=== PATIENT | male | born 1950 | race Caucasian/White ===

== ENCOUNTER 2017-08-15 07:58 | Emergency (ER) | payer MEDICARE, MEDICAID | END 2017-08-15 08:43 | disposition left against medical advice (07) | LOC: ERS 07:58 | DX: Z53.21 Procedure and treatment not carried out due to patient leaving prior to being seen by health care provider (principal) ==

== ENCOUNTER 2017-08-26 04:12 | Inpatient (IN) | payer MEDICARE, MEDICAID ==
[2017-08-26 05:00] LABS: #Eosinphils 0.4 thou/uL (0.0-0.7); #Lymphocytes 1.5 thou/uL (1.20-3.40); #Monocytes 0.4 thou/uL (0.11-0.59); #Neutrophils 5.6 thou/uL (1.40-6.50); %Basophils 0.6 % (0.0-1.0); %Eosinophils 5.1 % (0.0-10.0); %Lymphocytes 18.6 % (21.0-51.0); %Monocytes 5.5 % (0.0-10.0); Mean Platelet Volume 7.8 fL (7.4-10.4); Red Blood Cell (RBC) Count 4.53 mill/uL (4.70-6.10); White Blood Cell (WBC) Count 7.9 thou/uL (4.8-10.8)
[2017-08-26] MEDS ORDERED: methylPREDNISolone Sod Succ/PF 125 MG/2 ML VIAL ONE ×2 (05:01→05:02)
[2017-08-26] MEDS ORDERED: Water For Inject, Bacteriostat 30 ML ONE (05:03)
[2017-08-26 05:16] LABS: ALT (SGPT) 13 U/L (8-55); AST (SGOT) 13 U/L (5-34); Alkaline Phosphatase 110 U/L (40-150); Anion Gap 14 mmol/L (10-20); BUN (Urea Nitrogen) 19 mg/dL (8.4-25.7); Bilirubin, Total 0.3 mg/dL (0.2-1.2); Calc. Creatinine Clearance 0 mL/min (70-130); Calcium 9.4 mg/dL (7.8-10.44); Carbon Dioxide 25 mmol/L (23-31); Chloride 99 mmol/L (98-107); Estimated GFR-MDRD 41; Globulin 3.5 g/dL (2.4-3.5); Protein, Total 7.5 g/dL (5.8-8.1)
[2017-08-26 05:19] LABS: Troponin I Less than 0.010 ng/mL (< 0.028)
[2017-08-26 05:29] LABS: Anion Gap 12 mmol/L (-14-95); T. Carbon Dioxide 28.3 mmol/L (1.0-85.0); vO2 Saturation-calc 84.1 % (0.0-100.0)
[2017-08-26] MEDS ORDERED: Morphine 10 MG/ML VIAL ONE (06:14)
--- NOTE | 2017-08-26 08:02 | RAD ---
LEFT FOOT 3 VIEWS: Date: 08/26/17 HISTORY: 66-year-old male with left second toe pain. FINDINGS: There have been amputation changes of the first and second toe with stable appearing first toe. The second toe amputation shows progressive bone loss when compared to the 04/22/17 study. The distal an d middle phalanges are totally eroded and there is some bony demineralization within the medial aspe ct of the distal first metatarsal. If the patient has not had intervening surgical amputation, then this certainly would be evidence for extensive osteomyelitis and progressive bony destruction. IMPRESSION: Destructive changes of the distal second toe with progressive bony destruction of the distal and mid dle phalanges when compared to prior studies, the most recent of which is 06/16/17. Evidence for dede tructive changes of the medial aspect of the second toe proximal interphalangeal joint, as well as t he medial aspect of the distal proximal phalanx, certainly concerning for osteomyelitis. POS: [facility]
--- NOTE | 2017-08-26 08:23 | RAD ---
PORTABLE CHEST ONE VIEW: Date: 08-26-17 Time: 4:43 a.m. History: Shortness of breath. FINDINGS/IMPRESSION: The heart is enlarged. No focal areas of consolidation or pneumothorax, jan pulmonary edema or ple ural effusions are seen. POS: [facility]
[2017-08-26] MEDS ORDERED: Ondansetron ODT 4 MG TAB PO PRN (10:39)
[2017-08-26] MEDS ORDERED: traMADol HCl 50 MG TAB PO PRN ×2 (10:39→15:45)
[2017-08-26] MEDS ORDERED: Sodium Chloride 0.9% 1,000 ML IV SCH (10:39)
[2017-08-26] MEDS ORDERED: Acetaminophen 325 MG TAB PO PRN (10:39)
[2017-08-26] MEDS ORDERED: Morphine PF 1 MG/ML SYR IVP PRN (10:47)
[2017-08-26 11:25] LABS: Hemoglobin A1c 8.5 % (4.0-6.0)
[2017-08-26] MEDS ORDERED: Calcium Chloride 1 GM/10 ML Abboject SYRINGE ONE (11:27)
[2017-08-26 11:30] LABS: Troponin I 0.011 ng/mL (< 0.028)
[2017-08-26] MEDS ORDERED: Dextrose 50% Abboject 50 ML SYRINGE SLOW IVP PRN (11:31)
[2017-08-26] MEDS ORDERED: HumaLOG 300 UNITS/3 ML VIAL SC PRN ×2 (11:31)
[2017-08-26] MEDS ORDERED: Dextrose 5% in Water 1,000 ML IV PRN (11:31)
[2017-08-26] MEDS ORDERED: Labetalol HCl 100 MG/20 ML VIAL SLOW IVP PRN (11:42)
[2017-08-26] MEDS ORDERED: Hydrochlorothiazide 25 MG TAB PO SCH (12:00)
--- NOTE | 2017-08-26 12:03 | PDOC.EVN ---
Attending Addendum - Attending Addendum I personally evaluated the patient and discussed the management with Dr. Elliott. I agree with the History, Examination, Assessment and Plan documented in his H& P with any addition or exceptions noted below. Patient with longstanding history of osteomyelitis with outpatient wound care but suggestion for amputation presented to ER this morning with complaints of shortness of breath, change in sputum production, and worsening toe appearance and pain. His vitals are stable and do not indicate hypoxia, and his physical exam shows diminished air entry in lungs but no overt consolidation. His L foot toe shows obvious tissue destruction and drainage. CXR shows no acute process, but XR of the toe shows bony changes consistent with continued osteomyelitis. He is being admitted to our service for mild COPD exacerbation but most significantly for his continued toe osteomyelitis with likely extension. He will be started on Vanc and have consulted wound care and Gen Surg for possible debridement versus most likely amputation. He will be started on Levaquin for presumed COPD exacerbation, and this does not seem to be causing much issue from respiratory standpoint as he has only minimal wheezes and is satting well on room air. Await recommendations from Gen Surg for further treatment. Patient should be admitted under inpatient status due to significant L foot digit osteomyelitis.
[2017-08-26] MEDS: Sodium Chloride 0.9% 1,000 ML IV SCH (12:13)
[2017-08-26] MEDS ORDERED: Morphine 4 MG/ML VIAL SLOW IVP PRN (14:57)
--- NOTE | 2017-08-26 15:28 | HP-2 ---
DATE OF ADMISSION: 08/26/2017 LOCATION OF ADMISSION: [facility]. ATTENDING: Dr. Colvin. RESIDENT: Adi Elliott, PGY-1 CHIEF COMPLAINT: Left toe pain and shortness of breath. HISTORY OF PRESENT ILLNESS: This is a 66-year-old male that presents with left second toe pain and reporting having shortness of breath. Has had a severe infection in his left second toe for months now. He has been followed up and hospitalized for this previously in October. He has been following up outpatient at the wound clinic and getting regimens of antibiotics. Last time, he followed up at [facility] was about a month ago and he states pain has gotten way worse. It is hard for him to walk on it. It is having drainage from it right now. Patient reports having a cold as well for the last 3-4 days and has been coughing up a thick yellow sputum. He reports having fever and chills for the last 3-4 days as well and has not recorded a fever. He said he has been waking up short of breath and taking him 4-5 minutes to get his breath back. Gets SOB when walking. Denies any nasal congestion. Denies any chest pain. Denies any nausea or vomiting. The patient also states that he had a Staph infection in his chest when he had open heart surgery and they had to do a clean out. He has multiple little brown melendez on his legs, likely septic emboli from the infection is what he states. Denies any other concerns or complaints at this time. After reviewing the patient's records, he was previously hospitalized in October of this year, got an MRI which showed osteomyelitis of the left toe. Patient would then leave AMA from that hospital visit and has since then been trying to take care of the toe with outpatient antibiotics in [facility]. REVIEW OF SYSTEMS: All review of systems is not listed in the HPI or otherwise negative at this time. PAST MEDICAL HISTORY: Hyperlipidemia, COPD, type 2 diabetes mellitus, hypertension, coronary artery disease, status post 3-vessel CABG, history of left second digit osteomyelitis. PAST SURGICAL HISTORY: Left wrist surgery and 3-vessel CABG. ALLERGIES: No known drug allergies. MEDICATIONS: He reports lisinopril and metformin unknown dose at this time. FAMILY HISTORY: His dad had heart trouble and his mom is still living. SOCIAL HISTORY: Smokes 1 pack per day for the last 50 years. Denies alcohol use and smokes marijuana on occasion. PHYSICAL EXAMINATION: VITAL SIGNS: Temperature is 97.6, pulse is 84, respirations 20, O2 sat is 97% on room air, and blood pressure was 178/78. GENERAL: He is alert and oriented x3. He does appear to be somewhat ill. He is well-developed, obese, and appropriately interactive. EYES: PERRLA. Conjunctivae within normal limits. ENT: Nasal mucosa within normal limits. Oropharynx is within normal limit. No erythema noted. NECK: Supple, no lymphadenopathy, no thyromegaly, no bruits. CARDIOVASCULAR: Regular rate and rhythm, no murmur, no gallops. Radial pulses palpated bilaterally. Pedal pulses are palpated bilaterally, but very faint. RESPIRATORY: He has normal breathing effort, no retractions. He does have expiratory wheezes noted in all lung lobes on expiration, maybe some crackles on auscultation as well. SKIN: His feet are cool to touch. Other extremities are warm. He does have a little like brown kind of hurt looks like scarred lesions all over his left leg. He does have vitiligo noted on his arms. He does have what looks like actinic keratosis noted on his hands as well. ABDOMEN: Soft and nontender to palpation. Bowel sounds are in all 4 quadrants. No masses. It is distended. He is noted to have an umbilical hernia. EXTREMITIES: No edema. MUSCULOSKELETAL: Structure is within normal limit. Tone is within normal limit. He has full range of motion. Does have pain to palpation of the toe and his left second toe is red and black. It is very deformed at this time. It is currently draining a purulent fluid from an open site, redness extends to the base of the toe on his right big toe as well. He does have a little bit redness maybe a little black, possibly dry blood. NEUROLOGIC: No focal neuro deficit. PSYCHIATRIC: Appropriate. LABORATORY DATA: White blood cell count is 7.9, hemoglobin 13.5, hematocrit 40 , platelet count is 383. Sodium is 134, potassium is 4.2, chloride is 99, bicarbonate is 25, BUN is 19, creatinine is 1.67, glucose is 323, calcium is 8.4 , total protein is 7.5, albumin is 4.0, total bilirubin 0.3, AST 13, ALT 13, alkaline phosphatase is 110. ESR is 37, CK-MB was 3.4. Troponin was less than 0.01 and BNP was 114.9. Chest x-ray 08/26/2017, showed the heart is enlarged, no focal areas of consolidation or pneumothorax, jan pulmonary edema or pleural effusions are seen. Foot x-ray 08/26/2017, showed destructive changes of the distal second toe with progressively bony destruction of the distal middle phalanges when compared to prior studies most recent of which is 2016. Evidence for destructive changes in the medial aspect of the second toe proximal interphalangeal joint as well as the medial aspect of the distal proximal phalanx, certainly concerning for osteomyelitis. ASSESSMENT AND PLAN: 1. Osteomyelitis. Patient has a known diagnosis of osteomyelitis in the left second toe based on MRI from October of this year from previous hospitalization. The foot x-ray today again is concerning for osteomyelitis. There is also purulent drainage and severe pain when walking in the toe. Patient has had fevers and chills and has been acutely ill recently. At this time, we will consult General Surgery and await assessment. Due to images, I do not think there is any need for MRI at this time. We will continue to trend CBCs and check for signs of infection. He is afebrile currently. We will start him on vancomycin for antibiotic coverage and give him tramadol for moderate pain and morphine for severe pain. 2. Mild chronic obstructive pulmonary disease exacerbation. We will start him on Levaquin. He is currently satting 97% on room air, not requiring oxygen at this time. He got 1 dose of Solu-Medrol in the ER. Currently, with infection and possibly surgery, we will not continue with prednisone at this time. We will also schedule DuoNebs q.4 hours and scheduled p.r.n. DuoNebs as needed for shortness of breath as he is wheezing. We also started his Symbicort inhaler as well. 3. Acute kidney injury. Creatinine is 1.67, which is elevated from his baseline at previous hospital visits. We will start him on fluids at a rate of 75. Keep fluids at a lower rate as he does have a history of congestive heart failure and will continue to monitor BMPs daily. 4. Hypertension. Blood pressure is elevated at this time. Likely, he has not been taking his lisinopril. We will hold lisinopril at this time with elevated creatinine. We will start him on hydrochlorothiazide for now and monitor. Also , we will have labetalol IV p.r.n. if systolic blood pressure gets above 180. 5. Type 2 diabetes mellitus. I am holding his metformin due to acute kidney injury. We will put him on a mild sliding scale insulin. Check Accu-Cheks a.c. and at bedtime. 6. History of congestive heart failure. We will keep him on a low dose of fluid for problems above and will continue. He is not fluid overloaded at this time. We will continue to monitor for signs of fluid overload. 7. Deep venous thrombosis prophylaxis with the infection open. We will just use sequential compression devices for deep venous thrombosis prophylaxis. MTDD
[2017-08-26] MEDS ORDERED: Acetaminophen 500 MG TAB PO PRN (15:45)
--- NOTE | 2017-08-26 17:26 | HP ---
HISTORY OF PRESENT ILLNESS: [facility] Nolan Carmichael is a 66-year-old male, obese, diabetic, 6 foot, 258 pounds, 33 BMI, on oral hypoglycemics, admitted with a left second toe osteomyelitis. Plain x-rays reveal destructive phalangeal changes. I have been asked to see him. Plan is to amputate his left second toe tomorrow in the operating room, probably under sedation of anesthesia and plan applicatio n of wound VAC and arranged discharge home later this week or weekend with outpatient [facility] wound care , VAC care outpatient beginning next week. ALLERGIES: None. SOCIAL HISTORY: Tobacco a pack per day. Alcohol 1 or 2 beers a week. MEDICATIONS: Metoprolol 12.5 mg b.i.d., Symbicort inhaler b.i.d., albuterol inhaler q.6 hours p.r.n ., lisinopril 20 mg at bedtime, in the hospital he was given vancomycin and Zosyn. PAST SURGICAL HISTORY: Coronary artery bypass grafting at [facility] [place] in [place] six years ago f or myocardial infarction. He had a Staph infection postoperatively requiring sternal debridement an d flaps. He has never had a colonoscopy. PAST MEDICAL HISTORY: Hypertension, diabetes mellitus, non-insulin dependent; obesity, osteomyeliti s, left second toe, COPD with continued tobacco abuse, diastolic dysfunction with echocardiogram per formed on 04/2016, cardiac nuclear stress test, 04/16/2016 without evidence of ischemia, ejection fr action of 36% with global hypokinesis. Echocardiogram 04/17/2016 diastolic dysfunction 45%-50% ejec tion fraction by echo, lower extremity MRI 10/22/2016 second digit distal phalanx osteomyelitis. Ul trasound abdomen, 06/19/2015, normal. Carotid Doppler study, 06/01/2015, no evidence of hemodynamic ally significant stenosis. PHYSICAL EXAMINATION GENERAL: 6 foot, 258 pounds, 33 BMI. VITAL SIGNS: 97.6, 84, 178/78. HEENT: Unremarkable. LUNGS: Clear to auscultation. CARDIAC: Regular rate and rhythm without murmur or gallop. ABDOMEN: Obese, sternotomy scar consistent with past history of Staph infection. EXTREMITIES: Palpable femoral, popliteal, dorsalis pedis pulses. Left second toe open wound with e xposed bone cellulitis. LABORATORY DATA: Hemoglobin A1c 8.5: Sodium 134, BUN 19, creatinine 1.67, white count 7, hemoglobi n 13. ASSESSMENT AND PLAN: 1. Osteomyelitis, left second toe. We would recommend amputation of left second toe with healing b y secondary intention. We will plan this tomorrow. We will arrange wound VAC postoperatively. Cou ld be discharged home with oral antibiotics later in the week, Friday or Friday, and arrange [facility] wound care appointment for outpatient wound VAC treatment. We will see the patient in my office in 3-4 weeks and follow patient in outpatient wound care. I expect this wound heal as he has palpable pulses, despite tobacco abuse. 2. Chronic obstructive pulmonary disease. 3. Ongoing tobacco abuse. 4. Coronary artery disease, stable. 5. Obesity.
[2017-08-26] MEDS: traMADol HCl 50 MG TAB PO PRN (18:24)
[2017-08-26] MEDS: Mometasone/Formoterol 120 PUFF INHALER INH SCH (18:57)
[2017-08-26] MEDS ORDERED: Non-Formulary Item 1 EACH (Budesonide-Formoterol [Symbicort 80-4.5] 2 PUFF) INH SCH (21:00)
[2017-08-27] MEDS: traMADol HCl 50 MG TAB PO PRN ×4 (02:44→22:14)
[2017-08-27] MEDS: Sodium Chloride 0.9% 1,000 ML IV SCH (02:46)
[2017-08-27 04:35] LABS: #Lymphocytes 0.9 thou/uL (1.20-3.40); #Monocytes 0.7 thou/uL (0.11-0.59); #Neutrophils 13.5 thou/uL (1.40-6.50); %Basophils 0.1 % (0.0-1.0); %Eosinophils 0.1 % (0.0-10.0); %Lymphocytes 6.2 % (21.0-51.0); %Monocytes 4.3 % (0.0-10.0); Hematocrit 37.2 % (42.0-52.0); Mean Platelet Volume 7.7 fL (7.4-10.4); Red Blood Cell (RBC) Count 4.18 mill/uL (4.70-6.10); White Blood Cell (WBC) Count 15.1 thou/uL (4.8-10.8)
[2017-08-27 04:53] LABS: Anion Gap 14 mmol/L (10-20); BUN (Urea Nitrogen) 25 mg/dL (8.4-25.7); Calc. Creatinine Clearance 88 mL/min (70-130); Calcium 9.3 mg/dL (7.8-10.44); Carbon Dioxide 24 mmol/L (23-31); Chloride 101 mmol/L (98-107); Estimated GFR-MDRD 51
[2017-08-27] MEDS ORDERED: SODIUM CHLORIDE IVPB SCH ×2 (06:30)
[2017-08-27] MEDS ORDERED: ADMIXTURE FEE IVPB SCH ×2 (06:30)
[2017-08-27] MEDS ORDERED: VANCOMYCIN HCL IVPB SCH ×2 (06:30)
[2017-08-27] MEDS: Mometasone/Formoterol 120 PUFF INHALER INH SCH ×2 (07:02→19:08)
[2017-08-27 07:32] LABS: Iron 90 ug/dL (65-175)
[2017-08-27] MEDS: Hydrochlorothiazide 25 MG TAB PO SCH (07:45)
[2017-08-27] MEDS: Polyethylene Glycol 3350 17 GM Packet PO SCH (07:46)
[2017-08-27] MEDS: Aspirin 325 MG TAB PO SCH (07:46)
--- NOTE | 2017-08-27 08:02 | PDOC.FM ---
- Subjective Subjective: Pt says he is doing much better. Says breathing and cough is improved. Was wondering about a knot on the back of his head. Feels like sebaceous cyst or lipoma. No redness. Currently not causing pain. Pt is comfortable awaiting surgery later today. Denies any fever chills overnight. Denies any nausea or vomiting. - Objective MAR Reviewed: Yes Vital Signs & Weight: Vital Signs (12 hours) Temp Pulse Resp BP Pulse Ox 08/27/17 07:07 97.4 F L 64 20 163/71 H 97 08/27/17 07:04 97 08/27/17 07:02 74 16 97 08/27/17 03:00 98.0 F 89 20 148/69 H 95 08/26/17 23:10 97.5 F L 89 20 146/65 H 95 08/26/17 20:01 98.5 F 98 20 141/83 H 96 Weight Admit Weight 117.163 kg Weight 117.798 kg I&O: 08/26/17 08/27/17 08/28/17 06:59 06:59 06:59 Intake Total 2033 Output Total 1640 Balance 393 Result Diagrams: 08/27/17 03:54 08/27/17 03:55 Radiology Reviewed by me: Yes Radiology: L. Foot X-ray: Destructive changes of the distal second toe w/ progressive bony destruction of the distal and middle phalanges when compared to prior studies. Certainly concerning for osteomyelitis. <Adi Elliott - Last Filed: 08/27/17 08:00> - Objective Vital Signs & Weight: Vital Signs (12 hours) Temp Pulse Resp BP Pulse Ox 08/27/17 14:01 67 20 94 L 08/27/17 12:10 97.4 F L 65 20 104/56 L 97 08/27/17 08:07 97.4 F L 64 20 94 L 08/27/17 07:07 97.4 F L 64 20 163/71 H 97 08/27/17 07:04 97 08/27/17 07:02 74 16 97 Weight Admit Weight 117.163 kg Weight 117.798 kg I&O: 08/26/17 08/27/17 08/28/17 06:59 06:59 06:59 Intake Total 203 500 Output Total 1640 650 Balance 393 -150 Result Diagrams: 08/27/17 03:54 08/27/17 03:55 <Chico Colvin - Last Filed: 08/27/17 15:31> Phys Exam - Physical Examination HEENT: moist MMs Lump in back of head likely lipoma vs sebaceous cyst Neck: no nodes, no JVD, supple, full ROM Respiratory: no rales, no rhonchi, wheezing present Expirtory wheezes noted. Mild crackles Cardiovascular: RRR, no significant murmur, no rub Gastrointestinal: soft, non-tender, positive bowel sounds distended. Umbilical hernia noted L. second toe erythmeatous, black and deformed. No drainage noted today. Brown hard scar spots along legs biltaterally Neurological: non-focal, normal sensation, moves all 4 limbs Lymphatic: no nodes Psychiatric: normal affect, A&O x 3 Skin: no rash, normal turgor <Adi Elliott - Last Filed: 08/27/17 08:00> Dx/Plan (1) Osteomyelitis of ankle or foot Code(s): M86.9 - OSTEOMYELITIS, UNSPECIFIED Status: Acute Plan: -MRI back in October showed Osteomyelitis -Foot Xray concerning for Osteomyelitis -Had purulent drainage yesterday -General Surgery- Dr. Huang consulted. Will follow recommendations Plan is for amputation of toe today. Wound Vac will be placed after -Wound Care consulted to help with management -WBC elevated today. No fevers overnight. -On IV vancomycin. Will continue with IV abx at this time. -Tramadol for pain at this time (2) COPD exacerbation Code(s): J44.1 - CHRONIC OBSTRUCTIVE PULMONARY DISEASE W (ACUTE) EXACERBATION Status: Acute Plan: Mild COPD exacerbation -On Levaquin PO. Will schedule duonebs and have PRN for SOB -No steroids right now as has infection and getting surgery. Do not want to delay healing from surgery. -Not requiring O2 at this time. (3) MELODY (acute kidney injury) Code(s): N17.9 - ACUTE KIDNEY FAILURE, UNSPECIFIED Status: Acute Plan: MELODY on CKD3 -Cr improved today. -IV fluids @ 75 mls/hr. Will continue to monitor with daily BMP (4) CHF (congestive heart failure) Code(s): I50.9 - HEART FAILURE, UNSPECIFIED Status: Chronic Plan: No concerns for Fluid overload at this time -Getting IV fluids. Have rate below maintenance. Will continue to monitor (5) Diabetes type 2, uncontrolled Code(s): E11.65 - TYPE 2 DIABETES MELLITUS WITH HYPERGLYCEMIA Status: Chronic QualifierTitle: Diabetes mellitus complication status: with circulatory complication Diabetes mellitus complication detail: with other circulatory complications Diabetes mellitus intermediate accountant insulin use: without intermediate accountant use Qualified Code(s): E11.59 - Type 2 diabetes mellitus with other circulatory complications Plan: Accuchecks Ac/HS -on Mild SSI, Blood glucose still elevated. will increase to moderate SSI -Holding metformin currently due to kidney injury. -Pt was non compliant with meds at home (6) Hypertension Code(s): I10 - ESSENTIAL (PRIMARY) HYPERTENSION Status: Chronic Plan: -BP elevated on admission. Was suppose to be on Lisinopril at home. Held lisinopril at this time due to kidney injury. -Started HCTZ for bp. BP still elevated. May need to increase dose. -Will continue to monitor and tx. <Adi Elliott - Last Filed: 08/27/17 08:00> Attending Addendum - Attending Addendum I personally evaluated the patient and discussed the management with Dr. Elliott. I agree with the History, Examination, Assessment and Plan documented above with any addition or exceptions noted below. Patient doing well this morning. He is improved from respiratory standpoint. He is going for amputation today of his toe affected by osteomyelitis. Further recs to come after surgery. <Chico Colvin - Last Filed: 08/27/17 15:31>
[2017-08-27] MEDS ORDERED: Dextrose 50% Abboject 50 ML SYRINGE SLOW IVP PRN (08:14)
[2017-08-27] MEDS ORDERED: Dextrose 5% in Water 1,000 ML IV PRN (08:14)
[2017-08-27] MEDS ORDERED: FLU VACC QS2017-18 36 mo. & older 0.5 ML SYRINGE IM ONE (09:00)
[2017-08-27] MEDS ORDERED: Hydrochlorothiazide 25 MG TAB PO ONE (09:00)
[2017-08-27] MEDS ORDERED: Fentanyl 100 MCG/2 ML VIAL ONE (10:29)
[2017-08-27] MEDS ORDERED: Midazolam HCl 2 mg/2 ml Vial ONE (10:29)
[2017-08-27] MEDS ORDERED: Meperidine HCl/PF 25 MG/ML VIAL ONE (10:35)
[2017-08-27] MEDS ORDERED: Bupivacaine/Epinephrine 0.25% 30 ML VIAL ONE (11:03)
[2017-08-27] MEDS ORDERED: Propofol 200 MG/20 ML VIAL ONE (11:05)
[2017-08-27] MEDS ORDERED: ePHEDrine/0.9% NaCl/PF SYRINGE 50 mg/10 ml ONE (11:05)
--- NOTE | 2017-08-27 11:45 | OP ---
DATE OF PROCEDURE: 08/27/2017 PREOPERATIVE DIAGNOSES: Diabetic infection, left second toe with osteomyelitis and exposed bone, per ipheral artery disease (weakly dopplerable posterior tibial and dorsalis pedis, weakly palpable left popliteal, palpable left femoral, but diminished signal). Ongoing tobacco abuse, one-half pack per d ay, previous sternotomy, coronary artery bypass grafting in [place] 6 years ago with postoperative Sta ph infection and secondary healing sternotomy. Chronic kidney disease, BUN 25, creatinine 1.4, GFR 5 1. PROCEDURE: Amputation of left second toe through the proximal phalanx. Wound left open by healing b y secondary intention. Wound Care team placed a wound VAC. SURGEON: Dr. Lico Huang ANESTHESIA: LMA digital block 0.25% Marcaine with epinephrine, 30 mL, mixed with 2% Xylocaine, 10 mL . PLAN: Postoperatively the patient will be discharged home with oral antibiotics at the end of the we ek, outpatient wound VAC will be arranged, outpatient [facility] wound care outpatient appointment for VAC c are, consultation with Dr. Jones Lay for his PAD, consideration of arteriogram runoff to optimize circulation. PROCEDURE IN DETAIL: The patient was taken to the operating room where under intravenous sedation, l eft lower extremity was prepared with ChloraPrep, draped in routine fashion. The patient's the foot was very sensitive, neuropathy did not seem as severe and thus digital block was performed which he d id not tolerate well. LMA anesthesia required. Incision was made for amputation of the left second toe to the proximal phalanx carried down through the skin and subcutaneous tissue and bone transected with a bone cutter, resected proximally with rongeur. No cautery was needed for hemostasis. There was delayed bleeding in the soft tissues. Wound Care team arrived to place a wound VAC. The patient tolerated the procedure well. Await Dr. Jones Lay's evaluation.
[2017-08-27] MEDS ORDERED: Insulin Regular 300 UNITS/3 ML VIAL IVP SCH (12:45)
--- NOTE | 2017-08-27 14:37 | CON ---
DATE OF CONSULTATION: 08/27/2017 REASON FOR CONSULTATION: Left lower extremity vascular evaluation. PERTINENT HISTORY: Patient is a 66-year-old male admitted yesterday with a significant appearing infection involving the left second toe. Plain films revealed osteomyelitic destruction of the distal and middle phalanges. This morning he underwent amputation of the toe to the proximal phalanx with wound healing by secondary intention utilizing a wound VAC dressing. At this procedure, there was very minimal bleeding from the operative site. Left lower extremity vascular evaluation was subsequently requested. PAST MEDICAL HISTORY: 1. Coronary artery disease, status post coronary artery bypass grafting x3, 2012, in [facility] with left internal mammary artery placed to the LAD and separate vein grafts placed to the OM and RCA. 2. Postoperative sternal wound infection, managed at the same institution. 3. Hypertension. 4. Diabetes. 5. Chronic obstructive pulmonary disease. 6. Hepatitis C. 7. Substance abuse. 8. Remote stroke with no residual. PAST SURGICAL HISTORY: 1. Coronary artery bypass grafting and sternal wound history as described above. 2. Tonsillectomy. 3. Partial right index finger amputation. 4. Partial left great toe amputation. ALLERGIES: None. SOCIAL HISTORY: Long-term smoker, currently at 1 pack per day. Nondrinker at present, but uses marijuana on occasion. FAMILY HISTORY: Significant for coronary artery disease in his father. REVIEW OF SYSTEMS: No history of kidney or liver disease. LABORATORY DATA: Hemoglobin 12.2. Platelet count 262,000. Creatinine 1.40. CURRENT MEDICATIONS: Aspirin, insulin sliding scale, hydrochlorothiazide, Levaquin, Symbicort inhaler, MiraLax, IV vancomycin, and multiple p.r.n. medications. PHYSICAL EXAMINATION: VITAL SIGNS: Height 6 feet 2 inches, weight 259 pounds. Blood pressure 163/70 , heart rate 64, temperature 97.4. GENERAL: Obese male in no acute distress. He is fully oriented. HEENT: Grossly unremarkable. NECK: Without JVD or adenopathy. LUNGS: Clear with good inspiratory effort. CHEST: With healed sternal wound, which appears to have done so by secondary intention. ABDOMEN: Soft and nontender, without palpable mass. EXTREMITIES: Without edema. VASCULAR: Palpable radial, femoral, and popliteal pulses bilaterally. He has monophasic Doppler signals heard at each peroneal, DP, and PT. No carotid bruits were appreciated. Abdominal aorta is nonpalpable. NEUROLOGIC: No focal deficits. IMPRESSION: Presumed left tibioperoneal disease with potential for poor wound healing left second toe amputation sites. RECOMMENDATIONS: Aortogram with lower extremity runoff and possible left lower extremity percutaneous intervention to which the patient is in agreement following discussion with his referring, general surgeon and myself. Indications, benefits, alternatives, and risks were explained in detail to the patient. All questions were answered. The patient agrees to proceed without reservations. LARRY
[2017-08-27] MEDS: Insulin Regular 300 UNITS/3 ML VIAL SC PRN ×2 (18:05→22:15)
[2017-08-28 05:51] LABS: Vancomycin, Trough 6.3 ug/mL
[2017-08-28] MEDS: traMADol HCl 50 MG TAB PO PRN ×2 (05:55→23:23)
[2017-08-28 06:27] LABS: #Eosinphils 0.2 thou/uL (0.0-0.7); #Lymphocytes 2.1 thou/uL (1.20-3.40); #Monocytes 0.5 thou/uL (0.11-0.59); #Neutrophils 5.3 thou/uL (1.40-6.50); %Basophils 0.5 % (0.0-1.0); %Eosinophils 2.6 % (0.0-10.0); %Lymphocytes 25.5 % (21.0-51.0); %Monocytes 6.3 % (0.0-10.0); Red Blood Cell (RBC) Count 4.15 mill/uL (4.70-6.10); White Blood Cell (WBC) Count 8.2 thou/uL (4.8-10.8)
[2017-08-28] MEDS: Mometasone/Formoterol 120 PUFF INHALER INH SCH ×2 (06:34→19:07)
[2017-08-28 07:01] LABS: Anion Gap 12 mmol/L (10-20); BUN (Urea Nitrogen) 22 mg/dL (8.4-25.7); Calc. Creatinine Clearance 111 mL/min (70-130); Calcium 9.4 mg/dL (7.8-10.44); Carbon Dioxide 28 mmol/L (23-31); Chloride 100 mmol/L (98-107); Estimated GFR-MDRD 66
[2017-08-28] MEDS ORDERED: Midazolam HCl 2 mg/2 ml Vial ONE (07:18)
[2017-08-28] MEDS ORDERED: Fentanyl 100 MCG/2 ML VIAL ONE (07:18)
--- NOTE | 2017-08-28 08:56 | PDOC.FM ---
- Objective Vital Signs & Weight: Vital Signs (12 hours) Temp Pulse Resp BP Pulse Ox 08/28/17 06:34 57 L 16 96 08/28/17 06:32 57 L 16 96 08/28/17 05:27 97.7 F 59 L 18 167/81 H 95 08/28/17 01:08 97.8 F 60 18 151/83 H 95 08/28/17 00:51 50 L 16 95 08/28/17 00:16 97.4 F L 60 18 Weight Admit Weight 117.163 kg Weight 117.798 kg I&O: 08/27/17 08/28/17 08/29/17 06:59 06:59 06:59 Intake Total 2033 1300 Output Total 1640 1425 Balance 393 -125 Result Diagrams: 08/28/17 05:22 08/28/17 05:22 <Adi Elliott - Last Filed: 08/29/17 08:38> - Objective Vital Signs & Weight: Vital Signs (12 hours) Temp Pulse Resp BP BP Pulse Ox 08/29/17 10:52 161/80 H 08/29/17 10:50 76 161/80 H 08/29/17 08:11 76 161/80 H 08/29/17 06:44 97 08/29/17 06:43 76 16 98 08/29/17 06:42 77 16 97 08/29/17 03:56 97.6 F 65 17 169/70 H 92 L 08/29/17 00:43 58 L 16 95 Weight Admit Weight 117.163 kg Weight 117.798 kg I&O: 08/28/17 08/29/17 08/30/17 06:59 06:59 06:59 Intake Total 1300 1640 Output Total 1425 1050 Balance -125 590 Result Diagrams: 08/29/17 07:10 08/29/17 08:01 <Aleja Collins - Last Filed: 08/29/17 12:14> Dx/Plan (1) Osteomyelitis of ankle or foot Code(s): M86.9 - OSTEOMYELITIS, UNSPECIFIED Status: Acute Plan: -MRI back in October showed Osteomyelitis -Foot Xray concerning for Osteomyelitis -Had purulent drainage on admission -General Surgery- Dr. Huang consulted. Will follow recommendations Post Op Day 1 of amputation of 2nd L. Toe Wound Vac in Place -Cardiovascular Surgery- Dr. Ervin consulted -Surgery today for arterogram and to help with blood flow for healing to amputation site -Wound Care consulted to help with management -WBC decreased today. -On IV vancomycin. Will continue with IV abx at this time. -Tramadol for pain at this time (2) COPD exacerbation Code(s): J44.1 - CHRONIC OBSTRUCTIVE PULMONARY DISEASE W (ACUTE) EXACERBATION Status: Acute Plan: Mild COPD exacerbation -On Levaquin PO. Will schedule duonebs and have PRN for SOB -No steroids right now as has infection and getting surgery. Do not want to delay healing from surgery. -Not requiring O2 at this time. (3) MELODY (acute kidney injury) Code(s): N17.9 - ACUTE KIDNEY FAILURE, UNSPECIFIED Status: Resolved Plan: MELODY on CKD3 -Resolved today -Cr improved today. -Will continue to monitor with daily BMP (4) CHF (congestive heart failure) Code(s): I50.9 - HEART FAILURE, UNSPECIFIED Status: Chronic Plan: No concerns for Fluid overload at this time -IV fluids discontinued. Will continue to monitor (5) Diabetes type 2, uncontrolled Code(s): E11.65 - TYPE 2 DIABETES MELLITUS WITH HYPERGLYCEMIA Status: Chronic QualifierTitle: Diabetes mellitus complication status: with circulatory complication Diabetes mellitus complication detail: with other circulatory complications Diabetes mellitus intermediate school teacher insulin use: without intermediate school teacher use Qualified Code(s): E11.59 - Type 2 diabetes mellitus with other circulatory complications Plan: Accuchecks Ac/HS -on Mild SSI, Blood glucose still elevated. will increase to moderate SSI -Will restart metformin at this time -Pt was non compliant with meds at home (6) Hypertension Code(s): I10 - ESSENTIAL (PRIMARY) HYPERTENSION Status: Chronic Plan: -BP elevated on admission. Was suppose to be on Lisinopril at home. Will restart lisinopril at this time -Stopped HCTZ and started on lisinopril at this time. -Will continue to monitor and tx. <Adi Elliott - Last Filed: 08/29/17 08:38> Attending Addendum - Attending Addendum I personally evaluated the patient and discussed the management with Dr. Elliott on 08/28/17. I agree with the History, Examination, Assessment and Plan documented above with any addition or exceptions noted below. Patient comfortable post-op. No issues. Wound vac in place. Plan on PT evaluation ANILA. <Aleja Collins - Last Filed: 08/29/17 12:14>
[2017-08-28] MEDS ORDERED: Heparin 10,000 UNITS/1 ML VIAL ONE (08:59)
[2017-08-28] MEDS ORDERED: ADMIXTURE FEE IVPB SCH (09:00)
[2017-08-28] MEDS ORDERED: VANCOMYCIN HCL IVPB SCH (09:00)
[2017-08-28] MEDS ORDERED: SODIUM CHLORIDE IVPB SCH (09:00)
[2017-08-28] MEDS ORDERED: HYDROcodone/Acetaminophen 5/325 mg Tablet PO PRN (09:43)
[2017-08-28] MEDS ORDERED: Sodium Chloride 0.9% 1,000 ML IV SCH (09:45)
[2017-08-28] MEDS ORDERED: HYDROcodone/Acetaminophen 5/325 mg Tablet ONE (10:08)
--- NOTE | 2017-08-28 11:26 | OP ---
DATE OF PROCEDURE: 08/28/2017 PREOPERATIVE DIAGNOSES: Bilateral lower extremity peripheral vascular disease with clinical evidence of poor wound healing left second toe amputation site. PROVIDER RELATIONS SPECIALIST: Nikolas Ervin M.D. RISK CONTROL ANALYST: Farhad. POSTOPERATIVE DIAGNOSIS: Bilateral lower extremity peripheral vascular disease with clinical evidence of poor healing left second toe amputation site. ANESTHESIA: IV sedation and local at right groin access site. PROCEDURES PERFORMED: 1. Ultrasound guided access right common femoral artery. 2. Aortogram with iliofemoral runoff. 3. Selective left lower extremity runoff. 4. Selective left popliteal angiogram. 5. FLOOR COVERINGS SALESPERSON left posterior tibial artery (Assumption 2 x 220 with 2 inflations held at 10 atmospheres for 3 minutes each). 6. Sheath injection right lower extremity runoff. FINDINGS/INTERPRETATION: 1. Patent right and left renal arteries. 2. Patent infrarenal abdominal aorta and bilateral iliac systems. 3. Patent left common femoral artery, profunda, SFA, popliteal artery across the knee, and tibioperoneal trunk. 50-60% ostial-proximal anterior tibial artery stenosis with long segment mid occlusion, reconstitution in the lower leg followed by a short segment subtotaled stenosis above the ankle beyond which the vessel did run into the foot. The peroneal artery was patent until just above the ankle where it became occluded with little reconstitution in the foot. The posterior tibial artery was the single continuous runoff vessel to the foot, however, had sequential proximal and mid distal stenoses. 4. Patent right common femoral artery, profunda, SFA, popliteal artery across the knee, and tibioperoneal trunk. Anterior tibial artery was occluded shortly after its origin. Two-vessel runoff was seen provided by diseased, but patent, posterior tibial and peroneal arteries. DESCRIPTION OF PROCEDURE: The patient was taken to the angiography suite. He was prepped and draped in the usual sterile fashion. Intravenous sedation was achieved with fentanyl. At the proposed right groin access site, local anesthesia was achieved with 1% Xylocaine. Using ultrasound guidance, right common femoral artery was accessed with the 5-Nigerian micropuncture guidewire and sheath. Guidewire and dilator were removed followed by passage of the [place]on guidewire. Sheath was removed and replaced with a conventional short 5- Nigerian sheath. Contra catheter was advanced. Aortogram was performed. Catheter was positioned just above the bifurcation and iliofemoral runoff performed. Bifurcation was ultimately negotiated with the Contra catheter and angled Glidewire. Contra catheter was exchanged for a long angled glide cath. Selective left lower extremity runoff was performed with catheter tip parked in the distal left external iliac artery. To better ascertain the runoff status below the knee, the angled Glidewire and long angle glide cath were passed distally with catheter tip parked in the popliteal artery just below the knee. DSA projections delineated the runoff status. Decision was made to intervene to the posterior tibial artery and possibly the proximal anterior tibial artery. The 5-Nigerian sheath was exchanged for a 5-Nigerian destination sheath. Angled Glidewire was exchanged for the 0.014 Luge wire. This wire was able to be passed through the posterior tibial artery areas of stenosis with the wire tip parked in the foot. Sizing led to selection of the 2 x 220 Assumption balloon. Decision was made to balloon the entire posterior tibial artery. Balloon catheter was passed with distal inflation performed first, followed by the second more proximal inflation. Each was held at 10 atmospheres for 3 minutes. Balloon catheter was removed. Angled glide cath was repositioned with tip parked just below the knee. Selective angiogram revealed an excellent result upon the intervened posterior tibial artery. At this point, attempt to intervene on the ostial-proximal anterior tibial artery was made. Unfortunately the guidewire could not pass distally and, therefore, effort was aborted. This had been attempted with the 0.014 victory wire. Victory wire was removed. Angled Glidewire was repositioned and destination sheath backed out with tip parked in the distal right external iliac artery. Sheath injection right lower extremity runoff was performed. Findings as described above. Total of 10,000 units of heparin given through the case was not reversed as ACT was 170. Destination sheath was pulled and pressure held. The patient appeared to tolerate the procedure without evident problems. ESTIMATED BLOOD LOSS: Estimated blood loss less than 20 mL. TOTAL CONTRAST: 40 mL. FLUOROSCOPY TIME 29.7 minutes. MTDD
[2017-08-28] MEDS: Polyethylene Glycol 3350 17 GM Packet PO SCH (12:15)
[2017-08-28] MEDS: Aspirin 325 MG TAB PO SCH (12:15)
[2017-08-28] MEDS: Hydrochlorothiazide 25 MG TAB PO SCH (12:17)
[2017-08-28 13:16] LABS: Hematocrit 35.8 % (37.5-51.0); RBC Folate Test Component 1257 ng/mL (>498)
[2017-08-28] MEDS: HYDROcodone/Acetaminophen 5/325 mg Tablet PO PRN ×2 (14:53→19:58)
[2017-08-28] MEDS ORDERED: Iopamidol 370 76% 50 ML VIAL FS ONE (15:12)
[2017-08-28] MEDS: metFORMIN 500 MG TAB PO SCH (16:23)
[2017-08-28] MEDS: Insulin Regular 300 UNITS/3 ML VIAL SC PRN ×2 (17:12→22:21)
[2017-08-28] MEDS ORDERED: Lisinopril 5 MG TAB PO SCH (21:00)
[2017-08-28] MEDS: Vancomycin HCl 1 GM in Premix Bag 1 BAG IVPB SCH (22:20)
--- NOTE | 2017-08-29 06:02 | CCL ---
DATE OF PROCEDURE: 08/28/2017 PREOPERATIVE DIAGNOSES: Bilateral lower extremity peripheral vascular disease with clinical evidence of poor wound healing left second toe amputation site. SKINNING MACHINE FEEDER: Nikolas Ervin M.D. INNER TUBE CUTTER: Farhad. POSTOPERATIVE DIAGNOSIS: Bilateral lower extremity peripheral vascular disease with clinical evidence of poor healing left second toe amputation site. ANESTHESIA: IV sedation and local at right groin access site. PROCEDURES PERFORMED: 1. Ultrasound guided access right common femoral artery. 2. Aortogram with iliofemoral runoff. 3. Selective left lower extremity runoff. 4. Selective left popliteal angiogram. 5. WORK AND FAMILY LIFE CONSULTANT left posterior tibial artery ([place] 2 x 220 with 2 inflations held at 10 atmospheres for 3 minutes each). 6. Sheath injection right lower extremity runoff. FINDINGS/INTERPRETATION: 1. Patent right and left renal arteries. 2. Patent infrarenal abdominal aorta and bilateral iliac systems. 3. Patent left common femoral artery, profunda, SFA, popliteal artery across the knee, and tibioperoneal trunk. 50-60% ostial-proximal anterior tibial artery stenosis, long segment mid occlusion, reconstitution in the lower leg followed by a short segment subtotaled stenosis above the ankle beyond which the vessel did run into the foot. The peroneal artery was patent until just above the ankle where it became occluded with little reconstitution in the foot. The posterior tibial artery was the single continuous runoff vessel to the foot, however, had sequential proximal and mid distal stenoses. 4. Patent right common femoral artery, profunda, SFA, popliteal artery across the knee, and tibioperoneal trunk. Anterior tibial artery was occluded shortly after its origin. Two-vessel runoff was seen provided by diseased, but patent, posterior tibial and peroneal arteries. DESCRIPTION OF PROCEDURE: The patient was taken to the angiography suite. He was prepped and draped in usual sterile fashion. Intravenous sedation was achieved with fentanyl. At the proposed right groin access site, local anesthesia was achieved with 1% Xylocaine. Using ultrasound guidance, right common femoral artery was accessed with the 5-Tristanian micropuncture guidewire and sheath. Guidewire and dilator were removed followed by passage of the [place] guidewire. Sheath was removed and replaced with a conventional short 5- Tristanian sheath. Contra catheter was advanced. Aortogram was performed. Catheter was positioned just above the bifurcation and iliofemoral runoff performed. Bifurcation was ultimately negotiated with the Contra catheter and angled Glidewire. Contra catheter was exchanged for a long angled glide cath. Selective left lower extremity runoff was performed with catheter tip parked in the distal left external iliac artery. To better ascertain the runoff status below the knee, the angled Glidewire and long angle glide cath were passed distally with catheter tip parked in the popliteal artery just below the knee. DSA projections delineated the runoff status. Decision was made to intervene to the posterior tibial artery and possibly the proximal anterior tibial artery. The 5-Tristanian sheath was exchanged for a 5-Tristanian destination sheath. Angled Glidewire was exchanged for the 0.014 Luge wire. This wire was able to be passed through the posterior tibial artery areas of stenosis with the wire tip parked in the foot. Sizing led to selection of the 2 x 220 [place] balloon. Decision was made to balloon the entire posterior tibial artery. Balloon catheter was passed with distal inflation performed first, followed by the second more proximal inflation. Each was held at 10 atmospheres for 3 minutes. Balloon catheter was removed. Angled glide cath was repositioned with tip parked just below the knee. Selective angiogram revealed an excellent result upon the intervened posterior tibial artery. At this point, attempt to intervene on the ostial/proximal anterior tibial artery was made. Unfortunately the guidewire could not pass distally and efforts, therefore, were aborted. This had been attempted with the 0.014 victory wire. Victory wire was removed. Angled Glidewire was repositioned and destination sheath backed out with tip parked in the distal right external iliac artery. Sheath injection right lower extremity runoff was performed. Findings as described above. The total of 10,000 units of heparin was not reversed as ACT was 170. Patient appeared to tolerate the procedure without evident problems. ESTIMATED BLOOD LOSS: Estimated blood loss less than 20 mL. TOTAL CONTRAST: 40 mL. FLUOROSCOPY TIME 29.7 minutes. POS: OLIVIA JUAREZ
[2017-08-29] MEDS: Mometasone/Formoterol 120 PUFF INHALER INH SCH ×2 (06:43→18:41)
[2017-08-29] MEDS: HYDROcodone/Acetaminophen 5/325 mg Tablet PO PRN (06:45)
[2017-08-29 07:26] LABS: #Eosinphils 0.3 thou/uL (0.0-0.7); #Lymphocytes 1.6 thou/uL (1.20-3.40); #Monocytes 0.6 thou/uL (0.11-0.59); #Neutrophils 5.1 thou/uL (1.40-6.50); %Basophils 0.3 % (0.0-1.0); %Eosinophils 4.4 % (0.0-10.0); %Lymphocytes 21.4 % (21.0-51.0); %Monocytes 7.6 % (0.0-10.0); Hematocrit 41.6 % (42.0-52.0); Mean Platelet Volume 7.5 fL (7.4-10.4); White Blood Cell (WBC) Count 7.6 thou/uL (4.8-10.8)
[2017-08-29] MEDS: Aspirin 325 MG TAB PO SCH (08:11)
[2017-08-29] MEDS: Polyethylene Glycol 3350 17 GM Packet PO SCH (08:11)
[2017-08-29] MEDS: metFORMIN 500 MG TAB PO SCH ×2 (08:11→17:36)
[2017-08-29] MEDS: Vancomycin HCl 1 GM in Premix Bag 1 BAG IVPB SCH (08:18)
[2017-08-29 08:36] LABS: Anion Gap 11 mmol/L (10-20); BUN (Urea Nitrogen) 20 mg/dL (8.4-25.7); Calc. Creatinine Clearance 119 mL/min (70-130); Calcium 9.2 mg/dL (7.8-10.44); Carbon Dioxide 29 mmol/L (23-31); Chloride 98 mmol/L (98-107); Estimated GFR-MDRD 72
[2017-08-29] MEDS ORDERED: Bisacodyl 10 MG SUPP PR ONE (08:41)
--- NOTE | 2017-08-29 08:41 | PDOC.FM ---
- Subjective Subjective: Post Op Day 2 of 2nd left toe amputation. Post op Day 1 of arteriogram. Pt is doing well. Denies any acute events overnight. Denies any fever or chills. Denies any nausea, vomiting, diarrhea. Has not had a bowel movement yet. - Objective Vital Signs & Weight: Vital Signs (12 hours) Temp Pulse Resp BP BP Pulse Ox 08/29/17 08:11 76 161/80 H 08/29/17 06:44 97 08/29/17 06:43 76 16 98 08/29/17 06:42 77 16 97 08/29/17 03:56 97.6 F 65 17 169/70 H 92 L 08/29/17 00:43 58 L 16 95 08/28/17 23:39 98.1 F 64 17 174/78 H 96 08/28/17 22:10 97.8 F 66 17 94 L Weight Admit Weight 117.163 kg Weight 117.798 kg I&O: 08/28/17 08/29/17 08/30/17 06:59 06:59 06:59 Intake Total 1300 1640 Output Total 1425 1050 Balance -125 590 Result Diagrams: 08/29/17 07:10 08/29/17 08:01 Radiology Reviewed by me: Yes (No new images to be reviewed at this time) <Adi Elliott - Last Filed: 08/29/17 08:39> - Objective Vital Signs & Weight: Vital Signs (12 hours) Temp Pulse Resp BP BP Pulse Ox 08/29/17 10:52 161/80 H 08/29/17 10:50 76 161/80 H 08/29/17 08:11 76 161/80 H 08/29/17 06:44 97 08/29/17 06:43 76 16 98 08/29/17 06:42 77 16 97 08/29/17 03:56 97.6 F 65 17 169/70 H 92 L 08/29/17 00:43 58 L 16 95 Weight Admit Weight 117.163 kg Weight 117.798 kg I&O: 08/28/17 08/29/17 08/30/17 06:59 06:59 06:59 Intake Total 1300 1640 Output Total 1425 1050 Balance -125 590 Result Diagrams: 08/29/17 07:10 08/29/17 08:01 <Chico oClvin Last Filed: 08/29/17 11:45> Phys Exam - Physical Examination HEENT: PERRLA, moist MMs, oral pharynx no lesions Neck: no nodes, no JVD, full ROM Respiratory: no wheezing, no rales, no rhonchi, clear to auscultation bilateral Cardiovascular: RRR, no significant murmur, no rub Gastrointestinal: soft, non-tender, positive bowel sounds Umbilical hernia noted Musculoskeletal: no edema, pulses present Amputation site dressed and wound vac intact. -No drainage noted on dressing Neurological: non-focal, normal sensation, moves all 4 limbs Lymphatic: no nodes Psychiatric: normal affect, A&O x 3 Skin: no rash, normal turgor <Adi Elliott - Last Filed: 08/29/17 08:39> Dx/Plan (1) Osteomyelitis of ankle or foot Code(s): M86.9 - OSTEOMYELITIS, UNSPECIFIED Status: Acute Plan: -MRI back in October showed Osteomyelitis -Foot Xray concerning for Osteomyelitis -Had purulent drainage on admission -General Surgery- Dr. Huang consulted. Will follow recommendations Post Op Day 2 of amputation of 2nd L. Toe Wound Vac in Place -Cardiovascular Surgery- Dr. Ervin consulted -Post Op Day 1 for arterogram and to help with blood flow for healing to amputation site -Wound Care consulted to help with management -PT/OT consulted and will assess mobility after surgery. Will await reccommendations -WBC decreased today. WNL -On IV vancomycin. Will continue with IV abx at this time. Vanc trough due at midday today. -Tramadol for pain at this time (2) COPD exacerbation Code(s): J44.1 - CHRONIC OBSTRUCTIVE PULMONARY DISEASE W (ACUTE) EXACERBATION Status: Acute Plan: Mild COPD exacerbation -On Levaquin PO. Will schedule duonebs and have PRN for SOB -No steroids right now as has infection and getting surgery. Do not want to delay healing from surgery. -Not requiring O2 at this time. -No SOB, breathing doing well (3) MELODY (acute kidney injury) Code(s): N17.9 - ACUTE KIDNEY FAILURE, UNSPECIFIED Status: Resolved Plan: MELODY on CKD4 -Resolved today -Cr improved today. -Will continue to monitor with daily BMP (4) CHF (congestive heart failure) Code(s): I50.9 - HEART FAILURE, UNSPECIFIED Status: Chronic Plan: No concerns for Fluid overload at this time. No edema, breath sounds clear. -IV fluids discontinued. Will continue to monitor (5) Diabetes type 2, uncontrolled Code(s): E11.65 - TYPE 2 DIABETES MELLITUS WITH HYPERGLYCEMIA Status: Chronic QualifierTitle: Diabetes mellitus complication status: with circulatory complication Diabetes mellitus complication detail: with other circulatory complications Diabetes mellitus usp insulin use: without moth exterminator use Qualified Code(s): E11.59 - Type 2 diabetes mellitus with other circulatory complications Plan: Accuchecks Ac/HS -on moderate SSI, Blood glucose still elevated. -Will restart metformin at this time -Pt was non compliant with meds at home (6) Hypertension Code(s): I10 - ESSENTIAL (PRIMARY) HYPERTENSION Status: Chronic Plan: -BP still elevated at this time. Was suppose to be on Lisinopril at home. Will restart lisinopril at this time. -Stopped HCTZ and started on lisinopril at this time. Lisinopril dose increased -Will continue to monitor and tx. <Adi Elliott - Last Filed: 08/29/17 08:39> Attending Addendum - Attending Addendum I personally evaluated the patient and discussed the management with Dr. Elliott. I agree with the History, Examination, Assessment and Plan documented above with any addition or exceptions noted below. Patient doing well today from a surgical standpoint. He has no pain in his foot s/p amputation, and had no issues with angiography and intervention yesterday. He is overall clear for discharge from surgical standpoint once we clarify oral abx for discharge. From respiratory standpoint, he is doing well and has normal sats on room air with no complaints of shortness of breath. 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 Infusion complete and he was given Benadryl for symptoms. Will check this afternoon. If doing well and cleared from surgery, should be ok to go home today. <Chico Colvin - Last Filed: 08/29/17 11:45>
[2017-08-29] MEDS ORDERED: Lisinopril 5 MG TAB PO SCH ×2 (09:00→10:45)
[2017-08-29] MEDS ORDERED: Nicotine 21 MG PATCH TD SCH (10:00)
[2017-08-29] MEDS ORDERED: diphenhydrAMINE 25 MG CAP PO SCH (10:00)
[2017-08-29] MEDS: traMADol HCl 50 MG TAB PO PRN (10:17)
[2017-08-29] MEDS: Lisinopril 10 MG TAB PO SCH (10:52)
[2017-08-29 12:00] VITALS: BMI 33.3
--- NOTE | 2017-08-29 15:27 | PRG ---
DATE OF SERVICE: 08/29/2017 SUBJECTIVE: Mr. Ankush Carmichael is doing well today. Left great toe amputation site looks very good , is granulating with healthy tissue. Wound VAC will be reapplied. Patient underwent arteriograms w ith SEED SERVICE ADVISOR of his posterior tibial artery yesterday. Dr. Ervin performed this. His distal peroneal ar félix is occluded. His anterior tibial artery is occluded. Tibial peroneal has multiple stenoses, b ut SEED SERVICE ADVISOR performed. This is single vessel runoff to the foot. The patient has small vessel disease an d there is nothing that probably can be done beyond this initial arteriogram, portion of the wound lo oks good today. From a surgical standpoint, the patient could be discharged home with a wound VAC [facility] outpatient [facility] care. Transportation is not difficult for him. He could report to [facility] outpatient, 2-3 times a week for wound VAC. I expect his partial great toe amputation on left heal rapidly. I have emphasized tobacco cessation. [facility] He should keep the heel off his bed to prevent decubitus.
[2017-08-29] MEDS ORDERED: diphenhydrAMINE 25 MG CAP PO PRN (17:59)
[2017-08-29] MEDS: Sulfameth/Trimethoprim DS 800-160mg TAB PO SCH (20:42)
[2017-08-29 20:43] LABS: Vancomycin, Trough 9.3 ug/mL
[2017-08-29] MEDS: Insulin Regular 300 UNITS/3 ML VIAL SC PRN (20:43)
[2017-08-30] MEDS: traMADol HCl 50 MG TAB PO PRN (03:49)
[2017-08-30] MEDS: Mometasone/Formoterol 120 PUFF INHALER INH SCH (06:59)
--- NOTE | 2017-08-30 07:17 | PDOC.FM ---
- Subjective Subjective: Pt reports doing fine this morning. Says pain is being well controlled. Is resting in bed. Denies any acute events overnight. No other concerns or problems at this time - Objective MAR Reviewed: Yes Vital Signs & Weight: Vital Signs (12 hours) Temp Pulse Resp BP Pulse Ox 08/30/17 06:57 67 16 95 08/30/17 04:10 95 08/30/17 03:52 97.9 F 77 18 109/72 96 08/30/17 00:08 66 18 94 L 08/29/17 23:48 98.6 F 78 16 156/89 H 94 L 08/29/17 20:08 98.4 F 93 17 128/80 94 L Weight Admit Weight 117.163 kg Weight 117.798 kg I&O: 08/29/17 08/30/17 08/31/17 06:59 06:59 06:59 Intake Total 1640 Output Total 1050 Balance 590 Result Diagrams: 08/29/17 07:10 08/29/17 08:01 Radiology Reviewed by me: Yes (No new imaging to be reviewed at this time. ) <Adi Elliott - Last Filed: 08/30/17 07:14> - Objective Vital Signs & Weight: Vital Signs (12 hours) Temp Pulse Resp BP BP Pulse Ox 08/30/17 08:14 135/77 08/30/17 08:00 97.5 F L 60 18 135/77 94 L 08/30/17 06:57 67 16 95 08/30/17 04:10 95 08/30/17 03:52 97.9 F 77 18 109/72 96 08/30/17 00:08 66 18 94 L 08/29/17 23:48 98.6 F 78 16 156/89 H 94 L Weight Admit Weight 117.163 kg Weight 117.798 kg I&O: 08/29/17 08/30/17 08/31/17 06:59 06:59 06:59 Intake Total 1640 Output Total 1050 1100 Balance 590 -1100 Result Diagrams: 08/29/17 07:10 08/29/17 08:01 <Chico Colvin - Last Filed: 08/30/17 11:41> Phys Exam - Physical Examination HEENT: PERRLA, moist MMs, oral pharynx no lesions Neck: no nodes, supple, full ROM Respiratory: no wheezing, no rales, no rhonchi, clear to auscultation bilateral Cardiovascular: RRR, no significant murmur, no rub Gastrointestinal: soft, non-tender, no distention Musculoskeletal: no edema Brown scarred spots noted on his legs Wound site dressed at this time and wound vac in place. No drainage noted Neurological: non-focal, normal sensation Psychiatric: normal affect, A&O x 3 Skin: no rash, normal turgor <KleAdi willingham - Last Filed: 08/30/17 07:14> Dx/Plan (1) Osteomyelitis of ankle or foot Code(s): M86.9 - OSTEOMYELITIS, UNSPECIFIED Status: Acute Plan: -MRI back in October showed Osteomyelitis -Foot Xray concerning for Osteomyelitis -Had purulent drainage on admission -General Surgery- Dr. Huang consulted. Will follow recommendations Post Op Day 3 of amputation of 2nd L. Toe Wound Vac in Place -Cardiovascular Surgery- Dr. Ervin consulted -Post Op Day 3 for arterogram and to help with blood flow for healing to amputation site -Wound Care consulted to help with management -Awaiting approval for home wound vac -Will likely hear back today. -PT/OT consulted and will assess mobility after surgery. Will await reccommendations -WBC decreased today. WNL -IV vanc D/c yesterday. Started on Oral bactrim. Pt afebrile, no chills -Tramadol for pain at this time Once we get home wound vac patient is ready for discharge (2) COPD exacerbation Code(s): J44.1 - CHRONIC OBSTRUCTIVE PULMONARY DISEASE W (ACUTE) EXACERBATION Status: Acute Plan: Mild COPD exacerbation -On Levaquin PO. Will schedule duonebs and have PRN for SOB -No steroids right now as has infection and getting surgery. Do not want to delay healing from surgery. -Not requiring O2 at this time. -No SOB, breathing doing well (3) MELODY (acute kidney injury) Code(s): N17.9 - ACUTE KIDNEY FAILURE, UNSPECIFIED Status: Resolved Plan: MELODY on CKD4 -Resolved a few days ago -Cr improved yesterday -good urine output (4) CHF (congestive heart failure) Code(s): I50.9 - HEART FAILURE, UNSPECIFIED Status: Chronic Plan: No concerns for Fluid overload at this time. No edema, breath sounds clear. PO intake for fluids. Will continue to monitor (5) Diabetes type 2, uncontrolled Code(s): E11.65 - TYPE 2 DIABETES MELLITUS WITH HYPERGLYCEMIA Status: Chronic QualifierTitle: Diabetes mellitus complication status: with circulatory complication Diabetes mellitus complication detail: with other circulatory complications Diabetes mellitus retirement insulin use: without retirement use Qualified Code(s): E11.59 - Type 2 diabetes mellitus with other circulatory complications Plan: Accuchecks Ac/HS -on moderate SSI, Blood glucose still under control -On home metformin -Pt was non compliant with meds at home (6) Hypertension Code(s): I10 - ESSENTIAL (PRIMARY) HYPERTENSION Status: Chronic Plan: -BP becoming more stable Lisinopril dose increased yesterday -Will continue to monitor and tx. <Adi Elliott - Last Filed: 08/30/17 07:14> Attending Addendum - Attending Addendum I personally evaluated the patient and discussed the management with Dr. Elliott. I agree with the History, Examination, Assessment and Plan documented above with any addition or exceptions noted below. Patient continues to do well. Denies pain. He is on Bactrim for treatment of osteo though pathology shows negative infection margins on amputation. He has wound vac in place and we are awaiting approval for that device. Once approved, patient will be discharged home. <Chico Colvin - Last Filed: 08/30/17 11:41>
[2017-08-30] MEDS: Lisinopril 10 MG TAB PO SCH (08:14)
[2017-08-30] MEDS: Sulfameth/Trimethoprim DS 800-160mg TAB PO SCH (08:14)
[2017-08-30] MEDS: Aspirin 325 MG TAB PO SCH (08:15)
[2017-08-30] MEDS: metFORMIN 500 MG TAB PO SCH (08:15)
[2017-08-30] MEDS: Polyethylene Glycol 3350 17 GM Packet PO SCH (08:15)
[2017-08-30] MEDS ORDERED: Nicotine 21 MG PATCH TD SCH ×2 (09:00)
[2017-08-30 12:48] VITALS: BP 161/80; TEMP 97.8
== END 2017-08-30 14:38 | disposition home or self-care (01) | DRG 617 ==
LOC: ERS 04:12 → ERHOLD 06:43 → 2SW 10:32 → OBSVTOIN 11:33 → 2SW 20:57 → SURG B 08-27 15:49
PROVIDERS: ADMIT Emergency Medicine; ATTEND Emergency Medicine
PROC: 0Y6S0Z1 Detachment at Left 2nd Toe, High, Open Approach (ICD-10-PCS; principal; 2017-08-27)
PROC: 047S3ZZ Dilation of Left Posterior Tibial Artery, Percutaneous Approach (ICD-10-PCS; 2017-08-28)
DX: E11.69 Type 2 diabetes mellitus with other specified complication (principal); M86.172 Other acute osteomyelitis, left ankle and foot; N17.9 Acute kidney failure, unspecified; E11.22 Type 2 diabetes mellitus with diabetic chronic kidney disease; E11.51 Type 2 diabetes mellitus with diabetic peripheral angiopathy without gangrene; I13.0 Hypertensive heart and chronic kidney disease with heart failure and stage 1 through stage 4 chronic kidney disease, or unspecified chronic kidney disease; J44.1 Chronic obstructive pulmonary disease with (acute) exacerbation; I50.9 Heart failure, unspecified; N18.4 Chronic kidney disease, stage 4 (severe); E11.65 Type 2 diabetes mellitus with hyperglycemia; Z79.84 Long term (current) use of oral hypoglycemic drugs; E66.9 Obesity, unspecified; Z68.33 Body mass index [BMI] 33.0-33.9, adult; Z72.0 Tobacco use; Z95.1 Presence of aortocoronary bypass graft; Z89.021 Acquired absence of right finger(s); Z89.412 Acquired absence of left great toe; I25.2 Old myocardial infarction; Z86.19 Personal history of other infectious and parasitic diseases; L03.032 Cellulitis of left toe; I25.10 Atherosclerotic heart disease of native coronary artery without angina pectoris; F12.90 Cannabis use, unspecified, uncomplicated; I70.209 Unspecified atherosclerosis of native arteries of extremities, unspecified extremity
CPT/HCPCS: 36415; 36416; 37228; 71010; 76942; 80048; 80053; 80202; 82330; 82553; 82607; 82728; 82747; 82803; 83036; 83540; 83550; 83880; 84484; 85025; 85347; 85652; 87040; 88305; 88311; 93005; 94640; 94760; 96365; 96375; 99152; 99153; 99406; A4216; C1769; C1887; G8978-GP-CJ; G8979-GP-CH; J1644; J1815; J2175; J2250; J2270; J2704; J2930; J3010; J3370; J7050; J7620

== ENCOUNTER 2017-09-01 10:31 | Outpatient (CLI) | payer MEDICARE, MEDICAID ==
[2017-09-01] MEDS ORDERED: Sodium Chloride 0.9% 15 ML NEB ONE (14:52)
== END 2017-09-01 10:32 | disposition home or self-care (01) ==
LOC: WCC 10:31
PROVIDERS: ATTEND Family Medicine
DX: T81.89XD Other complications of procedures, not elsewhere classified, subsequent encounter (principal); S91.109D Unspecified open wound of unspecified toe(s) without damage to nail, subsequent encounter
CPT/HCPCS: 36416; 97605; A4218

== ENCOUNTER 2017-09-03 10:34 | Outpatient (CLI) | payer MEDICARE, OTHER | END 2017-09-03 10:35 | disposition home or self-care (01) | LOC: WCC 10:34 | PROVIDERS: ATTEND Podiatrist Foot & Ankle Surgery | DX: T81.89XD Other complications of procedures, not elsewhere classified, subsequent encounter (principal) | CPT/HCPCS: 97605 ==

== ENCOUNTER 2017-10-05 05:22 | Observation (INO) | payer MEDICARE, MEDICAID ==
[2017-10-05] MEDS ORDERED: Nitroglycerin 0.4 MG TAB (25 Tab Bottle) ONE (05:52)
[2017-10-05] MEDS ORDERED: Nitroglycerin 2% Ointment 1 INCH/1 GM Packet ONE (05:52)
[2017-10-05 06:06] LABS: #Eosinphils 0.2 thou/uL (0.0-0.7); #Lymphocytes 1.2 thou/uL (1.20-3.40); #Monocytes 0.4 thou/uL (0.11-0.59); #Neutrophils 3.3 thou/uL (1.40-6.50); %Basophils 0.8 % (0.0-1.0); %Eosinophils 3.6 % (0.0-10.0); %Lymphocytes 23.9 % (21.0-51.0); %Monocytes 7.3 % (0.0-10.0); %Neutrophils 64.4 % (42.0-75.0); Hemoglobin 12.9 g/dL (14.0-18.0); Mean Corpuscular HGB CONC 33.5 g/dL (32.0-36.0); Mean Corpuscular Hemoglobin 29.3 pg (27.0-31.0); Mean Corpuscular Volume 87.5 fl (80.0-94.0); Mean Platelet Volume 7.7 fL (7.4-10.4); Platelet Count 321 thou/uL (130-400); RBC Distribution Width 12.8 % (11.5-14.5); Red Blood Cell (RBC) Count 4.39 mill/uL (4.70-6.10); White Blood Cell (WBC) Count 5.2 thou/uL (4.8-10.8)
[2017-10-05 06:23] LABS: PTT 30.1 SEC (22.9-36.1); Prothrombin Time 13.4 SEC (12.0-14.7)
[2017-10-05 06:29] LABS: CKMB 4.7 ng/mL (0-6.6); D-Dimer Test Less than 0.27 *mcg/mL (0.27-0.43)
[2017-10-05 06:30] LABS: ALT (SGPT) 19 U/L (8-55); AST (SGOT) 18 U/L (5-34); Alkaline Phosphatase 102 U/L (40-150); Anion Gap 13 mmol/L (10-20); BUN (Urea Nitrogen) 18 mg/dL (8.4-25.7); Bilirubin, Total 0.2 mg/dL (0.2-1.2); Calc. Creatinine Clearance 0 mL/min (70-130); Calcium 9.6 mg/dL (7.8-10.44); Carbon Dioxide 23 mmol/L (23-31); Estimated GFR-MDRD 58; Glucose 290 mg/dL (80-115); Sodium 133 mmol/L (136-145)
[2017-10-05 06:32] LABS: Chloride 101 mmol/L (98-107)
[2017-10-05 07:19] LABS: CK (CPK) 100 U/L (30-200); Lipase 31 U/L (8-78)
[2017-10-05 09:31] LABS: Troponin I 0.038 ng/mL (< 0.028)
--- NOTE | 2017-10-05 10:56 | RAD ---
AP VIEW CHEST: Date: 10/05/17 HISTORY: Pain. FINDINGS: Comparison made to previous exam from 08/26/17. AP view chest demonstrates the lungs to be well aerated. No evidence of active intrathoracic disease seen. No evidence of effusions, pneumonia, or pneumothorax seen. IMPRESSION: Unremarkable AP view of chest. POS: [facility]
[2017-10-05] MEDS ORDERED: Ondansetron HCl/PF 4 MG/2 ML Vial IVP PRN (11:30)
[2017-10-05] MEDS ORDERED: Acetaminophen 325 MG TAB PO PRN (11:30)
[2017-10-05] MEDS ORDERED: Ondansetron ODT 4 MG TAB PO PRN (11:30)
[2017-10-05] MEDS ORDERED: Nitroglycerin 2% Ointment 1 INCH/1 GM Packet TOP PRN (11:30)
--- NOTE | 2017-10-05 12:35 | PDOC.EVN ---
Attending Addendum - Attending Addendum I personally evaluated the patient and discussed the management with Dr. Bergman. I agree with the History, Examination, Assessment and Plan documented in her H& P with any addition or exceptions noted below. Patient with history of CAD and PVD here with chest pain with some indeterminate elevation in troponin. He will be observed on telemetry, serial EKG and troponin monitoring. Will obtain stress testing as last stress test greater than 1 year ago. Nitro as O2 as needed for pain. Expect overnight hospitalization. He has a history of noncompliance with medical therapy.
[2017-10-05 12:38] LABS: Troponin I 0.048 ng/mL (< 0.028)
[2017-10-05] MEDS ORDERED: PROVENTIL INHALER 6.7 G (200 INHALATIONS) INH PRN (13:50)
[2017-10-05 16:09] LABS: Troponin I 0.049 ng/mL (< 0.028)
[2017-10-05] MEDS ORDERED: Dextrose 50% Abboject 50 ML SYRINGE SLOW IVP PRN (16:23)
[2017-10-05] MEDS ORDERED: Dextrose 5% in Water 1,000 ML IV PRN (16:23)
[2017-10-05] MEDS ORDERED: HumaLOG 300 UNITS/3 ML VIAL SC PRN (16:23)
[2017-10-05] MEDS ORDERED: hydrALAZINE 20 MG/ML VIAL SLOW IVP PRN (16:23)
[2017-10-05] MEDS: traMADol HCl 50 MG TAB PO PRN ×2 (16:53→23:12)
[2017-10-05] MEDS: metFORMIN 500 MG TAB PO SCH ×2 (16:53→16:54)
[2017-10-05 19:29] LABS: Troponin I 0.052 ng/mL (< 0.028)
[2017-10-05] MEDS ORDERED: Lisinopril 10 MG TAB PO SCH (20:45)
[2017-10-05] MEDS: Nicotine 14 MG PATCH TD SCH (20:52)
[2017-10-05] MEDS: Mometasone/Formoterol 120 PUFF INHALER INH SCH (21:03)
--- NOTE | 2017-10-05 21:15 | HP-2 ---
DATE OF ADMISSION: 10/05/2017 RESIDENT: Martínez Bergman M.D. DISCHARGE ATTENDING PHYSICIAN: Chico Colvin M.D. PRIMARY CARE PHYSICIAN: Mike Llamas MD CODE STATUS: DNR. CHIEF COMPLAINT: Chest pain. HISTORY OF PRESENT ILLNESS: This is a 66-year-old male with past medical history as below, who presents with chest pain. The patient states that he first were feeling poorly around 9:00 p.m. last night. The patient is an extremely difficult historian, hard to understand, but I was able to make out that he started having left-sided chest pain, radiating to the left arm and back of his neck , that was constant, 5/10, pressure-like, associated with diaphoresis, nausea, shortness of breath, a nd racing heart. Chest pain also worsened with any type of exertion. The patient had a fall around 2-3 a.m. this morning without any mention of head trauma and was unable to get up and back in the bed , so EMS was called who then transported him to the hospital. In the ER, the patient received 1 inch , nitroglycerin topical, 0.4 mg of nitroglycerin x3 and a full strength aspirin. PAST MEDICAL HISTORY: 1. Coronary artery disease, status post 3-vessel CABG. 2. Hypertension. 3. Type 2 non-insulin dependent diabetes mellitus. 4. COPD with persistent tobacco abuse. 5. Hyperlipidemia. 6. Evidence of diastolic and mild systolic dysfunction on echo from 04/2016. 7. History of osteomyelitis, left second toe, and MRSA colonization. PAST SURGICAL HISTORY: 1. Left wrist surgery. 2. Three-vessel CABG. 3. Amputation, left second toe. ALLERGIES: No known drug allergies. MEDICATIONS: 1. Gabapentin 300 mg 3 times daily. 2. Lisinopril 20 mg daily. 3. Clonidine 0.1 mg at bedtime. 4. Aspirin 81 mg daily. 5. Glimepiride 2 mg twice daily with food. 6. Ibuprofen 200 mg 3 times daily as needed. FAMILY HISTORY: Significant for father with coronary artery disease. SOCIAL HISTORY: Patient continues to smoke 1 pack per day and has smoked for the past 50 years. Den ies any alcohol use. He uses marijuana recreationally. REVIEW OF SYSTEMS: Ten point review of systems including general, eyes, ENT, respiratory, CV, GI, , skin, musculoskeletal, and neuro all negative except for those pertinent positives listed above in HPI. PHYSICAL EXAMINATION: VITAL SIGNS: Blood pressure 160/83, pulse 75, respiratory rate 18, temperature 97.9, oxygen saturati on 100% on room air. GENERAL: The patient is alert and oriented x3, morbidly obese, in no acute distress. He is difficul t to understand. HEENT: PERRLA, EOMI. Conjunctivae within normal limits. ENT: Oropharynx clear. Mucosa within nor mal limits. NECK: Supple, no lymphadenopathy, no thyromegaly. CARDIOVASCULAR: Regular rate and rhythm, no murmurs, no gallops. Radial and pedal pulses are equal bilaterally. RESPIRATORY: Normal effort, no retractions, clear to auscultation bilaterally. ABDOMEN: Soft, nontender to palpation. Hypoactive bowel sounds. He had central obesity, gave the a ppearance of a distended abdomen. EXTREMITIES: No clubbing, no cyanosis, 1+ pitting edema to the mid charles. MUSCULOSKELETAL: Structure and tone within normal limits. Full range of motion. He had a left seco nd toe amputation. NEUROLOGIC: No focal deficits. Sensation within normal limits. Cranial nerves II-XII intact. GCS 15. SKIN: Warm, dry. No cyanosis or lesions. PSYCHIATRIC: Appropriate mood and affect. LABORATORY DATA: CBC: White blood cell 5.2, platelets 321. Hemoglobin 12.9, hematocrit 38.4. MCV was 87.5. CMP: Sodium 133, potassium 4, chloride 101, bicarbonate 23, BUN 18, creatinine 1.25 with a GFR of 58, glucose 290. His calcium was 7, total protein 9.6, albumin 4, total bilirubin 0.2. AST 18, ALT 19, alkaline phosphatase 102. Coags within normal limits. D-dimer less than 0.27. CK was 100, CK-MB 4.7, initial troponin was 0.020 and that trended to 0.038 and on the next check lipase 31. BNP was 144.7. EKG showed normal sinus rhythm, evidence of old inferior infarct, possible LVH. Chest x-ray was unre markable. ASSESSMENT AND PLAN: This is a 66-year-old male with: 1. Chest pain, rule out acute coronary syndrome. Troponins trending x3, currently up trending, we w ill consult Cardiology given the typical chest pain story and patient's significant cardiac history. We will delay stress test if troponins continue to increase. HEART score of 4. Hold beta argelia a nd n.p.o. prior to stress. 2. Coronary artery disease, status post 3-vessel coronary artery bypass graft. Continue aspirin, AC E inhibitor, statin. Recheck fasting lipid panel. Otherwise plan as above. 3. Chronic obstructive pulmonary disease. No evidence of acute exacerbation. The patient is not on any nebulizers at home. We will offer p.r.n. during stay. 4. Type 2 diabetes mellitus. Continue glimepiride while patient is eating, but hold if n.p.o. prior to stress. We will check an A1c if not recently done. 5. Hypertension. Continue home medications. The patient is not on beta argelia, at baseline. 6. History of osteomyelitis. 7. Chronic kidney disease 3, stable at baseline. Continue to monitor. 8. Systolic, diastolic congestive heart failure, mild lower extremity edema on exam. The BNP at [facility]. No sign of acute exacerbation currently. We will go ahead and repeat echo to make sure that no interval worsening. 9. Chronic normocytic anemia. Iron studies, B12 and folate, all checked just one month ago 08/2017 were normal, likely due to chronic disease, at baseline. Hemoglobin at baseline. DISPOSITION AND LENGTH OF HOSPITAL STAY: Anticipate less than 2 midnights. Symptomatic medication will be provided. History and physical exam as well as management discussed with attending Dr. Chico Colvin.
[2017-10-05 22:22] LABS: Troponin I 0.058 ng/mL (< 0.028)
[2017-10-06 01:36] LABS: Troponin I 0.036 ng/mL (< 0.028)
[2017-10-06 04:52] LABS: Anion Gap 11 mmol/L (10-20); BUN (Urea Nitrogen) 14 mg/dL (8.4-25.7); Calc. Creatinine Clearance 115 mL/min (70-130); Calcium 9.1 mg/dL (7.8-10.44); Carbon Dioxide 25 mmol/L (23-31); Cardiac Risk 5.2 (Less than 4.5); Chloride 102 mmol/L (98-107); Cholesterol 176 mg/dl (< 200 Desired); Estimated GFR-MDRD 72; Glucose 160 mg/dL (80-115); HDL Cholesterol 34 mg/dL (>60 Neg Risk); LDL Cholesterol, Calculated 99 mg/dL; Potassium 3.9 mmol/L (3.5-5.1); Sodium 134 mmol/L (136-145); Triglycerides 216 mg/dL (Less than 150)
--- NOTE | 2017-10-06 06:34 | PDOC.FM ---
- Subjective Subjective: Pt reports chest pain feeling a lot better. Says he came in with chest tightness and pain. Reports having nasal congestion and pressure. Denies any fevers or chills. Denies any acute events overnight. Reports having some pain and ulcer on his R. big toe. Says its starting to be like his other toe which he had cut off at previous hospitilization. Also reports irritation, burning and itching on his arms. - Objective MAR Reviewed: Yes Vital Signs & Weight: Vital Signs (12 hours) Temp Pulse Resp BP Pulse Ox 10/06/17 03:28 97.8 F 63 18 151/70 H 100 10/05/17 23:05 97.5 F L 72 20 152/80 H 100 10/05/17 21:03 73 18 95 10/05/17 20:51 97.2 F L 83 22 H 10/05/17 19:55 97.2 F L 83 22 H 188/91 H 100 Weight Weight 115.167 kg I&O: 10/04/17 10/05/17 10/06/17 06:59 06:59 06:59 Intake Total 1150 Output Total 1175 Result Diagrams: 10/05/17 05:52 10/06/17 03:49 Radiology Reviewed by me: Yes Radiology: CxRAY: Unremarkable CXR <Adi Elliott - Last Filed: 10/06/17 06:38> - Objective Vital Signs & Weight: Vital Signs (12 hours) Temp Pulse Resp BP BP Pulse Ox 10/06/17 08:48 160/83 H 10/06/17 07:50 97.4 F L 70 18 160/83 H 100 10/06/17 07:10 71 18 93 L 10/06/17 03:28 97.8 F 63 18 151/70 H 100 10/05/17 23:05 97.5 F L 72 20 152/80 H 100 Weight Weight 115.167 kg I&O: 10/05/17 10/06/17 10/07/17 06:59 06:59 06:59 Intake Total 1150 Output Total 1175 Result Diagrams: 10/05/17 05:52 10/06/17 03:49 <Chico Colvin - Last Filed: 10/06/17 09:58> Phys Exam - Physical Examination Constitutional: NAD HEENT: moist MMs, oral pharynx no lesions Neck: no nodes, no JVD, supple, full ROM Respiratory: no wheezing, no rales, no rhonchi, clear to auscultation bilateral Cardiovascular: RRR, no significant murmur, no rub Gastrointestinal: soft, non-tender, positive bowel sounds Umbilical hernia noted. Partially reducible. Not red and not tender Musculoskeletal: no edema, pulses present Has superficial wound ulcer on top of big toe Neurological: non-focal, normal sensation, moves all 4 limbs Lymphatic: no nodes Psychiatric: normal affect, A&O x 3 Deviation from normal: Looks like vitiligo in his arms. Also looks like AK on his arm -: Very dry irritated skin <Adi Elliott - Last Filed: 10/06/17 06:38> Dx/Plan (1) Chest pain Code(s): R07.9 - CHEST PAIN, UNSPECIFIED Status: Acute (2) Diabetic foot infection Code(s): E11.69 - TYPE 2 DIABETES MELLITUS WITH OTHER SPECIFIED COMPLICATION; L08.9 - LOCAL INFECTION OF THE SKIN AND SUBCUTANEOUS TISSUE, UNSP Status: Acute (3) CAD (coronary artery disease) Code(s): I25.10 - ATHSCL HEART DISEASE OF [facility] CORONARY ARTERY W/O ANG PCTRS Status: Chronic (4) CHF (congestive heart failure) Code(s): I50.9 - HEART FAILURE, UNSPECIFIED Status: Chronic (5) COPD (chronic obstructive pulmonary disease) Status: Chronic QualifierTitle: COPD type: emphysema (6) Diabetes type 2, uncontrolled Code(s): E11.65 - TYPE 2 DIABETES MELLITUS WITH HYPERGLYCEMIA Status: Chronic QualifierTitle: Diabetes mellitus complication status: with circulatory complication Diabetes mellitus complication detail: with other circulatory complications Diabetes mellitus exterminator insulin use: without exterminator use Qualified Code(s): E11.59 - Type 2 diabetes mellitus with other circulatory complications (7) Hx of CABG Status: Chronic (8) Hypertension Code(s): I10 - ESSENTIAL (PRIMARY) HYPERTENSION Status: Chronic - Plan Plan: Chest pain -having chest tightness and chest pain. Denies radiation anywhere. -Troponins trended in indeterminate range and have trended down this AM -Stress test pending today. -Cardiology consulted-Dr. Goldsmith Will await recs CAD s/p 3 vessel cabg -Continue home medications -FLP stable. DMII -continue home meds. Sugars stable will add insulin if sugars increase above 200 COPD -No sign of excacerbation. Denies SOB. No requiring O2 -Duonebs PRN HTN -Bp a little elevated. Only on Lisinopril. May consider adding second medication at this time mixed CHF -no sign of acute excacerbation or fluid overload. -Will repeat Echo at this time as it has been over a year. CKD3 -NPO now for above plan. Tolerating PO. Will continue to monitor R. toe ulcer -Dressed on exam today. Wound care consulted and following. -No concern for systemic or osteomyelitis at this time. Will continue to monitor. May need to refer to wound care clinic for outpatient tx. <Adi Elliott - Last Filed: 10/06/17 06:38> Attending Addendum - Attending Addendum I personally evaluated the patient and discussed the management with Dr. Elliott. I agree with the History, Examination, Assessment and Plan documented above with any addition or exceptions noted below. Patient reports no further chest pains this mornings, trops have decreased. No evidence on EKG of ischemia. Stress test today and will discuss with cardiology prior to discharge. Patient may also be having mild COPD exacerbation, will add steroid course. <Chico Colvin - Last Filed: 10/06/17 09:58>
[2017-10-06] MEDS: Mometasone/Formoterol 120 PUFF INHALER INH SCH ×2 (07:10→19:07)
[2017-10-06] MEDS: traMADol HCl 50 MG TAB PO PRN ×3 (08:48→22:13)
[2017-10-06] MEDS: Aspirin 81 mg Enteric Coated Tablet PO SCH (08:48)
[2017-10-06] MEDS: metFORMIN 500 MG TAB PO SCH ×2 (08:48→17:01)
[2017-10-06] MEDS: guaiFENesin/DM ER PO SCH ×2 (08:48→20:36)
[2017-10-06] MEDS: Enoxaparin Sodium 40 MG/0.4 ML SYRINGE SC SCH (08:55)
[2017-10-06] MEDS ORDERED: Lisinopril 10 MG TAB PO SCH (09:00)
[2017-10-06] MEDS: Nicotine 14 MG PATCH TD SCH (15:25)
[2017-10-06] MEDS ORDERED: Regadenoson 0.4 MG/5 ML SYRINGE ONE (16:25)
[2017-10-06] MEDS: Lisinopril 20 MG TAB PO SCH (20:37)
[2017-10-06] MEDS ORDERED: Atorvastatin Calcium 20 MG TAB PO SCH (21:00)
--- NOTE | 2017-10-06 22:29 | CON ---
DATE OF CONSULTATION: 10/06/2017 HISTORY OF PRESENT ILLNESS: Ankush Carmichael is a 66-year-old white male who 4 years ago was admitted to the hospital in [place] after a myocardial infarction. He then underwent CABG x3. One year later, he developed a sternal infection with staph, although it is uncertain if this was MRSA. He had to go for debridement and his sternal wires were removed. He was admitted here previously with COPD exacerbation, but continued to smoke during that hospitalization. 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 He was admitted in 04/2016 with chest discomfort. Cardiac enzymes were unremarkable. He underwent Cardiolite testing, which revealed no definite evidence of ischemia. His ejection fraction was 36% with global hypokinesis. Echocardiogram during that admission revealed ejection fraction of 45-50% with aortic valvular fibrosis, evidence of diastolic dysfunction, left atrial enlargement, mitral annular calcification, mild mitral regurgitation, and mild tricuspid regurgitation. Since then he has been admitted with COPD exacerbation in 10/2016. He now is admitted with central chest discomfort that lasted approximately 3 hours continuously. The pain was definitely worse with deep breath or with coughing. He continues to smoke 4-5 cigarettes per day. He does admit to increased coughing recently with his COPD. 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 OPERATIONS: CABG and apparent wound debridement for sternal wound infection one year later, tonsillectomy, right finger surgery, left wrist surgery, and amputation of the left second toe. MEDICATIONS: At home include albuterol 2 puffs q.6 hours p.r.n., Symbicort 2 puffs b.i.d., lisinopril 10 mg daily, metformin 500 mg b.i.d., Bactrim 1 b.i.d. , Ultram 50 mg q.6 h. p.r.n. He has been on atorvastatin 20 mg in the past, but it not listed in the current medications. ALLERGIES: None. SOCIAL HISTORY: He continues to smoke for 5-6 cigarettes per day. He does not drink. He has had positive urines for amphetamines and methamphetamines in the past. REVIEW OF SYSTEMS: Twelve-point review of systems is otherwise unremarkable. PHYSICAL EXAMINATION: VITAL SIGNS: 154/75, pulse 63. HEENT: PERRL. NECK: Supple. CHEST: Clear. CARDIAC: S1 and S2 are normal without any S3, S4 or murmurs. ABDOMEN: Normal bowel sounds without tenderness or organomegaly. EXTREMITIES: Revealed no clubbing, cyanosis or edema. NEUROLOGIC: Grossly intact. SKIN: Warm and dry. MUSCULOSKELETAL: Revealed palpable chest tenderness that seems to reproduce all of his pain. LABORATORY DATA: EKG revealed normal sinus rhythm with inferior infarction. Troponin I is 0.058. CK-MB is normal. Sodium 134, potassium 3.9, chloride 102 , carbon dioxide 25, BUN 14, creatinine 1.04. Cholesterol 176, triglycerides 216, HDL 34, LDL 99. Hemoglobin 12.9, hematocrit 38.4, white count 5200, platelets 321,000. INR 1.0. IMPRESSION: 1. Atypical chest discomfort with 3 hours of continuous pain which is pleuritic in nature with minimally abnormal cardiac enzymes. 2. Chronic obstructive pulmonary disease exacerbation. 3. Status post coronary artery bypass graft. 4. Hypertension. 5. Hypercholesterolemia, untreated. 6. The patient continues to smoke. PLAN: The patient will be restarted on atorvastatin 20 mg daily. He has a 2- day Cardiolite protocol and further determination for evaluation be determined by the results of that scan. Also, urine drug screen will be sent. [facility]
[2017-10-07] MEDS: traMADol HCl 50 MG TAB PO PRN (04:52)
[2017-10-07 05:39] LABS: Amphetamine Detected (NotDetected); Cocaine Metabolite Screen Not Detected (NotDetected); Medtox Reader # READER 1; Methamphetamine Detected (NotDetected); Opiate Screen Not Detected (NotDetected); Phencyclidine (PCP) Not Detected (NotDetected); THC/Cannabinoid Screen Not Detected (NotDetected)
[2017-10-07 05:40] LABS: Barbiturates Screen Not Detected (NotDetected); Benzodiazepine Screen Not Detected (NotDetected); Medtox Control Line Valid? VALID (VALID); Methadone Not Detected (NotDetected); Oxycodone Screen Not Detected (NotDetected); Tricyclic Screen Not Detected (NotDetected)
--- NOTE | 2017-10-07 07:48 | PDOC.FM ---
- Subjective Subjective: Pt reports doing much better this morning. Denies chest pain at this time. Denies SOB. Says he is still having some nasal congestion but reports it doing better. Denies any acute events overnight. Denies any other concerns or problems at this time - Objective Vital Signs & Weight: Vital Signs (12 hours) Temp Pulse Resp BP BP Pulse Ox 10/07/17 04:40 97.5 F L 62 22 H 145/69 H 92 L 10/06/17 20:37 148/71 H 10/06/17 20:25 97.4 F L 62 20 148/71 H 94 L Weight Weight 115.167 kg I&O: 10/06/17 10/07/17 10/08/17 06:59 06:59 06:59 Intake Total 1150 780 Output Total 1175 400 Balance -25 380 Result Diagrams: 10/05/17 05:52 10/06/17 03:49 Radiology Reviewed by me: Yes Radiology: Echocardiogram: E/A flow reversed suggestive of diastolic dysfunction. EF 40-45% . LA moderately dilated. Shows a mixed heart failure picture <Adi Elliott - Last Filed: 10/07/17 07:44> - Objective Vital Signs & Weight: Vital Signs (12 hours) Temp Pulse Resp BP Pulse Ox 10/07/17 08:09 97.2 F L 67 20 10/07/17 07:28 97.2 F L 67 20 129/81 94 L 10/07/17 04:40 97.5 F L 62 22 H 145/69 H 92 L Weight Weight 115.167 kg I&O: 10/06/17 10/07/17 10/08/17 06:59 06:59 06:59 Intake Total 1150 780 Output Total 1175 400 Balance -25 380 Result Diagrams: 10/05/17 05:52 10/06/17 03:49 <Chico Colvin - Last Filed: 10/07/17 10:41> Phys Exam - Physical Examination HEENT: moist MMs, oral pharynx no lesions Neck: no nodes, no JVD, supple, full ROM Respiratory: no wheezing, no rhonchi, clear to auscultation bilateral rales noted on auscultation Cardiovascular: RRR, no significant murmur, no rub Gastrointestinal: soft, non-tender, no distention, positive bowel sounds Musculoskeletal: no edema, pulses present Neurological: non-focal, normal sensation, moves all 4 limbs Psychiatric: normal affect, A&O x 3 Deviation from normal: vitiligo noted on arms. -: R. toe dressed at this time no drainage noted. <Adi Elliott - Last Filed: 10/07/17 07:44> Dx/Plan (1) Chest pain Code(s): R07.9 - CHEST PAIN, UNSPECIFIED Status: Acute (2) Diabetic foot infection Code(s): E11.69 - TYPE 2 DIABETES MELLITUS WITH OTHER SPECIFIED COMPLICATION; L08.9 - LOCAL INFECTION OF THE SKIN AND SUBCUTANEOUS TISSUE, UNSP Status: Acute (3) CAD (coronary artery disease) Code(s): I25.10 - ATHSCL HEART DISEASE OF [place] CORONARY ARTERY W/O ANG PCTRS Status: Chronic (4) CHF (congestive heart failure) Code(s): I50.9 - HEART FAILURE, UNSPECIFIED Status: Chronic (5) COPD (chronic obstructive pulmonary disease) Status: Chronic QualifierTitle: COPD type: emphysema (6) Diabetes type 2, uncontrolled Code(s): E11.65 - TYPE 2 DIABETES MELLITUS WITH HYPERGLYCEMIA Status: Chronic QualifierTitle: Diabetes mellitus complication status: with circulatory complication Diabetes mellitus complication detail: with other circulatory complications Diabetes mellitus superintendent terminal insulin use: without snf use Qualified Code(s): E11.59 - Type 2 diabetes mellitus with other circulatory complications (7) Hx of CABG Status: Chronic (8) Hypertension Code(s): I10 - ESSENTIAL (PRIMARY) HYPERTENSION Status: Chronic (9) Drug abuse Code(s): F19.10 - OTHER PSYCHOACTIVE SUBSTANCE ABUSE, UNCOMPLICATED Status: Acute - Plan Plan: Chest pain -had chest tightness and chest pain on admission. Denies radiation anywhere. -Troponins trended in indeterminate range and have since trended down -Stress test pending today. -Chest pain pleuritic in nature. Likely due to viral URI. -Cardiology consulted-Dr. Goldsmith -Will follow recs -Stable for d/c if stress test negative CAD s/p 3 vessel cabg -Continue home medications -FLP stable. Started on Statin DMII -continue home meds. Sugars stable will add insulin if sugars increase above 200 COPD -Possibly mild excacerbation noted by cardiology. May give short course steroids upon discharge. Denies SOB. No requiring O2 -Duonebs PRN HTN -Bp a little elevated. Only on Lisinopril. May consider adding second medication at this time mixed CHF -no sign of acute excacerbation or fluid overload. EF 40-45%. Shows diastolic dysfunction on repeat echo as well -On Emile. BP still a little elevated. Will likely add beta argelia at this time CKD3 -NPO now for above plan. Tolerating PO. Will continue to monitor R. toe ulcer -Dressed on exam today. Wound care consulted and following. -No concern for systemic or osteomyelitis at this time. Will continue to monitor. May need to refer to wound care clinic for outpatient tx. Drug Abuse -Meth and amphetamine positive on UDS. -Likely helped excacerbate chest pain sx's -Counseled on risks and quitting. <Adi Elliott - Last Filed: 10/07/17 07:44> Attending Addendum - Attending Addendum I personally evaluated the patient and discussed the management with Dr. Elliott. I agree with the History, Examination, Assessment and Plan documented above with any addition or exceptions noted below. Patient doing well, has had no recurrence of pain. Awaiting final read on stress testing. Cardiology consulted, await their final recs but hopeful discharge later today. Meth positive, could have contributed to his symptoms. <Chico Colvin - Last Filed: 10/07/17 10:41>
[2017-10-07] MEDS: Aspirin 81 mg Enteric Coated Tablet PO SCH (08:09)
[2017-10-07] MEDS: Lisinopril 20 MG TAB PO SCH (08:09)
[2017-10-07] MEDS: guaiFENesin/DM ER PO SCH (08:09)
[2017-10-07] MEDS: metFORMIN 500 MG TAB PO SCH (08:09)
[2017-10-07] MEDS: Enoxaparin Sodium 40 MG/0.4 ML SYRINGE SC SCH (08:09)
--- NOTE | 2017-10-07 10:27 | NM ---
NUCLEAR MEDICINE CARDIAC PERFUSION EXAMINATION WITH EJECTION FRACTION: History: 66-year-old male with chest pain. Comparison: 04-16-16 Technique: A two-day nuclear medicine cardiac perfusion examination was performed. Rest images were obtained usi ng 27 mCi Technetium 99M Sestamibi. Stress images were obtained using 27 mCi Technetium 99M Sestamibi and Gisell scan. FINDINGS: Tomographic imaging show no fixed or reversible perfusion defects. Gated images shows global hypokine sis with ejection fraction of 34%. IMPRESSION: No evidence of ischemia. Hypokinesis and decreased ejection fraction. POS: OLIVIA
--- NOTE | 2017-10-07 10:31 | EKG ---
Test Reason : Blood Pressure : / mmHG Vent. Rate : 060 BPM Atrial Rate : 060 BPM P-R Int : 144 ms QRS Dur : 094 ms QT Int : 456 ms P-R-T Axes : 060 -05 086 degrees QTc Int : 456 ms Normal sinus rhythm Inferior infarct (cited on or before 30-NOV-2012) Abnormal ECG When compared with ECG of 05-OCT-2017 05:34, (Unconfirmed) Inverted T waves have replaced nonspecific T wave abnormality in Lateral leads Confirmed by DR. Eder MASTERSON ([id number]) on 10/07/2017 10:31:32 AM Referred By: RIA Confirmed By:DR. Eder MASTERSON
[2017-10-07] MEDS: Mometasone/Formoterol 120 PUFF INHALER INH SCH (10:39)
[2017-10-07 11:29] VITALS: BP 169/77; TEMP 97.6
[2017-10-07] MEDS: Nicotine 14 MG PATCH TD SCH (11:49)
[2017-10-07 13:45] VITALS: BMI 32.5
[2017-10-07] MEDS ORDERED: Carvedilol 3.125 MG TAB PO SCH (17:00)
[2017-10-07] MEDS ORDERED: Carvedilol 6.25 MG TAB PO SCH (17:00)
--- NOTE | 2017-10-08 03:37 | DIS-2 ---
DATE OF ADMISSION: 10/05/2017 DATE OF DISCHARGE: 10/07/2017 ADMITTING ATTENDING: Chico Colvin MD DISCHARGE ATTENDING: Chico Colvin MD RESIDENT: Adi Elliott MD, PGY1. PROCEDURES: None. CONSULTS: On 10/06/[address] Olegario Vergara with Cardiology. IMAGING DATA: 1. Got a chest x-ray on 10/05/2017, which showed unremarkable AP view of the chest. Got an echocard iogram on 10/05/2017, which showed left ventricular size moderately increased, overall left ventricul ar function mildly depressed, EF is 40%-45%, E/A flow reversal noted suggestive of diastolic dysfunct ion, left atrium moderately dilated, mitral annular calcification present, mild mitral regurg present , aortic valve sclerotic, mild tricuspid regurg, and mild pulmonic regurg present. 2. Got a stress test on 10/06/2017, stress test nuclear medicine which showed no evidence of ischemi a, showed hypokinesis and decreased ejection fraction. DIAGNOSES: 1. Atypical chest pain, likely pleuritic chest pain. 2. Possibly mild chronic obstructive pulmonary disease exacerbation. 3. Diabetes mellitus type 2. 4. Hypertension. 5. Mixed congestive heart failure. 6. Chronic kidney disease 3. 7. Right toe wound. 8. History of coronary artery disease, status post 3-vessel coronary artery bypass graft. 9. Drug abuse, methamphetamine positive. DISCHARGE MEDICATIONS: Aspirin 81 mg p.o. daily, atorvastatin 20 mg p.o., carvedilol 6.25 mg p.o., g uanfacine, Mucinex DM 1 tab p.o. q.12 hours 30 tabs, and lisinopril 20 mg once a day. HISTORY OF PRESENT ILLNESS AND BRIEF HOSPITAL COURSE: This is a 66-year-old male that came in on stating he was feeling poorly on the night before, had a left-sided chest pain radiating to t he left arm, back, and neck. Also, reported having some shortness of breath. Pain was worsened with any type of exertion. When he came in, his troponins were elevated at 0.036. The EKG did not show any new changes, showed normal sinus rhythm troponins since they were elevated at 0.036, we con sulted Cardiology, Dr. Melvin, and ordered stress test for now. We got a fasting lipid panel which showed his LDL at 99, HDL at 34, cholesterol 176. We will trend his troponins throughout the course of the next few days; they would be 0.058, 0.052, 0.049, 0.048, 0.038, 0.02. At that time, they ruth nded down into the normal range. During this time, Dr. Melvin was consulted and recommended the pa bobbi be started on his atorvastatin 20 mg daily and read his stress nuclear test above and was not t oo concerned with it. Recommended that he was okay to be discharged on 10/07/2017. His EF showed an ejection fraction of 40%-45%. At this time, he is only on lisinopril which we had increased to 20 m g daily. His blood pressures were elevated 145/69, 169/77, 154/75, so we increased his lisinopril an d then after we get the echo back which showed above, we also started him on carvedilol and Dr. Khai durham increased it to 6.125 mg daily. Also, during this time Dr. Melvin had found that he had been p ositive for methamphetamines in the past. We ordered a UDS on him as the patient was definitely work ed up on admission having this chest pain and he was positive for amphetamines and meth likely this d rug abuse is what exacerbated some of these symptoms caused him to be worked up and having some of th is pain. He also kind of reported shortness of breath and having some nasal congestion. We did not think he was having a COPD exacerbation. His vital signs were normal. His lungs sounded fairly eulalio r, just some mild rales. We did give him some Mucinex DM for his nasal congestion, which seemed to h elp it improve. I think after coming off the drugs after a few days, he started to feel better and h is pain had resolved. At this time, we will discharge him. DISPOSITION: Stable. DISCHARGE INSTRUCTIONS: 1. Discharge location: Home. 2. Activity: As tolerated and recommend that he not do drugs. 3. Diet: Heart-healthy, diabetic diet. 4. Followup: Will follow up with his primary care physician in 14 days for a hospital followup and will follow up with Dr. Melvin as needed. He is to follow up with his primary care doctor as he wi ll need to have had some changes to his medications.
--- NOTE | 2017-10-14 10:50 | STRESS ---
Acquisition Time: 2017-10-06 11:37:46 Total Exercise Time: 00:01:00 Test Indications: CHEST PAIN Medications: Protocol: LEXISCAN Max HR: 080 BPM 51% of Pred: 155 BPM Max BP: 146/074 mmHG Max Work Load: 1.0 METS RESTING ECG: NORMAL SINUS RHYTHM AT 65 BPM WITH NON-SPECIFIC T WAVE ABNORMALITY SYMPTOMS: DYSPNEA NORMAL BP RESPONSE TO STRESS ECTOPY: NONE ECG STRESS: NO SIGNIFICANT CHANGES INTERPRETATION: AWAIT NUCLEAR IMAGES FOR DEFINITIVE DIAGNOSIS Confirmed by BRENNA ROLLINS (2), map editor MANI ESTEVES ([id number]) on 10/14/2017 10:49:44 AM Referred By: MD Kimo FERNANDEZ Confirmed By:BRENNA ROLLINS
== END 2017-10-07 15:41 | disposition home or self-care (01) ==
LOC: ERS 05:22 → ERHOLD 07:41 → 2SW 13:09
PROVIDERS: ADMIT Student in an Organized Health Care Education/Training Program; ATTEND Student in an Organized Health Care Education/Training Program
DX: R07.89 Other chest pain (principal); E11.22 Type 2 diabetes mellitus with diabetic chronic kidney disease; I13.0 Hypertensive heart and chronic kidney disease with heart failure and stage 1 through stage 4 chronic kidney disease, or unspecified chronic kidney disease; N18.3 Chronic kidney disease, stage 3 (moderate); I50.40 Unspecified combined systolic (congestive) and diastolic (congestive) heart failure; E11.69 Type 2 diabetes mellitus with other specified complication; L08.9 Local infection of the skin and subcutaneous tissue, unspecified; I25.10 Atherosclerotic heart disease of native coronary artery without angina pectoris; F15.10 Other stimulant abuse, uncomplicated; E78.5 Hyperlipidemia, unspecified; F17.210 Nicotine dependence, cigarettes, uncomplicated; D63.1 Anemia in chronic kidney disease; F40.240 Claustrophobia; J44.1 Chronic obstructive pulmonary disease with (acute) exacerbation; Z79.84 Long term (current) use of oral hypoglycemic drugs; Z79.82 Long term (current) use of aspirin; Z79.899 Other long term (current) drug therapy; Z95.1 Presence of aortocoronary bypass graft; Z89.422 Acquired absence of other left toe(s); Z90.89 Acquired absence of other organs; Z98.890 Other specified postprocedural states
CPT/HCPCS: 71010; 78452; 80048; 80053; 80061; 80306; 82550; 82553; 82962 ×3; 83690; 83880; 84484 ×3; 85025; 85379; 85610; 85730; 93005 ×2; 93017; 93306; 94640 ×3; 94664; 94760 ×3; 96372 ×2; 96374; 97139 ×2; 99285; A9500; G0378; 36415; 36416; 93010; J0360; J1650; J2785

== ENCOUNTER 2018-06-29 08:18 | Inpatient (IN) | payer MEDICARE, MEDICAID ==
[2018-06-29] MEDS ORDERED: Ondansetron HCl/PF 4 MG/2 ML Vial ONE (08:43)
[2018-06-29] MEDS ORDERED: Morphine 4 MG/ML VIAL ONE (08:43)
[2018-06-29 09:10] LABS: #Eosinphils 0.2 thou/uL (0.0-0.7); #Lymphocytes 1.5 thou/uL (1.20-3.40); #Monocytes 0.7 thou/uL (0.11-0.59); #Neutrophils 7.6 thou/uL (1.40-6.50); %Basophils 0.3 % (0.0-1.0); %Eosinophils 1.7 % (0.0-10.0); %Lymphocytes 14.7 % (21.0-51.0); %Monocytes 7.3 % (0.0-10.0); %Neutrophils 76.1 % (42.0-75.0); Hemoglobin 12.5 g/dL (14.0-18.0); Mean Corpuscular HGB CONC 33.6 g/dL (32.0-36.0); Mean Corpuscular Hemoglobin 27.9 pg (27.0-31.0); Mean Corpuscular Volume 83.1 fL (78.0-98.0); Mean Platelet Volume 7.8 fL (7.4-10.4); Platelet Count 418 thou/uL (130-400); RBC Distribution Width 12.2 % (11.5-14.5); Red Blood Cell (RBC) Count 4.49 mill/uL (4.70-6.10)
--- NOTE | 2018-06-29 09:22 | RAD ---
RIGHT FOOT 3 VIEWS: Date: 06/29/18 HISTORY: Injury. Sores. COMPARISON: None. FINDINGS: Erosions of the great toe distal phalanx. No acute displaced fracture or malalignment. Moderate size plantar calcaneal spur. Mild vascular calcifications. IMPRESSION: 1. Erosions of the toes and distal phalanx overlying soft tissue ulcer indicative of osteomyelitis. 2. Chronic erosion of the distal phalanx of the second toe, although not definitively acute, may be due to chronic hammertoe deformity. POS: OLIVIA
--- NOTE | 2018-06-29 09:24 | RAD ---
LEFT FOOT 3 VIEWS: Date: 06/29/18 COMPARISON: 08/26/17. HISTORY: Sores to the feet. The patient is diabetic. FINDINGS: Interval amputation of the second digit at the level of the proximal phalanx. Stable amputation of th e first digit. Vascular calcifications are identified. No radiographic evidence of osteomyelitis. Nonspecific hyperdensity at the level of the distal ankle. IMPRESSION: Postsurgical changes as above. No radiographic evidence of osteomyelitis. POS: OLIVIA
[2018-06-29 09:32] LABS: ALT (SGPT) 15 U/L (8-55); AST (SGOT) 17 U/L (5-34); Albumin 4.1 g/dL (3.4-4.8); Alkaline Phosphatase 107 U/L (40-150); Anion Gap 15 mmol/L (10-20); BUN (Urea Nitrogen) 15 mg/dL (8.4-25.7); Bilirubin, Total 0.6 mg/dL (0.2-1.2); Calc. Creatinine Clearance 0 mL/min (70-130); Calcium 9.7 mg/dL (7.8-10.44); Carbon Dioxide 25 mmol/L (23-31); Chloride 98 mmol/L (98-107); Estimated GFR-MDRD 49; Globulin 3.4 g/dL (2.4-3.5); Glucose 152 mg/dL (80-115); Potassium 4.6 mmol/L (3.5-5.1); Protein, Total 7.5 g/dL (5.8-8.1); Sodium 133 mmol/L (136-145)
--- NOTE | 2018-06-29 12:37 | HP ---
CHIEF COMPLAINT: Right great toe pain. HISTORY OF PRESENT ILLNESS: Mr. Ankush Carmichael is a pleasant 67-year-old white male patient with a long history of type 2 diabetes. He also has a long history of chronic foot ulcers on both feet, but particularly his right great toe. We saw him in the clinic last week for a routine checkup. At mirta t time, he had no signs of infection and was in no pain; however, he stated that beginning Friday, he developed a great deal of pain, particularly in his right great toe precipitating a trip to the ER early this morning. X-rays at that time revealed a possible osteomyelitis of the right great toe. He has therefore been admitted for IV therapy and the surgical and Wound Care evaluation. PHYSICAL EXAMINATION: GENERAL: He is awake and alert. He is in no distress other than the pain in his feet and toes. VITAL SIGNS: Vital signs have not yet been recorded. LABORATORY DATA: CBC: White count is 10,000, hemoglobin 12.5, hematocrit 37.3, platelets 418,000. Sed rate is elevated at 71. Chemistry: Sodium 133, potassium 4.6, chloride 98, bicarbonate 25, crea tinine 1.43. C-reactive protein also elevated at 7.90. HEENT: Clear. NECK: Supple. CARDIAC: Heart rhythm regular, no gallop or murmur noted. LUNGS: Clear, without rales or wheezes. ABDOMEN: Flat, benign and soft. EXTREMITIES: Particular attention to his right great toe, there is avulsions just over the nail bed of the right great toe with possibly early exposed bone of the distal phalanx. No signs of purulence . ASSESSMENT: Osteomyelitis by x-ray. PLAN: We will admit the patient, begin broad spectrum antibiotics. Consult Dr. Ragland. May consider MRI. Continue treating diabetes.
[2018-06-29 12:52] VITALS: BMI 34.7
--- NOTE | 2018-06-29 13:27 | PDOC.FPRHP ---
- History of Present Illness Chief Complaint: bilateral foot pain History of Present Illness: 67 yo M with PMH of HTN, HLD, T2DM, CABG, osteomylitis, MRSA, and COPD who presents for worsening 9/10 bilateral foot pain. He has had a previous L great toe and second toe amputation. Pt states his feet started becoming really painful about a month ago, and are so painful now that he can barely walk. Pt states that tramadol used to help the pain but is no longer helping. Patient states he "removed critters from my toes, look like worms." - Allergies/Adverse Reactions Allergies Allergy/AdvReac Type Severity Reaction Status Date / Time No Known Allergies Allergy Verified 01/05/16 19:38 - Home Medications Medication Instructions Recorded Confirmed Type traMADol HCl [Ultram] 50 mg PO Q6H PRN #120 tab 08/30/17 06/29/18 Rx Carvedilol [Coreg] 6.25 mg PO BID-WM #60 tab 10/07/17 06/29/18 Rx Lisinopril 20 mg PO DAILY #30 tablet 10/07/17 06/29/18 Rx Atorvastatin Calcium [Lipitor] 40 mg PO HS 06/29/18 06/29/18 History Ibuprofen 800 mg PO TID 06/29/18 06/29/18 History Ventolin HFA Inhaler 2 puff INH Q4HR 06/29/18 06/29/18 History hydrOXYzine HCl [hydrOZYzine HCl] 25 mg PO HS PRN 06/29/18 06/29/18 History metFORMIN [Glucophage] 1,000 mg PO BID-WM 06/29/18 06/29/18 History - History PMHx: HLD, CAD s/p 3 vessel CABG, HTN, T2DM (non insulin dependent), mixed systolic and diastolic dysfunction on echo, Osteo of left 2nd toe, hx of MRSA, COPD, CKD 3, Hx of CVA PSHx: Left wrist surgery, 3-vessel CABG, amputation L 2nd toe and partial great toe FHx: CAD - father, at 85 yrs old; Denied fam hx of cancer Social: 50.5 PY history, smoked 1/2 ppd for past year, Denied alcohol, remote hx marijuana use - Review of Systems General: reports: weight/appetite/sleep changes (decreased appetite, increased weight 20 lbs in last 3-4 months). denies: fever/chills Eyes: reports: vision changes. denies: eye pain ENT: denies: nasal congestion, rhinorrhea Respiratory: reports: congestion, shortness of breath, exercise intolerance. denies: cough Cardiovascular: denies: chest pain, palpitation Gastrointestinal: denies: nausea, vomiting, diarrhea, constipation, abdominal pain, GI bleeding Genitourinary: denies: incontinence, dysuria, polyuria, discharge Skin: reports: rashes (hypopigmented patches on bilateral arms). denies: itching Musculoskeletal: reports: pain (neck), stiffness (all over) Neurological: reports: numbness (feet), weakness (generalized) Psychological: denies: anxiety, depression - Vital signs BP: 157/88, P 60, R 20, T 97.7, O2 95% on RA. Wt 122.5 kg - Physical Exam Constitutional: NAD, awake, alert and oriented, well developed HEENT: normocephalic and atraumatic, PERRLA, no scleral icterus, MMM, other ( poor dentition) Neck: supple Heart: RRR, normal S1/S2, no murmurs/rubs/gallops Lungs: CTAB, no wheezing Abdomen: soft, non-tender, bowel sounds present Musculoskeletal: normal structure, normal tone -Neurological: 4/5 strength in bilat upper extremities. Skin: capillary refill <2 seconds, no jaundice, other (Erythema and scabbing with purulent drainage on left 3rd, 4th toe. Erythema and scabbing of Rt first, second, and third toes. Hypopigmented patches on bilateral arms, hyperpigmented patches on bilateral lower legs) Psychiatric: normal mood and affect, intact recent and remote memory FMR H&P: Results - Labs Result Diagrams: 06/29/18 08:50 06/29/18 08:50 Lab results: WBC 10.0 thou/uL (4.8-10.8) 06/29/18 08:50 Hgb 12.5 g/dL (14.0-18.0) L 06/29/18 08:50 Hct 37.3 % (42.0-52.0) L 06/29/18 08:50 MCV 83.1 fL (78.0-98.0) 06/29/18 08:50 Plt Count 418 thou/uL (130-400) H 06/29/18 08:50 Neutrophils % 76.1 % (42.0-75.0) H 06/29/18 08:50 ESR Westergren 71 mm/hr (Less than 20) 06/29/18 08:50 Sodium 133 mmol/L (136-145) L 06/29/18 08:50 Potassium 4.6 mmol/L (3.5-5.1) 06/29/18 08:50 Chloride 98 mmol/L (98-107) 06/29/18 08:50 Carbon Dioxide 25 mmol/L (23-31) 06/29/18 08:50 BUN 15 mg/dL (8.4-25.7) 06/29/18 08:50 Creatinine 1.43 mg/dL (0.6-1.3) H 06/29/18 08:50 Glucose 152 mg/dL (80-115) H 06/29/18 08:50 Calcium 9.7 mg/dL (7.8-10.44) 06/29/18 08:50 Total Bilirubin 0.6 mg/dL (0.2-1.2) 06/29/18 08:50 AST 17 U/L (5-34) 06/29/18 08:50 ALT 15 U/L (8-55) 06/29/18 08:50 Alkaline Phosphatase 107 U/L (40-150) 06/29/18 08:50 C-Reactive Protein 7.90 mg/dL (= or < 0.5) H 06/29/18 08:50 Serum Total Protein 7.5 g/dL (5.8-8.1) 06/29/18 08:50 Albumin 4.1 g/dL (3.4-4.8) 06/29/18 08:50 FMR H&P: A/P - Problem List (1) Osteomyelitis of ankle or foot Current Visit: No Status: Acute Code(s): M86.9 - OSTEOMYELITIS, UNSPECIFIED (2) MELODY (acute kidney injury) Current Visit: No Status: Acute Code(s): N17.9 - ACUTE KIDNEY FAILURE, UNSPECIFIED (3) Thrombocytosis Current Visit: Yes Status: Acute (4) Drug abuse Current Visit: No Status: Chronic Code(s): F19.10 - OTHER PSYCHOACTIVE SUBSTANCE ABUSE, UNCOMPLICATED (5) Noncompliance Current Visit: No Status: Chronic Code(s): Z91.19 - PATIENT'S NONCOMPLIANCE W OTH MEDICAL TREATMENT AND REGIMEN (6) CAD (coronary artery disease) Current Visit: No Status: Chronic Code(s): I25.10 - ATHSCL HEART DISEASE OF [place] CORONARY ARTERY W/O ANG PCTRS (7) CHF (congestive heart failure) Current Visit: No Status: Chronic Code(s): I50.9 - HEART FAILURE, UNSPECIFIED (8) COPD (chronic obstructive pulmonary disease) Current Visit: No Status: Chronic Qualifiers: COPD type: emphysema (9) Diabetes type 2, uncontrolled Current Visit: No Status: Chronic Code(s): E11.65 - TYPE 2 DIABETES MELLITUS WITH HYPERGLYCEMIA (10) Hx of CABG Current Visit: No Status: Chronic (11) Hyperlipidemia Current Visit: No Status: Chronic Code(s): E78.5 - HYPERLIPIDEMIA, UNSPECIFIED (12) Hypertension Current Visit: No Status: Chronic Code(s): I10 - ESSENTIAL (PRIMARY) HYPERTENSION - Plan 67 yo M with PMH of HTN, HLD, T2DM, CABG, osteomylitis, MRSA, and COPD who presents for osteomyelitis. Osteomyelitis Rt foot -Nonpalpable pulses in BLE, with audible dorsalis pedis pulses on doppler - In ED, dose of Vanc -XR feet: Rt osteomyelitis, L no osteomyelitis -CRP 7.9; ESR on 06/24/18 3.4 -Vanc IV, Vanc trough ordered -Consult general surgery, Dr. Huang -NPO @ midnight -Wound care consult -Vascular studies -Consult ID, Dr. Haynes -Consider MRI for charcot foot Stage 1 MELODY on CKD Stage 3 -Increase of Cr from 1.04 to 1.43 -Fluids LR @ 100 ml/hr Thrombocytosis -most likely acute phase reactant, 2/2 to osteomyelitis T2DM -Continue metformin -06/24 A1C of 9.6 HTN -Continue home coreg and lisinopril HLD -Continue home Atorvastatin COPD -Continue home albuterol Tobacco abuse -Nicotine patch PRN S/P 3-vessel CABG Mixed diastolic and systolic dysfunction on echo Hx of CVA Code status: DNR Diet: CC, HH, NPO @ midnight FMR H&P: Upper Level - Pertinent history 67 yo WM PMH CAD s/p CABG x3 vessel, DM2, HTN, and PVD s/p balloon angioplasty in 2017. Presents with 5-6 month history of worsening lesion on his feet. States his pain acutely worsened today, prompting him to come to the ER for evaluation. States he has noticed some "critters" crawling in his wound. Was seen in clinic on 06/24 and found to have ESR of 34. States his pain has been worsening and has become refractory to tramadol. ER: Morphine 4 mg, Vanc 1g IV, and zofran 8 mg - Pertinent findings Vitals: BP elevated 150s/80s, otherwise WNL GEN: NAD A&Ox4 CV: RRR, no murmur, sternostomy scar Lung: faint wheezes, Extremities: Right foot, digits 1, 2, and 3 open wound with granulation tissue and possible exposed bone, left foot: digits 1, 2, and 5 surgically absent remaining digits have open sores. Dorsalis pedis pulses not palpable but present on doppler. Labs: Cr. 1.43 (above baseline) ESR 71, CRP 7.9 Imaging: Osteomyelitis right great toe. - Plan Date/Time: 06/29/18 1325 I, Paul Sanches MD, have evaluated this patient and agree with findings/plan as outlined by international organizer resident. Pertinent changes/additions are listed here. 1. Acute osteomyelitis: - Continue vanc - wound care - blood cultures pending - general surgery consult - pain control with PO APAP #3 2. MELODY on CKD3 - IV LR at 100 mL/hr - repeat BMP tomorrow 3. DM2 - home meds - SSI - ACHS checks 4. HTN - home meds 5. CAD - increase to high intensity statin - home meds Diet: HH, CC PPx: lovenox CODE: DNR. discussed with patient. Dispo: inpatient, medical, >2 midnights
[2018-06-29] MEDS ORDERED: Ondansetron HCl/PF 4 MG/2 ML Vial IVP PRN (13:42)
[2018-06-29] MEDS ORDERED: Bisacodyl 5 MG TAB PO PRN (13:42)
[2018-06-29] MEDS ORDERED: Zolpidem Tartrate 5 MG TAB PO PRN (13:42)
[2018-06-29] MEDS ORDERED: Acetaminophen 650 MG Suppository PR PRN (13:42)
[2018-06-29] MEDS ORDERED: Acetaminophen 325 MG TAB PO PRN (13:42)
[2018-06-29] MEDS ORDERED: Enoxaparin Sodium 40 MG/0.4 ML SYRINGE SC SCH (13:45)
[2018-06-29] MEDS ORDERED: hydrOXYzine 25 MG TAB PO PRN (13:49)
[2018-06-29] MEDS ORDERED: traMADol HCl 50 MG TAB PO PRN (13:49)
[2018-06-29] MEDS ORDERED: Acetaminophen/Codeine 30-300mg Tablet PO PRN (14:04)
[2018-06-29] MEDS ORDERED: Dextrose 5% in Water 1,000 ML IV PRN (14:05)
[2018-06-29] MEDS ORDERED: HumaLOG 300 UNITS/3 ML VIAL SC PRN ×2 (14:05)
[2018-06-29] MEDS ORDERED: Dextrose 50% Abboject 50 ML SYRINGE SLOW IVP PRN (14:05)
[2018-06-29] MEDS: PROVENTIL INHALER 6.7 G (200 INHALATIONS) INH SCH ×3 (14:12→22:46)
[2018-06-29] MEDS ORDERED: Nicotine 14 MG PATCH TD PRN (14:54)
[2018-06-29] MEDS ORDERED: Nicotine 14 MG PATCH TD SCH (15:00)
[2018-06-29] MEDS: Acetaminophen/Codeine 30-300mg Tablet PO PRN ×2 (15:14→20:06)
[2018-06-29] MEDS: Lactated Ringer's 1,000 ML IV SCH (15:21)
[2018-06-29] MEDS: metFORMIN 500 MG TAB PO SCH (16:07)
[2018-06-29] MEDS: Carvedilol 6.25 MG TAB PO SCH (16:15)
[2018-06-29] MEDS: Atorvastatin Calcium 40 MG TAB PO SCH (20:06)
[2018-06-29] MEDS: Docusate 100 MG CAP PO SCH (20:06)
[2018-06-29] MEDS: Vancomycin HCl 1.75 GM in Sodium Chloride 0.9% 250 ML 300 ML IVPB SCH (20:16)
[2018-06-29] MEDS ORDERED: Vancomycin HCl 1.75 GM in Sodium Chloride 0.9% 250 ML 300 ML IVPB SCH (21:00)
[2018-06-29] MEDS ORDERED: Atorvastatin Calcium 20 MG TAB PO SCH (21:00)
[2018-06-30] MEDS: Lactated Ringer's 1,000 ML IV SCH ×4 (00:32→19:59)
[2018-06-30] MEDS: Acetaminophen/Codeine 30-300mg Tablet PO PRN (01:15)
[2018-06-30] MEDS: PROVENTIL INHALER 6.7 G (200 INHALATIONS) INH SCH ×6 (02:47→22:25)
--- NOTE | 2018-06-30 06:18 | PDOC.FM ---
- Subjective Subjective: Reports his foot pain is still 8/10 this morning. Denies SOB or chest pain. No other complaints. - Objective Vital Signs & Weight: Vital Signs (12 hours) Temp Pulse Resp BP Pulse Ox 06/30/18 04:00 98.3 F 60 20 142/60 H 93 L 06/30/18 02:47 70 16 95 06/30/18 00:00 98.0 F 70 20 132/60 95 06/29/18 22:46 61 16 94 L 06/29/18 20:00 97.9 F 63 20 129/86 94 L 06/29/18 18:51 67 16 93 L Weight Weight 122.47 kg Result Diagrams: 06/29/18 08:50 06/29/18 08:50 Phys Exam - Physical Examination Constitutional: NAD HEENT: PERRLA, moist MMs Neck: no nodes, supple Respiratory: no wheezing, no rales, no rhonchi, clear to auscultation bilateral Cardiovascular: RRR, no significant murmur Gastrointestinal: soft, non-tender, positive bowel sounds Neurological: moves all 4 limbs Psychiatric: normal affect, A&O x 3 Skin: normal turgor, cap refill <2 seconds Deviation from normal: bilateral feet dressed by wound care Dx/Plan (1) Osteomyelitis of ankle or foot Code(s): M86.9 - OSTEOMYELITIS, UNSPECIFIED Status: Acute (2) MELODY (acute kidney injury) Code(s): N17.9 - ACUTE KIDNEY FAILURE, UNSPECIFIED Status: Acute (3) Thrombocytosis Status: Acute (4) Drug abuse Code(s): F19.10 - OTHER PSYCHOACTIVE SUBSTANCE ABUSE, UNCOMPLICATED Status: Chronic (5) Noncompliance Code(s): Z91.19 - PATIENT'S NONCOMPLIANCE W OTH MEDICAL TREATMENT AND REGIMEN Status: Chronic (6) CAD (coronary artery disease) Code(s): I25.10 - ATHSCL HEART DISEASE OF [place] CORONARY ARTERY W/O ANG PCTRS Status: Chronic (7) CHF (congestive heart failure) Code(s): I50.9 - HEART FAILURE, UNSPECIFIED Status: Chronic (8) COPD (chronic obstructive pulmonary disease) Status: Chronic Qualifiers: COPD type: emphysema (9) Diabetes type 2, uncontrolled Code(s): E11.65 - TYPE 2 DIABETES MELLITUS WITH HYPERGLYCEMIA Status: Chronic (10) Hx of CABG Status: Chronic (11) Hyperlipidemia Code(s): E78.5 - HYPERLIPIDEMIA, UNSPECIFIED Status: Chronic (12) Hypertension Code(s): I10 - ESSENTIAL (PRIMARY) HYPERTENSION Status: Chronic - Plan Plan: 67 yo M with PMH of HTN, HLD, T2DM, CABG, osteomylitis, MRSA, and COPD who presents for osteomyelitis. Osteomyelitis Rt foot -Nonpalpable pulses in BLE, with audible dorsalis pedis pulses on doppler. Distal wounds on bilateral feet. - In ED, dose of Vanc -XR feet: R osteomyelitis; L no osteomyelitis -CRP 7.9; ESR on 06/24/18 3.4 -Vanc started (06/29) -Consult general surgery, Dr. Huang, recommendations appreciated. -NPO @ midnight -Wound care consult -Consult ID, Dr. Hyanes, recommendations appreciated. Stage 1 MELODY on CKD Stage 3 -Increase of Cr from 1.04 to 1.43 on admission -Continue fluids LR @ 100 ml/hr Thrombocytosis -most likely acute phase reactant 2/2 to osteomyelitis T2DM -Continue metformin -06/24 A1C of 9.6 HTN -Continue home coreg and lisinopril HLD -Continue home Atorvastatin COPD -Continue home albuterol Tobacco abuse -Nicotine patch PRN S/P 3-vessel CABG Mixed diastolic and systolic dysfunction on echo Hx of CVA
[2018-06-30] MEDS ORDERED: Acetaminophen/Codeine 30-300mg Tablet PO PRN (08:04)
[2018-06-30 08:47] LABS: Anion Gap 12 mmol/L (10-20); BUN (Urea Nitrogen) 16 mg/dL (8.4-25.7); Calc. Creatinine Clearance 94 mL/min (70-130); Calcium 9.2 mg/dL (7.8-10.44); Carbon Dioxide 27 mmol/L (23-31); Chloride 99 mmol/L (98-107); Estimated GFR-MDRD 53; Glucose 140 mg/dL (80-115); Potassium 4.6 mmol/L (3.5-5.1); Sodium 133 mmol/L (136-145)
[2018-06-30] MEDS ORDERED: Vancomycin HCl 1.75 GM in Sodium Chloride 0.9% 250 ML 300 ML IVPB SCH (09:00)
[2018-06-30] MEDS: Docusate 100 MG CAP PO SCH ×2 (09:02→19:59)
[2018-06-30] MEDS: Lisinopril 20 MG TAB PO SCH (09:02)
[2018-06-30] MEDS: Vancomycin HCl 1.75 GM in Sodium Chloride 0.9% 250 ML 300 ML IVPB SCH (09:05)
[2018-06-30] MEDS: metFORMIN 500 MG TAB PO SCH ×2 (09:08→16:59)
[2018-06-30] MEDS: Carvedilol 6.25 MG TAB PO SCH ×2 (09:08→17:00)
[2018-06-30] MEDS: Enoxaparin Sodium 40 MG/0.4 ML SYRINGE SC SCH (09:09)
[2018-06-30] MEDS ORDERED: HYDROcodone/Acetaminophen 5/325 mg Tablet PO PRN (09:35)
[2018-06-30] MEDS ORDERED: Ketorolac Tromethamine 30 MG/ML VIAL IVP SCH (09:45)
--- NOTE | 2018-06-30 16:31 | ADD-PRG ---
DATE OF SERVICE: 06/30/2018 Please add this as an addendum to the note of Dr. Yuliana Armstrong. Mr. Carmichael is getting intravenous vancomycin. We are awaiting input from Dr. Ragland regarding the p lacement of PICC line and long-term IV therapy for his osteomyelitis. Surgery will see him tomorrow as Dr. Huang is out of town today. Likely, we will manage him medically with IV antibiotics for the next 4-6 weeks.
[2018-06-30] MEDS: HYDROcodone/Acetaminophen 5/325 mg Tablet PO PRN ×2 (16:59→21:37)
[2018-06-30] MEDS: Atorvastatin Calcium 40 MG TAB PO SCH (20:00)
[2018-06-30] MEDS: Vancomycin HCl 1.75 GM in Sodium Chloride 0.9% 500 ML IVPB SCH (20:02)
--- NOTE | 2018-06-30 20:16 | CON ---
DATE OF CONSULTATION: 06/30/2018 REASON FOR CONSULTATION: Osteomyelitis of right first toe. HISTORY OF PRESENT ILLNESS: A 67-year-old patient who has history of type 2 diabetes, neuropathy, hy pertension, dyslipidemia, chronic smoking who has had chronic complications and lower extremities due to diabetic neuropathy with partial amputation of the left first toe, second left toe amputation and partial amputations of the third and fourth toes, left side. He also has chronic unequal dystrophy and onycholysis of the right first toe and has developed worsening pain with drainage with swelling. He was admitted and plain films showed some erosions of the distal phalanx of the right first toe. REVIEW OF SYSTEMS: He denies headaches, no change in visual symptoms, sore throat, odynophagia, dysp hagia, no cough or sputum production or chest pain, no abdominal pain or diarrhea or genitourinary sy mptoms. No other joint symptoms. No neurological symptoms. PAST MEDICAL HISTORY: Type 2 diabetes, neuropathy, partial amputations of left foot toes, hypertensi on, dyslipidemia, morbid obesity, COPD, chronic smoking. PAST SURGICAL HISTORY: Coronary bypass graft surgery x3, tonsillectomy and left first toe partial am putation of the third and fourth toes, left foot. SOCIAL HISTORY: Drinks occasionally, smokes daily. ALLERGIES: None. CURRENT MEDICATIONS: Tylenol, [place], Proventil, Lipitor, Dulcolax, Coreg, dextrose, Colace, Lovenox, insulin, Zestril, Glucophage, Zofran, vancomycin. ALLERGIES: Negative. PHYSICAL EXAMINATION: VITAL SIGNS: T-max 98.3, blood pressure 113/67, pulse 58, respirations 14, O2 sat 95%. SKIN: Shows the first toe area of onycholysis with ulceration. There seems to be penetration into t he distal phalanx on probing of the area. He also has other toe distal aspect ulcerations, which are chronic with some bleeding both right and left feet, particularly the left side with third and fourt h toe involvement and no right side first, second, and third. No lymphadenopathy. HEENT: Noncontributory. NECK: Supple. LUNGS: With symmetric clear breath sounds. HEART: S1, S2, regular rate without murmurs. ABDOMEN: Soft, nondistended, nontender. EXTREMITIES: Pulses are 1+ in popliteals, faintly palpable in dorsalis pedis right and left side, so mewhat cool extremities. Cap refill was less than 4 seconds. NEUROLOGIC: He is awake, oriented, follows commands. LABORATORY DATA: White cell count 10,000, hemoglobin 12.5, platelets 418 with 76% neutrophils. Sodi um 133, creatinine is at 1.434. GFR of 53. Liver profile normal. CRP 7.9, albumin 4.1. ASSESSMENT: Element of peripheral vascular disease associated with neuropathy and partial amputation s of toes, now with right first toe osteomyelitis with areas of onycholysis with penetration into the distal phalanx. At this point, we will order an arterial duplex ultrasound and will probably need s urgical consultation for amputation at least of the right distal phalanx. Pending on the margin of c learance and may be able to discontinue antimicrobial therapy or just transitioned to oral antimicrob ials.
--- NOTE | 2018-06-30 21:05 | ULT ---
RIGHT LOWER EXTREMITY ARTERIAL DOPPLER ULTRASOUND EVALUATION 06/30/18 HISTORY: Right lower extremity ischemia. Multiple longitudinal and transverse images of the right lower extremity arterial system is obtained using a multihertz linear array transducer. Real time, color flow and spectral waveform doppler aleksandr sis demonstrates triphasic waveform in the right common femoral artery. Biphasic waveform is seen in the right femora profunda. Triphasic waveform is seen in the right superficial artery in the proximal mid and distal portions Biphasic waveform is seen in the right popliteal artery and monophasic waveform is seen in the right anterior tibial, posterior tibial and dorsalis pedis. This suggests post trifurcation extensive disea se with no significant disease in the proximal portion of the right lower extremity. IMPRESSION: Predominantly post trifurcation distal disease. No significant evidence of proximal right lower extre mity arterial disease. POS: [facility]
[2018-06-30 21:24] VITALS: TEMP 97.7
[2018-07-01] MEDS: PROVENTIL INHALER 6.7 G (200 INHALATIONS) INH SCH ×4 (02:03→14:19)
[2018-07-01 05:48] LABS: Anion Gap 11 mmol/L (10-20); BUN (Urea Nitrogen) 20 mg/dL (8.4-25.7); Calc. Creatinine Clearance 102 mL/min (70-130); Calcium 9.1 mg/dL (7.8-10.44); Carbon Dioxide 28 mmol/L (23-31); Chloride 100 mmol/L (98-107); Estimated GFR-MDRD 59; Glucose 122 mg/dL (80-115); Potassium 4.3 mmol/L (3.5-5.1); Sodium 135 mmol/L (136-145)
[2018-07-01] MEDS: HYDROcodone/Acetaminophen 5/325 mg Tablet PO PRN ×3 (05:50→15:38)
--- NOTE | 2018-07-01 05:56 | PDOC.FM ---
- Subjective Subjective: Reports 7/10 pain this morning, says the pain medicine helped some. Says he is more stiff this morning, he reports getting up out of bed yesterday. - Objective Vital Signs & Weight: Vital Signs (12 hours) Temp Pulse Resp BP Pulse Ox 06/30/18 22:25 53 L 12 06/30/18 20:00 97.7 F 54 L 16 147/70 H 94 L 06/30/18 18:24 62 12 96 Weight Admit Weight 122.47 kg Weight 122.47 kg I&O: 06/29/18 06/30/18 07/01/18 06:59 06:59 06:59 Intake Total 1000 Output Total 500 Balance 500 Result Diagrams: 06/29/18 08:50 07/01/18 04:37 Phys Exam - Physical Examination Constitutional: NAD HEENT: PERRLA, sclera anicteric Neck: no nodes, supple Respiratory: no wheezing, no rales, no rhonchi, clear to auscultation bilateral Cardiovascular: RRR, no significant murmur Gastrointestinal: soft, positive bowel sounds umbilical hernia Neurological: moves all 4 limbs Psychiatric: normal affect, A&O x 3 Deviation from normal: wounds bandaged 06/30, some purulent drainage from LLE toe wounds Dx/Plan (1) Osteomyelitis of ankle or foot Code(s): M86.9 - OSTEOMYELITIS, UNSPECIFIED Status: Acute (2) MELODY (acute kidney injury) Code(s): N17.9 - ACUTE KIDNEY FAILURE, UNSPECIFIED Status: Acute (3) Thrombocytosis Status: Acute (4) Drug abuse Code(s): F19.10 - OTHER PSYCHOACTIVE SUBSTANCE ABUSE, UNCOMPLICATED Status: Chronic (5) Noncompliance Code(s): Z91.19 - PATIENT'S NONCOMPLIANCE W OTH MEDICAL TREATMENT AND REGIMEN Status: Chronic (6) CAD (coronary artery disease) Code(s): I25.10 - ATHSCL HEART DISEASE OF [place] CORONARY ARTERY W/O ANG PCTRS Status: Chronic (7) CHF (congestive heart failure) Code(s): I50.9 - HEART FAILURE, UNSPECIFIED Status: Chronic (8) COPD (chronic obstructive pulmonary disease) Status: Chronic Qualifiers: COPD type: emphysema (9) Diabetes type 2, uncontrolled Code(s): E11.65 - TYPE 2 DIABETES MELLITUS WITH HYPERGLYCEMIA Status: Chronic (10) Hx of CABG Status: Chronic (11) Hyperlipidemia Code(s): E78.5 - HYPERLIPIDEMIA, UNSPECIFIED Status: Chronic (12) Hypertension Code(s): I10 - ESSENTIAL (PRIMARY) HYPERTENSION Status: Chronic - Plan Plan: 67 yo M with PMH of HTN, HLD, T2DM, CABG, osteomylitis, MRSA, and COPD who presents for osteomyelitis. Osteomyelitis Rt foot -Nonpalpable pulses in BLE, with audible dorsalis pedis pulses on doppler. Distal wounds on bilateral feet. - In ED, dose of Vanc -XR feet: R osteomyelitis; L no osteomyelitis -CRP 7.9; ESR on 06/24/18 3.4 -Vanc started (06/29) -missed vanc trough before 3rd dose, will be drawn 1 hr before 4th dose -Consult general surgery, Dr. Huang, recommendations appreciated. -NPO @ midnight -Wound care consult -Consult ID, Dr. Haynes saw yesterday, recommends probable amputation and possibly transition to PO antibacterial -RLE arterial duplex US: predominanty post tricfurcation distal disease, no significant evidance of proximal R lower extremity arterial disease -PT/OT today Stage 1 MELODY on CKD Stage 3 -Increase of Cr from 1.04 to 1.43 on admission -Continue fluids LR @ 100 ml/hr Thrombocytosis -most likely acute phase reactant 2/2 to osteomyelitis T2DM -Continue metformin -06/24 A1C of 9.6 HTN -Continue home coreg and lisinopril HLD -Continue home Atorvastatin COPD -Continue home albuterol Tobacco abuse -Nicotine patch PRN S/P 3-vessel CABG Mixed diastolic and systolic dysfunction on echo Hx of CVA
[2018-07-01] MEDS: Lactated Ringer's 1,000 ML IV SCH (06:00)
[2018-07-01] MEDS ORDERED: Sodium Chloride 0.9% 1,000 ML IV SCH (08:30)
--- NOTE | 2018-07-01 08:50 | CON ---
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 He states he just took a break. He has had previous amputations of his left great toe and second to e partially and these have healed. He has had nonhealing wounds that are painful of his right great toe and a small wound on the distal tip of his second toe right. He has had nonhealing wounds of his left third and fourth toes. Prior amputation of the left great toe and second toe have completely h ealed and are not a problem. X-rays of the left foot did not show any obvious osteomyelitis. X-rays of his feet performed 06/29/2018 reveals the right foot erosions of the toes and distal phalanx over lying tissue also indicative of osteomyelitis great toe with chronic erosion of the distal phalanx of the second toe without definitive osteomyelitis. X-rays of his left foot revealed post-surgical filippo nges of the great and second toe, both of which have completely healed. Vascular calcifications are present. ALLERGIES: None. SOCIAL HISTORY: Tobacco 1/2 pack to 1 pack per day. MEDICATIONS: Hydroxyzine at bedtime, ibuprofen as needed 800 mg t.i.d., Ventolin inhaler, metformin 1000 b.i.d., lisinopril 20 daily, Coreg 6.25 mg b.i.d., atorvastatin 40 mg at bedtime, tramadol 50 mg q.i.d. p.r.n. PAST SURGICAL HISTORY: 1. 08/27/2017 - Lico Huang M.D. performed amputation of left second toe through the proximal ph alanx healing by secondary intention with a wound VAC. 2. 08/28/2017 - Dr. Ervin performed bilateral lower extremity interventional procedure with aortogr am runoff, selective left lower extremity runoff, DISPENSARY TECHNICIAN left posterior tibial artery. During that inte rvention he was noted to have a 50-60% long segmental mid occlusion of the anterior tibial artery fol lowed by a short segment subtotal stenosis above the ankle with runoff beyond that to the foot. Karie magdalene artery was patent to the ankle. Posterior tibial is single continuous runoff to the foot with s equential proximal and mid stenosis. On the right side, his right common femoral artery, profunda, S FA, popliteal artery patent across the knee to tibial peroneal trunk with the anterior tibial was occ luded shortly after its origin. Two-vessel runoff was seen provided by disease, but patent posterior tibial and peroneal arteries. 3. Coronary bypass grafting at [facility] in [place], [place] 7 years ago for myocardial infarctio n. Staph infection postoperatively requiring sternal debridement and flaps. He has never had a colonoscopy. PAST MEDICAL HISTORY: Tobacco abuse, PAD, hypertension, diabetes mellitus non-insulin dependent, ost eomyelitis, COPD, continued tobacco abuse, diastolic dysfunction. Echocardiogram 04/2016; cardiac nuclear stress test 04/16/2016 without evidence of ischemia, ejection fraction 36% with global hypokinesis then. Echocardiogram 04/17/2016 diastolic dysfunction 45-50%. Doppler carotids 06/01/2015 without stenosis. SOCIAL HISTORY: As above. FAMILY HISTORY: Father with coronary disease, at 85. ALCOHOL: None. PHYSICAL EXAMINATION: VITAL SIGNS: Height 6 foot 2, 270 pounds, 34 BMI, 97.7, 53. HEENT: Unremarkable. LUNGS: Clear to auscultation. CARDIAC: Regular rate and rhythm without murmur or gallop. Well-healed sternotomy scar. ABDOMEN: Obese, soft, nontender. EXTREMITIES: Palpable femoral, popliteal pulses bilaterally, nonpalpable pedal pulses. He has sligh t amount of hair on his toes in both feet. He has well healed partial amputations, left great and se cond toe. Left third and fourth toes revealed granulation tissue and probing extends to the phalanx. Right great toe reveals granulation tissue occupying most of the dorsal and some of the plantar sol face of the toe, it is very painful. Probing extends to the phalanx, right second toe tip reveals so me deformity. LABORATORY: White count 10, hemoglobin 12, BUN 20, creatinine 1.23, creatinine slightly elevated on admission 1.34, sodium 135, potassium 4.3, glucose 137 to 219, hemoglobin A1c not checked this hospit alization. ASSESSMENT AND PLAN: 1. Osteomyelitis, right great toe with some chronic changes of the second toe. Would recommend ampu tation of the right great toe through the proximal phalanx. Would consider amputation of the right s econd toe which may be necessary in the future. Well-healed prior amputations last year, left great and second toe, but the left third and fourth toe revealed changes with probing consistent with clini deana osteomyelitis, although x-rays do not demonstrate this. Would recommend amputation of left third and fourth toes, possibly with closure. Would recommend this today as he is n.p.o. 2. Tobacco abuse, ongoing. I have reiterated the importance of tobacco cessation. 3. Morbid obesity with metabolic syndrome. 4. Diabetes mellitus. 5. Hypertension. 6. Poorly compliant.
[2018-07-01] MEDS: metFORMIN 500 MG TAB PO SCH ×2 (10:11→17:23)
[2018-07-01] MEDS: Carvedilol 6.25 MG TAB PO SCH ×2 (10:11→17:23)
[2018-07-01] MEDS: Enoxaparin Sodium 40 MG/0.4 ML SYRINGE SC SCH (10:12)
[2018-07-01] MEDS: Vancomycin HCl 1.75 GM in Sodium Chloride 0.9% 500 ML IVPB SCH (10:32)
[2018-07-01] MEDS: Docusate 100 MG CAP PO SCH (10:33)
[2018-07-01] MEDS: Lisinopril 20 MG TAB PO SCH (10:37)
--- NOTE | 2018-07-01 17:01 | PRG ---
DATE OF SERVICE: 07/01/2018 Mr. Carmichael states that his toe pain has improved, but is still in pain. He was seen today in consu ltation by Dr. Huang who has recommended amputation of his right great toe and consider amputation o f the right second toe. Mr. Carmichael is insistent that he wants to be discharged to see his mother a nd will return in a week. We will discuss this with Dr. Huang and proceed accordingly. In the interim, there has been clinically no significant changes in the patient's condition. LABORATORY DATA: His Chem-7 shows a sodium of 135, potassium 4.3, chloride 100, bicarbonate 28, BUN 20, creatinine 1.23. Patient's blood pressure is slightly elevated at 172/84. He remains afebrile. His room air oxygen s aturation is 94.
[2018-07-01 17:25] VITALS: BP 208/86
--- NOTE | 2018-07-02 02:32 | DIS-2 ---
DATE OF ADMISSION: 06/29/2018 DATE OF DISCHARGE: 07/01/2018 RESIDENT: Dr. Yuliana Armstrong. ADMITTING ATTENDING: Dr. Palacio. DISCHARGE ATTENDING: Dr. Palacio. CONSULTATIONS: 1. General Surgery, Dr. Huang on 06/29/2018. 2. Infectious Disease, Dr. Ragland on 06/29/2018. PROCEDURES: 1. On 06/29/2018, foot x-rays (L and R): A. Impression of the left foot on three views: Post-surgical changes including interval amputation of the second digit at the level of the proximal phalanx. Stable amputation of the first digit. Vascular calcifications are identified. No radiographic evidence of osteomyelitis. Nonspecific hypodensity at the level of the distal ankle. B. Right foot on three views: Impression: Erosions of the toes and distal phalanx overlying soft tissue ulcer indicative of osteomyelitis. Chronic erosion of the distal phalanx of the second toe, although not definitely acute, may be due to chronic hammertoe deformity. 2. On 06/30/2018, lower extremity ultrasound: Impression: Predominantly post- trifurcation, distal disease. No significant evidence of proximal right lower extremity arterial disease. PRIMARY DIAGNOSIS: Osteomyelitis of the right lower extremity. SECONDARY DIAGNOSES: 1. Stage 1 acute kidney injury and chronic kidney disease, stage 3. 2. Thrombocytosis. 3. Type 2 diabetes mellitus. 4. Hypertension. 5. Hyperlipidemia. 6. Chronic obstructive pulmonary disease. 7. Tobacco abuse. 8. Status post 3-vessel coronary artery bypass graft. 9. Mixed diastolic and systolic dysfunction on echo. 10. History of cerebrovascular accident. DISCHARGE MEDICATIONS: 1. Clindamycin 300 mg oral t.i.d. 2. Doxycycline 100 mg oral twice daily. 3. Tramadol 50 mg oral q.6 hours p.r.n. for pain. 4. Carvedilol 6.25 mg oral b.i.d. with meals. 5. Lisinopril 20 mg oral daily. 6. Hydroxyzine 25 mg oral at bedtime as needed for insomnia. 7. Ibuprofen 800 mg 3 times daily. 8. Ventolin HFA inhaler 2 puffs inhalation q.4 hours. 9. Metformin 1000 mg oral b.i.d. with meals. 10. Atorvastatin 40 mg oral at bedtime. DISCONTINUED MEDICATIONS: Vancomycin. HISTORY OF PRESENT ILLNESS AND HOSPITAL COURSE: A 67-year-old male with past medical history of hypertension, hyperlipidemia, type 2 diabetes mellitus, CABG , osteomyelitis, MRSA, and COPD, who presents for worsening 9/10 bilateral foot pain. He has had a previous left great toe and second toe amputation. The patient states his feet are becoming really painful about a month ago, and are so painful now that he can barely walk. Patient states the tramadol use to help the pain, but is no longer helping. Patient states he "removed critters from my toes, they looked like worms." For his osteomyelitis, there were nonpalpable pulses in bilateral lower extremities, with audible dorsalis pedis pulses on Doppler. He had distal wounds on bilateral feet. In the ED, he received vancomycin. X-ray of his feet , the right showed osteomyelitis and the left showed no osteomyelitis. He had an elevated CRP and a history of ESR of 3.4 from his clinic note. Vancomycin was continued until his discharge. General Surgery was consulted. Dr. Huang who recommended amputation. The patient wanted to leave the hospital and come back for an amputation. Wound care was also consulted and they dressed his wounds. Dr. Ragland, Infectious Disease, saw him and recommended a probable amputation and then most likely a transition to p.o. antibacterial. Right lower extremity arterial duplex ultrasound showed predominantly post- trifurcation disk disease with no significant evidence of proximal right lower extremity arterial disease. Because the patient was not ready to have an amputation done and wanted to "go and see his mother," he decided to follow up outpatient to get his foot amputation done in a week or so. The patient had increased creatinine of 1.04-1.43 on admission, he was given fluids, lactated Ringer's. For thrombocytosis, it is most likely an acute phase reactant secondary to osteomyelitis. For his type 2 diabetes mellitus, he is continued on metformin which was increased to 1000 mg b.i.d. On 06/24, his A1c was 9.6. DISPOSITION: Stable. DISCHARGE INSTRUCTIONS: 1. Location: Home. 2. Diet: Consistent carbohydrates, heart healthy. 3. Activity: As tolerated. 4. Followup: Follow up with Dr. Huang for osteomyelitis. Follow up with his PCP within 7 days of discharge. [facility] SERVICESIveth
--- NOTE | 2018-07-02 07:05 | ADD-CON ---
ADDENDUM Mr. Carmichael after having seen me this morning refused surgery. He instead wants it next week. I buchanan ve talked to his family practice physicians who admitted him and planned to send him home on oral ant ibiotics and wound care, home health or outpatient [facility] wound care. He will be scheduled for surgery outpatient next week Friday. I have asked healthcare social worker and financial services to see him regar ding this. He has osteomyelitis of his right great toe, nonhealing wound of right second toe and cli nical osteomyelitis of left third and fourth toes, all of which will need to be amputated.
--- NOTE | 2018-07-04 12:23 | EKG ---
Test Reason : Blood Pressure : / mmHG Vent. Rate : 067 BPM Atrial Rate : 067 BPM P-R Int : 144 ms QRS Dur : 086 ms QT Int : 386 ms P-R-T Axes : 038 -11 185 degrees QTc Int : 407 ms Normal sinus rhythm Left ventricular hypertrophy with repolarization abnormality Inferior infarct , age undetermined Abnormal ECG Confirmed by BILL DIAZ ([id number]), makeup editor PRADEEP HASSAN ([id number]) on 07/04/2018 12:23:04 PM Referred By: Confirmed By:BILL DIAZ
--- NOTE | 2018-07-05 17:15 | EKG ---
Test Reason : Blood Pressure : / mmHG Vent. Rate : 056 BPM Atrial Rate : 056 BPM P-R Int : 148 ms QRS Dur : 088 ms QT Int : 430 ms P-R-T Axes : 071 -06 214 degrees QTc Int : 414 ms Sinus bradycardia Left ventricular hypertrophy with repolarization abnormality Inferior infarct , age undetermined Abnormal ECG No previous ECGs available Confirmed by BRENNA ROLLINS ([id number]) on 07/05/2018 5:14:43 PM Referred By: RUSS Confirmed By:BRENNA ROLLINS
== END 2018-07-01 17:40 | disposition home or self-care (01) | DRG 638 ==
LOC: ERS 08:18 → T4-A 09:49
PROVIDERS: ADMIT Family Medicine; ATTEND Family Medicine
DX: E11.69 Type 2 diabetes mellitus with other specified complication (principal); M86.171 Other acute osteomyelitis, right ankle and foot; I50.42 Chronic combined systolic (congestive) and diastolic (congestive) heart failure; I13.0 Hypertensive heart and chronic kidney disease with heart failure and stage 1 through stage 4 chronic kidney disease, or unspecified chronic kidney disease; L03.116 Cellulitis of left lower limb; L03.115 Cellulitis of right lower limb; N17.9 Acute kidney failure, unspecified; D47.3 Essential (hemorrhagic) thrombocythemia; F19.10 Other psychoactive substance abuse, uncomplicated; Z91.19 Patient's noncompliance with other medical treatment and regimen; I25.10 Atherosclerotic heart disease of native coronary artery without angina pectoris; J43.9 Emphysema, unspecified; E11.65 Type 2 diabetes mellitus with hyperglycemia; Z95.1 Presence of aortocoronary bypass graft; E78.5 Hyperlipidemia, unspecified; E11.22 Type 2 diabetes mellitus with diabetic chronic kidney disease; N18.3 Chronic kidney disease, stage 3 (moderate); F17.210 Nicotine dependence, cigarettes, uncomplicated; Z86.73 Personal history of transient ischemic attack (TIA), and cerebral infarction without residual deficits; Z89.422 Acquired absence of other left toe(s); Z89.412 Acquired absence of left great toe; Z66 Do not resuscitate; Z91.81 History of falling; I25.2 Old myocardial infarction; F12.10 Cannabis abuse, uncomplicated; E11.621 Type 2 diabetes mellitus with foot ulcer; L97.519 Non-pressure chronic ulcer of other part of right foot with unspecified severity; L97.529 Non-pressure chronic ulcer of other part of left foot with unspecified severity; E66.01 Morbid (severe) obesity due to excess calories; E88.81 Metabolic syndrome and other insulin resistance; E11.51 Type 2 diabetes mellitus with diabetic peripheral angiopathy without gangrene; E11.40 Type 2 diabetes mellitus with diabetic neuropathy, unspecified; L60.1 Onycholysis; Z68.34 Body mass index [BMI] 34.0-34.9, adult
CPT/HCPCS: 36415; 36416; 80048; 80053; 80202; 82947; 85025; 85652; 86140; 93005; 93010; 93923; 96365; 96366; 96375; 99406; A4216; G8978-GP-CM; G8979-GP-CK; J1650; J1885; J2270; J2405; J3370; J7050

== ENCOUNTER 2019-05-15 21:28 | Inpatient (IN) | payer MEDICARE, MEDICAID ==
--- NOTE | 2019-05-15 22:14 | RAD ---
EXAM: CHEST ONE VIEW PORTABLE: 05/15/19 HISTORY: Shortness of breath, chest pain, abdominal pain. COMPARISON: 10/05/17. FINDINGS: Minimal left pleural thickening. Heart size is within normal limits. No confluent pneumonia, overt ed mariela, or pleural effusion. IMPRESSION: Stable chest with minimal left sided pleural thickening and probable old healed rib fractures. No ac [place] intrathoracic disease. Atherosclerosis of the aorta. POS: [facility]
[2019-05-15 22:21] LABS: #Eosinphils 0.3 thou/uL (0.0-0.7); #Lymphocytes 1.6 thou/uL (1.20-3.40); #Monocytes 0.5 thou/uL (0.11-0.59); #Neutrophils 6.6 thou/uL (1.40-6.50); %Basophils 0.5 % (0.0-1.0); %Eosinophils 3.5 % (0.0-10.0); %Lymphocytes 17.1 % (21.0-51.0); %Monocytes 5.7 % (0.0-10.0); %Neutrophils 73.2 % (42.0-75.0); Hemoglobin 13.8 g/dL (14.0-18.0); Mean Corpuscular HGB CONC 32.9 g/dL (32.0-36.0); Mean Corpuscular Hemoglobin 27.9 pg (27.0-31.0); Mean Platelet Volume 8.2 fL (7.4-10.4); Platelet Count 306 thou/uL (130-400); RBC Distribution Width 13.3 % (11.5-14.5); Red Blood Cell (RBC) Count 4.93 mill/uL (4.70-6.10)
[2019-05-15 22:41] LABS: ALT (SGPT) 14 U/L (8-55); AST (SGOT) 12 U/L (5-34); Albumin 4.2 g/dL (3.4-4.8); Alkaline Phosphatase 114 U/L (40-150); Anion Gap 13 mmol/L (10-20); BUN (Urea Nitrogen) 22 mg/dL (8.4-25.7); Bilirubin, Total 0.4 mg/dL (0.2-1.2); CK (CPK) 79 U/L (30-200); Calc. Creatinine Clearance 0 mL/min (70-130); Calcium 9.6 mg/dL (7.8-10.44); Carbon Dioxide 23 mmol/L (23-31); Chloride 104 mmol/L (98-107); Estimated GFR-MDRD 49; Globulin 2.6 g/dL (2.4-3.5); Glucose 161 mg/dL (80-115); Potassium 5.1 mmol/L (3.5-5.1); Protein, Total 6.8 g/dL (5.8-8.1); Sodium 135 mmol/L (136-145)
[2019-05-15] MEDS ORDERED: Nitroglycerin 2% Ointment 1 INCH/1 GM Packet ONE (22:57)
[2019-05-15] MEDS ORDERED: Aspirin Chewable 81 MG TAB ONE (22:57)
[2019-05-15] MEDS ORDERED: Morphine 4 MG/ML VIAL ONE (23:31)
[2019-05-16] MEDS ORDERED: Acetaminophen 325 MG TAB PO PRN (02:24)
[2019-05-16] MEDS ORDERED: Ondansetron ODT 4 MG TAB PO PRN (02:24)
--- NOTE | 2019-05-16 02:27 | PDOC.FPRHP ---
- History of Present Illness Chief Complaint: Chest Pain History of Present Illness: Mr. Carmichael is a 68 y/o male with a history significant for CAD treated with 3 vessel CABG, HTN, and extensive tobacco abuse who presents to the ED following a 2 day history of substernal chest pain. The patient states that the pain began suddenly while he was sleeping, and was not relieved with position, rest or "taking whatever meds I had at home." Mr. Carmichael characterizes the pain as sharp, 5/10 in severity during initial presentation but 0/10 in the ED due to nitroglycerin and morphine administration, and that that the pain did not radiate. The patient denies recent N/V/D, diaphoresis, weakness, near-syncope, acute changes in vision, PND, LE edema, fevers, chills or night sweats. ED Course: Mr. Carmichael was given a Nitro-Bid patch and Morphine 4 mg IV, both of which resolved his pain. CXR revealed atherosclerosis of the aorta with no acute changes, and an EKG revealed LVH with age-indeterminate changes. - Allergies/Adverse Reactions Allergies Allergy/AdvReac Type Severity Reaction Status Date / Time No Known Allergies Allergy Verified 05/16/19 02:54 - Home Medications Medication Instructions Recorded Confirmed Type Atorvastatin Calcium [Lipitor] 40 mg PO HS 06/29/18 05/16/19 History Ibuprofen 800 mg PO TID PRN 06/29/18 05/16/19 History Ventolin HFA Inhaler 2 puff INH Q4HR PRN 06/29/18 05/16/19 History hydrOXYzine HCl [hydrOZYzine HCl] 25 mg PO HS PRN 06/29/18 05/16/19 History metFORMIN [Glucophage] 1,000 mg PO BID-WM 06/29/18 05/16/19 History Aspirin [Ecotrin] 81 mg PO DAILY 05/16/19 05/16/19 History Lisinopril 40 mg PO DAILY 05/16/19 05/16/19 History - History PMHx: CAD, treated with 3 vessel CABG (2009), HTN, COPD PSHx: 3 vessel CABG (2009), Toe Amputation, Tonsillectomy FHx: Father (CAD) Social: 1 PPD Tobacco Abuse, Occasional EtOH Use (< 5 per Month), Rare Drug Abuse (Marijuana, Last Useage in 2016) - Review of Systems General: denies: fever/chills, weight/appetite/sleep changes, night sweats, fatigue Eyes: reports: vision changes (Sub-acute worsening of vision) ENT: denies: nasal congestion, rhinorrhea Respiratory: reports: cough. denies: congestion, shortness of breath Cardiovascular: reports: chest pain. denies: edema, paroxysmal nocturnal dyspnea Gastrointestinal: denies: nausea, vomiting, diarrhea, abdominal pain Genitourinary: denies: dysuria, polyuria, discharge Skin: denies: rashes, lesions Musculoskeletal: denies: pain Neurological: denies: syncope Psychological: denies: anxiety, depression - Vital signs BP: [143/84] HR: [63] RR: [15] Tmax: [97.7 - Oral] Pox: [95]% on [Room] Wt: [ 115 kg] - Physical Exam Constitutional: NAD, awake, alert and oriented, well developed HEENT: normocephalic and atraumatic, PERRLA, conjunctiva clear, no scleral icterus, grossly normal vision, grossly normal hearing, MMM, oropharynx clear, other (Poor Dentition) Neck: supple, FROM, trachea midline, no LAD, no JVD Chest: no-tender to palpation, no lesions, other (Prominent Sternotomy Scar) Heart: RRR, normal S1/S2, no murmurs/rubs/gallops, pulses present, no edema Lungs: CTAB, no respiratory distress, good air movement, no rales/rhonchi, no wheezing, no retractions Abdomen: soft, non-tender, bowel sounds present, no masses/distention Musculoskeletal: normal structure, normal tone, ROM grossly normal Neurological: no focal deficit Skin: no rash/lesions, good turgor Heme/Lymphatic: no unusual bruising or bleeding, no purpura, no petechia Psychiatric: normal mood and affect FMR H&P: Results - Labs Result Diagrams: 05/16/19 02:36 05/16/19 02:36 Lab results: WBC 9.0 thou/uL (4.8-10.8) 05/15/19 22:10 Hgb 13.8 g/dL (14.0-18.0) L 05/15/19 22:10 Hct 41.9 % (42.0-52.0) L 05/15/19 22:10 MCV 85.0 fL (78.0-98.0) 05/15/19 22:10 Plt Count 306 thou/uL (130-400) 05/15/19 22:10 Neutrophils % 73.2 % (42.0-75.0) 05/15/19 22:10 Sodium 135 mmol/L (136-145) L 05/15/19 22:10 Potassium 5.1 mmol/L (3.5-5.1) 05/15/19 22:10 Chloride 104 mmol/L (98-107) 05/15/19 22:10 Carbon Dioxide 23 mmol/L (23-31) 05/15/19 22:10 BUN 22 mg/dL (8.4-25.7) 05/15/19 22:10 Creatinine 1.44 mg/dL (0.7-1.3) H 05/15/19 22:10 Glucose 161 mg/dL (80-115) H 05/15/19 22:10 Calcium 9.6 mg/dL (7.8-10.44) 05/15/19 22:10 Total Bilirubin 0.4 mg/dL (0.2-1.2) 05/15/19 22:10 AST 12 U/L (5-34) 05/15/19 22:10 ALT 14 U/L (8-55) 05/15/19 22:10 Alkaline Phosphatase 114 U/L (40-150) 05/15/19 22:10 Creatine Kinase 79 U/L (30-200) 05/15/19 22:10 B-Natriuretic Peptide 391.2 pg/mL (0-100) H 05/15/19 22:10 Serum Total Protein 6.8 g/dL (5.8-8.1) 05/15/19 22:10 Albumin 4.2 g/dL (3.4-4.8) 05/15/19 22:10 - EKG Interpretation EKG: LVH with age-indeterminate abnormalities likely secondary to previous SC. - Radiology Interpretation Chest x-ray Status: report reviewed by me (Atherosclerosis of aorta with no acute changes.) FMR H&P: A/P - Problem List (1) Chest pain Current Visit: No Status: Acute Code(s): R07.9 - CHEST PAIN, UNSPECIFIED (2) COPD (chronic obstructive pulmonary disease) Current Visit: No Status: Chronic Qualifiers: COPD type: emphysema (3) Diabetes type 2, uncontrolled Current Visit: No Status: Chronic Code(s): E11.65 - TYPE 2 DIABETES MELLITUS WITH HYPERGLYCEMIA (4) CAD (coronary artery disease) Current Visit: No Status: Chronic Code(s): I25.10 - ATHSCL HEART DISEASE OF [place] CORONARY ARTERY W/O ANG PCTRS - Plan 1. Chest Pain -Sharp, substernal chest pain that occurred at rest in light of complex cardiac history with extensive smoking history -Pain relieved with Nitro-Bid and Morphine -Heart Score: 6 (Moderate Risk) -Troponins: < 0.01 x1 -BNP: 391 -TSH: Pending -Mg: Pending -Phosphorus: Pending -EKG: LVH with age-indeterminate findings, no evidence of STEMI -Nuclear Stress Test in AM -Nitro-Bid patch and/or Morphine 4 mg IV PRN for pain -Admit to Telemetry for Observation 2. CAD -Encourage tobacco abstinence -Continue home medication regiment 3. Diabetes -Glucose: 161 -Continue home medication regimen 4. COPD -Extensive smoking history -Encourage incentive spirometry -Monitor O2SAT -Consider O2 supplementation or DuoNeb treatment PRN if symptoms worsen or O2SAT < 92% Dispo: ACS unlikely due to prompt resolution of symptoms with Nitro-Bid and Morphine, in light of negative EKG. NM Stress Test scheduled for AM. Consider Cardiology consult if results non-reassuring. Manage breakthrough pain with Nitro-Bid and/or Morphine. Expected LOS < 48H FMR H&P: Upper Level - Pertinent history 68 yo male presents with two day history of chest pain. Patient reports waking up with chest pain. Patient has past history of CABG and PVD. Patient reports pain relieved by nitro and morphine. HEART SCORE 6. Please see architect intern note above. General: Male appears older than stated age. NAD. HEENT: Poor dentition CV: RRR, no murmurs Respiratory: CTA, no wheezing Extremities: no edema present. Moves all four extremities Abdomen: Soft-non tender, normoactive BS. Psych: A&O x2. Obvious altered mentation Neuro: No focal deficits - Plan Date/Time: 05/16/19 0222 IDev MD, have evaluated this patient and agree with findings/ plan as outlined by architect intern resident. Pertinent changes/additions are listed here. Chest Pain -HEART score 6 -NPO -Stress in AM -Trend Troponins -Mg, Phos, TSH MELODY vs CKD -Monitor with CMP -Gentle PO rehydration Elevated BNP -Caution with IVF -No clinical signs of overload at this time -Consider diuresis -I&Os CAD -CABG -As above with chest pain COPD -Not in acute exacerbation -O2 as needed -Continue home meds Tobacco abuse -Recommended cessation -Nicotine patches as needed PCP: Dr. Mike Llamas CODE STATUS: DNAR Disposition: Stable, will admit to Telemetry for further monitoring and evaluation.
[2019-05-16 02:42] LABS: #Basophils 0.1 thou/uL (0.0-0.2); #Eosinphils 0.3 thou/uL (0.0-0.7); #Lymphocytes 1.7 thou/uL (1.20-3.40); #Monocytes 0.4 thou/uL (0.11-0.59); #Neutrophils 6.1 thou/uL (1.40-6.50); %Basophils 0.6 % (0.0-1.0); %Eosinophils 3.3 % (0.0-10.0); %Lymphocytes 19.9 % (21.0-51.0); %Monocytes 4.9 % (0.0-10.0); %Neutrophils 71.2 % (42.0-75.0); Hemoglobin 13.6 g/dL (14.0-18.0); Mean Corpuscular Hemoglobin 29.1 pg (27.0-31.0); Mean Corpuscular Volume 85.6 fL (78.0-98.0); Mean Platelet Volume 7.8 fL (7.4-10.4); Platelet Count 302 thou/uL (130-400); RBC Distribution Width 13.2 % (11.5-14.5); Red Blood Cell (RBC) Count 4.66 mill/uL (4.70-6.10); White Blood Cell (WBC) Count 8.6 thou/uL (4.8-10.8)
[2019-05-16 02:57] LABS: Magnesium 1.8 mg/dL (1.6-2.6); Phosphorus 2.8 mg/dL (2.3-4.7)
[2019-05-16 03:00] LABS: Troponin I Less than 0.010 ng/mL (< 0.028)
[2019-05-16 03:03] LABS: ALT (SGPT) 13 U/L (8-55); AST (SGOT) 11 U/L (5-34); Albumin 3.9 g/dL (3.4-4.8); Alkaline Phosphatase 112 U/L (40-150); Anion Gap 13 mmol/L (10-20); BUN (Urea Nitrogen) 21 mg/dL (8.4-25.7); Bilirubin, Total 0.4 mg/dL (0.2-1.2); Calc. Creatinine Clearance 87 mL/min (70-130); Calcium 9.7 mg/dL (7.8-10.44); Carbon Dioxide 22 mmol/L (23-31); Chloride 105 mmol/L (98-107); Estimated GFR-MDRD 51; Globulin 3.1 g/dL (2.4-3.5); Glucose 136 mg/dL (80-115); Potassium 4.6 mmol/L (3.5-5.1); Sodium 135 mmol/L (136-145)
[2019-05-16] MEDS ORDERED: hydrOXYzine 25 MG TAB PO PRN (03:05)
[2019-05-16] MEDS ORDERED: PROVENTIL INHALER 6.7 G (200 INHALATIONS) INH PRN (03:05)
[2019-05-16] MEDS ORDERED: Ibuprofen 800 MG TAB PO PRN (03:05)
[2019-05-16] MEDS: Nitroglycerin 0.4 MG TAB (25 Tab Bottle) PO PRN ×3 (05:17→05:43)
--- NOTE | 2019-05-16 05:24 | PDOC.EVN ---
Event Note - Event Note Event Note: At approximately 0430, Mr. Carmichael complained to his nurse that his CP was worsening, describing it as the same type of pain that caused him to present to the ED the previous evening. He described it as substernal, sharp in nature and without radiation, and a 6/10 in severity. He also noted that it was worse on inspiration and palpation. He denied any nausea, vomiting, diaphoresis or SOB. At the time of evaluation he had to be aroused from sleep. Physical examination revealed no changes in cardiovascular or respiratory function compared to his intake in the ED, and a review of his rhythm strip and a stat EKG revealed no significant changes. An additional blood draw was performed for troponin assessment, and he was given nitroglycerin SL, with nursing staff being advised to page TAMP if his pain did not lessen.
[2019-05-16 05:43] LABS: Troponin I Less than 0.010 ng/mL (< 0.028)
[2019-05-16] MEDS: Aspirin 81 mg Enteric Coated Tablet PO SCH (08:32)
[2019-05-16] MEDS: Lisinopril 20 MG TAB PO SCH (08:32)
[2019-05-16] MEDS: Amlodipine 5 MG TAB PO SCH (08:32)
[2019-05-16] MEDS ORDERED: Regadenoson 0.4 MG/5 ML SYRINGE ONE (09:54)
[2019-05-16 10:27] LABS: Amphetamine Detected (NotDetected); Barbiturates Screen Not Detected (NotDetected); Benzodiazepine Screen Not Detected (NotDetected); Cocaine Metabolite Screen Not Detected (NotDetected); Medtox Control Line Valid? VALID (VALID); Medtox Reader # READER 4; Methadone Not Detected (NotDetected); Methamphetamine Detected (NotDetected); Opiate Screen Detected (NotDetected); Oxycodone Screen Not Detected (NotDetected); Phencyclidine (PCP) Not Detected (NotDetected); THC/Cannabinoid Screen Not Detected (NotDetected); Tricyclic Screen Not Detected (NotDetected)
--- NOTE | 2019-05-16 11:08 | HP ---
I have examined the patient. I have discussed the case with Dr. Ernesto Rodrigues, and agree with his assessment and plan. HISTORY OF PRESENT ILLNESS: Briefly, Mr. Carmichael is a 68-year-old male with a history of three-vessel bypass, who presented with a 2-day history of substernal chest discomfort. The pain started suddenly when he was asleep and was not relieved with position change or medications that he took at home. He eventually presented to our ER, where he was given nitroglycerin patch and morphine, which finally relieved his discomfort. He has been admitted for further evaluation and stress testing. PHYSICAL EXAMINATION: VITAL SIGNS: On exam, his blood pressure is 143/84, heart rate is 60, respirations 14, he is afebrile, and has a room air pulse ox of 95%. GENERAL: He is awake and alert, in no distress. EAR, NOSE, AND THROAT: No erythema or exudate. NECK: Supple. CARDIAC: Heart rhythm regular. S4 gallop. No murmur or rub noted. LUNGS: Diminished, but clear without rales or wheezes. ABDOMEN: Nondistended, flat, and soft. No guarding or rigidity. NEUROLOGIC: No focal deficits. EXTREMITIES: No edema. LABORATORY DATA: CBC; white count is 9000, hemoglobin 13.8, and hematocrit 41.9 with an MCV of 85. Chemistry; sodium 135, potassium 4.6, chloride 105, bicarb 22, BUN 21, and creatinine 1.38. Liver enzymes are normal. His troponins are less than 0.01 x2. EKG shows no acute ischemic changes. ASSESSMENT: Chest pain. PLAN: Admit. Stress test. Proceed based on results. Currently, clinically stable. Job ID: [id number]
[2019-05-16] MEDS: metFORMIN 500 MG TAB PO SCH ×2 (13:31→16:58)
--- NOTE | 2019-05-16 15:31 | NM ---
NUCLEAR MEDICINE CARDIAC STRESS WITH EF AND WALL MOTION: COMPARISON: 10/06/2017 TECHNIQUE: The patient was administered 10.10 millicuries of technetium 99m sestamibi for rest imaging and 32.7 millicuries of technetium 99m sestamibi for stress imaging. Cardiac gating is performed. FINDINGS: Rest attenuated correction images demonstrate a homogeneous distribution of the radiotracer. No defi nite reversibility or fixed defect. TID is 1.20. End-diastolic volume is 180 mL. End-systolic volume is 115 mL. There is global hypokinesis. Ejection fraction is 36%. IMPRESSION: 1. No evidence of reversibility; however, electrocardiogram results were positive. Consider additio nal evaluation with possible coronary angiogram. 2. Global hypokinesis with a 36% ejection fraction. 3. Left ventricle dilatation. POS: OLIVIA
[2019-05-16] MEDS: Nitroglycerin 2% Ointment 1 INCH/1 GM Packet TOP SCH (19:40)
[2019-05-16] MEDS: Atorvastatin Calcium 40 MG TAB PO SCH (19:42)
--- NOTE | 2019-05-17 01:23 | CON ---
DATE OF CONSULTATION: 05/16/2019 REASON FOR CONSULTATION: Chest pressure at rest, previous bypass surgery. The patient has previously been seen by Dr. Jai Melvin. HISTORY OF PRESENT ILLNESS: Mr. Carmichael is a 68-year-old gentleman. He was seen here in 2016 [address] Melvin saw him in 2017. At that time, the patient did report a history of having bypass surgery x3 in [place]. He said that was in 2012. 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 In 2016, he had chest discomfort. Stress testing revealed ejection fraction of 36% with global hypokinesis. The patient states he recently has been having chest pain and pressure at rest. He came here to the emergency room. He got nitrates and morphine and began to feel better. Stress test will be outlined below. PREVIOUS SURGICAL HISTORY: 1. Bypass surgery. 2. Sternal wound infection with debridement a year later. 3. He was also seen in [address] Ervin, and Dr. Ervin did a balloon angioplasty on the left posterior tibial artery. SOCIAL HISTORY: He smokes about 3/4th of a pack of cigarettes per day, so that is "cut way down." MEDICATIONS: At home included; 1. Hydroxyzine. 2. Ibuprofen. 3. Metformin. 4. Atorvastatin. 5. Aspirin. 6. Lisinopril. REVIEW OF SYSTEMS: CONSTITUTIONAL: No significant weight gain or loss. HEENT: Vision, no changes. Hearing, no changes. PULMONARY: No cough. CARDIAC: As outlined above, chest pain. GASTROINTESTINAL: No nausea, vomiting, diarrhea. SKIN: No rashes. ALLERGIES: NONE KNOWN. PHYSICAL EXAMINATION: GENERAL: This is a pleasant 68-year-old gentleman, resting comfortably. VITAL SIGNS: Blood pressure 165/75, pulse 70. LUNGS: Clear. CARDIAC: Normal S1, normal S2. ABDOMEN: Soft, nontender. EXTREMITIES: Warm, dry. No clubbing or cyanosis. There is minimal peripheral edema. I do feel popliteal pulses. The pedal pulses are diminished. PERTINENT LABORATORY DATA: Creatinine is 1.38. Troponin less than 0.010. Stress test was done. It revealed the ejection fraction is diminished at 36%. The patient did have chest pain with some ST and T-wave changes during the stress test. The images did not reveal reversibility with the radiologist note is outlined in the chart, he wrote to consider further evaluation. ASSESSMENT: 1. Previous bypass surgery as outlined above. 2. Peripheral vascular disease. 3. Mild renal insufficiency. 4. Continued smoking. 5. Hypercholesterolemia and hypertension, being treated. The patient did have some EKG changes during the Lexiscan or just after the Lexiscan injection. I think he is having angina. Dr. Melvin will see the patient tomorrow to make further decisions about care. The patient does not wish to be resuscitated in the event of cardiac arrest, but he does wish to have therapy that can improve his quality of life. Job ID: [id number]
[2019-05-17] MEDS: Nitroglycerin 2% Ointment 1 INCH/1 GM Packet TOP SCH ×3 (06:22→20:50)
[2019-05-17] MEDS ORDERED: Lidocaine 2% Viscous Solution 20 ML, Aluminum & Magnesium Hydroxide 30 ML, Donnatal Eli... SSW SCH (06:45)
--- NOTE | 2019-05-17 06:45 | PDOC.FM ---
- Subjective Subjective: Pt states he was sleeping well overnight, but awoke this morning with a burning epigastric pain, different from his initial presentation CP. No n/v/d/c/. Night team was paged and ordered an EKG that was unchanged and prescribed GI cocktail with Bentyl. He denies any SOB, fever/chills. Good ambulation. He is awaiting Dr. Melvin's recs due to his positive stress test. - Objective MAR Reviewed: Yes Vital Signs & Weight: Vital Signs (12 hours) Temp Pulse Resp BP Pulse Ox 05/17/19 04:08 98.2 F 75 16 153/78 H 97 05/17/19 02:12 95 05/16/19 23:20 97.5 F L 73 15 139/68 92 L 05/16/19 19:00 97.9 F 65 15 165/72 H 95 Weight Weight 117.208 kg I&O: 05/15/19 05/16/19 05/17/19 06:59 06:59 06:59 Intake Total 50 1110 Output Total 375 1125 Balance -325 -15 Result Diagrams: 05/16/19 02:36 05/16/19 02:36 EKG Reviewed by me: Yes (Tele: 60-70s NSR) Phys Exam - Physical Examination Appears midly uncomfortable 2/2 epigastric discomfort, worse with movement HEENT: moist MMs Neck: supple Respiratory: no wheezing, no rales, no rhonchi, clear to auscultation bilateral Cardiovascular: RRR, no significant murmur, no rub Gastrointestinal: soft, no distention, positive bowel sounds Mildly TTP over epigastric region. No rebound, mild voluntary guarding. Musculoskeletal: no edema Neurological: moves all 4 limbs Psychiatric: A&O x 3 Dx/Plan (1) Chest pain Code(s): R07.9 - CHEST PAIN, UNSPECIFIED Status: Acute (2) CAD (coronary artery disease) Code(s): I25.10 - ATHSCL HEART DISEASE OF [place] CORONARY ARTERY W/O ANG PCTRS Status: Chronic Qualifiers: Coronary Disease-Associated Artery/Lesion type: bypass graft (3) CHF (congestive heart failure) Code(s): I50.9 - HEART FAILURE, UNSPECIFIED Status: Chronic Qualifiers: Heart failure type: systolic (4) Diabetes type 2, uncontrolled Code(s): E11.65 - TYPE 2 DIABETES MELLITUS WITH HYPERGLYCEMIA Status: Chronic (5) Drug abuse Code(s): F19.10 - OTHER PSYCHOACTIVE SUBSTANCE ABUSE, UNCOMPLICATED Status: Chronic (6) Hypertension Code(s): I10 - ESSENTIAL (PRIMARY) HYPERTENSION Status: Chronic - Plan Plan: 68yo CM with h/o CAD s/p 3vCABG, HFrEF, COPD who presents with typical chest pain 1. Typical Chest Pain - Extensive cardiac history and polysubstance abuse. Pain relieved with nitro and morphine - Heart Score: 6 (Moderate Risk). Trops negative. BNP 391. TSH, Mg, Phos WNL - EKG: LVH with age-indeterminate findings, no evidence of STEMI. No acute events on tele. - Nuclear Stress Test demonstrated no reversibility, but positive EKG findings, EF 36% - Cards consulted, Dr. Melvin, appreciate recs. 2. CAD - Encourage tobacco abstinence - Continue home medication regiment 3. HFrEF - EF 36% on cath. Records reviewed, and this is reduced from 40-45% on last Echo in 09/2017 - continue home medications - Awaiting recs from cards 4. DM II -Continue home medication regimen. Hyperglycemic protocol. Continue to monitor. 4. COPD - Extensive smoking history - VSS Encourage incentive spirometry. Monitor O2 sat. Dispo: Pending cardiology recs. Addendum - Attending - Attending Attestation Date/Time: 05/17/192037 I personally evaluated the patient and discussed the management with Dr. Patt May at 1015. I agree with the History, Examination, Assessment and Plan documented above with any addition or exceptions noted below. CP with abnormal stress test- cath with Dr. Melvin today known CAD Meth abuse- counseling
[2019-05-17] MEDS: metFORMIN 500 MG TAB PO SCH (07:36)
[2019-05-17] MEDS: Amlodipine 5 MG TAB PO SCH (07:37)
[2019-05-17] MEDS: Aspirin 81 mg Enteric Coated Tablet PO SCH (07:37)
[2019-05-17] MEDS: Dicyclomine 10 MG CAP PO SCH ×4 (07:37→20:52)
[2019-05-17] MEDS: Lisinopril 20 MG TAB PO SCH (07:37)
[2019-05-17] MEDS ORDERED: Communication Order-Pharmacy FS SCH (08:45)
[2019-05-17] MEDS ORDERED: Sodium Chloride 0.9% 1,000 ML IV SCH ×3 (08:45→23:00)
[2019-05-17] MEDS ORDERED: Carvedilol 6.25 MG TAB PO SCH (09:00)
[2019-05-17] MEDS ORDERED: Iopamidol 370 76% 100 ML VIAL ONE (11:06)
[2019-05-17] MEDS ORDERED: Iopamidol 370 76% 50 ML VIAL FS ONE (11:06)
[2019-05-17] MEDS ORDERED: Heparin 10,000 UNITS/1 ML VIAL ONE (14:51)
[2019-05-17] MEDS ORDERED: Lidocaine 1% (PF) 30 ML VIAL ONE (14:52)
[2019-05-17 15:25] VITALS: BMI 33.1
[2019-05-17] MEDS ORDERED: Fentanyl 100 MCG/2 ML VIAL ONE (15:50)
[2019-05-17] MEDS ORDERED: Bivalirudin 250 MG VIAL ONE (16:12)
[2019-05-17] MEDS ORDERED: Clopidogrel Bisulfate 300 MG TAB ONE (16:21)
[2019-05-17] MEDS ORDERED: Morphine 4 MG/ML VIAL SLOW IVP PRN ×2 (16:54)
[2019-05-17] MEDS ORDERED: Carvedilol 3.125 MG TAB PO SCH (17:00)
[2019-05-17] MEDS: Carvedilol 6.25 MG TAB PO SCH ×2 (18:06→21:05)
[2019-05-17] MEDS ORDERED: Morphine 4 MG/ML VIAL ONE (19:00)
[2019-05-17] MEDS: Atorvastatin Calcium 40 MG TAB PO SCH (20:52)
[2019-05-18 04:36] LABS: #Eosinphils 0.4 thou/uL (0.0-0.7); #Lymphocytes 1.4 thou/uL (1.20-3.40); #Monocytes 0.8 thou/uL (0.11-0.59); #Neutrophils 7.4 thou/uL (1.40-6.50); %Basophils 0.5 % (0.0-1.0); %Eosinophils 3.9 % (0.0-10.0); %Lymphocytes 13.7 % (21.0-51.0); %Monocytes 7.7 % (0.0-10.0); %Neutrophils 74.2 % (42.0-75.0); Hemoglobin 13.1 g/dL (14.0-18.0); Mean Corpuscular HGB CONC 34.2 g/dL (32.0-36.0); Mean Corpuscular Hemoglobin 29.4 pg (27.0-31.0); Mean Platelet Volume 8.3 fL (7.4-10.4); Platelet Count 310 thou/uL (130-400); RBC Distribution Width 13.1 % (11.5-14.5); Red Blood Cell (RBC) Count 4.46 mill/uL (4.70-6.10); White Blood Cell (WBC) Count 9.9 thou/uL (4.8-10.8)
[2019-05-18 04:57] LABS: ALT (SGPT) 9 U/L (8-55); AST (SGOT) 11 U/L (5-34); Albumin 3.6 g/dL (3.4-4.8); Alkaline Phosphatase 98 U/L (40-150); Anion Gap 14 mmol/L (10-20); BUN (Urea Nitrogen) 20 mg/dL (8.4-25.7); Bilirubin, Total 0.7 mg/dL (0.2-1.2); Calc. Creatinine Clearance 88 mL/min (70-130); Calcium 9.4 mg/dL (7.8-10.44); Carbon Dioxide 21 mmol/L (23-31); Cardiac Risk 3.3 (Less than 4.5); Chloride 103 mmol/L (98-107); Cholesterol 132 mg/dl (< 200 Desired); Estimated GFR-MDRD 53; Globulin 2.9 g/dL (2.4-3.5); Glucose 145 mg/dL (80-115); HDL Cholesterol 40 mg/dL (>60 Neg Risk); LDL Cholesterol, Calculated 65 mg/dL; Potassium 4.5 mmol/L (3.5-5.1); Protein, Total 6.5 g/dL (5.8-8.1); Sodium 133 mmol/L (136-145); Triglycerides 137 mg/dL (Less than 150)
--- NOTE | 2019-05-18 06:54 | PDOC.FM ---
- Subjective Subjective: Pt doing well this morning without concerns or complaints. Cath went well yesterday - severe 3v CAD with placement of 1 BMS. Slept well, no acute events overnight. No fever/chills, n/v/d/c, CP, SOB, or pain of any robby. Eager for discharge. - Objective MAR Reviewed: Yes Vital Signs & Weight: Vital Signs (12 hours) Temp Pulse Resp BP Pulse Ox 05/18/19 03:40 98.7 F 66 14 144/69 H 92 L 05/18/19 00:00 70 20 122/56 L 96 05/17/19 20:25 99.1 F 70 16 157/77 H 97 Weight Admit Weight 117.254 kg Weight 117.208 kg I&O: 05/16/19 05/17/19 05/18/19 06:59 06:59 06:59 Intake Total 50 1110 Output Total 375 1125 Balance -325 -15 Result Diagrams: 05/18/19 04:17 05/18/19 04:17 Phys Exam - Physical Examination Constitutional: NAD HEENT: moist MMs Neck: supple Respiratory: no wheezing, no rales, no rhonchi, clear to auscultation bilateral Cardiovascular: RRR, no significant murmur, no rub Gastrointestinal: soft, non-tender, no distention, positive bowel sounds Musculoskeletal: no edema, pulses present Neurological: non-focal Psychiatric: A&O x 3 Dx/Plan (1) CAD (coronary artery disease) Code(s): I25.10 - ATHSCL HEART DISEASE OF [place] CORONARY ARTERY W/O ANG PCTRS Status: Chronic Qualifiers: Coronary Disease-Associated Artery/Lesion type: bypass graft (2) CHF (congestive heart failure) Code(s): I50.9 - HEART FAILURE, UNSPECIFIED Status: Chronic Qualifiers: Heart failure type: systolic (3) Diabetes type 2, uncontrolled Code(s): E11.65 - TYPE 2 DIABETES MELLITUS WITH HYPERGLYCEMIA Status: Chronic (4) Drug abuse Code(s): F19.10 - OTHER PSYCHOACTIVE SUBSTANCE ABUSE, UNCOMPLICATED Status: Chronic (5) Hypertension Code(s): I10 - ESSENTIAL (PRIMARY) HYPERTENSION Status: Chronic - Plan Plan: 68yo CM with h/o CAD s/p 3vCABG, HFrEF, COPD who presents with typical chest pain 1. Chest Pain - Extensive cardiac history and polysubstance abuse. Trops neg, Lytes and TSH WNL. - Stress positive EKG changes, EF 36% - Cards, Dr. Melvin, consulted. Heart cath on 05/17 with 1 bare metal stent placed. Started plavix and coreg. Ok to d/c per cardio standpoint. Appreciate recs and assistance. 2. CAD - severe 3v disease on cath. - Encourage tobacco abstinence. Continue home meds. - Consulted cardiac rehab. 3. HFrEF - EF 36% on cath. Records reviewed, and this is reduced from 40-45% on last Echo in 09/2017 - Continue home meds. Started on plavix for stent and Coreg 6.25 BID. Appreciate Cards recs. 4. DM II -Continue home medication regimen. Hyperglycemic protocol. Continue to monitor. 5. COPD - Extensive smoking history - VSS. Encourage incentive spirometry. Monitor O2 sat. Dispo: Discharge today. F/u with PCP and Cards as OP. Addendum - Attending - Attending Attestation Date/Time: 05/18/19 7724 I personally evaluated the patient and discussed the management with Dr. Patt May at 1020 I agree with the History, Examination, Assessment and Plan documented above with any addition or exceptions noted below. CP secondary to CAD- s/p stent- on plavix and inc dose of coreg. Chronic CHF with EF 36%- no exacerbation. home on elio inh and beta argelia. Meth use- cessation- patient denies though multiple positive screens over the past few hospitalizations. stable for d/c home
[2019-05-18] MEDS ORDERED: Sodium Chloride 0.9% 1,000 ML IV SCH (08:00)
[2019-05-18] MEDS ORDERED: Aspirin Chewable 81 MG TAB PO SCH (09:00)
[2019-05-18] MEDS ORDERED: Clopidogrel Bisulfate 75 MG TAB PO SCH (09:00)
[2019-05-18] MEDS: Lisinopril 20 MG TAB PO SCH (09:50)
[2019-05-18] MEDS: Amlodipine 5 MG TAB PO SCH (09:51)
[2019-05-18] MEDS: Dicyclomine 10 MG CAP PO SCH ×2 (09:51→14:01)
[2019-05-18] MEDS: Carvedilol 6.25 MG TAB PO SCH (09:51)
[2019-05-18] MEDS: Nitroglycerin 2% Ointment 1 INCH/1 GM Packet TOP SCH (09:52)
[2019-05-18 11:25] VITALS: BP 129/60; TEMP 97.9
--- NOTE | 2019-05-18 18:52 | EKG ---
Test Reason : Blood Pressure : / mmHG Vent. Rate : 067 BPM Atrial Rate : 067 BPM P-R Int : 138 ms QRS Dur : 102 ms QT Int : 402 ms P-R-T Axes : 055 -10 137 degrees QTc Int : 424 ms Sinus rhythm with Premature atrial complexes Minimal voltage criteria for LVH, may be normal variant Inferior infarct (cited on or before 30-NOV-2012) Abnormal ECG When compared with ECG of 16-MAY-2019 04:44, (Unconfirmed) T wave inversion no longer evident in Anterior leads Confirmed by RONALDO BE, DR. Matute (4) on 05/18/2019 6:52:07 PM Referred By: RIA Confirmed By:DR. Juju HIGGINS MD
--- NOTE | 2019-05-18 18:52 | EKG ---
Test Reason : Blood Pressure : / mmHG Vent. Rate : 065 BPM Atrial Rate : 065 BPM P-R Int : 138 ms QRS Dur : 098 ms QT Int : 414 ms P-R-T Axes : 054 001 193 degrees QTc Int : 430 ms Normal sinus rhythm with sinus arrhythmia Inferior infarct (cited on or before 30-NOV-2012) Abnormal ECG When compared with ECG of 17-MAY-2019 17:22, (Unconfirmed) Premature atrial complexes are no longer Present Confirmed by RONALDO BE, SLeann (4) on 05/18/2019 6:52:30 PM Referred By: RIA Confirmed By:DR. Juju HIGGINS MD
--- NOTE | 2019-05-18 22:10 | DIS ---
DATE OF ADMISSION: 05/17/2019 DATE OF DISCHARGE: 05/18/2019 RESIDENT: Russel May MD. ADMITTING ATTENDING: Theo Palacio MD DISCHARGE ATTENDING: Lea Alexander MD. CONSULTS: Cardiology, Dr. Fernandez and Dr. Melvin. PROCEDURES: 1. Chest x-ray on 05/15/2019. Stable x-ray with minimal left-sided pleural thickening and probable old healed rib fractures. No acute intrathoracic disease. Atherosclerosis of the aorta. 2. Nuclear medicine stress test on 05/16/2019. No evidence of reversibility, however positive EKG results. Global hypokinesis with 36% ejection fraction. Left ventricular dilation. 3. Heart catheterization by Dr. Melvin on 05/17/2019, with placement of one bare metal stent to the distal obtuse marginal coronary artery. Three of three grafts patent with severe disease in the distal OM graft. PRIMARY DIAGNOSIS: Cardiac chest pain due to severe coronary artery disease. SECONDARY DIAGNOSES: 1. Coronary artery disease, status post 3-vessel CABG and now placement of one bare metal stent. 2. Type 2 diabetes. 3. COPD. 4. Polysubstance abuse. DISCHARGE MEDICATIONS: 1. Plavix 75 mg p.o. daily. 2. Coreg 6.25 mg p.o. b.i.d. 3. Norvasc 5 mg p.o. daily. 4. Hydroxyzine 25 mg p.o. at bedtime p.r.n. 5. Ibuprofen 800 mg p.o. t.i.d. p.r.n. 6. Ventolin inhaler 2 puffs q.4 hours p.r.n. 7. Metformin 1000 mg p.o. b.i.d. 8. Lipitor 40 mg p.o. at bedtime. 9. Aspirin 81 mg p.o. daily. 10. Lisinopril 40 mg p.o. daily. DISCONTINUED MEDICATIONS: None. HISTORY OF PRESENT ILLNESS AND HOSPITAL COURSE: The patient is a 68-year-old male with history significant forcoronary artery disease, treated with 3-vessel CABG, hypertension, excessive tobacco abuse, who presented with a 2-day history of substernal pain. He stated the pain began suddenly while he was sleeping, was not relieved with position or taking any medications that he had at home, but he was unsure of the exact ones. He characterized the pain as sharp, rated 5/10 at initial onset, but relieved with nitroglycerin and morphine in the ED. He said the pain did not radiate and he had no associated nausea, vomiting, diaphoresis, weakness, near syncope, acute changes in vision, or lower extremity edema. In the ED, he was given Nitro-Bid patch and morphine with resolution of his pain. Chest x-ray revealed atherosclerosis of the aorta and no acute changes. EKG revealed a left ventricular hypertrophy with age-indeterminate changes. Thus, it was decided that he be admitted for observation on telemetry and trending of troponins and stress test. Once on the floor, the patient did not have any return of symptoms and was stable throughout the hospitalization. His troponins were trended and negative. His HEART score was 6. Electrolytes were checked as well as TSH which were within normal limits. UDS was obtained that was positive for opiates, amphetamines, and methamphetamines, and a cardiac stress test was obtained that showed the above findings, thus Cardiology was consulted for further evaluation and management. His Toprol was initially held for his stress test and otherwise, his home medications were continued for his chronic medical conditions. Cardiology came and evaluated the patient and recommended cardiac catheterization. Dr. Melvin then took him for cardiac catheterization on 05/17/2019, and placed one bare metal stent and recommended Plavix as well as continuing his aspirin and increasing his Coreg from 3.125 to 6.25. 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 The patient voiced understanding of our discussion. At the time of discharge, the patient was doing well, had no return of symptoms, ambulating well without any difficulties. He was eager to be discharged home and stated he will follow up with his primary care physician as well as mushroom growing supervisor. Cardiac rehab was consulted for outpatient therapy. The above discharge plan was discussed with the patient as well as the medications that he will now be taking. The patient voiced agreement and understanding of the discharge plan, was eager to go home. He was then discharged home to self-care. DISPOSITION: Stable. DISCHARGE INSTRUCTIONS: 1. Location: Home. 2. Diet: Heart healthy, low-sodium. 3. Activity, cardiopulmonary limits. 4. Followup: The patient should follow up with primary care physician within one week and his mushroom growing supervisor, Dr. Melvin as directed. Job ID: [id number]
== END 2019-05-18 14:30 | disposition home or self-care (01) | DRG 249 ==
LOC: ERS 21:28 → 2SW 05-16 00:45 → OBSVTOIN 05-17 08:39 → 2NO 05-17 19:53
PROVIDERS: ADMIT Family Medicine; ATTEND Family Medicine
PROC: 02703DZ Dilation of Coronary Artery, One Artery with Intraluminal Device, Percutaneous Approach (ICD-10-PCS; principal; 2019-05-17)
PROC: 4A023N7 Measurement of Cardiac Sampling and Pressure, Left Heart, Percutaneous Approach (ICD-10-PCS; 2019-05-17)
PROC: B2111ZZ Fluoroscopy of Multiple Coronary Arteries using Low Osmolar Contrast (ICD-10-PCS; 2019-05-17)
DX: I25.10 Atherosclerotic heart disease of native coronary artery without angina pectoris (principal); I50.22 Chronic systolic (congestive) heart failure; N17.9 Acute kidney failure, unspecified; I13.0 Hypertensive heart and chronic kidney disease with heart failure and stage 1 through stage 4 chronic kidney disease, or unspecified chronic kidney disease; E11.9 Type 2 diabetes mellitus without complications; J44.9 Chronic obstructive pulmonary disease, unspecified; F19.10 Other psychoactive substance abuse, uncomplicated; F17.210 Nicotine dependence, cigarettes, uncomplicated; I73.9 Peripheral vascular disease, unspecified; N18.9 Chronic kidney disease, unspecified; E78.00 Pure hypercholesterolemia, unspecified; F12.10 Cannabis abuse, uncomplicated; Z95.1 Presence of aortocoronary bypass graft; I25.2 Old myocardial infarction; Z89.429 Acquired absence of other toe(s), unspecified side
CPT/HCPCS: 36415; 36416; 71045; 78452; 80053; 80061; 80306; 82550; 83735; 83880; 84100; 84443; 84484; 85025; 85347; 92928; 93005; 93010; 93017; 93459; 93798; 94760; 96374; A9500; C1769; C1876; C1887; J0583; J1644; J2001; J2270; J2785; J3010; Q0162; Q9967

== ENCOUNTER 2019-12-19 18:10 | Inpatient (IN) | payer MEDICARE, MEDICAID ==
[2019-12-19] MEDS ORDERED: Aspirin Chewable 81 MG TAB ONE (18:34)
[2019-12-19] MEDS ORDERED: Nitroglycerin 0.4 MG TAB 1 EACH ONE (18:34)
--- NOTE | 2019-12-19 18:39 | RAD ---
RADIOGRAPH CHEST 1 VIEW: DATE: 12/19/2019 HISTORY: 69-year-old male with dyspnea, chest pain, and cough FINDINGS: There are no airspace densities, pulmonary edema, pneumothorax, or cardiomegaly. The lateral costophr enic angles are sharp. IMPRESSION: No acute cardiopulmonary findings.
[2019-12-19 18:49] LABS: #Eosinphils 0.1 thou/uL (0.0-0.7); #Lymphocytes 0.8 thou/uL (1.20-3.40); #Monocytes 0.9 thou/uL (0.11-0.59); #Neutrophils 5.6 thou/uL (1.40-6.50); %Basophils 0.3 % (0.0-1.0); %Eosinophils 0.9 % (0.0-10.0); %Lymphocytes 11.1 % (21.0-51.0); %Monocytes 11.5 % (0.0-10.0); %Neutrophils 76.2 % (42.0-75.0); Hemoglobin 13.7 g/dL (14.0-18.0); Mean Corpuscular HGB CONC 33.5 g/dL (32.0-36.0); Mean Corpuscular Hemoglobin 27.3 pg (27.0-31.0); Mean Corpuscular Volume 81.6 fL (78.0-98.0); Mean Platelet Volume 8.2 fL (7.4-10.4); Platelet Count 386 thou/uL (130-400); RBC Distribution Width 13.2 % (11.5-14.5); Red Blood Cell (RBC) Count 5.01 mill/uL (4.70-6.10); White Blood Cell (WBC) Count 7.4 thou/uL (4.8-10.8)
[2019-12-19 18:55] LABS: PTT 31.7 SEC (22.9-36.1); Prothrombin Time 13.5 SEC (12.0-14.7)
[2019-12-19 19:12] LABS: ALT (SGPT) 20 U/L (8-55); AST (SGOT) 20 U/L (5-34); Albumin 3.9 g/dL (3.4-4.8); Alkaline Phosphatase 115 U/L (40-110); Anion Gap 14 mmol/L (10-20); BUN (Urea Nitrogen) 12 mg/dL (8.4-25.7); Bilirubin, Total 0.3 mg/dL (0.2-1.2); Calc. Creatinine Clearance 0 mL/min (70-130); Calcium 8.8 mg/dL (7.8-10.44); Carbon Dioxide 26 mmol/L (23-31); Chloride 94 mmol/L (98-107); Estimated GFR-MDRD 39; Globulin 2.8 g/dL (2.4-3.5); Glucose 280 mg/dL (80-115); Lipase 49 U/L (8-78); Potassium 4.3 mmol/L (3.5-5.1); Protein, Total 6.7 g/dL (5.8-8.1); Sodium 130 mmol/L (136-145)
[2019-12-19] MEDS ORDERED: cefTRIAXone\\ROCEPHIN 2 GM VIAL ONE (19:20)
[2019-12-19] MEDS ORDERED: Azithromycin 500 MG VIAL ONE (19:20)
[2019-12-19 19:32] LABS: CKMB 1.8 ng/mL (0-6.6)
[2019-12-19] MEDS ORDERED: Ibuprofen 200 MG TAB ONE (20:42)
--- NOTE | 2019-12-19 20:50 | PDOC.FPRHP ---
- History of Present Illness Chief Complaint: SOB History of Present Illness: Pt is a 69 yo male with PMH COPD, HTN, DMII, HLD, tobacco abuse, PVD, GERD, amphetamine abuse, CKD who presented to the emergency department for worsening shortness of breath over the last 1 or 2 weeks. He states during this time he has felt sick, febrile, and just unable to catch his breath. He has a productive cough worse during this period and pleuritic chest pain. He does not wear oxygen at home. He takes symbicort intermittently and has required his albuterol 5-6 times per day w/o much alleviation today. He is a smoker. Of note he has had CAD s/p CABG and has recurrent chest pain. He has not seen cardiology since his procedure. [facility] - [place] ED Course: Pt was noted to have a tmax 102.9. Administered ceftriaxone, azithromycin, and 30 cc/kg, ASA 324, nitro paste. - Allergies/Adverse Reactions Allergies Allergy/AdvReac Type Severity Reaction Status Date / Time No Known Allergies Allergy Verified 12/19/19 22:28 - Home Medications Medication Instructions Recorded Confirmed Type Atorvastatin Calcium [Lipitor] 40 mg PO HS 06/29/18 12/19/19 History Ventolin HFA Inhaler 2 puff INH Q4HR PRN 06/29/18 12/19/19 History metFORMIN [Glucophage] 1,000 mg PO BID-WM 06/29/18 12/19/19 History Aspirin [Ecotrin Low Strength] 81 mg PO DAILY 05/16/19 12/19/19 History Lisinopril 20 mg PO DAILY 05/16/19 12/20/19 History Budesonide/Formoterol Fumarate 2 puff INH DAILY 12/19/19 12/19/19 History [Budesonide-Formoterol 160-4.5] traMADol HCl [Tramadol HCl] 50 mg PO QID PRN 12/19/19 12/19/19 History Amlodipine [Norvasc] 10 mg PO DAILY 12/20/19 12/20/19 History - History PMHx: COPD, HTN, DMII, HLD, tobacco abuse, PVD, GERD, amphetamine abuse, CKD PSHx: CABG 3-V 2012, Sternal abscess 11/26, Pericardial effusion 12/02 FHx: Adopted Social: smokes tobacco, denies alcohol, multiple positive drug screens - Review of Systems General: reports: fever/chills, fatigue. denies: weight/appetite/sleep changes Eyes: denies: eye pain, vision changes ENT: denies: nasal congestion, rhinorrhea Respiratory: reports: cough, congestion, shortness of breath, exercise intolerance Cardiovascular: reports: chest pain. denies: palpitation, edema, paroxysmal nocturnal dyspnea Gastrointestinal: denies: nausea, vomiting, diarrhea, constipation, abdominal pain Genitourinary: denies: incontinence, dysuria Skin: denies: rashes, lesions Musculoskeletal: denies: pain, tenderness Neurological: denies: numbness, syncope Psychological: denies: anxiety, depression - Vital signs BP: 140/69 HR: 91 RR: 24 Tmax: 99.9 Pox: 95% on 3L Wt: 117 kg - Physical Exam Constitutional: awake, alert and oriented -Constitutional: uncomfortable appearing HEENT: PERRLA, EOMI Neck: FROM, trachea midline, no JVD Heart: RRR, normal S1/S2, pulses present, no edema -Lungs: Poor air movement diffusely, diffuse crackles, no wheezing Abdomen: soft, non-tender, bowel sounds present Musculoskeletal: normal structure, ROM grossly normal Neurological: no focal deficit, CN II-XII intact Skin: no rash/lesions, capillary refill <2 seconds Heme/Lymphatic: no purpura, no petechia Psychiatric: normal mood and affect, good judgment and insight FMR H&P: Results - Labs Result Diagrams: 12/20/19 04:22 12/20/19 04:22 Lab results: WBC 7.4 thou/uL (4.8-10.8) 12/19/19 18:21 Hgb 13.7 g/dL (14.0-18.0) L 12/19/19 18:21 Hct 40.9 % (42.0-52.0) L 12/19/19 18:21 MCV 81.6 fL (78.0-98.0) 12/19/19 18:21 Plt Count 386 thou/uL (130-400) 12/19/19 18:21 Neutrophils % 76.2 % (42.0-75.0) H 12/19/19 18:21 Sodium 130 mmol/L (136-145) L 12/19/19 18:21 Potassium 4.3 mmol/L (3.5-5.1) 12/19/19 18:21 Chloride 94 mmol/L (98-107) L 12/19/19 18:21 Carbon Dioxide 26 mmol/L (23-31) 12/19/19 18:21 BUN 12 mg/dL (8.4-25.7) 12/19/19 18:21 Creatinine 1.74 mg/dL (0.7-1.3) H 12/19/19 18:21 Glucose 280 mg/dL (80-115) H 12/19/19 18:21 Lactic Acid 1.8 mmol/L (0.5-2.2) 12/19/19 18:21 Calcium 8.8 mg/dL (7.8-10.44) 12/19/19 18:21 Total Bilirubin 0.3 mg/dL (0.2-1.2) 12/19/19 18:21 AST 20 U/L (5-34) 12/19/19 18:21 ALT 20 U/L (8-55) 12/19/19 18:21 Alkaline Phosphatase 115 U/L (40-110) H 12/19/19 18:21 CK-MB (CK-2) 1.8 ng/mL (0-6.6) 12/19/19 18:21 Serum Total Protein 6.7 g/dL (5.8-8.1) 12/19/19 18:21 Albumin 3.9 g/dL (3.4-4.8) 12/19/19 18:21 Lipase 49 U/L (8-78) 12/19/19 18:21 - EKG Interpretation EKG: No ST changes - Radiology Interpretation Chest x-ray Status: image reviewed by me, report reviewed by me Additional comment: No acute process, flattened diaphragm. Possible interstitial lung markings. FMR H&P: A/P - Problem List (1) Acute on chronic congestive heart failure with left ventricular diastolic dysfunction Current Visit: No Status: Acute Code(s): I50.33 - ACUTE ON CHRONIC DIASTOLIC (CONGESTIVE) HEART FAILURE Comment: EF 50% (2) COPD exacerbation Current Visit: No Status: Acute Code(s): J44.1 - CHRONIC OBSTRUCTIVE PULMONARY DISEASE W (ACUTE) EXACERBATION (3) CHF (congestive heart failure) Current Visit: No Status: Chronic Code(s): I50.9 - HEART FAILURE, UNSPECIFIED Qualifiers: Heart failure type: systolic (4) COPD (chronic obstructive pulmonary disease) Current Visit: No Status: Chronic Qualifiers: COPD type: emphysema (5) Diabetes type 2, uncontrolled Current Visit: No Status: Chronic Code(s): E11.65 - TYPE 2 DIABETES MELLITUS WITH HYPERGLYCEMIA (6) Hx of CABG Current Visit: No Status: Chronic (7) Hyperlipidemia Current Visit: No Status: Chronic Code(s): E78.5 - HYPERLIPIDEMIA, UNSPECIFIED (8) Hypertension Current Visit: No Status: Chronic Code(s): I10 - ESSENTIAL (PRIMARY) HYPERTENSION (9) Noncompliance Current Visit: No Status: Chronic Code(s): Z91.19 - PATIENT'S NONCOMPLIANCE W OTH MEDICAL TREATMENT AND REGIMEN - Plan Pt is a 69 yo male who presents for: # Acute Hypoxic Respiratory Failure Likely secondary to acute COPD vs viral infection. Not likely coronavirus as pt as not contacts or recent travel. - ABG pending - O2 as needed to maintain 88%-92% - duonebs scheduled q4hr and q2h prn - prednisone 40 mg daily - Levaquin for pseudomonal coverage q48hrs with kidney dysfunction and decreased creatinine clearance - continue home symbicort - tessalon perle for cough - RVP panel - influenza negative # COPD - as above - continue home meds # HFrEF, EF 25% 05/17/19 - will need to consider beta argelia for depressed EF but will need COPD exacerbation to resolve first - Could be contributing to respiratory status, BNP 404 - Patient had stress test done 05/2019 with showed global hypokenesis with EF 36% # DM - continue metformin but can consider holding with kidney function - a1c pending # HTN - continue home meds # Tobacco abuse - encourage cessation # GERD - continue home meds # MELODY on CKD Stage III - monitor, CrCl 31 - 30 cc/kg administered in ED # Indeterminate trop # CAD, CABG Pt endorsed chest pain but appears pleuritic in nature. Monitor chest pain - continue home meds # Hx of Positive Drug Screens - UDS pending Fluids: SL Diet: CC, HH, Low sodium VTE: lovenox Code: DNI Dispo: Admit to tele with close monitoring of respiratory status FMR H&P: Upper Level - Pertinent history 69 year old male with PMH significant for COPD, CAD, DM2 presents with a 1-2 week period of shortness of breath, fever, chest discomfort worse with coughing. Cough productive of yellow sputum. Patient endorses body aches. Patient tolerating PO fine. He endorses associated dyspnea, particularly with ambulation, but denies otrhopnea and PND. Patient using albuterol 4-5 times per day with no significant improvement. He uses symbicort PRN instead of daily. Patient denies being around sick contacts. He states that he does not travel and has not in several years. - Pertinent findings General: Alert and oriented x3. Mild respiratory distress. HEENT: Diaphoretic Card: RRR, 3/6 systolic murmur Resp: Bibasilar crackles, decreased/poor air movement throughout, Mild respiratory distress Abd: Soft, non-distended Ext: 1+ pitting edema of bilateral lower extremities - Plan Date/Time: 12/19/192049 I, Janee Armstrong, have evaluated this patient and agree with findings/plan as outlined by r d internship resident. Pertinent changes/additions are listed here. Acute hypoxic respiratory failure 2/2 suspected COPD exacerbation - Febrile to 102F, cough productive yellow sputum, wheezing - Moderate to severe COPD exacerbation based on symptoms with comorbid conditions that put at risk for poor outcomes, thus will use respiratory fluoroquinolone for antibiotic coverage - CXR with on focal consolidations - Duonebs q4h - Prednisone 40 mg qd x5 days - Levoquin 750 mg q48h given CrCl of 31 - O2 sats between 88-92% - Will obtain baseline ABG - Assess need for increased respiratory support, may benefit from BiPAP - Rapid influenza swab negative, but symptoms consistent with coexisting viral syndrome; will obtain RVP to further evaluate - DVT ppx with lovenox - Will obtain procalcitonin to further evaluate - Patient without recent travel, no sick contacts, and symptoms that could be explained by underlying COPD. RVP will help to further evaluate possibility of underlying viral infection. Suspect acute on chronic HFrEF - Will obtain BNP - CXR with interstitial markings and auscultation revealed bibasilar crackles - May be contributing to acute hypoxic respiratory failure - Patient had stress test done 05/2019 with showed global hypokenesis with EF 36% - Patient with coexisting infection, will balance fluids with intake/output as appropriate - Will order echo as there is none documented since 2017 and recent stress with EF 36% - EF on cardiac cath 05/17/2019 was 25% - Patient not on BB, which may be 2/2 COPD, but may benefit from trial given extensive CAD and HFrEF - Continue CHINMAY-I, ASA, Statin MELODY vs CKD stage 3A - CrCl 31 mL/min - Patient fluid resuscitated in ED 30 mL/kg bolus - Tolerating PO - Given increased respiratory effort, patient does have erroneous losses, will continue to monitor - Avoid nephrotoxic agents DM type II - Continue home medications; Baseline GFR 45-50 - May consider holding metormin given current renal function; although recent data suggests this may not be necessary - SSI - ACHS accuchecks - CC diet - Will obtain HgA1c to further evaluate as last drawn in clinic in Jun 2019 Hx of amphetamine/methamphetamine abuse - Has been positive nearly every time he has been seen here - Will check UDS as this could cloud picture HLD - Continue statin Tobacco abuse - Counseled on cessation - Nicotine patch PRN Hx CVA and PVD GERD - Famotidine Mild chronic hyponatremia - Na 130 - Continue to monitor DVT PPX: Lovenox GI PPX: Pepcid Code Status: Full Code Dispo: Admit to telemetry. Anticipate LOS >48 hours. Addendum - Attending - Attending Attestation Date/Time: 12/20/191917 I personally evaluated the patient and discussed the management with Dr. Monson and Nathaniel. I agree with the History, Examination, Assessment and Plan documented above with any addition or exceptions noted below. CPOD exascerbation with possible pneumonia. Antibx coverage and steroid therapy initiated.
[2019-12-19 20:56] LABS: Troponin I 0.062 ng/mL (< 0.028)
[2019-12-19] MEDS ORDERED: Dextrose 5% in Water 1,000 ML IV PRN (23:13)
[2019-12-19] MEDS ORDERED: Dextrose 50% Abboject 50 ML SYRINGE SLOW IVP PRN (23:13)
[2019-12-19] MEDS ORDERED: PROVENTIL INHALER 6.7 G (200 INHALATIONS) INH PRN (23:14)
[2019-12-19] MEDS ORDERED: Acetaminophen 325 MG TAB PO PRN (23:30)
[2019-12-19 23:36] VITALS: BMI 32.4
[2019-12-20] MEDS: HumaLOG 300 UNITS/3 ML VIAL SC PRN ×4 (00:25→20:53)
[2019-12-20] MEDS: traMADol HCl 50 MG TAB PO PRN ×3 (00:27→17:36)
[2019-12-20 00:50] LABS: Hemoglobin A1c 9.5 % (4.0-6.0)
[2019-12-20 00:58] LABS: Actual Bicarbonate (HCO3a) 23.4 mEq/L (22-28); Base Excess (BEa) -0.6 mEq/L (-2.0 to +3.0); Carboxyhemoglobin (COHb) 0.8 gm% (0.0-3.0); Hemoglobin (Hb) 12.2 g/dL (14.0-18.0); O2 Tension (PaO2) 79.1 mmHg (> 80.0); pH, Arterial 7.43 (7.35-7.45)
[2019-12-20] MEDS: Benzonatate 100 MG CAP PO PRN ×2 (00:59→15:21)
[2019-12-20 01:00] LABS: Puncture Site RRADIAL
[2019-12-20 01:09] LABS: Troponin I 0.063 ng/mL (< 0.028)
[2019-12-20 02:38] LABS: Amphetamine Detected (NotDetected); Cocaine Metabolite Screen Not Detected (NotDetected); Medtox Reader # READER 4; Methamphetamine Detected (NotDetected); Opiate Screen Not Detected (NotDetected); Phencyclidine (PCP) Not Detected (NotDetected); THC/Cannabinoid Screen Not Detected (NotDetected)
[2019-12-20 02:39] LABS: Barbiturates Screen Not Detected (NotDetected); Benzodiazepine Screen Not Detected (NotDetected); Medtox Control Line Valid? VALID (VALID); Methadone Not Detected (NotDetected); Oxycodone Screen Not Detected (NotDetected); Tricyclic Screen Not Detected (NotDetected)
[2019-12-20 05:06] LABS: Band 7 % (5-11); Eosinophils 2 % (0-10); Hemoglobin 11.8 g/dL (14.0-18.0); Hypochromia SLIGHT = 6-15 cells (100X) (0-5/hpf); Lymphocytes 22 % (21-51); MDiff Complete? YES; Mean Corpuscular Hemoglobin 28.1 pg (27.0-31.0); Mean Corpuscular Volume 82.7 fL (78.0-98.0); Mean Platelet Volume 7.8 fL (7.4-10.4); Monocytes 9 % (0-10); Neutrophil 60 % (42-75); Platelet Count 303 thou/uL (130-400); Platelet Morphology Comment Appears Adequate; RBC Distribution Width 13.1 % (11.5-14.5); White Blood Cell (WBC) Count 5.9 thou/uL (4.8-10.8)
[2019-12-20 05:09] LABS: Anion Gap 9 mmol/L (10-20); BUN (Urea Nitrogen) 11 mg/dL (8.4-25.7); Calc. Creatinine Clearance 76 mL/min (70-130); Calcium 8.2 mg/dL (7.8-10.44); Carbon Dioxide 30 mmol/L (23-31); Chloride 100 mmol/L (98-107); Estimated GFR-MDRD 47; Glucose 113 mg/dL (80-115); Potassium 3.4 mmol/L (3.5-5.1); Sodium 136 mmol/L (136-145)
--- NOTE | 2019-12-20 05:47 | PDOC.FM ---
- Subjective Subjective: T max 102.9 F Pt admits to taking symbicort off/on. Pt c/o SOB, and cough. Denies any chest pain. - Objective MAR Reviewed: Yes Vital Signs & Weight: Vital Signs (12 hours) Temp Pulse Resp BP Pulse Ox 12/20/19 03:30 97.9 F 61 18 134/68 12/20/19 00:53 69 20 96 12/19/19 23:30 97.8 F 64 20 134/100 H 94 L Weight Weight 114.532 kg Result Diagrams: 12/20/19 04:22 12/20/19 04:22 Phys Exam - Physical Examination Constitutional: NAD HEENT: moist MMs, sclera anicteric Neck: no nodes, full ROM Respiratory: wheezing present (wheezing present all lung marroquin ) Cardiovascular: RRR, no rub Gastrointestinal: soft, non-tender, no distention, positive bowel sounds Musculoskeletal: no edema, pulses present Neurological: non-focal, moves all 4 limbs Psychiatric: normal affect, A&O x 3 Skin: no rash, normal turgor Dx/Plan (1) Acute respiratory failure with hypoxia Code(s): J96.01 - ACUTE RESPIRATORY FAILURE WITH HYPOXIA Status: Acute (2) MELODY (acute kidney injury) Code(s): N17.9 - ACUTE KIDNEY FAILURE, UNSPECIFIED Status: Acute (3) COPD exacerbation Code(s): J44.1 - CHRONIC OBSTRUCTIVE PULMONARY DISEASE W (ACUTE) EXACERBATION Status: Acute (4) Diabetes type 2, uncontrolled Code(s): E11.65 - TYPE 2 DIABETES MELLITUS WITH HYPERGLYCEMIA Status: Chronic (5) Drug abuse Code(s): F19.10 - OTHER PSYCHOACTIVE SUBSTANCE ABUSE, UNCOMPLICATED Status: Chronic (6) Hx of CABG Status: Chronic (7) Hyperlipidemia Code(s): E78.5 - HYPERLIPIDEMIA, UNSPECIFIED Status: Chronic - Plan Plan: Pt is a 69 yo male who presents for: # Acute Hypoxic Respiratory Failure Likely secondary to acute COPD vs viral infection. Not likely coronavirus as pt has no sick contacts or recent travel. - ABG showed no CO2 retention, although pt was tachypneic - O2 as needed to maintain 88%-92% - duonebs scheduled q4hr and q2h prn - prednisone 40 mg daily - Levaquin for pseudomonal coverage q48hrs with kidney dysfunction and decreased creatinine clearance. Procal 0.53 - continue home symbicort - tessalon pearls for cough - RVP panel pending - influenza negative # COPD exacerbation likely 2/2 viral syndrome - as above - continue home meds # HFrEF, EF 25% 05/17/19 - will need to consider beta argelia for depressed EF but will need COPD exacerbation to resolve first - Could be contributing to respiratory status, BNP 404 - Patient had stress test done 05/2019 with showed global hypokenesis with EF 25% , will repeat echo. 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 # HTN - continue home meds # Tobacco abuse - encourage cessation # GERD - continue home meds # MELODY on CKD Stage III - monitor, CrCl 31. Cr improved from 1.74-> 1.5 after IVF's. - 30 cc/kg administered in ED # Indeterminate trop # CAD, CABG Pt endorsed chest pain but appears pleuritic in nature. Monitor chest pain, no CP this AM. - continue home meds Fluids: SL Diet: CC, HH, Low sodium VTE: lovenox Code: DNI Dispo: Admit to tele with close monitoring of respiratory status Addendum - Attending - Attending Attestation Date/Time: 12/20/19 1301 I personally evaluated the patient and discussed the management with Dr. Portillo. I agree with the History, Examination, Assessment and Plan documented above with any addition or exceptions noted below. Patient here for hypoxia in setting of COPD exacerbation. Continue symptomatic treatment and med optimization.
[2019-12-20] MEDS ORDERED: Potassium Chloride 20 MEQ TAB PO SCH (06:00)
[2019-12-20] MEDS: Mometasone/Formoterol 120 PUFF INHALER INH SCH (06:58)
[2019-12-20] MEDS ORDERED: metFORMIN 500 MG TAB PO SCH (08:00)
[2019-12-20] MEDS ORDERED: Lisinopril 20 MG TAB PO SCH (09:00)
[2019-12-20] MEDS: Aspirin 81 mg Enteric Coated Tablet PO SCH (10:08)
[2019-12-20] MEDS: Enoxaparin Sodium 40 MG/0.4 ML SYRINGE SC SCH (10:08)
[2019-12-20] MEDS: metFORMIN XR 500 MG TAB PO SCH ×2 (10:09→20:53)
[2019-12-20] MEDS: Amlodipine 10 MG TAB PO SCH (10:09)
[2019-12-20] MEDS: Famotidine 20 MG TAB PO SCH (10:09)
[2019-12-20] MEDS: predniSONE 20 MG TAB PO SCH (10:10)
[2019-12-20] MEDS: Lisinopril 20 MG TAB PO SCH (10:10)
[2019-12-20] MEDS ORDERED: Atorvastatin Calcium 40 MG TAB PO SCH (21:00)
[2019-12-20] MEDS ORDERED: FLU VACC TS2019-20(65YR UP)/PF 180 MCG/0.5 ML SYRINGE IM ONE (21:00)
[2019-12-21] MEDS: traMADol HCl 50 MG TAB PO PRN (04:21)
[2019-12-21] MEDS: Benzonatate 100 MG CAP PO PRN (04:22)
[2019-12-21 04:56] LABS: Band 3 % (5-11); Eosinophils 1 % (0-10); Hemoglobin 11.8 g/dL (14.0-18.0); Lymphocytes 11 % (21-51); MDiff Complete? YES; Mean Corpuscular HGB CONC 32.2 g/dL (32.0-36.0); Mean Corpuscular Hemoglobin 26.6 pg (27.0-31.0); Mean Corpuscular Volume 82.6 fL (78.0-98.0); Mean Platelet Volume 8.1 fL (7.4-10.4); Metamyelocyte 1 % (0-0); Monocytes 4 % (0-10); Neutrophil 80 % (42-75); Platelet Count 371 thou/uL (130-400); Platelet Morphology Comment Appears Adequate; RBC Distribution Width 13.3 % (11.5-14.5); Red Blood Cell (RBC) Count 4.46 mill/uL (4.70-6.10); White Blood Cell (WBC) Count 7.9 thou/uL (4.8-10.8)
[2019-12-21 05:04] LABS: Anion Gap 15 mmol/L (10-20); BUN (Urea Nitrogen) 17 mg/dL (8.4-25.7); Calc. Creatinine Clearance 78 mL/min (70-130); Carbon Dioxide 25 mmol/L (23-31); Chloride 101 mmol/L (98-107); Estimated GFR-MDRD 48; Glucose 266 mg/dL (80-115); Potassium 3.8 mmol/L (3.5-5.1); Sodium 137 mmol/L (136-145)
--- NOTE | 2019-12-21 06:27 | PDOC.FM ---
- Subjective Subjective: tele monitoring: sinus 60-100's, few pac's upon arrival to floor. Pt states he is doing much better, with less SOB and coughing from yesterday. Pt c/o pain in lower abdomen associated with coughing. - Objective MAR Reviewed: Yes Vital Signs & Weight: Vital Signs (12 hours) Temp Pulse Resp BP BP Pulse Ox 12/21/19 05:07 140/67 12/21/19 04:09 97.2 F L 85 20 176/77 H 94 L 12/21/19 03:37 91 L 12/21/19 00:08 82 150/65 H 12/20/19 23:38 91 L 12/20/19 19:30 97.9 F 72 20 121/65 97 12/20/19 19:15 91 L 12/20/19 19:14 91 L Weight Weight 114.532 kg I&O: 12/19/19 12/20/19 12/21/19 06:59 06:59 06:59 Intake Total 1050 Output Total 750 Balance 300 Result Diagrams: 12/21/19 04:22 12/21/19 04:22 Phys Exam - Physical Examination Constitutional: NAD HEENT: moist MMs, sclera anicteric Neck: no JVD, full ROM Respiratory: wheezing present (slight wheezign present throughout ) Cardiovascular: RRR, no significant murmur Gastrointestinal: soft, non-tender, no distention Musculoskeletal: no edema, pulses present Neurological: non-focal, moves all 4 limbs Psychiatric: normal affect Skin: no rash, cap refill <2 seconds Dx/Plan (1) Acute respiratory failure with hypoxia Code(s): J96.01 - ACUTE RESPIRATORY FAILURE WITH HYPOXIA Status: Acute (2) MELODY (acute kidney injury) Code(s): N17.9 - ACUTE KIDNEY FAILURE, UNSPECIFIED Status: Acute (3) COPD exacerbation Code(s): J44.1 - CHRONIC OBSTRUCTIVE PULMONARY DISEASE W (ACUTE) EXACERBATION Status: Acute (4) Diabetes type 2, uncontrolled Code(s): E11.65 - TYPE 2 DIABETES MELLITUS WITH HYPERGLYCEMIA Status: Chronic (5) Drug abuse Code(s): F19.10 - OTHER PSYCHOACTIVE SUBSTANCE ABUSE, UNCOMPLICATED Status: Chronic (6) Hx of CABG Status: Chronic (7) Hyperlipidemia Code(s): E78.5 - HYPERLIPIDEMIA, UNSPECIFIED Status: Chronic - Plan Plan: Pt is a 69 yo male who presents for: # Acute Hypoxic Respiratory Failure, improving Likely secondary to acute COPD vs viral infection. Not likely coronavirus as pt has no sick contacts or recent travel. - ABG showed no CO2 retention, although pt was tachypneic - O2 as needed to maintain 88%-92% - duonebs scheduled q4hr and q2h prn - prednisone 40 mg daily - Levaquin for pseudomonal coverage q48hrs with kidney dysfunction and decreased creatinine clearance. Procal 0.53 - continue home symbicort - tessalon pearls for cough - RVP panel negative - influenza negative # COPD exacerbation likely 2/2 viral syndrome, improving - as above - continue home meds # HFrEF, EF 25% 05/17/19 - will need to consider beta argelia for depressed EF but will need COPD exacerbation to resolve first - Could be contributing to respiratory status, BNP 404 - Patient had stress test done 05/2019 with showed global hypokenesis with EF 25% , will repeat echo. - Echo taken, results pending. 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 - restarted metformin. - ACHS accuchecks, SSI insulin # HTN - continue home meds # Tobacco abuse - encourage cessation # GERD - continue home meds # MELODY on CKD Stage III - monitor, CrCl 31. Cr improved from 1.74-> 1.5 after IVF's. - 30 cc/kg administered in ED # Indeterminate trop # CAD, CABG Pt endorsed chest pain but appears pleuritic in nature. Monitor chest pain, no CP this AM. - continue home meds Fluids: SL Diet: CC, HH, Low sodium VTE: lovenox Code: DNI Dispo: Admit to tele with close monitoring of respiratory status Addendum - Attending - Attending Attestation Date/Time: 12/21/19 3558 I personally evaluated the patient and discussed the management with Dr. Portillo. I agree with the History, Examination, Assessment and Plan documented above with any addition or exceptions noted below. Patient improving from his COPD exacerbation. Continue to wean O2 as tolerated. Continue abx, steroids, neb treatments. Ambulate frequently. Suspect this was triggered by his chronic meth abuse.
[2019-12-21] MEDS: Mometasone/Formoterol 120 PUFF INHALER INH SCH (07:19)
[2019-12-21] MEDS ORDERED: traMADol HCl 50 MG TAB PO PRN (08:15)
[2019-12-21] MEDS: Aspirin 81 mg Enteric Coated Tablet PO SCH (11:04)
[2019-12-21] MEDS: metFORMIN XR 500 MG TAB PO SCH (11:04)
[2019-12-21] MEDS: Enoxaparin Sodium 40 MG/0.4 ML SYRINGE SC SCH (11:05)
[2019-12-21] MEDS: Lisinopril 20 MG TAB PO SCH (11:05)
[2019-12-21] MEDS: Famotidine 20 MG TAB PO SCH (11:05)
[2019-12-21] MEDS: predniSONE 20 MG TAB PO SCH (11:06)
[2019-12-21] MEDS: Amlodipine 10 MG TAB PO SCH (11:08)
[2019-12-21 15:33] VITALS: BP 133/62; TEMP 97.4
--- NOTE | 2019-12-21 19:27 | PDOC.BPN ---
- Brief Progress Note echo results: EF 30-35%, LV mildly increased in size, diastolic dysfunction, and LA mod dilated. Pt was meth and amphetamine + upon admission and this is a contraindication to HF clinic treatment. recommending d/c on 3.125 coreg BID, to be titrated up in outpt setting by PCP, Dr. Llamas at [facility]. PCP will initiate out pt cards referral. Pt d/c'd after respirotry status back to baseline and improved from COD exacerbation. d/c's on levaquin and prednisone.
--- NOTE | 2019-12-22 09:58 | DIS ---
DATE OF ADMISSION: 12/19/2019 DATE OF DISCHARGE: 12/21/2019 ADMITTING ATTENDING: Agusto Castillo MD. DISCHARGE ATTENDING: Chico Colvin MD. CONSULTS: None. PROCEDURES: None. DISCHARGE MEDICATIONS: 1. Coreg 3.125 mg p.o. b.i.d. 2. Levaquin 750 mg p.o. daily, 4 tabs. 3. Metformin 1000 mg p.o. b.i.d. 4. Prednisone 40 mg p.o. daily. 5. Aspirin 81 mg p.o. daily. 6. Lipitor 40 mg p.o. at bedtime. 7. Dulera inhaler 2 puffs inhaled daily. 8. DuoNeb. 9. Lisinopril 20 mg p.o. daily. 10. Tramadol 50 mg p.o. q.i.d. 11. Ventolin inhaler 2 puffs p.r.n. HISTORY OF PRESENT ILLNESS/HOSPITAL COURSE: The patient is a 69-year-old male with history of COPD, CKD stage 3, heart failure with reduced ejection fraction, coming in with a couple of day history of shortness of breath, cough, and sputum production. The patient was diagnosed with acute hypoxic respiratory failure secondary to COPD exacerbation, most likely from a viral syndrome. He was placed on Levaquin, prednisone and DuoNeb and showed marked improvement during his time in the hospital. His procalcitonin was originally 0.53, which decreased to 0.29. He was 94% on room air on day of discharge back to his baseline oxygenation. The patient's A1c was 9.7. He has not been taking his metformin consistently. We are recommending restarting these medications at the time. He was also found to be meth positive and this was the reason why he could not be seen at the [facility]. His echo showed an EF of 30% to 35%, which is up from 25% few months ago with left ventricle mildly dilated, diastolic dysfunction and left atrium moderately dilated. It is recommended that this patient see a electrician helper automotive in outpatient setting. DISPOSITION: Stable upon discharge. DISCHARGE INSTRUCTIONS: 1. Location: Home. 2. Diet: Heart healthy. 3. Activity: As tolerated. 4. Followup: Follow up with Dr. Llamas in 1 week. Job ID: [id number]
--- NOTE | 2019-12-22 13:38 | PDOC.BPN ---
- Brief Progress Note Pt was positive for meth and amphetamine during this hospitalization, current contraindication to life vest and AICD for treatment of his HFrEF. Recommending f/u outpt with cardiology and cessation of drug use.
--- NOTE | 2019-12-23 07:03 | PQF ---
RYAN PORTILLO JASON MD [id number] CLINICAL DOCUMENTATION CLARIFICATION FORM: POST DISCHARGE Addendum to original discharge summary date: ____ Late entry note date: __ DATE:12/23/2019 ATTN:Chico Escudero Please exercise your independent, professional judgment in responding to the clarification form. Clinical indicators are provided on the bottom of this form for your review Please check appropriate box(s) to clarify if the following diagnosis has been ruled in or ruled out: Sepsis [ ] Ruled in diagnosis [ ] Continue to treat [ ] Resolved [ X] Ruled out diagnosis [ ] Cannot rule out diagnosis [ ] Other diagnosis [ ] Unable to determine For continuity of documentation, please document condition throughout progress notes and discharge summary. Thank You. CLINICAL INDICATORS - SIGNS / SYMPTOMS / LABS Laboratory 12/18 WBC 7.4. Neutrophils 76.2, plt cound 386, Lactic Acid 1.8, Procalcitonin 0.53 Microbiology 12/18 Negative RSV and Influenza Vital signs 12/18 BP 114/88, Pulse 101, Resp 28, Temp 102.9 ED notes p2 12/18 SIRS Scoring: Pt meet sepsis criteria ED notes p9 12/18 Pt initially presents for chest pain but also has a fever inactivated per sepsis protocol FM H&P p1 12/18 Dr Monson presented to ED for worsening SOB over the last 1 or 2 weeks. He states during this time he has felt sick, febrile and just unable to catch his breath FM H&P p5 12/18 Dr Monson Acute Hypoxic Respiratory Failure likely secondary to acute COPD vs Viral infection. Not likely coronavirus as pt as not contacts or recent travel FM H&P p6 12/18 Dr Monson MELODY on CKD stage III Discharge summary p1 12/20 Dr Portillo The pt was diagnosed with acute hypoxic respiratory failure secondary to COPD exacerbation, most likely from a viral syndrome RISK FACTORS FM H&P p1 12/18 69 year old male FM H&P p1 12/18 COPD FM H&P p1 12/18 HTN FM H&P p1 12/18 DM FM H&P p1 12/18 HLD FM H&P p1 12/18 Tobacco abuse FM H&P p1 12/18 CKD FM H&P p4 12/18 CHF exacerbation TREATMENTS DEC 13 Duoneb 2mg neb DEC 13 IV Levofloxacin 750 mg DEC 13 IV Rocephin 2gm DEC 13 IVF NS bolus 1L DEC 13 -IV Zithromax 500mg DEC 13 Dulera 2puff Inhaler DEC 13 Prednisone 40mg po Flu and Respiratory Virus Panel ordered 12/18 ED notes p2 12/18 Sepsis protocol (This form is maintained as a part of the permanent medical record) 2014 [employer], [employer] All Rights Reserved [email or web address]
== END 2019-12-21 20:04 | disposition home or self-care (01) | DRG 865 ==
LOC: ERS 18:10 → 2NO 19:51
PROVIDERS: ADMIT Family Medicine; ATTEND Family Medicine
DX: B34.9 Viral infection, unspecified (principal); I50.33 Acute on chronic diastolic (congestive) heart failure; J96.01 Acute respiratory failure with hypoxia; N17.9 Acute kidney failure, unspecified; E87.1 Hypo-osmolality and hyponatremia; I13.0 Hypertensive heart and chronic kidney disease with heart failure and stage 1 through stage 4 chronic kidney disease, or unspecified chronic kidney disease; J43.9 Emphysema, unspecified; F17.200 Nicotine dependence, unspecified, uncomplicated; E11.22 Type 2 diabetes mellitus with diabetic chronic kidney disease; E11.65 Type 2 diabetes mellitus with hyperglycemia; N18.3 Chronic kidney disease, stage 3 (moderate); E78.5 Hyperlipidemia, unspecified; I25.10 Atherosclerotic heart disease of native coronary artery without angina pectoris; K21.9 Gastro-esophageal reflux disease without esophagitis; F15.10 Other stimulant abuse, uncomplicated; I25.2 Old myocardial infarction; Z95.1 Presence of aortocoronary bypass graft; Z91.19 Patient's noncompliance with other medical treatment and regimen; Z79.899 Other long term (current) drug therapy; Z79.51 Long term (current) use of inhaled steroids; Z79.82 Long term (current) use of aspirin
CPT/HCPCS: 36415; 36416; 71045; 80048; 80053; 80306; 82553; 82805; 83036; 83605; 83690; 83880; 84145; 84484; 85007; 85025; 85027; 85610; 85730; 87040; 87633; 87804; 93005; 93306; 93798; 94640; 96365; 96366; 96368; J0456; J0696; J1650; J1956; J7512; J7620

== ENCOUNTER 2019-12-24 20:16 | Observation (INO) | payer MEDICARE, MEDICAID ==
[2019-12-24 20:41] LABS: #Eosinphils 0.2 thou/uL (0.0-0.7); #Lymphocytes 1.1 thou/uL (1.20-3.40); #Monocytes 0.4 thou/uL (0.11-0.59); #Neutrophils 15.5 thou/uL (1.40-6.50); %Basophils 0.2 % (0.0-1.0); %Eosinophils 1.3 % (0.0-10.0); %Lymphocytes 6.2 % (21.0-51.0); %Monocytes 2.5 % (0.0-10.0); %Neutrophils 89.8 % (42.0-75.0); Mean Corpuscular HGB CONC 32.7 g/dL (32.0-36.0); Mean Corpuscular Hemoglobin 26.8 pg (27.0-31.0); Mean Corpuscular Volume 81.9 fL (78.0-98.0); Mean Platelet Volume 7.4 fL (7.4-10.4); Platelet Count 551 thou/uL (130-400); RBC Distribution Width 13.7 % (11.5-14.5); Red Blood Cell (RBC) Count 5.24 mill/uL (4.70-6.10); White Blood Cell (WBC) Count 17.2 thou/uL (4.8-10.8)
--- NOTE | 2019-12-24 20:46 | RAD ---
Portable frontal chest radiograph: 12/24/2019 COMPARISON: 12/19/2019 HISTORY: Chest pain with shortness of breath FINDINGS: Heart and mediastinal contours are stable. Mild increased linear interstitial density. No p neumothorax or pleural fluid. No focal consolidation or alveolar edema. IMPRESSION: No acute findings.
[2019-12-24 21:04] LABS: ALT (SGPT) 19 U/L (8-55); AST (SGOT) 18 U/L (5-34); Albumin 3.7 g/dL (3.4-4.8); Alkaline Phosphatase 96 U/L (40-110); Anion Gap 15 mmol/L (10-20); BUN (Urea Nitrogen) 20 mg/dL (8.4-25.7); Bilirubin, Total 0.5 mg/dL (0.2-1.2); Calc. Creatinine Clearance 0 mL/min (70-130); Calcium 9.4 mg/dL (7.8-10.44); Carbon Dioxide 25 mmol/L (23-31); Chloride 97 mmol/L (98-107); Estimated GFR-MDRD 43; Globulin 3.3 g/dL (2.4-3.5); Glucose 245 mg/dL (80-115); Potassium 4.5 mmol/L (3.5-5.1); Sodium 132 mmol/L (136-145)
[2019-12-24] MEDS ORDERED: Aspirin Chewable 81 MG TAB ONE (21:04)
[2019-12-24] MEDS ORDERED: Nitroglycerin 0.4 MG TAB 1 EACH ONE (21:04)
[2019-12-24] MEDS ORDERED: Enoxaparin Sodium 60 MG/0.6 ML SYRINGE ONE ×2 (21:29→21:31)
--- NOTE | 2019-12-24 21:34 | PDOC.FPRHP ---
- History of Present Illness Chief Complaint: chest pain History of Present Illness: Patient is a 69M with PMHx of COPD, HFrEF and HFpEF, HTN, DMII, HLD, tobacco abuse, PVD, GERD, amphetamine and meth abuse, CKD, and recent hospital admission for likely COPD exacerbation who presented to the emergency department for worsening chest pain and sob since yesterday. Patient reports that his chest pain and sob have been intermittent for the last few days since his recent hospitalization. Reports his chest pain is sharp, left -sided in the upper left chest. He reports that it can occur at rest, and at times the pain radiates to his left jaw. Denies radiation to his arm. Cardiac hx: cardiact stents placed 6 months ago. NH in 2009, 3-v CABG at that time. Hx of drug abuse: UDS + for meth and amphetamines on 12/18 ED Course: 50mcg fentanyl, lovenox 1mg/kg, 500ml NS, 0,4mg SL nitro, 324mg asa - Allergies/Adverse Reactions Allergies Allergy/AdvReac Type Severity Reaction Status Date / Time No Known Allergies Allergy Verified 12/24/19 23:45 - Home Medications Medication Instructions Recorded Confirmed Type Atorvastatin Calcium [Lipitor] 40 mg PO HS 06/29/18 12/25/19 History Ventolin HFA Inhaler 2 puff INH Q4HR PRN 06/29/18 12/25/19 History metFORMIN [Glucophage] 1,000 mg PO BID-WM 06/29/18 12/25/19 History Aspirin [Ecotrin Low Strength] 81 mg PO DAILY 05/16/19 12/25/19 History Lisinopril 20 mg PO BID 05/16/19 12/25/19 History Budesonide/Formoterol Fumarate 2 puff INH DAILY 12/19/19 12/25/19 History [Budesonide-Formoterol 160-4.5] traMADol HCl [Tramadol HCl] 50 mg PO QID PRN 12/19/19 12/25/19 History Amlodipine [Norvasc] 10 mg PO DAILY 12/20/19 12/25/19 History Carvedilol [Coreg] 3.125 mg PO BID #60 tab 12/21/19 12/25/19 Rx Ipratropium/Albuterol Sulfate 3 ml NEB [id number] PRN neb 12/21/19 12/25/19 Rx [DuoNeb] Levofloxacin [Levaquin] 750 mg PO Q2DAYS #4 tab 12/21/19 12/25/19 Rx predniSONE 40 mg PO DAILY #10 tab 12/21/19 12/25/19 Rx - History PMHx:COPD, HFrEF and HFpEF, HTN, DMII, HLD, tobacco abuse, PVD, GERD, amphetamine and meth abuse, CKD, and recent hospital admission for likely COPD exacerbation PSHx: r finger sx, L wrist sx, CABG 3-V 2012, Sternal abscess 11/26, Pericardial effusion 12/02, tonsillectomy, amputation L great toe FHx: Adopted Social: smokes tobacco, denies alcohol, multiple positive drug screens, most recent 12/18 positive for meth and amphetamines - Review of Systems General: denies: fever/chills, weight/appetite/sleep changes Eyes: denies: eye pain, vision changes ENT: denies: nasal congestion, rhinorrhea Respiratory: reports: cough (productive of yellow sputum), shortness of breath Cardiovascular: reports: chest pain. denies: edema Gastrointestinal: denies: nausea, vomiting, diarrhea Genitourinary: denies: dysuria, polyuria Skin: denies: lesions, jaundice Musculoskeletal: denies: pain, stiffness Neurological: denies: numbness, syncope Psychological: denies: depression - Vital signs BP: [131/61] HR: [63] RR: [18] Tmax: [98.1] Pox: [93]% on [RA] Wt: [113.5kg] - Physical Exam Constitutional: NAD, awake, alert and oriented HEENT: EOMI, MMM Neck: supple, FROM Chest: no lesions Heart: RRR, normal S1/S2 Lungs: CTAB, no respiratory distress Abdomen: soft, non-tender Musculoskeletal: ROM grossly normal, other (toes missing on L foot) Neurological: no focal deficit Skin: other (blister on R toe, oozing; bruzing and scratches both shins) Heme/Lymphatic: no unusual bruising or bleeding, no purpura Psychiatric: normal mood and affect, good judgment and insight FMR H&P: Results - Labs Result Diagrams: 12/24/19 20:27 12/24/19 20:27 Lab results: WBC 17.2 thou/uL (4.8-10.8) H 12/24/19 20:27 Hgb 14.0 g/dL (14.0-18.0) 12/24/19 20: Hct 42.9 % (42.0-52.0) 12/24/19 20: MCV 81.9 fL (78.0-98.0) 12/24/19 20: Plt Count 551 thou/uL (130-400) H 12/24/19 20: Neutrophils % 89.8 % (42.0-75.0) H 12/24/19 20:27 Sodium 132 mmol/L (136-145) L 12/24/19 20: Potassium 4.5 mmol/L (3.5-5.1) 12/24/19: Chloride 97 mmol/L (98-107) L 12/24/19: Carbon Dioxide 25 mmol/L (23-31) 12/24/19 20: BUN 20 mg/dL (8.4-25.7) 12/24/19: Creatinine 1.61 mg/dL (0.7-1.3) H 12/24/19 20: Glucose 245 mg/dL (80-115) H 12/24/19: Calcium 9.4 mg/dL (7.8-10.44) 12/24/19: Total Bilirubin 0.5 mg/dL (0.2-1.2) 12/24/19 20: AST 18 U/L (5-34) 12/24/19: ALT 19 U/L (8-55) 12/24/19: Alkaline Phosphatase 96 U/L (40-110) 12/24/19 20: Serum Total Protein 7.0 g/dL (5.8-8.1) 12/24/19: Albumin 3.7 g/dL (3.4-4.8) 12/24/19 20: - EKG Interpretation EKG: EKG: inverted T waves: I, II, V3-V6 - Radiology Interpretation Chest x-ray Status: report reviewed by me (no acute cardiopulonary processes) FMR H&P: A/P - Problem List (1) Atypical chest pain Current Visit: Yes Status: Acute Code(s): R07.89 - OTHER CHEST PAIN (2) Diabetic foot infection Current Visit: No Status: Acute Code(s): E11.69 - TYPE 2 DIABETES MELLITUS WITH OTHER SPECIFIED COMPLICATION; L08.9 - LOCAL INFECTION OF THE SKIN AND SUBCUTANEOUS TISSUE, UNSP (3) CAD (coronary artery disease) Current Visit: No Status: Chronic Code(s): I25.10 - ATHSCL HEART DISEASE OF [place] CORONARY ARTERY W/O ANG PCTRS Qualifiers: Coronary Disease-Associated Artery/Lesion type: bypass graft (4) CHF (congestive heart failure) Current Visit: No Status: Chronic Code(s): I50.9 - HEART FAILURE, UNSPECIFIED Qualifiers: Heart failure type: systolic (5) COPD (chronic obstructive pulmonary disease) Current Visit: No Status: Chronic Qualifiers: COPD type: emphysema (6) Diabetes type 2, uncontrolled Current Visit: No Status: Chronic Code(s): E11.65 - TYPE 2 DIABETES MELLITUS WITH HYPERGLYCEMIA (7) Drug abuse Current Visit: No Status: Chronic Code(s): F19.10 - OTHER PSYCHOACTIVE SUBSTANCE ABUSE, UNCOMPLICATED (8) Hx of CABG Current Visit: No Status: Chronic (9) Hyperlipidemia Current Visit: No Status: Chronic Code(s): E78.5 - HYPERLIPIDEMIA, UNSPECIFIED (10) Hypertension Current Visit: No Status: Chronic Code(s): I10 - ESSENTIAL (PRIMARY) HYPERTENSION - Plan Patient is a 69M with PMHx of COPD, HFrEF and HFpEF, HTN, DMII, HLD, tobacco abuse, PVD, GERD, amphetamine and meth abuse, CKD admitted for: #Atypical chest pain -patient having L-sided upper chest pain, intermittent, sharp, and sometimes radiating to left jaw -patient has hx of NH, 3-V CABG, and cardiac stents 6 months ago -patient has hx of meth and amphetamine drug abuse, could be potential cause of chest pain -EKG: inverted t-waves I, II, V3-V4 -trop 0.023, will continue to trend -was given therapeutic lovenox on ED for concerns for unstable angina; patient' s pain had resolved with nitro and he was not actively having pain in the ED on evaluation -will discontinue therapeutic lovenox for now, and can consider if trops rise -nitrostat dropped patient's blood pressure in ED, will continue fentanyl for chest pain at this time -possibly msk due to patient's cough -can consider consulting cards in am to discuss plans of care including stress vs cath vs medical management #Diabetic foot infection -patient has open blister on right great toe -per patient he has been told in the past that he will likely lose his toe -will get ESR and R foot xray to assess for possible osteo, can consider gen surg consult in am #Leukocytosis -WBC 17.2 -patient was recently discharged from [facility] on a course of oral prednisone -CXR neg for acute process -will get procal to further assess #DM2 -continue home meds -ISS -ACHS accuchecks #HTN -continue home meds #HFrEF and HFpEF -patient recently denied HF clinic due to drug abuse -will monitor fluid status closely, though appears euvolemic at this time -continue home meds #HLD -continue home meds #Meth and Amphetamine + on recent UDS -could be possible cause of patient's current chest pain -UDS pending Diet: NPO @ midnight for possible stress vs cath in am DVTppx: lovenox Dispo: tele obs for atypical chest pain; will trend trops and can consider cards consult in am; UDS and procal pending; R ft xr and ESR pending for foot ulcer Code: Full PCP: Cintia [facility]by H&P: Upper Level - Plan Date/Time: 12/24/192133 69 yo gentleman presents as a bounceback c/o atypical chest pain. He has a longstanding hx of meth and amphetamine use and has a hx of cardiac stent placement last May. The ER was concerned for unstable angina as they said he had chest pain at rest and received nitro which decreased his BP and did not resolve his chest pain. He was given fentanyl after that. When we saw him, his chest pain had resolved, was described as sharp and left-sided. His troponin was negative. His EKG showed t wave inversions in V3-V6 and lead II. We admitted him for atypical chest pain. We will trend his troponins and consider consulting cardiology in the am. His most recent cath was last May. If his chest pain recurrs we will repeat an EKG and provide fentanyl prn pain as the nitro dropped his blood pressures. He additionally has an ulcer on his right great toe. We ordered an ESR and xray at this looks concerning for osteomyelitis. He has a hx of toe amputations on his left foot and was told by a doctor at [facility] that he needs to have his right toe amputated. Mg Graf MD, PGY-3, have evaluated this patient and agree with findings/ plan as outlined by internet manager resident. Pertinent changes/additions are listed here.
[2019-12-24] MEDS ORDERED: Fentanyl 100 MCG/2 ML VIAL ONE (21:43)
[2019-12-25 00:01] LABS: Troponin I 0.026 ng/mL (< 0.028)
[2019-12-25] MEDS ORDERED: Acetaminophen 325 MG TAB PO PRN (00:12)
[2019-12-25] MEDS ORDERED: HumaLOG 300 UNITS/3 ML VIAL SC PRN ×2 (00:12)
[2019-12-25] MEDS ORDERED: Dextrose 5% in Water 1,000 ML IV PRN (00:12)
[2019-12-25] MEDS ORDERED: Dextrose 50% Abboject 50 ML SYRINGE SLOW IVP PRN (00:12)
[2019-12-25 00:16] VITALS: BMI 32.3
[2019-12-25] MEDS ORDERED: PROVENTIL INHALER 6.7 G (200 INHALATIONS) INH PRN (00:50)
[2019-12-25] MEDS ORDERED: traMADol HCl 50 MG TAB PO PRN (00:50)
[2019-12-25 01:13] LABS: Cocaine Metabolite Screen Not Detected (NotDetected); Medtox Reader # READER 1; Methamphetamine Detected (NotDetected); Opiate Screen Not Detected (NotDetected); Phencyclidine (PCP) Not Detected (NotDetected); THC/Cannabinoid Screen Not Detected (NotDetected)
[2019-12-25 01:14] LABS: Amphetamine Detected (NotDetected); Barbiturates Screen Not Detected (NotDetected); Benzodiazepine Screen Not Detected (NotDetected); Medtox Control Line Valid? VALID (VALID); Methadone Not Detected (NotDetected); Oxycodone Screen Not Detected (NotDetected); Tricyclic Screen Not Detected (NotDetected)
[2019-12-25 02:32] LABS: #Eosinphils 0.1 thou/uL (0.0-0.7); #Monocytes 0.4 thou/uL (0.11-0.59); #Neutrophils 12.4 thou/uL (1.40-6.50); %Basophils 0.1 % (0.0-1.0); %Eosinophils 0.6 % (0.0-10.0); %Lymphocytes 7.1 % (21.0-51.0); %Monocytes 2.6 % (0.0-10.0); %Neutrophils 89.7 % (42.0-75.0); Mean Corpuscular HGB CONC 33.6 g/dL (32.0-36.0); Mean Corpuscular Hemoglobin 27.5 pg (27.0-31.0); Mean Corpuscular Volume 81.8 fL (78.0-98.0); Mean Platelet Volume 7.8 fL (7.4-10.4); Platelet Count 485 thou/uL (130-400); RBC Distribution Width 13.4 % (11.5-14.5); Red Blood Cell (RBC) Count 4.73 mill/uL (4.70-6.10); White Blood Cell (WBC) Count 13.8 thou/uL (4.8-10.8)
[2019-12-25 02:52] LABS: Hemoglobin A1c 9.8 % (4.0-6.0)
[2019-12-25] MEDS ORDERED: Fentanyl 100 MCG/2 ML VIAL SLOW IVP PRN (03:00)
[2019-12-25 03:04] LABS: Troponin I 0.024 ng/mL (< 0.028)
[2019-12-25 03:05] LABS: Anion Gap 17 mmol/L (10-20); BUN (Urea Nitrogen) 25 mg/dL (8.4-25.7); Calc. Creatinine Clearance 73 mL/min (70-130); Carbon Dioxide 21 mmol/L (23-31); Cardiac Risk 4.4 (Less than 4.5); Chloride 100 mmol/L (98-107); Cholesterol 145 mg/dl (< 200 Desired); Estimated GFR-MDRD 44; Glucose 319 mg/dL (80-115); HDL Cholesterol 33 mg/dL (>60 Neg Risk); LDL Cholesterol, Calculated 72 mg/dL; Sodium 133 mmol/L (136-145); Triglycerides 198 mg/dL (Less than 150)
--- NOTE | 2019-12-25 05:55 | PDOC.FM ---
- Subjective Subjective: Mild continuation of chest pain today - states it is only present with palpation , deep breaths or cough. States he last did meth a little less than a week ago. Used it to treat his breathing problems he was admitted for the following day. Does not have a education program manager. Has been putting off podiatry appointments do to feeling unwell recently. No SOB, N/V/D, diaphoresis. - Objective Vital Signs & Weight: Vital Signs (12 hours) Temp Pulse Resp BP BP Pulse Ox 12/25/19 04:20 72 18 135/82 95 12/24/19 23:55 97.5 F L 66 20 177/83 H 95 Weight Weight 114.169 kg Result Diagrams: 12/25/19 02:23 12/25/19 02:23 Phys Exam - Physical Examination Constitutional: NAD HEENT: moist MMs Neck: no JVD, full ROM Respiratory: wheezing present (diffuse, scant) Cardiovascular: RRR, no significant murmur Upper chest wall tenderness to palpation, precordial chest wall non tender Gastrointestinal: soft, non-tender Musculoskeletal: no edema, pulses present Neurological: non-focal, moves all 4 limbs Psychiatric: normal affect, A&O x 3 Deviation from normal: Multiple skin lesions to lower extremities and chronic ulcer rt great toe Dx/Plan (1) CAD (coronary artery disease) Code(s): I25.10 - ATHSCL HEART DISEASE OF [place] CORONARY ARTERY W/O ANG PCTRS Status: Chronic Qualifiers: Coronary Disease-Associated Artery/Lesion type: bypass graft (2) CHF (congestive heart failure) Code(s): I50.9 - HEART FAILURE, UNSPECIFIED Status: Chronic Qualifiers: Heart failure type: systolic (3) COPD (chronic obstructive pulmonary disease) Status: Chronic Qualifiers: COPD type: emphysema (4) Diabetes type 2, uncontrolled Code(s): E11.65 - TYPE 2 DIABETES MELLITUS WITH HYPERGLYCEMIA Status: Chronic (5) Hx of CABG Status: Chronic (6) Hypertension Code(s): I10 - ESSENTIAL (PRIMARY) HYPERTENSION Status: Chronic (7) Noncompliance Code(s): Z91.19 - PATIENT'S NONCOMPLIANCE W OTH MEDICAL TREATMENT AND REGIMEN Status: Chronic (8) Polysubstance abuse Code(s): F19.10 - OTHER PSYCHOACTIVE SUBSTANCE ABUSE, UNCOMPLICATED Status: Chronic (9) Chest pain Code(s): R07.9 - CHEST PAIN, UNSPECIFIED Status: Resolved - Plan Plan: Patient is a 69M with PMHx of COPD, HFrEF and HFpEF, HTN, DMII, HLD, tobacco abuse, PVD, GERD, amphetamine and meth abuse, CKD admitted for: Atypical chest pain -presented with L-sided upper chest pain, intermittent, sharp, and sometimes radiating to left jaw -hx of [place], 3-V CABG, and cardiac stents 6 months ago -UDS + methamphetamines -EKG: inverted t-waves I, II, V3-V4 -trop negative x3 -lovenox DC'd due to resolution of pain, negative troponins, EKG without signs of STEMI -BP highly sensitive to nitro, fentanyl for pain prn Diabetic foot infection -patient has open blister on right great toe -per patient he has been told in the past that he will likely lose his toe -will get ESR and R foot xray to assess for possible osteo Leukocytosis -patient was recently discharged from the hospital on a course of oral prednisone -CXR neg for acute process DM2 -continue home meds -ISS -ACHS accuchecks -sugars elevated likely 2/2 recent steroids HTN -continue home meds HFrEF and HFpEF -patient recently denied from HF clinic due to drug abuse -will monitor fluid status closely, though appears euvolemic at this time -continue home meds HLD -continue home meds Hx of polysubstance abuse -UDS + for methamphetamine -will encourage cessation DVTppx: lovenox Code: Full Dispo: tele obs for atypical chest pain; trops trended negative and no events of CP overnight. Etiology of CP likely related to recent methamphetamine use and COPD exacerbation with continued cough and MSK pain. Will consider cardiology consult due to patient's cardiac hx vs stable discharge with outpatient cardiology follow up. PCP: Cintia
[2019-12-25] MEDS ORDERED: Mometasone/Formoterol 120 PUFF INHALER INH SCH (06:30)
[2019-12-25] MEDS ORDERED: metFORMIN 500 MG TAB PO SCH (08:00)
[2019-12-25] MEDS ORDERED: Carvedilol 3.125 MG TAB PO SCH (08:00)
--- NOTE | 2019-12-25 08:37 | RAD ---
Right foot 3 views HISTORY: Infection. Osteomyelitis. COMPARISON: 06/29/2018. FINDINGS: Lisfranc joint alignment is anatomic. Plantar arch is maintained. Mild osteophytosis throug hout the foot. Small plantar heel spur stable. Chronic erosion of the distal phalanx of the great toe has progressed slightly. Involvement of the fa r medial margin of the articular surface base. Soft tissue gas in the area of ulceration at the medial aspect of the toe. Chronic erosion of the distal phalanx of the second toe is unchanged in appearance. There is now erosion/destruction involving the tuft of the third toe. No soft tissue gas evident. Deltana over the arterial structures. IMPRESSION: Interval progression of aggressive destruction of the distal phalanx of the great toe. Ov erlying skin ulceration with soft tissue gas. Likely osteomyelitis. Development of destructive erosion of the distal tuft of the third toe. Chronic erosion distal phalanx second toe. Atherosclerosis.
[2019-12-25] MEDS ORDERED: Lisinopril 20 MG TAB PO SCH (09:00)
[2019-12-25] MEDS ORDERED: Prevnar 13-Val Conj/PF 0.5 ML SYRINGE IM ONE ×2 (09:00→09:45)
[2019-12-25] MEDS ORDERED: Amlodipine 10 MG TAB PO SCH (09:00)
[2019-12-25] MEDS ORDERED: Aspirin 325 mg Enteric Coated Tablet PO SCH (09:00)
[2019-12-25] MEDS ORDERED: Enoxaparin Sodium 40 MG/0.4 ML SYRINGE SC SCH (09:00)
[2019-12-25] MEDS ORDERED: Aspirin 81 mg Enteric Coated Tablet PO SCH (09:00)
[2019-12-25 11:55] VITALS: BP 153/79; TEMP 97.8
--- NOTE | 2019-12-25 12:31 | HP ---
Please see the history and physical done by Dr. Llamas as well as the progress note done by Dr. Badillo, for which I agree. The patient was seen, evaluated, discussed, and examined with the residents at bedside. HISTORY OF PRESENT ILLNESS: This is a 69-year-old gentleman, well known to our service, who was just discharged a couple of days previously for COPD exacerbation. He started having chest pain, diffuse aches and pains all over, and is being put in for a rule out myocardial infarct and situation. His troponins overnight were all completely normal. It was noted that he has extreme chest wall tenderness on palpating the left costochondral area and left upper chest, and he does state that same pain he is having. His urine drug screen is positive for methamphetamines. He has chronic sore on his right great toe. Apparently being followed by Podiatry at [facility], who has recommended further amputation as he has had numerous other appendages toes amputated before. Pain is better with the fentanyl. ALLERGIES: PER THE RESIDENT'S HISTORY AND PHYSICAL, FOR WHICH I AGREE. HOME MEDICATIONS: Per the resident's history and physical, for which I agree. PAST MEDICAL HISTORY: Per the resident's history and physical, for which I agree. PAST SURGICAL HISTORY: Per the resident's history and physical, for which I agree. FAMILY HISTORY: Per the resident's history and physical, for which I agree. SOCIAL HISTORY: Per the resident's history and physical, for which I agree. REVIEW OF SYSTEMS: Per the resident's history and physical, for which I agree. PHYSICAL EXAMINATION: VITAL SIGNS: Afebrile. Vital signs are stable. GENERAL: No apparent distress. Breathing comfortably. HEENT: Fine. NECK: No JVD, lymphadenopathy, or bruits. CHEST: Slightly decreased breath sounds. A lot of tenderness to the left upper chest wall. Palpation seems to cause exquisite amount of pain, which he states is similar to the pain that he was having. Does have a pre-pronounced concavity of the sternum where he had previous sternotomy, but nothing there is acute. ABDOMEN: Benign. EXTREMITIES: No edema. Right great toe distally with a chronic appearing ulcer. LABORATORY DATA: Initial blood workup: White count was up at 17 on steroids recently. Sugars up to 45, again likely steroid induced. Creatinine is 1.6. ASSESSMENT AND PLAN: 1. Chest wall pain, rule out coronary artery disease exacerbation or myocardial infarction, but at this point time certainly seems to be all chest wall pain. 2. Chronic obstructive pulmonary disease, recent exacerbation. 3. Diabetes. 4. Right great toe likely osteomyelitis, but sounds chronic. An x-ray did show probable osteomyelitis, but sedimentation rate was not too bad at 55. Plan is to discharge him since cardiac enzymes were normal. He will be back on home inhalers and will follow up with Podiatry for the toe as it sounds like he needs an amputation of that toe. Otherwise, see the discharge summary for further details. Job ID: [id number]
[2019-12-25] MEDS ORDERED: Atorvastatin Calcium 40 MG TAB PO SCH (21:00)
--- NOTE | 2019-12-26 12:53 | DIS ---
DATE OF ADMISSION: 12/24/2019 DATE OF DISCHARGE: 12/25/2019 ADMITTING ATTENDING: Román Lee MD DISCHARGE ATTENDING: Román Lee MD RESIDENT: Bishop Velazquez DO CONSULTS: None. PROCEDURES: Imaging: Chest x-ray showing no acute findings. Foot x-ray showing interval progression of aggressive destruction on the distal phalanx of the great toe with overlying skin ulceration and soft tissue gas, likely representing osteomyelitis. PRIMARY DIAGNOSES: Atypical chest pain-musculoskeletal in nature, osteomyelitis. SECONDARY DIAGNOSES: Polysubstance abuse, hypertension, history of coronary artery bypass graft, diabetes mellitus type 2, chronic obstructive pulmonary disease, congestive heart failure. DISCHARGE MEDICATIONS: 1. Ventolin HFA two puffs q.4 hours p.r.n. 2. Metformin 1000 mg p.o. b.i.d. 3. Atorvastatin 40 mg at bedtime. 4. Ecotrin 81 mg daily. 5. Lisinopril 20 mg p.o. b.i.d. 6. Tramadol 50 mg p.o. q.i.d. p.r.n. 7. Budesonide-formoterol 160-4.5 two puffs daily. 8. Norvasc 10 mg daily. 9. DuoNeb 3 mL nebulizer q.2 hours p.r.n. 10. Prednisone 40 mg daily. 11. Levaquin 750 mg p.o. q.2 days. 12. Coreg 3.125 p.o. b.i.d. HISTORY OF PRESENT ILLNESS AND HOSPITAL COURSE: The patient is a 69-year-old male who presented to the emergency department following a recent admission three days prior for COPD, now complaining of worsening chest pain and shortness of breath that had started yesterday. The patient reports that his chest pain was intermittent over the last couple of days and is sharp and located in his left upper chest. The patient did note that he had couple of falls over the last week resulting in him landing on his left side two of the times. Workup in the ED showed initial troponin that was negative with an EKG significant for T-wave inversions in 1, 2, and V3 and V4. The patient was subsequently admitted to the hospital for serial troponins and evaluation. During hospitalization, patient was also noted to have a diabetic foot ulcer on the right great toe. The patient did note that he has known osteomyelitis in this foot and is being followed by a supervisor [facility] for this and has a followup appointment soon to get it addressed surgically. His troponins were trended and negative. In the morning, the patient states that his chest pain still remains intermittent, however, was very reproducible on exam. The patient denies that his chest pain worsens with any exertion. UDS was positive for methamphetamines. The patient noted use of this within the last week. Due to the patient's symptoms likely being related to his recent falls, COPD exacerbation, and very musculoskeletal in nature, no further cardiac workup was warranted after his negative serial enzymes. We discussed this with the patient prior to discharge and he was agreeable for discharge that day and follow up as an outpatient. DISCHARGE INSTRUCTIONS: LOCATION: Home. DIET: Heart healthy. ACTIVITY: As tolerated by cardiopulmonary limits. FOLLOWUP: PCP, Dr. Mike Llamas within 7 days. Job ID: [id number]
== END 2019-12-25 14:30 | disposition home or self-care (01) ==
LOC: ERS 20:16 → 2SW 21:23
PROVIDERS: ADMIT Family Medicine; ATTEND Family Medicine
DX: R07.89 Other chest pain (principal); M86.9 Osteomyelitis, unspecified; I25.10 Atherosclerotic heart disease of native coronary artery without angina pectoris; J44.9 Chronic obstructive pulmonary disease, unspecified; I13.0 Hypertensive heart and chronic kidney disease with heart failure and stage 1 through stage 4 chronic kidney disease, or unspecified chronic kidney disease; I50.40 Unspecified combined systolic (congestive) and diastolic (congestive) heart failure; E11.65 Type 2 diabetes mellitus with hyperglycemia; F19.10 Other psychoactive substance abuse, uncomplicated; D72.829 Elevated white blood cell count, unspecified; K21.9 Gastro-esophageal reflux disease without esophagitis; E78.5 Hyperlipidemia, unspecified; E11.51 Type 2 diabetes mellitus with diabetic peripheral angiopathy without gangrene; E11.22 Type 2 diabetes mellitus with diabetic chronic kidney disease; E11.69 Type 2 diabetes mellitus with other specified complication; N18.9 Chronic kidney disease, unspecified; Z95.1 Presence of aortocoronary bypass graft; Z79.84 Long term (current) use of oral hypoglycemic drugs; Z79.899 Other long term (current) drug therapy; Z91.19 Patient's noncompliance with other medical treatment and regimen; Z98.890 Other specified postprocedural states
CPT/HCPCS: 71045; 73630; 80048; 80053; 80061; 80306; 82962; 83036; 84145; 84484 ×3; 85025 ×2; 85652; 90670; 93005; 94640; 94664; 94760; 96361; 96372 ×2; 96374; 99285; G0009; G0378 ×2; 36415; 36416; 90471; J1650; J3010

== ENCOUNTER 2020-01-20 14:32 | Emergency (ER) | payer MEDICARE, MEDICAID | END 2020-01-20 14:47 | disposition home or self-care (01) | LOC: ERS 14:32 | DX: L73.9 Follicular disorder, unspecified (principal); E11.9 Type 2 diabetes mellitus without complications; I25.2 Old myocardial infarction; J43.9 Emphysema, unspecified; I25.10 Atherosclerotic heart disease of native coronary artery without angina pectoris; E78.5 Hyperlipidemia, unspecified; I10 Essential (primary) hypertension; F17.210 Nicotine dependence, cigarettes, uncomplicated; Z79.899 Other long term (current) drug therapy; Z79.84 Long term (current) use of oral hypoglycemic drugs; Z79.82 Long term (current) use of aspirin | CPT/HCPCS: 99282 ==

== ENCOUNTER 2020-07-29 08:53 | Inpatient (IN) | payer MEDICARE, MEDICAID, OTHER ==
[2020-07-29] MEDS ORDERED: Aspirin Chewable 81 MG TAB ONE (09:19)
[2020-07-29] MEDS ORDERED: Nitroglycerin 0.4 MG TAB 1 EACH ONE (09:19)
[2020-07-29] MEDS ORDERED: Albuterol 200 PUFF (6.7GM INHALER) ONE (09:21)
[2020-07-29 09:44] LABS: #Eosinphils 0.2 thou/uL (0.0-0.7); #Lymphocytes 1.2 thou/uL (1.20-3.40); #Monocytes 0.4 thou/uL (0.11-0.59); #Neutrophils 5.8 thou/uL (1.40-6.50); %Basophils 0.2 % (0.0-1.0); %Eosinophils 2.7 % (0.0-10.0); %Lymphocytes 15.3 % (21.0-51.0); %Monocytes 5.8 % (0.0-10.0); Hemoglobin 14.1 g/dL (14.0-18.0); Mean Corpuscular HGB CONC 32.6 g/dL (32.0-36.0); Mean Corpuscular Hemoglobin 27.4 pg (27.0-31.0); Mean Corpuscular Volume 84.2 fL (78.0-98.0); Mean Platelet Volume 9.3 fL (7.4-10.4); Platelet Count 348 thou/uL (130-400); RBC Distribution Width 13.7 % (11.5-14.5); Red Blood Cell (RBC) Count 5.13 mill/uL (4.70-6.10); White Blood Cell (WBC) Count 7.6 thou/uL (4.8-10.8)
[2020-07-29] MEDS ORDERED: cefTRIAXone\\ROCEPHIN 2 GM VIAL ONE (09:54)
[2020-07-29] MEDS ORDERED: Azithromycin 500 MG VIAL ONE (09:54)
[2020-07-29 10:10] LABS: ALT (SGPT) 18 U/L (8-55); AST (SGOT) 13 U/L (5-34); Albumin 4.2 g/dL (3.4-4.8); Alkaline Phosphatase 114 U/L (40-110); Anion Gap 14 mmol/L (10-20); BUN (Urea Nitrogen) 18 mg/dL (8.4-25.7); Bilirubin, Total 0.4 mg/dL (0.2-1.2); Calc. Creatinine Clearance 0 mL/min (70-130); Carbon Dioxide 26 mmol/L (23-31); Chloride 103 mmol/L (98-107); Estimated GFR-MDRD 39; Globulin 3.2 g/dL (2.4-3.5); Glucose 255 mg/dL (80-115); Potassium 4.5 mmol/L (3.5-5.1); Protein, Total 7.4 g/dL (5.8-8.1); Sodium 138 mmol/L (136-145)
--- NOTE | 2020-07-29 10:23 | RAD ---
Portable chest: Date: 07/29/2020. Provided CLINICAL HISTORY: Shortness of breath. FINDINGS: Comparison 12/24/2019. Evaluation is limited by patient body habitus. The cardiac silhouette appears enlarged. There is patchy parenchymal opacity at the right lung base. Prominence of the pulmonary vasculature. The left lung base is suboptimally evaluated due to cardiomegaly and body habitus. No large pleural effusion or evidence for pneumothorax. IMPRESSION: 1. Patchy right basilar airspace disease, correlate for pneumonia. 2. Cardiomegaly and prominence of the pulmonary vasculature. POS: DOMINIC
[2020-07-29 10:31] LABS: CKMB 3.7 ng/mL (0-6.6)
--- NOTE | 2020-07-29 11:06 | PDOC.FPRHP ---
- History of Present Illness Chief Complaint: SOB History of Present Illness: Mr. Carmichael is a 69 yo M with PMHx of COPD, CAD s/p CABG X3 in 2013, and SC who presents to the ED 2/2 1 week of intermittent SOB and CESAR. Patient endorses intermittent substernal chest pain characterized as a "fullness" without radiation, but he "wasn't too worried about it". The pain is worse with deep breathing but not worse with activity. Associated symptoms included intermittent diaphoresis and dizziness. At this time he reports minimal chest pain that worsens when he takes a deep breath. He is unsure of his home medications. He endorses mild nasal congestion with a sore throat. He has not had any sick contacts. ED Course: Patient received therapeutic 1 mg/kg lovenox, nitro paste that helped with chest pain/SOB, 324 mg ASA, azithromycin 500 mg IV, Lasix 40 IVP, Rocephin 2g IV, Albuterol inhaler, sublingual nitro 0.4 mg. - Allergies/Adverse Reactions Allergies Allergy/AdvReac Type Severity Reaction Status Date / Time No Known Allergies Allergy Verified 12/24/19 23:45 - Home Medications Medication Instructions Recorded Confirmed Type Atorvastatin Calcium [Lipitor] 40 mg PO HS 06/29/18 12/25/19 History Ventolin HFA Inhaler 2 puff INH Q4HR PRN 06/29/18 12/25/19 History metFORMIN [Glucophage] 1,000 mg PO BID-WM 06/29/18 12/25/19 History Aspirin [Ecotrin Low Strength] 81 mg PO DAILY 05/16/19 12/25/19 History Lisinopril 20 mg PO BID 05/16/19 12/25/19 History Budesonide/Formoterol Fumarate 2 puff INH DAILY 12/19/19 12/25/19 History [Budesonide-Formoterol 160-4.5] traMADol HCl [Tramadol HCl] 50 mg PO QID PRN 12/19/19 12/25/19 History Amlodipine [Norvasc] 10 mg PO DAILY 12/20/19 12/25/19 History Carvedilol [Coreg] 3.125 mg PO BID #60 tab 12/21/19 12/25/19 Rx Ipratropium/Albuterol Sulfate 3 ml NEB [id number] PRN neb 12/21/19 12/25/19 Rx [DuoNeb] predniSONE 40 mg PO DAILY #10 tab 12/21/19 12/25/19 Rx - History PMH: COPD, HTN, DM2, SC, CAD Allergies: NKDA Surgery: CABG, multiple toe amputations, finger amputation FHx: Noncontributory Social: 1/ PPD, Denies EtOH, Drug Abuse - Review of Systems General: denies: fever/chills Eyes: denies: vision changes ENT: reports: nasal congestion, rhinorrhea Respiratory: reports: congestion, shortness of breath. denies: cough Cardiovascular: reports: chest pain. denies: palpitation Gastrointestinal: denies: nausea, vomiting, diarrhea, constipation, abdominal pain Genitourinary: denies: dysuria, discharge Skin: denies: rashes, lesions Musculoskeletal: reports: swelling. denies: tenderness - Vital signs HR(70) BP(164/91) RR(24) O2(96% - 1.5L) - Physical Exam Constitutional: NAD, awake, alert and oriented, well developed HEENT: normocephalic and atraumatic, EOMI, grossly normal vision, grossly normal hearing, MMM Neck: supple, FROM, no JVD -Chest: Large sternotomy scar Heart: RRR, normal S1/S2, no murmurs/rubs/gallops -Lungs: Bilateral crackles, diffuse expiratory wheezing Abdomen: soft, non-tender Musculoskeletal: ROM grossly normal Neurological: no focal deficit, CN II-XII intact Skin: no rash/lesions, capillary refill <2 seconds FMR H&P: Results - Labs Result Diagrams: 07/29/20 09:22 07/29/20 09:22 Lab results: WBC 7.6 thou/uL (4.8-10.8) 07/29/20 09:22 Hgb 14.1 g/dL (14.0-18.0) 07/29/20 09:22 Hct 43.2 % (42.0-52.0) 07/29/20 09:22 MCV 84.2 fL (78.0-98.0) 07/29/20 09:22 Plt Count 348 thou/uL (130-400) 07/29/20 09:22 Neutrophils % 76.0 % (42.0-75.0) H 07/29/20 09:22 Sodium 138 mmol/L (136-145) 07/29/20 09:22 Potassium 4.5 mmol/L (3.5-5.1) 07/29/20 09:22 Chloride 103 mmol/L (98-107) 07/29/20 09:22 Carbon Dioxide 26 mmol/L (23-31) 07/29/20 09:22 BUN 18 mg/dL (8.4-25.7) 07/29/20 09:22 Creatinine 1.74 mg/dL (0.7-1.3) H 07/29/20 09:22 Glucose 255 mg/dL (80-115) H 07/29/20 09:22 Calcium 9.0 mg/dL (7.8-10.44) 07/29/20 09:22 Total Bilirubin 0.4 mg/dL (0.2-1.2) 07/29/20 09:22 AST 13 U/L (5-34) 07/29/20 09:22 ALT 18 U/L (8-55) 07/29/20 09:22 Alkaline Phosphatase 114 U/L (40-110) H 07/29/20 09:22 CK-MB (CK-2) 3.7 ng/mL (0-6.6) 07/29/20 09:22 B-Natriuretic Peptide 1498.3 pg/mL (0-100) H 07/29/20 09:22 Serum Total Protein 7.4 g/dL (5.8-8.1) 07/29/20 09:22 Albumin 4.2 g/dL (3.4-4.8) 07/29/20 09:22 - EKG Interpretation EKG: diffuse T wave inversions, ~1mm ST segment depression in V4-5 - Radiology Interpretation Chest x-ray Status: image reviewed by me, report reviewed by me Additional comment: Cardiomegaly, pulmonary vasculature congestion, RLL infiltrate FMR H&P: A/P - Problem List (1) MELODY (acute kidney injury) Current Visit: No Status: Acute Code(s): N17.9 - ACUTE KIDNEY FAILURE, UNSPECIFIED (2) Acute respiratory failure with hypoxia Current Visit: No Status: Acute Code(s): J96.01 - ACUTE RESPIRATORY FAILURE WITH HYPOXIA (3) CAD (coronary artery disease) Current Visit: No Status: Chronic Code(s): I25.10 - ATHSCL HEART DISEASE OF [place] CORONARY ARTERY W/O ANG PCTRS Qualifiers: Coronary Disease-Associated Artery/Lesion type: bypass graft (4) CHF (congestive heart failure) Current Visit: No Status: Chronic Code(s): I50.9 - HEART FAILURE, UNSPECIFIED Qualifiers: Heart failure type: systolic (5) COPD (chronic obstructive pulmonary disease) Current Visit: No Status: Chronic Qualifiers: COPD type: emphysema (6) Diabetes type 2, uncontrolled Current Visit: No Status: Chronic Code(s): E11.65 - TYPE 2 DIABETES MELLITUS WITH HYPERGLYCEMIA (7) Hx of CABG Current Visit: No Status: Chronic (8) Hypertension Current Visit: No Status: Chronic Code(s): I10 - ESSENTIAL (PRIMARY) HYPERTENSION (9) Polysubstance abuse Current Visit: No Status: Chronic Code(s): F19.10 - OTHER PSYCHOACTIVE SUBSTANCE ABUSE, UNCOMPLICATED Comment: Methamphetamines and tobacco - Plan Acute hypoxic respiratory failure 2/2 CHF exacerbation -BNP 1498, exam concerning for fluid overload, Lasix in ED - ECHO 12/30 showed EF 30% - Continue Lasix QD - Continue home Beta argelia, lisinopril Indeterminant troponins - Hx of SC and CABG X3 - Trend, consider cardiology consult COPD - Likely some component in exacerbation - Duonebs Q6h, Q4h PRN - Monitor respiratory status DM - SSI - hypoglycemic protocol HTN - Home amlodipine, meds as above MELODY on CKD -Cr: 1.74 on admission baseline appears to be ~1.5 -Will monitor closely with AM Labs in light of ongoing diuresis Hx of Polysubstance Abuse -Possibly contributing -UDS: Pending Tobacco Abuse - smokes 1/3 MD jeramy aware Code status: DNR Diet: Heart Healthy DVT ppx: Heparin PCP: [facility] Dispo: admit to tele obs, LOS<48 hrs UPDATE: 1899: Discussed with Dr. Fernandez after troponins trended up to 0.35. Recommended starting therapeutic lovenox at 9 pm, q12 hrs. Dr. Fernandez will see patient in AM. Repeat EKG with no changes from one obtained in ED. Patient reevaluated and reports no chest pain at this time. He and nursing report increased chest pain during the move to the room, patient reports that it is 2/2 moving around and SOB. Will continue to trend trops, consider cath in near future per Rebecca. FMR H&P: Upper Level - Pertinent history Patient is a 69 y/o male with a PMH significant for CHF, SC w/ a Hx of CABG and stent placement, DM2, HTN, COPD and reported drug abuse who presents to the ED for evaluation of worsening SOB. Patient states that he has had worsening SOB for ~1W, as well as CESAR and mild peripheral edema. Patient states that he has become particularly SOB while he is working and walking around his house. Patient thinks he may have missed some of his medications recently, but is unsure when and which medications he actually missed. Patient denies worrisome symptoms such as fever, chills, crushing chest pain, syncope, diaphoresis, N/V/D/C, bloody stools or recent sick contacts. - Pertinent findings Physical exam was remarkable for dyspnea, requiring O2 1.5L via nasal cannula, at the time of evaluation. Other physical exam findings included crackles at the bilateral lower lung marroquin and +1-2 pitting edema. EKG demonstrated ST Depression in the lateral leads, although this may have been consistent with previous EKG in 12/30, without evidence of ST elevations. CXR was notable for cardiomegaly and vascular congestion, with questionable right basilar opacities that may correlate with PNA, although this appears unlikely based on the patient's HPI and ROS. BNP was elevated > 1000, and Troponins were in the Indeterminate Range x2. - Plan Date/Time: 07/29/20 1106 Patient is a 69 y/o male with a PMH significant for CHF, [place] w/ a Hx of CABG and stent placement, DM2, HTN, COPD and reported drug abuse who presents to the ED for evaluation of worsening SOB. 1. Acute Hypoxic Respiratory Failure 2/2 CHF Exacerbation -HPI and ROS notable only for worsening SOB - denies fevers, worsening cough, recent sick contacts -Physical Exam remarkable for new O2 requirement, crackles at the bilateral lung bases, and +2 pitting edema bilaterally -EKG: ST Depression in the lateral leads - somewhat similar to previous EKG and w/o signs of ST Elevation -CXR: Patchy right airspace opacities, cardiomegaly, increased pulmonary vasculature -Trops: 0.269, 0.277 - will continue to trend -BNP: > 1000 -s/p Furosemide 40 mg IV in the ED - will continue diuresis based on clinical picture -Will continue supplemental O2 w/ DuoNebs KIAH and PRN see #2 -Echo (12/30): EF (30-35%) - will not repeat -Daily Weights, Strict I&Os 2. COPD -See #1 -Likely exacerbated by continued Tobacco Abuse - will marriage and family counselor strongly about the importance of Tobacco Abuse cessation prior to DC 3. DM2 -Blood Glucose: 255 on admission w/o an Anion Gap -HgA1c (12/30): 9.8 - will not repeat -ACHS Accuchecks -Mild SSI -Hypoglycemia Protocol -Will consider restarting home medication regimen based on renal function 4. MELODY on CKD -Cr: 1.74 on admission - baseline appears to be ~1.5 -Will monitor closely with AM Labs in light of ongoing diuresis 5. HTN -No severe-range pressures noted during initial evaluation - will continue to monitor closely -Will restart home medication regimen 6. Tobacco Abuse -See #1 8. Hx of Polysubstance Abuse -Possible contributing factor to #1 -UDS: Pending Code: DNAR PCP: [facility] Diet: NPO Activity: Ad jensen VTE PPx: Th. Lovenox Dispo: Patient is currently stable and admitted to the Telemetry Floor for further evaluation and treatment of likely CHF Exacerbation. Will continue diur esis, trend Troponin and continuous cardiac monitoring as per above while controlling the patients other chronic medical problems. Will consider Cardiology consult if indicated. Expected LOS < 48H I, [Ernesto Rodrigues MD], have evaluated this patient and agree with findings/plan as outlined by internet sales consultant resident. Pertinent changes/additions are listed here. Addendum - Attending - Attending Attestation Date/Time: 07/29/20 8716 I personally evaluated the patient and discussed the management with Dr. Rodrigues I agree with the History, Examination, Assessment and Plan documented above with any addition or exceptions noted below. Patient with 7 days intermittent non excertional CP. PMHX CAD s/p CABG and COPD with continued tobacco use. Patient appears fluid overloaded. R/o ACS NSTEMI trend troponins EKG prn and as indicated Cardiology consultation
[2020-07-29 11:22] LABS: SARS-CoV-2 NAA Rapid Test Not Detected (NotDetected)
[2020-07-29] MEDS ORDERED: Enoxaparin Sodium 40 MG/0.4 ML SYRINGE ONE ×2 (11:32→11:58)
[2020-07-29] MEDS ORDERED: Enoxaparin Sodium 80 MG/0.8 ML SYRINGE ONE (11:32)
[2020-07-29] MEDS ORDERED: Nitroglycerin 2% Ointment 1 INCH/1 GM Packet ONE (11:32)
[2020-07-29] MEDS ORDERED: Ondansetron ODT 4 MG TAB PO PRN (12:32)
[2020-07-29] MEDS ORDERED: Calcium Carbonate 500 MG ChewTAB PO PRN (12:32)
[2020-07-29] MEDS ORDERED: Acetaminophen 650 MG Suppository PR PRN (12:32)
[2020-07-29] MEDS ORDERED: Acetaminophen 325 MG TAB PO PRN (12:32)
[2020-07-29] MEDS ORDERED: hydrOXYzine 25 MG TAB PO PRN (12:53)
[2020-07-29] MEDS ORDERED: HumaLOG 300 UNITS/3 ML VIAL SC PRN (12:55)
[2020-07-29] MEDS ORDERED: Dextrose 50% Abboject 50 ML SYRINGE SLOW IVP PRN (12:55)
[2020-07-29] MEDS ORDERED: Dextrose 5% in Water 1,000 ML IV PRN (12:55)
[2020-07-29 13:08] LABS: Troponin I 0.277 ng/mL (< 0.028)
[2020-07-29] MEDS ORDERED: Albuterol Sulfate 2.5 mg/3 ml Neb NEB PRN (13:09)
[2020-07-29] MEDS ORDERED: Furosemide 40 MG/4 ML VIAL ONE (13:31)
[2020-07-29] MEDS ORDERED: Heparin 5,000 UNITS/ML VIAL SC SCH (15:00)
[2020-07-29 16:50] LABS: Troponin I 0.356 ng/mL (< 0.028)
[2020-07-29] MEDS ORDERED: Morphine 2 MG/ML VIAL SLOW IVP PRN (18:38)
[2020-07-29] MEDS ORDERED: Clopidogrel Bisulfate 300 MG TAB PO SCH (18:45)
[2020-07-29 19:43] VITALS: BMI 33.3
[2020-07-29] MEDS: Nicotine 14 MG PATCH TD SCH (20:16)
[2020-07-29 20:17] LABS: Troponin I 0.394 ng/mL (< 0.028)
[2020-07-29] MEDS: metFORMIN 500 MG TAB PO SCH (20:53)
[2020-07-29] MEDS: Morphine 2 MG/ML VIAL SLOW IVP PRN ×2 (20:54→22:09)
[2020-07-29] MEDS: Carvedilol 3.125 MG TAB PO SCH (20:54)
[2020-07-29] MEDS: Enoxaparin Sodium 120 MG/0.8 ML SYRINGE SC SCH (20:55)
[2020-07-29] MEDS: Rosuvastatin 20 MG TAB PO SCH (20:56)
[2020-07-29] MEDS ORDERED: Nitroglycerin 0.4 MG TAB 1 EACH SL PRN (22:14)
[2020-07-29] MEDS ORDERED: Nitroglycerin 2% Ointment 1 INCH/1 GM Packet TOP SCH (22:15)
[2020-07-30] MEDS: Morphine 2 MG/ML VIAL SLOW IVP PRN ×2 (01:24→13:14)
[2020-07-30 04:52] LABS: #Basophils 0.1 thou/uL (0.0-0.2); #Eosinphils 0.3 thou/uL (0.0-0.7); #Lymphocytes 1.4 thou/uL (1.20-3.40); #Monocytes 0.4 thou/uL (0.11-0.59); %Basophils 0.9 % (0.0-1.0); %Eosinophils 5.6 % (0.0-10.0); %Lymphocytes 22.6 % (21.0-51.0); %Monocytes 5.8 % (0.0-10.0); %Neutrophils 65.2 % (42.0-75.0); Hemoglobin 12.8 g/dL (14.0-18.0); Mean Corpuscular Hemoglobin 27.4 pg (27.0-31.0); Mean Corpuscular Volume 83.2 fL (78.0-98.0); Platelet Count 311 thou/uL (130-400); RBC Distribution Width 13.5 % (11.5-14.5); Red Blood Cell (RBC) Count 4.67 mill/uL (4.70-6.10); White Blood Cell (WBC) Count 6.1 thou/uL (4.8-10.8)
[2020-07-30 05:21] LABS: Anion Gap 14 mmol/L (10-20); BUN (Urea Nitrogen) 19 mg/dL (8.4-25.7); Calc. Creatinine Clearance 75 mL/min (70-130); Calcium 9.1 mg/dL (7.8-10.44); Carbon Dioxide 25 mmol/L (23-31); Chloride 104 mmol/L (98-107); Estimated GFR-MDRD 44; Glucose 142 mg/dL (80-115); Sodium 139 mmol/L (136-145)
--- NOTE | 2020-07-30 05:24 | PDOC.FM ---
- Subjective Subjective: Patient was laying in bed at the time of evaluation and did not appear to be in any acute cardiopulmonary distress. Patient stated that his chest pain was well- controlled, and was actually barely noticeable. Patient's biggest complaint was that his left middle finger hurt - stating that this pain had been present for years but was far worse than the chest pain that he had on admission. Patient denied feeling SOB on 2L via nasal cannula, and denied any nausea or vomiting. Per review of the patient's rhythm strip on the Telemetry Floor, there were no acute arrythmias. - Objective Vital Signs & Weight: Vital Signs (12 hours) Temp Pulse Resp BP Pulse Ox 07/30/20 01:33 53 L 18 97 07/29/20 22:18 63 20 100 07/29/20 19:20 98.5 F 81 18 136/77 98 07/29/20 17:37 98.2 F 59 L 21 H 146/84 H 100 Weight Weight 117.934 kg Result Diagrams: 07/30/20 04:26 07/30/20 04:26 Phys Exam - Physical Examination Constitutional: NAD HEENT: moist MMs, oral pharynx no lesions Neck: supple, full ROM Respiratory: no rhonchi Minimal bilateral crackles and expiratory wheezes - improving Cardiovascular: RRR, no significant murmur, no rub Gastrointestinal: soft, non-tender, no distention, positive bowel sounds Musculoskeletal: no edema, pulses present Neurological: non-focal, moves all 4 limbs Psychiatric: normal affect Dx/Plan (1) MELODY (acute kidney injury) Code(s): N17.9 - ACUTE KIDNEY FAILURE, UNSPECIFIED Status: Acute (2) Acute respiratory failure with hypoxia Code(s): J96.01 - ACUTE RESPIRATORY FAILURE WITH HYPOXIA Status: Acute (3) CAD (coronary artery disease) Code(s): I25.10 - ATHSCL HEART DISEASE OF [place] CORONARY ARTERY W/O ANG PCTRS Status: Chronic Qualifiers: Coronary Disease-Associated Artery/Lesion type: bypass graft (4) CHF (congestive heart failure) Code(s): I50.9 - HEART FAILURE, UNSPECIFIED Status: Chronic Qualifiers: Heart failure type: systolic (5) COPD (chronic obstructive pulmonary disease) Status: Chronic Qualifiers: COPD type: emphysema (6) Diabetes type 2, uncontrolled Code(s): E11.65 - TYPE 2 DIABETES MELLITUS WITH HYPERGLYCEMIA Status: Chronic (7) Hx of CABG Status: Chronic (8) Hypertension Code(s): I10 - ESSENTIAL (PRIMARY) HYPERTENSION Status: Chronic (9) Polysubstance abuse Code(s): F19.10 - OTHER PSYCHOACTIVE SUBSTANCE ABUSE, UNCOMPLICATED Status: Chronic - Plan Plan: Patient is a 69 y/o male with a PMH significant for CHF, [place] w/ a Hx of CABG and stent placement, DM2, HTN, COPD and reported drug abuse who presents to the ED for evaluation of worsening SOB. 1. Acute Hypoxic Respiratory Failure 2/2 CHF Exacerbation -HPI and ROS notable only for worsening SOB - denies fevers, worsening cough, recent sick contacts -Physical Exam remarkable for new O2 requirement, crackles at the bilateral lung bases, and +2 pitting edema bilaterally -EKG: ST Depression in the lateral leads - somewhat similar to previous EKG and w/o signs of ST Elevation -Repeat EKG performed after arrival to Telemetry Floor - no significant changes noted -CXR: Patchy right airspace opacities, cardiomegaly, increased pulmonary vasculature -Trops: 0.269 > 0.394 -BNP: 1498 -s/p Furosemide 40 mg IV in the ED - will continue diuresis based on clinical picture -Will continue supplemental O2 w/ DuoNebs KIAH and PRN see #2 -Echo (12/30): EF (30-35%) - will not repeat -Will restart patient's home Lisinopril and Carvedilol - will hold Amlodipine -Daily Weights, Strict I&Os 2. NSTEMI -Patient is a regrettably poor historian - inconsistent complaints of chest pain for multiple providers -Trops initially indeterminate - trended upward into positive range after transfer to the Telemetry Floor -Cardiology: Consulted, recommended Th. Lovenox BID - additional recs appreciated -Morphine 2 mg IV Q30M PRN, Nitro PRN for pain 3. COPD -See #1 -Likely exacerbated by continued Tobacco Abuse - will public relations counselor strongly about the importance of Tobacco Abuse cessation prior to DC 4. DM2 -Blood Glucose: 255 on admission w/o an Anion Gap -HgA1c (12/30): 9.8 - will not repeat -ACHS Accuchecks -Mild SSI -Hypoglycemia Protocol 5. MELODY on CKD, improving -Cr: 1.74 on admission - baseline appears to be ~1.5 -Cr: 1.57 on 07/30 -Will monitor closely with AM Labs in light of ongoing diuresis 6. HTN -No severe-range pressures noted during initial evaluation - will continue to monitor closely -Will continue patient's home Lisinopril and Carvedilol, but will DC patient's home Amlodipine due to #1 7. Tobacco Abuse -See #1 8. Hx of Polysubstance Abuse -Possible contributing factor to #1 -UDS: Amphetamines, Methamphetamines Code: DNAR PCP: [facility] Diet: Consistent Carbohydrate Activity: Ad jensen VTE PPx: Th. Lovenox Dispo: Patient is currently stable and admitted to the Telemetry Floor for further evaluation and treatment of likely CHF Exacerbation and NSTEMI, likely secondary to Demand Ischemia. Will continue diuresis and medical management as per above. Cardiology consulted - will likely evaluate this AM. Will continue to control patients other chronic medical problems throughout hospitalization. Expected LOS < 48H Addendum - Attending - Attending Attestation Date/Time: 07/30/20 0220 I personally evaluated the patient and discussed the management with Dr. Rodrigues I agree with the History, Examination, Assessment and Plan documented above with any addition or exceptions noted below. Patient with episode of Chest pain Rx nitrate and ASA IV morphine EKG and troponin ordered continue nitrates and will notify Cardiology .
[2020-07-30 06:24] LABS: Amphetamine Detected (NotDetected); Barbiturates Screen Not Detected (NotDetected); Benzodiazepine Screen Not Detected (NotDetected); Cocaine Metabolite Screen Not Detected (NotDetected); Medtox Control Line Valid? VALID (VALID); Medtox Reader # READER 4; Methadone Not Detected (NotDetected); Methamphetamine Detected (NotDetected); Opiate Screen Detected (NotDetected); Oxycodone Screen Not Detected (NotDetected); Phencyclidine (PCP) Not Detected (NotDetected); THC/Cannabinoid Screen Not Detected (NotDetected); Tricyclic Screen Not Detected (NotDetected)
[2020-07-30] MEDS ORDERED: Furosemide 40 MG/4 ML VIAL SLOW IVP SCH (09:00)
[2020-07-30] MEDS ORDERED: Amlodipine 10 MG TAB PO SCH (09:00)
[2020-07-30] MEDS ORDERED: FLU VACC QS2020-21(65YR UP)/PF 240 MCG/0.7 ML SYRINGE IM ONE (09:00)
[2020-07-30] MEDS ORDERED: Clopidogrel Bisulfate 75 MG TAB PO SCH (09:00)
[2020-07-30] MEDS ORDERED: Iopamidol 370 76% 100 ML VIAL ONE (09:01)
[2020-07-30] MEDS ORDERED: Iopamidol 370 76% 50 ML VIAL FS ONE (09:01)
[2020-07-30] MEDS: Lisinopril 20 MG TAB PO SCH (09:02)
[2020-07-30] MEDS: Aspirin 81 mg Enteric Coated Tablet PO SCH (09:02)
[2020-07-30] MEDS: metFORMIN 500 MG TAB PO SCH (09:03)
[2020-07-30] MEDS: Carvedilol 3.125 MG TAB PO SCH ×2 (09:03→21:40)
[2020-07-30] MEDS: Enoxaparin Sodium 120 MG/0.8 ML SYRINGE SC SCH (09:03)
[2020-07-30] MEDS: Nitroglycerin 0.4 MG TAB (25 Tab Bottle) SL PRN ×3 (09:04→12:49)
[2020-07-30] MEDS ORDERED: Aspirin Chewable 81 MG TAB ONE (13:12)
--- NOTE | 2020-07-30 13:27 | RAD ---
Exam: Chest one view HISTORY:Congestive heart failure. Chest pain. Comparison: 07/29/2020 FINDINGS: Cardiac silhouette:Persistent cardiomegaly. Aorta: Unremarkable Pulmonary vessels: Normal Costophrenic angles: Clear LUNGS: Reveal aeration lung parenchyma. Previous noted bibasilar opacities are less evident. Pneumothorax: None Osseous abnormalities: None IMPRESSION: 1. Cardiomegaly. 2. Improved bibasilar opacities. Minimal residual opacities do remain.
[2020-07-30] MEDS ORDERED: Aspirin Chewable 81 MG TAB PO SCH (13:45)
[2020-07-30 13:57] LABS: Critical Call Chem Troponin I RESULT DECREASING; Troponin I 0.325 ng/mL (< 0.028)
[2020-07-30] MEDS ORDERED: Communication Order-Pharmacy FS SCH (15:00)
[2020-07-30] MEDS ORDERED: Lidocaine 1% (PF) 30 ML VIAL ONE (15:16)
[2020-07-30] MEDS: Sodium Chloride 0.9% 1,000 ML IV SCH ×3 (15:24→22:27)
[2020-07-30] MEDS ORDERED: Fentanyl 100 MCG/2 ML VIAL ONE ×3 (15:58→19:33)
[2020-07-30] MEDS ORDERED: Nitroglycerin 100MG/250ML BOT 0 ML ONE (16:03)
[2020-07-30] MEDS ORDERED: Heparin 10,000 UNITS/ 10 ML VIAL ONE ×2 (16:03→16:35)
[2020-07-30] MEDS: Nicotine 14 MG PATCH TD SCH (16:31)
[2020-07-30] MEDS ORDERED: Clopidogrel Bisulfate 75 MG TAB ONE (17:22)
[2020-07-30] MEDS ORDERED: TICAGRELOR 90 MG TABLET PO SCH ×2 (17:23→21:00)
--- NOTE | 2020-07-30 18:39 | PDOC.BPN ---
<Zuleyka Baires - Last Filed: 07/30/20 18:35> - Brief Progress Note At approximately 1300, got call from nurse that pt having chest pain and hypotensive 98/67. Nurse had already given 2 rounds of nitro with no relief of sx. In room, patient looked uncomforable. Pt described pain as center of chest, pressure. Ekg showed worsening ST depression and new AV block. Was on oxygen, we added aspirin and morphine and ordered troponin. Dr. Fernandez was called and recommended transfer to ICU and start nitro drip. <Tomas Frank - Last Filed: 07/30/20 23:09> Addendum - Attending - Attending Attestation Date/Time: 07/30/20 2878 I personally evaluated the patient and discussed the management with Dr. Baires/Yadira Concern patient with ACS and to optical laboratory technician per Cardiology.
[2020-07-30] MEDS ORDERED: Fentanyl 100 MCG/2 ML VIAL SLOW IVP SCH ×2 (18:45→20:00)
[2020-07-30] MEDS ORDERED: Morphine 4 MG/ML VIAL ONE (20:13)
[2020-07-30] MEDS ORDERED: Fentanyl 100 MCG/2 ML VIAL SLOW IVP PRN ×2 (21:00→21:58)
[2020-07-30] MEDS ORDERED: Nitroglycerin 2% Ointment 1 INCH/1 GM Packet TOP SCH (21:30)
[2020-07-30] MEDS: Rosuvastatin 20 MG TAB PO SCH (21:40)
[2020-07-30] MEDS ORDERED: Sodium Chloride 0.9% 1,000 ML IV SCH (21:53)
[2020-07-30] MEDS: Midazolam HCl 2 mg/2 ml Vial SLOW IVP PRN (22:46)
--- NOTE | 2020-07-30 22:56 | CON ---
DATE OF CONSULTATION: 07/30/2020 REASON FOR CONSULTATION: Non-ST elevation myocardial infarction with ongoing chest pain. PRIMARY HUMAN RESOURCES BENEFITS SPECIALIST: Dr. Jai Melvin. HISTORY OF PRESENT ILLNESS: Mr. Carmichael is a 69-year-old gentleman with history of coronary artery disease, previous bypass surgery, previous stent implantation with intractable chest pain. The patient states he has been having chest pain for about a week. Initially, he thought it was in his heart. It seemed to come and go, but as of Friday, it became intense and then he came to the hospital for evaluation, found to have slight increased troponin level. He has continued to have chest pain off and on here despite enoxaparin, aspirin, Plavix, nitrates, beta blockers. He has had a lot of chest pain this afternoon. The patient had bypass surgery in the past in 2012, later developed a sternal wound infection with staph. The patient had peripheral vascular disease with a previous balloon angioplasty of the left posterior tibial artery in 2016. The patient still smokes, he said a pack of cigarettes lasting a few days. MEDICATIONS: 1. He takes aspirin. 2. He is on Plavix here. 3. He is on nitrates. 4. He got enoxaparin, last dose 6 hours ago. 5. Albuterol. ALLERGIES: NONE KNOWN. SOCIAL HISTORY: As mentioned, he continues to smoke, also unfortunately amphetamines. PHYSICAL EXAMINATION: VITAL SIGNS: This is a 6 feet 2 inches tall, 260 pounds man. Blood pressure 136/70, pulse 70. HEENT: Eyes, sclerae nonicteric. Mouth, mucous membranes moist. NECK: Supple. No lymphadenopathy. LUNGS: Clear. No wheezing, rales, or rhonchi. CARDIAC: Normal S1, normal S2. There is no murmur, rub, or gallop. ABDOMEN: Obese, nontender. No hepatosplenomegaly. EXTREMITIES: Warm and dry. No clubbing. No cyanosis. No edema. Peripheral pulses are intact. LABORATORY STUDIES: Troponin levels yesterday 0.356, today 0.325. EKG initially was relatively unremarkable, but today's EKG with ongoing chest pain is a right bundle-branch block, deep T-wave inversions in the anterior chest leads, T-wave inversion in lead II and AVF. The patient did not have right bundle-branch block on the EKG yesterday. I did review the cardiac catheterization films. He has 3-vessel disease. He had a patent internal mammary to the LAD. Distal disease, also proximal disease to the bypass graft, the circumflex distribution and an obtuse marginal graft to the distal obtuse marginal that was successfully stented and the right coronary had a patent graft. The patient had a 4.0 x 12 mm stent and it was dilated to 18 atmospheres. ASSESSMENT: 1. Unstable angina. 2. Continued chest pain. 3. Amphetamine dependence, ongoing. 4. Tobacco, ongoing. 5. New right bundle-branch block. PLAN: Proceed to emergency cardiac catheterization. The patient did receive Lovenox which will increase the risk of bleeding. He also has renal insufficiency. There is an increased risk for renal insufficiency. However, in view of the ongoing chest pain with EKG changes, it is appropriate to proceed with catheterization. He understands risk of stroke, heart attack, iodine allergy, loss of blood supply to leg or kidney, stent thrombosis, stent restenosis, and he wishes to proceed. Job ID: [id number]
[2020-07-31] MEDS: Midazolam HCl 2 mg/2 ml Vial SLOW IVP PRN ×2 (02:01→07:29)
[2020-07-31] MEDS: Morphine 2 MG/ML VIAL SLOW IVP PRN ×3 (03:42→12:34)
[2020-07-31 03:54] LABS: #Eosinphils 0.3 thou/uL (0.0-0.7); #Lymphocytes 1.2 thou/uL (1.20-3.40); #Monocytes 0.5 thou/uL (0.11-0.59); #Neutrophils 4.2 thou/uL (1.40-6.50); %Basophils 0.5 % (0.0-1.0); %Eosinophils 4.7 % (0.0-10.0); %Lymphocytes 19.5 % (21.0-51.0); %Monocytes 7.6 % (0.0-10.0); %Neutrophils 67.7 % (42.0-75.0); Mean Corpuscular HGB CONC 33.1 g/dL (32.0-36.0); Mean Corpuscular Hemoglobin 27.8 pg (27.0-31.0); Mean Corpuscular Volume 83.9 fL (78.0-98.0); Platelet Count 319 thou/uL (130-400); RBC Distribution Width 13.4 % (11.5-14.5); Red Blood Cell (RBC) Count 4.69 mill/uL (4.70-6.10); White Blood Cell (WBC) Count 6.2 thou/uL (4.8-10.8)
[2020-07-31 04:17] LABS: ALT (SGPT) 14 U/L (8-55); AST (SGOT) 12 U/L (5-34); Albumin 3.2 g/dL (3.4-4.8); Alkaline Phosphatase 99 U/L (40-110); Anion Gap 11 mmol/L (10-20); BUN (Urea Nitrogen) 19 mg/dL (8.4-25.7); Bilirubin, Total 0.5 mg/dL (0.2-1.2); Calc. Creatinine Clearance 71 mL/min (70-130); Calcium 9.1 mg/dL (7.8-10.44); Carbon Dioxide 29 mmol/L (23-31); Chloride 102 mmol/L (98-107); Estimated GFR-MDRD 43; Globulin 2.9 g/dL (2.4-3.5); Glucose 123 mg/dL (80-115); Potassium 3.8 mmol/L (3.5-5.1); Protein, Total 6.1 g/dL (5.8-8.1); Sodium 138 mmol/L (136-145)
[2020-07-31] MEDS ORDERED: Midazolam HCl 2 mg/2 ml Vial SLOW IVP PRN (08:30)
[2020-07-31] MEDS: Carvedilol 3.125 MG TAB PO SCH ×2 (08:44→19:43)
--- NOTE | 2020-07-31 08:50 | PDOC.FM ---
- Subjective Subjective: This morning does not want to answer many questions. Stated to nurse multiple times he wants to go home and might leave AMA. Patient states he has mild SOB however CP improved. No n/v. Tolerating PO, wants food. Girlfriend at bedside. - Objective MAR Reviewed: Yes Vital Signs & Weight: Vital Signs (12 hours) Temp Pulse Resp Pulse Ox 07/31/20 08:00 97.7 F 07/31/20 07:37 100 07/31/20 07:27 67 12 07/31/20 04:00 98.4 F 07/31/20 00:20 99 07/31/20 00:19 99 07/31/20 00:00 97.9 F Weight Weight 117.1 kg Most Recent Monitor Data Heart Rate from ECG 66 NIBP 148/83 NIBP BP-Mean 104 Respiration from ECG 11 SpO2 94 I&O: 07/30/20 07/31/20 08/01/20 06:59 06:59 06:59 Intake Total 776 Output Total 1875 0 Balance -1099 0 Result Diagrams: 07/31/20 03:15 07/31/20 03:15 Phys Exam - Physical Examination Constitutional: NAD (sleeping initially, obvious signs of sleep apnea with apneic events. Does not like to answer questions once awoken) HEENT: moist MMs Neck: no nodes, supple Respiratory: no wheezing, no rales, no rhonchi, clear to auscultation bilateral Cardiovascular: RRR Gastrointestinal: soft, non-tender, no distention, positive bowel sounds Musculoskeletal: no edema Neurological: non-focal, moves all 4 limbs Psychiatric: normal affect, A&O x 3 Dx/Plan (1) NSTEMI (non-ST elevated myocardial infarction) Code(s): I21.4 - NON-ST ELEVATION (NSTEMI) MYOCARDIAL INFARCTION Status: Acute (2) Acute on chronic congestive heart failure with left ventricular diastolic dysfunction Code(s): I50.33 - ACUTE ON CHRONIC DIASTOLIC (CONGESTIVE) HEART FAILURE Status: Acute (3) CHF (congestive heart failure) Code(s): I50.9 - HEART FAILURE, UNSPECIFIED Status: Chronic Qualifiers: Heart failure type: systolic (4) Polysubstance abuse Code(s): F19.10 - OTHER PSYCHOACTIVE SUBSTANCE ABUSE, UNCOMPLICATED Status: Chronic - Plan Plan: Patient is a 69 y/o male with a PMH significant for HFrEF, GA w/ a Hx of CABG and stent placement, DM2, HTN, COPD and reported drug abuse who presents to the ED for evaluation of worsening SOB. 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 Fernandez and found to have severe CAD, CHAUNCEY placed in proximal LAD - Dr. Melvin, consulted, recommended further medical management, apprec recs - CAD s/p 3v CABG with subsequent staph sternal infection 1 year after #Acute Hypoxic Respiratory Failure 2/2 HFrEF with ischemic cardiomyopathy Exacerbation, resolved - Initially edematous with O2 requirement, s/p diuresis with resolution of sxs -CXR: Patchy right airspace opacities, cardiomegaly, increased pulmonary vasculature -BNP: 1498 at admission -Echo (12/30): EF (30-35%) - will not repeat -Will restart patient's home Lisinopril and Carvedilol - will hold Amlodipine -Daily Weights, Strict I&Os #COPD -Likely exacerbated by continued Tobacco Abuse - will drug counselor strongly about the importance of Tobacco Abuse cessation prior to DC -Duonebs prn #DM2 -Blood Glucose: 255 on admission w/o an Anion Gap -HgA1c (12/30): 9.8 - will not repeat -ACHS Accuchecks -Mild SSI -Hypoglycemia Protocol #MELODY on CKD3b, resolved -Cr: 1.74 on admission - baseline appears to be ~1.5 #HTN -No severe-range pressures noted during initial evaluation - will continue to monitor closely -Will continue patient's home Lisinopril and Carvedilol, but will DC patient's home Amlodipine due to HFrEF #Hx of Polysubstance Abuse -Contributing to above presenting diagnosis -UDS: Amphetamines, Methamphetamines Code: DNAR PCP: [facility] Diet: Consistent Carbohydrate Activity: Ad jensen VTE PPx: Lovenox Dispo: S/p cardiac cath with CHAUNCEY placement. Stable and will transfer to tele floor. Medical management. Apprec cards recs. Anticipate LOS additional 1-2 days pending clinical course. Addendum - Attending - Attending Attestation Date/Time: 07/31/20 [id number] I personally evaluated the patient and discussed the management with Dr. May I agree with the History, Examination, Assessment and Plan documented above with any addition or exceptions noted below. Pt is a 69 yo male with PMH COPD, HFrEF, CAD s/p CABG and stents, drug abuse (meth) who presents for an acute HF exacerbation, NSTEMI on 07/30 requiring a cardiac cath with significant stenosis of multiple vessels, drug eluding stent placed in LAD. Continue Barilinta started on this admission. Unofficial EF estimated 22%. Pt will require medical management, cardiac rehab. Transfer to telemetry. Follow up on official echo read. Discuss need for placement with patient. Speech for swallow test due to aspiration risk.
[2020-07-31] MEDS: Lisinopril 20 MG TAB PO SCH (09:41)
[2020-07-31] MEDS: Aspirin 81 mg Enteric Coated Tablet PO SCH (09:41)
[2020-07-31] MEDS: TICAGRELOR 90 MG TABLET PO SCH ×2 (09:42→19:43)
[2020-07-31] MEDS ORDERED: Sodium Chloride 0.65% Nasal 44 ML BOT EA NARE PRN (11:08)
[2020-07-31 11:49] LABS: Cardiac Risk 4.5 (Less than 4.5)
[2020-07-31] MEDS: Sodium Chloride 0.9% 1,000 ML IV SCH ×2 (15:15→19:46)
[2020-07-31] MEDS ORDERED: Lorazepam 2 MG/ML VIAL SLOW IVP PRN (15:15)
--- NOTE | 2020-07-31 15:19 | PDOC.BPN ---
- Brief Progress Note Encounter Date: 07/31/20 Encounter Time: 15:10 Called to beside by RN due to patient wanting to leave AMA. Patient received Versed and Morphine within past hour and thus is sleepy on exam. Patient has removed all cardiac monitoring and states he wants to leave. Discussed risks of leaving AMA including risk of recurrent HI and even . Patient states he understands all risks but wants to go home. At this time, patient is too drowsy to operate a vehicle or leave on his own. Discontinued Versed and morphine. Will await medication to wear off and encourage patient to remain in hospital. Patient states he is going to leave as soon as his girlfriend comes to pick him up. RN made aware of conversation and discontinuation of meds. Will continue to assess.
[2020-07-31] MEDS: Nitroglycerin 0.4 MG TAB (25 Tab Bottle) SL PRN (19:42)
[2020-07-31] MEDS ORDERED: Atorvastatin Calcium 40 MG TAB PO SCH (21:00)
[2020-08-01] MEDS: Nitroglycerin 0.4 MG TAB (25 Tab Bottle) SL PRN (01:55)
[2020-08-01 02:34] LABS: #Eosinphils 0.4 thou/uL (0.0-0.7); #Lymphocytes 1.2 thou/uL (1.20-3.40); #Monocytes 0.5 thou/uL (0.11-0.59); #Neutrophils 4.5 thou/uL (1.40-6.50); %Basophils 0.3 % (0.0-1.0); %Eosinophils 6.1 % (0.0-10.0); %Lymphocytes 18.6 % (21.0-51.0); %Monocytes 7.5 % (0.0-10.0); %Neutrophils 67.5 % (42.0-75.0); Hemoglobin 13.8 g/dL (14.0-18.0); Mean Corpuscular HGB CONC 34.4 g/dL (32.0-36.0); Mean Corpuscular Hemoglobin 28.3 pg (27.0-31.0); Mean Corpuscular Volume 82.1 fL (78.0-98.0); Mean Platelet Volume 8.6 fL (7.4-10.4); Platelet Count 329 thou/uL (130-400); RBC Distribution Width 13.4 % (11.5-14.5); Red Blood Cell (RBC) Count 4.88 mill/uL (4.70-6.10); White Blood Cell (WBC) Count 6.6 thou/uL (4.8-10.8)
[2020-08-01 03:03] LABS: Anion Gap 11 mmol/L (10-20); BUN (Urea Nitrogen) 17 mg/dL (8.4-25.7); CKMB 3.4 ng/mL (0-6.6); Calc. Creatinine Clearance 97 mL/min (70-130); Calcium 9.5 mg/dL (7.8-10.44); Carbon Dioxide 25 mmol/L (23-31); Chloride 104 mmol/L (98-107); Estimated GFR-MDRD 60; Glucose 162 mg/dL (80-115); Sodium 136 mmol/L (136-145); Troponin I 0.268 ng/mL (< 0.028)
[2020-08-01] MEDS ORDERED: Labetalol HCl 100 MG/20 ML VIAL SLOW IVP PRN (05:21)
[2020-08-01] MEDS ORDERED: hydrALAZINE 10 MG TAB PO PRN (05:33)
--- NOTE | 2020-08-01 07:04 | PDOC.FM ---
- Subjective Subjective: This morning patient complaining of SOB, wheeze, and inability to catch his breath. States this has been ongoing for past few weeks. Associated substernal chest pain, all similar to presentation. Given nitro by night RN with no improvement. This morning, refused duoneb treatment or further nitro. Removed cardiac monitors overnight. Threatening to leave AMA. Denies any abd pain, fever/chills, n/v. No diaphoresis, dizziness/lightheadedness. - Objective MAR Reviewed: Yes Vital Signs & Weight: Vital Signs (12 hours) Temp Pulse Resp BP BP Pulse Ox 08/01/20 06:51 96 08/01/20 05:51 199/91 H 08/01/20 05:11 97.4 F L 62 16 196/104 H 96 08/01/20 02:00 145/71 H 08/01/20 01:57 171/83 H 08/01/20 00:43 71 16 98 07/31/20 19:40 98.0 F 70 16 172/83 H 97 Weight Weight 117.027 kg Most Recent Monitor Data Heart Rate from ECG 63 NIBP 135/62 NIBP BP-Mean 86 Respiration from ECG 15 SpO2 100 I&O: 07/31/20 08/01/20 08/02/20 06:59 06:59 06:59 Intake Total 776 420 Output Total 1875 452 Balance -1099 -32 Result Diagrams: 08/01/20 02:23 08/01/20 02:23 Phys Exam - Physical Examination Uncomfortable appearing. Answers questions appropriately HEENT: moist MMs Neck: supple Respiratory: no rales, no rhonchi BL breath sounds. Mild end-expiratory wheeze Cardiovascular: RRR Gastrointestinal: soft, non-tender, no distention, positive bowel sounds Musculoskeletal: no edema Neurological: moves all 4 limbs Psychiatric: A&O x 3 Deviation from normal: Multiple areas of scarring from prevoius skin wounds on all ext Dx/Plan (1) NSTEMI (non-ST elevated myocardial infarction) Code(s): I21.4 - NON-ST ELEVATION (NSTEMI) MYOCARDIAL INFARCTION Status: Acute (2) Acute on chronic congestive heart failure with left ventricular diastolic dysfunction Code(s): I50.33 - ACUTE ON CHRONIC DIASTOLIC (CONGESTIVE) HEART FAILURE Status: Acute (3) CHF (congestive heart failure) Code(s): I50.9 - HEART FAILURE, UNSPECIFIED Status: Chronic Qualifiers: Heart failure type: systolic (4) Polysubstance abuse Code(s): F19.10 - OTHER PSYCHOACTIVE SUBSTANCE ABUSE, UNCOMPLICATED Status: Chronic - Plan Plan: Patient is a 69 y/o male with a PMH significant for HFrEF, [place] w/ a Hx of CABG and stent placement, DM2, HTN, COPD and reported drug abuse who presents to the ED for evaluation of worsening SOB. 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 Fernandez and found to have severe CAD, CHAUNCEY placed in proximal LAD - On Brilinta - Dr. Melvin, consulted, recommended further medical management, apprec recs - CAD s/p 3v CABG with subsequent staph sternal infection 1 year after - CP overnight, Trop downtrending from 0.3 -> 0.2, EKG no acute changes, did not respond to nitro #Acute Hypoxic Respiratory Failure 2/2 HFrEF with ischemic cardiomyopathy Exacerbation, resolved - Initially edematous with O2 requirement, s/p diuresis with resolution of sxs - CXR: Patchy right airspace opacities, cardiomegaly, increased pulmonary vasculature - BNP: 1498 at admission - Echo this admission with decreased EF to 20-25% - Continue Lisinopril and Coreg - holding norvasc due to increased mortality in HFrEF - Patient considered for Lifevest vs AICD due to EF; however patient currently states he does not want - Cardiology consulted, apprec recs #COPD -Likely exacerbated by continued Tobacco Abuse - counseled on cessation -Loy prn - patient refused this AM -Increased dyspnea- satting well on RA, lung exam with mild wheeze - CXR and ABG ordered #DM2 -HgA1c (12/30): 9.8 -ACHS Accuchecks -Mild SSI -Hypoglycemia Protocol #MELODY on CKD3b, resolved -Cr: 1.74 on admission - baseline appears to be ~1.5 #HTN - Continue patient's home Lisinopril and Carvedilol, DC patient's home Amlodipine due to HFrEF - Up-titrating BP meds for better BP control, will need continue OP management #Hx of Polysubstance Abuse - Contributing to above presenting diagnosis - UDS: Amphetamines, Methamphetamines - Ativan prn withdrawal/agitation Code: DNAR PCP: [facility] Diet: Consistent Carbohydrate Activity: Ad jensen VTE PPx: Lovenox Dispo: S/p cardiac cath with CHAUNCEY placement. Medical management. Apprec cards recs. Considering lifevest vs AICD. Dyspnea workup pending, possible 2/2 methamphetamine withdrawal. Patient threatening to leave AMA, discussed Risk of leaving and patient voiced understanding, willing to stay in hospital for now for continued management. Anticipate LOS additional 1-2 days pending clinical course.
[2020-08-01 07:35] VITALS: BP 173/92; TEMP 96.3
[2020-08-01] MEDS ORDERED: Carvedilol 6.25 MG TAB PO SCH (08:00)
--- NOTE | 2020-08-01 08:00 | RAD ---
Exam: Chest one view HISTORY:Shortness of breath Comparison: 07/30/2020 FINDINGS: Cardiac silhouette: Normal Aorta: Unremarkable Pulmonary vessels: Normal Costophrenic angles: Clear LUNGS: No masses or consolidation. Chronic lung parenchymal changes. Pneumothorax: None Osseous abnormalities: None IMPRESSION: No acute cardiopulmonary process.
[2020-08-01] MEDS: TICAGRELOR 90 MG TABLET PO SCH (08:18)
[2020-08-01] MEDS: Lisinopril 20 MG TAB PO SCH (08:18)
[2020-08-01] MEDS: Aspirin 81 mg Enteric Coated Tablet PO SCH (08:18)
[2020-08-01] MEDS ORDERED: Enoxaparin Sodium 40 MG/0.4 ML SYRINGE SC SCH (09:00)
[2020-08-01 09:01] LABS: Actual Bicarbonate (HCO3a) 24.5 mEq/L (22-28); Base Excess (BEa) 0.9 mEq/L (-2.0 to +3.0); CO2 Tension 36.1 mmHg (35.0-45.0); Carboxyhemoglobin (COHb) 0.5 gm% (0.0-3.0); Hemoglobin (Hb) 14.6 g/dL (14.0-18.0); O2 Tension (PaO2), arterial 70.8 mmHg (> 80.0); Potassium - ABG Lab 4.15 mmol/L (3.70-5.30); pH, Arterial 7.45 (7.35-7.45)
[2020-08-01 09:31] LABS: ALV-art Gradient 33.805 mmHg (0-20); Puncture Site RB
[2020-08-01] MEDS ORDERED: Furosemide 20 MG TAB PO SCH (09:45)
--- NOTE | 2020-08-01 10:17 | PDOC.BPN ---
- Brief Progress Note Encounter Date: 08/01/20 Encounter Time: 10:05 Called by RN that patient was getting dressed and wanted to sign out AMA. Came to patient bedside, patient states he is going to leave. Explained risks of leaving AMA including but not limited to recurrent [place] or even , especially in setting of worsening HFrEF with EF now 20-25% without lifevest or AICD or continued cardiology recommendations. Patient voiced understanding of risks and still wants to sign out AMA. Told patient to follow up with PCP and Cards as outpatient and patient states he does not plan to follow up with anyone. RX for Brilinta sent in per cardiology recs and patient instructed to pickle cutter and continue taking. RN notified of discussion.
--- NOTE | 2020-08-01 14:48 | EKG ---
Test Reason : STAT Blood Pressure : / mmHG Vent. Rate : 070 BPM Atrial Rate : 070 BPM P-R Int : 150 ms QRS Dur : 096 ms QT Int : 466 ms P-R-T Axes : 064 -23 183 degrees QTc Int : 503 ms Normal sinus rhythm Prolonged QT Abnormal ECG When compared with ECG of 30-JUL-2020 18:35, (Unconfirmed) No significant change was found Confirmed by BRENNA ROLLINS (2) on 08/01/2020 2:48:11 PM Referred By: ILIANA Confirmed By:BRENNA ROLLINS
--- NOTE | 2020-08-01 14:48 | EKG ---
Test Reason : POST-OP Blood Pressure : / mmHG Vent. Rate : 059 BPM Atrial Rate : 059 BPM P-R Int : 152 ms QRS Dur : 102 ms QT Int : 492 ms P-R-T Axes : 065 -24 178 degrees QTc Int : 487 ms Sinus bradycardia Prolonged QT Abnormal ECG When compared with ECG of 29-JUL-2020 22:13, (Unconfirmed) No significant change was found Confirmed by BRENNA ROLLINS (2) on 08/01/2020 2:47:38 PM Referred By: DR. Doug BARRIENTOS Confirmed By:BRENNA ROLLINS
--- NOTE | 2020-08-01 14:49 | EKG ---
Test Reason : AM Blood Pressure : / mmHG Vent. Rate : 055 BPM Atrial Rate : 055 BPM P-R Int : 154 ms QRS Dur : 104 ms QT Int : 484 ms P-R-T Axes : 061 -08 196 degrees QTc Int : 463 ms Sinus bradycardia with occasional Premature ventricular complexes with ventricular escape complexes Prolonged QT Abnormal ECG When compared with ECG of 30-JUL-2020 20:22, (Unconfirmed) Premature ventricular complexes are now Present Sinus rhythm is now with ventricular escape complexes Confirmed by BRENNA ROLLINS (2) on 08/01/2020 2:48:49 PM Referred By: Blaine BARRIENTOS Confirmed By:BRENNA ROLLINS
--- NOTE | 2020-08-01 14:50 | EKG ---
Test Reason : Blood Pressure : / mmHG Vent. Rate : 054 BPM Atrial Rate : 054 BPM P-R Int : 152 ms QRS Dur : 104 ms QT Int : 452 ms P-R-T Axes : 058 -18 168 degrees QTc Int : 428 ms Sinus bradycardia Abnormal ECG When compared with ECG of 31-JUL-2020 05:53, (Unconfirmed) Premature ventricular complexes are no longer Present Sinus rhythm is no longer with ventricular escape complexes Confirmed by BRENNA ROLLINS (2) on 08/01/2020 2:49:52 PM Referred By: ILIANA Confirmed By:BRENNA ROLLINS
--- NOTE | 2020-08-01 15:01 | EKG ---
Test Reason : STAT Blood Pressure : / mmHG Vent. Rate : 052 BPM Atrial Rate : 052 BPM P-R Int : 154 ms QRS Dur : 106 ms QT Int : 496 ms P-R-T Axes : 014 037 217 degrees QTc Int : 461 ms Sinus bradycardia with occasional Premature ventricular complexes Prolonged QT Abnormal ECG When compared with ECG of 31-JUL-2020 07:47, (Unconfirmed) Premature ventricular complexes are now Present T wave inversion now evident in Inferior leads Confirmed by BRENNA ROLLINS (2) on 08/01/2020 3:01:17 PM Referred By: JOO Confirmed By:BRENNA ROLLINS
[2020-08-01] MEDS ORDERED: Fluticasone Propionate Nasal Spray 16 gm Bottle NASAL SCH (21:00)
--- NOTE | 2020-08-02 03:38 | DIS ---
DATE OF ADMISSION: 07/29/2020 DATE OF DISCHARGE: 08/01/2020 The patient left against medical advice. RESIDENT: Russel May MD ADMITTING ATTENDING: Tomas Frank MD DISCHARGE ATTENDING: Jono Hardy MD CONSULTS: Cardiology, Dr. Fernandez and Dr. Melvin. PROCEDURES: 1. Cardiac catheterization with placement of drug-eluting stent in the proximal LAD performed on 07/19/2019. 2. Chest x-ray on 07/29/2020, demonstrating patchy right basilar air space disease, cardiomegaly, and prominence of the pulmonary vasculature. 3. Chest x-ray on 07/30/2020, demonstrating cardiomegaly and improved bibasilar opacities. 4. Chest x-ray on 08/01/2020, demonstrating no acute cardiopulmonary process. 5. Echocardiogram performed on 07/31/2020, demonstrating a severely depressed overall left ventricular function with an ejection fraction of 20% to 25%. PRIMARY DIAGNOSES: 1. [id number] myocardial infarction, type 1. 2. Acute hypoxic respiratory failure secondary to heart failure with ejection fraction with ischemic cardiomyopathy exacerbation, resolved. SECONDARY DIAGNOSES: 1. Heart failure with reduced ejection fraction with an EF of 20% to 25%. 2. Chronic obstructive pulmonary disease. 3. Type 2 diabetes. 4. Chronic kidney disease 3B. 5. Hypertension. 6. History of methamphetamine abuse. DISCHARGE MEDICATIONS: 1. Brilinta 90 mg p.o. b.i.d. 2. Coreg 6.25 mg p.o. b.i.d. 3. Aspirin 81 mg p.o. daily. 4. Atorvastatin 40 mg p.o. at bedtime. 5. Lisinopril 40 mg p.o. daily. 6. Metformin 1000 mg p.o. b.i.d. 7. Ventolin HFA inhaler two puffs q.4 hours p.r.n. DISCONTINUED MEDICATIONS: 1. Amlodipine 10 mg p.o. daily. 2. Prednisone 40 mg p.o. daily. 3. Carvedilol 3.125 mg p.o. b.i.d. HISTORY OF PRESENT ILLNESS AND HOSPITAL COURSE: The patient is a 69-year-old male with past medical history of COPD, CAD status post CABG in 2012 and [place], who presented to the emergency department with a week of intermittent shortness of breath and dyspnea on exertion. The patient endorsed substernal chest pain and a fullness without radiation. States the pain was worse with deep inspiration, but not worse with activity. In the ED, he was found to have an indeterminate troponin. EKG similar to previous and was started on therapeutic Lovenox, nitroglycerin paste, aspirin, azithromycin, Lasix, Rocephin, and given albuterol treatments. He was then admitted to the floor for further evaluation and management. Initially, the patient was treated for acute hypoxic respiratory failure secondary to CHF exacerbation and was diuresed well. On the first night of hospitalization, the patient began to experience worsening chest pain and shortness of breath. Troponin was obtained, which was elevated and a repeat EKG showed ST depressions. Cardiology was notified, who took the patient for cardiac catheterization. See cardiac catheterization report for full details. Ultimately, a drug-eluting stent was placed in the proximal LAD and the patient was transferred to the ICU. In the ICU post catheterization, the patient did very well and was continued on the appropriate medications and blood pressure medications were titrated as needed. His amlodipine was discontinued due to his heart failure due to his ejection fraction. A repeat echocardiogram showed a worsening of his ejection fraction. I discussed with the patient due to his worsening ejection fraction that he would be a candidate for a LifeVest and possible AICD. The patient states that he does not want this and wants to leave AMA. After a long discussion, the patient agreed to spend another night to continue to receive workup and management. The following day, the patient stated that he wanted to leave against medical advice. Discussed with the patient the risks of leaving against medical advice including the risk of due to incomplete workup and cardiac management. patient financial coordinator had arranged for the patient to have followup Cardiology and primary care physician appointments; however, the patient states that he does not plan to follow up with anyone. Appropriate prescriptions were sent to the pharmacy. The patient was encouraged to abstain from substance abuse as this likely a strong contributor to his overall poor cardiac health. The patient then signed out against medical advice. DISPOSITION: Against medical advice. The patient voiced understanding of the risk of leaving against vice president medical affairs and all questions were answered prior to him leaving. Job ID: [id number] [facility]
[2020-08-02] MEDS ORDERED: Furosemide 20 MG TAB PO SCH (09:00)
--- NOTE | 2020-08-04 13:22 | EKG ---
Test Reason : CP Blood Pressure : / mmHG Vent. Rate : 078 BPM Atrial Rate : 078 BPM P-R Int : 152 ms QRS Dur : 104 ms QT Int : 432 ms P-R-T Axes : 070 -21 169 degrees QTc Int : 492 ms Normal sinus rhythm Prolonged QT Abnormal ECG When compared with ECG of 29-JUL-2020 09:06, (Unconfirmed) No significant change was found Confirmed by DR. Doug BARRIENTOS ([id number]) on 08/04/2020 1:21:54 PM Referred By: JOO Confirmed By:DR. Doug BARRIENTOS
--- NOTE | 2020-08-04 13:22 | EKG ---
Test Reason : STAT Blood Pressure : / mmHG Vent. Rate : 062 BPM Atrial Rate : 062 BPM P-R Int : 146 ms QRS Dur : 112 ms QT Int : 504 ms P-R-T Axes : 052 -21 200 degrees QTc Int : 511 ms Normal sinus rhythm Prolonged QT Abnormal ECG No previous ECGs available Confirmed by DR. Doug BARRIENTOS ([id number]) on 08/04/2020 1:22:28 PM Referred By: LOUIS Confirmed By:DR. Doug BARRIENTOS
--- NOTE | 2020-08-04 13:24 | EKG ---
Test Reason : Blood Pressure : / mmHG Vent. Rate : 055 BPM Atrial Rate : 055 BPM P-R Int : 154 ms QRS Dur : 094 ms QT Int : 530 ms P-R-T Axes : 044 -27 191 degrees QTc Int : 507 ms Sinus bradycardia with occasional Premature ventricular complexes and Fusion complexes Prolonged QT Abnormal ECG When compared with ECG of 29-JUL-2020 22:13, (Unconfirmed) Fusion complexes are now Present Premature ventricular complexes are now Present Confirmed by DR. Doug BARRIENTOS ([id number]) on 08/04/2020 1:23:45 PM Referred By: ILIANA Confirmed By:DR. Doug BARRIENTOS
== END 2020-08-01 10:10 | disposition left against medical advice (07) | DRG 246 ==
LOC: ERS 08:53 → ERHOLD 13:33 → 2NO 17:26 → CCU 07-30 20:54 → 2NO 07-31 17:44
PROVIDERS: ADMIT Family Medicine; ATTEND Family Medicine
PROC: 027034Z Dilation of Coronary Artery, One Artery with Drug-eluting Intraluminal Device, Percutaneous Approach (ICD-10-PCS; principal; 2020-07-30)
PROC: 4A023N7 Measurement of Cardiac Sampling and Pressure, Left Heart, Percutaneous Approach (ICD-10-PCS; 2020-07-30)
PROC: B2131ZZ Fluoroscopy of Multiple Coronary Artery Bypass Grafts using Low Osmolar Contrast (ICD-10-PCS; 2020-07-30)
PROC: B2151ZZ Fluoroscopy of Left Heart using Low Osmolar Contrast (ICD-10-PCS; 2020-07-30)
DX: I21.4 Non-ST elevation (NSTEMI) myocardial infarction (principal); J96.01 Acute respiratory failure with hypoxia; I50.22 Chronic systolic (congestive) heart failure; I13.0 Hypertensive heart and chronic kidney disease with heart failure and stage 1 through stage 4 chronic kidney disease, or unspecified chronic kidney disease; N17.9 Acute kidney failure, unspecified; Z53.29 Procedure and treatment not carried out because of patient's decision for other reasons; I25.5 Ischemic cardiomyopathy; E11.22 Type 2 diabetes mellitus with diabetic chronic kidney disease; N18.32 Chronic kidney disease, stage 3b; Z20.828 Contact with and (suspected) exposure to other viral communicable diseases; J43.9 Emphysema, unspecified; E11.65 Type 2 diabetes mellitus with hyperglycemia; F15.10 Other stimulant abuse, uncomplicated; F19.10 Other psychoactive substance abuse, uncomplicated; F17.210 Nicotine dependence, cigarettes, uncomplicated; I45.10 Unspecified right bundle-branch block; I25.10 Atherosclerotic heart disease of native coronary artery without angina pectoris; Z95.1 Presence of aortocoronary bypass graft; I25.2 Old myocardial infarction; Z79.84 Long term (current) use of oral hypoglycemic drugs; Z79.51 Long term (current) use of inhaled steroids; Z79.52 Long term (current) use of systemic steroids; Z79.82 Long term (current) use of aspirin; Z79.899 Other long term (current) drug therapy
CPT/HCPCS: 36415; 36416; 71045; 76942; 80048; 80053; 80061; 80306; 82553; 82805; 83880; 84145; 84484; 85025; 85347; 87040; 92928; 93005; 93010; 93306; 93459; 96365; 96372; 96375; C1874; C9600; J0456; J0696; J1644; J1650; J1940; J2001; J2250; J2270; J3010; J7620; Q9967; U0002

== ENCOUNTER 2020-12-05 12:55 | Emergency (ER) | payer MEDICARE, MEDICAID ==
--- NOTE | 2020-12-05 13:40 | RAD ---
EXAM: Chest PA and lateral: HISTORY: Increased weakness. Frequent falls. COMPARISON: 08/01/2020 07/16/20202006 FINDINGS: Heart: Normal cardiac silhouette Aorta: Unremarkable Pulmonary vessels: Normal Costophrenic angles: Costophrenic angles are clear. Lungs: No consolidation or masses. Chronic changes in the lung bases. Pneumothorax: No pneumothorax Osseous structures: Old left rib fractures. IMPRESSION: No acute cardiopulmonary process.
[2020-12-05 13:54] LABS: #Eosinphils 0.3 thou/uL (0.0-0.7); #Lymphocytes 1.5 thou/uL (1.20-3.40); #Monocytes 0.4 thou/uL (0.11-0.59); #Neutrophils 5.4 thou/uL (1.40-6.50); %Basophils 0.3 % (0.0-1.0); %Eosinophils 4.3 % (0.0-10.0); %Lymphocytes 19.8 % (21.0-51.0); %Monocytes 5.4 % (0.0-10.0); %Neutrophils 70.3 % (42.0-75.0); Hemoglobin 13.4 g/dL (14.0-18.0); Mean Corpuscular HGB CONC 32.9 g/dL (32.0-36.0); Mean Corpuscular Hemoglobin 28.3 pg (27.0-31.0); Mean Platelet Volume 8.3 fL (7.4-10.4); Platelet Count 278 thou/uL (130-400); RBC Distribution Width 13.5 % (11.5-14.5); Red Blood Cell (RBC) Count 4.73 mill/uL (4.70-6.10); White Blood Cell (WBC) Count 7.7 thou/uL (4.8-10.8)
[2020-12-05 14:14] LABS: ALT (SGPT) 20 U/L (8-55); AST (SGOT) 18 U/L (5-34); Albumin 3.9 g/dL (3.4-4.8); Alkaline Phosphatase 98 U/L (40-110); Anion Gap 11 mmol/L (10-20); BUN (Urea Nitrogen) 15 mg/dL (8.4-25.7); Bilirubin, Total 0.5 mg/dL (0.2-1.2); Calc. Creatinine Clearance 0 mL/min (70-130); Calcium 9.4 mg/dL (7.8-10.44); Carbon Dioxide 29 mmol/L (23-31); Chloride 101 mmol/L (98-107); Globulin 2.8 g/dL (2.4-3.5); Glucose 274 mg/dL (80-115); Protein, Total 6.7 g/dL (5.8-8.1); Sodium 136 mmol/L (136-145)
[2020-12-05 14:36] LABS: CKMB 3.7 ng/mL (0-6.6)
[2020-12-05 15:34] LABS: Bilirubin Negative (Negative); Blood, Urine Negative (Negative); Clarity Clear (Clear); Glucose, Urine (Dipstick) Greater than 1000 mg/dL (Negative); Ketone, Urine Negative (Negative); Leukocyte Negative Leu/uL (Negative); Nitrite Negative (Negative); Protein, Urine (Dipstick) Negative (Neg-Trace); Specific Gravity, Urine 1.022 (1.002-1.036); Urobilinogen Normal mg/dL (Less than 2)
== END 2020-12-05 16:11 | disposition left against medical advice (07) ==
LOC: ERS 12:55
DX: Z53.21 Procedure and treatment not carried out due to patient leaving prior to being seen by health care provider (principal)
CPT/HCPCS: 36415; 71046; 80053; 81003; 82553; 84484; 85025; 93005

== ENCOUNTER 2021-08-10 10:58 | Observation (INO) | payer MEDICARE, MEDICAID ==
[2021-08-10 12:39] LABS: #Eosinphils 0.2 thou/uL (0.0-0.7); #Lymphocytes 1.3 thou/uL (1.20-3.40); #Monocytes 0.4 thou/uL (0.11-0.59); #Neutrophils 4.9 thou/uL (1.40-6.50); %Basophils 0.6 % (0.0-1.0); %Eosinophils 2.7 % (0.0-10.0); %Lymphocytes 19.4 % (21.0-51.0); %Monocytes 6.4 % (0.0-10.0); %Neutrophils 70.9 % (42.0-75.0); Hemoglobin 15.1 g/dL (14.0-18.0); Mean Corpuscular HGB CONC 33.3 g/dL (32.0-36.0); Mean Corpuscular Hemoglobin 28.4 pg (27.0-31.0); Mean Corpuscular Volume 85.3 fL (78.0-98.0); Mean Platelet Volume 8.3 fL (7.4-10.4); Platelet Count 290 thou/uL (130-400); RBC Distribution Width 13.5 % (11.5-14.5); Red Blood Cell (RBC) Count 5.33 mill/uL (4.70-6.10); White Blood Cell (WBC) Count 6.9 thou/uL (4.8-10.8)
[2021-08-10 13:02] LABS: ALT (SGPT) 18 U/L (8-55); AST (SGOT) 14 U/L (5-34); Albumin 4.1 g/dL (3.4-4.8); Alkaline Phosphatase 110 U/L (40-110); Anion Gap 13 mmol/L (10-20); BUN (Urea Nitrogen) 16 mg/dL (8.4-25.7); Bilirubin, Total 0.4 mg/dL (0.2-1.2); Calc. Creatinine Clearance 0 mL/min (70-130); Calcium 9.9 mg/dL (7.8-10.44); Carbon Dioxide 26 mmol/L (23-31); Chloride 100 mmol/L (98-107); Globulin 2.8 g/dL (2.4-3.5); Glucose 263 mg/dL (80-115); Lipase 23 U/L (8-78); Potassium 4.6 mmol/L (3.5-5.1); Protein, Total 6.9 g/dL (5.8-8.1); Sodium 134 mmol/L (136-145)
[2021-08-10] MEDS ORDERED: Fentanyl 100 MCG/2 ML VIAL ONE (13:37)
[2021-08-10] MEDS ORDERED: Boostrix 0.5 ML (Tdap) VIAL ONE (13:37)
[2021-08-10] MEDS ORDERED: Ketorolac Tromethamine 30 MG/ML VIAL ONE (14:19)
[2021-08-10] MEDS ORDERED: Ondansetron ODT 4 MG TAB PO PRN (15:51)
[2021-08-10] MEDS ORDERED: Ondansetron PF 4 MG/2 ML Vial IVP PRN (15:51)
[2021-08-10] MEDS ORDERED: Acetaminophen 650 MG Suppository PR PRN (15:51)
[2021-08-10] MEDS ORDERED: hydrOXYzine 25 MG TAB PO PRN (16:13)
[2021-08-10] MEDS ORDERED: Insulin Regular 300 UNITS/3 ML VIAL SC PRN (16:34)
[2021-08-10] MEDS ORDERED: Dextrose 5% in Water 1,000 ML IV PRN (16:34)
[2021-08-10] MEDS ORDERED: HumaLOG 300 UNITS/3 ML VIAL SC PRN (16:34)
[2021-08-10] MEDS ORDERED: Dextrose 50% Abboject 50 ML SYRINGE SLOW IVP PRN (16:34)
[2021-08-10] MEDS ORDERED: Albuterol Sulfate 1.25 MG/3 ML NEB NEB PRN (16:51)
[2021-08-10 17:12] VITALS: BMI 31.8
[2021-08-10 17:44] LABS: Cardiac Risk 5.9 (Less than 4.5); Troponin I Less than 0.010 ng/mL (< 0.028)
[2021-08-10] MEDS: metFORMIN 500 MG TAB PO SCH (17:56)
[2021-08-10] MEDS: Nicotine 14 MG PATCH TD SCH (18:00)
[2021-08-10 18:02] LABS: Syphilis Antibody Nonreactive (Nonreactive); Syphilis Antibody Index 0.04 S/CO (<1.00 Non-Reactive)
[2021-08-10 18:03] LABS: Thyroid Stimulating Hormone 2.1342 uIU/mL (0.35-4.94)
[2021-08-10 18:09] LABS: Hep C IgG Ab Reflex HepC Qnt (NonReactive); Hep C Index 7.61 S/CO (0-0.79)
[2021-08-10] MEDS: Acetaminophen 325 MG TAB PO PRN (18:40)
[2021-08-10 19:11] LABS: SARS-CoV-2 NAA Rapid Test Not Detected (NotDetected)
[2021-08-10] MEDS: Sulfameth/Trimethoprim DS 800-160mg TAB PO SCH (19:46)
[2021-08-10] MEDS: Carvedilol 6.25 MG TAB PO SCH (19:46)
[2021-08-10] MEDS: Rifampin 300 MG CAP PO SCH (19:46)
[2021-08-11] MEDS ORDERED: traMADol HCl 50 MG TAB PO SCH (01:00)
[2021-08-11 01:09] LABS: Amphetamine Detected (NotDetected); Barbiturates Screen Not Detected (NotDetected); Benzodiazepine Screen Not Detected (NotDetected); Cocaine Metabolite Screen Not Detected (NotDetected); Methadone Not Detected (NotDetected); Methamphetamine Detected (NotDetected); Opiate Screen Not Detected (NotDetected); Oxycodone Screen Not Detected (NotDetected); Phencyclidine (PCP) Not Detected (NotDetected); THC/Cannabinoid Screen Not Detected (NotDetected); Tricyclic Screen Not Detected (NotDetected)
[2021-08-11 08:33] LABS: Anion Gap 12 mmol/L (10-20); BUN (Urea Nitrogen) 21 mg/dL (8.4-25.7); Calc. Creatinine Clearance 61 mL/min (70-130); Carbon Dioxide 28 mmol/L (23-31); Chloride 101 mmol/L (98-107); Glucose 139 mg/dL (80-115); Sodium 136 mmol/L (136-145)
[2021-08-11] MEDS: Aspirin 81 mg Enteric Coated Tablet PO SCH (08:38)
[2021-08-11] MEDS: metFORMIN 500 MG TAB PO SCH ×2 (08:38→18:11)
[2021-08-11] MEDS: Sulfameth/Trimethoprim DS 800-160mg TAB PO SCH ×2 (08:39→19:56)
[2021-08-11] MEDS: Atorvastatin Calcium 40 MG TAB PO SCH (08:39)
[2021-08-11] MEDS: Carvedilol 6.25 MG TAB PO SCH (08:39)
[2021-08-11] MEDS: Rifampin 300 MG CAP PO SCH ×2 (08:39→19:56)
[2021-08-11] MEDS: Alogliptin 6.25 MG TAB PO SCH (08:43)
[2021-08-11] MEDS: Mometasone 200 MCG/Formoterol 5 MCG 120 PUFF INHALER INH SCH ×2 (09:00→18:12)
[2021-08-11] MEDS ORDERED: Enoxaparin Sodium 30 MG/0.3 ML SYRINGE SC SCH (09:00)
[2021-08-11] MEDS ORDERED: Lisinopril 20 MG TAB PO SCH ×3 (09:00→21:00)
[2021-08-11] MEDS: traMADol HCl 50 MG TAB PO PRN (12:58)
[2021-08-11] MEDS: Acetaminophen 325 MG TAB PO PRN (18:10)
[2021-08-11] MEDS: Carvedilol 3.125 MG TAB PO SCH (18:10)
[2021-08-11] MEDS: Nicotine 14 MG PATCH TD SCH (18:11)
[2021-08-12 05:56] LABS: Anion Gap 14 mmol/L (10-20); BUN (Urea Nitrogen) 26 mg/dL (8.4-25.7); Calc. Creatinine Clearance 58 mL/min (70-130); Calcium 9.3 mg/dL (7.8-10.44); Carbon Dioxide 25 mmol/L (23-31); Chloride 104 mmol/L (98-107); Glucose 96 mg/dL (80-115); Potassium 4.7 mmol/L (3.5-5.1); Sodium 138 mmol/L (136-145)
[2021-08-12] MEDS: metFORMIN 500 MG TAB PO SCH (08:54)
[2021-08-12] MEDS: Carvedilol 3.125 MG TAB PO SCH (08:54)
[2021-08-12] MEDS: Aspirin 81 mg Enteric Coated Tablet PO SCH (08:55)
[2021-08-12] MEDS: Sulfameth/Trimethoprim DS 800-160mg TAB PO SCH (08:55)
[2021-08-12] MEDS: Atorvastatin Calcium 40 MG TAB PO SCH (08:55)
[2021-08-12] MEDS: Alogliptin 6.25 MG TAB PO SCH (08:55)
[2021-08-12] MEDS: Rifampin 300 MG CAP PO SCH (08:58)
[2021-08-12] MEDS: traMADol HCl 50 MG TAB PO PRN (09:00)
[2021-08-12] MEDS ORDERED: Enoxaparin Sodium 40 MG/0.4 ML SYRINGE SC SCH (09:00)
[2021-08-12] MEDS: Acetaminophen 325 MG TAB PO SCH ×2 (09:15→13:24)
[2021-08-12 11:30] VITALS: TEMP 98.3
[2021-08-12 13:56] VITALS: BP 126/66
[2021-08-12] MEDS ORDERED: Lisinopril 20 MG TAB PO SCH (21:00)
[2021-08-13 18:08] LABS: HIV-1 Quantitative, RNA PCR <20 copies/mL (.)
== END 2021-08-12 16:00 | disposition left against medical advice (07) ==
LOC: ERS 10:58 → 2SW 14:12
PROVIDERS: ADMIT Family Medicine; ATTEND Family Medicine
DX: R55 Syncope and collapse (principal); S20.211A Contusion of right front wall of thorax, initial encounter; I08.3 Combined rheumatic disorders of mitral, aortic and tricuspid valves; R94.31 Abnormal electrocardiogram [ECG] [EKG]; I13.0 Hypertensive heart and chronic kidney disease with heart failure and stage 1 through stage 4 chronic kidney disease, or unspecified chronic kidney disease; E11.22 Type 2 diabetes mellitus with diabetic chronic kidney disease; N18.32 Chronic kidney disease, stage 3b; I50.20 Unspecified systolic (congestive) heart failure; I25.10 Atherosclerotic heart disease of native coronary artery without angina pectoris; J44.9 Chronic obstructive pulmonary disease, unspecified; E11.69 Type 2 diabetes mellitus with other specified complication; M86.60 Other chronic osteomyelitis, unspecified site; E11.51 Type 2 diabetes mellitus with diabetic peripheral angiopathy without gangrene; B19.20 Unspecified viral hepatitis C without hepatic coma; F32.A Depression, unspecified; F41.9 Anxiety disorder, unspecified; R00.1 Bradycardia, unspecified; I25.2 Old myocardial infarction; F17.210 Nicotine dependence, cigarettes, uncomplicated; F15.10 Other stimulant abuse, uncomplicated; E66.9 Obesity, unspecified; Z68.31 Body mass index [BMI] 31.0-31.9, adult; Z20.822 Contact with and (suspected) exposure to COVID-19; Z53.29 Procedure and treatment not carried out because of patient's decision for other reasons; Z79.84 Long term (current) use of oral hypoglycemic drugs; Z79.82 Long term (current) use of aspirin; Z79.2 Long term (current) use of antibiotics; Z79.899 Other long term (current) drug therapy; Z95.1 Presence of aortocoronary bypass graft; W19.XXXA Unspecified fall, initial encounter
CPT/HCPCS: 70450; 71045; 72125; 80048 ×2; 80061; 80306; 82550; 82962 ×3; 83605; 83690; 84484 ×2; 86780; 86803; 87040; 87522; 87536; 90471; 90715; 93005; 93306; 96372 ×2; 96374; 96375; 97139 ×3; 99285; G0378 ×4; U0002; 36415; 36416; 80053; 84443; 85025; J1650; J1815; J1885; J3010

== ENCOUNTER 2021-12-10 21:30 | Inpatient (IN) | payer OTHER, MEDICAID, MEDICARE ==
[2021-12-10 22:21] LABS: #Basophils 0.1 thou/uL (0.0-0.2); #Eosinphils 0.2 thou/uL (0.0-0.7); #Lymphocytes 1.5 thou/uL (1.20-3.40); #Monocytes 0.4 thou/uL (0.11-0.59); #Neutrophils 5.5 thou/uL (1.40-6.50); %Basophils 0.7 % (0.0-1.0); %Eosinophils 2.7 % (0.0-10.0); %Monocytes 5.6 % (0.0-10.0); Hemoglobin 13.4 g/dL (14.0-18.0); Mean Corpuscular HGB CONC 33.4 g/dL (32.0-36.0); Mean Corpuscular Hemoglobin 29.5 pg (27.0-31.0); Mean Corpuscular Volume 88.5 fL (78.0-98.0); Mean Platelet Volume 7.5 fL (7.4-10.4); Platelet Count 386 thou/uL (130-400); RBC Distribution Width 12.1 % (11.5-14.5); Red Blood Cell (RBC) Count 4.55 mill/uL (4.70-6.10); White Blood Cell (WBC) Count 7.6 thou/uL (4.8-10.8)
[2021-12-10 22:41] LABS: ALT (SGPT) 16 U/L (8-55); AST (SGOT) 10 U/L (5-34); Albumin 3.9 g/dL (3.4-4.8); Alkaline Phosphatase 97 U/L (40-110); Anion Gap 15 mmol/L (10-20); BUN (Urea Nitrogen) 19 mg/dL (8.4-25.7); Bilirubin, Total 0.2 mg/dL (0.2-1.2); Calc. Creatinine Clearance 0 mL/min (70-130); Calcium 9.8 mg/dL (7.8-10.44); Carbon Dioxide 26 mmol/L (23-31); Chloride 99 mmol/L (98-107); Globulin 3.3 g/dL (2.4-3.5); Glucose 258 mg/dL (80-115); Potassium 4.7 mmol/L (3.5-5.1); Protein, Total 7.2 g/dL (5.8-8.1); Sodium 135 mmol/L (136-145)
[2021-12-10] MEDS ORDERED: HYDROcodone/Acetaminophen 5/325 mg Tablet ONE (22:48)
[2021-12-10] MEDS ORDERED: Cefepime 2 GM VIAL ONE (22:57)
[2021-12-10] MEDS ORDERED: Vancomycin 1.5 GRAM/300 ML BAG 1.5 GM in Premix Bag 1 BAG IVPB SCH (23:15)
[2021-12-10] MEDS ORDERED: Acetaminophen 325 MG TAB PO PRN (23:48)
[2021-12-11] MEDS ORDERED: HumaLOG 300 UNITS/3 ML VIAL SC PRN ×2 (00:12)
[2021-12-11] MEDS ORDERED: Dextrose 50% Abboject 50 ML SYRINGE SLOW IVP PRN (00:12)
[2021-12-11] MEDS ORDERED: Dextrose 5% in Water 1,000 ML IV PRN (00:12)
[2021-12-11] MEDS ORDERED: hydrOXYzine 25 MG TAB PO PRN (00:48)
[2021-12-11] MEDS ORDERED: Lisinopril 20 MG TAB PO SCH (01:00)
[2021-12-11 01:09] VITALS: BMI 32.5
[2021-12-11] MEDS ORDERED: Albuterol 200 PUFF (6.7GM INHALER) INH PRN (01:18)
[2021-12-11] MEDS: Nicotine 14 MG PATCH TD SCH ×2 (02:31→22:57)
[2021-12-11 03:26] LABS: SARS-CoV-2 NAA Rapid Test Not Detected (NotDetected)
[2021-12-11 06:53] LABS: #Eosinphils 0.2 thou/uL (0.0-0.7); #Lymphocytes 1.5 thou/uL (1.20-3.40); #Monocytes 0.6 thou/uL (0.11-0.59); #Neutrophils 4.6 thou/uL (1.40-6.50); %Basophils 0.6 % (0.0-1.0); %Eosinophils 2.8 % (0.0-10.0); %Lymphocytes 22.1 % (21.0-51.0); %Neutrophils 66.6 % (42.0-75.0); Hemoglobin 12.8 g/dL (14.0-18.0); Mean Corpuscular HGB CONC 32.5 g/dL (32.0-36.0); Mean Corpuscular Hemoglobin 28.8 pg (27.0-31.0); Mean Corpuscular Volume 88.6 fL (78.0-98.0); Mean Platelet Volume 7.8 fL (7.4-10.4); Platelet Count 365 thou/uL (130-400); RBC Distribution Width 12.1 % (11.5-14.5); Red Blood Cell (RBC) Count 4.47 mill/uL (4.70-6.10); White Blood Cell (WBC) Count 6.9 thou/uL (4.8-10.8)
[2021-12-11] MEDS: Mometasone 200 MCG/Formoterol 5 MCG 120 PUFF INHALER INH SCH ×2 (07:04→19:28)
[2021-12-11] MEDS: metroNIDAZOLE 500 MG in Premix Bag 1 BAG IVPB SCH ×3 (07:09→19:23)
[2021-12-11 07:13] LABS: ALT (SGPT) 12 U/L (8-55); AST (SGOT) 9 U/L (5-34); Albumin 3.6 g/dL (3.4-4.8); Alkaline Phosphatase 90 U/L (40-110); Anion Gap 11 mmol/L (10-20); BUN (Urea Nitrogen) 18 mg/dL (8.4-25.7); Bilirubin, Total 0.3 mg/dL (0.2-1.2); Calc. Creatinine Clearance 75 mL/min (70-130); Calcium 9.2 mg/dL (7.8-10.44); Carbon Dioxide 28 mmol/L (23-31); Chloride 100 mmol/L (98-107); Globulin 2.8 g/dL (2.4-3.5); Glucose 144 mg/dL (80-115); Potassium 4.3 mmol/L (3.5-5.1); Protein, Total 6.4 g/dL (5.8-8.1); Sodium 135 mmol/L (136-145)
[2021-12-11] MEDS: Atorvastatin Calcium 40 MG TAB PO SCH (08:52)
[2021-12-11] MEDS: Carvedilol 6.25 MG TAB PO SCH ×2 (08:52→20:28)
[2021-12-11] MEDS: Lisinopril 20 MG TAB PO SCH (08:52)
[2021-12-11] MEDS: LACTINEX 1 TAB PO SCH (08:52)
[2021-12-11] MEDS: metFORMIN 500 MG TAB PO SCH ×2 (08:53→18:46)
[2021-12-11] MEDS: Heparin 5,000 UNITS/ML VIAL SC SCH ×3 (08:53→20:28)
[2021-12-11] MEDS ORDERED: Vancomycin 1 GM in Premix Bag 1 BAG IVPB SCH (09:00)
[2021-12-11] MEDS ORDERED: Iopamidol 370 76% 50 ML VIAL FS ONE (09:11)
[2021-12-11] MEDS: traMADol HCl 50 MG TAB PO PRN ×2 (11:45→20:28)
[2021-12-11] MEDS: Vancomycin HCl 750 MG in Sodium Chloride 0.9% 250 ML 250 ML IVPB SCH (12:45)
[2021-12-11] MEDS ORDERED: Lidocaine 1% (PF) 30 ML VIAL ONE (16:02)
[2021-12-11] MEDS ORDERED: Fentanyl 250 MCG/5 ML VIAL ONE (16:45)
[2021-12-11] MEDS ORDERED: Enoxaparin Sodium 40 MG/0.4 ML SYRINGE SC SCH (21:00)
[2021-12-11] MEDS ORDERED: Cefepime 2 GM in Sodium Chloride 0.9% 100 ML IVPB SCH (23:00)
[2021-12-12] MEDS: Vancomycin HCl 750 MG in Sodium Chloride 0.9% 250 ML 250 ML IVPB SCH (00:05)
[2021-12-12] MEDS: metroNIDAZOLE 500 MG in Premix Bag 1 BAG IVPB SCH ×4 (01:16→21:37)
[2021-12-12] MEDS: traMADol HCl 50 MG TAB PO PRN ×2 (05:08→16:08)
[2021-12-12] MEDS: Mometasone 200 MCG/Formoterol 5 MCG 120 PUFF INHALER INH SCH ×2 (07:51→19:25)
[2021-12-12] MEDS ORDERED: Sodium Chloride 0.9% 1,000 ML IV SCH (08:00)
[2021-12-12] MEDS: Lisinopril 20 MG TAB PO SCH (09:11)
[2021-12-12] MEDS: metFORMIN 500 MG TAB PO SCH ×2 (09:11→16:09)
[2021-12-12] MEDS: LACTINEX 1 TAB PO SCH (09:11)
[2021-12-12] MEDS: Atorvastatin Calcium 40 MG TAB PO SCH (09:11)
[2021-12-12] MEDS: Carvedilol 6.25 MG TAB PO SCH ×2 (09:13→21:37)
[2021-12-12] MEDS: Heparin 5,000 UNITS/ML VIAL SC SCH ×3 (09:13→21:37)
[2021-12-12] MEDS: Cefepime 2 GM in Sodium Chloride 0.9% 100 ML IVPB SCH ×2 (11:16→22:54)
[2021-12-12 11:25] LABS: Vancomycin, Trough 10.2 ug/mL
[2021-12-12] MEDS: Vancomycin 1 GM in Premix Bag 1 BAG IVPB SCH (12:20)
[2021-12-12] MEDS ORDERED: Bupivacaine PF 0.5% 30 ML VIAL ONE (12:42)
[2021-12-12] MEDS ORDERED: Xylocaine 1% w/ Epi 1:100K 10 ML VIAL ONE (12:42)
[2021-12-12] MEDS ORDERED: Fentanyl 250 MCG/5 ML VIAL ONE (12:54)
[2021-12-12] MEDS ORDERED: Nitroglycerin 0.4 MG TAB (25 Tab Bottle) ONE (13:07)
[2021-12-12] MEDS ORDERED: Nitroglycerin 0.4 MG TAB (25 Tab Bottle) SL PRN (13:55)
[2021-12-12 20:42] LABS: Troponin I 0.012 ng/mL (< 0.028)
[2021-12-12] MEDS: Nicotine 14 MG PATCH TD SCH (22:54)
[2021-12-13] MEDS: Vancomycin 1 GM in Premix Bag 1 BAG IVPB SCH (01:09)
[2021-12-13 05:32] LABS: #Eosinphils 0.3 thou/uL (0.0-0.7); #Lymphocytes 1.5 thou/uL (1.20-3.40); #Monocytes 0.7 thou/uL (0.11-0.59); #Neutrophils 5.3 thou/uL (1.40-6.50); %Basophils 0.4 % (0.0-1.0); %Eosinophils 3.3 % (0.0-10.0); %Lymphocytes 19.4 % (21.0-51.0); %Monocytes 8.5 % (0.0-10.0); %Neutrophils 68.3 % (42.0-75.0); Hemoglobin 13.7 g/dL (14.0-18.0); Mean Corpuscular HGB CONC 32.1 g/dL (32.0-36.0); Mean Corpuscular Hemoglobin 28.5 pg (27.0-31.0); Mean Corpuscular Volume 88.7 fL (78.0-98.0); Mean Platelet Volume 7.6 fL (7.4-10.4); Platelet Count 369 thou/uL (130-400); RBC Distribution Width 12.3 % (11.5-14.5); Red Blood Cell (RBC) Count 4.81 mill/uL (4.70-6.10); White Blood Cell (WBC) Count 7.7 thou/uL (4.8-10.8)
[2021-12-13] MEDS: metroNIDAZOLE 500 MG in Premix Bag 1 BAG IVPB SCH (05:36)
[2021-12-13 05:48] LABS: Anion Gap 13 mmol/L (10-20); BUN (Urea Nitrogen) 17 mg/dL (8.4-25.7); Calc. Creatinine Clearance 77 mL/min (70-130); Calcium 9.5 mg/dL (7.8-10.44); Carbon Dioxide 27 mmol/L (23-31); Chloride 100 mmol/L (98-107); Glucose 120 mg/dL (80-115); Potassium 4.2 mmol/L (3.5-5.1); Sodium 136 mmol/L (136-145)
[2021-12-13 07:19] VITALS: BP 170/81; TEMP 97.4
[2021-12-13] MEDS: Mometasone 200 MCG/Formoterol 5 MCG 120 PUFF INHALER INH SCH (07:50)
[2021-12-13] MEDS ORDERED: Amlodipine 5 MG TAB PO SCH (09:00)
[2021-12-13] MEDS ORDERED: Lisinopril 20 MG TAB PO SCH (09:00)
== END 2021-12-13 09:20 | disposition left against medical advice (07) | DRG 300 ==
LOC: ERS 21:30 → SURG A 23:05 → OBSVTOIN 12-11 11:22 → 2NO 12-12 14:27
PROVIDERS: ADMIT Student in an Organized Health Care Education/Training Program; ATTEND Student in an Organized Health Care Education/Training Program
PROC: B41D1ZZ Fluoroscopy of Aorta and Bilateral Lower Extremity Arteries using Low Osmolar Contrast (ICD-10-PCS; principal; 2021-12-11)
DX: E11.51 Type 2 diabetes mellitus with diabetic peripheral angiopathy without gangrene (principal); Z20.822 Contact with and (suspected) exposure to COVID-19; M86.8X7 Other osteomyelitis, ankle and foot; I50.22 Chronic systolic (congestive) heart failure; I13.0 Hypertensive heart and chronic kidney disease with heart failure and stage 1 through stage 4 chronic kidney disease, or unspecified chronic kidney disease; I47.2 Ventricular tachycardia; E11.69 Type 2 diabetes mellitus with other specified complication; I25.10 Atherosclerotic heart disease of native coronary artery without angina pectoris; K21.9 Gastro-esophageal reflux disease without esophagitis; F17.210 Nicotine dependence, cigarettes, uncomplicated; J43.9 Emphysema, unspecified; N18.30 Chronic kidney disease, stage 3 unspecified; E11.621 Type 2 diabetes mellitus with foot ulcer; L97.529 Non-pressure chronic ulcer of other part of left foot with unspecified severity; E11.65 Type 2 diabetes mellitus with hyperglycemia; F15.10 Other stimulant abuse, uncomplicated; I87.8 Other specified disorders of veins; E78.5 Hyperlipidemia, unspecified; R07.89 Other chest pain; Z53.29 Procedure and treatment not carried out because of patient's decision for other reasons; I49.3 Ventricular premature depolarization; Z95.5 Presence of coronary angioplasty implant and graft; Z71.6 Tobacco abuse counseling; Z95.1 Presence of aortocoronary bypass graft; Z89.432 Acquired absence of left foot; Z79.899 Other long term (current) drug therapy; Z79.84 Long term (current) use of oral hypoglycemic drugs; Z79.82 Long term (current) use of aspirin; Z79.51 Long term (current) use of inhaled steroids; I25.2 Old myocardial infarction; Z90.89 Acquired absence of other organs; Z98.890 Other specified postprocedural states; Z82.49 Family history of ischemic heart disease and other diseases of the circulatory system; Z91.19 Patient's noncompliance with other medical treatment and regimen; Z91.14 Patient's other noncompliance with medication regimen
CPT/HCPCS: 36247; 36415; 36416; 80048; 80053; 80202; 82553; 83605; 83880; 84145; 84484; 85025; 85652; 86140; 87040; 87631; 93005; 93010; 96365; 96374; 96375; G0378; J0692; J1644; J2001; J3010; J3370; J3490; J7050; Q9967; S0020; U0002

== ENCOUNTER 2022-05-09 10:31 | Inpatient (IN) | payer OTHER, MEDICAID ==
[2022-05-09 10:57] LABS: #Eosinphils 0.2 thou/uL (0.0-0.7); #Lymphocytes 1.5 thou/uL (1.20-3.40); #Monocytes 0.9 thou/uL (0.11-0.59); #Neutrophils 9.4 thou/uL (1.40-6.50); %Basophils 0.3 % (0.0-1.0); %Eosinophils 1.5 % (0.0-10.0); %Lymphocytes 12.1 % (21.0-51.0); %Monocytes 7.5 % (0.0-10.0); %Neutrophils 78.5 % (42.0-75.0); Hemoglobin 13.3 g/dL (14.0-18.0); Mean Corpuscular HGB CONC 33.1 g/dL (32.0-36.0); Mean Corpuscular Hemoglobin 28.6 pg (27.0-31.0); Mean Corpuscular Volume 86.4 fL (78.0-98.0); Mean Platelet Volume 8.4 fL (7.4-10.4); Platelet Count 310 thou/uL (130-400); RBC Distribution Width 12.4 % (11.5-14.5); Red Blood Cell (RBC) Count 4.65 mill/uL (4.70-6.10); White Blood Cell (WBC) Count 11.9 thou/uL (4.8-10.8)
[2022-05-09 11:18] LABS: ALT (SGPT) 8 U/L (8-55); AST (SGOT) 8 U/L (5-34); Albumin 3.7 g/dL (3.4-4.8); Alkaline Phosphatase 111 U/L (40-110); Anion Gap 14 mmol/L (10-20); BUN (Urea Nitrogen) 22 mg/dL (8.4-25.7); Bilirubin, Total 0.6 mg/dL (0.2-1.2); Calc. Creatinine Clearance 0 mL/min (70-130); Calcium 9.5 mg/dL (7.8-10.44); Carbon Dioxide 26 mmol/L (23-31); Chloride 96 mmol/L (98-107); Estimated GFR 34; Globulin 3.2 g/dL (2.4-3.5); Glucose 216 mg/dL (80-115); Potassium 4.4 mmol/L (3.5-5.1); Protein, Total 6.9 g/dL (5.8-8.1); Sodium 132 mmol/L (136-145)
[2022-05-09] MEDS ORDERED: Morphine 4 MG/ML VIAL ONE (13:01)
[2022-05-09] MEDS ORDERED: Cefepime 2 GM VIAL ONE (13:03)
[2022-05-09] MEDS ORDERED: Vancomycin 1 GM/200 ML BAG ONE (14:08)
[2022-05-09] MEDS ORDERED: Dextrose 50% Abboject 50 ML SYRINGE SLOW IVP PRN (14:09)
[2022-05-09] MEDS ORDERED: Dextrose 5% in Water 1,000 ML IV PRN (14:09)
[2022-05-09] MEDS ORDERED: HumaLOG 300 UNITS/3 ML VIAL SC PRN ×2 (14:20)
[2022-05-09] MEDS ORDERED: Acetaminophen 325 MG/10.15 ML UDCUP PO PRN (14:59)
[2022-05-09] MEDS ORDERED: Morphine 2 MG/ML VIAL SLOW IVP PRN (14:59)
[2022-05-09] MEDS ORDERED: Lactated Ringer's 1,000 ML IV SCH ×2 (15:00)
[2022-05-09] MEDS ORDERED: Albuterol 200 PUFF (6.7GM INHALER) INH PRN (15:11)
[2022-05-09] MEDS ORDERED: hydrOXYzine 25 MG TAB PO PRN (15:11)
[2022-05-09] MEDS: traMADol HCl 50 MG TAB PO PRN (16:06)
[2022-05-09 18:24] VITALS: BMI 32.1
[2022-05-09] MEDS ORDERED: Vancomycin HCl 500 MG in Sodium Chloride 0.9% 100 ML IVPB SCH (19:15)
[2022-05-09] MEDS: Gabapentin 300 MG CAP PO SCH (19:43)
[2022-05-09] MEDS: Carvedilol 6.25 MG TAB PO SCH (19:43)
[2022-05-10] MEDS: Cefepime 2 GM in Sodium Chloride 0.9% 100 ML IVPB SCH ×2 (02:25→13:43)
[2022-05-10 05:03] LABS: #Eosinphils 0.3 thou/uL (0.0-0.7); #Monocytes 0.6 thou/uL (0.11-0.59); #Neutrophils 5.1 thou/uL (1.40-6.50); %Basophils 0.3 % (0.0-1.0); %Eosinophils 3.9 % (0.0-10.0); %Lymphocytes 14.2 % (21.0-51.0); %Monocytes 8.5 % (0.0-10.0); %Neutrophils 73.1 % (42.0-75.0); Hemoglobin 12.6 g/dL (14.0-18.0); Mean Corpuscular HGB CONC 32.6 g/dL (32.0-36.0); Mean Corpuscular Hemoglobin 28.5 pg (27.0-31.0); Mean Corpuscular Volume 87.6 fL (78.0-98.0); Mean Platelet Volume 8.5 fL (7.4-10.4); Platelet Count 267 thou/uL (130-400); RBC Distribution Width 12.5 % (11.5-14.5)
[2022-05-10 05:23] LABS: Anion Gap 10 mmol/L (10-20); BUN (Urea Nitrogen) 21 mg/dL (8.4-25.7); Calc. Creatinine Clearance 71 mL/min (70-130); Calcium 8.9 mg/dL (7.8-10.44); Carbon Dioxide 27 mmol/L (23-31); Chloride 101 mmol/L (98-107); Estimated GFR 47; Glucose 143 mg/dL (80-115); Potassium 4.2 mmol/L (3.5-5.1); Sodium 134 mmol/L (136-145)
[2022-05-10] MEDS: Mometasone 200 MCG/Formoterol 5 MCG 120 PUFF INHALER INH SCH (06:54)
[2022-05-10 08:13] LABS: Hemoglobin A1c 5.5 % (4.0-6.0)
[2022-05-10] MEDS ORDERED: Polyethylene Glycol 3350 17 GM Packet PO PRN (08:50)
[2022-05-10] MEDS: Carvedilol 6.25 MG TAB PO SCH ×2 (09:57→20:58)
[2022-05-10] MEDS: traMADol HCl 50 MG TAB PO PRN ×2 (10:05→20:58)
[2022-05-10] MEDS: Amlodipine 5 MG TAB PO SCH (14:13)
[2022-05-10] MEDS: Atorvastatin Calcium 40 MG TAB PO SCH (14:13)
[2022-05-10] MEDS: Lisinopril 20 MG TAB PO SCH (14:21)
[2022-05-10] MEDS ORDERED: Vancomycin 1.5 GRAM/300 ML BAG 1.5 GM in Premix Bag 1 BAG IVPB SCH (15:00)
[2022-05-10] MEDS: Aspirin 81 mg Enteric Coated Tablet PO SCH (19:42)
[2022-05-10] MEDS: Enoxaparin Sodium 40 MG/0.4 ML SYRINGE SC SCH (19:42)
[2022-05-10] MEDS: Gabapentin 300 MG CAP PO SCH ×2 (19:43→20:58)
[2022-05-11] MEDS: Cefepime 2 GM in Sodium Chloride 0.9% 100 ML IVPB SCH ×2 (02:29→14:39)
[2022-05-11 05:16] LABS: #Eosinphils 0.4 thou/uL (0.0-0.7); #Lymphocytes 1.2 thou/uL (1.20-3.40); #Monocytes 0.7 thou/uL (0.11-0.59); #Neutrophils 6.1 thou/uL (1.40-6.50); %Basophils 0.2 % (0.0-1.0); %Eosinophils 4.4 % (0.0-10.0); %Lymphocytes 14.3 % (21.0-51.0); %Monocytes 8.2 % (0.0-10.0); %Neutrophils 72.9 % (42.0-75.0); Hemoglobin 13.1 g/dL (14.0-18.0); Mean Corpuscular HGB CONC 33.7 g/dL (32.0-36.0); Mean Corpuscular Hemoglobin 29.5 pg (27.0-31.0); Mean Corpuscular Volume 87.4 fL (78.0-98.0); Mean Platelet Volume 8.9 fL (7.4-10.4); Platelet Count 286 thou/uL (130-400); RBC Distribution Width 12.4 % (11.5-14.5); Red Blood Cell (RBC) Count 4.44 mill/uL (4.70-6.10); White Blood Cell (WBC) Count 8.3 thou/uL (4.8-10.8)
[2022-05-11 05:34] LABS: Anion Gap 14 mmol/L (10-20); BUN (Urea Nitrogen) 17 mg/dL (8.4-25.7); Calc. Creatinine Clearance 93 mL/min (70-130); Calcium 9.3 mg/dL (7.8-10.44); Carbon Dioxide 22 mmol/L (23-31); Chloride 103 mmol/L (98-107); Estimated GFR 66; Glucose 118 mg/dL (80-115); Potassium 4.3 mmol/L (3.5-5.1); Sodium 135 mmol/L (136-145)
[2022-05-11] MEDS: traMADol HCl 50 MG TAB PO PRN ×2 (06:38→22:00)
[2022-05-11] MEDS: Mometasone 200 MCG/Formoterol 5 MCG 120 PUFF INHALER INH SCH (07:15)
[2022-05-11] MEDS: Atorvastatin Calcium 40 MG TAB PO SCH (08:59)
[2022-05-11] MEDS: Amlodipine 5 MG TAB PO SCH (08:59)
[2022-05-11] MEDS: Lisinopril 20 MG TAB PO SCH (09:00)
[2022-05-11] MEDS: Gabapentin 300 MG CAP PO SCH ×2 (09:01→20:29)
[2022-05-11] MEDS: Aspirin 81 mg Enteric Coated Tablet PO SCH (09:02)
[2022-05-11] MEDS: Enoxaparin Sodium 40 MG/0.4 ML SYRINGE SC SCH (09:03)
[2022-05-11] MEDS: Morphine 2 MG/ML VIAL SLOW IVP PRN ×3 (09:08→20:29)
[2022-05-11 09:16] LABS: Troponin I 0.027 ng/mL (< 0.028)
[2022-05-11] MEDS ORDERED: Famotidine 20 MG TAB PO SCH (10:30)
[2022-05-11 14:31] LABS: Vancomycin, Trough 6.9 ug/mL
[2022-05-11] MEDS: VANCOMYCIN 2 GRAM/500 ML BAG 2 GM in Premix Bag 1 BAG IVPB SCH (16:17)
[2022-05-11] MEDS: Carvedilol 6.25 MG TAB PO SCH ×2 (16:28→20:28)
[2022-05-12] MEDS: Cefepime 2 GM in Sodium Chloride 0.9% 100 ML IVPB SCH ×2 (02:19→14:16)
[2022-05-12 06:23] LABS: #Eosinphils 0.4 thou/uL (0.0-0.7); #Lymphocytes 1.1 thou/uL (1.20-3.40); #Monocytes 0.6 thou/uL (0.11-0.59); #Neutrophils 4.7 thou/uL (1.40-6.50); %Basophils 0.4 % (0.0-1.0); %Eosinophils 5.5 % (0.0-10.0); %Lymphocytes 16.5 % (21.0-51.0); %Monocytes 8.7 % (0.0-10.0); Hemoglobin 12.8 g/dL (14.0-18.0); Mean Corpuscular HGB CONC 32.9 g/dL (32.0-36.0); Mean Corpuscular Hemoglobin 28.3 pg (27.0-31.0); Mean Corpuscular Volume 85.8 fL (78.0-98.0); Mean Platelet Volume 8.8 fL (7.4-10.4); Platelet Count 306 thou/uL (130-400); RBC Distribution Width 12.4 % (11.5-14.5); Red Blood Cell (RBC) Count 4.52 mill/uL (4.70-6.10); White Blood Cell (WBC) Count 6.8 thou/uL (4.8-10.8)
[2022-05-12] MEDS: Mometasone 200 MCG/Formoterol 5 MCG 120 PUFF INHALER INH SCH (06:40)
[2022-05-12 06:42] LABS: Anion Gap 13 mmol/L (10-20); BUN (Urea Nitrogen) 16 mg/dL (8.4-25.7); Calc. Creatinine Clearance 88 mL/min (70-130); Calcium 9.2 mg/dL (7.8-10.44); Carbon Dioxide 25 mmol/L (23-31); Chloride 103 mmol/L (98-107); Estimated GFR 62; Glucose 110 mg/dL (80-115); Potassium 4.4 mmol/L (3.5-5.1); Sodium 137 mmol/L (136-145)
[2022-05-12] MEDS: Gabapentin 300 MG CAP PO SCH ×2 (08:57→21:12)
[2022-05-12] MEDS: Aspirin 81 mg Enteric Coated Tablet PO SCH (08:58)
[2022-05-12] MEDS: Famotidine 20 MG TAB PO SCH (08:59)
[2022-05-12] MEDS: Lisinopril 20 MG TAB PO SCH (08:59)
[2022-05-12] MEDS: Amlodipine 5 MG TAB PO SCH (09:00)
[2022-05-12] MEDS: Atorvastatin Calcium 40 MG TAB PO SCH (09:01)
[2022-05-12] MEDS: Enoxaparin Sodium 40 MG/0.4 ML SYRINGE SC SCH (09:01)
[2022-05-12] MEDS: Carvedilol 6.25 MG TAB PO SCH ×2 (12:54→21:13)
[2022-05-12] MEDS: traMADol HCl 50 MG TAB PO PRN (15:05)
[2022-05-12] MEDS ORDERED: Fluconazole 100 MG TAB PO SCH (16:00)
[2022-05-12] MEDS ORDERED: metroNIDAZOLE 500 MG TAB PO SCH (16:00)
[2022-05-12] MEDS: VANCOMYCIN 2 GRAM/500 ML BAG 2 GM in Premix Bag 1 BAG IVPB SCH (17:34)
[2022-05-12] MEDS: metroNIDAZOLE 500 MG TAB PO SCH (21:12)
[2022-05-13 06:48] LABS: #Eosinphils 0.4 thou/uL (0.0-0.7); #Lymphocytes 1.2 thou/uL (1.20-3.40); #Monocytes 0.5 thou/uL (0.11-0.59); #Neutrophils 4.3 thou/uL (1.40-6.50); %Basophils 0.4 % (0.0-1.0); %Eosinophils 5.9 % (0.0-10.0); %Lymphocytes 18.5 % (21.0-51.0); %Monocytes 8.1 % (0.0-10.0); %Neutrophils 67.2 % (42.0-75.0); Hemoglobin 13.2 g/dL (14.0-18.0); Mean Corpuscular HGB CONC 31.5 g/dL (32.0-36.0); Mean Corpuscular Hemoglobin 27.1 pg (27.0-31.0); Mean Platelet Volume 8.5 fL (7.4-10.4); Platelet Count 376 thou/uL (130-400); RBC Distribution Width 12.3 % (11.5-14.5); Red Blood Cell (RBC) Count 4.89 mill/uL (4.70-6.10); White Blood Cell (WBC) Count 6.4 thou/uL (4.8-10.8)
[2022-05-13 07:02] LABS: Anion Gap 12 mmol/L (10-20); BUN (Urea Nitrogen) 14 mg/dL (8.4-25.7); Calc. Creatinine Clearance 97 mL/min (70-130); Calcium 9.7 mg/dL (7.8-10.44); Carbon Dioxide 27 mmol/L (23-31); Chloride 102 mmol/L (98-107); Estimated GFR 69; Glucose 115 mg/dL (80-115); Potassium 4.1 mmol/L (3.5-5.1); Sodium 137 mmol/L (136-145)
[2022-05-13] MEDS: Mometasone 200 MCG/Formoterol 5 MCG 120 PUFF INHALER INH SCH (07:05)
[2022-05-13] MEDS ORDERED: Fluconazole 100 MG TAB PO SCH (09:00)
[2022-05-13] MEDS ORDERED: Empagliflozin 10 MG TAB PO SCH (09:00)
[2022-05-13] MEDS: Carvedilol 6.25 MG TAB PO SCH (09:45)
[2022-05-13] MEDS: Famotidine 20 MG TAB PO SCH (09:45)
[2022-05-13] MEDS: metroNIDAZOLE 500 MG TAB PO SCH (09:46)
[2022-05-13] MEDS: Amlodipine 5 MG TAB PO SCH (09:46)
[2022-05-13] MEDS: Lisinopril 20 MG TAB PO SCH (09:46)
[2022-05-13] MEDS: Gabapentin 300 MG CAP PO SCH (09:46)
[2022-05-13] MEDS: Atorvastatin Calcium 40 MG TAB PO SCH (09:47)
[2022-05-13] MEDS: Aspirin 81 mg Enteric Coated Tablet PO SCH (09:48)
[2022-05-13] MEDS: Enoxaparin Sodium 40 MG/0.4 ML SYRINGE SC SCH (09:50)
[2022-05-13 12:07] VITALS: BP 171/83; TEMP 97.6
[2022-05-13] MEDS ORDERED: metFORMIN 500 MG TAB PO SCH (17:00)
== END 2022-05-13 13:00 | disposition left against medical advice (07) | DRG 638 ==
LOC: ERS 10:31 → SURG A 13:11
PROVIDERS: ADMIT Student in an Organized Health Care Education/Training Program; ATTEND Family Medicine
DX: E11.69 Type 2 diabetes mellitus with other specified complication (principal); M86.8X7 Other osteomyelitis, ankle and foot; Z20.822 Contact with and (suspected) exposure to COVID-19; L03.116 Cellulitis of left lower limb; I50.22 Chronic systolic (congestive) heart failure; I13.0 Hypertensive heart and chronic kidney disease with heart failure and stage 1 through stage 4 chronic kidney disease, or unspecified chronic kidney disease; M86.672 Other chronic osteomyelitis, left ankle and foot; B37.89 Other sites of candidiasis; E11.621 Type 2 diabetes mellitus with foot ulcer; N17.9 Acute kidney failure, unspecified; N18.4 Chronic kidney disease, stage 4 (severe); E11.22 Type 2 diabetes mellitus with diabetic chronic kidney disease; E11.51 Type 2 diabetes mellitus with diabetic peripheral angiopathy without gangrene; E11.40 Type 2 diabetes mellitus with diabetic neuropathy, unspecified; L97.529 Non-pressure chronic ulcer of other part of left foot with unspecified severity; J44.9 Chronic obstructive pulmonary disease, unspecified; F41.9 Anxiety disorder, unspecified; K21.9 Gastro-esophageal reflux disease without esophagitis; L28.1 Prurigo nodularis; L28.0 Lichen simplex chronicus; F15.10 Other stimulant abuse, uncomplicated; F17.210 Nicotine dependence, cigarettes, uncomplicated; Z60.2 Problems related to living alone; B95.62 Methicillin resistant Staphylococcus aureus infection as the cause of diseases classified elsewhere; Z53.29 Procedure and treatment not carried out because of patient's decision for other reasons; R07.89 Other chest pain; Z79.899 Other long term (current) drug therapy; Z79.82 Long term (current) use of aspirin; Z79.84 Long term (current) use of oral hypoglycemic drugs; Z79.51 Long term (current) use of inhaled steroids; I25.2 Old myocardial infarction; Z90.89 Acquired absence of other organs; Z95.1 Presence of aortocoronary bypass graft; Z98.890 Other specified postprocedural states; Z82.49 Family history of ischemic heart disease and other diseases of the circulatory system; Z89.422 Acquired absence of other left toe(s)
CPT/HCPCS: 36415; 36416; 80048; 80053; 80202; 83036; 83605; 84484; 85025; 85652; 86140; 87040; 93005; 93010; 94640; 97139; J0692; J1650; J1815; J2270; J3370; J3490; J7120; J7620; U0003; U0005

== ENCOUNTER 2022-05-25 05:18 | Inpatient (IN) | payer OTHER, MEDICAID ==
[2022-05-25] MEDS ORDERED: Ondansetron PF 4 MG/2 ML Vial ONE (06:00)
[2022-05-25] MEDS ORDERED: metroNIDAZOLE 500 MG/100 ML BAG ONE (06:00)
[2022-05-25] MEDS ORDERED: Morphine 4 MG/ML VIAL ONE (06:00)
[2022-05-25 06:24] LABS: #Eosinphils 0.3 thou/uL (0.0-0.7); #Lymphocytes 1.2 thou/uL (1.20-3.40); #Monocytes 0.7 thou/uL (0.11-0.59); #Neutrophils 9.6 thou/uL (1.40-6.50); %Basophils 0.3 % (0.0-1.0); %Eosinophils 2.2 % (0.0-10.0); %Lymphocytes 10.4 % (21.0-51.0); %Monocytes 6.2 % (0.0-10.0); %Neutrophils 80.9 % (42.0-75.0); Hemoglobin 13.3 g/dL (14.0-18.0); Mean Corpuscular HGB CONC 33.2 g/dL (32.0-36.0); Mean Corpuscular Hemoglobin 28.6 pg (27.0-31.0); Mean Corpuscular Volume 86.2 fL (78.0-98.0); Mean Platelet Volume 8.2 fL (7.4-10.4); Platelet Count 356 thou/uL (130-400); RBC Distribution Width 12.6 % (11.5-14.5); Red Blood Cell (RBC) Count 4.66 mill/uL (4.70-6.10); White Blood Cell (WBC) Count 11.9 thou/uL (4.8-10.8)
[2022-05-25 06:47] LABS: ALT (SGPT) 11 U/L (8-55); AST (SGOT) 10 U/L (5-34); Albumin 4.1 g/dL (3.4-4.8); Alkaline Phosphatase 109 U/L (40-110); Anion Gap 17 mmol/L (10-20); BUN (Urea Nitrogen) 17 mg/dL (8.4-25.7); Bilirubin, Total 0.4 mg/dL (0.2-1.2); Calc. Creatinine Clearance 0 mL/min (70-130); Calcium 9.6 mg/dL (7.8-10.44); Carbon Dioxide 26 mmol/L (23-31); Chloride 100 mmol/L (98-107); Estimated GFR 43; Glucose 216 mg/dL (80-115); Potassium 4.6 mmol/L (3.5-5.1); Protein, Total 7.1 g/dL (5.8-8.1); Sodium 138 mmol/L (136-145)
[2022-05-25] MEDS ORDERED: VANCOMYCIN 1.75 GM/500 ML BAG 1.75 GM in Premix Bag 1 BAG IVPB SCH (09:00)
[2022-05-25 09:07] VITALS: BMI 30.8
[2022-05-25] MEDS ORDERED: Acetaminophen 325 MG TAB PO PRN (09:13)
[2022-05-25] MEDS ORDERED: Ondansetron ODT 4 MG TAB PO PRN (09:13)
[2022-05-25] MEDS ORDERED: Ondansetron PF 4 MG/2 ML Vial IVP PRN (09:13)
[2022-05-25] MEDS ORDERED: Sodium Chloride 0.9% 1,000 ML IV SCH (09:15)
[2022-05-25] MEDS ORDERED: Dextrose 50% Abboject 50 ML SYRINGE SLOW IVP PRN (12:52)
[2022-05-25] MEDS ORDERED: HumaLOG 300 UNITS/3 ML VIAL SC PRN ×2 (12:52)
[2022-05-25] MEDS ORDERED: Dextrose 5% in Water 1,000 ML IV PRN (12:52)
[2022-05-25] MEDS: traMADol HCl 50 MG TAB PO PRN (13:20)
[2022-05-25] MEDS: metFORMIN 500 MG TAB PO SCH (17:21)
[2022-05-25] MEDS: Carvedilol 6.25 MG TAB PO SCH (17:22)
[2022-05-25] MEDS: Mometasone 200 MCG/Formoterol 5 MCG 120 PUFF INHALER INH SCH (18:46)
[2022-05-25] MEDS: Gabapentin 300 MG CAP PO SCH (20:07)
[2022-05-25] MEDS: hydrOXYzine 25 MG TAB PO SCH (20:07)
[2022-05-25] MEDS: Atorvastatin Calcium 40 MG TAB PO SCH (20:07)
[2022-05-25] MEDS ORDERED: Vancomycin HCl 1.75 GM in Sodium Chloride 0.9% 250 ML 300 ML IVPB SCH (22:00)
[2022-05-26 06:38] LABS: #Eosinphils 0.4 thou/uL (0.0-0.7); #Lymphocytes 1.3 thou/uL (1.20-3.40); #Monocytes 0.6 thou/uL (0.11-0.59); #Neutrophils 4.6 thou/uL (1.40-6.50); %Basophils 0.7 % (0.0-1.0); %Eosinophils 5.8 % (0.0-10.0); %Lymphocytes 18.6 % (21.0-51.0); %Monocytes 8.5 % (0.0-10.0); %Neutrophils 66.4 % (42.0-75.0); Hemoglobin 12.7 g/dL (14.0-18.0); Mean Corpuscular HGB CONC 33.1 g/dL (32.0-36.0); Mean Corpuscular Hemoglobin 28.6 pg (27.0-31.0); Mean Corpuscular Volume 86.5 fL (78.0-98.0); Mean Platelet Volume 8.3 fL (7.4-10.4); Platelet Count 295 thou/uL (130-400); RBC Distribution Width 12.4 % (11.5-14.5); Red Blood Cell (RBC) Count 4.45 mill/uL (4.70-6.10); White Blood Cell (WBC) Count 6.9 thou/uL (4.8-10.8)
[2022-05-26 07:04] LABS: Anion Gap 13 mmol/L (10-20); BUN (Urea Nitrogen) 16 mg/dL (8.4-25.7); Calc. Creatinine Clearance 80 mL/min (70-130); Calcium 9.3 mg/dL (7.8-10.44); Carbon Dioxide 28 mmol/L (23-31); Chloride 100 mmol/L (98-107); Estimated GFR 58; Glucose 115 mg/dL (80-115); Potassium 4.8 mmol/L (3.5-5.1); Sodium 136 mmol/L (136-145)
[2022-05-26] MEDS: Mometasone 200 MCG/Formoterol 5 MCG 120 PUFF INHALER INH SCH ×2 (07:17→19:06)
[2022-05-26] MEDS: Amlodipine 5 MG TAB PO SCH (09:00)
[2022-05-26] MEDS: Lisinopril 20 MG TAB PO SCH (09:00)
[2022-05-26] MEDS ORDERED: Fluconazole 40 mg/ml Oral Suspension PO SCH (09:00)
[2022-05-26] MEDS: hydrOXYzine 25 MG TAB PO SCH ×2 (09:00→21:05)
[2022-05-26] MEDS: metFORMIN 500 MG TAB PO SCH ×2 (09:00→16:17)
[2022-05-26] MEDS: Fluconazole 100 MG TAB PO SCH (09:01)
[2022-05-26] MEDS: Aspirin 81 mg Enteric Coated Tablet PO SCH (09:01)
[2022-05-26] MEDS: Carvedilol 6.25 MG TAB PO SCH (09:01)
[2022-05-26] MEDS: Gabapentin 300 MG CAP PO SCH ×2 (09:02→21:05)
[2022-05-26] MEDS: Enoxaparin Sodium 40 MG/0.4 ML SYRINGE SC SCH (09:02)
[2022-05-26] MEDS: VANCOMYCIN 2 GRAM/500 ML BAG 2 GM in Premix Bag 1 BAG IVPB SCH (10:42)
[2022-05-26] MEDS: Carvedilol 3.125 MG TAB PO SCH (16:17)
[2022-05-26] MEDS: Atorvastatin Calcium 40 MG TAB PO SCH (21:06)
[2022-05-27] MEDS: Mometasone 200 MCG/Formoterol 5 MCG 120 PUFF INHALER INH SCH ×2 (07:14→18:43)
[2022-05-27] MEDS: VANCOMYCIN 2 GRAM/500 ML BAG 2 GM in Premix Bag 1 BAG IVPB SCH (09:20)
[2022-05-27] MEDS: Lisinopril 20 MG TAB PO SCH (09:21)
[2022-05-27] MEDS: Fluconazole 100 MG TAB PO SCH (09:21)
[2022-05-27] MEDS: Amlodipine 5 MG TAB PO SCH (09:22)
[2022-05-27] MEDS: metFORMIN 500 MG TAB PO SCH ×2 (09:22→16:26)
[2022-05-27] MEDS: Gabapentin 300 MG CAP PO SCH ×2 (09:22→20:21)
[2022-05-27] MEDS: hydrOXYzine 25 MG TAB PO SCH ×2 (09:23→20:21)
[2022-05-27] MEDS: Aspirin 81 mg Enteric Coated Tablet PO SCH (09:23)
[2022-05-27] MEDS: Enoxaparin Sodium 40 MG/0.4 ML SYRINGE SC SCH (09:23)
[2022-05-27] MEDS: Carvedilol 3.125 MG TAB PO SCH ×2 (09:27→16:27)
[2022-05-27] MEDS: VANCOMYCIN 1.25 GM/250 ML BAG 1.25 GM in Premix Bag 1 BAG IVPB SCH ×2 (12:24→22:24)
[2022-05-27] MEDS: Atorvastatin Calcium 40 MG TAB PO SCH (20:21)
[2022-05-27] MEDS: traMADol HCl 50 MG TAB PO PRN (20:21)
[2022-05-28] MEDS: traMADol HCl 50 MG TAB PO PRN ×2 (05:41→20:19)
[2022-05-28] MEDS: Mometasone 200 MCG/Formoterol 5 MCG 120 PUFF INHALER INH SCH ×2 (06:48→19:01)
[2022-05-28] MEDS: Carvedilol 3.125 MG TAB PO SCH ×2 (08:23→17:25)
[2022-05-28] MEDS: metFORMIN 500 MG TAB PO SCH ×2 (08:29→17:24)
[2022-05-28] MEDS: Fluconazole 100 MG TAB PO SCH (08:29)
[2022-05-28] MEDS: hydrOXYzine 25 MG TAB PO SCH ×2 (08:30→20:20)
[2022-05-28] MEDS: Gabapentin 300 MG CAP PO SCH ×2 (08:30→20:19)
[2022-05-28] MEDS: Aspirin 81 mg Enteric Coated Tablet PO SCH (08:30)
[2022-05-28] MEDS: Enoxaparin Sodium 40 MG/0.4 ML SYRINGE SC SCH (08:30)
[2022-05-28] MEDS: Lisinopril 20 MG TAB PO SCH (08:30)
[2022-05-28] MEDS: Amlodipine 10 MG TAB PO SCH (08:30)
[2022-05-28 09:15] LABS: #Eosinphils 0.3 thou/uL (0.0-0.7); #Lymphocytes 1.3 thou/uL (1.20-3.40); #Monocytes 0.6 thou/uL (0.11-0.59); #Neutrophils 4.5 thou/uL (1.40-6.50); %Basophils 0.6 % (0.0-1.0); %Eosinophils 4.9 % (0.0-10.0); %Lymphocytes 18.7 % (21.0-51.0); %Monocytes 8.8 % (0.0-10.0); Hemoglobin 13.5 g/dL (14.0-18.0); Mean Corpuscular HGB CONC 32.9 g/dL (32.0-36.0); Mean Corpuscular Hemoglobin 28.3 pg (27.0-31.0); Mean Platelet Volume 8.1 fL (7.4-10.4); Platelet Count 323 thou/uL (130-400); RBC Distribution Width 12.4 % (11.5-14.5); Red Blood Cell (RBC) Count 4.79 mill/uL (4.70-6.10); White Blood Cell (WBC) Count 6.7 thou/uL (4.8-10.8)
[2022-05-28 09:37] LABS: Anion Gap 13 mmol/L (10-20); BUN (Urea Nitrogen) 19 mg/dL (8.4-25.7); Calc. Creatinine Clearance 79 mL/min (70-130); Calcium 9.6 mg/dL (7.8-10.44); Carbon Dioxide 27 mmol/L (23-31); Chloride 100 mmol/L (98-107); Estimated GFR 57; Glucose 159 mg/dL (80-115); Potassium 4.4 mmol/L (3.5-5.1); Sodium 136 mmol/L (136-145)
[2022-05-28] MEDS: VANCOMYCIN 1.25 GM/250 ML BAG 1.25 GM in Premix Bag 1 BAG IVPB SCH ×2 (10:45→23:42)
[2022-05-28] MEDS: Atorvastatin Calcium 40 MG TAB PO SCH (20:19)
[2022-05-28 21:51] LABS: Vancomycin, Trough 20.2 ug/mL
[2022-05-28] MEDS ORDERED: Acetaminophen 500 MG TAB PO SCH (23:45)
[2022-05-29 07:05] LABS: #Eosinphils 0.4 thou/uL (0.0-0.7); #Lymphocytes 1.6 thou/uL (1.20-3.40); #Monocytes 0.7 thou/uL (0.11-0.59); #Neutrophils 3.6 thou/uL (1.40-6.50); %Basophils 0.5 % (0.0-1.0); %Eosinophils 5.9 % (0.0-10.0); %Lymphocytes 25.7 % (21.0-51.0); %Monocytes 11.7 % (0.0-10.0); %Neutrophils 56.1 % (42.0-75.0); Hemoglobin 12.4 g/dL (14.0-18.0); Mean Corpuscular Hemoglobin 27.4 pg (27.0-31.0); Mean Corpuscular Volume 85.5 fL (78.0-98.0); Mean Platelet Volume 8.3 fL (7.4-10.4); Platelet Count 305 thou/uL (130-400); RBC Distribution Width 12.5 % (11.5-14.5); Red Blood Cell (RBC) Count 4.53 mill/uL (4.70-6.10); White Blood Cell (WBC) Count 6.3 thou/uL (4.8-10.8)
[2022-05-29] MEDS: Mometasone 200 MCG/Formoterol 5 MCG 120 PUFF INHALER INH SCH ×2 (07:19→19:19)
[2022-05-29 07:31] LABS: Anion Gap 13 mmol/L (10-20); BUN (Urea Nitrogen) 19 mg/dL (8.4-25.7); Calc. Creatinine Clearance 75 mL/min (70-130); Carbon Dioxide 26 mmol/L (23-31); Chloride 102 mmol/L (98-107); Estimated GFR 53; Glucose 101 mg/dL (80-115); Potassium 4.2 mmol/L (3.5-5.1); Sodium 137 mmol/L (136-145)
[2022-05-29] MEDS: Amlodipine 10 MG TAB PO SCH (08:30)
[2022-05-29] MEDS: hydrOXYzine 25 MG TAB PO SCH ×2 (08:30→20:49)
[2022-05-29] MEDS: Lisinopril 20 MG TAB PO SCH (08:30)
[2022-05-29] MEDS: Fluconazole 100 MG TAB PO SCH (08:30)
[2022-05-29] MEDS: metFORMIN 500 MG TAB PO SCH ×2 (08:30→16:54)
[2022-05-29] MEDS: Carvedilol 3.125 MG TAB PO SCH ×2 (08:31→16:54)
[2022-05-29] MEDS: Aspirin 81 mg Enteric Coated Tablet PO SCH (08:31)
[2022-05-29] MEDS: Enoxaparin Sodium 40 MG/0.4 ML SYRINGE SC SCH (08:31)
[2022-05-29] MEDS: Sodium Chloride 0.9% 1,000 ML IV SCH ×2 (08:31→22:48)
[2022-05-29] MEDS: Gabapentin 300 MG CAP PO SCH ×2 (08:31→20:49)
[2022-05-29] MEDS: VANCOMYCIN 1.25 GM/250 ML BAG 1.25 GM in Premix Bag 1 BAG IVPB SCH ×2 (10:57→23:56)
[2022-05-29] MEDS ORDERED: Lidocaine 1% PF 5 ML VIAL ONE (19:12)
[2022-05-29] MEDS ORDERED: PROPOFOL 200 MG/20 ML VIAL ONE (19:12)
[2022-05-29] MEDS ORDERED: Ondansetron HCl/PF 4 MG/2 ML Vial IVP PRN (19:35)
[2022-05-29] MEDS ORDERED: Promethazine HCl 25 MG/ML VIAL IVPB PRN (19:35)
[2022-05-29] MEDS ORDERED: Promethazine HCl 25 MG/ML VIAL IM PRN (19:35)
[2022-05-29] MEDS ORDERED: fentaNYL Citrate/PF 100 MCG/2 ML SYRINGE ONE (19:52)
[2022-05-29] MEDS: Atorvastatin Calcium 40 MG TAB PO SCH (20:49)
[2022-05-29] MEDS: traMADol HCl 50 MG TAB PO PRN (20:50)
[2022-05-29 22:05] LABS: Vancomycin, Random 23.6 ug/mL (See Comment)
[2022-05-30] MEDS: Vancomycin 1 GM in Premix Bag 1 BAG IVPB SCH ×3 (01:47→23:06)
[2022-05-30] MEDS: traMADol HCl 50 MG TAB PO PRN ×3 (05:45→21:06)
[2022-05-30 07:13] LABS: #Eosinphils 0.4 thou/uL (0.0-0.7); #Lymphocytes 1.5 thou/uL (1.20-3.40); #Monocytes 0.7 thou/uL (0.11-0.59); %Basophils 0.5 % (0.0-1.0); %Eosinophils 5.1 % (0.0-10.0); %Monocytes 8.3 % (0.0-10.0); %Neutrophils 69.1 % (42.0-75.0); Hemoglobin 13.4 g/dL (14.0-18.0); Mean Corpuscular HGB CONC 33.9 g/dL (32.0-36.0); Mean Corpuscular Hemoglobin 29.1 pg (27.0-31.0); Mean Corpuscular Volume 85.8 fL (78.0-98.0); Mean Platelet Volume 8.2 fL (7.4-10.4); Platelet Count 300 thou/uL (130-400); RBC Distribution Width 12.4 % (11.5-14.5); White Blood Cell (WBC) Count 8.7 thou/uL (4.8-10.8)
[2022-05-30] MEDS: Mometasone 200 MCG/Formoterol 5 MCG 120 PUFF INHALER INH SCH ×2 (07:21→19:02)
[2022-05-30 07:34] LABS: Anion Gap 13 mmol/L (10-20); BUN (Urea Nitrogen) 16 mg/dL (8.4-25.7); Calc. Creatinine Clearance 85 mL/min (70-130); Calcium 9.4 mg/dL (7.8-10.44); Carbon Dioxide 27 mmol/L (23-31); Chloride 102 mmol/L (98-107); Estimated GFR 63; Glucose 107 mg/dL (80-115); Potassium 4.4 mmol/L (3.5-5.1); Sodium 138 mmol/L (136-145)
[2022-05-30] MEDS: metFORMIN 500 MG TAB PO SCH ×2 (10:33→17:54)
[2022-05-30] MEDS: Enoxaparin Sodium 40 MG/0.4 ML SYRINGE SC SCH (10:33)
[2022-05-30] MEDS: Aspirin 81 mg Enteric Coated Tablet PO SCH (10:33)
[2022-05-30] MEDS: hydrOXYzine 25 MG TAB PO SCH ×2 (10:34→23:07)
[2022-05-30] MEDS: Gabapentin 300 MG CAP PO SCH ×2 (10:34→21:09)
[2022-05-30] MEDS: Fluconazole 100 MG TAB PO SCH (10:34)
[2022-05-30] MEDS: Lisinopril 20 MG TAB PO SCH (10:34)
[2022-05-30] MEDS: Carvedilol 3.125 MG TAB PO SCH ×2 (10:36→17:54)
[2022-05-30] MEDS: Amlodipine 10 MG TAB PO SCH (10:37)
[2022-05-30] MEDS: Sodium Chloride 0.9% 1,000 ML IV SCH (13:10)
[2022-05-30] MEDS: Atorvastatin Calcium 40 MG TAB PO SCH (21:09)
[2022-05-31] MEDS ORDERED: Simethicone Chewable 80 MG TAB PO PRN (05:46)
[2022-05-31] MEDS ORDERED: Polyethylene Glycol 3350 17 GM Packet PO PRN (05:46)
[2022-05-31] MEDS: Mometasone 200 MCG/Formoterol 5 MCG 120 PUFF INHALER INH SCH ×2 (06:44→18:54)
[2022-05-31] MEDS ORDERED: Lisinopril 10 MG TAB PO SCH (08:15)
[2022-05-31] MEDS ORDERED: Polyethylene Glycol 3350 17 GM Packet PO SCH (08:18)
[2022-05-31] MEDS: metFORMIN 500 MG TAB PO SCH ×2 (08:27→17:06)
[2022-05-31] MEDS: Aspirin 81 mg Enteric Coated Tablet PO SCH (08:27)
[2022-05-31] MEDS: Amlodipine 10 MG TAB PO SCH (08:27)
[2022-05-31] MEDS: hydrOXYzine 25 MG TAB PO SCH ×2 (08:27→22:30)
[2022-05-31] MEDS: Fluconazole 100 MG TAB PO SCH (08:27)
[2022-05-31] MEDS: Gabapentin 300 MG CAP PO SCH ×2 (08:27→22:30)
[2022-05-31] MEDS: traMADol HCl 50 MG TAB PO PRN (08:28)
[2022-05-31] MEDS: Enoxaparin Sodium 40 MG/0.4 ML SYRINGE SC SCH (08:29)
[2022-05-31] MEDS: Carvedilol 3.125 MG TAB PO SCH ×2 (09:06→17:11)
[2022-05-31 11:23] LABS: Vancomycin, Trough 21.6 ug/mL
[2022-05-31] MEDS: Vancomycin 1 GM in Premix Bag 1 BAG IVPB SCH (11:37)
[2022-05-31] MEDS: Vancomycin HCl 750 MG in Sodium Chloride 0.9% 250 ML 250 ML IVPB SCH (12:01)
[2022-05-31] MEDS: Atorvastatin Calcium 40 MG TAB PO SCH (22:30)
[2022-06-01] MEDS: Vancomycin HCl 750 MG in Sodium Chloride 0.9% 250 ML 250 ML IVPB SCH ×2 (00:53→12:31)
[2022-06-01] MEDS: Mometasone 200 MCG/Formoterol 5 MCG 120 PUFF INHALER INH SCH ×2 (06:38→19:02)
[2022-06-01] MEDS: Enoxaparin Sodium 40 MG/0.4 ML SYRINGE SC SCH (08:56)
[2022-06-01] MEDS: Amlodipine 10 MG TAB PO SCH (08:57)
[2022-06-01] MEDS: Gabapentin 300 MG CAP PO SCH ×2 (08:57→20:22)
[2022-06-01] MEDS: Fluconazole 100 MG TAB PO SCH (08:57)
[2022-06-01] MEDS: metFORMIN 500 MG TAB PO SCH ×2 (08:57→17:23)
[2022-06-01] MEDS: Aspirin 81 mg Enteric Coated Tablet PO SCH (08:58)
[2022-06-01] MEDS: hydrOXYzine 25 MG TAB PO SCH ×2 (08:58→20:22)
[2022-06-01] MEDS: Lisinopril 20 MG TAB PO SCH (09:03)
[2022-06-01 19:53] VITALS: TEMP 98.3
[2022-06-01] MEDS: Atorvastatin Calcium 40 MG TAB PO SCH (20:22)
[2022-06-01 23:41] LABS: Vancomycin, Trough 19.7 ug/mL
[2022-06-02] MEDS: traMADol HCl 50 MG TAB PO PRN ×2 (00:25→08:34)
[2022-06-02] MEDS: Vancomycin HCl 750 MG in Sodium Chloride 0.9% 250 ML 250 ML IVPB SCH ×2 (00:26→12:01)
[2022-06-02] MEDS: Mometasone 200 MCG/Formoterol 5 MCG 120 PUFF INHALER INH SCH (06:36)
[2022-06-02] MEDS: Lisinopril 20 MG TAB PO SCH (08:25)
[2022-06-02] MEDS: Amlodipine 10 MG TAB PO SCH (08:25)
[2022-06-02] MEDS: Fluconazole 100 MG TAB PO SCH (08:25)
[2022-06-02] MEDS: Gabapentin 300 MG CAP PO SCH (08:26)
[2022-06-02] MEDS: Aspirin 81 mg Enteric Coated Tablet PO SCH (08:26)
[2022-06-02] MEDS: metFORMIN 500 MG TAB PO SCH (08:26)
[2022-06-02] MEDS: hydrOXYzine 25 MG TAB PO SCH (08:26)
[2022-06-02] MEDS: Enoxaparin Sodium 40 MG/0.4 ML SYRINGE SC SCH (08:27)
[2022-06-02 08:51] VITALS: BP 145/80
== END 2022-06-02 13:43 | DRG 617 ==
LOC: ERS 05:18 → T4-B 07:30
PROVIDERS: ADMIT Family Medicine; ATTEND Family Medicine
PROC: 02HV33Z Insertion of Infusion Device into Superior Vena Cava, Percutaneous Approach (ICD-10-PCS; 2022-05-27)
PROC: B5181ZA Fluoroscopy of Superior Vena Cava using Low Osmolar Contrast, Guidance (ICD-10-PCS; 2022-05-27)
PROC: B548ZZA Ultrasonography of Superior Vena Cava, Guidance (ICD-10-PCS; 2022-05-27)
PROC: 0Y6N0ZC Detachment at Left Foot, Partial 3rd Ray, Open Approach (ICD-10-PCS; principal; 2022-05-29)
PROC: 0Y6N0ZD Detachment at Left Foot, Partial 4th Ray, Open Approach (ICD-10-PCS; 2022-05-29)
DX: E11.69 Type 2 diabetes mellitus with other specified complication (principal); I50.22 Chronic systolic (congestive) heart failure; M86.8X7 Other osteomyelitis, ankle and foot; Z20.822 Contact with and (suspected) exposure to COVID-19; L97.529 Non-pressure chronic ulcer of other part of left foot with unspecified severity; E11.621 Type 2 diabetes mellitus with foot ulcer; N18.4 Chronic kidney disease, stage 4 (severe); E11.22 Type 2 diabetes mellitus with diabetic chronic kidney disease; E78.5 Hyperlipidemia, unspecified; E11.40 Type 2 diabetes mellitus with diabetic neuropathy, unspecified; E11.51 Type 2 diabetes mellitus with diabetic peripheral angiopathy without gangrene; J44.9 Chronic obstructive pulmonary disease, unspecified; F41.9 Anxiety disorder, unspecified; K21.9 Gastro-esophageal reflux disease without esophagitis; F17.210 Nicotine dependence, cigarettes, uncomplicated; L28.1 Prurigo nodularis; N52.9 Male erectile dysfunction, unspecified; I25.10 Atherosclerotic heart disease of native coronary artery without angina pectoris; R00.1 Bradycardia, unspecified; I10 Essential (primary) hypertension; E11.9 Type 2 diabetes mellitus without complications; F12.10 Cannabis abuse, uncomplicated; F15.10 Other stimulant abuse, uncomplicated; Z60.2 Problems related to living alone; I25.5 Ischemic cardiomyopathy; Z95.1 Presence of aortocoronary bypass graft; Z79.899 Other long term (current) drug therapy; Z79.84 Long term (current) use of oral hypoglycemic drugs; Z79.82 Long term (current) use of aspirin; Z79.01 Long term (current) use of anticoagulants; Z90.89 Acquired absence of other organs; Z98.890 Other specified postprocedural states; Z82.49 Family history of ischemic heart disease and other diseases of the circulatory system
CPT/HCPCS: 36415; 36416; 36569; 80048; 80053; 80202; 82565; 85025; 85652; 86140; 88305; 88311; 96374; 96375; 97139; C1751; J1650; J2270; J2405; J2704; J3370; J7050; U0003; U0005

== ENCOUNTER 2022-08-06 10:24 | Outpatient (CLI) | payer OTHER ==
[2022-08-06 11:40] LABS: Hemoglobin A1c 7.1 % (4.0-6.0)
== END 2022-08-06 10:25 | disposition home or self-care (01) ==
LOC: RAD 10:24
PROVIDERS: ATTEND Preventive Medicine Undersea and Hyperbaric Medicine
DX: E11.621 Type 2 diabetes mellitus with foot ulcer (principal); L97.422 Non-pressure chronic ulcer of left heel and midfoot with fat layer exposed; Z89.422 Acquired absence of other left toe(s)
CPT/HCPCS: 83036; 86140

== ENCOUNTER 2022-09-15 16:13 | Inpatient (IN) | payer OTHER, MEDICAID ==
[2022-09-15] MEDS ORDERED: Morphine 4 MG/ML VIAL ONE (16:40)
[2022-09-15] MEDS ORDERED: Cefepime 2 GM VIAL ONE (16:40)
[2022-09-15] MEDS ORDERED: Vancomycin 1 GM/200 ML (FROZEN) BAG ONE (16:40)
[2022-09-15 16:52] LABS: #Eosinphils 0.3 thou/uL (0.0-0.7); #Lymphocytes 1.6 thou/uL (1.20-3.40); #Monocytes 0.7 thou/uL (0.11-0.59); #Neutrophils 8.9 thou/uL (1.40-6.50); %Basophils 0.3 % (0.0-1.0); %Eosinophils 2.6 % (0.0-10.0); %Monocytes 5.9 % (0.0-10.0); %Neutrophils 77.3 % (42.0-75.0); Hemoglobin 13.6 g/dL (14.0-18.0); Mean Corpuscular HGB CONC 33.3 g/dL (32.0-36.0); Mean Corpuscular Hemoglobin 28.9 pg (27.0-31.0); Mean Corpuscular Volume 86.7 fl (78.0-98.0); Mean Platelet Volume 8.6 fL (7.4-10.4); Platelet Count 436 10x3/uL (130-400); RBC Distribution Width 12.6 % (11.5-14.5); White Blood Cell (WBC) Count 11.6 10x3/uL (4.8-10.8)
[2022-09-15 17:09] LABS: ALT (SGPT) 10 U/L (8-55); AST (SGOT) 10 U/L (5-34); Albumin 4.2 g/dL (3.4-4.8); Alkaline Phosphatase 118 U/L (40-110); Anion Gap 15 mmol/L (10-20); BUN (Urea Nitrogen) 22 mg/dL (8.4-25.7); Bilirubin, Total 0.5 mg/dL (0.2-1.2); Calc. Creatinine Clearance 0 mL/min (70-130); Calcium 9.9 mg/dL (7.8-10.44); Carbon Dioxide 25 mmol/L (23-31); Chloride 100 mmol/L (98-107); Estimated GFR 31; Globulin 3.5 g/dL (2.4-3.5); Glucose 161 mg/dL (80-115); Potassium 4.1 mmol/L (3.5-5.1); Protein, Total 7.7 g/dL (5.8-8.1); Sodium 136 mmol/L (136-145)
[2022-09-15] MEDS ORDERED: Ondansetron PF 4 MG/2 ML Vial ONE (17:25)
[2022-09-15] MEDS ORDERED: Ondansetron PF 4 MG/2 ML Vial IVP PRN (20:00)
[2022-09-15] MEDS ORDERED: Ondansetron ODT 4 MG TAB SL PRN (20:00)
[2022-09-15] MEDS ORDERED: Acetaminophen 325 MG TAB PO PRN (20:00)
[2022-09-15 20:16] VITALS: BMI 30.4
[2022-09-15] MEDS ORDERED: Morphine 4 MG/ML VIAL SLOW IVP PRN (20:16)
[2022-09-15] MEDS: Morphine 4 MG/ML VIAL SLOW IVP PRN (20:34)
[2022-09-15] MEDS ORDERED: Vancomycin 1 GM in Premix Bag 1 BAG IVPB SCH (21:00)
[2022-09-15] MEDS ORDERED: Dextrose 5% in Water 1,000 ML IV PRN (22:26)
[2022-09-15] MEDS ORDERED: HumaLOG 300 UNITS/3 ML VIAL SC PRN ×2 (22:26)
[2022-09-15] MEDS ORDERED: Dextrose 50% Abboject 50 ML SYRINGE SLOW IVP PRN (22:26)
[2022-09-15 23:26] LABS: SARS-CoV-2 NAA Rapid Test Not Detected (NotDetected)
[2022-09-16] MEDS: Cefepime 2 GM in Sodium Chloride 0.9% 100 ML IVPB SCH ×2 (04:57→18:12)
[2022-09-16] MEDS: Morphine 4 MG/ML VIAL SLOW IVP PRN ×2 (05:06→20:19)
[2022-09-16] MEDS: Mometasone 200 MCG/Formoterol 5 MCG 120 PUFF INHALER INH SCH ×2 (07:09→18:56)
[2022-09-16 07:36] LABS: #Basophils 0.1 thou/uL (0.0-0.2); #Eosinphils 0.3 thou/uL (0.0-0.7); #Lymphocytes 1.1 thou/uL (1.20-3.40); #Monocytes 0.6 thou/uL (0.11-0.59); #Neutrophils 5.3 thou/uL (1.40-6.50); %Basophils 0.8 % (0.0-1.0); %Lymphocytes 14.7 % (21.0-51.0); %Monocytes 8.1 % (0.0-10.0); %Neutrophils 72.4 % (42.0-75.0); Hemoglobin 12.1 g/dL (14.0-18.0); Mean Corpuscular HGB CONC 32.3 g/dL (32.0-36.0); Mean Corpuscular Hemoglobin 28.5 pg (27.0-31.0); Mean Corpuscular Volume 88.2 fl (78.0-98.0); Mean Platelet Volume 8.1 fL (7.4-10.4); Platelet Count 387 10x3/uL (130-400); RBC Distribution Width 12.4 % (11.5-14.5); Red Blood Cell (RBC) Count 4.25 mill/uL (4.70-6.10); White Blood Cell (WBC) Count 7.4 10x3/uL (4.8-10.8)
[2022-09-16 08:09] LABS: ALT (SGPT) 8 U/L (8-55); AST (SGOT) 9 U/L (5-34); Albumin 3.5 g/dL (3.4-4.8); Alkaline Phosphatase 99 U/L (40-110); Anion Gap 13 mmol/L (10-20); BUN (Urea Nitrogen) 19 mg/dL (8.4-25.7); Bilirubin, Total 0.5 mg/dL (0.2-1.2); CRP (Inflammatory) 3.92 mg/dL (= or < 0.5); Calc. Creatinine Clearance 58 mL/min (70-130); Carbon Dioxide 21 mmol/L (23-31); Chloride 102 mmol/L (98-107); Estimated GFR 40; Globulin 2.8 g/dL (2.4-3.5); Glucose 110 mg/dL (80-115); Potassium 4.5 mmol/L (3.5-5.1); Protein, Total 6.3 g/dL (5.8-8.1); Sodium 131 mmol/L (136-145)
[2022-09-16] MEDS: metFORMIN 500 MG TAB PO SCH ×3 (08:14→20:21)
[2022-09-16] MEDS: Lisinopril 20 MG TAB PO SCH (08:14)
[2022-09-16] MEDS: hydrOXYzine 25 MG TAB PO SCH ×2 (08:14→20:19)
[2022-09-16] MEDS: Lactated Ringer's 1,000 ML IV SCH ×2 (10:01→18:20)
[2022-09-16 14:03] LABS: Creatinine, Urine 96.05 mg/dL (63-166)
[2022-09-16] MEDS ORDERED: fentaNYL PF 100 MCG/2 ML SYRINGE ONE (15:53)
[2022-09-16] MEDS ORDERED: Midazolam HCl 2 mg/2 ml Vial ONE (15:53)
[2022-09-16] MEDS ORDERED: Dexmedetomidine 200 MCG/2 ML VIAL ONE (15:53)
[2022-09-16] MEDS ORDERED: Ondansetron PF 4 MG/2 ML Vial ONE (15:57)
[2022-09-16] MEDS ORDERED: Succinylcholine 200 MG/10 ml SYRINGE FS ONE (15:57)
[2022-09-16] MEDS ORDERED: Labetalol HCl 100 MG/20 ML VIAL ONE (15:57)
[2022-09-16] MEDS ORDERED: ePHEDrine 50 MG/ML VIAL ONE (15:57)
[2022-09-16] MEDS ORDERED: Bacitracin Zinc Ointment 30 gm TUBE ONE (16:22)
[2022-09-16] MEDS ORDERED: Ondansetron HCl/PF 4 MG/2 ML Vial IVP PRN (16:42)
[2022-09-16] MEDS ORDERED: Vancomycin 1.5 GRAM/300 ML BAG 1.5 GM in Premix Bag 1 BAG IVPB SCH (20:00)
[2022-09-16] MEDS: Atorvastatin Calcium 40 MG TAB PO SCH (20:19)
[2022-09-17] MEDS: Cefepime 2 GM in Sodium Chloride 0.9% 100 ML IVPB SCH (04:31)
[2022-09-17] MEDS: Lactated Ringer's 1,000 ML IV SCH ×2 (04:36→11:57)
[2022-09-17 06:54] LABS: #Eosinphils 0.3 thou/uL (0.0-0.7); #Lymphocytes 1.2 thou/uL (1.20-3.40); #Monocytes 0.6 thou/uL (0.11-0.59); #Neutrophils 6.1 thou/uL (1.40-6.50); %Basophils 0.4 % (0.0-1.0); %Eosinophils 3.3 % (0.0-10.0); %Lymphocytes 14.9 % (21.0-51.0); %Monocytes 7.1 % (0.0-10.0); %Neutrophils 74.2 % (42.0-75.0); Mean Corpuscular HGB CONC 32.9 g/dL (32.0-36.0); Mean Corpuscular Hemoglobin 28.8 pg (27.0-31.0); Mean Corpuscular Volume 87.7 fl (78.0-98.0); Mean Platelet Volume 8.3 fL (7.4-10.4); Platelet Count 378 10x3/uL (130-400); RBC Distribution Width 12.3 % (11.5-14.5); Red Blood Cell (RBC) Count 4.15 mill/uL (4.70-6.10); White Blood Cell (WBC) Count 8.2 10x3/uL (4.8-10.8)
[2022-09-17] MEDS: Morphine 4 MG/ML VIAL SLOW IVP PRN (07:03)
[2022-09-17 07:17] LABS: ALT (SGPT) 7 U/L (8-55); AST (SGOT) 9 U/L (5-34); Albumin 3.4 g/dL (3.4-4.8); Alkaline Phosphatase 94 U/L (40-110); Anion Gap 11 mmol/L (10-20); BUN (Urea Nitrogen) 15 mg/dL (8.4-25.7); Bilirubin, Total 0.6 mg/dL (0.2-1.2); Calc. Creatinine Clearance 67 mL/min (70-130); Carbon Dioxide 25 mmol/L (23-31); Chloride 103 mmol/L (98-107); Estimated GFR 47; Globulin 2.6 g/dL (2.4-3.5); Glucose 89 mg/dL (80-115); Potassium 4.2 mmol/L (3.5-5.1); Sodium 135 mmol/L (136-145)
[2022-09-17] MEDS: Mometasone 200 MCG/Formoterol 5 MCG 120 PUFF INHALER INH SCH ×2 (08:13→19:24)
[2022-09-17] MEDS: Lisinopril 20 MG TAB PO SCH (08:27)
[2022-09-17] MEDS: hydrOXYzine 25 MG TAB PO SCH ×2 (08:27→20:42)
[2022-09-17] MEDS: metFORMIN 500 MG TAB PO SCH ×2 (08:37→17:29)
[2022-09-17] MEDS: traMADol HCl 50 MG TAB PO PRN ×2 (11:17→18:55)
[2022-09-17] MEDS ORDERED: Furosemide 40 MG/4 ML VIAL SLOW IVP SCH (11:30)
[2022-09-17] MEDS ORDERED: Furosemide 40 MG TAB PO SCH (11:45)
[2022-09-17] MEDS: Atorvastatin Calcium 40 MG TAB PO SCH (20:42)
[2022-09-17] MEDS: Amoxicillin/Potassium Clav 500 MG TAB PO SCH (20:42)
[2022-09-18] MEDS: Mometasone 200 MCG/Formoterol 5 MCG 120 PUFF INHALER INH SCH (07:21)
[2022-09-18 07:28] LABS: #Eosinphils 0.3 thou/uL (0.0-0.7); #Lymphocytes 1.2 thou/uL (1.20-3.40); #Monocytes 0.6 thou/uL (0.11-0.59); #Neutrophils 4.8 thou/uL (1.40-6.50); %Basophils 0.6 % (0.0-1.0); %Eosinophils 4.8 % (0.0-10.0); %Lymphocytes 17.3 % (21.0-51.0); %Monocytes 7.9 % (0.0-10.0); %Neutrophils 69.3 % (42.0-75.0); Mean Corpuscular HGB CONC 32.5 g/dL (32.0-36.0); Mean Corpuscular Hemoglobin 28.3 pg (27.0-31.0); Mean Corpuscular Volume 87.1 fl (78.0-98.0); Mean Platelet Volume 8.2 fL (7.4-10.4); Platelet Count 386 10x3/uL (130-400); RBC Distribution Width 12.4 % (11.5-14.5); Red Blood Cell (RBC) Count 4.59 mill/uL (4.70-6.10); White Blood Cell (WBC) Count 6.9 10x3/uL (4.8-10.8)
[2022-09-18 07:55] LABS: ALT (SGPT) 7 U/L (8-55); AST (SGOT) 9 U/L (5-34); Albumin 3.6 g/dL (3.4-4.8); Alkaline Phosphatase 100 U/L (40-110); Anion Gap 11 mmol/L (10-20); BUN (Urea Nitrogen) 14 mg/dL (8.4-25.7); Bilirubin, Total 0.4 mg/dL (0.2-1.2); Calc. Creatinine Clearance 69 mL/min (70-130); Calcium 9.2 mg/dL (7.8-10.44); Carbon Dioxide 27 mmol/L (23-31); Chloride 102 mmol/L (98-107); Estimated GFR 49; Globulin 2.8 g/dL (2.4-3.5); Glucose 101 mg/dL (80-115); Potassium 4.3 mmol/L (3.5-5.1); Protein, Total 6.4 g/dL (5.8-8.1); Sodium 136 mmol/L (136-145)
[2022-09-18] MEDS: metFORMIN 500 MG TAB PO SCH (09:05)
[2022-09-18] MEDS: Lisinopril 20 MG TAB PO SCH (09:06)
[2022-09-18] MEDS: Amoxicillin/Potassium Clav 500 MG TAB PO SCH (09:06)
[2022-09-18] MEDS: hydrOXYzine 25 MG TAB PO SCH (09:06)
[2022-09-18] MEDS: traMADol HCl 50 MG TAB PO PRN (10:01)
[2022-09-18 15:56] VITALS: BP 130/74; TEMP 97.8
== END 2022-09-18 16:25 | disposition home or self-care (01) | DRG 617 ==
LOC: ERS 16:13 → T4-B 18:07 → OBSVTOIN 09-16 12:58
PROVIDERS: ADMIT Student in an Organized Health Care Education/Training Program; ATTEND Student in an Organized Health Care Education/Training Program
PROC: 0Y6V0Z1 Detachment at Right 4th Toe, High, Open Approach (ICD-10-PCS; principal; 2022-09-16)
DX: E11.69 Type 2 diabetes mellitus with other specified complication (principal); E11.52 Type 2 diabetes mellitus with diabetic peripheral angiopathy with gangrene; I13.0 Hypertensive heart and chronic kidney disease with heart failure and stage 1 through stage 4 chronic kidney disease, or unspecified chronic kidney disease; I50.22 Chronic systolic (congestive) heart failure; L03.115 Cellulitis of right lower limb; M86.8X7 Other osteomyelitis, ankle and foot; I42.9 Cardiomyopathy, unspecified; I96 Gangrene, not elsewhere classified; N17.9 Acute kidney failure, unspecified; N18.9 Chronic kidney disease, unspecified; E11.22 Type 2 diabetes mellitus with diabetic chronic kidney disease; J44.9 Chronic obstructive pulmonary disease, unspecified; K21.9 Gastro-esophageal reflux disease without esophagitis; F17.210 Nicotine dependence, cigarettes, uncomplicated; F12.10 Cannabis abuse, uncomplicated; F15.10 Other stimulant abuse, uncomplicated; F41.9 Anxiety disorder, unspecified; Z60.2 Problems related to living alone; I25.10 Atherosclerotic heart disease of native coronary artery without angina pectoris; Z20.822 Contact with and (suspected) exposure to COVID-19; E78.5 Hyperlipidemia, unspecified; I25.2 Old myocardial infarction; Z95.1 Presence of aortocoronary bypass graft; Z79.84 Long term (current) use of oral hypoglycemic drugs; Z79.82 Long term (current) use of aspirin; Z79.899 Other long term (current) drug therapy; Z90.89 Acquired absence of other organs; Z89.411 Acquired absence of right great toe; Z89.422 Acquired absence of other left toe(s); Z89.421 Acquired absence of other right toe(s)
CPT/HCPCS: 36415; 36416; 80053; 82570; 83605; 84300; 85025; 85652; 86140; 87040; 87070; 87076; 87077; 87186; 87205; 88305; 88311; 96361; 96365; 96367; 96375; 97139; G0378; J0692; J2250; J2270; J2405; J3370; J3370-JW; J3490; J7120; U0002

== ENCOUNTER 2022-10-17 11:52 | Outpatient (CLI) | payer OTHER | END 2022-10-17 11:53 | disposition home or self-care (01) | LOC: BICRAD 11:52 | PROVIDERS: ATTEND Student in an Organized Health Care Education/Training Program | DX: M79.672 Pain in left foot (principal); Z98.890 Other specified postprocedural states ==

== ENCOUNTER 2022-11-05 04:18 | Emergency (ER) | payer OTHER | END 2022-11-05 04:43 | disposition home or self-care (01) | LOC: ERS 04:18 | DX: L98.499 Non-pressure chronic ulcer of skin of other sites with unspecified severity (principal); I10 Essential (primary) hypertension; E11.9 Type 2 diabetes mellitus without complications; J44.9 Chronic obstructive pulmonary disease, unspecified; F17.210 Nicotine dependence, cigarettes, uncomplicated | CPT/HCPCS: 99283 ==

== ENCOUNTER 2022-11-20 11:11 | Outpatient (CLI) | payer OTHER | END 2022-11-20 11:12 | disposition home or self-care (01) | LOC: BICRAD 11:11 | PROVIDERS: ATTEND Student in an Organized Health Care Education/Training Program | DX: L03.90 Cellulitis, unspecified (principal); S60.351A Superficial foreign body of right thumb, initial encounter ==

== ENCOUNTER 2022-11-26 06:33 | Emergency (ER) | payer OTHER, MEDICAID ==
[2022-11-26] MEDS ORDERED: diphenhydrAMINE 25 MG CAP ONE (07:10)
[2022-11-26 07:23] LABS: #Eosinphils 0.2 thou/uL (0.0-0.7); #Lymphocytes 1.4 thou/uL (1.20-3.40); #Monocytes 0.5 thou/uL (0.11-0.59); #Neutrophils 4.6 thou/uL (1.40-6.50); %Basophils 0.6 % (0.0-1.0); %Monocytes 7.5 % (0.0-10.0); %Neutrophils 67.9 % (42.0-75.0); Hemoglobin 12.6 g/dL (14.0-18.0); Mean Corpuscular HGB CONC 32.6 g/dL (32.0-36.0); Mean Corpuscular Hemoglobin 27.8 pg (27.0-31.0); Mean Corpuscular Volume 85.3 fl (78.0-98.0); Mean Platelet Volume 8.5 fL (7.4-10.4); Platelet Count 314 10x3/uL (130-400); RBC Distribution Width 12.8 % (11.5-14.5); Red Blood Cell (RBC) Count 4.54 mill/uL (4.70-6.10); White Blood Cell (WBC) Count 6.8 10x3/uL (4.8-10.8)
[2022-11-26 07:37] LABS: ALT (SGPT) 13 U/L (8-55); AST (SGOT) 12 U/L (5-34); Albumin 3.9 g/dL (3.4-4.8); Alkaline Phosphatase 117 U/L (40-110); Anion Gap 13 mmol/L (10-20); BUN (Urea Nitrogen) 15 mg/dL (8.4-25.7); Bilirubin, Total 0.6 mg/dL (0.2-1.2); Calc. Creatinine Clearance 0 mL/min (70-130); Calcium 9.2 mg/dL (7.8-10.44); Carbon Dioxide 24 mmol/L (23-31); Chloride 103 mmol/L (98-107); Estimated GFR 38; Globulin 2.5 g/dL (2.4-3.5); Glucose 253 mg/dL (83-110); Potassium 3.9 mmol/L (3.5-5.1); Protein, Total 6.4 g/dL (5.8-8.1); Sodium 136 mmol/L (136-145)
== END 2022-11-26 07:53 | disposition home or self-care (01) ==
LOC: ERS 06:33
DX: R21 Rash and other nonspecific skin eruption (principal); I10 Essential (primary) hypertension; E11.9 Type 2 diabetes mellitus without complications; J44.9 Chronic obstructive pulmonary disease, unspecified; F17.210 Nicotine dependence, cigarettes, uncomplicated
CPT/HCPCS: 36415; 80053; 85025; 99283

== ENCOUNTER 2022-12-02 11:28 | Observation (INO) | payer OTHER, MEDICAID ==
[2022-12-02 13:21] LABS: #Basophils 0.1 thou/uL (0.0-0.2); #Eosinphils 0.2 thou/uL (0.0-0.7); #Lymphocytes 1.4 thou/uL (1.20-3.40); #Monocytes 0.5 thou/uL (0.11-0.59); #Neutrophils 4.1 thou/uL (1.40-6.50); %Basophils 0.8 % (0.0-1.0); %Lymphocytes 21.8 % (21.0-51.0); %Monocytes 8.6 % (0.0-10.0); %Neutrophils 65.7 % (42.0-75.0); Hemoglobin 12.6 g/dL (14.0-18.0); Mean Corpuscular HGB CONC 32.9 g/dL (32.0-36.0); Mean Corpuscular Hemoglobin 28.1 pg (27.0-31.0); Mean Corpuscular Volume 85.6 fl (78.0-98.0); Mean Platelet Volume 8.5 fL (7.4-10.4); Platelet Count 290 10x3/uL (130-400); RBC Distribution Width 13.2 % (11.5-14.5); Red Blood Cell (RBC) Count 4.49 mill/uL (4.70-6.10); White Blood Cell (WBC) Count 6.2 10x3/uL (4.8-10.8)
[2022-12-02 13:41] LABS: ALT (SGPT) 17 U/L (8-55); AST (SGOT) 13 U/L (5-34); Albumin 3.7 g/dL (3.4-4.8); Alkaline Phosphatase 104 U/L (40-110); Anion Gap 10 mmol/L (10-20); BUN (Urea Nitrogen) 18 mg/dL (8.4-25.7); Bilirubin, Total 0.5 mg/dL (0.2-1.2); Calc. Creatinine Clearance 0 mL/min (70-130); Calcium 9.4 mg/dL (7.8-10.44); Carbon Dioxide 24 mmol/L (23-31); Chloride 106 mmol/L (98-107); Estimated GFR 42; Globulin 2.7 g/dL (2.4-3.5); Glucose 165 mg/dL (83-110); Potassium 4.3 mmol/L (3.5-5.1); Protein, Total 6.4 g/dL (5.8-8.1); Sodium 136 mmol/L (136-145)
[2022-12-02 16:20] VITALS: BMI 32.2
[2022-12-02] MEDS ORDERED: cefTRIAXone\\ROCEPHIN 1 GM in Sodium Chloride 0.9% 100 ML IVPB SCH (17:00)
[2022-12-02] MEDS: metFORMIN 500 MG TAB PO SCH (17:33)
[2022-12-02] MEDS ORDERED: VANCOMYCIN 2 GRAM/500 ML BAG 2 GM in Premix Bag 1 BAG IVPB SCH (18:00)
[2022-12-02 18:04] LABS: Amphetamine Detected (NotDetected); Barbiturates Screen Not Detected (NotDetected); Benzodiazepine Screen Not Detected (NotDetected); Cocaine Metabolite Screen Not Detected (NotDetected); Methadone Not Detected (NotDetected); Methamphetamine Detected (NotDetected); Opiate Screen Not Detected (NotDetected); Oxycodone Screen Not Detected (NotDetected); Phencyclidine (PCP) Not Detected (NotDetected); THC/Cannabinoid Screen Not Detected (NotDetected); Tricyclic Screen Not Detected (NotDetected)
[2022-12-02] MEDS: Mometasone 200 MCG/Formoterol 5 MCG 120 PUFF INHALER INH SCH (19:23)
[2022-12-02] MEDS ORDERED: Atorvastatin Calcium 40 MG TAB PO SCH (21:00)
[2022-12-02] MEDS: hydrOXYzine 25 MG TAB PO SCH (21:03)
[2022-12-02] MEDS: traMADol HCl 50 MG TAB PO PRN (21:06)
[2022-12-03] MEDS: Amlodipine 10 MG TAB PO SCH ×2 (06:10→08:25)
[2022-12-03 07:57] LABS: ALT (SGPT) 16 U/L (8-55); AST (SGOT) 12 U/L (5-34); Albumin 3.8 g/dL (3.4-4.8); Alkaline Phosphatase 114 U/L (40-110); Anion Gap 11 mmol/L (10-20); BUN (Urea Nitrogen) 17 mg/dL (8.4-25.7); Calc. Creatinine Clearance 74 mL/min (70-130); Calcium 9.2 mg/dL (7.8-10.44); Carbon Dioxide 24 mmol/L (23-31); Chloride 103 mmol/L (98-107); Estimated GFR 50; Globulin 2.6 g/dL (2.4-3.5); Glucose 137 mg/dL (83-110); Potassium 4.2 mmol/L (3.5-5.1); Protein, Total 6.4 g/dL (5.8-8.1); Sodium 134 mmol/L (136-145)
[2022-12-03] MEDS: Mometasone 200 MCG/Formoterol 5 MCG 120 PUFF INHALER INH SCH (08:02)
[2022-12-03] MEDS: metFORMIN 500 MG TAB PO SCH ×2 (08:25→18:06)
[2022-12-03] MEDS: hydrOXYzine 25 MG TAB PO SCH (08:25)
[2022-12-03] MEDS: traMADol HCl 50 MG TAB PO PRN (08:30)
[2022-12-03] MEDS ORDERED: Aspirin 81 mg Enteric Coated Tablet PO SCH (09:00)
[2022-12-03 16:53] VITALS: TEMP 97.6
[2022-12-03 18:09] VITALS: BP 142/85
== END 2022-12-03 18:37 | disposition home or self-care (01) ==
LOC: INTOOBSV 11:28 → T4-A 11:28
PROVIDERS: ADMIT Family Medicine; ATTEND Family Medicine
DX: E11.622 Type 2 diabetes mellitus with other skin ulcer (principal); L98.499 Non-pressure chronic ulcer of skin of other sites with unspecified severity; E11.621 Type 2 diabetes mellitus with foot ulcer; L97.519 Non-pressure chronic ulcer of other part of right foot with unspecified severity; E11.51 Type 2 diabetes mellitus with diabetic peripheral angiopathy without gangrene; J44.9 Chronic obstructive pulmonary disease, unspecified; K21.9 Gastro-esophageal reflux disease without esophagitis; I25.10 Atherosclerotic heart disease of native coronary artery without angina pectoris; E78.5 Hyperlipidemia, unspecified; I25.2 Old myocardial infarction; I13.0 Hypertensive heart and chronic kidney disease with heart failure and stage 1 through stage 4 chronic kidney disease, or unspecified chronic kidney disease; E11.22 Type 2 diabetes mellitus with diabetic chronic kidney disease; N18.4 Chronic kidney disease, stage 4 (severe); I50.20 Unspecified systolic (congestive) heart failure; F17.210 Nicotine dependence, cigarettes, uncomplicated; F15.10 Other stimulant abuse, uncomplicated; Z79.82 Long term (current) use of aspirin; Z79.84 Long term (current) use of oral hypoglycemic drugs; Z79.899 Other long term (current) drug therapy; Z95.1 Presence of aortocoronary bypass graft; Z95.5 Presence of coronary angioplasty implant and graft; Z89.021 Acquired absence of right finger(s); Z89.412 Acquired absence of left great toe; Z89.421 Acquired absence of other right toe(s); Z89.422 Acquired absence of other left toe(s); Z20.822 Contact with and (suspected) exposure to COVID-19
CPT/HCPCS: 36415; 36416; 80053; 80306; 85025; 85652; 86140; 87040; 87070; 87077; 87186; 87205; 97139; J0696; J3370; J3490; U0003; U0005

== ENCOUNTER 2023-01-09 15:07 | Inpatient (IN) | payer OTHER, MEDICAID ==
[~2023-01-09 15:07] MED LIST: Iopamidol-370 76% 500 ML MDV (1 ML CHARGE) ONE
[2023-01-09 15:49] LABS: #Eosinphils 0.2 thou/uL (0.0-0.7); #Lymphocytes 1.3 thou/uL (1.20-3.40); #Monocytes 0.7 thou/uL (0.11-0.59); %Basophils 0.5 % (0.0-1.0); %Eosinophils 2.4 % (0.0-10.0); %Lymphocytes 15.5 % (21.0-51.0); %Monocytes 8.2 % (0.0-10.0); %Neutrophils 73.5 % (42.0-75.0); Hemoglobin 12.7 g/dL (14.0-18.0); Mean Corpuscular HGB CONC 32.9 g/dL (32.0-36.0); Mean Corpuscular Hemoglobin 27.7 pg (27.0-31.0); Mean Corpuscular Volume 84.3 fl (78.0-98.0); Mean Platelet Volume 9.2 fL (7.4-10.4); Platelet Count 280 10x3/uL (130-400); RBC Distribution Width 13.8 % (11.5-14.5); White Blood Cell (WBC) Count 8.1 10x3/uL (4.8-10.8)
[2023-01-09] MEDS ORDERED: Nitroglycerin 2% Ointment 1 INCH/1 GM Packet ONE (15:58)
[2023-01-09] MEDS ORDERED: cefTRIAXone (ROCEPHIN) 1 GM VIAL ONE (15:58)
[2023-01-09] MEDS ORDERED: Furosemide 40 MG/4 ML VIAL ONE (15:58)
[2023-01-09] MEDS ORDERED: Aspirin Chewable 81 MG TAB ONE (15:58)
[2023-01-09 16:09] LABS: ALT (SGPT) 31 U/L (8-55); AST (SGOT) 27 U/L (5-34); Albumin 3.8 g/dL (3.4-4.8); Alkaline Phosphatase 117 U/L (40-110); Anion Gap 13 mmol/L (10-20); BUN (Urea Nitrogen) 26 mg/dL (8.4-25.7); Calc. Creatinine Clearance 0 mL/min (70-130); Calcium 9.2 mg/dL (7.8-10.44); Carbon Dioxide 23 mmol/L (23-31); Chloride 105 mmol/L (98-107); Estimated GFR 30; Glucose 146 mg/dL (83-110); Protein, Total 6.8 g/dL (5.8-8.1); Sodium 137 mmol/L (136-145)
[2023-01-09] MEDS ORDERED: Azithromycin 500 MG VIAL ONE (16:26)
[2023-01-09 16:46] LABS: SARS-CoV-2 NAA Rapid Test Not Detected (NotDetected)
[2023-01-09 17:02] LABS: INR-International Normal Ratio 1.3; PTT 32.3 sec (22.9-36.1); Prothrombin Time 16.6 sec (12.0-14.7)
[2023-01-09] MEDS ORDERED: FENTANYL 50 MCG/ML 1 ML VIAL ONE (17:06)
[2023-01-09 17:08] LABS: Amphetamine Detected (NotDetected); Barbiturates Screen Not Detected (NotDetected); Benzodiazepine Screen Not Detected (NotDetected); Cocaine Metabolite Screen Not Detected (NotDetected); Methadone Not Detected (NotDetected); Methamphetamine Detected (NotDetected); Opiate Screen Not Detected (NotDetected); Oxycodone Screen Not Detected (NotDetected); Phencyclidine (PCP) Not Detected (NotDetected); THC/Cannabinoid Screen Not Detected (NotDetected); Tricyclic Screen Not Detected (NotDetected)
[2023-01-09 17:11] LABS: Acetaminophen Less than 10.0 mcg/mL (10.0-30.0); Alcohol Less than 10 mg/dL (Less than 10); CK (CPK) 195 U/L (30-200); Lipase 35 U/L (8-78); Salicylate Less than 8.0 mg/dL (15.0-30.0)
[2023-01-09 17:34] LABS: CKMB 5.3 ng/mL (0-6.6)
[2023-01-09] MEDS ORDERED: Acetaminophen 325 MG TAB PO PRN (18:42)
[2023-01-09] MEDS ORDERED: Ipratropium/Albuterol 3 ML NEB NEB PRN (19:20)
[2023-01-09] MEDS ORDERED: Dextrose 50% Abboject 50 ML SYRINGE SLOW IVP PRN (20:57)
[2023-01-09] MEDS ORDERED: Dextrose 5% in Water 1,000 ML IV PRN (20:57)
[2023-01-09] MEDS: hydrALAZINE 25 MG TAB PO SCH (21:20)
[2023-01-09] MEDS: Atorvastatin Calcium 40 MG TAB PO SCH (21:20)
[2023-01-09] MEDS: traMADol HCl 50 MG TAB PO PRN (21:21)
[2023-01-09] MEDS: hydrOXYzine 25 MG TAB PO SCH (21:21)
[2023-01-09] MEDS: Enoxaparin 120 MG/0.8 ML SYRINGE SC SCH (21:22)
[2023-01-09 21:39] LABS: Magnesium 1.9 mg/dL (1.6-2.6)
[2023-01-09 21:43] LABS: Troponin I 0.033 ng/mL (< 0.028)
[2023-01-09] MEDS ORDERED: Ipratropium/Albuterol 3 ML NEB NEB SCH (22:30)
[2023-01-09] MEDS ORDERED: Furosemide 20 MG/2 ML VIAL SLOW IVP SCH (22:30)
[2023-01-09] MEDS ORDERED: Magnesium 2 GM/50 ML(in water) 2 GM in Premix Bag 1 BAG IVPB SCH (22:45)
[2023-01-09 23:47] LABS: Troponin I 0.032 ng/mL (< 0.028)
[2023-01-10] MEDS: Ipratropium/Albuterol 3 ML NEB NEB SCH ×4 (01:35→18:30)
[2023-01-10] MEDS: Furosemide 40 MG/4 ML VIAL SLOW IVP SCH ×2 (04:59→13:05)
[2023-01-10 05:06] LABS: #Basophils 0.1 thou/uL (0.0-0.2); #Eosinphils 0.3 thou/uL (0.0-0.7); #Lymphocytes 1.7 thou/uL (1.20-3.40); #Monocytes 0.6 thou/uL (0.11-0.59); #Neutrophils 4.6 thou/uL (1.40-6.50); %Basophils 0.8 % (0.0-1.0); %Eosinophils 3.7 % (0.0-10.0); %Lymphocytes 23.8 % (21.0-51.0); %Monocytes 8.2 % (0.0-10.0); %Neutrophils 63.5 % (42.0-75.0); Hemoglobin 12.7 g/dL (14.0-18.0); Mean Corpuscular HGB CONC 31.7 g/dL (32.0-36.0); Mean Corpuscular Hemoglobin 27.2 pg (27.0-31.0); Mean Corpuscular Volume 85.9 fl (78.0-98.0); Mean Platelet Volume 8.8 fL (7.4-10.4); Platelet Count 284 10x3/uL (130-400); RBC Distribution Width 13.6 % (11.5-14.5); Red Blood Cell (RBC) Count 4.67 mill/uL (4.70-6.10); White Blood Cell (WBC) Count 7.2 10x3/uL (4.8-10.8)
[2023-01-10 05:31] LABS: Anion Gap 15 mmol/L (10-20); BUN (Urea Nitrogen) 25 mg/dL (8.4-25.7); Calc. Creatinine Clearance 54 mL/min (70-130); Calcium 9.3 mg/dL (7.8-10.44); Carbon Dioxide 23 mmol/L (23-31); Chloride 102 mmol/L (98-107); Estimated GFR 34; Glucose 110 mg/dL (83-110); Magnesium 2.2 mg/dL (1.6-2.6); Sodium 136 mmol/L (136-145)
[2023-01-10 07:12] LABS: Hemoglobin A1c 7.4 % (4.0-6.0)
[2023-01-10] MEDS: Mometasone 200 MCG/Formoterol 5 MCG 120 PUFF INHALER INH SCH ×2 (07:33→18:38)
[2023-01-10] MEDS: Aspirin 81 mg Enteric Coated Tablet PO SCH (08:36)
[2023-01-10] MEDS: hydrALAZINE 25 MG TAB PO SCH ×2 (08:36→20:27)
[2023-01-10] MEDS: Enoxaparin 120 MG/0.8 ML SYRINGE SC SCH ×2 (08:36→20:27)
[2023-01-10] MEDS: traMADol HCl 50 MG TAB PO PRN ×2 (08:37→20:26)
[2023-01-10] MEDS: hydrOXYzine 25 MG TAB PO SCH ×2 (08:38→20:27)
[2023-01-10] MEDS ORDERED: NIFEdipine XL 30 MG TAB PO SCH (09:00)
[2023-01-10] MEDS: HumaLOG 300 UNITS/3 ML VIAL SC PRN ×2 (13:05→17:38)
[2023-01-10] MEDS: Atorvastatin Calcium 40 MG TAB PO SCH (20:27)
[2023-01-11] MEDS: Ipratropium/Albuterol 3 ML NEB NEB SCH ×3 (00:50→14:34)
[2023-01-11] MEDS: traMADol HCl 50 MG TAB PO PRN ×3 (04:52→23:40)
[2023-01-11] MEDS: Furosemide 40 MG/4 ML VIAL SLOW IVP SCH ×2 (04:52→14:10)
[2023-01-11 05:53] LABS: #Basophils 0.1 thou/uL (0.0-0.2); #Eosinphils 0.2 thou/uL (0.0-0.7); #Lymphocytes 1.6 thou/uL (1.20-3.40); #Monocytes 0.7 thou/uL (0.11-0.59); #Neutrophils 5.4 thou/uL (1.40-6.50); %Basophils 0.7 % (0.0-1.0); %Lymphocytes 20.1 % (21.0-51.0); %Monocytes 8.3 % (0.0-10.0); %Neutrophils 67.9 % (42.0-75.0); Hemoglobin 13.5 g/dL (14.0-18.0); Mean Corpuscular HGB CONC 32.3 g/dL (32.0-36.0); Mean Corpuscular Hemoglobin 27.1 pg (27.0-31.0); Mean Corpuscular Volume 83.7 fl (78.0-98.0); Mean Platelet Volume 9.1 fL (7.4-10.4); Platelet Count 289 10x3/uL (130-400); RBC Distribution Width 13.8 % (11.5-14.5)
[2023-01-11 06:21] LABS: Anion Gap 15 mmol/L (10-20); BUN (Urea Nitrogen) 23 mg/dL (8.4-25.7); Calc. Creatinine Clearance 57 mL/min (70-130); Calcium 9.4 mg/dL (7.8-10.44); Carbon Dioxide 26 mmol/L (23-31); Chloride 100 mmol/L (98-107); Estimated GFR 38; Glucose 114 mg/dL (83-110); Potassium 3.8 mmol/L (3.5-5.1); Sodium 137 mmol/L (136-145)
[2023-01-11] MEDS: Mometasone 200 MCG/Formoterol 5 MCG 120 PUFF INHALER INH SCH ×2 (07:20→18:28)
[2023-01-11] MEDS: hydrOXYzine 25 MG TAB PO SCH ×2 (08:20→20:39)
[2023-01-11] MEDS: Empagliflozin 10 MG TAB PO SCH (08:20)
[2023-01-11] MEDS: Aspirin 81 mg Enteric Coated Tablet PO SCH (08:20)
[2023-01-11] MEDS: hydrALAZINE 25 MG TAB PO SCH ×2 (08:20→20:39)
[2023-01-11] MEDS: Enoxaparin 120 MG/0.8 ML SYRINGE SC SCH ×2 (08:20→20:39)
[2023-01-11] MEDS ORDERED: Ipratropium/Albuterol 3 ML NEB NEB PRN (15:05)
[2023-01-11] MEDS: Atorvastatin Calcium 40 MG TAB PO SCH (20:39)
[2023-01-12] MEDS: Furosemide 40 MG/4 ML VIAL SLOW IVP SCH (05:03)
[2023-01-12 05:19] LABS: #Basophils 0.1 thou/uL (0.0-0.2); #Eosinphils 0.3 thou/uL (0.0-0.7); #Lymphocytes 1.9 thou/uL (1.20-3.40); #Monocytes 0.7 thou/uL (0.11-0.59); #Neutrophils 4.6 thou/uL (1.40-6.50); %Basophils 0.7 % (0.0-1.0); %Eosinophils 4.2 % (0.0-10.0); %Lymphocytes 24.4 % (21.0-51.0); %Monocytes 9.8 % (0.0-10.0); %Neutrophils 60.9 % (42.0-75.0); Mean Corpuscular HGB CONC 32.7 g/dL (32.0-36.0); Mean Corpuscular Hemoglobin 27.5 pg (27.0-31.0); Mean Corpuscular Volume 84.3 fl (78.0-98.0); Mean Platelet Volume 8.9 fL (7.4-10.4); Platelet Count 311 10x3/uL (130-400); RBC Distribution Width 13.5 % (11.5-14.5); Red Blood Cell (RBC) Count 5.08 mill/uL (4.70-6.10); White Blood Cell (WBC) Count 7.6 10x3/uL (4.8-10.8)
[2023-01-12 05:42] LABS: Anion Gap 15 mmol/L (10-20); BUN (Urea Nitrogen) 25 mg/dL (8.4-25.7); Calc. Creatinine Clearance 52 mL/min (70-130); Calcium 9.6 mg/dL (7.8-10.44); Carbon Dioxide 28 mmol/L (23-31); Chloride 97 mmol/L (98-107); Estimated GFR 34; Glucose 118 mg/dL (83-110); Magnesium 2.2 mg/dL (1.6-2.6); Potassium 3.8 mmol/L (3.5-5.1); Sodium 136 mmol/L (136-145)
[2023-01-12] MEDS: Mometasone 200 MCG/Formoterol 5 MCG 120 PUFF INHALER INH SCH (07:20)
[2023-01-12] MEDS: Empagliflozin 10 MG TAB PO SCH (08:59)
[2023-01-12] MEDS: Aspirin 81 mg Enteric Coated Tablet PO SCH (08:59)
[2023-01-12] MEDS: hydrOXYzine 25 MG TAB PO SCH (09:00)
[2023-01-12] MEDS: Enoxaparin 120 MG/0.8 ML SYRINGE SC SCH (09:00)
[2023-01-12] MEDS ORDERED: hydrALAZINE 10 MG TAB PO SCH (09:00)
[2023-01-12] MEDS: HumaLOG 300 UNITS/3 ML VIAL SC PRN (11:08)
[2023-01-12 13:38] VITALS: BMI 30.5
[2023-01-12 16:56] VITALS: BP 129/78; TEMP 98.5
== END 2023-01-12 17:18 | disposition left against medical advice (07) | DRG 291 ==
LOC: ERS 15:07 → 2SW 18:20
PROVIDERS: ADMIT Family Medicine; ATTEND Family Medicine
DX: I13.0 Hypertensive heart and chronic kidney disease with heart failure and stage 1 through stage 4 chronic kidney disease, or unspecified chronic kidney disease (principal); I50.23 Acute on chronic systolic (congestive) heart failure; N17.9 Acute kidney failure, unspecified; N18.4 Chronic kidney disease, stage 4 (severe); I25.10 Atherosclerotic heart disease of native coronary artery without angina pectoris; F17.210 Nicotine dependence, cigarettes, uncomplicated; J44.9 Chronic obstructive pulmonary disease, unspecified; E11.22 Type 2 diabetes mellitus with diabetic chronic kidney disease; F15.10 Other stimulant abuse, uncomplicated; I48.91 Unspecified atrial fibrillation; I25.5 Ischemic cardiomyopathy; Z20.822 Contact with and (suspected) exposure to COVID-19; Z71.6 Tobacco abuse counseling; Z98.890 Other specified postprocedural states; Z95.1 Presence of aortocoronary bypass graft; Z82.49 Family history of ischemic heart disease and other diseases of the circulatory system; Z79.82 Long term (current) use of aspirin; Z79.899 Other long term (current) drug therapy; Z79.84 Long term (current) use of oral hypoglycemic drugs; Z79.51 Long term (current) use of inhaled steroids; Z95.5 Presence of coronary angioplasty implant and graft
CPT/HCPCS: 36415; 36416; 71045; 74177; 80048; 80053; 80306; 80307; 82550; 82553; 83036; 83605; 83690; 83735; 83880; 84443; 84484; 85025; 85610; 85730; 87040; 93005; 93306; 94640; 94664; 96365; 96367; 96375; 97139; J0456; J0696; J1650; J1815; J1940; J3010; J3475; J7620; Q9967

== ENCOUNTER 2023-01-14 00:47 | Emergency (ER) | payer OTHER | END 2023-01-14 01:48 | disposition left against medical advice (07) | LOC: ERS 00:47 | DX: Z53.21 Procedure and treatment not carried out due to patient leaving prior to being seen by health care provider (principal) | CPT/HCPCS: 71045; 93005 ==

== ENCOUNTER 2023-01-21 21:04 | Observation (INO) | payer OTHER, MEDICAID ==
[2023-01-21] MEDS ORDERED: Aspirin Chewable 81 MG TAB ONE (21:35)
[2023-01-21 21:37] LABS: #Eosinphils 0.2 thou/uL (0.0-0.7); #Lymphocytes 1.3 thou/uL (1.20-3.40); #Neutrophils 6.9 thou/uL (1.40-6.50); %Basophils 0.3 % (0.0-1.0); %Eosinophils 2.3 % (0.0-10.0); %Lymphocytes 13.7 % (21.0-51.0); %Monocytes 10.7 % (0.0-10.0); %Neutrophils 73.1 % (42.0-75.0); Hemoglobin 14.2 g/dL (14.0-18.0); Mean Corpuscular HGB CONC 32.1 g/dL (32.0-36.0); Mean Corpuscular Volume 84.3 fl (78.0-98.0); Mean Platelet Volume 9.7 fL (7.4-10.4); Platelet Count 294 10x3/uL (130-400); RBC Distribution Width 13.5 % (11.5-14.5); Red Blood Cell (RBC) Count 5.24 mill/uL (4.70-6.10); White Blood Cell (WBC) Count 9.4 10x3/uL (4.8-10.8)
[2023-01-21 21:58] LABS: ALT (SGPT) 25 U/L (8-55); AST (SGOT) 22 U/L (5-34); Albumin 4.2 g/dL (3.4-4.8); Alkaline Phosphatase 129 U/L (40-110); Anion Gap 14 mmol/L (10-20); BUN (Urea Nitrogen) 21 mg/dL (8.4-25.7); Bilirubin, Total 0.6 mg/dL (0.2-1.2); Calc. Creatinine Clearance 0 mL/min (70-130); Calcium 9.5 mg/dL (7.8-10.44); Carbon Dioxide 22 mmol/L (23-31); Chloride 104 mmol/L (98-107); Estimated GFR 37; Globulin 3.2 g/dL (2.4-3.5); Glucose 158 mg/dL (83-110); Lipase 27 U/L (8-78); Potassium 4.4 mmol/L (3.5-5.1); Protein, Total 7.4 g/dL (5.8-8.1); Sodium 136 mmol/L (136-145)
[2023-01-21] MEDS ORDERED: Furosemide 20 MG/2 ML VIAL ONE (22:27)
[2023-01-21] MEDS ORDERED: Furosemide 40 MG/4 ML VIAL ONE (22:27)
[2023-01-21 22:48] LABS: SARS-CoV-2 NAA Rapid Test Not Detected (NotDetected)
[2023-01-21] MEDS ORDERED: Nitroglycerin 2% Ointment 1 INCH/1 GM Packet ONE (23:33)
[2023-01-21] MEDS ORDERED: Acetaminophen 500 MG TAB ONE (23:33)
[2023-01-22] MEDS ORDERED: Dextrose 50% Abboject 50 ML SYRINGE SLOW IVP PRN (00:49)
[2023-01-22] MEDS ORDERED: Dextrose 5% in Water 1,000 ML IV PRN (00:49)
[2023-01-22] MEDS ORDERED: HumaLOG 300 UNITS/3 ML VIAL SC PRN ×2 (00:50)
[2023-01-22 01:21] LABS: Actual Bicarbonate (HCO3v) 20 mEq/L (22-28); Calcium, Ionized (venous) 1.07 mmol/L (1.16-1.32); Chloride (VBG) 103 mmol/L (98-106); Hemoglobin (Hb) 13.7 g/dL (12.6-17.4); Potassium (VBG) 4.07 mmol/L (3.70-5.30); Sodium 135.6 mmol/L (133-146); pH (venous) 7.41 (7.32-7.43)
[2023-01-22 01:26] LABS: CKMB 2.8 ng/mL (0-6.6)
[2023-01-22 02:21] LABS: Troponin I 0.037 ng/mL (< 0.028)
[2023-01-22 02:48] LABS: ALT (SGPT) 22 U/L (8-55); AST (SGOT) 18 U/L (5-34); Albumin 3.8 g/dL (3.4-4.8); Alkaline Phosphatase 107 U/L (40-110); Anion Gap 15 mmol/L (10-20); BUN (Urea Nitrogen) 21 mg/dL (8.4-25.7); Bilirubin, Total 0.6 mg/dL (0.2-1.2); Calc. Creatinine Clearance 0 mL/min (70-130); Calcium 9.1 mg/dL (7.8-10.44); Carbon Dioxide 21 mmol/L (23-31); Chloride 105 mmol/L (98-107); Estimated GFR 40; Globulin 2.8 g/dL (2.4-3.5); Glucose 148 mg/dL (83-110); Protein, Total 6.6 g/dL (5.8-8.1); Sodium 137 mmol/L (136-145)
[2023-01-22 02:52] LABS: Bilirubin Negative (Negative); Blood, Urine Negative (Negative); Clarity Clear (Clear); Glucose, Urine (Dipstick) Normal (Negative); Ketone, Urine Negative (Negative); Leukocyte Negative Leu/uL (Negative); Nitrite Negative (Negative); Protein, Urine (Dipstick) Negative (Neg-Trace); Specific Gravity, Urine 1.007 (1.002-1.036); Urobilinogen Normal mg/dL (Less than 2)
[2023-01-22 07:51] LABS: #Basophils 0.1 thou/uL (0.0-0.2); #Eosinphils 0.3 thou/uL (0.0-0.7); #Lymphocytes 1.5 thou/uL (1.20-3.40); #Monocytes 1.2 thou/uL (0.11-0.59); #Neutrophils 6.1 thou/uL (1.40-6.50); %Basophils 0.7 % (0.0-1.0); %Eosinophils 3.1 % (0.0-10.0); %Lymphocytes 16.5 % (21.0-51.0); %Monocytes 12.6 % (0.0-10.0); Hemoglobin 13.5 g/dL (14.0-18.0); Mean Corpuscular HGB CONC 31.9 g/dL (32.0-36.0); Mean Corpuscular Hemoglobin 26.9 pg (27.0-31.0); Mean Corpuscular Volume 84.3 fl (78.0-98.0); Mean Platelet Volume 9.1 fL (7.4-10.4); Platelet Count 333 10x3/uL (130-400); RBC Distribution Width 13.3 % (11.5-14.5); Red Blood Cell (RBC) Count 5.02 mill/uL (4.70-6.10); White Blood Cell (WBC) Count 9.1 10x3/uL (4.8-10.8)
[2023-01-22] MEDS ORDERED: Aspirin Chewable 81 MG TAB ONE (07:57)
[2023-01-22] MEDS ORDERED: Furosemide 40 MG/4 ML VIAL ONE (07:57)
[2023-01-22 08:21] LABS: Amphetamine Detected (NotDetected); Barbiturates Screen Not Detected (NotDetected); Benzodiazepine Screen Not Detected (NotDetected); Cocaine Metabolite Screen Not Detected (NotDetected); Methadone Not Detected (NotDetected); Methamphetamine Detected (NotDetected); Opiate Screen Not Detected (NotDetected); Oxycodone Screen Not Detected (NotDetected); Phencyclidine (PCP) Not Detected (NotDetected); THC/Cannabinoid Screen Not Detected (NotDetected); Tricyclic Screen Not Detected (NotDetected)
[2023-01-22] MEDS ORDERED: Furosemide 40 MG/4 ML VIAL SLOW IVP SCH ×2 (09:00→14:00)
[2023-01-22] MEDS ORDERED: Aspirin 81 mg Enteric Coated Tablet PO SCH (09:00)
[2023-01-22] MEDS: Enoxaparin 120 MG/0.8 ML SYRINGE SC SCH ×2 (11:15→20:39)
[2023-01-22 15:06] VITALS: BMI 31.4
[2023-01-22] MEDS: Acetaminophen 325 MG TAB PO PRN ×2 (15:32→22:01)
[2023-01-22] MEDS ORDERED: Gabapentin 100 MG CAP PO SCH (16:15)
[2023-01-22] MEDS ORDERED: Atorvastatin Calcium 40 MG TAB PO SCH (21:00)
[2023-01-23] MEDS ORDERED: Gabapentin 100 MG CAP PO SCH ×2 (03:00→09:00)
[2023-01-23 08:30] LABS: #Basophils 0.1 thou/uL (0.0-0.2); #Eosinphils 0.3 thou/uL (0.0-0.7); #Lymphocytes 1.1 thou/uL (1.20-3.40); #Monocytes 0.5 thou/uL (0.11-0.59); #Neutrophils 5.9 thou/uL (1.40-6.50); %Basophils 0.9 % (0.0-1.0); %Eosinophils 3.6 % (0.0-10.0); %Lymphocytes 13.4 % (21.0-51.0); %Monocytes 6.8 % (0.0-10.0); %Neutrophils 75.2 % (42.0-75.0); Mean Corpuscular HGB CONC 32.4 g/dL (32.0-36.0); Mean Corpuscular Hemoglobin 27.5 pg (27.0-31.0); Mean Platelet Volume 8.9 fL (7.4-10.4); Platelet Count 378 10x3/uL (130-400); RBC Distribution Width 13.4 % (11.5-14.5); Red Blood Cell (RBC) Count 5.08 mill/uL (4.70-6.10); White Blood Cell (WBC) Count 7.9 10x3/uL (4.8-10.8)
[2023-01-23 08:42] VITALS: BP 129/76; TEMP 97.4
[2023-01-23 08:49] LABS: Anion Gap 15 mmol/L (10-20); BUN (Urea Nitrogen) 18 mg/dL (8.4-25.7); Calc. Creatinine Clearance 63 mL/min (70-130); Calcium 9.4 mg/dL (7.8-10.44); Carbon Dioxide 27 mmol/L (23-31); Chloride 98 mmol/L (98-107); Estimated GFR 43; Glucose 194 mg/dL (83-110); Potassium 3.8 mmol/L (3.5-5.1); Sodium 136 mmol/L (136-145)
[2023-01-23] MEDS ORDERED: Furosemide 40 MG TAB PO SCH (09:00)
[2023-01-23] MEDS ORDERED: Empagliflozin 10 MG TAB PO SCH (09:00)
== END 2023-01-23 10:04 | disposition home or self-care (01) ==
LOC: ERS 21:04 → ERHOLD 01-22 00:28 → 2NO 01-22 14:08
PROVIDERS: ADMIT Student in an Organized Health Care Education/Training Program; ATTEND Student in an Organized Health Care Education/Training Program
DX: F15.10 Other stimulant abuse, uncomplicated (principal); I11.0 Hypertensive heart disease with heart failure; I50.23 Acute on chronic systolic (congestive) heart failure; E87.70 Fluid overload, unspecified; I48.91 Unspecified atrial fibrillation; I25.10 Atherosclerotic heart disease of native coronary artery without angina pectoris; G93.40 Encephalopathy, unspecified; E11.9 Type 2 diabetes mellitus without complications; E78.5 Hyperlipidemia, unspecified; J44.9 Chronic obstructive pulmonary disease, unspecified; F17.210 Nicotine dependence, cigarettes, uncomplicated; Z91.148 Patient's other noncompliance with medication regimen for other reason; Z79.02 Long term (current) use of antithrombotics/antiplatelets; Z79.82 Long term (current) use of aspirin; Z79.84 Long term (current) use of oral hypoglycemic drugs; Z79.899 Other long term (current) drug therapy; Z95.1 Presence of aortocoronary bypass graft; Z95.5 Presence of coronary angioplasty implant and graft; Z20.822 Contact with and (suspected) exposure to COVID-19
CPT/HCPCS: 0240U; 71045; 80048; 80053 ×2; 80306; 81003; 82553; 82805; 82962 ×2; 83605; 83690; 83880; 84145; 84484 ×2; 85025 ×3; 85520; 87040; 93005; 94760; 36415; 36416; 96372; 96374; 96376; G0378; J1650; J1940

== ENCOUNTER 2023-02-01 18:29 | Emergency (ER) | payer OTHER ==
[2023-02-01 19:16] LABS: #Eosinphils 0.3 thou/uL (0.0-0.7); #Lymphocytes 1.3 thou/uL (1.20-3.40); #Monocytes 0.7 thou/uL (0.11-0.59); %Basophils 0.3 % (0.0-1.0); %Eosinophils 3.1 % (0.0-10.0); %Lymphocytes 13.6 % (21.0-51.0); Hemoglobin 12.3 g/dL (14.0-18.0); Mean Corpuscular Hemoglobin 28.2 pg (27.0-31.0); Platelet Count 302 10x3/uL (130-400); RBC Distribution Width 13.2 % (11.5-14.5); Red Blood Cell (RBC) Count 4.35 mill/uL (4.70-6.10); White Blood Cell (WBC) Count 9.3 10x3/uL (4.8-10.8)
[2023-02-01 19:37] LABS: ALT (SGPT) 18 U/L (8-55); AST (SGOT) 17 U/L (5-34); Albumin 3.8 g/dL (3.4-4.8); Alkaline Phosphatase 125 U/L (40-110); Anion Gap 15 mmol/L (10-20); BUN (Urea Nitrogen) 18 mg/dL (8.4-25.7); Bilirubin, Total 0.5 mg/dL (0.2-1.2); Calc. Creatinine Clearance 0 mL/min (70-130); Calcium 9.1 mg/dL (7.8-10.44); Carbon Dioxide 21 mmol/L (23-31); Chloride 104 mmol/L (98-107); Estimated GFR 38; Glucose 187 mg/dL (83-110); Lipase 30 U/L (8-78); Potassium 4.1 mmol/L (3.5-5.1); Protein, Total 6.8 g/dL (5.8-8.1); Sodium 136 mmol/L (136-145)
[2023-02-01] MEDS ORDERED: Morphine 4 MG/ML VIAL ONE (20:02)
== END 2023-02-01 22:35 | disposition home or self-care (01) ==
LOC: ERS 18:29
DX: R59.0 Localized enlarged lymph nodes (principal); R79.89 Other specified abnormal findings of blood chemistry; R10.9 Unspecified abdominal pain; I11.0 Hypertensive heart disease with heart failure; I50.9 Heart failure, unspecified; E11.9 Type 2 diabetes mellitus without complications; J44.9 Chronic obstructive pulmonary disease, unspecified; F17.210 Nicotine dependence, cigarettes, uncomplicated; Z79.84 Long term (current) use of oral hypoglycemic drugs; Z79.82 Long term (current) use of aspirin; Z79.899 Other long term (current) drug therapy; Z89.429 Acquired absence of other toe(s), unspecified side; Z89.111 Acquired absence of right hand
CPT/HCPCS: 36415; 74177; 80053; 83605; 83690; 85025; 96374; J2270; Q9967

== ENCOUNTER 2023-02-07 01:42 | Inpatient (IN) | payer OTHER, MEDICAID ==
[2023-02-07 02:11] LABS: #Basophils 0.1 thou/uL (0.0-0.2); #Eosinphils 0.3 thou/uL (0.0-0.7); #Lymphocytes 1.3 thou/uL (1.20-3.40); #Monocytes 0.8 thou/uL (0.11-0.59); #Neutrophils 7.5 thou/uL (1.40-6.50); %Basophils 0.5 % (0.0-1.0); %Lymphocytes 13.2 % (21.0-51.0); %Monocytes 7.8 % (0.0-10.0); %Neutrophils 75.5 % (42.0-75.0); Hemoglobin 12.3 g/dL (14.0-18.0); Mean Corpuscular HGB CONC 32.6 g/dL (32.0-36.0); Mean Corpuscular Volume 82.8 fl (78.0-98.0); Mean Platelet Volume 8.8 fL (7.4-10.4); Platelet Count 321 10x3/uL (130-400); RBC Distribution Width 13.5 % (11.5-14.5); Red Blood Cell (RBC) Count 4.57 mill/uL (4.70-6.10)
[2023-02-07 02:19] LABS: INR-International Normal Ratio 1.3; Prothrombin Time 16.4 sec (12.0-14.7)
[2023-02-07 02:33] LABS: ALT (SGPT) 15 U/L (8-55); AST (SGOT) 16 U/L (5-34); Albumin 3.8 g/dL (3.4-4.8); Alkaline Phosphatase 120 U/L (40-110); Anion Gap 15 mmol/L (10-20); BUN (Urea Nitrogen) 19 mg/dL (8.4-25.7); Bilirubin, Total 0.7 mg/dL (0.2-1.2); CK (CPK) 126 U/L (30-200); Calc. Creatinine Clearance 0 mL/min (70-130); Calcium 8.9 mg/dL (7.8-10.44); Carbon Dioxide 21 mmol/L (23-31); Chloride 104 mmol/L (98-107); Estimated GFR 34; Globulin 2.8 g/dL (2.4-3.5); Glucose 151 mg/dL (83-110); Potassium 4.2 mmol/L (3.5-5.1); Protein, Total 6.6 g/dL (5.8-8.1); Sodium 136 mmol/L (136-145)
[2023-02-07 02:53] LABS: CKMB 3.3 ng/mL (0-6.6)
[2023-02-07] MEDS ORDERED: Morphine 4 MG/ML VIAL ONE (03:10)
[2023-02-07] MEDS ORDERED: Aspirin Chewable 81 MG TAB ONE (03:15)
[2023-02-07] MEDS ORDERED: Cefepime 2 GM VIAL ONE (03:15)
[2023-02-07] MEDS ORDERED: Vancomycin HCl 2.5 GM in Sodium Chloride 0.9% 500 ML IVPB SCH (03:30)
[2023-02-07 03:36] LABS: SARS-CoV-2 NAA Rapid Test Not Detected (NotDetected)
[2023-02-07] MEDS ORDERED: Dextrose 5% in Water 1,000 ML IV PRN (04:29)
[2023-02-07] MEDS ORDERED: Bisacodyl 10 MG SUPP PR PRN (04:29)
[2023-02-07] MEDS ORDERED: Ondansetron PF 4 MG/2 ML Vial IVP PRN (04:29)
[2023-02-07] MEDS ORDERED: Ondansetron ODT 4 MG TAB PO PRN (04:29)
[2023-02-07] MEDS ORDERED: Bisacodyl 5 MG TAB PO PRN (04:29)
[2023-02-07] MEDS ORDERED: Dextrose 50% Abboject 50 ML SYRINGE SLOW IVP PRN (04:29)
[2023-02-07] MEDS ORDERED: Senokot S 8.6-50 MG TAB PO PRN (04:29)
[2023-02-07] MEDS ORDERED: Insulin Regular 300 UNITS/3 ML VIAL SC PRN ×2 (04:31)
[2023-02-07] MEDS ORDERED: HumaLOG 300 UNITS/3 ML VIAL SC PRN ×2 (04:31)
[2023-02-07] MEDS ORDERED: Furosemide 40 MG/4 ML VIAL SLOW IVP SCH ×5 (04:45→16:00)
[2023-02-07] MEDS ORDERED: Ipratropium/Albuterol 3 ML NEB NEB PRN ×2 (05:17→09:46)
[2023-02-07 05:38] LABS: Bacteria/HPF None Seen HPF (None Seen); Bilirubin Negative (Negative); Blood, Urine Negative (Negative); Clarity Clear (Clear); Glucose, Urine (Dipstick) Normal (Negative); Ketone, Urine Negative (Negative); Leukocyte Negative Leu/uL (Negative); Nitrite Negative (Negative); Protein, Urine (Dipstick) 50 mg/dL (Neg-Trace); RBC/HPF 0-3 HPF (0-3); Specific Gravity, Urine 1.028 (1.002-1.036); Squamous Epithelial None Seen HPF (0-3); Urobilinogen Normal mg/dL (Less than 2); pH, Urine 5.5 (5.0-9.0)
[2023-02-07 06:29] VITALS: BMI 33.3
[2023-02-07 06:39] LABS: Troponin I 0.035 ng/mL (< 0.028)
[2023-02-07] MEDS: Mometasone 200 MCG/Formoterol 5 MCG 120 PUFF INHALER INH SCH ×2 (07:31→19:20)
[2023-02-07] MEDS: Heparin 5,000 UNITS/ML VIAL SC SCH ×3 (08:48→21:10)
[2023-02-07] MEDS: Aspirin 81 mg Enteric Coated Tablet PO SCH (08:48)
[2023-02-07] MEDS: Acetaminophen 500 MG TAB PO PRN ×3 (08:49→21:11)
[2023-02-07 09:57] LABS: Troponin I 0.043 ng/mL (< 0.028)
[2023-02-07] MEDS ORDERED: Ipratropium/Albuterol 3 ML NEB NEB SCH (10:30)
[2023-02-07 11:42] LABS: Actual Bicarbonate (HCO3a) 20.9 mEq/L (22-28); Base Excess (BEa) -2.4 mEq/L (-2.0 to +3.0); CO2 Tension 31.5 mmHg (35.0-45.0); Calcium, Ionized (arterial) 1.15 mmol/L (1.12-1.30); Carboxyhemoglobin (COHb) 0.8 gm% (0.0-3.0); Hematocrit-ABG 37 % (42.0-52.0); Hemoglobin (Hb) 12.5 g/dL (14.0-18.0); O2 Tension (PaO2), arterial 82.3 mmHg (> 70.0); Potassium - ABG Lab 4.21 mmol/L (3.70-5.30)
[2023-02-07 11:47] LABS: ALV-art Gradient 28.055 mmHg (0-20); Puncture Site RRA
[2023-02-07 12:30] LABS: #Basophils 0.1 thou/uL (0.0-0.2); #Eosinphils 0.3 thou/uL (0.0-0.7); #Lymphocytes 1.3 thou/uL (1.20-3.40); #Monocytes 0.6 thou/uL (0.11-0.59); #Neutrophils 5.3 thou/uL (1.40-6.50); %Basophils 0.9 % (0.0-1.0); %Eosinophils 4.5 % (0.0-10.0); %Lymphocytes 17.1 % (21.0-51.0); %Neutrophils 69.5 % (42.0-75.0); Hemoglobin 12.4 g/dL (14.0-18.0); Mean Corpuscular Hemoglobin 25.7 pg (27.0-31.0); Mean Corpuscular Volume 82.9 fl (78.0-98.0); Mean Platelet Volume 8.9 fL (7.4-10.4); Platelet Count 313 10x3/uL (130-400); RBC Distribution Width 13.6 % (11.5-14.5); Red Blood Cell (RBC) Count 4.81 mill/uL (4.70-6.10); White Blood Cell (WBC) Count 7.6 10x3/uL (4.8-10.8)
[2023-02-07 12:45] LABS: Lactic Acid 1.8 mmol/L (0.5-2.2)
[2023-02-07 12:50] LABS: ALT (SGPT) 17 U/L (8-55); AST (SGOT) 18 U/L (5-34); Albumin 3.8 g/dL (3.4-4.8); Alkaline Phosphatase 124 U/L (40-110); Anion Gap 15 mmol/L (10-20); BUN (Urea Nitrogen) 20 mg/dL (8.4-25.7); Bilirubin, Total 0.9 mg/dL (0.2-1.2); Calc. Creatinine Clearance 58 mL/min (70-130); Calcium 8.9 mg/dL (7.8-10.44); Carbon Dioxide 22 mmol/L (23-31); Chloride 104 mmol/L (98-107); Estimated GFR 36; Globulin 2.6 g/dL (2.4-3.5); Glucose 148 mg/dL (83-110); Potassium 4.7 mmol/L (3.5-5.1); Protein, Total 6.4 g/dL (5.8-8.1); Sodium 136 mmol/L (136-145)
[2023-02-07 12:54] LABS: Troponin I 0.035 ng/mL (< 0.028)
[2023-02-07 13:26] LABS: Amphetamine Detected (NotDetected); Barbiturates Screen Not Detected (NotDetected); Benzodiazepine Screen Not Detected (NotDetected); Cocaine Metabolite Screen Not Detected (NotDetected); Methadone Not Detected (NotDetected); Methamphetamine Detected (NotDetected); Opiate Screen Detected (NotDetected); Oxycodone Screen Not Detected (NotDetected); Phencyclidine (PCP) Not Detected (NotDetected); THC/Cannabinoid Screen Not Detected (NotDetected); Tricyclic Screen Not Detected (NotDetected)
[2023-02-07] MEDS ORDERED: cefTRIAXone Sodium 2,000 MG in Syringe 0 ML IVPB SCH (13:30)
[2023-02-07] MEDS: cefTRIAXone\\ROCEPHIN 2 GM in Sodium Chloride 0.9% 100 ML IVPB SCH (14:38)
[2023-02-07] MEDS: metroNIDAZOLE 500 MG in Premix Bag 1 BAG IVPB SCH ×2 (14:38→21:11)
[2023-02-07] MEDS ORDERED: Cefepime 1 GM in Sodium Chloride 0.9% 100 ML IVPB SCH (15:00)
[2023-02-07 16:40] LABS: Bacteria/HPF None Seen HPF (None Seen); Bilirubin Negative (Negative); Blood, Urine Negative (Negative); CAUTI Indications for Culture Alt mental st,lethar; Clarity Clear (Clear); Glucose, Urine (Dipstick) Normal (Negative); Ketone, Urine Negative (Negative); Leukocyte Negative Leu/uL (Negative); Nitrite Negative (Negative); Protein, Urine (Dipstick) 20 mg/dL (Neg-Trace); RBC/HPF 0-3 HPF (0-3); Specific Gravity, Urine 1.011 (1.002-1.036); Squamous Epithelial 0-3 HPF (0-3); Urobilinogen Normal mg/dL (Less than 2); WBC/HPF 0-3 HPF (0-3)
[2023-02-07 16:44] LABS: Amphetamine Detected (NotDetected); Barbiturates Screen Not Detected (NotDetected); Benzodiazepine Screen Not Detected (NotDetected); Cocaine Metabolite Screen Not Detected (NotDetected); Methadone Not Detected (NotDetected); Methamphetamine Detected (NotDetected); Opiate Screen Detected (NotDetected); Oxycodone Screen Not Detected (NotDetected); Phencyclidine (PCP) Not Detected (NotDetected); THC/Cannabinoid Screen Not Detected (NotDetected); Tricyclic Screen Not Detected (NotDetected)
[2023-02-07 16:49] LABS: Urine Culture Reflex No No
[2023-02-07] MEDS ORDERED: Atorvastatin Calcium 40 MG TAB PO SCH (21:00)
[2023-02-07] MEDS: hydrOXYzine 25 MG TAB PO PRN (21:11)
[2023-02-08] MEDS ORDERED: VANCOMYCIN 1.75 GM/500 ML BAG 1.75 GM in Premix Bag 1 BAG IVPB SCH (04:00)
[2023-02-08] MEDS: metroNIDAZOLE 500 MG in Premix Bag 1 BAG IVPB SCH ×2 (06:45→14:10)
[2023-02-08] MEDS: Acetaminophen 500 MG TAB PO PRN (06:52)
[2023-02-08] MEDS: Mometasone 200 MCG/Formoterol 5 MCG 120 PUFF INHALER INH SCH (07:49)
[2023-02-08 07:56] LABS: #Basophils 0.1 thou/uL (0.0-0.2); #Eosinphils 0.3 thou/uL (0.0-0.7); #Lymphocytes 1.1 thou/uL (1.20-3.40); #Monocytes 0.7 thou/uL (0.11-0.59); #Neutrophils 5.9 thou/uL (1.40-6.50); %Basophils 0.8 % (0.0-1.0); %Eosinophils 4.1 % (0.0-10.0); %Monocytes 8.3 % (0.0-10.0); %Neutrophils 72.8 % (42.0-75.0); Hemoglobin 12.8 g/dL (14.0-18.0); Mean Corpuscular HGB CONC 31.2 g/dL (32.0-36.0); Mean Corpuscular Volume 83.6 fl (78.0-98.0); Mean Platelet Volume 8.9 fL (7.4-10.4); Platelet Count 319 10x3/uL (130-400); RBC Distribution Width 13.4 % (11.5-14.5); Red Blood Cell (RBC) Count 4.93 mill/uL (4.70-6.10); White Blood Cell (WBC) Count 8.1 10x3/uL (4.8-10.8)
[2023-02-08 08:16] LABS: Anion Gap 14 mmol/L (10-20); BUN (Urea Nitrogen) 23 mg/dL (8.4-25.7); Calc. Creatinine Clearance 60 mL/min (70-130); Calcium 8.8 mg/dL (7.8-10.44); Carbon Dioxide 23 mmol/L (23-31); Chloride 103 mmol/L (98-107); Estimated GFR 37; Glucose 131 mg/dL (83-110); Potassium 4.3 mmol/L (3.5-5.1); Sodium 136 mmol/L (136-145)
[2023-02-08] MEDS ORDERED: Furosemide 40 MG/4 ML VIAL SLOW IVP SCH (09:15)
[2023-02-08] MEDS: Heparin 5,000 UNITS/ML VIAL SC SCH ×2 (09:16→14:10)
[2023-02-08] MEDS: Aspirin 81 mg Enteric Coated Tablet PO SCH (09:17)
[2023-02-08] MEDS: hydrOXYzine 25 MG TAB PO PRN (11:45)
[2023-02-08] MEDS: cefTRIAXone\\ROCEPHIN 2 GM in Sodium Chloride 0.9% 100 ML IVPB SCH (14:09)
[2023-02-08 16:44] VITALS: BP 143/81; TEMP 98.6
== END 2023-02-08 18:00 | disposition left against medical advice (07) | DRG 871 ==
LOC: ERS 01:42 → 2NO 04:27
PROVIDERS: ADMIT Emergency Medicine; ATTEND Emergency Medicine
PROC: 3E03329 Introduction of Other Anti-infective into Peripheral Vein, Percutaneous Approach (ICD-10-PCS; principal; 2023-02-07)
PROC: 4A033R1 Measurement of Arterial Saturation, Peripheral, Percutaneous Approach (ICD-10-PCS; 2023-02-07)
DX: A41.9 Sepsis, unspecified organism (principal); I50.23 Acute on chronic systolic (congestive) heart failure; J96.01 Acute respiratory failure with hypoxia; L03.116 Cellulitis of left lower limb; I13.0 Hypertensive heart and chronic kidney disease with heart failure and stage 1 through stage 4 chronic kidney disease, or unspecified chronic kidney disease; M86.172 Other acute osteomyelitis, left ankle and foot; Z66 Do not resuscitate; Z20.822 Contact with and (suspected) exposure to COVID-19; I48.91 Unspecified atrial fibrillation; E11.22 Type 2 diabetes mellitus with diabetic chronic kidney disease; J44.9 Chronic obstructive pulmonary disease, unspecified; F15.10 Other stimulant abuse, uncomplicated; F17.210 Nicotine dependence, cigarettes, uncomplicated; N18.9 Chronic kidney disease, unspecified; I25.10 Atherosclerotic heart disease of native coronary artery without angina pectoris; Z53.29 Procedure and treatment not carried out because of patient's decision for other reasons; Z95.1 Presence of aortocoronary bypass graft; Z79.84 Long term (current) use of oral hypoglycemic drugs; Z79.51 Long term (current) use of inhaled steroids; Z79.899 Other long term (current) drug therapy; Z91.148 Patient's other noncompliance with medication regimen for other reason
CPT/HCPCS: 36415; 36416; 36600; 71045; 71275; 80048; 80053; 80306; 81003; 81015; 82140; 82550; 82553; 82805; 83605; 83880; 84145; 84484; 85025; 85610; 85652; 86140; 87040; 87086; 93005; 93010; 96365; 96367; 96375; 97139; 99214; G0463; J0692; J0696; J1644; J1940; J2270; J3370; J3490; J7030; Q9967

== ENCOUNTER 2023-02-13 21:00 | Inpatient (IN) | payer OTHER, MEDICAID ==
[2023-02-13] MEDS ORDERED: Ondansetron PF 4 MG/2 ML Vial ONE (21:26)
[2023-02-13] MEDS ORDERED: methylPREDNISolone Sod Succ/PF 125 MG/2 ML VIAL ONE (21:26)
[2023-02-13] MEDS ORDERED: Ipratropium Bromide 2.5 ml Neb ONE (21:29)
[2023-02-13] MEDS ORDERED: Albuterol 2.5 MG/0.5 ML NEB ONE (21:29)
[2023-02-13 22:22] LABS: #Basophils 0.1 thou/uL (0.0-0.2); #Eosinphils 0.3 thou/uL (0.0-0.7); #Lymphocytes 1.6 thou/uL (1.20-3.40); #Monocytes 0.8 thou/uL (0.11-0.59); #Neutrophils 5.4 thou/uL (1.40-6.50); %Basophils 0.7 % (0.0-1.0); %Eosinophils 3.4 % (0.0-10.0); %Lymphocytes 19.9 % (21.0-51.0); %Monocytes 9.3 % (0.0-10.0); %Neutrophils 66.7 % (42.0-75.0); Hemoglobin 12.3 g/dL (14.0-18.0); Mean Corpuscular HGB CONC 32.5 g/dL (32.0-36.0); Mean Corpuscular Hemoglobin 26.8 pg (27.0-31.0); Mean Corpuscular Volume 82.4 fl (78.0-98.0); Mean Platelet Volume 8.8 fL (7.4-10.4); Platelet Count 329 10x3/uL (130-400); RBC Distribution Width 13.8 % (11.5-14.5)
[2023-02-13 22:28] LABS: INR-International Normal Ratio 1.2; PTT 32.1 sec (22.9-36.1); Prothrombin Time 16.2 sec (12.0-14.7)
[2023-02-13] MEDS ORDERED: Acetaminophen 500 MG TAB ONE (22:34)
[2023-02-13 22:35] LABS: ALT (SGPT) 22 U/L (8-55); AST (SGOT) 26 U/L (5-34); Alkaline Phosphatase 132 U/L (40-110); Anion Gap 17 mmol/L (10-20); BUN (Urea Nitrogen) 32 mg/dL (8.4-25.7); Bilirubin, Total 0.8 mg/dL (0.2-1.2); Calc. Creatinine Clearance 0 mL/min (70-130); Calcium 9.3 mg/dL (7.8-10.44); Carbon Dioxide 23 mmol/L (23-31); Chloride 103 mmol/L (98-107); Estimated GFR 25; Globulin 3.2 g/dL (2.4-3.5); Glucose 147 mg/dL (83-110); Potassium 4.2 mmol/L (3.5-5.1); Protein, Total 7.2 g/dL (5.8-8.1); Sodium 139 mmol/L (136-145)
[2023-02-13 23:20] LABS: Bacteria/HPF None Seen HPF (None Seen); Bilirubin Negative (Negative); Blood, Urine Negative (Negative); Clarity Clear (Clear); Glucose, Urine (Dipstick) Normal (Negative); Ketone, Urine Negative (Negative); Leukocyte Negative Leu/uL (Negative); Nitrite Negative (Negative); Protein, Urine (Dipstick) 30 mg/dL (Neg-Trace); RBC/HPF 0-3 HPF (0-3); Specific Gravity, Urine 1.023 (1.002-1.036); Squamous Epithelial None Seen HPF (0-3); Urobilinogen Normal mg/dL (Less than 2); WBC/HPF 0-3 HPF (0-3); pH, Urine 5.5 (5.0-9.0)
[2023-02-13] MEDS ORDERED: Nitroglycerin 2% Ointment 1 INCH/1 GM Packet ONE (23:37)
[2023-02-13] MEDS ORDERED: Furosemide 40 MG/4 ML VIAL ONE (23:37)
[2023-02-13] MEDS ORDERED: Aspirin Chewable 81 MG TAB ONE (23:37)
[2023-02-13] MEDS ORDERED: cefTRIAXone (ROCEPHIN) 2 GM VIAL ONE (23:37)
[2023-02-14 02:07] VITALS: BMI 34.0
[2023-02-14] MEDS ORDERED: Albuterol 200 PUFF (6.7GM INHALER) INH PRN (03:25)
[2023-02-14] MEDS ORDERED: hydrOXYzine 25 MG TAB PO PRN (03:25)
[2023-02-14] MEDS ORDERED: Dextrose 5% in Water 1,000 ML IV PRN (03:36)
[2023-02-14] MEDS ORDERED: Dextrose 50% Abboject 50 ML SYRINGE SLOW IVP PRN (03:36)
[2023-02-14] MEDS ORDERED: HumaLOG 300 UNITS/3 ML VIAL SC PRN ×2 (03:36)
[2023-02-14] MEDS ORDERED: cefTRIAXone (ROCEPHIN) 1 GM VIAL IM SCH ×2 (04:00→09:30)
[2023-02-14] MEDS ORDERED: traMADol HCl 50 MG TAB PO PRN (04:01)
[2023-02-14] MEDS: Furosemide 20 MG/2 ML VIAL SLOW IVP SCH ×2 (06:16→14:16)
[2023-02-14] MEDS ORDERED: Mometasone 100 MCG/Formoterol 5 MCG 120 PUFF INHALER INH SCH (06:30)
[2023-02-14] MEDS: metFORMIN 500 MG TAB PO SCH ×2 (08:26→16:12)
[2023-02-14] MEDS ORDERED: Doxycycline 100 MG CAP PO SCH (09:00)
[2023-02-14] MEDS ORDERED: Aspirin 81 mg Enteric Coated Tablet PO SCH (09:00)
[2023-02-14] MEDS ORDERED: Atorvastatin Calcium 40 MG TAB PO SCH (09:00)
[2023-02-14] MEDS ORDERED: Cefepime 2 GM in Sodium Chloride 0.9% 100 ML IVPB SCH (09:00)
[2023-02-14] MEDS ORDERED: cefTRIAXone\\ROCEPHIN 1 GM in Sodium Chloride 0.9% 100 ML IVPB SCH (10:00)
[2023-02-14 10:38] LABS: #Lymphocytes 0.5 thou/uL (1.20-3.40); #Monocytes 0.1 thou/uL (0.11-0.59); #Neutrophils 6.1 thou/uL (1.40-6.50); %Eosinophils 0.1 % (0.0-10.0); %Lymphocytes 7.4 % (21.0-51.0); %Monocytes 1.1 % (0.0-10.0); %Neutrophils 91.5 % (42.0-75.0); Hemoglobin 12.9 g/dL (14.0-18.0); Mean Corpuscular HGB CONC 32.7 g/dL (32.0-36.0); Mean Corpuscular Volume 82.5 fl (78.0-98.0); Mean Platelet Volume 8.9 fL (7.4-10.4); Platelet Count 301 10x3/uL (130-400); RBC Distribution Width 13.8 % (11.5-14.5); Red Blood Cell (RBC) Count 4.78 mill/uL (4.70-6.10); White Blood Cell (WBC) Count 6.6 10x3/uL (4.8-10.8)
[2023-02-14 11:01] LABS: Troponin I 0.033 ng/mL (< 0.028)
[2023-02-14 11:06] LABS: Anion Gap 17 mmol/L (10-20); BUN (Urea Nitrogen) 35 mg/dL (8.4-25.7); Calc. Creatinine Clearance 52 mL/min (70-130); Calcium 9.2 mg/dL (7.8-10.44); Carbon Dioxide 23 mmol/L (23-31); Chloride 101 mmol/L (98-107); Estimated GFR 31; Glucose 249 mg/dL (83-110); Potassium 4.4 mmol/L (3.5-5.1); Sodium 137 mmol/L (136-145)
[2023-02-14] MEDS ORDERED: VANCOMYCIN 1.75 GM/500 ML BAG 1.75 GM in Premix Bag 1 BAG IVPB SCH (12:00)
[2023-02-14 15:47] LABS: Troponin I 0.027 ng/mL (< 0.028)
[2023-02-14 16:43] VITALS: BP 134/83; TEMP 97.6
== END 2023-02-14 16:40 | disposition left against medical advice (07) | DRG 872 ==
LOC: ERS 21:00 → 2SW 23:49 → OBSVTOIN 02-14 09:46
PROVIDERS: ADMIT Family Medicine; ATTEND Family Medicine
DX: A41.9 Sepsis, unspecified organism (principal); I13.0 Hypertensive heart and chronic kidney disease with heart failure and stage 1 through stage 4 chronic kidney disease, or unspecified chronic kidney disease; L03.116 Cellulitis of left lower limb; N17.9 Acute kidney failure, unspecified; M86.9 Osteomyelitis, unspecified; I48.91 Unspecified atrial fibrillation; E11.22 Type 2 diabetes mellitus with diabetic chronic kidney disease; J44.9 Chronic obstructive pulmonary disease, unspecified; I50.9 Heart failure, unspecified; N18.9 Chronic kidney disease, unspecified; F17.210 Nicotine dependence, cigarettes, uncomplicated; I87.8 Other specified disorders of veins; F15.10 Other stimulant abuse, uncomplicated; Z66 Do not resuscitate; E11.51 Type 2 diabetes mellitus with diabetic peripheral angiopathy without gangrene; E11.69 Type 2 diabetes mellitus with other specified complication; Z79.82 Long term (current) use of aspirin; Z79.84 Long term (current) use of oral hypoglycemic drugs; Z79.51 Long term (current) use of inhaled steroids; Z79.899 Other long term (current) drug therapy; Z95.1 Presence of aortocoronary bypass graft; Z98.890 Other specified postprocedural states
CPT/HCPCS: 36415; 36416; 71045; 80048; 80053; 81003; 81015; 83605; 83880; 84484; 85025; 85610; 85730; 87040; 93005; 94640; 94760; 96365; 96372; 96375; 96376; G0378; J0692; J0696; J1650; J1940; J2405; J2930; J3370; J3490; J7611

== ENCOUNTER 2023-02-20 14:55 | Emergency (ER) | payer OTHER ==
[2023-02-20 15:36] LABS: #Basophils 0.1 thou/uL (0.0-0.2); #Eosinphils 0.3 thou/uL (0.0-0.7); #Monocytes 0.6 thou/uL (0.11-0.59); #Neutrophils 5.4 thou/uL (1.40-6.50); %Basophils 0.9 % (0.0-1.0); %Eosinophils 3.6 % (0.0-10.0); %Lymphocytes 18.2 % (21.0-51.0); %Monocytes 7.6 % (0.0-10.0); %Neutrophils 69.3 % (42.0-75.0); Hemoglobin 11.9 g/dL (14.0-18.0); Mean Corpuscular HGB CONC 31.5 g/dL (32.0-36.0); Mean Corpuscular Hemoglobin 24.8 pg (27.0-31.0); Mean Corpuscular Volume 78.8 fl (78.0-98.0); Mean Platelet Volume 10.9 fL (7.4-10.4); Platelet Count 349 10x3/uL (130-400); White Blood Cell (WBC) Count 7.8 10x3/uL (4.8-10.8)
[2023-02-20 15:57] LABS: ALT (SGPT) 26 U/L (8-55); AST (SGOT) 22 U/L (5-34); Albumin 3.8 g/dL (3.4-4.8); Alkaline Phosphatase 120 U/L (40-110); Anion Gap 12 mmol/L (10-20); BUN (Urea Nitrogen) 35 mg/dL (8.4-25.7); Bilirubin, Total 0.9 mg/dL (0.2-1.2); Calc. Creatinine Clearance 0 mL/min (70-130); Calcium 9.1 mg/dL (7.8-10.44); Carbon Dioxide 26 mmol/L (23-31); Chloride 104 mmol/L (98-107); Estimated GFR 37; Globulin 2.7 g/dL (2.4-3.5); Glucose 154 mg/dL (83-110); Potassium 4.2 mmol/L (3.5-5.1); Protein, Total 6.5 g/dL (5.8-8.1); Sodium 138 mmol/L (136-145)
[2023-02-20] MEDS ORDERED: Furosemide 40 MG/4 ML VIAL ONE (16:03)
[2023-02-20 16:26] LABS: Magnesium 1.8 mg/dL (1.6-2.6)
[2023-02-20 19:07] LABS: Troponin I Less than 0.010 ng/mL (< 0.028)
[2023-02-20] MEDS ORDERED: Dextrose 5% in Water 1,000 ML IV PRN (19:07)
[2023-02-20] MEDS ORDERED: Dextrose 50% Abboject 50 ML SYRINGE SLOW IVP PRN (19:07)
[2023-02-20] MEDS ORDERED: Ondansetron PF 4 MG/2 ML Vial IVP PRN (19:07)
[2023-02-20] MEDS ORDERED: Ondansetron ODT 4 MG TAB PO PRN (19:07)
[2023-02-20] MEDS ORDERED: Acetaminophen 325 MG TAB PO PRN (19:07)
[2023-02-20] MEDS ORDERED: HumaLOG 300 UNITS/3 ML VIAL SC PRN ×2 (19:07)
[2023-02-20] MEDS ORDERED: Vancomycin 1.5 GRAM/300 ML BAG 1.5 GM in Premix Bag 1 BAG IVPB SCH (19:45)
[2023-02-20] MEDS ORDERED: Furosemide 20 MG/2 ML VIAL SLOW IVP SCH (22:00)
== END 2023-02-20 19:10 | disposition left against medical advice (07) ==
LOC: ERS 14:55
DX: Z53.29 Procedure and treatment not carried out because of patient's decision for other reasons (principal)
CPT/HCPCS: 36415; 71045; 80053; 83605; 83735; 83880; 84443; 84484; 85025; 85379; 85652; 86140; 87040; 93005; 94760; 96374; J1940

== ENCOUNTER 2023-02-23 22:40 | Emergency (ER) | payer OTHER, MEDICAID | END 2023-02-23 23:25 | disposition left against medical advice (07) | LOC: ERS 22:40 | DX: Z53.21 Procedure and treatment not carried out due to patient leaving prior to being seen by health care provider (principal) | CPT/HCPCS: 93005; 94760 ==

== ENCOUNTER 2023-03-22 09:30 | Inpatient (IN) | payer OTHER, MEDICAID ==
[2023-03-22 10:21] LABS: #Basophils 0.1 thou/uL (0.0-0.2); #Eosinphils 0.3 thou/uL (0.0-0.7); #Monocytes 1.1 thou/uL (0.11-0.59); #Neutrophils 5.7 thou/uL (1.40-6.50); %Eosinophils 3.2 % (0.0-10.0); %Lymphocytes 14.2 % (21.0-51.0); %Monocytes 13.3 % (0.0-10.0); %Neutrophils 68.1 % (42.0-75.0); Hemoglobin 11.3 g/dL (14.0-18.0); Mean Corpuscular HGB CONC 32.2 g/dL (32.0-36.0); Mean Corpuscular Hemoglobin 24.8 pg (27.0-31.0); Mean Corpuscular Volume 77.1 fl (78.0-98.0); Mean Platelet Volume 11.2 fL (7.4-10.4); Platelet Count 352 10x3/uL (130-400); RBC Distribution Width 16.9 % (11.5-14.5); Red Blood Cell (RBC) Count 4.55 mill/uL (4.70-6.10); White Blood Cell (WBC) Count 8.4 10x3/uL (4.8-10.8)
[2023-03-22] MEDS ORDERED: Cefepime 2 GM VIAL ONE (10:39)
[2023-03-22] MEDS ORDERED: HYDROcodone/Acetaminophen 10/325 mg Tablet ONE (10:39)
[2023-03-22 10:47] LABS: ALT (SGPT) 27 U/L (8-55); AST (SGOT) 26 U/L (5-34); Albumin 3.9 g/dL (3.4-4.8); Alkaline Phosphatase 142 U/L (40-110); Anion Gap 16 mmol/L (10-20); BUN (Urea Nitrogen) 44 mg/dL (8.4-25.7); Bilirubin, Total 0.9 mg/dL (0.2-1.2); Calc. Creatinine Clearance 0 mL/min (70-130); Calcium 9.7 mg/dL (7.8-10.44); Carbon Dioxide 24 mmol/L (23-31); Chloride 98 mmol/L (98-107); Estimated GFR 32; Globulin 3.1 g/dL (2.4-3.5); Glucose 149 mg/dL (83-110); Potassium 4.5 mmol/L (3.5-5.1); Sodium 133 mmol/L (136-145)
[2023-03-22 10:51] LABS: Bacteria/HPF None Seen HPF (None Seen); Bilirubin Negative (Negative); Blood, Urine Negative (Negative); CAUTI Indications for Culture Alt mental st,lethar; Clarity Clear (Clear); Glucose, Urine (Dipstick) Normal (Negative); Ketone, Urine Negative (Negative); Leukocyte Negative Leu/uL (Negative); Nitrite Negative (Negative); Protein, Urine (Dipstick) 30 mg/dL (Neg-Trace); RBC/HPF 0-3 HPF (0-3); Specific Gravity, Urine 1.022 (1.002-1.036); Squamous Epithelial None Seen HPF (0-3); Urobilinogen Normal mg/dL (Less than 2); WBC/HPF 0-3 HPF (0-3)
[2023-03-22 10:53] LABS: Urine Culture Reflex No No
[2023-03-22] MEDS ORDERED: Piperacillin/Tazobactam 3.375 GM VIAL ONE (11:21)
[2023-03-22] MEDS ORDERED: hydrOXYzine 25 MG TAB ONE (11:36)
[2023-03-22] MEDS ORDERED: Glucagon 1 MG/ML KIT IM PRN (12:10)
[2023-03-22] MEDS ORDERED: Dextrose 50% Abboject 50 ML SYRINGE SLOW IVP PRN (12:10)
[2023-03-22] MEDS ORDERED: Dextrose 5% in Water 1,000 ML IV PRN (12:10)
[2023-03-22] MEDS ORDERED: HumaLOG 300 UNITS/3 ML VIAL SC PRN ×2 (12:15)
[2023-03-22] MEDS ORDERED: Albuterol 200 PUFF (6.7GM INHALER) INH PRN (12:29)
[2023-03-22 12:57] LABS: Amphetamine Detected (NotDetected); Barbiturates Screen Not Detected (NotDetected); Benzodiazepine Screen Not Detected (NotDetected); Cocaine Metabolite Screen Not Detected (NotDetected); Methadone Not Detected (NotDetected); Methamphetamine Detected (NotDetected); Opiate Screen Detected (NotDetected); Oxycodone Screen Not Detected (NotDetected); Phencyclidine (PCP) Not Detected (NotDetected); THC/Cannabinoid Screen Not Detected (NotDetected); Tricyclic Screen Not Detected (NotDetected)
[2023-03-22] MEDS ORDERED: Furosemide 40 MG/4 ML VIAL SLOW IVP SCH (14:00)
[2023-03-22] MEDS ORDERED: Acetaminophen 325 MG TAB PO PRN (14:07)
[2023-03-22] MEDS: hydrOXYzine 25 MG TAB PO SCH ×3 (14:18→22:23)
[2023-03-22] MEDS ORDERED: Piperacillin/Tazobactam 3.375 GM in Sodium Chloride 0.9% 100 ML IVPB SCH (16:00)
[2023-03-22] MEDS: Piperacillin/Tazobactam 3.375 GM in Sodium Chloride 0.9% 100 ML IVPB SCH (18:25)
[2023-03-22] MEDS ORDERED: VANCOMYCIN 2 GRAM/500 ML BAG 2 GM in Premix Bag 1 BAG IVPB SCH (18:30)
[2023-03-22] MEDS: Mometasone 200 MCG/Formoterol 5 MCG 120 PUFF INHALER INH SCH (18:32)
[2023-03-22] MEDS ORDERED: VANCOMYCIN HCL IVPB SCH (21:00)
[2023-03-22] MEDS ORDERED: SODIUM CHLORIDE 0.9% IVPB SCH (21:00)
[2023-03-22] MEDS: Atorvastatin Calcium 40 MG TAB PO SCH ×2 (21:35→22:18)
[2023-03-22] MEDS: Senokot 8.6 MG TAB PO SCH (21:36)
[2023-03-22] MEDS: Senokot S 8.6-50 MG TAB PO SCH (21:36)
[2023-03-22] MEDS: Melatonin 3 MG TAB PO SCH ×2 (21:36→22:18)
[2023-03-22] MEDS: metFORMIN 500 MG TAB PO SCH ×2 (21:36→22:17)
[2023-03-23] MEDS: Piperacillin/Tazobactam 3.375 GM in Sodium Chloride 0.9% 100 ML IVPB SCH ×4 (01:46→23:21)
[2023-03-23] MEDS: HYDROcodone/Acetaminophen 7.5/325 mg Tablet PO PRN ×3 (02:33→23:18)
[2023-03-23] MEDS: Mometasone 200 MCG/Formoterol 5 MCG 120 PUFF INHALER INH SCH ×2 (06:58→18:13)
[2023-03-23] MEDS: Furosemide 40 MG TAB PO SCH ×2 (08:38→08:39)
[2023-03-23] MEDS: hydrOXYzine 25 MG TAB PO SCH ×3 (08:38→20:46)
[2023-03-23] MEDS: Senokot S 8.6-50 MG TAB PO SCH ×2 (08:38→20:47)
[2023-03-23] MEDS: Aspirin 81 mg Enteric Coated Tablet PO SCH (08:38)
[2023-03-23] MEDS: metFORMIN 500 MG TAB PO SCH ×2 (08:38→20:46)
[2023-03-23] MEDS: Ipratropium/Albuterol 3 ML NEB NEB PRN (10:41)
[2023-03-23 12:28] VITALS: BMI 30.2
[2023-03-23 12:57] LABS: #Basophils 0.1 thou/uL (0.0-0.2); #Eosinphils 0.3 thou/uL (0.0-0.7); #Monocytes 0.8 thou/uL (0.11-0.59); #Neutrophils 6.2 thou/uL (1.40-6.50); %Basophils 0.6 % (0.0-1.0); %Lymphocytes 11.3 % (21.0-51.0); %Monocytes 9.9 % (0.0-10.0); %Neutrophils 74.8 % (42.0-75.0); Hemoglobin 11.9 g/dL (14.0-18.0); Mean Corpuscular Hemoglobin 24.7 pg (27.0-31.0); Mean Corpuscular Volume 77.3 fl (78.0-98.0); Mean Platelet Volume 11.5 fL (7.4-10.4); Platelet Count 338 10x3/uL (130-400); RBC Distribution Width 17.4 % (11.5-14.5); Red Blood Cell (RBC) Count 4.81 mill/uL (4.70-6.10); White Blood Cell (WBC) Count 8.3 10x3/uL (4.8-10.8)
[2023-03-23 13:19] LABS: Anion Gap 15 mmol/L (10-20); BUN (Urea Nitrogen) 34 mg/dL (8.4-25.7); Calc. Creatinine Clearance 52 mL/min (70-130); Calcium 9.4 mg/dL (7.8-10.44); Carbon Dioxide 23 mmol/L (23-31); Chloride 102 mmol/L (98-107); Estimated GFR 35; Glucose 138 mg/dL (83-110); Potassium 4.3 mmol/L (3.5-5.1); Sodium 136 mmol/L (136-145)
[2023-03-23] MEDS: Melatonin 3 MG TAB PO SCH (20:46)
[2023-03-23] MEDS: Senokot 8.6 MG TAB PO SCH (20:46)
[2023-03-23] MEDS: Atorvastatin Calcium 40 MG TAB PO SCH (20:46)
[2023-03-23] MEDS: VANCOMYCIN 1.25 GM/250 ML BAG 1.25 GM in Premix Bag 1 BAG IVPB SCH (20:52)
[2023-03-24 06:58] LABS: #Basophils 0.1 thou/uL (0.0-0.2); #Eosinphils 0.2 thou/uL (0.0-0.7); #Monocytes 0.7 thou/uL (0.11-0.59); #Neutrophils 4.7 thou/uL (1.40-6.50); %Basophils 0.9 % (0.0-1.0); %Eosinophils 3.2 % (0.0-10.0); %Lymphocytes 16.7 % (21.0-51.0); %Neutrophils 68.9 % (42.0-75.0); Hemoglobin 11.7 g/dL (14.0-18.0); Mean Corpuscular HGB CONC 32.6 g/dL (32.0-36.0); Mean Corpuscular Hemoglobin 24.5 pg (27.0-31.0); Mean Corpuscular Volume 75.3 fl (78.0-98.0); Mean Platelet Volume 11.4 fL (7.4-10.4); Platelet Count 325 10x3/uL (130-400); RBC Distribution Width 17.3 % (11.5-14.5); Red Blood Cell (RBC) Count 4.77 mill/uL (4.70-6.10); White Blood Cell (WBC) Count 6.9 10x3/uL (4.8-10.8)
[2023-03-24 07:27] LABS: Anion Gap 14 mmol/L (10-20); BUN (Urea Nitrogen) 33 mg/dL (8.4-25.7); Calc. Creatinine Clearance 59 mL/min (70-130); Calcium 9.2 mg/dL (7.8-10.44); Carbon Dioxide 23 mmol/L (23-31); Chloride 103 mmol/L (98-107); Estimated GFR 42; Glucose 94 mg/dL (83-110); Potassium 4.1 mmol/L (3.5-5.1); Sodium 136 mmol/L (136-145)
[2023-03-24] MEDS: Mometasone 200 MCG/Formoterol 5 MCG 120 PUFF INHALER INH SCH ×2 (07:31→19:07)
[2023-03-24] MEDS: Aspirin 81 mg Enteric Coated Tablet PO SCH (08:37)
[2023-03-24] MEDS: Senokot S 8.6-50 MG TAB PO SCH ×2 (08:37→21:01)
[2023-03-24] MEDS: Furosemide 40 MG TAB PO SCH (08:37)
[2023-03-24] MEDS: metFORMIN 500 MG TAB PO SCH ×2 (08:37→20:59)
[2023-03-24] MEDS: Piperacillin/Tazobactam 3.375 GM in Sodium Chloride 0.9% 100 ML IVPB SCH ×2 (08:37→16:37)
[2023-03-24] MEDS: Fluticasone Propionate Nasal Spray 16 gm Bottle NASAL SCH (08:40)
[2023-03-24] MEDS: hydrOXYzine 25 MG TAB PO SCH ×3 (08:40→20:59)
[2023-03-24] MEDS: Ipratropium/Albuterol 3 ML NEB NEB PRN (10:36)
[2023-03-24] MEDS ORDERED: Sodium Chloride 0.65% Nasal 44 ML BOT EA NARE PRN (10:40)
[2023-03-24] MEDS: HYDROcodone/Acetaminophen 7.5/325 mg Tablet PO PRN ×2 (12:46→21:00)
[2023-03-24 19:56] LABS: Vancomycin, Trough 15.5 ug/mL
[2023-03-24] MEDS: Senokot 8.6 MG TAB PO SCH (20:59)
[2023-03-24] MEDS: Melatonin 3 MG TAB PO SCH (20:59)
[2023-03-24] MEDS: Atorvastatin Calcium 40 MG TAB PO SCH (21:00)
[2023-03-24] MEDS: VANCOMYCIN 1.25 GM/250 ML BAG 1.25 GM in Premix Bag 1 BAG IVPB SCH (21:13)
[2023-03-25] MEDS: HYDROcodone/Acetaminophen 7.5/325 mg Tablet PO PRN ×3 (01:28→18:33)
[2023-03-25] MEDS: Piperacillin/Tazobactam 3.375 GM in Sodium Chloride 0.9% 100 ML IVPB SCH ×3 (01:29→17:09)
[2023-03-25 07:04] LABS: #Basophils 0.1 thou/uL (0.0-0.2); #Eosinphils 0.2 thou/uL (0.0-0.7); #Monocytes 0.7 thou/uL (0.11-0.59); #Neutrophils 5.2 thou/uL (1.40-6.50); %Basophils 0.9 % (0.0-1.0); %Lymphocytes 17.8 % (21.0-51.0); %Neutrophils 68.8 % (42.0-75.0); Hemoglobin 12.4 g/dL (14.0-18.0); Mean Corpuscular HGB CONC 31.7 g/dL (32.0-36.0); Mean Corpuscular Hemoglobin 24.9 pg (27.0-31.0); Mean Corpuscular Volume 78.7 fl (78.0-98.0); Mean Platelet Volume 11.3 fL (7.4-10.4); Platelet Count 344 10x3/uL (130-400); RBC Distribution Width 17.9 % (11.5-14.5); Red Blood Cell (RBC) Count 4.97 mill/uL (4.70-6.10); White Blood Cell (WBC) Count 7.6 10x3/uL (4.8-10.8)
[2023-03-25 07:30] LABS: Anion Gap 15 mmol/L (10-20); BUN (Urea Nitrogen) 34 mg/dL (8.4-25.7); Calc. Creatinine Clearance 62 mL/min (70-130); Calcium 9.7 mg/dL (7.8-10.44); Carbon Dioxide 23 mmol/L (23-31); Chloride 104 mmol/L (98-107); Estimated GFR 44; Glucose 118 mg/dL (83-110); Potassium 4.8 mmol/L (3.5-5.1); Sodium 137 mmol/L (136-145)
[2023-03-25] MEDS: Mometasone 200 MCG/Formoterol 5 MCG 120 PUFF INHALER INH SCH ×2 (08:03→18:30)
[2023-03-25] MEDS: hydrOXYzine 25 MG TAB PO SCH ×3 (08:27→21:20)
[2023-03-25] MEDS: Senokot S 8.6-50 MG TAB PO SCH ×2 (08:27→21:20)
[2023-03-25] MEDS: Aspirin 81 mg Enteric Coated Tablet PO SCH (08:27)
[2023-03-25] MEDS: metFORMIN 500 MG TAB PO SCH ×2 (08:27→21:19)
[2023-03-25] MEDS: Furosemide 40 MG TAB PO SCH (08:28)
[2023-03-25] MEDS: Fluticasone Propionate Nasal Spray 16 gm Bottle NASAL SCH (08:29)
[2023-03-25] MEDS: Melatonin 3 MG TAB PO SCH (21:19)
[2023-03-25] MEDS: Senokot 8.6 MG TAB PO SCH (21:19)
[2023-03-25] MEDS: Atorvastatin Calcium 40 MG TAB PO SCH (21:20)
[2023-03-25] MEDS: VANCOMYCIN 1.25 GM/250 ML BAG 1.25 GM in Premix Bag 1 BAG IVPB SCH (21:20)
[2023-03-26] MEDS: Piperacillin/Tazobactam 3.375 GM in Sodium Chloride 0.9% 100 ML IVPB SCH ×3 (00:45→15:46)
[2023-03-26] MEDS: HYDROcodone/Acetaminophen 7.5/325 mg Tablet PO PRN ×2 (04:40→09:27)
[2023-03-26 07:29] LABS: #Basophils 0.1 thou/uL (0.0-0.2); #Eosinphils 0.2 thou/uL (0.0-0.7); #Monocytes 0.8 thou/uL (0.11-0.59); #Neutrophils 6.7 thou/uL (1.40-6.50); %Basophils 1.2 % (0.0-1.0); %Eosinophils 2.2 % (0.0-10.0); %Lymphocytes 14.1 % (21.0-51.0); %Monocytes 8.3 % (0.0-10.0); %Neutrophils 73.4 % (42.0-75.0); Hemoglobin 12.9 g/dL (14.0-18.0); Mean Corpuscular HGB CONC 29.9 g/dL (32.0-36.0); Mean Corpuscular Hemoglobin 24.9 pg (27.0-31.0); Mean Corpuscular Volume 83.4 fl (78.0-98.0); Mean Platelet Volume 12.2 fL (7.4-10.4); Platelet Count 277 10x3/uL (130-400); Red Blood Cell (RBC) Count 5.18 mill/uL (4.70-6.10); White Blood Cell (WBC) Count 9.1 10x3/uL (4.8-10.8)
[2023-03-26] MEDS: Mometasone 200 MCG/Formoterol 5 MCG 120 PUFF INHALER INH SCH (08:24)
[2023-03-26] MEDS: hydrOXYzine 25 MG TAB PO SCH ×2 (09:07→14:51)
[2023-03-26] MEDS: Aspirin 81 mg Enteric Coated Tablet PO SCH (09:08)
[2023-03-26] MEDS: Furosemide 40 MG TAB PO SCH (09:08)
[2023-03-26] MEDS: metFORMIN 500 MG TAB PO SCH (09:08)
[2023-03-26] MEDS: Fluticasone Propionate Nasal Spray 16 gm Bottle NASAL SCH (09:09)
[2023-03-26] MEDS: Senokot S 8.6-50 MG TAB PO SCH (09:09)
[2023-03-26] MEDS ORDERED: Nitroglycerin 0.4 MG TAB (25 Tab Bottle) SL SCH (11:30)
[2023-03-26 12:30] LABS: Anion Gap 15 mmol/L (10-20); BUN (Urea Nitrogen) 32 mg/dL (8.4-25.7); Calc. Creatinine Clearance 74 mL/min (70-130); Calcium 9.1 mg/dL (7.8-10.44); Carbon Dioxide 21 mmol/L (23-31); Chloride 105 mmol/L (98-107); Estimated GFR 55; Glucose 129 mg/dL (83-110); Potassium 4.5 mmol/L (3.5-5.1); Sodium 136 mmol/L (136-145)
[2023-03-26 12:36] LABS: Troponin I 0.023 ng/mL (< 0.028)
[2023-03-26 17:46] VITALS: BP 130/85; TEMP 97.4
== END 2023-03-26 19:40 | disposition left against medical advice (07) | DRG 603 ==
LOC: ERS 09:30 → ERHOLD 12:23 → T4-A 15:53 → OBSVTOIN 03-24 14:53
PROVIDERS: ADMIT Student in an Organized Health Care Education/Training Program; ATTEND Student in an Organized Health Care Education/Training Program
DX: L03.116 Cellulitis of left lower limb (principal); I13.0 Hypertensive heart and chronic kidney disease with heart failure and stage 1 through stage 4 chronic kidney disease, or unspecified chronic kidney disease; N17.9 Acute kidney failure, unspecified; I50.22 Chronic systolic (congestive) heart failure; Z16.24 Resistance to multiple antibiotics; I48.91 Unspecified atrial fibrillation; E11.22 Type 2 diabetes mellitus with diabetic chronic kidney disease; F17.210 Nicotine dependence, cigarettes, uncomplicated; N18.32 Chronic kidney disease, stage 3b; E11.51 Type 2 diabetes mellitus with diabetic peripheral angiopathy without gangrene; I25.10 Atherosclerotic heart disease of native coronary artery without angina pectoris; J44.9 Chronic obstructive pulmonary disease, unspecified; F41.9 Anxiety disorder, unspecified; Z66 Do not resuscitate; Z88.8 Allergy status to other drugs, medicaments and biological substances; Z79.82 Long term (current) use of aspirin; Z79.51 Long term (current) use of inhaled steroids; Z79.899 Other long term (current) drug therapy; Z95.1 Presence of aortocoronary bypass graft
CPT/HCPCS: 36415; 36416; 80048; 80053; 80202; 80306; 81001; 83605; 84145; 84484; 85025; 87040; 93005; 93010; 94640; 96365; 96367; 96372; 96375; 96376; 97139; G0378; J0692; J1650; J2543; J3370; J3490; J7620

== ENCOUNTER 2023-04-03 02:14 | Emergency (ER) | payer OTHER ==
[2023-04-03 03:28] LABS: #Basophils 0.1 thou/uL (0.0-0.2); #Eosinphils 0.2 thou/uL (0.0-0.7); #Monocytes 0.7 thou/uL (0.11-0.59); #Neutrophils 6.1 thou/uL (1.40-6.50); %Basophils 0.7 % (0.0-1.0); %Eosinophils 2.3 % (0.0-10.0); %Lymphocytes 12.9 % (21.0-51.0); %Neutrophils 74.6 % (42.0-75.0); Hemoglobin 7.9 g/dL (14.0-18.0); Mean Corpuscular HGB CONC 31.9 g/dL (32.0-36.0); Mean Corpuscular Hemoglobin 24.5 pg (27.0-31.0); Mean Corpuscular Volume 76.8 fl (78.0-98.0); Mean Platelet Volume 11.4 fL (7.4-10.4); Platelet Count 399 10x3/uL (130-400); RBC Distribution Width 17.2 % (11.5-14.5); Red Blood Cell (RBC) Count 3.23 mill/uL (4.70-6.10); White Blood Cell (WBC) Count 8.1 10x3/uL (4.8-10.8)
[2023-04-03] MEDS ORDERED: Ketorolac Tromethamine 30 MG/ML VIAL ONE (03:48)
[2023-04-03 03:53] LABS: ALT (SGPT) 12 U/L (8-55); AST (SGOT) 15 U/L (5-34); Albumin 3.6 g/dL (3.4-4.8); Alkaline Phosphatase 140 U/L (40-110); Anion Gap 18 mmol/L (10-20); BUN (Urea Nitrogen) 31 mg/dL (8.4-25.7); Bilirubin, Total 0.8 mg/dL (0.2-1.2); Calc. Creatinine Clearance 0 mL/min (70-130); Calcium 9.3 mg/dL (7.8-10.44); Carbon Dioxide 20 mmol/L (23-31); Chloride 105 mmol/L (98-107); Estimated GFR 47; Globulin 2.9 g/dL (2.4-3.5); Glucose 124 mg/dL (83-110); Potassium 4.5 mmol/L (3.5-5.1); Protein, Total 6.5 g/dL (5.8-8.1); Sodium 138 mmol/L (136-145)
== END 2023-04-03 04:12 | disposition home or self-care (01) ==
LOC: ERS 02:14
DX: G89.18 Other acute postprocedural pain (principal); I25.10 Atherosclerotic heart disease of native coronary artery without angina pectoris; I11.0 Hypertensive heart disease with heart failure; I50.9 Heart failure, unspecified; E11.9 Type 2 diabetes mellitus without complications; J44.9 Chronic obstructive pulmonary disease, unspecified; F17.210 Nicotine dependence, cigarettes, uncomplicated
CPT/HCPCS: 36415; 80053; 85025; 96372; 99283; J1885

== ENCOUNTER 2023-04-05 10:23 | Inpatient (IN) | payer OTHER, MEDICAID ==
[2023-04-05 11:23] LABS: #Monocytes 1.6 thou/uL (0.11-0.59); #Neutrophils 12.4 thou/uL (1.40-6.50); %Basophils 0.1 % (0.0-1.0); %Lymphocytes 6.2 % (21.0-51.0); %Monocytes 10.5 % (0.0-10.0); %Neutrophils 82.5 % (42.0-75.0); Hemoglobin 6.7 g/dL (14.0-18.0); Mean Corpuscular HGB CONC 32.4 g/dL (32.0-36.0); Mean Corpuscular Hemoglobin 24.5 pg (27.0-31.0); Mean Corpuscular Volume 75.8 fl (78.0-98.0); Mean Platelet Volume 11.4 fL (7.4-10.4); Platelet Count 443 10x3/uL (130-400); RBC Distribution Width 17.2 % (11.5-14.5); Red Blood Cell (RBC) Count 2.73 mill/uL (4.70-6.10)
[2023-04-05 11:28] LABS: INR-International Normal Ratio 2.3
[2023-04-05 11:29] LABS: PTT 35.3 sec (22.9-36.1)
[2023-04-05 11:34] LABS: ALT (SGPT) 702 U/L (8-55); AST (SGOT) 970 U/L (5-34); Albumin 3.6 g/dL (3.4-4.8); Alkaline Phosphatase 127 U/L (40-110); Anion Gap 28 mmol/L (10-20); BUN (Urea Nitrogen) 57 mg/dL (8.4-25.7); Bilirubin, Total 2.1 mg/dL (0.2-1.2); Calc. Creatinine Clearance 0 mL/min (70-130); Calcium 9.4 mg/dL (7.8-10.44); Carbon Dioxide 12 mmol/L (23-31); Chloride 100 mmol/L (98-107); Estimated GFR 21; Globulin 2.5 g/dL (2.4-3.5); Glucose 63 mg/dL (83-110); Protein, Total 6.1 g/dL (5.8-8.1); Sodium 134 mmol/L (136-145)
[2023-04-05 11:36] LABS: Potassium 6.2 mmol/L (3.5-5.1)
[2023-04-05] MEDS ORDERED: Cefepime 2 GM VIAL ONE (11:44)
[2023-04-05] MEDS ORDERED: VANCOMYCIN 2 GRAM/500 ML BAG 2 GM in Premix Bag 1 BAG IVPB SCH (12:00)
[2023-04-05 12:25] LABS: Base Excess -12.3 mEq/L (-2.0 to +3.0); Calcium, Ionized (venous) 0.95 mmol/L (1.16-1.32); Chloride (VBG) 102 mmol/L (98-106); Hematocrit-VBG 25 % (42.0-52.0); Hemoglobin (Hb) 8.4 g/dL (12.6-17.4); Sodium 131.8 mmol/L (133-146); pH (venous) 7.378 (7.32-7.43)
[2023-04-05] MEDS ORDERED: Calcium Chloride 1 GM/10 ML Abboject SYRINGE ONE ×2 (13:14→14:18)
[2023-04-05] MEDS ORDERED: Dextrose 50% Abboject 50 ML SYRINGE ONE (14:18)
[2023-04-05 14:37] LABS: Lactic Acid 10.4 mmol/L (0.5-2.2)
[2023-04-05] MEDS ORDERED: Acetaminophen 325 MG TAB PO PRN (14:47)
[2023-04-05] MEDS ORDERED: Lactated Ringer's 1,000 ML IV SCH (15:00)
[2023-04-05] MEDS ORDERED: Dextrose 5% in Water 1,000 ML IV PRN (15:10)
[2023-04-05] MEDS ORDERED: Glucagon 1 MG/ML KIT IM PRN (15:10)
[2023-04-05] MEDS ORDERED: Dextrose 50% Abboject 50 ML SYRINGE SLOW IVP PRN (15:10)
[2023-04-05] MEDS ORDERED: HumaLOG 300 UNITS/3 ML VIAL SC PRN ×2 (15:10)
[2023-04-05] MEDS ORDERED: Albuterol 200 PUFF (6.7GM INHALER) INH PRN (15:11)
[2023-04-05 16:49] LABS: ALT (SGPT) 1049 U/L (8-55); AST (SGOT) 1567 U/L (5-34); Albumin 3.6 g/dL (3.4-4.8); Alkaline Phosphatase 125 U/L (40-110); Anion Gap 26 mmol/L (10-20); BUN (Urea Nitrogen) 57 mg/dL (8.4-25.7); Bilirubin, Total 2.3 mg/dL (0.2-1.2); Calc. Creatinine Clearance 33 mL/min (70-130); Calcium 9.8 mg/dL (7.8-10.44); Carbon Dioxide 11 mmol/L (23-31); Chloride 104 mmol/L (98-107); Estimated GFR 23; Globulin 2.5 g/dL (2.4-3.5); Glucose 106 mg/dL (83-110); Potassium 5.6 mmol/L (3.5-5.1); Protein, Total 6.1 g/dL (5.8-8.1); Sodium 135 mmol/L (136-145)
[2023-04-05 16:50] LABS: Acetaminophen Less than 10 mcg/mL (10.0-30.0); Alcohol Less than 10.0 mg/dL (Less than 10); Lactic Acid 9.9 mmol/L (0.5-2.2); Salicylate Less than 8.0 mg/dL (15.0-30.0)
[2023-04-05 17:03] LABS: HBCM Index 0.09 S/CO (0-0.79); HBSAg Index 0.24 S/CO (0-0.99); HIV (1/2) Antibody/Antigen Non-Reactive (NonReactive); HIV 1/2 INDEX 0.11 S/CO (<1.00); Hep A IgM AB Non-Reactive S/CO (NonReactive); Hep A IgM S/CO 0.26 S/CO (0-0.79); Hep B Surf Ag Non-Reactive S/CO (NonReactive); Hepatitis B Core IgM Abs Non-Reactive S/CO (NonReactive)
[2023-04-05 17:07] LABS: Hep C IgG Ab Reflex HepC Qnt S/CO (NonReactive); Hep C Index 6.14 S/CO (0-0.79)
[2023-04-05] MEDS ORDERED: Vancomycin Dose by Levels Sliding Scale (Wt > 99) FS SCH (17:45)
[2023-04-05] MEDS: Sodium Chloride 0.9% 1,000 ML IV SCH (17:46)
[2023-04-05] MEDS: Mometasone 200 MCG/Formoterol 5 MCG 120 PUFF INHALER INH SCH (18:42)
[2023-04-05 19:36] LABS: Lactic Acid 7.3 mmol/L (0.5-2.2)
[2023-04-05 20:29] LABS: ALT (SGPT) 1123 U/L (8-55); AST (SGOT) 1639 U/L (5-34); Albumin 3.1 g/dL (3.4-4.8); Alkaline Phosphatase 109 U/L (40-110); Anion Gap 22 mmol/L (10-20); BUN (Urea Nitrogen) 58 mg/dL (8.4-25.7); Bilirubin, Total 1.5 mg/dL (0.2-1.2); Calc. Creatinine Clearance 37 mL/min (70-130); Carbon Dioxide 11 mmol/L (23-31); Chloride 107 mmol/L (98-107); Estimated GFR 25; Globulin 2.2 g/dL (2.4-3.5); Glucose 100 mg/dL (83-110); Protein, Total 5.3 g/dL (5.8-8.1); Sodium 134 mmol/L (136-145)
[2023-04-05 20:33] LABS: Potassium 6.2 mmol/L (3.5-5.1)
[2023-04-05] MEDS: Morphine 2 MG/ML VIAL SLOW IVP PRN (20:49)
[2023-04-05] MEDS ORDERED: hydrOXYzine 25 MG TAB PO SCH (21:00)
[2023-04-05] MEDS ORDERED: Cefepime 2 GM in Sodium Chloride 0.9% 100 ML IVPB SCH (21:00)
[2023-04-05] MEDS ORDERED: Sodium Bicarb 50 MEQ/50 ML VIAL IVP SCH (22:00)
[2023-04-05 22:12] LABS: Bacteria/HPF 1+ HPF (None Seen); Bilirubin Negative (Negative); Blood, Urine Negative (Negative); CAUTI Indications for Culture Alt mental st,lethar; Clarity Clear (Clear); Glucose, Urine (Dipstick) Normal (Negative); Ketone, Urine Trace mg/dL (Negative); Leukocyte Negative Leu/uL (Negative); Nitrite Negative (Negative); Protein, Urine (Dipstick) 30 mg/dL (Neg-Trace); RBC/HPF 0-3 HPF (0-3); Specific Gravity, Urine 1.019 (1.002-1.036); Squamous Epithelial 0-3 HPF (0-3); Urobilinogen Normal mg/dL (Less than 2); WBC/HPF 0-3 HPF (0-3)
[2023-04-05 22:13] LABS: Urine Culture Reflex No No
[2023-04-05 22:16] LABS: Amphetamine Detected (NotDetected); Barbiturates Screen Not Detected (NotDetected); Benzodiazepine Screen Not Detected (NotDetected); Cocaine Metabolite Screen Not Detected (NotDetected); Methadone Not Detected (NotDetected); Methamphetamine Detected (NotDetected); Opiate Screen Detected (NotDetected); Oxycodone Screen Not Detected (NotDetected); Phencyclidine (PCP) Not Detected (NotDetected); THC/Cannabinoid Screen Not Detected (NotDetected); Tricyclic Screen Not Detected (NotDetected)
[2023-04-05] MEDS ORDERED: Sodium Bicarbonate 150 MEQ in Dextrose 5% in Water 1,000 ML IV SCH (22:30)
[2023-04-05] MEDS: Hydrocortisone Sod Succ/PF 100 mg/2 ml Vial IVP SCH (22:52)
[2023-04-05] MEDS: Cefepime 1 GM in Sodium Chloride 0.9% 100 ML IVPB SCH (22:53)
[2023-04-05 23:27] LABS: Lactic Acid 3.2 mmol/L (0.5-2.2)
[2023-04-06] MEDS: traMADol HCl 50 MG TAB PO PRN ×2 (00:05→21:54)
[2023-04-06] MEDS: Sodium Chloride 0.9% 1,000 ML IV SCH ×3 (04:12→13:54)
[2023-04-06] MEDS: Hydrocortisone Sod Succ/PF 100 mg/2 ml Vial IVP SCH (06:01)
[2023-04-06 06:18] LABS: #Monocytes 0.6 thou/uL (0.11-0.59); %Basophils 0.2 % (0.0-1.0); %Eosinophils 0.1 % (0.0-10.0); %Lymphocytes 5.7 % (21.0-51.0); %Monocytes 5.4 % (0.0-10.0); Mean Corpuscular HGB CONC 32.6 g/dL (32.0-36.0); Mean Corpuscular Hemoglobin 24.9 pg (27.0-31.0); Mean Corpuscular Volume 76.5 fl (78.0-98.0); Mean Platelet Volume 11.3 fL (7.4-10.4); RBC Distribution Width 17.1 % (11.5-14.5); Red Blood Cell (RBC) Count 2.81 mill/uL (4.70-6.10); White Blood Cell (WBC) Count 10.2 10x3/uL (4.8-10.8)
[2023-04-06 06:22] LABS: Platelet Count 319 10x3/uL (130-400)
[2023-04-06 06:40] LABS: Magnesium 1.9 mg/dL (1.6-2.6)
[2023-04-06 06:41] LABS: ALT (SGPT) 1317 U/L (8-55); AST (SGOT) 1654 U/L (5-34); Albumin 3.3 g/dL (3.4-4.8); Alkaline Phosphatase 114 U/L (40-110); Anion Gap 16 mmol/L (10-20); BUN (Urea Nitrogen) 50 mg/dL (8.4-25.7); Bilirubin, Total 1.7 mg/dL (0.2-1.2); Calc. Creatinine Clearance 44 mL/min (70-130); Calcium 8.8 mg/dL (7.8-10.44); Carbon Dioxide 21 mmol/L (23-31); Chloride 104 mmol/L (98-107); Estimated GFR 32; Globulin 2.3 g/dL (2.4-3.5); Glucose 153 mg/dL (83-110); Potassium 4.6 mmol/L (3.5-5.1); Protein, Total 5.6 g/dL (5.8-8.1); Sodium 136 mmol/L (136-145)
[2023-04-06] MEDS: Mometasone 200 MCG/Formoterol 5 MCG 120 PUFF INHALER INH SCH ×2 (07:40→18:49)
[2023-04-06] MEDS ORDERED: Famotidine 20 MG TAB PO SCH (09:00)
[2023-04-06] MEDS: Aspirin 81 mg Enteric Coated Tablet PO SCH (09:24)
[2023-04-06 11:40] LABS: Syphilis Antibody Nonreactive (Nonreactive); Syphilis Antibody Index 0.03 S/CO (<1.00 Non-Reactive)
[2023-04-06 13:12] LABS: Hemoglobin 7.8 g/dL (14.0-18.0)
[2023-04-06] MEDS: Vancomycin 1 GM in Premix Bag 1 BAG IVPB SCH (13:54)
[2023-04-06] MEDS: Cefepime 1 GM in Sodium Chloride 0.9% 100 ML IVPB SCH ×2 (13:54→23:39)
[2023-04-06] MEDS: Morphine 2 MG/ML VIAL SLOW IVP PRN (17:38)
[2023-04-07] MEDS: Morphine 2 MG/ML VIAL SLOW IVP PRN ×4 (03:12→19:30)
[2023-04-07 04:24] LABS: #Eosinphils 0.2 thou/uL (0.0-0.7); #Monocytes 0.9 thou/uL (0.11-0.59); #Neutrophils 8.7 thou/uL (1.40-6.50); %Basophils 0.4 % (0.0-1.0); %Eosinophils 1.9 % (0.0-10.0); %Lymphocytes 9.2 % (21.0-51.0); %Monocytes 8.2 % (0.0-10.0); %Neutrophils 79.9 % (42.0-75.0); Hemoglobin 7.3 g/dL (14.0-18.0); Mean Corpuscular Hemoglobin 25.1 pg (27.0-31.0); Mean Corpuscular Volume 75.9 fl (78.0-98.0); Mean Platelet Volume 11.3 fL (7.4-10.4); Platelet Count 316 10x3/uL (130-400); RBC Distribution Width 17.4 % (11.5-14.5); Red Blood Cell (RBC) Count 2.91 mill/uL (4.70-6.10); White Blood Cell (WBC) Count 10.9 10x3/uL (4.8-10.8)
[2023-04-07] MEDS: traMADol HCl 50 MG TAB PO PRN ×2 (04:32→21:52)
[2023-04-07 04:46] LABS: ALT (SGPT) 996 U/L (8-55); AST (SGOT) 723 U/L (5-34); Albumin 2.9 g/dL (3.4-4.8); Alkaline Phosphatase 113 U/L (40-110); Anion Gap 12 mmol/L (10-20); BUN (Urea Nitrogen) 37 mg/dL (8.4-25.7); Bilirubin, Total 1.4 mg/dL (0.2-1.2); Calc. Creatinine Clearance 68 mL/min (70-130); Calcium 8.3 mg/dL (7.8-10.44); Carbon Dioxide 22 mmol/L (23-31); Chloride 106 mmol/L (98-107); Estimated GFR 50; Glucose 126 mg/dL (83-110); Potassium 3.3 mmol/L (3.5-5.1); Protein, Total 4.9 g/dL (5.8-8.1); Sodium 137 mmol/L (136-145)
[2023-04-07] MEDS ORDERED: Potassium Chloride 20 MEQ TAB PO SCH (06:00)
[2023-04-07] MEDS: Mometasone 200 MCG/Formoterol 5 MCG 120 PUFF INHALER INH SCH ×2 (07:03→18:51)
[2023-04-07] MEDS: Aspirin 81 mg Enteric Coated Tablet PO SCH (08:42)
[2023-04-07] MEDS: Sodium Chloride 0.9% 1,000 ML IV SCH (08:45)
[2023-04-07 08:50] VITALS: BMI 29.2
[2023-04-07 11:24] LABS: Actual Bicarbonate (HCO3v) 11.3 mEq/L (22-28)
[2023-04-07] MEDS: Vancomycin 1 GM in Premix Bag 1 BAG IVPB SCH (12:42)
[2023-04-07] MEDS: Cefepime 1 GM in Sodium Chloride 0.9% 100 ML IVPB SCH (12:42)
[2023-04-07] MEDS ORDERED: Furosemide 20 MG/2 ML VIAL SLOW IVP SCH (17:15)
[2023-04-07] MEDS: Ipratropium/Albuterol 3 ML NEB NEB PRN (19:35)
[2023-04-07] MEDS: Melatonin 3 MG TAB PO PRN (21:52)
[2023-04-08] MEDS: Cefepime 1 GM in Sodium Chloride 0.9% 100 ML IVPB SCH ×3 (00:15→23:21)
[2023-04-08] MEDS: Morphine 2 MG/ML VIAL SLOW IVP PRN ×5 (00:15→20:51)
[2023-04-08 05:31] LABS: ALT (SGPT) 902 U/L (8-55); AST (SGOT) 428 U/L (5-34); Albumin 2.8 g/dL (3.4-4.8); Alkaline Phosphatase 144 U/L (40-110); Anion Gap 14 mmol/L (10-20); BUN (Urea Nitrogen) 27 mg/dL (8.4-25.7); Bilirubin, Total 1.7 mg/dL (0.2-1.2); Calc. Creatinine Clearance 75 mL/min (70-130); Calcium 8.3 mg/dL (7.8-10.44); Carbon Dioxide 16 mmol/L (23-31); Chloride 111 mmol/L (98-107); Estimated GFR 56; Glucose 124 mg/dL (83-110); Potassium 4.9 mmol/L (3.5-5.1); Protein, Total 5.8 g/dL (5.8-8.1); Sodium 136 mmol/L (136-145)
[2023-04-08] MEDS: Sodium Chloride 0.9% 1,000 ML IV SCH (05:34)
[2023-04-08] MEDS: Mometasone 200 MCG/Formoterol 5 MCG 120 PUFF INHALER INH SCH ×2 (07:33→18:41)
[2023-04-08] MEDS: Senokot S 8.6-50 MG TAB PO SCH ×2 (09:48→20:51)
[2023-04-08] MEDS: Aspirin 81 mg Enteric Coated Tablet PO SCH (09:49)
[2023-04-08] MEDS: Furosemide 40 MG TAB PO SCH (09:49)
[2023-04-08] MEDS: Metamucil PACK PO SCH (09:51)
[2023-04-08] MEDS: Lidocaine 4% Patch TD SCH (09:54)
[2023-04-08] MEDS: traMADol HCl 50 MG TAB PO PRN ×2 (10:01→23:20)
[2023-04-08 12:38] LABS: #Basophils 0.1 thou/uL (0.0-0.2); #Eosinphils 0.3 thou/uL (0.0-0.7); #Monocytes 1.1 thou/uL (0.11-0.59); #Neutrophils 6.6 thou/uL (1.40-6.50); %Basophils 0.5 % (0.0-1.0); %Eosinophils 3.7 % (0.0-10.0); %Lymphocytes 10.6 % (21.0-51.0); %Monocytes 11.8 % (0.0-10.0); %Neutrophils 72.7 % (42.0-75.0); Hemoglobin 8.9 g/dL (14.0-18.0); Mean Corpuscular HGB CONC 32.4 g/dL (32.0-36.0); Mean Corpuscular Hemoglobin 25.4 pg (27.0-31.0); Mean Corpuscular Volume 78.6 fl (78.0-98.0); Platelet Count 357 10x3/uL (130-400); RBC Distribution Width 18.2 % (11.5-14.5); White Blood Cell (WBC) Count 9.1 10x3/uL (4.8-10.8)
[2023-04-08 12:58] LABS: Vancomycin, Trough 11.3 ug/mL
[2023-04-08] MEDS: Vancomycin 1.5 GRAM/300 ML BAG 1.5 GM in Premix Bag 1 BAG IVPB SCH (14:55)
[2023-04-08] MEDS: Vancomycin 1 GM in Premix Bag 1 BAG IVPB SCH (17:42)
[2023-04-08] MEDS: Ipratropium/Albuterol 3 ML NEB NEB PRN (18:38)
[2023-04-08] MEDS: hydrOXYzine 25 MG TAB PO PRN (20:51)
[2023-04-08] MEDS: Melatonin 3 MG TAB PO PRN (20:51)
[2023-04-08] MEDS: Transdermal Patch Removal TOP SCH (20:52)
[2023-04-09] MEDS: Morphine 2 MG/ML VIAL SLOW IVP PRN ×5 (01:00→20:39)
[2023-04-09] MEDS: hydrOXYzine 25 MG TAB PO PRN ×2 (04:09→09:09)
[2023-04-09 05:48] LABS: #Basophils 0.1 thou/uL (0.0-0.2); #Eosinphils 0.4 thou/uL (0.0-0.7); #Monocytes 0.8 thou/uL (0.11-0.59); #Neutrophils 5.9 thou/uL (1.40-6.50); %Basophils 0.6 % (0.0-1.0); %Eosinophils 5.2 % (0.0-10.0); %Lymphocytes 12.3 % (21.0-51.0); %Monocytes 10.2 % (0.0-10.0); %Neutrophils 71.5 % (42.0-75.0); Hemoglobin 8.8 g/dL (14.0-18.0); Mean Corpuscular HGB CONC 30.9 g/dL (32.0-36.0); Mean Corpuscular Hemoglobin 24.9 pg (27.0-31.0); Mean Corpuscular Volume 80.5 fl (78.0-98.0); Mean Platelet Volume 11.8 fL (7.4-10.4); Platelet Count 339 10x3/uL (130-400); RBC Distribution Width 18.6 % (11.5-14.5); Red Blood Cell (RBC) Count 3.54 mill/uL (4.70-6.10); White Blood Cell (WBC) Count 8.2 10x3/uL (4.8-10.8)
[2023-04-09 06:11] LABS: ALT (SGPT) 746 U/L (8-55); AST (SGOT) 247 U/L (5-34); Albumin 3.3 g/dL (3.4-4.8); Alkaline Phosphatase 148 U/L (40-110); Anion Gap 14 mmol/L (10-20); BUN (Urea Nitrogen) 27 mg/dL (8.4-25.7); Bilirubin, Total 1.7 mg/dL (0.2-1.2); Calc. Creatinine Clearance 90 mL/min (70-130); Calcium 8.7 mg/dL (7.8-10.44); Carbon Dioxide 21 mmol/L (23-31); Chloride 108 mmol/L (98-107); Estimated GFR 69; Globulin 2.5 g/dL (2.4-3.5); Glucose 112 mg/dL (83-110); Potassium 3.9 mmol/L (3.5-5.1); Protein, Total 5.8 g/dL (5.8-8.1); Sodium 139 mmol/L (136-145)
[2023-04-09] MEDS ORDERED: Lidocaine 4% Patch TD SCH (09:00)
[2023-04-09] MEDS: Metamucil PACK PO SCH ×2 (09:08→09:18)
[2023-04-09] MEDS: Senokot S 8.6-50 MG TAB PO SCH ×2 (09:09→20:39)
[2023-04-09] MEDS: Aspirin 81 mg Enteric Coated Tablet PO SCH (09:09)
[2023-04-09] MEDS: Furosemide 40 MG TAB PO SCH (09:09)
[2023-04-09] MEDS: Lidocaine 4% Patch TD SCH (09:17)
[2023-04-09] MEDS ORDERED: hydrOXYzine 25 MG TAB PO PRN (09:32)
[2023-04-09] MEDS ORDERED: hydrOXYzine 25 MG TAB PO SCH ×2 (09:45→22:48)
[2023-04-09] MEDS: Mometasone 200 MCG/Formoterol 5 MCG 120 PUFF INHALER INH SCH ×2 (10:37→19:24)
[2023-04-09] MEDS: Cefepime 2 GM in Sodium Chloride 0.9% 100 ML IVPB SCH ×2 (11:42→14:45)
[2023-04-09] MEDS: Vancomycin 1.5 GRAM/300 ML BAG 1.5 GM in Premix Bag 1 BAG IVPB SCH (15:18)
[2023-04-09 20:08] LABS: Hep C PCR-Quant HCV Not Detected IU/mL (.)
[2023-04-09] MEDS: busPIRone HCl 5 MG TAB PO SCH (20:38)
[2023-04-09] MEDS: Melatonin 3 MG TAB PO PRN (20:38)
[2023-04-09] MEDS: Transdermal Patch Removal TOP SCH (20:40)
[2023-04-09] MEDS: traMADol HCl 50 MG TAB PO PRN (22:33)
[2023-04-10] MEDS: Cefepime 2 GM in Sodium Chloride 0.9% 100 ML IVPB SCH ×2 (00:03→11:34)
[2023-04-10] MEDS: Morphine 2 MG/ML VIAL SLOW IVP PRN ×4 (01:14→20:13)
[2023-04-10] MEDS: Ipratropium/Albuterol 3 ML NEB NEB PRN (03:55)
[2023-04-10] MEDS: traMADol HCl 50 MG TAB PO PRN ×2 (04:00→17:24)
[2023-04-10 05:41] LABS: #Eosinphils 0.5 thou/uL (0.0-0.7); #Monocytes 0.7 thou/uL (0.11-0.59); #Neutrophils 4.8 thou/uL (1.40-6.50); %Basophils 0.6 % (0.0-1.0); %Eosinophils 7.3 % (0.0-10.0); %Lymphocytes 16.7 % (21.0-51.0); %Monocytes 9.1 % (0.0-10.0); %Neutrophils 65.9 % (42.0-75.0); Hemoglobin 8.5 g/dL (14.0-18.0); Mean Corpuscular HGB CONC 31.8 g/dL (32.0-36.0); Mean Corpuscular Hemoglobin 25.2 pg (27.0-31.0); Mean Corpuscular Volume 79.2 fl (78.0-98.0); Mean Platelet Volume 11.2 fL (7.4-10.4); Platelet Count 353 10x3/uL (130-400); RBC Distribution Width 18.9 % (11.5-14.5); Red Blood Cell (RBC) Count 3.37 mill/uL (4.70-6.10); White Blood Cell (WBC) Count 7.3 10x3/uL (4.8-10.8)
[2023-04-10 06:08] LABS: ALT (SGPT) 512 U/L (8-55); AST (SGOT) 133 U/L (5-34); Albumin 3.1 g/dL (3.4-4.8); Alkaline Phosphatase 147 U/L (40-110); Anion Gap 13 mmol/L (10-20); BUN (Urea Nitrogen) 31 mg/dL (8.4-25.7); Bilirubin, Total 1.2 mg/dL (0.2-1.2); Calc. Creatinine Clearance 87 mL/min (70-130); Calcium 8.7 mg/dL (7.8-10.44); Carbon Dioxide 25 mmol/L (23-31); Chloride 105 mmol/L (98-107); Estimated GFR 67; Globulin 2.5 g/dL (2.4-3.5); Glucose 183 mg/dL (83-110); Potassium 3.8 mmol/L (3.5-5.1); Protein, Total 5.6 g/dL (5.8-8.1); Sodium 139 mmol/L (136-145)
[2023-04-10] MEDS: Mometasone 200 MCG/Formoterol 5 MCG 120 PUFF INHALER INH SCH ×2 (07:30→19:24)
[2023-04-10] MEDS: Aspirin 81 mg Enteric Coated Tablet PO SCH (09:29)
[2023-04-10] MEDS: Senokot S 8.6-50 MG TAB PO SCH ×2 (09:29→21:54)
[2023-04-10] MEDS: busPIRone HCl 5 MG TAB PO SCH ×2 (09:29→17:24)
[2023-04-10] MEDS: Furosemide 40 MG TAB PO SCH (09:29)
[2023-04-10] MEDS: Metamucil PACK PO SCH (09:30)
[2023-04-10] MEDS: Lidocaine 4% Patch TD SCH (09:30)
[2023-04-10 12:01] LABS: Vancomycin, Trough 14.3 ug/mL
[2023-04-10] MEDS: Vancomycin 1.5 GRAM/300 ML BAG 1.5 GM in Premix Bag 1 BAG IVPB SCH (13:58)
[2023-04-10] MEDS ORDERED: Piperacillin/Tazobactam 4.5 GM in Sodium Chloride 0.9% 100 ML IVPB SCH (17:15)
[2023-04-10] MEDS: Transdermal Patch Removal TOP SCH (21:00)
[2023-04-10] MEDS: Piperacillin/Tazobactam 4.5 GM in Sodium Chloride 0.9% 100 ML IVPB SCH (21:55)
[2023-04-11] MEDS: Morphine 2 MG/ML VIAL SLOW IVP PRN ×4 (00:45→19:55)
[2023-04-11] MEDS: traMADol HCl 50 MG TAB PO PRN ×3 (02:01→22:07)
[2023-04-11] MEDS: Piperacillin/Tazobactam 4.5 GM in Sodium Chloride 0.9% 100 ML IVPB SCH ×3 (05:53→22:06)
[2023-04-11] MEDS: busPIRone HCl 5 MG TAB PO SCH ×2 (06:02→18:02)
[2023-04-11 06:49] LABS: #Basophils 0.1 thou/uL (0.0-0.2); #Eosinphils 0.5 thou/uL (0.0-0.7); #Monocytes 0.6 thou/uL (0.11-0.59); #Neutrophils 5.4 thou/uL (1.40-6.50); %Basophils 0.6 % (0.0-1.0); %Eosinophils 6.8 % (0.0-10.0); %Monocytes 8.1 % (0.0-10.0); %Neutrophils 69.1 % (42.0-75.0); Hemoglobin 8.3 g/dL (14.0-18.0); Mean Corpuscular HGB CONC 31.7 g/dL (32.0-36.0); Mean Corpuscular Hemoglobin 24.9 pg (27.0-31.0); Mean Corpuscular Volume 78.7 fl (78.0-98.0); Mean Platelet Volume 10.8 fL (7.4-10.4); Platelet Count 333 10x3/uL (130-400); RBC Distribution Width 19.1 % (11.5-14.5); Red Blood Cell (RBC) Count 3.33 mill/uL (4.70-6.10); White Blood Cell (WBC) Count 7.8 10x3/uL (4.8-10.8)
[2023-04-11] MEDS: Mometasone 200 MCG/Formoterol 5 MCG 120 PUFF INHALER INH SCH ×2 (07:02→18:31)
[2023-04-11 07:12] LABS: ALT (SGPT) 372 U/L (8-55); AST (SGOT) 71 U/L (5-34); Albumin 3.1 g/dL (3.4-4.8); Alkaline Phosphatase 134 U/L (40-110); Anion Gap 10 mmol/L (10-20); BUN (Urea Nitrogen) 29 mg/dL (8.4-25.7); Bilirubin, Total 1.2 mg/dL (0.2-1.2); Calc. Creatinine Clearance 87 mL/min (70-130); Calcium 8.8 mg/dL (7.8-10.44); Carbon Dioxide 27 mmol/L (23-31); Chloride 104 mmol/L (98-107); Estimated GFR 67; Globulin 2.4 g/dL (2.4-3.5); Glucose 140 mg/dL (83-110); Potassium 4.1 mmol/L (3.5-5.1); Protein, Total 5.5 g/dL (5.8-8.1); Sodium 137 mmol/L (136-145)
[2023-04-11] MEDS: Metamucil PACK PO SCH (08:57)
[2023-04-11] MEDS: Aspirin 81 mg Enteric Coated Tablet PO SCH (08:57)
[2023-04-11] MEDS: Senokot S 8.6-50 MG TAB PO SCH ×2 (08:57→19:59)
[2023-04-11] MEDS: Furosemide 40 MG TAB PO SCH (08:57)
[2023-04-11] MEDS: Lidocaine 4% Patch TD SCH (08:57)
[2023-04-11] MEDS: Transdermal Patch Removal TOP SCH (19:58)
[2023-04-12] MEDS: Morphine 2 MG/ML VIAL SLOW IVP PRN ×3 (02:13→18:01)
[2023-04-12] MEDS: busPIRone HCl 5 MG TAB PO SCH (06:13)
[2023-04-12] MEDS: Piperacillin/Tazobactam 4.5 GM in Sodium Chloride 0.9% 100 ML IVPB SCH ×2 (06:13→12:54)
[2023-04-12] MEDS: Mometasone 200 MCG/Formoterol 5 MCG 120 PUFF INHALER INH SCH ×2 (07:06→18:29)
[2023-04-12] MEDS: Furosemide 40 MG TAB PO SCH ×2 (08:27→08:32)
[2023-04-12] MEDS: Senokot S 8.6-50 MG TAB PO SCH (08:27)
[2023-04-12] MEDS: Aspirin 81 mg Enteric Coated Tablet PO SCH (08:27)
[2023-04-12] MEDS: traMADol HCl 50 MG TAB PO PRN ×2 (08:27→15:53)
[2023-04-12] MEDS: Lidocaine 4% Patch TD SCH (08:28)
[2023-04-12] MEDS: Metamucil PACK PO SCH (08:28)
[2023-04-12] MEDS ORDERED: busPIRone HCl 5 MG TAB PO SCH ×3 (09:05→19:00)
[2023-04-12 09:34] LABS: #Basophils 0.1 thou/uL (0.0-0.2); #Eosinphils 0.4 thou/uL (0.0-0.7); #Monocytes 0.9 thou/uL (0.11-0.59); #Neutrophils 6.5 thou/uL (1.40-6.50); %Basophils 0.6 % (0.0-1.0); %Eosinophils 4.8 % (0.0-10.0); %Lymphocytes 13.3 % (21.0-51.0); %Monocytes 10.2 % (0.0-10.0); %Neutrophils 70.8 % (42.0-75.0); Hemoglobin 9.3 g/dL (14.0-18.0); Mean Corpuscular HGB CONC 30.1 g/dL (32.0-36.0); Mean Corpuscular Hemoglobin 25.6 pg (27.0-31.0); Mean Platelet Volume 11.5 fL (7.4-10.4); Platelet Count 284 10x3/uL (130-400); RBC Distribution Width 19.9 % (11.5-14.5); Red Blood Cell (RBC) Count 3.63 mill/uL (4.70-6.10); White Blood Cell (WBC) Count 9.2 10x3/uL (4.8-10.8)
[2023-04-12 09:38] LABS: Mean Corpuscular Volume 85.1 fl (78.0-98.0)
[2023-04-12 09:57] LABS: Hemoglobin A1c 6.6 % (4.0-6.0)
[2023-04-12] MEDS ORDERED: HumaLOG 300 UNITS/3 ML VIAL SC PRN ×2 (10:37)
[2023-04-12 10:38] LABS: ALT (SGPT) 305 U/L (8-55); AST (SGOT) 64 U/L (5-34); Albumin 3.3 g/dL (3.4-4.8); Alkaline Phosphatase 144 U/L (40-110); BUN (Urea Nitrogen) 25 mg/dL (8.4-25.7); Bilirubin, Total 1.2 mg/dL (0.2-1.2); Calc. Creatinine Clearance 77 mL/min (70-130); Calcium 9.2 mg/dL (7.8-10.44); Carbon Dioxide 15 mmol/L (23-31); Chloride 109 mmol/L (98-107); Estimated GFR 58; Glucose 158 mg/dL (83-110); Potassium 4.5 mmol/L (3.5-5.1); Protein, Total 6.3 g/dL (5.8-8.1); Sodium 139 mmol/L (136-145)
[2023-04-12 11:46] VITALS: BP 142/89; TEMP 97.6
[2023-04-12 14:25] LABS: Anion Gap 19 mmol/L (10-20)
== END 2023-04-12 19:31 | disposition short-term general hospital (02) | DRG 564 ==
LOC: ERS 10:23 → IMCU/EMU 14:44 → 2NO 04-07 17:45 → T4-B 04-10 16:42
PROVIDERS: ADMIT Family Medicine; ATTEND Family Medicine
PROC: 3E03329 Introduction of Other Anti-infective into Peripheral Vein, Percutaneous Approach (ICD-10-PCS; principal; 2023-04-05)
PROC: 30233N1 Transfusion of Nonautologous Red Blood Cells into Peripheral Vein, Percutaneous Approach (ICD-10-PCS; 2023-04-05)
DX: T87.81 Dehiscence of amputation stump (principal); A41.9 Sepsis, unspecified organism; K72.00 Acute and subacute hepatic failure without coma; R57.8 Other shock; R65.20 Severe sepsis without septic shock; I13.0 Hypertensive heart and chronic kidney disease with heart failure and stage 1 through stage 4 chronic kidney disease, or unspecified chronic kidney disease; E87.20 Acidosis, unspecified; M86.8X7 Other osteomyelitis, ankle and foot; N17.9 Acute kidney failure, unspecified; I50.20 Unspecified systolic (congestive) heart failure; E11.22 Type 2 diabetes mellitus with diabetic chronic kidney disease; N18.30 Chronic kidney disease, stage 3 unspecified; I25.10 Atherosclerotic heart disease of native coronary artery without angina pectoris; I48.91 Unspecified atrial fibrillation; J44.9 Chronic obstructive pulmonary disease, unspecified; F17.210 Nicotine dependence, cigarettes, uncomplicated; E87.5 Hyperkalemia; D50.9 Iron deficiency anemia, unspecified; D63.1 Anemia in chronic kidney disease; E78.5 Hyperlipidemia, unspecified; F41.9 Anxiety disorder, unspecified; F15.10 Other stimulant abuse, uncomplicated; B19.20 Unspecified viral hepatitis C without hepatic coma; F32.A Depression, unspecified; E11.65 Type 2 diabetes mellitus with hyperglycemia; Y83.8 Other surgical procedures as the cause of abnormal reaction of the patient, or of later complication, without mention of misadventure at the time of the procedure; Z66 Do not resuscitate; Z95.1 Presence of aortocoronary bypass graft; Z98.890 Other specified postprocedural states; Z79.82 Long term (current) use of aspirin; Z79.51 Long term (current) use of inhaled steroids; Z79.84 Long term (current) use of oral hypoglycemic drugs; Z79.899 Other long term (current) drug therapy; Z89.422 Acquired absence of other left toe(s); Z89.421 Acquired absence of other right toe(s); Z88.8 Allergy status to other drugs, medicaments and biological substances
CPT/HCPCS: 36415; 36416; 36430; 70450; 71045; 74176; 76705; 80053; 80074; 80202; 80306; 80307; 81001; 82805; 83036; 83605; 83690; 83735; 85025; 85610; 85730; 86140; 86780; 86850; 86900; 86901; 87040; 87070; 87077; 87149; 87186; 87205; 87389; 87522; 93005; 93010; 94640; 94664; 96365; 96366; 96367; 96372; 96375; 97139; 99283; J0692; J1720; J1885; J1940; J2272; J2543; J3370; J3370-JW; J3490; J7050; J7070; J7620; J7999; P9016

== ENCOUNTER 2023-04-21 21:11 | Emergency (ER) | payer OTHER ==
[2023-04-21 22:05] LABS: #Eosinphils 0.3 thou/uL (0.0-0.7); #Monocytes 0.7 thou/uL (0.11-0.59); #Neutrophils 5.3 thou/uL (1.40-6.50); %Basophils 0.4 % (0.0-1.0); %Eosinophils 3.7 % (0.0-10.0); %Monocytes 9.6 % (0.0-10.0); Hemoglobin 7.4 g/dL (14.0-18.0); Mean Corpuscular HGB CONC 32.5 g/dL (32.0-36.0); Mean Corpuscular Hemoglobin 24.8 pg (27.0-31.0); Mean Corpuscular Volume 76.5 fl (78.0-98.0); Mean Platelet Volume 10.8 fL (7.4-10.4); Platelet Count 259 10x3/uL (130-400); RBC Distribution Width 18.6 % (11.5-14.5); Red Blood Cell (RBC) Count 2.98 mill/uL (4.70-6.10); White Blood Cell (WBC) Count 7.5 10x3/uL (4.8-10.8)
[2023-04-21 22:29] LABS: ALT (SGPT) 44 U/L (8-55); AST (SGOT) 22 U/L (5-34); Albumin 3.7 g/dL (3.4-4.8); Alkaline Phosphatase 124 U/L (40-110); Anion Gap 16 mmol/L (10-20); BUN (Urea Nitrogen) 26 mg/dL (8.4-25.7); Calc. Creatinine Clearance 0 mL/min (70-130); Calcium 9.3 mg/dL (7.8-10.44); Carbon Dioxide 22 mmol/L (23-31); Chloride 102 mmol/L (98-107); Estimated GFR 43; Globulin 2.6 g/dL (2.4-3.5); Glucose 133 mg/dL (83-110); Potassium 4.4 mmol/L (3.5-5.1); Protein, Total 6.3 g/dL (5.8-8.1); Sodium 136 mmol/L (136-145)
== END 2023-04-21 23:23 | disposition left against medical advice (07) ==
LOC: ERS 21:11
DX: D64.9 Anemia, unspecified (principal); I25.10 Atherosclerotic heart disease of native coronary artery without angina pectoris; I11.0 Hypertensive heart disease with heart failure; I50.9 Heart failure, unspecified; E11.9 Type 2 diabetes mellitus without complications; J44.9 Chronic obstructive pulmonary disease, unspecified
CPT/HCPCS: 71045; 80053; 83880; 84484; 85025; 93005; 94760

== ENCOUNTER 2023-04-25 05:10 | Emergency (ER) | payer OTHER ==
[2023-04-25] MEDS ORDERED: Piperacillin/Tazobactam 4.5 GM VIAL ONE (05:55)
[2023-04-25 05:59] LABS: #Eosinphils 0.3 thou/uL (0.0-0.7); #Monocytes 0.9 thou/uL (0.11-0.59); #Neutrophils 4.8 thou/uL (1.40-6.50); %Basophils 0.6 % (0.0-1.0); %Eosinophils 3.8 % (0.0-10.0); %Lymphocytes 16.2 % (21.0-51.0); %Monocytes 12.1 % (0.0-10.0); %Neutrophils 66.9 % (42.0-75.0); Hemoglobin 7.9 g/dL (14.0-18.0); Mean Corpuscular HGB CONC 31.3 g/dL (32.0-36.0); Mean Corpuscular Hemoglobin 24.4 pg (27.0-31.0); Mean Corpuscular Volume 77.8 fl (78.0-98.0); Mean Platelet Volume 11.4 fL (7.4-10.4); Platelet Count 349 10x3/uL (130-400); RBC Distribution Width 18.9 % (11.5-14.5); Red Blood Cell (RBC) Count 3.24 mill/uL (4.70-6.10); White Blood Cell (WBC) Count 7.1 10x3/uL (4.8-10.8)
[2023-04-25 06:23] LABS: ALT (SGPT) 33 U/L (8-55); AST (SGOT) 21 U/L (5-34); Albumin 3.9 g/dL (3.4-4.8); Alkaline Phosphatase 136 U/L (40-110); Anion Gap 17 mmol/L (10-20); BUN (Urea Nitrogen) 22 mg/dL (8.4-25.7); Bilirubin, Total 0.8 mg/dL (0.2-1.2); Calc. Creatinine Clearance 0 mL/min (70-130); Calcium 9.4 mg/dL (7.8-10.44); Carbon Dioxide 20 mmol/L (23-31); Chloride 105 mmol/L (98-107); Estimated GFR 52; Globulin 2.8 g/dL (2.4-3.5); Glucose 127 mg/dL (83-110); Potassium 4.3 mmol/L (3.5-5.1); Protein, Total 6.7 g/dL (5.8-8.1); Sodium 138 mmol/L (136-145)
[2023-04-25] MEDS ORDERED: Vancomycin 1 GM/200 ML (FROZEN) BAG ONE (06:51)
[2023-04-25 09:01] LABS: Lactic Acid 1.2 mmol/L (0.5-2.2)
[2023-04-25] MEDS ORDERED: Iopamidol-370 76% 500 ML MDV (1 ML CHARGE) ONE (10:39)
== END 2023-04-25 16:50 | disposition short-term general hospital (02) ==
LOC: ERS 05:10
DX: A41.9 Sepsis, unspecified organism (principal); M86.10 Other acute osteomyelitis, unspecified site; I25.10 Atherosclerotic heart disease of native coronary artery without angina pectoris; E11.51 Type 2 diabetes mellitus with diabetic peripheral angiopathy without gangrene; I11.0 Hypertensive heart disease with heart failure; I50.9 Heart failure, unspecified; J44.9 Chronic obstructive pulmonary disease, unspecified; I48.91 Unspecified atrial fibrillation
CPT/HCPCS: 71045; 73701; 80053; 82962; 83605; 83880; 85025; 87040; 93005; J3370; 36415; 36416; 96365; 96366; 96367; J2543; Q9967

== ENCOUNTER 2023-05-03 16:41 | Inpatient (IN) | payer OTHER, MEDICAID ==
[2023-05-03] MEDS ORDERED: Furosemide 40 MG/4 ML VIAL ONE (17:11)
[2023-05-03 17:23] LABS: #Basophils 0.1 thou/uL (0.0-0.2); #Eosinphils 0.3 thou/uL (0.0-0.7); #Neutrophils 6.1 thou/uL (1.40-6.50); %Basophils 0.7 % (0.0-1.0); %Eosinophils 3.1 % (0.0-10.0); %Lymphocytes 12.1 % (21.0-51.0); %Neutrophils 71.6 % (42.0-75.0); Hemoglobin 7.1 g/dL (14.0-18.0); Mean Corpuscular HGB CONC 31.7 g/dL (32.0-36.0); Mean Corpuscular Hemoglobin 23.7 pg (27.0-31.0); Mean Corpuscular Volume 74.7 fl (78.0-98.0); Mean Platelet Volume 10.8 fL (7.4-10.4); Platelet Count 424 10x3/uL (130-400); RBC Distribution Width 18.6 % (11.5-14.5); White Blood Cell (WBC) Count 8.5 10x3/uL (4.8-10.8)
[2023-05-03 17:49] LABS: ALT (SGPT) 17 U/L (8-55); AST (SGOT) 15 U/L (5-34); Albumin 3.4 g/dL (3.4-4.8); Alkaline Phosphatase 118 U/L (40-110); Anion Gap 15 mmol/L (10-20); BUN (Urea Nitrogen) 24 mg/dL (8.4-25.7); Bilirubin, Total 0.9 mg/dL (0.2-1.2); Calc. Creatinine Clearance 0 mL/min (70-130); Calcium 8.6 mg/dL (7.8-10.44); Carbon Dioxide 19 mmol/L (23-31); Chloride 105 mmol/L (98-107); Estimated GFR 42; Globulin 2.4 g/dL (2.4-3.5); Glucose 118 mg/dL (83-110); Protein, Total 5.8 g/dL (5.8-8.1); Sodium 135 mmol/L (136-145)
[2023-05-03 17:53] LABS: Anisocytosis SLIGHT = 6-15 cells HPF (0-5); Large Platelets 4.9 % (0-5); Platelet Adequacy Comment Platelets Normal; Polychromasia SLIGHT = 2-3 cells HPF (0-2); Smudge Cells 5.9 %
[2023-05-03 18:15] LABS: CKMB 2.7 ng/mL (0-6.6)
[2023-05-03 19:11] LABS: Bacteria/HPF None Seen HPF (None Seen); Bilirubin Negative (Negative); Blood, Urine Negative (Negative); CAUTI Indications for Culture Dysuria,urgency,freq; Clarity Clear (Clear); Glucose, Urine (Dipstick) Normal (Negative); Ketone, Urine Negative (Negative); Leukocyte Negative Leu/uL (Negative); Nitrite Negative (Negative); Protein, Urine (Dipstick) Negative (Neg-Trace); RBC/HPF None Seen HPF (0-3); Specific Gravity, Urine 1.008 (1.002-1.036); Squamous Epithelial 0-3 HPF (0-3); Urobilinogen Normal mg/dL (Less than 2); WBC/HPF 0-3 HPF (0-3)
[2023-05-03 19:14] LABS: Urine Culture Reflex No No
[2023-05-03 20:29] LABS: Lactic Acid 2.2 mmol/L (0.5-2.2)
[2023-05-03 20:38] LABS: Troponin I Less than 0.010 ng/mL (< 0.028)
[2023-05-03] MEDS ORDERED: Furosemide 40 MG/4 ML VIAL SLOW IVP SCH (20:45)
[2023-05-03] MEDS ORDERED: traMADol HCl 50 MG TAB PO SCH (21:00)
[2023-05-03] MEDS ORDERED: Acetaminophen 500 MG TAB PO SCH (21:00)
[2023-05-03] MEDS ORDERED: Piperacillin/Tazobactam 4.5 GM VIAL IVPB SCH (22:00)
[2023-05-03] MEDS ORDERED: Piperacillin/Tazobactam 3.375 GM in Sodium Chloride 0.9% 100 ML IVPB SCH (22:00)
[2023-05-03] MEDS ORDERED: Morphine 2 MG/ML VIAL SLOW IVP SCH (22:30)
[2023-05-03 23:26] LABS: Troponin I 0.015 ng/mL (< 0.028)
[2023-05-04] MEDS ORDERED: Dextrose 50% Abboject 50 ML SYRINGE SLOW IVP PRN (00:10)
[2023-05-04] MEDS ORDERED: Glucagon 1 MG/ML KIT IM PRN (00:10)
[2023-05-04] MEDS ORDERED: Dextrose 5% in Water 1,000 ML IV PRN (00:10)
[2023-05-04 05:10] LABS: #Basophils 0.1 thou/uL (0.0-0.2); #Eosinphils 0.4 thou/uL (0.0-0.7); #Monocytes 0.8 thou/uL (0.11-0.59); #Neutrophils 4.8 thou/uL (1.40-6.50); %Basophils 0.8 % (0.0-1.0); %Eosinophils 5.3 % (0.0-10.0); %Lymphocytes 14.9 % (21.0-51.0); %Monocytes 11.1 % (0.0-10.0); %Neutrophils 67.5 % (42.0-75.0); Hemoglobin 7.1 g/dL (14.0-18.0); Mean Corpuscular Hemoglobin 23.7 pg (27.0-31.0); Mean Corpuscular Volume 76.3 fl (78.0-98.0); Mean Platelet Volume 10.6 fL (7.4-10.4); Platelet Count 377 10x3/uL (130-400); RBC Distribution Width 18.9 % (11.5-14.5); White Blood Cell (WBC) Count 7.1 10x3/uL (4.8-10.8)
[2023-05-04] MEDS: traMADol HCl 50 MG TAB PO PRN ×3 (05:10→21:11)
[2023-05-04 05:38] LABS: Anion Gap 12 mmol/L (10-20); BUN (Urea Nitrogen) 24 mg/dL (8.4-25.7); Calc. Creatinine Clearance 69 mL/min (70-130); Calcium 8.8 mg/dL (7.8-10.44); Carbon Dioxide 23 mmol/L (23-31); Chloride 106 mmol/L (98-107); Estimated GFR 47; Glucose 95 mg/dL (83-110); Magnesium 1.7 mg/dL (1.6-2.6); Phosphorus 4.4 mg/dL (2.3-4.7); Potassium 3.9 mmol/L (3.5-5.1); Sodium 137 mmol/L (136-145)
[2023-05-04] MEDS ORDERED: Furosemide 40 MG/4 ML VIAL SLOW IVP SCH ×3 (06:00→09:00)
[2023-05-04] MEDS: Ipratropium/Albuterol 3 ML NEB NEB PRN (06:16)
[2023-05-04] MEDS: Mometasone 200 MCG/Formoterol 5 MCG 120 PUFF INHALER INH SCH ×2 (06:25→18:58)
[2023-05-04] MEDS ORDERED: busPIRone HCl 5 MG TAB PO SCH (07:00)
[2023-05-04] MEDS: Aspirin 81 mg Enteric Coated Tablet PO SCH (08:14)
[2023-05-04] MEDS: Metamucil PACK PO SCH (08:14)
[2023-05-04] MEDS: metFORMIN 500 MG TAB PO SCH ×2 (08:14→21:10)
[2023-05-04] MEDS: Acetaminophen 500 MG TAB PO SCH ×2 (08:14→21:10)
[2023-05-04] MEDS: Lidocaine 4% Patch TD SCH (08:14)
[2023-05-04] MEDS: Atorvastatin Calcium 40 MG TAB PO SCH (08:14)
[2023-05-04] MEDS ORDERED: Magnesium 2 GM/50 ML(in water) 1 GM in Premix Bag 1 BAG IVPB SCH (10:00)
[2023-05-04 16:18] LABS: Hemoglobin 7.5 g/dL (14.0-18.0)
[2023-05-04] MEDS ORDERED: Furosemide 20 MG/2 ML VIAL SLOW IVP SCH (18:00)
[2023-05-04] MEDS: Cefepime 2 GM in Sodium Chloride 0.9% 100 ML IVPB SCH (19:34)
[2023-05-04] MEDS: Senokot 8.6 MG TAB PO SCH (21:10)
[2023-05-04] MEDS: Melatonin 3 MG TAB PO SCH (21:11)
[2023-05-04] MEDS: busPIRone HCl 5 MG TAB PO SCH (21:12)
[2023-05-04] MEDS: VANCOMYCIN 2 GRAM/500 ML BAG 2 GM in Premix Bag 1 BAG IVPB SCH (21:12)
[2023-05-04] MEDS: Transdermal Patch Removal TOP SCH (21:41)
[2023-05-05 00:19] LABS: Hemoglobin 7.9 g/dL (14.0-18.0); Platelet Count 372 10x3/uL (130-400)
[2023-05-05] MEDS: traMADol HCl 50 MG TAB PO PRN ×3 (05:11→20:30)
[2023-05-05] MEDS: Cefepime 2 GM in Sodium Chloride 0.9% 100 ML IVPB SCH ×2 (05:12→18:42)
[2023-05-05 07:44] LABS: #Eosinphils 0.3 thou/uL (0.0-0.7); #Monocytes 0.7 thou/uL (0.11-0.59); #Neutrophils 4.9 thou/uL (1.40-6.50); %Basophils 0.6 % (0.0-1.0); %Eosinophils 4.8 % (0.0-10.0); %Lymphocytes 11.6 % (21.0-51.0); %Monocytes 10.1 % (0.0-10.0); %Neutrophils 72.5 % (42.0-75.0); Hemoglobin 8.6 g/dL (14.0-18.0); Mean Corpuscular HGB CONC 31.5 g/dL (32.0-36.0); Mean Corpuscular Hemoglobin 24.1 pg (27.0-31.0); Mean Corpuscular Volume 76.5 fl (78.0-98.0); Mean Platelet Volume 10.4 fL (7.4-10.4); Platelet Count 396 10x3/uL (130-400); RBC Distribution Width 18.5 % (11.5-14.5); Red Blood Cell (RBC) Count 3.57 mill/uL (4.70-6.10); White Blood Cell (WBC) Count 6.8 10x3/uL (4.8-10.8)
[2023-05-05 08:06] LABS: Anion Gap 11 mmol/L (10-20); BUN (Urea Nitrogen) 27 mg/dL (8.4-25.7); Calc. Creatinine Clearance 72 mL/min (70-130); Calcium 8.9 mg/dL (7.8-10.44); Carbon Dioxide 25 mmol/L (23-31); Chloride 106 mmol/L (98-107); Estimated GFR 50; Glucose 118 mg/dL (83-110); Potassium 4.3 mmol/L (3.5-5.1); Sodium 138 mmol/L (136-145)
[2023-05-05] MEDS: busPIRone HCl 5 MG TAB PO SCH ×2 (09:08→20:25)
[2023-05-05] MEDS: Atorvastatin Calcium 40 MG TAB PO SCH (09:09)
[2023-05-05] MEDS: metFORMIN 500 MG TAB PO SCH ×2 (09:09→20:25)
[2023-05-05] MEDS: Metamucil PACK PO SCH (09:09)
[2023-05-05] MEDS: Lidocaine 4% Patch TD SCH (09:10)
[2023-05-05] MEDS: Acetaminophen 500 MG TAB PO SCH ×2 (09:10→20:24)
[2023-05-05] MEDS: Aspirin 81 mg Enteric Coated Tablet PO SCH (09:10)
[2023-05-05] MEDS: Mometasone 200 MCG/Formoterol 5 MCG 120 PUFF INHALER INH SCH ×2 (10:41→19:10)
[2023-05-05] MEDS ORDERED: Furosemide 40 MG/4 ML VIAL SLOW IVP SCH (13:15)
[2023-05-05] MEDS ORDERED: Furosemide 20 MG/2 ML VIAL SLOW IVP SCH (15:15)
[2023-05-05 18:16] LABS: Phosphorus 4.2 mg/dL (2.3-4.7)
[2023-05-05] MEDS: VANCOMYCIN 2 GRAM/500 ML BAG 2 GM in Premix Bag 1 BAG IVPB SCH (20:25)
[2023-05-05] MEDS: Melatonin 3 MG TAB PO SCH (20:25)
[2023-05-05] MEDS: Transdermal Patch Removal TOP SCH (20:25)
[2023-05-05] MEDS: Senokot 8.6 MG TAB PO SCH (20:25)
[2023-05-06] MEDS: Cefepime 2 GM in Sodium Chloride 0.9% 100 ML IVPB SCH ×2 (04:31→18:34)
[2023-05-06] MEDS: traMADol HCl 50 MG TAB PO PRN ×3 (04:31→19:19)
[2023-05-06 05:47] LABS: #Basophils 0.1 thou/uL (0.0-0.2); #Eosinphils 0.4 thou/uL (0.0-0.7); #Monocytes 0.7 thou/uL (0.11-0.59); #Neutrophils 5.7 thou/uL (1.40-6.50); %Basophils 0.9 % (0.0-1.0); %Eosinophils 5.1 % (0.0-10.0); %Monocytes 9.3 % (0.0-10.0); %Neutrophils 72.2 % (42.0-75.0); Hemoglobin 8.9 g/dL (14.0-18.0); Mean Corpuscular HGB CONC 31.1 g/dL (32.0-36.0); Mean Corpuscular Hemoglobin 24.4 pg (27.0-31.0); Mean Corpuscular Volume 78.4 fl (78.0-98.0); Mean Platelet Volume 10.9 fL (7.4-10.4); Platelet Count 397 10x3/uL (130-400); Red Blood Cell (RBC) Count 3.65 mill/uL (4.70-6.10); White Blood Cell (WBC) Count 7.9 10x3/uL (4.8-10.8)
[2023-05-06 06:15] LABS: ALT (SGPT) 15 U/L (8-55); AST (SGOT) 23 U/L (5-34); Albumin 3.2 g/dL (3.4-4.8); Alkaline Phosphatase 113 U/L (40-110); Anion Gap 11 mmol/L (10-20); BUN (Urea Nitrogen) 32 mg/dL (8.4-25.7); Bilirubin, Total 0.8 mg/dL (0.2-1.2); Calc. Creatinine Clearance 77 mL/min (70-130); Calcium 8.6 mg/dL (7.8-10.44); Carbon Dioxide 23 mmol/L (23-31); Chloride 105 mmol/L (98-107); Estimated GFR 53; Globulin 2.6 g/dL (2.4-3.5); Glucose 115 mg/dL (83-110); Potassium 4.3 mmol/L (3.5-5.1); Protein, Total 5.8 g/dL (5.8-8.1); Sodium 135 mmol/L (136-145)
[2023-05-06] MEDS: Mometasone 200 MCG/Formoterol 5 MCG 120 PUFF INHALER INH SCH ×2 (07:42→18:32)
[2023-05-06] MEDS: Acetaminophen 500 MG TAB PO SCH ×2 (10:23→21:25)
[2023-05-06] MEDS: Metamucil PACK PO SCH (10:23)
[2023-05-06] MEDS: Atorvastatin Calcium 40 MG TAB PO SCH (10:23)
[2023-05-06] MEDS: metFORMIN 500 MG TAB PO SCH ×2 (10:24→21:25)
[2023-05-06] MEDS: Aspirin 81 mg Enteric Coated Tablet PO SCH (10:24)
[2023-05-06] MEDS: Furosemide 20 MG/2 ML VIAL SLOW IVP SCH ×3 (10:24→21:28)
[2023-05-06] MEDS: busPIRone HCl 5 MG TAB PO SCH ×2 (10:24→21:25)
[2023-05-06] MEDS: Lidocaine 4% Patch TD SCH (10:25)
[2023-05-06] MEDS: Albuterol 200 PUFF (6.7GM INHALER) INH PRN (12:52)
[2023-05-06] MEDS: hydrOXYzine 25 MG TAB PO PRN (19:41)
[2023-05-06] MEDS: Melatonin 3 MG TAB PO SCH (21:24)
[2023-05-06] MEDS: Senokot 8.6 MG TAB PO SCH (21:25)
[2023-05-06] MEDS: Transdermal Patch Removal TOP SCH (21:30)
[2023-05-06 21:44] LABS: Vancomycin, Trough 13.8 ug/mL
[2023-05-06] MEDS: VANCOMYCIN 2 GRAM/500 ML BAG 2 GM in Premix Bag 1 BAG IVPB SCH (22:50)
[2023-05-07] MEDS: traMADol HCl 50 MG TAB PO PRN ×5 (00:15→23:54)
[2023-05-07] MEDS: Cefepime 2 GM in Sodium Chloride 0.9% 100 ML IVPB SCH ×2 (06:10→16:44)
[2023-05-07] MEDS: hydrOXYzine 25 MG TAB PO PRN ×3 (06:33→20:54)
[2023-05-07 07:21] LABS: #Basophils 0.1 thou/uL (0.0-0.2); #Eosinphils 0.4 thou/uL (0.0-0.7); #Neutrophils 5.7 thou/uL (1.40-6.50); %Eosinophils 4.5 % (0.0-10.0); %Lymphocytes 14.3 % (21.0-51.0); %Monocytes 11.7 % (0.0-10.0); %Neutrophils 68.3 % (42.0-75.0); Hemoglobin 8.8 g/dL (14.0-18.0); Mean Corpuscular HGB CONC 30.3 g/dL (32.0-36.0); Mean Corpuscular Hemoglobin 23.8 pg (27.0-31.0); Mean Corpuscular Volume 78.4 fl (78.0-98.0); Mean Platelet Volume 10.7 fL (7.4-10.4); Platelet Count 425 10x3/uL (130-400); RBC Distribution Width 19.3 % (11.5-14.5); White Blood Cell (WBC) Count 8.4 10x3/uL (4.8-10.8)
[2023-05-07] MEDS: Mometasone 200 MCG/Formoterol 5 MCG 120 PUFF INHALER INH SCH ×2 (07:26→18:48)
[2023-05-07] MEDS: Albuterol 200 PUFF (6.7GM INHALER) INH PRN ×2 (07:26→15:14)
[2023-05-07 07:46] LABS: ALT (SGPT) 13 U/L (8-55); AST (SGOT) 16 U/L (5-34); Albumin 3.6 g/dL (3.4-4.8); Alkaline Phosphatase 124 U/L (40-110); Anion Gap 12 mmol/L (10-20); BUN (Urea Nitrogen) 32 mg/dL (8.4-25.7); Bilirubin, Total 0.7 mg/dL (0.2-1.2); Calc. Creatinine Clearance 91 mL/min (70-130); Carbon Dioxide 25 mmol/L (23-31); Chloride 103 mmol/L (98-107); Estimated GFR 65; Globulin 2.8 g/dL (2.4-3.5); Glucose 97 mg/dL (83-110); Potassium 4.3 mmol/L (3.5-5.1); Protein, Total 6.4 g/dL (5.8-8.1); Sodium 136 mmol/L (136-145)
[2023-05-07] MEDS ORDERED: Furosemide 40 MG TAB PO SCH ×2 (11:05→11:15)
[2023-05-07] MEDS: busPIRone HCl 5 MG TAB PO SCH ×2 (11:21→20:03)
[2023-05-07] MEDS: Lidocaine 4% Patch TD SCH (11:21)
[2023-05-07] MEDS: Acetaminophen 500 MG TAB PO SCH ×2 (11:22→20:02)
[2023-05-07] MEDS: Atorvastatin Calcium 40 MG TAB PO SCH (11:22)
[2023-05-07] MEDS: metFORMIN 500 MG TAB PO SCH ×2 (11:22→20:03)
[2023-05-07] MEDS: Aspirin 81 mg Enteric Coated Tablet PO SCH (11:22)
[2023-05-07] MEDS: Metamucil PACK PO SCH (11:24)
[2023-05-07] MEDS: Melatonin 3 MG TAB PO SCH (20:03)
[2023-05-07] MEDS: Furosemide 40 MG TAB PO SCH (20:03)
[2023-05-07] MEDS: Senokot 8.6 MG TAB PO SCH (20:04)
[2023-05-07] MEDS: Transdermal Patch Removal TOP SCH (20:55)
[2023-05-07] MEDS: VANCOMYCIN 2 GRAM/500 ML BAG 2 GM in Premix Bag 1 BAG IVPB SCH (22:31)
[2023-05-08] MEDS: hydrOXYzine 25 MG TAB PO PRN ×3 (02:42→20:27)
[2023-05-08 05:01] LABS: #Basophils 0.1 thou/uL (0.0-0.2); #Eosinphils 0.4 thou/uL (0.0-0.7); #Monocytes 0.7 thou/uL (0.11-0.59); #Neutrophils 4.4 thou/uL (1.40-6.50); %Basophils 1.1 % (0.0-1.0); %Eosinophils 6.3 % (0.0-10.0); %Lymphocytes 16.2 % (21.0-51.0); %Monocytes 10.1 % (0.0-10.0); %Neutrophils 65.7 % (42.0-75.0); Hemoglobin 8.7 g/dL (14.0-18.0); Mean Corpuscular HGB CONC 30.6 g/dL (32.0-36.0); Mean Corpuscular Volume 78.5 fl (78.0-98.0); Platelet Count 372 10x3/uL (130-400); RBC Distribution Width 19.8 % (11.5-14.5); Red Blood Cell (RBC) Count 3.62 mill/uL (4.70-6.10); White Blood Cell (WBC) Count 6.7 10x3/uL (4.8-10.8)
[2023-05-08] MEDS: traMADol HCl 50 MG TAB PO PRN ×3 (05:27→20:26)
[2023-05-08] MEDS: Cefepime 2 GM in Sodium Chloride 0.9% 100 ML IVPB SCH ×2 (05:27→17:45)
[2023-05-08 05:51] LABS: Anion Gap 13 mmol/L (10-20); BUN (Urea Nitrogen) 38 mg/dL (8.4-25.7); Calc. Creatinine Clearance 76 mL/min (70-130); Carbon Dioxide 25 mmol/L (23-31); Chloride 104 mmol/L (98-107); Potassium 4.4 mmol/L (3.5-5.1); Sodium 138 mmol/L (136-145)
[2023-05-08 05:52] LABS: AST (SGOT) 17 U/L (5-34); Albumin 3.5 g/dL (3.4-4.8); Alkaline Phosphatase 119 U/L (40-110); Bilirubin, Total 0.7 mg/dL (0.2-1.2); Calcium 9.2 mg/dL (7.8-10.44); Estimated GFR 53; Globulin 2.5 g/dL (2.4-3.5); Glucose 126 mg/dL (83-110)
[2023-05-08 05:53] LABS: ALT (SGPT) 13 U/L (8-55)
[2023-05-08] MEDS: Mometasone 200 MCG/Formoterol 5 MCG 120 PUFF INHALER INH SCH ×2 (07:34→19:03)
[2023-05-08] MEDS: Lidocaine 4% Patch TD SCH (08:22)
[2023-05-08] MEDS: busPIRone HCl 5 MG TAB PO SCH ×2 (08:22→20:27)
[2023-05-08] MEDS: Atorvastatin Calcium 40 MG TAB PO SCH (08:23)
[2023-05-08] MEDS: Furosemide 40 MG TAB PO SCH (08:23)
[2023-05-08] MEDS: Aspirin 81 mg Enteric Coated Tablet PO SCH (08:23)
[2023-05-08] MEDS: metFORMIN 500 MG TAB PO SCH ×2 (08:23→20:27)
[2023-05-08] MEDS: Metamucil PACK PO SCH (08:24)
[2023-05-08] MEDS: Acetaminophen 500 MG TAB PO SCH ×2 (10:24→20:26)
[2023-05-08 16:19] VITALS: BMI 30.9
[2023-05-08] MEDS: Melatonin 3 MG TAB PO SCH (20:27)
[2023-05-08] MEDS: Senokot 8.6 MG TAB PO SCH (20:27)
[2023-05-08 20:40] LABS: Vancomycin, Trough 12.9 ug/mL
[2023-05-08] MEDS: Transdermal Patch Removal TOP SCH (20:52)
[2023-05-08] MEDS: VANCOMYCIN 2 GRAM/500 ML BAG 2 GM in Premix Bag 1 BAG IVPB SCH (21:27)
[2023-05-08] MEDS ORDERED: Albuterol 200 PUFF (6.7GM INHALER) INH PRN (23:02)
[2023-05-09] MEDS: traMADol HCl 50 MG TAB PO PRN ×5 (03:23→21:22)
[2023-05-09 04:11] LABS: #Basophils 0.1 thou/uL (0.0-0.2); #Eosinphils 0.5 thou/uL (0.0-0.7); #Monocytes 0.7 thou/uL (0.11-0.59); #Neutrophils 4.5 thou/uL (1.40-6.50); %Basophils 0.9 % (0.0-1.0); %Eosinophils 7.3 % (0.0-10.0); %Lymphocytes 15.5 % (21.0-51.0); %Monocytes 9.8 % (0.0-10.0); %Neutrophils 66.2 % (42.0-75.0); Hemoglobin 8.8 g/dL (14.0-18.0); Mean Corpuscular HGB CONC 30.4 g/dL (32.0-36.0); Mean Corpuscular Hemoglobin 23.8 pg (27.0-31.0); Mean Corpuscular Volume 78.3 fl (78.0-98.0); Mean Platelet Volume 10.9 fL (7.4-10.4); Platelet Count 358 10x3/uL (130-400); RBC Distribution Width 19.9 % (11.5-14.5); Red Blood Cell (RBC) Count 3.69 mill/uL (4.70-6.10); White Blood Cell (WBC) Count 6.7 10x3/uL (4.8-10.8)
[2023-05-09 04:44] LABS: ALT (SGPT) 12 U/L (8-55); AST (SGOT) 18 U/L (5-34); Albumin 3.3 g/dL (3.4-4.8); Alkaline Phosphatase 108 U/L (40-110); Anion Gap 16 mmol/L (10-20); BUN (Urea Nitrogen) 35 mg/dL (8.4-25.7); Bilirubin, Total 0.7 mg/dL (0.2-1.2); Calc. Creatinine Clearance 86 mL/min (70-130); Calcium 9.3 mg/dL (7.8-10.44); Carbon Dioxide 20 mmol/L (23-31); Chloride 108 mmol/L (98-107); Estimated GFR 62; Globulin 2.7 g/dL (2.4-3.5); Glucose 113 mg/dL (83-110); Potassium 4.6 mmol/L (3.5-5.1); Sodium 139 mmol/L (136-145)
[2023-05-09] MEDS: Cefepime 2 GM in Sodium Chloride 0.9% 100 ML IVPB SCH ×2 (05:59→17:41)
[2023-05-09] MEDS: Mometasone 200 MCG/Formoterol 5 MCG 120 PUFF INHALER INH SCH ×2 (07:51→18:44)
[2023-05-09] MEDS: Ipratropium/Albuterol 3 ML NEB NEB PRN ×2 (07:58→16:15)
[2023-05-09] MEDS: busPIRone HCl 5 MG TAB PO SCH ×2 (08:08→21:22)
[2023-05-09] MEDS: Atorvastatin Calcium 40 MG TAB PO SCH (08:08)
[2023-05-09] MEDS: hydrOXYzine 25 MG TAB PO PRN ×2 (08:08→16:03)
[2023-05-09] MEDS: metFORMIN 500 MG TAB PO SCH ×2 (08:08→21:20)
[2023-05-09] MEDS: Acetaminophen 500 MG TAB PO SCH ×2 (08:09→21:20)
[2023-05-09] MEDS: Aspirin 81 mg Enteric Coated Tablet PO SCH (08:09)
[2023-05-09] MEDS: Metamucil PACK PO SCH (08:10)
[2023-05-09] MEDS: Lidocaine 4% Patch TD SCH (08:10)
[2023-05-09] MEDS: Vancomycin 1.5 GRAM/300 ML BAG 1.5 GM in Premix Bag 1 BAG IVPB SCH ×2 (08:28→21:20)
[2023-05-09] MEDS ORDERED: Fluticasone Propionate Nasal Spray 16 gm Bottle NASAL PRN (09:57)
[2023-05-09 18:04] LABS: Amphetamine Not Detected (NotDetected); Barbiturates Screen Not Detected (NotDetected); Benzodiazepine Screen Not Detected (NotDetected); Cocaine Metabolite Screen Not Detected (NotDetected); Methadone Not Detected (NotDetected); Methamphetamine Not Detected (NotDetected); Opiate Screen Not Detected (NotDetected); Oxycodone Screen Not Detected (NotDetected); Phencyclidine (PCP) Not Detected (NotDetected); THC/Cannabinoid Screen Not Detected (NotDetected); Tricyclic Screen Not Detected (NotDetected)
[2023-05-09 19:32] VITALS: BP 125/74; TEMP 97.4
[2023-05-09] MEDS: Senokot 8.6 MG TAB PO SCH (21:22)
[2023-05-09] MEDS: Melatonin 3 MG TAB PO SCH (21:22)
[2023-05-09] MEDS: Transdermal Patch Removal TOP SCH (21:31)
[2023-05-10] MEDS ORDERED: Polyethylene Glycol 3350 17 GM Packet PO SCH (09:45)
== END 2023-05-09 22:30 | disposition short-term general hospital (02) | DRG 291 ==
LOC: ERS 16:41 → 2NO 19:09 → OBSVTOIN 05-04 09:47
PROVIDERS: ADMIT Family Medicine; ATTEND Family Medicine
DX: I13.0 Hypertensive heart and chronic kidney disease with heart failure and stage 1 through stage 4 chronic kidney disease, or unspecified chronic kidney disease (principal); I50.23 Acute on chronic systolic (congestive) heart failure; M86.8X7 Other osteomyelitis, ankle and foot; N17.9 Acute kidney failure, unspecified; I25.10 Atherosclerotic heart disease of native coronary artery without angina pectoris; I48.91 Unspecified atrial fibrillation; J44.9 Chronic obstructive pulmonary disease, unspecified; N18.30 Chronic kidney disease, stage 3 unspecified; F17.210 Nicotine dependence, cigarettes, uncomplicated; D63.1 Anemia in chronic kidney disease; Z66 Do not resuscitate; T87.89 Other complications of amputation stump; D50.9 Iron deficiency anemia, unspecified; Y83.8 Other surgical procedures as the cause of abnormal reaction of the patient, or of later complication, without mention of misadventure at the time of the procedure; E11.22 Type 2 diabetes mellitus with diabetic chronic kidney disease; Z79.82 Long term (current) use of aspirin; Z79.899 Other long term (current) drug therapy; Z79.51 Long term (current) use of inhaled steroids; Z98.890 Other specified postprocedural states; Z79.84 Long term (current) use of oral hypoglycemic drugs; Z95.1 Presence of aortocoronary bypass graft
CPT/HCPCS: 36415; 36416; 36430; 71045; 80048; 80053; 80202; 80306; 81001; 82553; 83605; 83735; 83880; 84100; 84484; 85025; 85652; 86140; 86850; 86900; 86901; 93005; 94640; 96372; 96374; 96375; 96376; 97139; G0378; J0692; J1650; J1940; J2272; J3370; J3475; J3490; J7620; P9016

== ENCOUNTER 2023-06-18 10:57 | Inpatient (IN) | payer OTHER, MEDICAID ==
[2023-06-18 11:58] LABS: #Eosinphils 0.1 thou/uL (0.0-0.7); #Monocytes 0.8 thou/uL (0.11-0.59); %Basophils 0.4 % (0.0-1.0); %Eosinophils 1.9 % (0.0-10.0); %Lymphocytes 12.2 % (21.0-51.0); %Neutrophils 74.2 % (42.0-75.0); Hematocrit 34.2 % (42.0-52.0); Hemoglobin 10.6 g/dL (14.0-18.0); Mean Corpuscular Hemoglobin 24.5 pg (27.0-31.0); Platelet Count 274 10x3/uL (130-400); RBC Distribution Width 23.1 % (11.5-14.5); Red Blood Cell (RBC) Count 4.33 mill/uL (4.70-6.10); White Blood Cell (WBC) Count 6.8 10x3/uL (4.8-10.8)
[2023-06-18 12:20] LABS: Troponin I Less than 0.010 ng/mL (< 0.028)
[2023-06-18 12:23] LABS: Bacteria/HPF None Seen HPF (None Seen); Bilirubin Negative (Negative); Blood, Urine Negative (Negative); CAUTI Indications for Culture Pelvic or flank pain; Clarity Clear (Clear); Glucose, Urine (Dipstick) Normal (Negative); Ketone, Urine Negative (Negative); Leukocyte Negative Leu/uL (Negative); Nitrite Negative (Negative); Protein, Urine (Dipstick) 20 mg/dL (Neg-Trace); RBC/HPF 0-3 HPF (0-3); Specific Gravity, Urine 1.024 (1.002-1.036); Squamous Epithelial None Seen HPF (0-3); Urobilinogen Normal mg/dL (Less than 2); WBC/HPF 0-3 HPF (0-3); pH, Urine 5.5 (5.0-9.0)
[2023-06-18 12:25] LABS: Urine Culture Reflex No No
[2023-06-18 12:52] LABS: ALT (SGPT) 17 U/L (8-55); AST (SGOT) 20 U/L (5-34); Albumin 3.6 g/dL (3.4-4.8); Alkaline Phosphatase 162 U/L (40-110); Anion Gap 15 mmol/L (10-20); BUN (Urea Nitrogen) 21 mg/dL (8.4-25.7); Bilirubin, Total 0.9 mg/dL (0.2-1.2); Calc. Creatinine Clearance 0 mL/min (70-130); Calcium 9.2 mg/dL (7.8-10.44); Carbon Dioxide 22 mmol/L (23-31); Chloride 105 mmol/L (98-107); Estimated GFR 79; Globulin 2.7 g/dL (2.4-3.5); Glucose 116 mg/dL (83-110); Lipase 25 U/L (8-78); Magnesium 1.8 mg/dL (1.6-2.6); Potassium 4.7 mmol/L (3.5-5.1); Protein, Total 6.3 g/dL (5.8-8.1); Sodium 137 mmol/L (136-145)
[2023-06-18] MEDS ORDERED: Sterile Water 10 ML ONE ×2 (13:01→13:03)
[2023-06-18] MEDS ORDERED: Ziprasidone 20 MG VIAL ONE (13:01)
[2023-06-18 13:05] LABS: SARS-CoV-2 NAA Rapid Test DETECTED (NotDetected)
[2023-06-18] MEDS ORDERED: Cefepime 2 GM VIAL ONE (13:07)
[2023-06-18] MEDS ORDERED: Furosemide 40 MG/4 ML VIAL ONE (13:10)
[2023-06-18] MEDS ORDERED: Vancomycin 1.5 GRAM/300 ML BAG 1.5 GM in Premix Bag 1 BAG IVPB SCH (13:30)
[2023-06-18 15:01] LABS: Lactic Acid 2.4 mmol/L (0.5-2.2)
[2023-06-18] MEDS ORDERED: LORazepam 2 MG/ML SYR.(CARPUJECT) ONE (15:46)
[2023-06-18] MEDS ORDERED: Aspirin Chewable 81 MG TAB ONE (15:46)
[2023-06-18] MEDS ORDERED: Acetaminophen 325 MG Suppository ONE (15:55)
[2023-06-18] MEDS ORDERED: Aspirin 300 MG Suppository ONE ×2 (15:55)
[2023-06-18] MEDS ORDERED: Acetaminophen 325 MG TAB PO PRN (16:20)
[2023-06-18] MEDS ORDERED: Ondansetron ODT 4 MG TAB PO PRN (16:20)
[2023-06-18] MEDS ORDERED: Calcium Carbonate 500 MG ChewTAB PO PRN (16:20)
[2023-06-18] MEDS ORDERED: Ondansetron PF 4 MG/2 ML Vial IVP PRN (16:20)
[2023-06-18] MEDS ORDERED: Acetaminophen 650 MG Suppository PR PRN (16:20)
[2023-06-18] MEDS ORDERED: Ipratropium/Albuterol 3 ML NEB NEB PRN (16:34)
[2023-06-18] MEDS ORDERED: Albuterol 200 PUFF (6.7GM INHALER) INH PRN (16:34)
[2023-06-18 17:37] LABS: Troponin I Less than 0.010 ng/mL (< 0.028)
[2023-06-18] MEDS ORDERED: Dextrose 50% Abboject 50 ML SYRINGE SLOW IVP PRN (20:26)
[2023-06-18] MEDS ORDERED: Glucagon 1 MG/ML KIT IM PRN (20:26)
[2023-06-18] MEDS ORDERED: Dextrose 5% in Water 1,000 ML IV PRN (20:26)
[2023-06-18] MEDS ORDERED: HumaLOG 300 UNITS/3 ML VIAL SC PRN ×2 (20:26)
[2023-06-18] MEDS ORDERED: Acetaminophen 500 MG TAB PO SCH (21:00)
[2023-06-18] MEDS: hydrOXYzine 25 MG TAB PO SCH ×2 (21:10→22:06)
[2023-06-18] MEDS: Melatonin 3 MG TAB PO SCH ×2 (22:06→22:11)
[2023-06-18] MEDS: busPIRone HCl 5 MG TAB PO SCH ×2 (22:08→22:10)
[2023-06-18] MEDS: traMADol HCl 50 MG TAB PO PRN (22:09)
[2023-06-18] MEDS: Mometasone 200 MCG/Formoterol 5 MCG 120 PUFF INHALER INH SCH (22:09)
[2023-06-18] MEDS: metFORMIN 500 MG TAB PO SCH ×2 (22:11→22:12)
[2023-06-18] MEDS: NIRMATRELVIR 150 MG/RITONAVIR 100 MG PO SCH (22:12)
[2023-06-19] MEDS: hydrOXYzine 25 MG TAB PO SCH ×2 (03:27→08:09)
[2023-06-19 03:55] LABS: #Basophils 0.1 thou/uL (0.0-0.2); #Eosinphils 0.2 thou/uL (0.0-0.7); #Monocytes 0.7 thou/uL (0.11-0.59); #Neutrophils 5.8 thou/uL (1.40-6.50); %Basophils 0.7 % (0.0-1.0); %Lymphocytes 10.8 % (21.0-51.0); %Neutrophils 77.1 % (42.0-75.0); Hematocrit 33.8 % (42.0-52.0); Hemoglobin 10.4 g/dL (14.0-18.0); Mean Corpuscular HGB CONC 30.8 g/dL (32.0-36.0); Mean Corpuscular Hemoglobin 23.7 pg (27.0-31.0); Mean Platelet Volume 12.2 fL (7.4-10.4); Platelet Count 284 10x3/uL (130-400); RBC Distribution Width 23.1 % (11.5-14.5); Red Blood Cell (RBC) Count 4.39 mill/uL (4.70-6.10); White Blood Cell (WBC) Count 7.5 10x3/uL (4.8-10.8)
[2023-06-19 04:19] LABS: Anion Gap 11 mmol/L (10-20); BUN (Urea Nitrogen) 20 mg/dL (8.4-25.7); Calc. Creatinine Clearance 106 mL/min (70-130); Calcium 9.2 mg/dL (7.8-10.44); Carbon Dioxide 26 mmol/L (23-31); Chloride 104 mmol/L (98-107); Estimated GFR 86; Glucose 103 mg/dL (83-110); Potassium 4.4 mmol/L (3.5-5.1); Sodium 137 mmol/L (136-145)
[2023-06-19] MEDS: traMADol HCl 50 MG TAB PO PRN ×3 (04:31→21:51)
[2023-06-19] MEDS: metFORMIN 500 MG TAB PO SCH ×2 (08:09→20:01)
[2023-06-19] MEDS: Mometasone 200 MCG/Formoterol 5 MCG 120 PUFF INHALER INH SCH ×2 (08:09→18:26)
[2023-06-19] MEDS: Aspirin 81 mg Enteric Coated Tablet PO SCH (08:09)
[2023-06-19] MEDS: Furosemide 20 MG TAB PO SCH (08:09)
[2023-06-19] MEDS: Metamucil PACK PO SCH (08:10)
[2023-06-19] MEDS ORDERED: Iopamidol 370 76% 100 ML VIAL ONE (09:58)
[2023-06-19] MEDS ORDERED: dilTIAZem 125 MG in Sodium Chloride 0.9% 100 ML IVPB SCH (10:00)
[2023-06-19] MEDS ORDERED: dilTIAZem 25 MG/5 ML VIAL SLOW IVP SCH (10:00)
[2023-06-19] MEDS: NIRMATRELVIR 150 MG/RITONAVIR 100 MG PO SCH ×2 (11:24→20:02)
[2023-06-19] MEDS: Melatonin 3 MG TAB PO SCH (20:00)
[2023-06-19] MEDS: busPIRone HCl 5 MG TAB PO SCH (20:00)
[2023-06-19] MEDS: QUEtiapine 25 MG TAB PO SCH (20:00)
[2023-06-19] MEDS ORDERED: Atorvastatin Calcium 40 MG TAB PO SCH (21:00)
[2023-06-19] MEDS: hydrOXYzine 25 MG TAB PO PRN (22:11)
[2023-06-20] MEDS: hydrOXYzine 25 MG TAB PO PRN ×3 (06:19→21:02)
[2023-06-20] MEDS: traMADol HCl 50 MG TAB PO PRN ×3 (06:19→19:53)
[2023-06-20] MEDS: Aspirin 81 mg Enteric Coated Tablet PO SCH (09:34)
[2023-06-20] MEDS: Furosemide 20 MG TAB PO SCH (09:34)
[2023-06-20] MEDS: Mometasone 200 MCG/Formoterol 5 MCG 120 PUFF INHALER INH SCH ×2 (09:34→21:55)
[2023-06-20] MEDS: metFORMIN 500 MG TAB PO SCH ×2 (09:34→19:54)
[2023-06-20] MEDS: Metamucil PACK PO SCH (09:35)
[2023-06-20] MEDS: NIRMATRELVIR 150 MG/RITONAVIR 100 MG PO SCH ×2 (09:46→21:06)
[2023-06-20 14:36] LABS: ALT (SGPT) 13 U/L (8-55); AST (SGOT) 15 U/L (5-34); Albumin 3.1 g/dL (3.4-4.8); Alkaline Phosphatase 138 U/L (40-110); Anion Gap 13 mmol/L (10-20); BUN (Urea Nitrogen) 24 mg/dL (8.4-25.7); Bilirubin, Total 0.9 mg/dL (0.2-1.2); Calc. Creatinine Clearance 101 mL/min (70-130); Calcium 8.7 mg/dL (7.8-10.44); Carbon Dioxide 25 mmol/L (23-31); Chloride 105 mmol/L (98-107); Estimated GFR 81; Globulin 2.4 g/dL (2.4-3.5); Glucose 112 mg/dL (83-110); Potassium 4.5 mmol/L (3.5-5.1); Protein, Total 5.5 g/dL (5.8-8.1); Sodium 138 mmol/L (136-145)
[2023-06-20] MEDS ORDERED: VANCOMYCIN 2 GRAM/500 ML BAG 2 GM in Premix Bag 1 BAG IVPB SCH (15:45)
[2023-06-20] MEDS ORDERED: Piperacillin/Tazobactam 3.375 GM in Sodium Chloride 0.9% 100 ML IVPB SCH ×2 (15:45→18:00)
[2023-06-20] MEDS: Piperacillin/Tazobactam 3.375 GM in Sodium Chloride 0.9% 100 ML IVPB SCH (19:52)
[2023-06-20] MEDS: QUEtiapine 25 MG TAB PO SCH (19:52)
[2023-06-20] MEDS: busPIRone HCl 5 MG TAB PO SCH (19:53)
[2023-06-20] MEDS: Melatonin 3 MG TAB PO SCH (20:03)
[2023-06-21] MEDS: traMADol HCl 50 MG TAB PO PRN ×3 (01:11→13:42)
[2023-06-21] MEDS ORDERED: Ketorolac Tromethamine 30 MG/ML VIAL IVP SCH (02:30)
[2023-06-21] MEDS: Piperacillin/Tazobactam 3.375 GM in Sodium Chloride 0.9% 100 ML IVPB SCH ×3 (03:49→20:42)
[2023-06-21] MEDS: Mometasone 200 MCG/Formoterol 5 MCG 120 PUFF INHALER INH SCH ×2 (06:30→16:39)
[2023-06-21] MEDS: metFORMIN 500 MG TAB PO SCH ×2 (07:48→20:43)
[2023-06-21] MEDS: VANCOMYCIN 1.25 GM/250 ML BAG 1.25 GM in Premix Bag 1 BAG IVPB SCH ×2 (07:48→17:14)
[2023-06-21] MEDS: Metamucil PACK PO SCH (07:48)
[2023-06-21] MEDS: Aspirin 81 mg Enteric Coated Tablet PO SCH (07:49)
[2023-06-21] MEDS: Furosemide 20 MG TAB PO SCH (07:49)
[2023-06-21] MEDS: NIRMATRELVIR 150 MG/RITONAVIR 100 MG PO SCH ×2 (07:50→20:48)
[2023-06-21] MEDS: hydrOXYzine 25 MG TAB PO PRN ×2 (07:57→16:39)
[2023-06-21 10:27] LABS: #Eosinphils 0.2 thou/uL (0.0-0.7); #Monocytes 0.6 thou/uL (0.11-0.59); #Neutrophils 4.8 thou/uL (1.40-6.50); %Basophils 0.6 % (0.0-1.0); %Eosinophils 3.4 % (0.0-10.0); %Monocytes 9.4 % (0.0-10.0); Hematocrit 32.7 % (42.0-52.0); Hemoglobin 9.7 g/dL (14.0-18.0); Mean Corpuscular HGB CONC 29.7 g/dL (32.0-36.0); Mean Corpuscular Hemoglobin 24.5 pg (27.0-31.0); Mean Corpuscular Volume 82.6 fl (78.0-98.0); Mean Platelet Volume 11.5 fL (7.4-10.4); Platelet Count 244 10x3/uL (130-400); RBC Distribution Width 22.9 % (11.5-14.5); Red Blood Cell (RBC) Count 3.96 mill/uL (4.70-6.10); White Blood Cell (WBC) Count 6.5 10x3/uL (4.8-10.8)
[2023-06-21 10:38] LABS: ALT (SGPT) 13 U/L (8-55); AST (SGOT) 18 U/L (5-34); Albumin 3.3 g/dL (3.4-4.8); Alkaline Phosphatase 136 U/L (40-110); Anion Gap 15 mmol/L (10-20); BUN (Urea Nitrogen) 26 mg/dL (8.4-25.7); Bilirubin, Total 0.8 mg/dL (0.2-1.2); Calc. Creatinine Clearance 86 mL/min (70-130); Calcium 8.9 mg/dL (7.8-10.44); Carbon Dioxide 21 mmol/L (23-31); Chloride 105 mmol/L (98-107); Estimated GFR 67; Globulin 2.8 g/dL (2.4-3.5); Glucose 95 mg/dL (83-110); Potassium 4.6 mmol/L (3.5-5.1); Protein, Total 6.1 g/dL (5.8-8.1); Sodium 136 mmol/L (136-145)
[2023-06-21] MEDS: Ibuprofen 600 MG TAB PO PRN (11:52)
[2023-06-21] MEDS: Acetaminophen 500 MG TAB PO SCH ×2 (13:42→22:50)
[2023-06-21] MEDS: busPIRone HCl 5 MG TAB PO SCH (20:42)
[2023-06-21] MEDS: Melatonin 3 MG TAB PO SCH (20:43)
[2023-06-21] MEDS: QUEtiapine 25 MG TAB PO SCH (20:43)
[2023-06-22] MEDS: Piperacillin/Tazobactam 3.375 GM in Sodium Chloride 0.9% 100 ML IVPB SCH (03:41)
[2023-06-22 05:20] LABS: #Eosinphils 0.2 thou/uL (0.0-0.7); #Monocytes 0.5 thou/uL (0.11-0.59); #Neutrophils 4.2 thou/uL (1.40-6.50); %Basophils 0.7 % (0.0-1.0); %Eosinophils 3.2 % (0.0-10.0); %Lymphocytes 13.3 % (21.0-51.0); %Monocytes 8.4 % (0.0-10.0); %Neutrophils 73.7 % (42.0-75.0); Hematocrit 31.3 % (42.0-52.0); Hemoglobin 9.6 g/dL (14.0-18.0); Mean Corpuscular HGB CONC 30.7 g/dL (32.0-36.0); Mean Corpuscular Hemoglobin 24.1 pg (27.0-31.0); Mean Platelet Volume 11.7 fL (7.4-10.4); Platelet Count 249 10x3/uL (130-400); RBC Distribution Width 22.6 % (11.5-14.5); Red Blood Cell (RBC) Count 3.99 mill/uL (4.70-6.10); White Blood Cell (WBC) Count 5.7 10x3/uL (4.8-10.8)
[2023-06-22] MEDS: Mometasone 200 MCG/Formoterol 5 MCG 120 PUFF INHALER INH SCH ×2 (05:23→17:51)
[2023-06-22 05:28] LABS: Mean Corpuscular Volume 78.4 fl (78.0-98.0)
[2023-06-22 05:48] LABS: ALT (SGPT) 11 U/L (8-55); AST (SGOT) 13 U/L (5-34); Albumin 3.2 g/dL (3.4-4.8); Alkaline Phosphatase 121 U/L (40-110); Anion Gap 13 mmol/L (10-20); BUN (Urea Nitrogen) 28 mg/dL (8.4-25.7); Calc. Creatinine Clearance 85 mL/min (70-130); Calcium 8.7 mg/dL (7.8-10.44); Carbon Dioxide 24 mmol/L (23-31); Chloride 106 mmol/L (98-107); Estimated GFR 65; Globulin 2.5 g/dL (2.4-3.5); Glucose 88 mg/dL (83-110); Potassium 4.4 mmol/L (3.5-5.1); Protein, Total 5.7 g/dL (5.8-8.1); Sodium 139 mmol/L (136-145)
[2023-06-22 05:49] LABS: Vancomycin, Trough 25.2 ug/mL
[2023-06-22] MEDS: VANCOMYCIN 1.25 GM/250 ML BAG 1.25 GM in Premix Bag 1 BAG IVPB SCH (06:19)
[2023-06-22] MEDS: Acetaminophen 500 MG TAB PO SCH ×3 (06:37→20:59)
[2023-06-22] MEDS: traMADol HCl 50 MG TAB PO PRN ×2 (08:41→23:42)
[2023-06-22] MEDS: Aspirin 81 mg Enteric Coated Tablet PO SCH (08:41)
[2023-06-22] MEDS: Furosemide 20 MG TAB PO SCH (08:41)
[2023-06-22] MEDS: metFORMIN 500 MG TAB PO SCH ×2 (08:41→20:52)
[2023-06-22] MEDS: hydrOXYzine 25 MG TAB PO PRN ×2 (08:42→20:52)
[2023-06-22] MEDS: NIRMATRELVIR 150 MG/RITONAVIR 100 MG PO SCH ×2 (08:42→20:58)
[2023-06-22] MEDS: Metamucil PACK PO SCH (08:43)
[2023-06-22] MEDS ORDERED: Vancomycin 1 GM in Premix Bag 1 BAG IVPB SCH (09:00)
[2023-06-22] MEDS: Ibuprofen 600 MG TAB PO PRN (11:49)
[2023-06-22] MEDS: Melatonin 3 MG TAB PO SCH (20:52)
[2023-06-22] MEDS: QUEtiapine 25 MG TAB PO SCH (20:52)
[2023-06-22] MEDS: busPIRone HCl 5 MG TAB PO SCH (20:53)
[2023-06-23] MEDS: Ibuprofen 600 MG TAB PO PRN ×2 (01:41→11:32)
[2023-06-23] MEDS ORDERED: traMADol HCl 50 MG TAB PO SCH (02:45)
[2023-06-23] MEDS: hydrOXYzine 25 MG TAB PO PRN ×2 (05:26→11:54)
[2023-06-23] MEDS: Acetaminophen 500 MG TAB PO SCH ×3 (05:26→21:06)
[2023-06-23] MEDS: Mometasone 200 MCG/Formoterol 5 MCG 120 PUFF INHALER INH SCH ×2 (05:37→17:49)
[2023-06-23] MEDS: metFORMIN 500 MG TAB PO SCH ×2 (08:11→21:08)
[2023-06-23] MEDS: Furosemide 20 MG TAB PO SCH (08:11)
[2023-06-23] MEDS: Aspirin 81 mg Enteric Coated Tablet PO SCH (08:11)
[2023-06-23] MEDS: Metamucil PACK PO SCH (08:11)
[2023-06-23] MEDS: NIRMATRELVIR 150 MG/RITONAVIR 100 MG PO SCH (08:14)
[2023-06-23] MEDS: traMADol HCl 50 MG TAB PO PRN ×2 (08:14→15:25)
[2023-06-23 08:18] LABS: #Basophils 0.1 thou/uL (0.0-0.2); #Eosinphils 0.1 thou/uL (0.0-0.7); #Monocytes 0.5 thou/uL (0.11-0.59); #Neutrophils 5.2 thou/uL (1.40-6.50); %Basophils 0.7 % (0.0-1.0); %Eosinophils 1.6 % (0.0-10.0); %Lymphocytes 12.8 % (21.0-51.0); %Monocytes 7.6 % (0.0-10.0); %Neutrophils 76.6 % (42.0-75.0); Hematocrit 32.6 % (42.0-52.0); Hemoglobin 10.2 g/dL (14.0-18.0); Mean Corpuscular HGB CONC 31.3 g/dL (32.0-36.0); Mean Corpuscular Hemoglobin 24.5 pg (27.0-31.0); Mean Corpuscular Volume 78.4 fl (78.0-98.0); Platelet Count 147 10x3/uL (130-400); RBC Distribution Width 23.2 % (11.5-14.5); Red Blood Cell (RBC) Count 4.16 mill/uL (4.70-6.10); White Blood Cell (WBC) Count 6.8 10x3/uL (4.8-10.8)
[2023-06-23] MEDS: Melatonin 3 MG TAB PO SCH (21:07)
[2023-06-23] MEDS: busPIRone HCl 5 MG TAB PO SCH (21:07)
[2023-06-23] MEDS: QUEtiapine 25 MG TAB PO SCH (21:07)
[2023-06-24] MEDS: Acetaminophen 500 MG TAB PO SCH ×2 (05:39→13:22)
[2023-06-24 05:57] VITALS: BMI 31.9
[2023-06-24] MEDS: Mometasone 200 MCG/Formoterol 5 MCG 120 PUFF INHALER INH SCH ×2 (06:04→17:50)
[2023-06-24] MEDS: traMADol HCl 50 MG TAB PO PRN (06:40)
[2023-06-24] MEDS: hydrOXYzine 25 MG TAB PO PRN ×2 (06:40→13:22)
[2023-06-24 06:41] LABS: #Basophils 0.1 thou/uL (0.0-0.2); #Eosinphils 0.1 thou/uL (0.0-0.7); #Monocytes 0.6 thou/uL (0.11-0.59); #Neutrophils 6.7 thou/uL (1.40-6.50); %Basophils 0.6 % (0.0-1.0); %Eosinophils 1.4 % (0.0-10.0); %Lymphocytes 10.1 % (21.0-51.0); %Neutrophils 80.5 % (42.0-75.0); Hematocrit 33.7 % (42.0-52.0); Hemoglobin 9.9 g/dL (14.0-18.0); Mean Corpuscular HGB CONC 29.4 g/dL (32.0-36.0); Mean Corpuscular Hemoglobin 23.7 pg (27.0-31.0); Platelet Count 176 10x3/uL (130-400); RBC Distribution Width 23.1 % (11.5-14.5); Red Blood Cell (RBC) Count 4.17 mill/uL (4.70-6.10); White Blood Cell (WBC) Count 8.3 10x3/uL (4.8-10.8)
[2023-06-24 06:56] LABS: Mean Corpuscular Volume 80.8 fl (78.0-98.0)
[2023-06-24] MEDS: metFORMIN 500 MG TAB PO SCH (08:13)
[2023-06-24] MEDS: Aspirin 81 mg Enteric Coated Tablet PO SCH (08:13)
[2023-06-24] MEDS: Furosemide 20 MG TAB PO SCH ×2 (08:13→08:22)
[2023-06-24] MEDS: Metamucil PACK PO SCH (08:14)
[2023-06-24] MEDS: Ibuprofen 600 MG TAB PO PRN (09:15)
[2023-06-24] MEDS ORDERED: NIRMATRELVIR 150 MG/RITONAVIR 100 MG PO SCH (11:30)
[2023-06-24 12:30] VITALS: TEMP 97.5
[2023-06-24] MEDS ORDERED: busPIRone HCl 5 MG TAB PO SCH ×2 (12:31→21:00)
[2023-06-24 17:58] VITALS: BP 134/88
[2023-06-24] MEDS ORDERED: QUEtiapine 25 MG TAB PO SCH (21:00)
[2023-06-24] MEDS ORDERED: hydrOXYzine 25 MG TAB PO SCH (22:00)
[2023-06-25] MEDS ORDERED: busPIRone HCl 10 MG TAB PO SCH (21:00)
[2023-06-25] MEDS ORDERED: Atorvastatin Calcium 40 MG TAB PO SCH (21:00)
== END 2023-06-24 18:29 | disposition left against medical advice (07) | DRG 177 ==
LOC: ERS 10:57 → 2NO 15:52 → OBSVTOIN 06-19 12:58 → T4-B 06-20 15:19
PROVIDERS: ADMIT Family Medicine; ATTEND Family Medicine
DX: U07.1 COVID-19 (principal); G93.41 Metabolic encephalopathy; I50.33 Acute on chronic diastolic (congestive) heart failure; I13.0 Hypertensive heart and chronic kidney disease with heart failure and stage 1 through stage 4 chronic kidney disease, or unspecified chronic kidney disease; M86.662 Other chronic osteomyelitis, left tibia and fibula; N18.31 Chronic kidney disease, stage 3a; E11.22 Type 2 diabetes mellitus with diabetic chronic kidney disease; I48.91 Unspecified atrial fibrillation; J44.9 Chronic obstructive pulmonary disease, unspecified; I25.10 Atherosclerotic heart disease of native coronary artery without angina pectoris; R45.1 Restlessness and agitation; F15.10 Other stimulant abuse, uncomplicated; E11.69 Type 2 diabetes mellitus with other specified complication; D50.9 Iron deficiency anemia, unspecified; D63.1 Anemia in chronic kidney disease; E03.9 Hypothyroidism, unspecified; M10.9 Gout, unspecified; Z82.49 Family history of ischemic heart disease and other diseases of the circulatory system; Z79.84 Long term (current) use of oral hypoglycemic drugs; Z79.899 Other long term (current) drug therapy; Z79.82 Long term (current) use of aspirin; Z95.1 Presence of aortocoronary bypass graft; Z89.432 Acquired absence of left foot
CPT/HCPCS: 36415; 36416; 71045; 71275; 80048; 80053; 80202; 81001; 83605; 83690; 83735; 83880; 84443; 84484; 85025; 87040; 87086; 93005; 96365; 96367; 96372; 96375; 97139; G0378; J0692; J1650; J1885; J1940; J2060; J2543; J3370; J3370-JW; J3486; J3490; Q9967

== ENCOUNTER 2023-06-25 13:00 | Emergency (ER) | payer OTHER, MEDICAID ==
[2023-06-25] MEDS ORDERED: Ondansetron PF 4 MG/2 ML Vial ONE (14:36)
[2023-06-25] MEDS ORDERED: Morphine 4 MG/ML VIAL ONE ×3 (14:36→15:32)
== END 2023-06-25 16:45 | disposition home or self-care (01) ==
LOC: ERS 13:00
DX: S91.302A Unspecified open wound, left foot, initial encounter (principal); I25.10 Atherosclerotic heart disease of native coronary artery without angina pectoris; J44.9 Chronic obstructive pulmonary disease, unspecified; E03.9 Hypothyroidism, unspecified; K21.9 Gastro-esophageal reflux disease without esophagitis; E11.22 Type 2 diabetes mellitus with diabetic chronic kidney disease; N18.31 Chronic kidney disease, stage 3a; I13.0 Hypertensive heart and chronic kidney disease with heart failure and stage 1 through stage 4 chronic kidney disease, or unspecified chronic kidney disease; I50.9 Heart failure, unspecified; F17.210 Nicotine dependence, cigarettes, uncomplicated; W18.30XA Fall on same level, unspecified, initial encounter; Y92.096 Garden or yard of other non-institutional residence as the place of occurrence of the external cause
CPT/HCPCS: 99282; J2270; J2405

== ENCOUNTER 2023-07-02 10:23 | Inpatient (IN) | payer OTHER, MEDICAID ==
[2023-07-02] MEDS ORDERED: Cefepime 2 GM VIAL ONE (11:24)
[2023-07-02] MEDS ORDERED: Ipratropium/Albuterol 3 ML NEB ONE (11:37)
[2023-07-02 11:58] LABS: #Monocytes 0.8 thou/uL (0.11-0.59); #Neutrophils 8.2 thou/uL (1.40-6.50); %Basophils 0.2 % (0.0-1.0); %Eosinophils 0.2 % (0.0-10.0); %Lymphocytes 7.4 % (21.0-51.0); %Monocytes 8.4 % (0.0-10.0); %Neutrophils 83.3 % (42.0-75.0); Hematocrit 28.9 % (42.0-52.0); Hemoglobin 9.3 g/dL (14.0-18.0); Mean Corpuscular HGB CONC 32.2 g/dL (32.0-36.0); Mean Corpuscular Hemoglobin 24.7 pg (27.0-31.0); Mean Corpuscular Volume 76.9 fl (78.0-98.0); Mean Platelet Volume 11.4 fL (7.4-10.4); Platelet Count 341 10x3/uL (130-400); RBC Distribution Width 23.7 % (11.5-14.5); Red Blood Cell (RBC) Count 3.76 mill/uL (4.70-6.10); White Blood Cell (WBC) Count 9.9 10x3/uL (4.8-10.8)
[2023-07-02 12:04] LABS: ALT (SGPT) 57 U/L (8-55); AST (SGOT) 46 U/L (5-34); Albumin 3.7 g/dL (3.4-4.8); Alkaline Phosphatase 150 U/L (40-110); Anion Gap 18 mmol/L (10-20); BUN (Urea Nitrogen) 38 mg/dL (8.4-25.7); Bilirubin, Total 2.3 mg/dL (0.2-1.2); CRP (Inflammatory) 5.23 mg/dL (= or < 0.5); Calc. Creatinine Clearance 0 mL/min (70-130); Calcium 9.3 mg/dL (7.8-10.44); Carbon Dioxide 20 mmol/L (23-31); Chloride 98 mmol/L (98-107); Estimated GFR 48; Globulin 2.8 g/dL (2.4-3.5); Glucose 152 mg/dL (83-110); Potassium 4.4 mmol/L (3.5-5.1); Protein, Total 6.5 g/dL (5.8-8.1); Sodium 132 mmol/L (136-145)
[2023-07-02 12:08] LABS: Troponin I 0.014 ng/mL (< 0.028)
[2023-07-02] MEDS ORDERED: VANCOMYCIN 2 GRAM/500 ML BAG 2 GM in Premix Bag 1 BAG IVPB SCH (13:00)
[2023-07-02] MEDS ORDERED: Furosemide 40 MG/4 ML VIAL ONE (13:09)
[2023-07-02 14:07] LABS: Actual Bicarbonate (HCO3v) 19.3 mEq/L (22-28); Calcium, Ionized (venous) 1.04 mmol/L (1.16-1.32); Chloride (VBG) 101 mmol/L (98-106); Hematocrit-VBG 31 % (42.0-52.0); Hemoglobin (Hb) 10.7 g/dL (12.6-17.4); Potassium (VBG) 4.09 mmol/L (3.70-5.30); Sodium 132.1 mmol/L (133-146); pH (venous) 7.385 (7.32-7.43)
[2023-07-02] MEDS ORDERED: Metoprolol Tartrate 5 MG/5 ML VIAL ONE (14:13)
[2023-07-02 14:29] LABS: Acetaminophen Less than 10 mcg/mL (10.0-30.0); Alcohol Less than 10.0 mg/dL (Less than 10); Salicylate Less than 8.0 mg/dL (15.0-30.0)
[2023-07-02 15:02] LABS: Lactic Acid 3.1 mmol/L (0.5-2.2)
[2023-07-02] MEDS ORDERED: Dextrose 5% in Water 1,000 ML IV PRN (16:21)
[2023-07-02] MEDS ORDERED: Ondansetron PF 4 MG/2 ML Vial IVP PRN (16:21)
[2023-07-02] MEDS ORDERED: Ondansetron ODT 4 MG TAB PO PRN (16:21)
[2023-07-02] MEDS ORDERED: Glucagon 1 MG/ML KIT IM PRN (16:21)
[2023-07-02] MEDS ORDERED: Dextrose 50% Abboject 50 ML SYRINGE SLOW IVP PRN (16:21)
[2023-07-02] MEDS ORDERED: HumaLOG 300 UNITS/3 ML VIAL SC PRN ×2 (16:28)
[2023-07-02] MEDS ORDERED: Amiodarone 450 MG in Dextrose 5% in Water 250 ML IVPB SCH (16:45)
[2023-07-02] MEDS ORDERED: Albuterol 200 PUFF (6.7GM INHALER) INH PRN (17:07)
[2023-07-02] MEDS ORDERED: Amiodarone 150 MG, Admixture Fee 1 EACH in Dextrose 5% in Water 100 ML IVPB SCH (17:15)
[2023-07-02] MEDS: traMADol HCl 50 MG TAB PO PRN ×2 (17:32→22:29)
[2023-07-02] MEDS: busPIRone HCl 10 MG TAB PO SCH (17:32)
[2023-07-02] MEDS: Amiodarone 450 MG, Admixture Fee 1 EACH in Dextrose 5% in Water 250 ML IVPB SCH (17:55)
[2023-07-02] MEDS ORDERED: Furosemide 40 MG/4 ML VIAL SLOW IVP SCH (18:00)
[2023-07-02 18:40] LABS: Glucose 149 mg/dL (83-110)
[2023-07-02] MEDS: Mometasone 200 MCG/Formoterol 5 MCG 120 PUFF INHALER INH SCH (18:57)
[2023-07-02] MEDS ORDERED: Ipratropium/Albuterol 3 ML NEB NEB PRN (19:03)
[2023-07-02 21:32] LABS: Glucose 153 mg/dL (83-110)
[2023-07-02 21:40] LABS: Troponin I 0.014 ng/mL (< 0.028)
[2023-07-02] MEDS: Acetaminophen 500 MG TAB PO SCH (21:41)
[2023-07-02] MEDS: Melatonin 3 MG TAB PO SCH (21:42)
[2023-07-02] MEDS: Terbinafine 1% Cream 15 GM Tube TOP SCH (22:30)
[2023-07-02] MEDS: Cefepime 2 GM in Sodium Chloride 0.9% 100 ML IVPB SCH (22:30)
[2023-07-03] MEDS: Amiodarone 450 MG, Admixture Fee 1 EACH in Dextrose 5% in Water 250 ML IVPB SCH ×2 (04:35→18:43)
[2023-07-03 04:58] LABS: #Eosinphils 0.2 thou/uL (0.0-0.7); #Monocytes 1.3 thou/uL (0.11-0.59); #Neutrophils 9.1 thou/uL (1.40-6.50); %Basophils 0.3 % (0.0-1.0); %Eosinophils 1.6 % (0.0-10.0); %Lymphocytes 10.3 % (21.0-51.0); %Monocytes 10.8 % (0.0-10.0); %Neutrophils 76.3 % (42.0-75.0); Hematocrit 30.9 % (42.0-52.0); Hemoglobin 9.4 g/dL (14.0-18.0); Mean Corpuscular HGB CONC 30.4 g/dL (32.0-36.0); Mean Corpuscular Hemoglobin 24.4 pg (27.0-31.0); Mean Platelet Volume 10.9 fL (7.4-10.4); Platelet Count 308 10x3/uL (130-400); RBC Distribution Width 24.2 % (11.5-14.5); Red Blood Cell (RBC) Count 3.85 mill/uL (4.70-6.10); White Blood Cell (WBC) Count 11.9 10x3/uL (4.8-10.8)
[2023-07-03] MEDS: traMADol HCl 50 MG TAB PO PRN ×2 (05:27→23:45)
[2023-07-03 05:29] LABS: Mean Corpuscular Volume 80.3 fl (78.0-98.0)
[2023-07-03 05:34] LABS: ALT (SGPT) 52 U/L (8-55); AST (SGOT) 41 U/L (5-34); Albumin 3.3 g/dL (3.4-4.8); Alkaline Phosphatase 150 U/L (40-110); Anion Gap 21 mmol/L (10-20); BUN (Urea Nitrogen) 44 mg/dL (8.4-25.7); Bilirubin, Total 1.8 mg/dL (0.2-1.2); Calc. Creatinine Clearance 61 mL/min (70-130); Calcium 8.8 mg/dL (7.8-10.44); Carbon Dioxide 14 mmol/L (23-31); Chloride 102 mmol/L (98-107); Estimated GFR 45; Globulin 2.7 g/dL (2.4-3.5); Glucose 129 mg/dL (83-110); Potassium 4.5 mmol/L (3.5-5.1); Sodium 132 mmol/L (136-145)
[2023-07-03] MEDS: busPIRone HCl 10 MG TAB PO SCH ×2 (07:14→18:44)
[2023-07-03] MEDS: Furosemide 40 MG/4 ML VIAL SLOW IVP SCH ×2 (07:14→14:47)
[2023-07-03] MEDS: Mometasone 200 MCG/Formoterol 5 MCG 120 PUFF INHALER INH SCH ×2 (07:33→19:36)
[2023-07-03 08:25] LABS: Glucose 126 mg/dL (83-110)
[2023-07-03 12:01] LABS: Glucose 125 mg/dL (83-110)
[2023-07-03] MEDS: Terbinafine 1% Cream 15 GM Tube TOP SCH ×2 (12:01→21:41)
[2023-07-03] MEDS: Metamucil PACK PO SCH (12:02)
[2023-07-03] MEDS: Acetaminophen 500 MG TAB PO SCH ×2 (12:02→21:39)
[2023-07-03] MEDS: Aspirin 81 mg Enteric Coated Tablet PO SCH (12:03)
[2023-07-03] MEDS: Atorvastatin Calcium 40 MG TAB PO SCH (12:03)
[2023-07-03] MEDS: Cefepime 2 GM in Sodium Chloride 0.9% 100 ML IVPB SCH ×2 (12:03→21:46)
[2023-07-03] MEDS: Vancomycin 1.5 GRAM/300 ML BAG 1.5 GM in Premix Bag 1 BAG IVPB SCH (12:36)
[2023-07-03] MEDS ORDERED: Digoxin 0.5 MG/2 ML AMP SLOW IVP SCH ×2 (17:15→22:00)
[2023-07-03 19:14] LABS: Glucose 128 mg/dL (83-110)
[2023-07-03] MEDS ORDERED: Apixaban 2.5 MG TAB PO SCH (21:00)
[2023-07-03] MEDS ORDERED: Apixaban 5 MG TAB PO SCH (21:00)
[2023-07-03 21:22] LABS: Glucose 124 mg/dL (83-110)
[2023-07-03] MEDS: Melatonin 3 MG TAB PO SCH (21:45)
[2023-07-04] MEDS ORDERED: Apixaban 2.5 MG TAB PO SCH ×3 (00:56→09:00)
[2023-07-04] MEDS ORDERED: fentaNYL 50 mcg/mL 1 mL Vial SLOW IVP SCH (02:00)
[2023-07-04 04:11] LABS: #Basophils 0.1 thou/uL (0.0-0.2); #Eosinphils 0.4 thou/uL (0.0-0.7); %Basophils 0.5 % (0.0-1.0); %Eosinophils 3.3 % (0.0-10.0); %Lymphocytes 7.1 % (21.0-51.0); %Monocytes 8.1 % (0.0-10.0); %Neutrophils 80.5 % (42.0-75.0); Hematocrit 33.9 % (42.0-52.0); Hemoglobin 9.8 g/dL (14.0-18.0); Mean Corpuscular HGB CONC 28.9 g/dL (32.0-36.0); Mean Platelet Volume 10.9 fL (7.4-10.4); Platelet Count 261 10x3/uL (130-400); RBC Distribution Width 24.4 % (11.5-14.5); Red Blood Cell (RBC) Count 4.09 mill/uL (4.70-6.10); White Blood Cell (WBC) Count 12.4 10x3/uL (4.8-10.8)
[2023-07-04 04:27] LABS: ALT (SGPT) 49 U/L (8-55); AST (SGOT) 48 U/L (5-34); Alkaline Phosphatase 143 U/L (40-110); Anion Gap 19 mmol/L (10-20); BUN (Urea Nitrogen) 42 mg/dL (8.4-25.7); Bilirubin, Total 1.6 mg/dL (0.2-1.2); Calc. Creatinine Clearance 76 mL/min (70-130); Calcium 8.4 mg/dL (7.8-10.44); Carbon Dioxide 13 mmol/L (23-31); Chloride 105 mmol/L (98-107); Estimated GFR 58; Globulin 2.7 g/dL (2.4-3.5); Glucose 115 mg/dL (83-110); Potassium 4.4 mmol/L (3.5-5.1); Protein, Total 5.7 g/dL (5.8-8.1); Sodium 133 mmol/L (136-145)
[2023-07-04 04:49] LABS: Mean Corpuscular Volume 82.9 fl (78.0-98.0)
[2023-07-04] MEDS: traMADol HCl 50 MG TAB PO PRN ×2 (05:31→12:10)
[2023-07-04 05:49] LABS: Anisocytosis MODERATE=16-30 cells HPF (0-5); Burr Cells MODERATE= 6-15 cells HPF (0-1); CellaVision Operator ID LAB.JMM; Macrocytosis SLIGHT = 6-15 cells HPF (0-5); Platelet Adequacy Comment Platelets Normal; Polychromasia SLIGHT = 2-3 cells HPF (0-2)
[2023-07-04] MEDS: Furosemide 40 MG/4 ML VIAL SLOW IVP SCH (05:57)
[2023-07-04] MEDS: Mometasone 200 MCG/Formoterol 5 MCG 120 PUFF INHALER INH SCH ×2 (07:50→19:26)
[2023-07-04] MEDS ORDERED: Digoxin 0.5 MG/2 ML AMP SLOW IVP SCH (08:00)
[2023-07-04] MEDS: Aspirin 81 mg Enteric Coated Tablet PO SCH (08:01)
[2023-07-04] MEDS: busPIRone HCl 10 MG TAB PO SCH ×2 (08:01→22:15)
[2023-07-04] MEDS: Atorvastatin Calcium 40 MG TAB PO SCH (08:01)
[2023-07-04] MEDS: Apixaban 5 MG TAB PO SCH ×2 (08:01→22:14)
[2023-07-04] MEDS: Acetaminophen 500 MG TAB PO SCH ×3 (08:01→22:14)
[2023-07-04] MEDS: Furosemide 20 MG TAB PO SCH (10:43)
[2023-07-04] MEDS: Terbinafine 1% Cream 15 GM Tube TOP SCH ×2 (13:57→22:42)
[2023-07-04] MEDS: Amiodarone 450 MG, Admixture Fee 1 EACH in Dextrose 5% in Water 250 ML IVPB SCH (13:58)
[2023-07-04] MEDS: Metamucil PACK PO SCH (14:40)
[2023-07-04] MEDS: Vancomycin 1.5 GRAM/300 ML BAG 1.5 GM in Premix Bag 1 BAG IVPB SCH (16:43)
[2023-07-04] MEDS: Acetaminophen 325 MG TAB PO PRN (16:44)
[2023-07-04] MEDS: Cefepime 2 GM in Sodium Chloride 0.9% 100 ML IVPB SCH (16:55)
[2023-07-04] MEDS ORDERED: QUEtiapine 25 MG TAB PO SCH (21:00)
[2023-07-04] MEDS: Melatonin 3 MG TAB PO SCH (22:14)
[2023-07-04] MEDS: Meropenem 2 GM, Admixture Fee 1 EACH in Sodium Chloride 0.9% 100 ML IVPB SCH (22:16)
[2023-07-05] MEDS: Meropenem 2 GM, Admixture Fee 1 EACH in Sodium Chloride 0.9% 100 ML IVPB SCH ×3 (02:28→19:09)
[2023-07-05 04:40] LABS: #Eosinphils 0.4 thou/uL (0.0-0.7); #Monocytes 0.8 thou/uL (0.11-0.59); #Neutrophils 6.8 thou/uL (1.40-6.50); %Basophils 0.3 % (0.0-1.0); %Eosinophils 4.1 % (0.0-10.0); %Lymphocytes 8.3 % (21.0-51.0); %Monocytes 9.5 % (0.0-10.0); %Neutrophils 77.3 % (42.0-75.0); Hematocrit 27.9 % (42.0-52.0); Hemoglobin 8.8 g/dL (14.0-18.0); Mean Corpuscular HGB CONC 31.5 g/dL (32.0-36.0); Mean Corpuscular Hemoglobin 24.6 pg (27.0-31.0); Mean Corpuscular Volume 78.2 fl (78.0-98.0); Mean Platelet Volume 10.2 fL (7.4-10.4); Platelet Count 287 10x3/uL (130-400); RBC Distribution Width 23.5 % (11.5-14.5); Red Blood Cell (RBC) Count 3.57 mill/uL (4.70-6.10); White Blood Cell (WBC) Count 8.8 10x3/uL (4.8-10.8)
[2023-07-05 05:25] LABS: ALT (SGPT) 34 U/L (8-55); AST (SGOT) 22 U/L (5-34); Albumin 2.7 g/dL (3.4-4.8); Alkaline Phosphatase 123 U/L (40-110); Anion Gap 13 mmol/L (10-20); BUN (Urea Nitrogen) 31 mg/dL (8.4-25.7); Calc. Creatinine Clearance 91 mL/min (70-130); Calcium 8.2 mg/dL (7.8-10.44); Carbon Dioxide 22 mmol/L (23-31); Chloride 106 mmol/L (98-107); Estimated GFR 73; Globulin 2.1 g/dL (2.4-3.5); Glucose 96 mg/dL (83-110); Potassium 3.6 mmol/L (3.5-5.1); Protein, Total 4.8 g/dL (5.8-8.1); Sodium 137 mmol/L (136-145)
[2023-07-05] MEDS: busPIRone HCl 10 MG TAB PO SCH ×3 (06:20→21:38)
[2023-07-05] MEDS: Mometasone 200 MCG/Formoterol 5 MCG 120 PUFF INHALER INH SCH ×2 (07:34→18:24)
[2023-07-05] MEDS: traMADol HCl 50 MG TAB PO PRN ×2 (11:26→21:32)
[2023-07-05] MEDS: Acetaminophen 500 MG TAB PO SCH ×2 (11:30→21:33)
[2023-07-05] MEDS: Digoxin 0.125 MG TAB PO SCH (11:31)
[2023-07-05] MEDS: Atorvastatin Calcium 40 MG TAB PO SCH (11:32)
[2023-07-05] MEDS: Aspirin 81 mg Enteric Coated Tablet PO SCH (11:32)
[2023-07-05] MEDS: Furosemide 20 MG TAB PO SCH (11:32)
[2023-07-05] MEDS: Apixaban 5 MG TAB PO SCH ×2 (11:32→21:33)
[2023-07-05 12:27] LABS: Vancomycin, Trough 15.8 ug/mL
[2023-07-05 12:55] LABS: Glucose 126 mg/dL (83-110)
[2023-07-05] MEDS: Terbinafine 1% Cream 15 GM Tube TOP SCH ×2 (13:26→21:34)
[2023-07-05] MEDS: Metamucil PACK PO SCH (13:26)
[2023-07-05] MEDS: Vancomycin 1.5 GRAM/300 ML BAG 1.5 GM in Premix Bag 1 BAG IVPB SCH (16:23)
[2023-07-05] MEDS ORDERED: Ketorolac Tromethamine 30 MG/ML VIAL IVP SCH (16:45)
[2023-07-05 17:34] LABS: Glucose 107 mg/dL (83-110)
[2023-07-05] MEDS ORDERED: QUEtiapine 25 MG TAB PO SCH (21:00)
[2023-07-05] MEDS: Melatonin 3 MG TAB PO SCH (21:33)
[2023-07-06] MEDS: Meropenem 2 GM, Admixture Fee 1 EACH in Sodium Chloride 0.9% 100 ML IVPB SCH ×3 (02:29→17:36)
[2023-07-06 05:32] LABS: #Eosinphils 0.3 thou/uL (0.0-0.7); #Monocytes 0.7 thou/uL (0.11-0.59); #Neutrophils 6.5 thou/uL (1.40-6.50); %Basophils 0.5 % (0.0-1.0); %Eosinophils 3.8 % (0.0-10.0); %Monocytes 8.3 % (0.0-10.0); %Neutrophils 78.7 % (42.0-75.0); Hematocrit 29.5 % (42.0-52.0); Hemoglobin 9.2 g/dL (14.0-18.0); Mean Corpuscular HGB CONC 31.2 g/dL (32.0-36.0); Mean Corpuscular Hemoglobin 24.4 pg (27.0-31.0); Mean Corpuscular Volume 78.2 fl (78.0-98.0); Platelet Count 301 10x3/uL (130-400); RBC Distribution Width 23.7 % (11.5-14.5); Red Blood Cell (RBC) Count 3.77 mill/uL (4.70-6.10); White Blood Cell (WBC) Count 8.2 10x3/uL (4.8-10.8)
[2023-07-06 06:05] LABS: ALT (SGPT) 28 U/L (8-55); AST (SGOT) 19 U/L (5-34); Albumin 2.8 g/dL (3.4-4.8); Alkaline Phosphatase 130 U/L (40-110); Anion Gap 12 mmol/L (10-20); BUN (Urea Nitrogen) 33 mg/dL (8.4-25.7); Bilirubin, Total 0.8 mg/dL (0.2-1.2); Calc. Creatinine Clearance 117 mL/min (70-130); Calcium 8.3 mg/dL (7.8-10.44); Carbon Dioxide 24 mmol/L (23-31); Chloride 106 mmol/L (98-107); Estimated GFR 93; Globulin 2.3 g/dL (2.4-3.5); Glucose 133 mg/dL (83-110); Protein, Total 5.1 g/dL (5.8-8.1); Sodium 138 mmol/L (136-145)
[2023-07-06] MEDS: busPIRone HCl 10 MG TAB PO SCH ×3 (06:09→21:04)
[2023-07-06] MEDS: Mometasone 200 MCG/Formoterol 5 MCG 120 PUFF INHALER INH SCH ×2 (07:22→19:11)
[2023-07-06] MEDS ORDERED: Polyethylene Glycol 3350 17 GM Packet PO PRN (08:06)
[2023-07-06] MEDS ORDERED: Pantoprazole 40 MG GRANULES PACKET PO SCH (09:00)
[2023-07-06] MEDS: traMADol HCl 50 MG TAB PO PRN ×3 (09:49→22:10)
[2023-07-06] MEDS: Atorvastatin Calcium 40 MG TAB PO SCH (09:55)
[2023-07-06] MEDS: Aspirin 81 mg Enteric Coated Tablet PO SCH (09:56)
[2023-07-06] MEDS: Metamucil PACK PO SCH (09:56)
[2023-07-06] MEDS: Digoxin 0.125 MG TAB PO SCH (10:02)
[2023-07-06] MEDS: Acetaminophen 500 MG TAB PO SCH ×2 (10:03→21:04)
[2023-07-06] MEDS: Furosemide 20 MG TAB PO SCH (10:06)
[2023-07-06] MEDS: Apixaban 5 MG TAB PO SCH ×2 (10:07→21:03)
[2023-07-06] MEDS: Terbinafine 1% Cream 15 GM Tube TOP SCH ×2 (10:07→21:04)
[2023-07-06] MEDS: Polyethylene Glycol 3350 17 GM Packet PO SCH (10:08)
[2023-07-06 11:10] LABS: Magnesium 2.3 mg/dL (1.6-2.6)
[2023-07-06 12:03] LABS: Glucose 149 mg/dL (83-110)
[2023-07-06] MEDS: Vancomycin 1.5 GRAM/300 ML BAG 1.5 GM in Premix Bag 1 BAG IVPB SCH (14:12)
[2023-07-06 17:59] LABS: Glucose 108 mg/dL (83-110)
[2023-07-06] MEDS: Melatonin 3 MG TAB PO SCH (21:04)
[2023-07-06 21:55] LABS: Glucose 159 mg/dL (83-110)
[2023-07-07] MEDS ORDERED: hydrOXYzine 25 MG TAB PO SCH (02:15)
[2023-07-07] MEDS: Meropenem 2 GM, Admixture Fee 1 EACH in Sodium Chloride 0.9% 100 ML IVPB SCH ×3 (05:04→18:25)
[2023-07-07] MEDS: busPIRone HCl 10 MG TAB PO SCH ×2 (05:39→21:06)
[2023-07-07] MEDS: traMADol HCl 50 MG TAB PO PRN ×4 (06:20→23:21)
[2023-07-07] MEDS: Mometasone 200 MCG/Formoterol 5 MCG 120 PUFF INHALER INH SCH ×2 (06:26→18:49)
[2023-07-07 07:41] LABS: #Basophils 0.1 thou/uL (0.0-0.2); #Eosinphils 0.5 thou/uL (0.0-0.7); #Monocytes 0.9 thou/uL (0.11-0.59); %Basophils 0.7 % (0.0-1.0); %Eosinophils 4.8 % (0.0-10.0); %Lymphocytes 9.3 % (21.0-51.0); %Neutrophils 74.7 % (42.0-75.0); Hematocrit 34.1 % (42.0-52.0); Hemoglobin 10.4 g/dL (14.0-18.0); Mean Corpuscular HGB CONC 30.5 g/dL (32.0-36.0); Mean Corpuscular Hemoglobin 24.3 pg (27.0-31.0); Mean Corpuscular Volume 79.7 fl (78.0-98.0); Mean Platelet Volume 10.8 fL (7.4-10.4); Platelet Count 331 10x3/uL (130-400); Red Blood Cell (RBC) Count 4.28 mill/uL (4.70-6.10); White Blood Cell (WBC) Count 9.4 10x3/uL (4.8-10.8)
[2023-07-07 08:07] LABS: Anion Gap 15 mmol/L (10-20); BUN (Urea Nitrogen) 27 mg/dL (8.4-25.7); Calc. Creatinine Clearance 120 mL/min (70-130); Calcium 8.5 mg/dL (7.8-10.44); Carbon Dioxide 22 mmol/L (23-31); Chloride 104 mmol/L (98-107); Estimated GFR 94; Glucose 115 mg/dL (83-110); Potassium 4.4 mmol/L (3.5-5.1); Sodium 137 mmol/L (136-145)
[2023-07-07] MEDS: Polyethylene Glycol 3350 17 GM Packet PO SCH (10:16)
[2023-07-07] MEDS: Digoxin 0.125 MG TAB PO SCH (10:17)
[2023-07-07] MEDS: Metamucil PACK PO SCH (10:17)
[2023-07-07] MEDS: Atorvastatin Calcium 40 MG TAB PO SCH (10:17)
[2023-07-07] MEDS: Acetaminophen 500 MG TAB PO SCH ×2 (10:18→21:06)
[2023-07-07] MEDS: Aspirin 81 mg Enteric Coated Tablet PO SCH (10:19)
[2023-07-07] MEDS: Apixaban 5 MG TAB PO SCH (10:19)
[2023-07-07] MEDS: Furosemide 20 MG TAB PO SCH (10:19)
[2023-07-07] MEDS: Terbinafine 1% Cream 15 GM Tube TOP SCH ×2 (10:23→21:06)
[2023-07-07 10:38] LABS: Anisocytosis MODERATE=16-30 cells HPF (0-5); Burr Cells MODERATE= 6-15 cells HPF (0-1); CellaVision Operator ID LAB.GE; Platelet Adequacy Comment Platelets Normal; Poikilocytosis MARKED = >30 cells HPF (0-5); Polychromasia SLIGHT = 2-3 cells HPF (0-2); Schistocytes SLIGHT = 2-5 cells HPF (0-1)
[2023-07-07] MEDS ORDERED: hydrOXYzine 25 MG TAB PO PRN ×3 (11:05→20:00)
[2023-07-07] MEDS: Vancomycin 1.5 GRAM/300 ML BAG 1.5 GM in Premix Bag 1 BAG IVPB SCH (15:00)
[2023-07-07] MEDS: Melatonin 3 MG TAB PO SCH (21:05)
[2023-07-07 21:50] LABS: INR-International Normal Ratio 1.4; Prothrombin Time 17.7 sec (12.0-14.7)
[2023-07-07 22:01] LABS: Glucose 141 mg/dL (83-110)
[2023-07-08] MEDS: Meropenem 2 GM, Admixture Fee 1 EACH in Sodium Chloride 0.9% 100 ML IVPB SCH ×3 (01:57→17:38)
[2023-07-08 02:29] LABS: #Basophils 0.1 thou/uL (0.0-0.2); #Eosinphils 0.6 thou/uL (0.0-0.7); #Monocytes 0.8 thou/uL (0.11-0.59); #Neutrophils 6.4 thou/uL (1.40-6.50); %Basophils 0.6 % (0.0-1.0); %Eosinophils 6.5 % (0.0-10.0); %Lymphocytes 10.5 % (21.0-51.0); %Monocytes 9.4 % (0.0-10.0); %Neutrophils 72.5 % (42.0-75.0); Hematocrit 30.1 % (42.0-52.0); Hemoglobin 9.1 g/dL (14.0-18.0); Mean Corpuscular HGB CONC 30.2 g/dL (32.0-36.0); Mean Corpuscular Hemoglobin 24.1 pg (27.0-31.0); Mean Corpuscular Volume 79.8 fl (78.0-98.0); Mean Platelet Volume 10.2 fL (7.4-10.4); Platelet Count 327 10x3/uL (130-400); RBC Distribution Width 23.6 % (11.5-14.5); Red Blood Cell (RBC) Count 3.77 mill/uL (4.70-6.10); White Blood Cell (WBC) Count 8.8 10x3/uL (4.8-10.8)
[2023-07-08 02:57] LABS: Troponin I 0.014 ng/mL (< 0.028)
[2023-07-08 03:07] LABS: Anion Gap 14 mmol/L (10-20); BUN (Urea Nitrogen) 30 mg/dL (8.4-25.7); Calc. Creatinine Clearance 106 mL/min (70-130); Calcium 8.7 mg/dL (7.8-10.44); Carbon Dioxide 25 mmol/L (23-31); Chloride 104 mmol/L (98-107); Estimated GFR 87; Glucose 170 mg/dL (83-110); Potassium 4.8 mmol/L (3.5-5.1); Sodium 138 mmol/L (136-145)
[2023-07-08] MEDS: Mometasone 200 MCG/Formoterol 5 MCG 120 PUFF INHALER INH SCH ×2 (06:45→18:53)
[2023-07-08] MEDS: busPIRone HCl 10 MG TAB PO SCH ×2 (08:28→20:13)
[2023-07-08] MEDS: Aspirin 81 mg Enteric Coated Tablet PO SCH (08:28)
[2023-07-08] MEDS: Metamucil PACK PO SCH (08:28)
[2023-07-08] MEDS: Acetaminophen 500 MG TAB PO SCH ×2 (08:28→20:13)
[2023-07-08] MEDS: Digoxin 0.125 MG TAB PO SCH (08:28)
[2023-07-08] MEDS: Polyethylene Glycol 3350 17 GM Packet PO SCH (08:28)
[2023-07-08] MEDS: Atorvastatin Calcium 40 MG TAB PO SCH (08:28)
[2023-07-08 08:42] LABS: Glucose 156 mg/dL (83-110)
[2023-07-08] MEDS: traMADol HCl 50 MG TAB PO PRN (09:33)
[2023-07-08] MEDS: Furosemide 40 MG/4 ML VIAL SLOW IVP SCH ×2 (09:33→09:37)
[2023-07-08] MEDS: Terbinafine 1% Cream 15 GM Tube TOP SCH ×2 (09:36→21:30)
[2023-07-08] MEDS ORDERED: Torsemide 20 MG TAB PO SCH (11:00)
[2023-07-08] MEDS ORDERED: Furosemide 40 MG/4 ML VIAL SLOW IVP SCH (14:00)
[2023-07-08] MEDS: Vancomycin 1.5 GRAM/300 ML BAG 1.5 GM in Premix Bag 1 BAG IVPB SCH (14:27)
[2023-07-08] MEDS: Melatonin 3 MG TAB PO SCH (20:13)
[2023-07-09] MEDS: Meropenem 2 GM, Admixture Fee 1 EACH in Sodium Chloride 0.9% 100 ML IVPB SCH ×3 (04:05→17:20)
[2023-07-09] MEDS: Mometasone 200 MCG/Formoterol 5 MCG 120 PUFF INHALER INH SCH ×2 (06:57→18:46)
[2023-07-09] MEDS: busPIRone HCl 10 MG TAB PO SCH ×2 (09:22→17:26)
[2023-07-09] MEDS: Acetaminophen 500 MG TAB PO SCH ×2 (09:23→21:43)
[2023-07-09] MEDS: Terbinafine 1% Cream 15 GM Tube TOP SCH ×2 (09:24→21:49)
[2023-07-09] MEDS: Digoxin 0.125 MG TAB PO SCH (09:24)
[2023-07-09] MEDS: Apixaban 5 MG TAB PO SCH ×2 (09:24→21:44)
[2023-07-09] MEDS: Atorvastatin Calcium 40 MG TAB PO SCH (09:24)
[2023-07-09] MEDS: Polyethylene Glycol 3350 17 GM Packet PO SCH (09:24)
[2023-07-09] MEDS: Aspirin 81 mg Enteric Coated Tablet PO SCH (09:24)
[2023-07-09] MEDS: Torsemide 20 MG TAB PO SCH ×2 (09:30→14:02)
[2023-07-09] MEDS: Metamucil PACK PO SCH (09:35)
[2023-07-09 09:46] LABS: #Basophils 0.1 thou/uL (0.0-0.2); #Eosinphils 0.4 thou/uL (0.0-0.7); #Monocytes 0.8 thou/uL (0.11-0.59); #Neutrophils 6.6 thou/uL (1.40-6.50); %Basophils 0.7 % (0.0-1.0); %Eosinophils 4.7 % (0.0-10.0); %Lymphocytes 10.5 % (21.0-51.0); %Monocytes 8.8 % (0.0-10.0); %Neutrophils 74.7 % (42.0-75.0); Hemoglobin 9.7 g/dL (14.0-18.0); Mean Corpuscular HGB CONC 30.3 g/dL (32.0-36.0); Mean Corpuscular Hemoglobin 23.9 pg (27.0-31.0); Mean Corpuscular Volume 78.8 fl (78.0-98.0); Mean Platelet Volume 10.5 fL (7.4-10.4); Platelet Count 310 10x3/uL (130-400); RBC Distribution Width 23.2 % (11.5-14.5); Red Blood Cell (RBC) Count 4.06 mill/uL (4.70-6.10); White Blood Cell (WBC) Count 8.9 10x3/uL (4.8-10.8)
[2023-07-09] MEDS: traMADol HCl 50 MG TAB PO PRN ×3 (10:21→21:43)
[2023-07-09 10:24] LABS: Anion Gap 18 mmol/L (10-20); BUN (Urea Nitrogen) 30 mg/dL (8.4-25.7); Calc. Creatinine Clearance 120 mL/min (70-130); Calcium 9.1 mg/dL (7.8-10.44); Carbon Dioxide 23 mmol/L (23-31); Chloride 100 mmol/L (98-107); Estimated GFR 93; Glucose 129 mg/dL (83-110); Potassium 5.1 mmol/L (3.5-5.1); Sodium 136 mmol/L (136-145)
[2023-07-09] MEDS: Vancomycin 1.5 GRAM/300 ML BAG 1.5 GM in Premix Bag 1 BAG IVPB SCH (13:01)
[2023-07-09] MEDS: Melatonin 3 MG TAB PO SCH (21:44)
[2023-07-10] MEDS: Meropenem 2 GM, Admixture Fee 1 EACH in Sodium Chloride 0.9% 100 ML IVPB SCH ×3 (01:51→18:03)
[2023-07-10] MEDS: Acetaminophen 325 MG TAB PO PRN ×2 (02:03→22:57)
[2023-07-10] MEDS ORDERED: Ketorolac Tromethamine 30 MG/ML VIAL IVP SCH (02:45)
[2023-07-10] MEDS: traMADol HCl 50 MG TAB PO PRN ×2 (04:08→22:57)
[2023-07-10 04:23] LABS: #Basophils 0.1 thou/uL (0.0-0.2); #Eosinphils 0.4 thou/uL (0.0-0.7); #Monocytes 0.8 thou/uL (0.11-0.59); #Neutrophils 5.5 thou/uL (1.40-6.50); %Basophils 0.6 % (0.0-1.0); %Eosinophils 4.5 % (0.0-10.0); %Lymphocytes 13.2 % (21.0-51.0); %Monocytes 9.9 % (0.0-10.0); Hematocrit 26.8 % (42.0-52.0); Hemoglobin 8.3 g/dL (14.0-18.0); Mean Corpuscular Hemoglobin 24.1 pg (27.0-31.0); Mean Corpuscular Volume 77.7 fl (78.0-98.0); Mean Platelet Volume 10.1 fL (7.4-10.4); Platelet Count 307 10x3/uL (130-400); RBC Distribution Width 22.5 % (11.5-14.5); Red Blood Cell (RBC) Count 3.45 mill/uL (4.70-6.10); White Blood Cell (WBC) Count 7.7 10x3/uL (4.8-10.8)
[2023-07-10 04:45] LABS: Anion Gap 13 mmol/L (10-20); BUN (Urea Nitrogen) 43 mg/dL (8.4-25.7); Calc. Creatinine Clearance 105 mL/min (70-130); Calcium 9.1 mg/dL (7.8-10.44); Carbon Dioxide 34 mmol/L (23-31); Chloride 93 mmol/L (98-107); Estimated GFR 83; Glucose 134 mg/dL (83-110); Potassium 4.6 mmol/L (3.5-5.1); Sodium 135 mmol/L (136-145)
[2023-07-10] MEDS: Mometasone 200 MCG/Formoterol 5 MCG 120 PUFF INHALER INH SCH ×2 (07:45→18:34)
[2023-07-10] MEDS: Apixaban 5 MG TAB PO SCH ×2 (09:45→20:02)
[2023-07-10] MEDS: Atorvastatin Calcium 40 MG TAB PO SCH (09:45)
[2023-07-10] MEDS: Acetaminophen 500 MG TAB PO SCH ×2 (09:46→20:02)
[2023-07-10] MEDS: Aspirin 81 mg Enteric Coated Tablet PO SCH (09:46)
[2023-07-10] MEDS: busPIRone HCl 10 MG TAB PO SCH ×2 (09:46→18:03)
[2023-07-10] MEDS: Digoxin 0.125 MG TAB PO SCH (09:47)
[2023-07-10] MEDS: Polyethylene Glycol 3350 17 GM Packet PO SCH (09:51)
[2023-07-10] MEDS: Metamucil PACK PO SCH (09:51)
[2023-07-10] MEDS: Torsemide 20 MG TAB PO SCH ×2 (09:55→14:49)
[2023-07-10] MEDS: Terbinafine 1% Cream 15 GM Tube TOP SCH ×2 (09:55→20:05)
[2023-07-10] MEDS: Vancomycin 1.5 GRAM/300 ML BAG 1.5 GM in Premix Bag 1 BAG IVPB SCH (12:47)
[2023-07-10] MEDS: Melatonin 3 MG TAB PO SCH (20:02)
[2023-07-11] MEDS: Meropenem 2 GM, Admixture Fee 1 EACH in Sodium Chloride 0.9% 100 ML IVPB SCH ×3 (02:02→20:52)
[2023-07-11] MEDS: busPIRone HCl 10 MG TAB PO SCH (06:38)
[2023-07-11] MEDS: Mometasone 200 MCG/Formoterol 5 MCG 120 PUFF INHALER INH SCH ×2 (07:39→18:44)
[2023-07-11 07:54] LABS: #Basophils 0.1 thou/uL (0.0-0.2); #Eosinphils 0.5 thou/uL (0.0-0.7); #Monocytes 0.9 thou/uL (0.11-0.59); #Neutrophils 7.4 thou/uL (1.40-6.50); %Basophils 0.7 % (0.0-1.0); %Eosinophils 4.4 % (0.0-10.0); %Lymphocytes 12.7 % (21.0-51.0); %Monocytes 8.6 % (0.0-10.0); %Neutrophils 72.4 % (42.0-75.0); Hematocrit 20.7 % (42.0-52.0); Hemoglobin 6.4 g/dL (14.0-18.0); Mean Corpuscular HGB CONC 30.9 g/dL (32.0-36.0); Mean Corpuscular Volume 77.5 fl (78.0-98.0); Mean Platelet Volume 10.8 fL (7.4-10.4); Platelet Count 313 10x3/uL (130-400); RBC Distribution Width 22.5 % (11.5-14.5); Red Blood Cell (RBC) Count 2.67 mill/uL (4.70-6.10); White Blood Cell (WBC) Count 10.2 10x3/uL (4.8-10.8)
[2023-07-11 07:59] LABS: Anion Gap 13 mmol/L (10-20); BUN (Urea Nitrogen) 49 mg/dL (8.4-25.7); Calc. Creatinine Clearance 120 mL/min (70-130); Calcium 8.9 mg/dL (7.8-10.44); Carbon Dioxide 30 mmol/L (23-31); Chloride 100 mmol/L (98-107); Estimated GFR 93; Glucose 156 mg/dL (83-110); Sodium 138 mmol/L (136-145)
[2023-07-11] MEDS: Acetaminophen 500 MG TAB PO SCH ×2 (08:18→09:39)
[2023-07-11] MEDS: Metamucil PACK PO SCH (08:19)
[2023-07-11] MEDS: Apixaban 5 MG TAB PO SCH (08:19)
[2023-07-11] MEDS: Digoxin 0.125 MG TAB PO SCH ×2 (08:19→09:40)
[2023-07-11] MEDS: Polyethylene Glycol 3350 17 GM Packet PO SCH (08:19)
[2023-07-11] MEDS: Aspirin 81 mg Enteric Coated Tablet PO SCH ×2 (08:19→09:40)
[2023-07-11] MEDS: Atorvastatin Calcium 40 MG TAB PO SCH ×2 (08:19→09:40)
[2023-07-11] MEDS: Torsemide 20 MG TAB PO SCH ×3 (08:20→15:04)
[2023-07-11] MEDS: Terbinafine 1% Cream 15 GM Tube TOP SCH ×2 (08:20→22:48)
[2023-07-11] MEDS: Pantoprazole 40 MG VIAL IVP SCH ×2 (09:10→20:15)
[2023-07-11 10:46] LABS: Iron 57 ug/dL (65-175); Iron Binding Capacity, Total 315 mcg/dL (261-462)
[2023-07-11 15:24] LABS: Vancomycin, Trough 15.9 ug/mL
[2023-07-11] MEDS ORDERED: Morphine 2 MG/ML VIAL SLOW IVP PRN (15:58)
[2023-07-11] MEDS ORDERED: Furosemide 20 MG/2 ML VIAL SLOW IVP SCH (16:15)
[2023-07-11] MEDS ORDERED: Digoxin 0.5 MG/2 ML AMP SLOW IVP SCH (16:15)
[2023-07-11] MEDS: Vancomycin 1.5 GRAM/300 ML BAG 1.5 GM in Premix Bag 1 BAG IVPB SCH (17:27)
[2023-07-11 18:51] LABS: Hematocrit 26.8 % (42.0-52.0); Hemoglobin 8.7 g/dL (14.0-18.0)
[2023-07-11] MEDS: Metoprolol Tartrate 5 MG/5 ML VIAL IVP SCH (20:14)
[2023-07-11] MEDS: Dexmedetomidine 400 MCG, Admixture Fee 1 EACH in Sodium Chloride 0.9% 96 ML IVPB SCH (22:49)
[2023-07-12] MEDS: Meropenem 2 GM, Admixture Fee 1 EACH in Sodium Chloride 0.9% 100 ML IVPB SCH ×3 (01:17→18:27)
[2023-07-12] MEDS: Dexmedetomidine 400 MCG, Admixture Fee 1 EACH in Sodium Chloride 0.9% 96 ML IVPB SCH (04:21)
[2023-07-12] MEDS: Mometasone 200 MCG/Formoterol 5 MCG 120 PUFF INHALER INH SCH ×2 (07:29→18:43)
[2023-07-12] MEDS ORDERED: Norepinephrine 4 MG/4 ML VIAL ONE (07:45)
[2023-07-12] MEDS ORDERED: EPINEPHrine 1 MG/10 ML Abboject SYRINGE ONE (08:42)
[2023-07-12] MEDS: Metoprolol Tartrate 5 MG/5 ML VIAL IVP SCH ×2 (08:45→20:25)
[2023-07-12] MEDS: Pantoprazole 40 MG VIAL IVP SCH ×2 (08:45→20:25)
[2023-07-12] MEDS: Terbinafine 1% Cream 15 GM Tube TOP SCH ×2 (08:45→20:25)
[2023-07-12] MEDS: Digoxin 0.5 MG/2 ML AMP SLOW IVP SCH (08:45)
[2023-07-12 10:12] LABS: #Basophils 0.1 thou/uL (0.0-0.2); #Eosinphils 0.4 thou/uL (0.0-0.7); #Monocytes 0.6 thou/uL (0.11-0.59); %Basophils 0.6 % (0.0-1.0); %Eosinophils 4.2 % (0.0-10.0); %Lymphocytes 8.6 % (21.0-51.0); %Monocytes 6.8 % (0.0-10.0); %Neutrophils 79.3 % (42.0-75.0); Hemoglobin 7.1 g/dL (14.0-18.0); Mean Corpuscular HGB CONC 32.3 g/dL (32.0-36.0); Mean Corpuscular Hemoglobin 25.6 pg (27.0-31.0); Mean Corpuscular Volume 79.4 fl (78.0-98.0); Mean Platelet Volume 10.2 fL (7.4-10.4); Platelet Count 242 10x3/uL (130-400); RBC Distribution Width 20.8 % (11.5-14.5); Red Blood Cell (RBC) Count 2.77 mill/uL (4.70-6.10); White Blood Cell (WBC) Count 8.8 10x3/uL (4.8-10.8)
[2023-07-12 10:32] LABS: Anion Gap 10 mmol/L (10-20); BUN (Urea Nitrogen) 34 mg/dL (8.4-25.7); Calc. Creatinine Clearance 124 mL/min (70-130); Calcium 8.9 mg/dL (7.8-10.44); Carbon Dioxide 27 mmol/L (23-31); Chloride 104 mmol/L (98-107); Estimated GFR 98; Glucose 135 mg/dL (83-110); Potassium 4.5 mmol/L (3.5-5.1); Sodium 136 mmol/L (136-145)
[2023-07-12] MEDS: Vancomycin 1.5 GRAM/300 ML BAG 1.5 GM in Premix Bag 1 BAG IVPB SCH (15:01)
[2023-07-12] MEDS: Torsemide 20 MG TAB PO SCH (15:01)
[2023-07-12] MEDS: busPIRone HCl 10 MG TAB PO SCH (18:26)
[2023-07-12] MEDS: traMADol HCl 50 MG TAB PO PRN (18:26)
[2023-07-12 19:20] LABS: Hematocrit 28.3 % (42.0-52.0); Hemoglobin 9.2 g/dL (14.0-18.0)
[2023-07-12] MEDS: Acetaminophen 500 MG TAB PO SCH (20:24)
[2023-07-12] MEDS: Melatonin 3 MG TAB PO SCH (20:25)
[2023-07-13] MEDS: traMADol HCl 50 MG TAB PO PRN ×4 (00:26→18:30)
[2023-07-13] MEDS: Meropenem 2 GM, Admixture Fee 1 EACH in Sodium Chloride 0.9% 100 ML IVPB SCH ×3 (02:09→18:46)
[2023-07-13] MEDS: busPIRone HCl 10 MG TAB PO SCH ×2 (06:12→18:30)
[2023-07-13 06:36] LABS: #Basophils 0.1 thou/uL (0.0-0.2); #Eosinphils 0.3 thou/uL (0.0-0.7); #Monocytes 0.8 thou/uL (0.11-0.59); %Basophils 0.8 % (0.0-1.0); %Eosinophils 3.9 % (0.0-10.0); %Lymphocytes 15.4 % (21.0-51.0); %Monocytes 8.9 % (0.0-10.0); %Neutrophils 70.5 % (42.0-75.0); Hematocrit 23.7 % (42.0-52.0); Hemoglobin 7.7 g/dL (14.0-18.0); Mean Corpuscular HGB CONC 32.5 g/dL (32.0-36.0); Mean Corpuscular Hemoglobin 25.9 pg (27.0-31.0); Mean Corpuscular Volume 79.8 fl (78.0-98.0); Mean Platelet Volume 10.5 fL (7.4-10.4); Platelet Count 254 10x3/uL (130-400); RBC Distribution Width 20.8 % (11.5-14.5); Red Blood Cell (RBC) Count 2.97 mill/uL (4.70-6.10); White Blood Cell (WBC) Count 8.5 10x3/uL (4.8-10.8)
[2023-07-13 06:56] LABS: Anion Gap 9 mmol/L (10-20); BUN (Urea Nitrogen) 39 mg/dL (8.4-25.7); Calc. Creatinine Clearance 139 mL/min (70-130); Calcium 9.1 mg/dL (7.8-10.44); Carbon Dioxide 29 mmol/L (23-31); Chloride 101 mmol/L (98-107); Estimated GFR 101; Glucose 108 mg/dL (83-110); Potassium 4.1 mmol/L (3.5-5.1); Sodium 135 mmol/L (136-145)
[2023-07-13] MEDS: Mometasone 200 MCG/Formoterol 5 MCG 120 PUFF INHALER INH SCH ×2 (07:22→18:27)
[2023-07-13] MEDS: Digoxin 0.5 MG/2 ML AMP SLOW IVP SCH (09:26)
[2023-07-13] MEDS: Atorvastatin Calcium 40 MG TAB PO SCH (09:26)
[2023-07-13] MEDS: Acetaminophen 500 MG TAB PO SCH ×2 (09:26→20:40)
[2023-07-13] MEDS: Torsemide 20 MG TAB PO SCH ×2 (09:26→14:59)
[2023-07-13] MEDS: Pantoprazole 40 MG VIAL IVP SCH ×2 (09:27→20:41)
[2023-07-13] MEDS: Metoprolol Tartrate 5 MG/5 ML VIAL IVP SCH ×2 (09:27→20:41)
[2023-07-13] MEDS: Polyethylene Glycol 3350 17 GM Packet PO SCH (09:27)
[2023-07-13] MEDS: Terbinafine 1% Cream 15 GM Tube TOP SCH ×2 (09:28→20:41)
[2023-07-13] MEDS ORDERED: Vancomycin 1.5 GRAM/300 ML BAG 1.5 GM in Premix Bag 1 BAG IVPB SCH (12:30)
[2023-07-13 13:51] LABS: Vancomycin, Trough 15.9 ug/mL
[2023-07-13] MEDS: Vancomycin 1.5 GRAM/300 ML BAG 1.5 GM in Premix Bag 1 BAG IVPB SCH (14:54)
[2023-07-13] MEDS: Melatonin 3 MG TAB PO SCH (20:41)
[2023-07-14] MEDS: traMADol HCl 50 MG TAB PO PRN ×2 (00:03→05:42)
[2023-07-14] MEDS: Meropenem 2 GM, Admixture Fee 1 EACH in Sodium Chloride 0.9% 100 ML IVPB SCH ×3 (02:14→18:17)
[2023-07-14] MEDS: busPIRone HCl 10 MG TAB PO SCH ×2 (05:42→18:16)
[2023-07-14 06:17] LABS: Anion Gap 13 mmol/L (10-20); BUN (Urea Nitrogen) 42 mg/dL (8.4-25.7); Calc. Creatinine Clearance 122 mL/min (70-130); Calcium 8.2 mg/dL (7.8-10.44); Carbon Dioxide 24 mmol/L (23-31); Chloride 103 mmol/L (98-107); Estimated GFR 97; Glucose 114 mg/dL (83-110); Potassium 4.1 mmol/L (3.5-5.1); Sodium 136 mmol/L (136-145)
[2023-07-14] MEDS: Mometasone 200 MCG/Formoterol 5 MCG 120 PUFF INHALER INH SCH ×2 (06:44→18:34)
[2023-07-14 07:25] LABS: #Basophils 0.1 thou/uL (0.0-0.2); #Eosinphils 0.3 thou/uL (0.0-0.7); #Monocytes 0.7 thou/uL (0.11-0.59); #Neutrophils 6.1 thou/uL (1.40-6.50); %Basophils 0.6 % (0.0-1.0); %Eosinophils 3.3 % (0.0-10.0); %Neutrophils 70.5 % (42.0-75.0); Hematocrit 17.1 % (42.0-52.0); Hemoglobin 5.4 g/dL (14.0-18.0); Mean Corpuscular HGB CONC 31.6 g/dL (32.0-36.0); Mean Corpuscular Volume 82.2 fl (78.0-98.0); Mean Platelet Volume 10.9 fL (7.4-10.4); Platelet Count 230 10x3/uL (130-400); RBC Distribution Width 21.5 % (11.5-14.5); Red Blood Cell (RBC) Count 2.08 mill/uL (4.70-6.10); White Blood Cell (WBC) Count 8.6 10x3/uL (4.8-10.8)
[2023-07-14] MEDS ORDERED: Furosemide 20 MG/2 ML VIAL SLOW IVP SCH (08:15)
[2023-07-14] MEDS: Acetaminophen 500 MG TAB PO SCH ×2 (08:28→20:52)
[2023-07-14] MEDS: Atorvastatin Calcium 40 MG TAB PO SCH (08:29)
[2023-07-14] MEDS: Pantoprazole 40 MG VIAL IVP SCH ×2 (08:29→20:51)
[2023-07-14] MEDS: Digoxin 0.5 MG/2 ML AMP SLOW IVP SCH (08:37)
[2023-07-14] MEDS: Terbinafine 1% Cream 15 GM Tube TOP SCH ×2 (08:39→20:53)
[2023-07-14] MEDS: Polyethylene Glycol 3350 17 GM Packet PO SCH (08:39)
[2023-07-14] MEDS: Metoprolol Tartrate 5 MG/5 ML VIAL IVP SCH ×2 (08:39→20:53)
[2023-07-14] MEDS: Torsemide 20 MG TAB PO SCH ×2 (08:39→14:55)
[2023-07-14 09:42] VITALS: BMI 26.3
[2023-07-14] MEDS ORDERED: Furosemide 40 MG/4 ML VIAL ONE (14:46)
[2023-07-14] MEDS: Vancomycin 1.5 GRAM/300 ML BAG 1.5 GM in Premix Bag 1 BAG IVPB SCH (14:54)
[2023-07-14] MEDS ORDERED: Midazolam HCl 2 mg/2 ml Vial ONE (18:35)
[2023-07-14] MEDS ORDERED: Ketamine 50 MG/ML (10ML VIAL) ONE (18:35)
[2023-07-14] MEDS ORDERED: GLYCOPYRROLATE/PF 0.2 MG/ML VIAL ONE (18:36)
[2023-07-14] MEDS ORDERED: NEOSTIGMINE 3 MG/3 ML SYR 3 MG/3 ML SYRINGE ONE (19:20)
[2023-07-14] MEDS ORDERED: Glycopyrrolate 0.2 MG/ML 5 ML SYRINGE ONE (19:20)
[2023-07-14] MEDS ORDERED: Rocuronium Bromide 10 MG/ML (10ML VIAL) ONE (19:20)
[2023-07-14] MEDS ORDERED: Ondansetron PF 4 MG/2 ML Vial ONE (19:20)
[2023-07-14] MEDS ORDERED: PHENYLEPHRINE-NS 100 MCG/ML 10 ML SYRINGE ONE (19:20)
[2023-07-14] MEDS ORDERED: Ondansetron HCl/PF 4 MG/2 ML Vial IVP PRN (19:49)
[2023-07-14] MEDS ORDERED: Promethazine HCl 25 MG/ML VIAL IM PRN (19:49)
[2023-07-14 20:38] LABS: Hematocrit 18.9 % (42.0-52.0); Hemoglobin 6.4 g/dL (14.0-18.0)
[2023-07-14] MEDS: Melatonin 3 MG TAB PO SCH (20:53)
[2023-07-15] MEDS: Meropenem 2 GM, Admixture Fee 1 EACH in Sodium Chloride 0.9% 100 ML IVPB SCH ×3 (01:38→16:25)
[2023-07-15 05:30] LABS: #Basophils 0.1 thou/uL (0.0-0.2); #Eosinphils 0.3 thou/uL (0.0-0.7); #Monocytes 0.7 thou/uL (0.11-0.59); #Neutrophils 7.4 thou/uL (1.40-6.50); %Basophils 0.5 % (0.0-1.0); %Eosinophils 2.9 % (0.0-10.0); %Lymphocytes 10.3 % (21.0-51.0); %Monocytes 7.8 % (0.0-10.0); Hemoglobin 6.5 g/dL (14.0-18.0); Mean Corpuscular HGB CONC 34.2 g/dL (32.0-36.0); Mean Corpuscular Hemoglobin 28.9 pg (27.0-31.0); Mean Corpuscular Volume 84.4 fl (78.0-98.0); Mean Platelet Volume 10.7 fL (7.4-10.4); Platelet Count 176 10x3/uL (130-400); RBC Distribution Width 19.1 % (11.5-14.5); Red Blood Cell (RBC) Count 2.25 mill/uL (4.70-6.10); White Blood Cell (WBC) Count 9.4 10x3/uL (4.8-10.8)
[2023-07-15] MEDS: busPIRone HCl 10 MG TAB PO SCH ×2 (06:05→18:42)
[2023-07-15] MEDS: Mometasone 200 MCG/Formoterol 5 MCG 120 PUFF INHALER INH SCH ×2 (07:14→18:39)
[2023-07-15 07:24] LABS: Albumin 2.7 g/dL (3.4-4.8); Calcium 8.5 mg/dL (7.8-10.44); Carbon Dioxide 27 mmol/L (23-31); Chloride 105 mmol/L (98-107); Glucose 146 mg/dL (83-110); Protein, Total 4.7 g/dL (5.8-8.1); Sodium 136 mmol/L (136-145)
[2023-07-15 07:25] LABS: ALT (SGPT) 12 U/L (8-55); AST (SGOT) 10 U/L (5-34); Alkaline Phosphatase 99 U/L (40-110); Anion Gap 8 mmol/L (10-20); BUN (Urea Nitrogen) 34 mg/dL (8.4-25.7); Bilirubin, Total 0.9 mg/dL (0.2-1.2); Calc. Creatinine Clearance 104 mL/min (70-130); Estimated GFR 94
[2023-07-15] MEDS ORDERED: Furosemide 20 MG/2 ML VIAL SLOW IVP SCH (08:00)
[2023-07-15] MEDS: Metoprolol Tartrate 5 MG/5 ML VIAL IVP SCH (09:51)
[2023-07-15] MEDS: Pantoprazole 40 MG VIAL IVP SCH ×2 (10:08→20:54)
[2023-07-15] MEDS: Acetaminophen 500 MG TAB PO SCH ×2 (10:09→20:54)
[2023-07-15] MEDS: Torsemide 20 MG TAB PO SCH ×2 (10:10→14:40)
[2023-07-15] MEDS: Terbinafine 1% Cream 15 GM Tube TOP SCH ×2 (10:11→21:11)
[2023-07-15] MEDS: Atorvastatin Calcium 40 MG TAB PO SCH (10:11)
[2023-07-15] MEDS: Polyethylene Glycol 3350 17 GM Packet PO SCH (10:11)
[2023-07-15] MEDS: Digoxin 0.5 MG/2 ML AMP SLOW IVP SCH (10:20)
[2023-07-15] MEDS ORDERED: Digoxin 0.125 MG TAB PO SCH (10:30)
[2023-07-15] MEDS: Vancomycin 1.5 GRAM/300 ML BAG 1.5 GM in Premix Bag 1 BAG IVPB SCH (16:24)
[2023-07-15 19:30] LABS: Hematocrit 21.4 % (42.0-52.0); Hemoglobin 7.1 g/dL (14.0-18.0)
[2023-07-15] MEDS: Melatonin 3 MG TAB PO SCH (20:54)
[2023-07-15] MEDS: traMADol HCl 50 MG TAB PO PRN (22:19)
[2023-07-15] MEDS ORDERED: Lidocaine 4% Patch TD SCH (22:54)
[2023-07-16] MEDS: Meropenem 2 GM, Admixture Fee 1 EACH in Sodium Chloride 0.9% 100 ML IVPB SCH ×4 (00:07→23:21)
[2023-07-16 06:01] LABS: #Basophils 0.1 thou/uL (0.0-0.2); #Eosinphils 0.3 thou/uL (0.0-0.7); #Monocytes 0.5 thou/uL (0.11-0.59); #Neutrophils 6.2 thou/uL (1.40-6.50); %Basophils 0.9 % (0.0-1.0); %Eosinophils 4.1 % (0.0-10.0); %Monocytes 6.1 % (0.0-10.0); %Neutrophils 76.3 % (42.0-75.0); Hematocrit 23.2 % (42.0-52.0); Hemoglobin 7.8 g/dL (14.0-18.0); Mean Corpuscular HGB CONC 33.6 g/dL (32.0-36.0); Mean Corpuscular Hemoglobin 29.2 pg (27.0-31.0); Mean Corpuscular Volume 86.9 fl (78.0-98.0); Mean Platelet Volume 10.8 fL (7.4-10.4); Platelet Count 166 10x3/uL (130-400); RBC Distribution Width 19.2 % (11.5-14.5); Red Blood Cell (RBC) Count 2.67 mill/uL (4.70-6.10); White Blood Cell (WBC) Count 8.1 10x3/uL (4.8-10.8)
[2023-07-16 06:24] LABS: ALT (SGPT) 25 U/L (8-55); AST (SGOT) 31 U/L (5-34); Alkaline Phosphatase 139 U/L (40-110); Anion Gap 8 mmol/L (10-20); BUN (Urea Nitrogen) 31 mg/dL (8.4-25.7); Bilirubin, Total 0.8 mg/dL (0.2-1.2); Calc. Creatinine Clearance 109 mL/min (70-130); Calcium 8.7 mg/dL (7.8-10.44); Carbon Dioxide 28 mmol/L (23-31); Chloride 105 mmol/L (98-107); Estimated GFR 95; Globulin 2.2 g/dL (2.4-3.5); Glucose 132 mg/dL (83-110); Potassium 4.4 mmol/L (3.5-5.1); Protein, Total 5.2 g/dL (5.8-8.1); Sodium 137 mmol/L (136-145)
[2023-07-16] MEDS: Mometasone 200 MCG/Formoterol 5 MCG 120 PUFF INHALER INH SCH ×2 (06:28→18:41)
[2023-07-16] MEDS: busPIRone HCl 10 MG TAB PO SCH ×2 (06:40→19:06)
[2023-07-16] MEDS: Atorvastatin Calcium 40 MG TAB PO SCH (09:22)
[2023-07-16] MEDS: Acetaminophen 500 MG TAB PO SCH ×3 (09:22→20:50)
[2023-07-16] MEDS: Digoxin 0.125 MG TAB PO SCH (09:22)
[2023-07-16] MEDS: Terbinafine 1% Cream 15 GM Tube TOP SCH ×2 (09:23→20:50)
[2023-07-16] MEDS: Polyethylene Glycol 3350 17 GM Packet PO SCH (09:23)
[2023-07-16] MEDS: Pantoprazole 40 MG VIAL IVP SCH ×2 (09:23→20:50)
[2023-07-16] MEDS: Torsemide 20 MG TAB PO SCH ×2 (09:23→14:53)
[2023-07-16] MEDS ORDERED: Transdermal Patch Removal TOP SCH (11:00)
[2023-07-16] MEDS: traMADol HCl 50 MG TAB PO PRN (14:56)
[2023-07-16] MEDS ORDERED: Iopamidol-370 76% 500 ML MDV (1 ML CHARGE) ONE (16:06)
[2023-07-16] MEDS: Vancomycin 1.5 GRAM/300 ML BAG 1.5 GM in Premix Bag 1 BAG IVPB SCH (18:10)
[2023-07-16] MEDS ORDERED: Vancomycin 1.5 GRAM/300 ML BAG 1.5 GM in Premix Bag 1 BAG IVPB SCH (20:00)
[2023-07-16 20:32] LABS: Hematocrit 26.7 % (42.0-52.0); Mean Corpuscular HGB CONC 33.7 g/dL (32.0-36.0); Mean Corpuscular Hemoglobin 29.7 pg (27.0-31.0); Mean Corpuscular Volume 88.1 fl (78.0-98.0); Mean Platelet Volume 10.8 fL (7.4-10.4); Platelet Count 181 10x3/uL (130-400); Red Blood Cell (RBC) Count 3.03 mill/uL (4.70-6.10); White Blood Cell (WBC) Count 7.6 10x3/uL (4.8-10.8)
[2023-07-16] MEDS: Melatonin 3 MG TAB PO SCH (20:50)
[2023-07-17] MEDS: traMADol HCl 50 MG TAB PO PRN (02:06)
[2023-07-17] MEDS ORDERED: hydrOXYzine Pamoate 25 mg Capsule PO SCH (02:45)
[2023-07-17 07:04] LABS: #Basophils 0.1 thou/uL (0.0-0.2); #Eosinphils 0.4 thou/uL (0.0-0.7); #Monocytes 0.7 thou/uL (0.11-0.59); #Neutrophils 8.5 thou/uL (1.40-6.50); %Basophils 0.7 % (0.0-1.0); %Eosinophils 3.9 % (0.0-10.0); %Lymphocytes 9.7 % (21.0-51.0); %Monocytes 6.6 % (0.0-10.0); %Neutrophils 78.5 % (42.0-75.0); Hematocrit 29.8 % (42.0-52.0); Hemoglobin 9.7 g/dL (14.0-18.0); Mean Corpuscular HGB CONC 32.6 g/dL (32.0-36.0); Mean Corpuscular Hemoglobin 29.5 pg (27.0-31.0); Mean Corpuscular Volume 90.6 fl (78.0-98.0); Mean Platelet Volume 11.3 fL (7.4-10.4); Platelet Count 185 10x3/uL (130-400); RBC Distribution Width 19.7 % (11.5-14.5); Red Blood Cell (RBC) Count 3.29 mill/uL (4.70-6.10); White Blood Cell (WBC) Count 10.8 10x3/uL (4.8-10.8)
[2023-07-17] MEDS: Mometasone 200 MCG/Formoterol 5 MCG 120 PUFF INHALER INH SCH (07:24)
[2023-07-17 07:28] LABS: Anion Gap 13 mmol/L (10-20); BUN (Urea Nitrogen) 27 mg/dL (8.4-25.7); Calc. Creatinine Clearance 105 mL/min (70-130); Carbon Dioxide 21 mmol/L (23-31); Chloride 105 mmol/L (98-107); Potassium 4.7 mmol/L (3.5-5.1); Sodium 134 mmol/L (136-145)
[2023-07-17 07:29] LABS: ALT (SGPT) 42 U/L (8-55); AST (SGOT) 55 U/L (5-34); Alkaline Phosphatase 165 U/L (40-110); Calcium 8.5 mg/dL (7.8-10.44); Estimated GFR 94; Globulin 2.8 g/dL (2.4-3.5); Glucose 105 mg/dL (83-110); Protein, Total 5.8 g/dL (5.8-8.1)
[2023-07-17] MEDS ORDERED: metFORMIN 500 MG TAB PO SCH ×2 (08:15→17:00)
[2023-07-17] MEDS: Meropenem 2 GM, Admixture Fee 1 EACH in Sodium Chloride 0.9% 100 ML IVPB SCH (08:20)
[2023-07-17] MEDS: Pantoprazole 40 MG VIAL IVP SCH (08:22)
[2023-07-17] MEDS: Torsemide 20 MG TAB PO SCH ×3 (08:22→15:14)
[2023-07-17] MEDS: Digoxin 0.125 MG TAB PO SCH (08:22)
[2023-07-17] MEDS: busPIRone HCl 10 MG TAB PO SCH (08:23)
[2023-07-17] MEDS: Acetaminophen 500 MG TAB PO SCH ×3 (08:23→15:13)
[2023-07-17] MEDS: Atorvastatin Calcium 40 MG TAB PO SCH (08:23)
[2023-07-17] MEDS: Polyethylene Glycol 3350 17 GM Packet PO SCH (08:23)
[2023-07-17] MEDS: Terbinafine 1% Cream 15 GM Tube TOP SCH (13:47)
[2023-07-17 16:00] VITALS: BP 135/65; TEMP 98
== END 2023-07-17 16:09 | DRG 564 ==
LOC: ERS 10:23 → ERHOLD 13:23 → 2NO 16:27 → T4-A 07-09 19:33 → T4-B 07-10 19:37 → IMCU/EMU 07-11 15:46 → T4-A 07-12 12:29
PROVIDERS: ADMIT Student in an Organized Health Care Education/Training Program; ATTEND Student in an Organized Health Care Education/Training Program
PROC: 02HV33Z Insertion of Infusion Device into Superior Vena Cava, Percutaneous Approach (ICD-10-PCS; principal; 2023-07-07)
PROC: B5181ZA Fluoroscopy of Superior Vena Cava using Low Osmolar Contrast, Guidance (ICD-10-PCS; 2023-07-07)
PROC: B548ZZA Ultrasonography of Superior Vena Cava, Guidance (ICD-10-PCS; 2023-07-07)
PROC: 30233N1 Transfusion of Nonautologous Red Blood Cells into Peripheral Vein, Percutaneous Approach (ICD-10-PCS; 2023-07-11)
PROC: 0DB68ZX Excision of Stomach, Via Natural or Artificial Opening Endoscopic, Diagnostic (ICD-10-PCS; 2023-07-12)
PROC: 3E0G8GC Introduction of Other Therapeutic Substance into Upper GI, Via Natural or Artificial Opening Endoscopic (ICD-10-PCS; 2023-07-12)
PROC: 0W3P8ZZ Control Bleeding in Gastrointestinal Tract, Via Natural or Artificial Opening Endoscopic (ICD-10-PCS; 2023-07-12)
PROC: 3E0G8GC Introduction of Other Therapeutic Substance into Upper GI, Via Natural or Artificial Opening Endoscopic (ICD-10-PCS; 2023-07-14)
PROC: 30233L1 Transfusion of Nonautologous Fresh Plasma into Peripheral Vein, Percutaneous Approach (ICD-10-PCS; 2023-07-15)
PROC: 30233K1 Transfusion of Nonautologous Frozen Plasma into Peripheral Vein, Percutaneous Approach (ICD-10-PCS; 2023-07-15)
DX: T87.81 Dehiscence of amputation stump (principal); I50.23 Acute on chronic systolic (congestive) heart failure; K26.4 Chronic or unspecified duodenal ulcer with hemorrhage; M86.8X7 Other osteomyelitis, ankle and foot; N17.9 Acute kidney failure, unspecified; I47.20 Ventricular tachycardia, unspecified; N18.4 Chronic kidney disease, stage 4 (severe); D62 Acute posthemorrhagic anemia; J90 Pleural effusion, not elsewhere classified; R18.8 Other ascites; I13.0 Hypertensive heart and chronic kidney disease with heart failure and stage 1 through stage 4 chronic kidney disease, or unspecified chronic kidney disease; I25.10 Atherosclerotic heart disease of native coronary artery without angina pectoris; J44.9 Chronic obstructive pulmonary disease, unspecified; E03.9 Hypothyroidism, unspecified; G20.A1 Parkinson's disease without dyskinesia, without mention of fluctuations; M10.9 Gout, unspecified; E11.40 Type 2 diabetes mellitus with diabetic neuropathy, unspecified; F17.210 Nicotine dependence, cigarettes, uncomplicated; G47.00 Insomnia, unspecified; K59.00 Constipation, unspecified; F41.1 Generalized anxiety disorder; G89.29 Other chronic pain; F12.10 Cannabis abuse, uncomplicated; F15.10 Other stimulant abuse, uncomplicated; F10.10 Alcohol abuse, uncomplicated; Z66 Do not resuscitate; I25.5 Ischemic cardiomyopathy; E11.22 Type 2 diabetes mellitus with diabetic chronic kidney disease; E11.51 Type 2 diabetes mellitus with diabetic peripheral angiopathy without gangrene; K43.9 Ventral hernia without obstruction or gangrene; R45.1 Restlessness and agitation; F03.90 Unspecified dementia, unspecified severity, without behavioral disturbance, psychotic disturbance, mood disturbance, and anxiety; M83.9 Adult osteomalacia, unspecified; Z91.148 Patient's other noncompliance with medication regimen for other reason; K29.70 Gastritis, unspecified, without bleeding; Z95.1 Presence of aortocoronary bypass graft; Z89.431 Acquired absence of right foot; Z89.422 Acquired absence of other left toe(s); Z79.82 Long term (current) use of aspirin; Z79.51 Long term (current) use of inhaled steroids; Z79.899 Other long term (current) drug therapy; Z79.84 Long term (current) use of oral hypoglycemic drugs
CPT/HCPCS: 36415; 36416; 36430; 36569; 71045; 74177; 80048; 80053; 80202; 80307; 82728; 82805; 82947; 83540; 83550; 83605; 83735; 83880; 84484; 85025; 85610; 86140; 86850; 86900; 86901; 87040; 87070; 87077; 87186; 87205; 88305; 88342; 93005; 93010; 94640; 96365; 96367; 96375; 97139; C9113; J0171; J0282; J0692; J1160; J1650; J1815; J1885; J1940; J2185; J2250; J2272; J2405; J3010; J3370; J3490; J7070; J7620; P9016; P9059; Q0162; Q0177; Q9967

== ENCOUNTER 2023-07-19 15:03 | Emergency (ER) | payer OTHER, MEDICAID ==
[2023-07-19 16:44] LABS: Amphetamine Not Detected (NotDetected); Barbiturates Screen Not Detected (NotDetected); Benzodiazepine Screen Not Detected (NotDetected); Cocaine Metabolite Screen Not Detected (NotDetected); Methadone Not Detected (NotDetected); Methamphetamine Not Detected (NotDetected); Opiate Screen Not Detected (NotDetected); Oxycodone Screen Not Detected (NotDetected); Phencyclidine (PCP) Not Detected (NotDetected); THC/Cannabinoid Screen Not Detected (NotDetected); Tricyclic Screen Not Detected (NotDetected)
[2023-07-19] MEDS ORDERED: Morphine 4 MG/ML VIAL ONE (16:45)
[2023-07-19 16:58] LABS: #Basophils 0.1 thou/uL (0.0-0.2); #Eosinphils 0.5 thou/uL (0.0-0.7); #Monocytes 0.5 thou/uL (0.11-0.59); #Neutrophils 7.6 thou/uL (1.40-6.50); %Basophils 0.7 % (0.0-1.0); %Lymphocytes 7.9 % (21.0-51.0); %Monocytes 5.3 % (0.0-10.0); %Neutrophils 80.4 % (42.0-75.0); Hematocrit 31.6 % (42.0-52.0); Hemoglobin 10.4 g/dL (14.0-18.0); Mean Corpuscular HGB CONC 32.9 g/dL (32.0-36.0); Mean Corpuscular Hemoglobin 29.6 pg (27.0-31.0); Mean Platelet Volume 11.1 fL (7.4-10.4); Platelet Count 324 10x3/uL (130-400); RBC Distribution Width 19.7 % (11.5-14.5); Red Blood Cell (RBC) Count 3.51 mill/uL (4.70-6.10); White Blood Cell (WBC) Count 9.5 10x3/uL (4.8-10.8)
[2023-07-19 17:19] LABS: Digoxin 0.37 ng/mL (0.8-2.0)
[2023-07-19 17:21] LABS: ALT (SGPT) 44 U/L (8-55); AST (SGOT) 34 U/L (5-34); Albumin 3.4 g/dL (3.4-4.8); Alkaline Phosphatase 199 U/L (40-110); Anion Gap 13 mmol/L (10-20); BUN (Urea Nitrogen) 23 mg/dL (8.4-25.7); Bilirubin, Total 0.7 mg/dL (0.2-1.2); Calc. Creatinine Clearance 0 mL/min (70-130); Calcium 8.7 mg/dL (7.8-10.44); Carbon Dioxide 28 mmol/L (23-31); Chloride 101 mmol/L (98-107); Estimated GFR 82; Globulin 2.7 g/dL (2.4-3.5); Glucose 102 mg/dL (83-110); Potassium 4.3 mmol/L (3.5-5.1); Protein, Total 6.1 g/dL (5.8-8.1); Sodium 138 mmol/L (136-145)
[2023-07-19 17:27] LABS: Acetaminophen Less than 10 mcg/mL (10.0-30.0); Alcohol Less than 10.0 mg/dL (Less than 10); Salicylate Less than 8.0 mg/dL (15.0-30.0)
== END 2023-07-19 18:56 | disposition home or self-care (01) ==
LOC: ERS 15:03
DX: M86.272 Subacute osteomyelitis, left ankle and foot (principal); I48.20 Chronic atrial fibrillation, unspecified; I25.10 Atherosclerotic heart disease of native coronary artery without angina pectoris; I11.0 Hypertensive heart disease with heart failure; J44.9 Chronic obstructive pulmonary disease, unspecified; E03.9 Hypothyroidism, unspecified; K21.9 Gastro-esophageal reflux disease without esophagitis; E11.22 Type 2 diabetes mellitus with diabetic chronic kidney disease; N18.31 Chronic kidney disease, stage 3a; I13.10 Hypertensive heart and chronic kidney disease without heart failure, with stage 1 through stage 4 chronic kidney disease, or unspecified chronic kidney disease; I50.9 Heart failure, unspecified; F17.210 Nicotine dependence, cigarettes, uncomplicated
CPT/HCPCS: 36415; 80053; 80162; 80306; 80307; 83605; 85025; 87040; 87070; 87205; 93005; 96374; J2270

== ENCOUNTER 2023-08-09 17:53 | Emergency (ER) | payer OTHER, MEDICAID | END 2023-08-09 19:17 | LOC: ERS 17:53 | DX: M86.172 Other acute osteomyelitis, left ankle and foot (principal); I25.10 Atherosclerotic heart disease of native coronary artery without angina pectoris; I13.0 Hypertensive heart and chronic kidney disease with heart failure and stage 1 through stage 4 chronic kidney disease, or unspecified chronic kidney disease; I50.9 Heart failure, unspecified; N18.30 Chronic kidney disease, stage 3 unspecified; E11.22 Type 2 diabetes mellitus with diabetic chronic kidney disease; K21.9 Gastro-esophageal reflux disease without esophagitis; E03.9 Hypothyroidism, unspecified; F17.210 Nicotine dependence, cigarettes, uncomplicated; Z79.82 Long term (current) use of aspirin; Z79.84 Long term (current) use of oral hypoglycemic drugs; Z79.899 Other long term (current) drug therapy | CPT/HCPCS: 99283 ==

== ENCOUNTER 2023-09-01 10:42 | Inpatient (IN) | payer OTHER, MEDICAID ==
[2023-09-01] MEDS ORDERED: Iopamidol-370 76% 500 ML MDV (1 ML CHARGE) ONE (11:02)
[2023-09-01 13:40] LABS: #Basophils 0.1 thou/uL (0.0-0.2); #Eosinphils 0.6 thou/uL (0.0-0.7); #Monocytes 1.1 thou/uL (0.11-0.59); #Neutrophils 10.2 thou/uL (1.40-6.50); %Basophils 0.5 % (0.0-1.0); %Eosinophils 4.2 % (0.0-10.0); %Lymphocytes 9.5 % (21.0-51.0); %Monocytes 8.2 % (0.0-10.0); %Neutrophils 77.2 % (42.0-75.0); Hematocrit 34.3 % (42.0-52.0); Hemoglobin 10.9 g/dL (14.0-18.0); Mean Corpuscular HGB CONC 31.8 g/dL (32.0-36.0); Mean Corpuscular Hemoglobin 27.1 pg (27.0-31.0); Mean Corpuscular Volume 85.3 fl (78.0-98.0); Platelet Count 441 10x3/uL (130-400); RBC Distribution Width 16.7 % (11.5-14.5); Red Blood Cell (RBC) Count 4.02 mill/uL (4.70-6.10); White Blood Cell (WBC) Count 13.2 10x3/uL (4.8-10.8)
[2023-09-01 14:07] LABS: ALT (SGPT) 22 U/L (8-55); AST (SGOT) 21 U/L (5-34); Albumin 4.2 g/dL (3.4-4.8); Alkaline Phosphatase 174 U/L (40-110); Anion Gap 16 mmol/L (10-20); BUN (Urea Nitrogen) 32 mg/dL (8.4-25.7); Bilirubin, Total 0.7 mg/dL (0.2-1.2); Calc. Creatinine Clearance 0 mL/min (70-130); Calcium 9.8 mg/dL (7.8-10.44); Carbon Dioxide 25 mmol/L (23-31); Chloride 99 mmol/L (98-107); Estimated GFR 61; Globulin 3.7 g/dL (2.4-3.5); Glucose 152 mg/dL (83-110); Potassium 4.3 mmol/L (3.5-5.1); Protein, Total 7.9 g/dL (5.8-8.1); Sodium 136 mmol/L (136-145)
[2023-09-01] MEDS ORDERED: fentaNYL 50 mcg/mL 1 mL Vial ONE (14:57)
[2023-09-01] MEDS ORDERED: Piperacillin/Tazobactam 3.375 GM VIAL ONE (18:15)
[2023-09-01] MEDS ORDERED: Sodium Chloride 0.9% 100 ML ONE (18:15)
[2023-09-01] MEDS ORDERED: Morphine 4 MG/ML VIAL ONE (18:46)
[2023-09-01] MEDS ORDERED: Morphine 4 MG/ML VIAL SLOW IVP PRN (20:32)
[2023-09-01] MEDS ORDERED: Ondansetron PF 4 MG/2 ML Vial IVP PRN ×2 (20:45→21:23)
[2023-09-01] MEDS ORDERED: Ondansetron ODT 4 MG TAB SL PRN (20:45)
[2023-09-01] MEDS ORDERED: cefTRIAXone\\ROCEPHIN 1 GM in Sodium Chloride 0.9% 100 ML IVPB SCH (21:00)
[2023-09-01] MEDS: Sodium Chloride 0.9% 1,000 ML IV SCH (21:15)
[2023-09-01 21:18] VITALS: BMI 24.3
[2023-09-01] MEDS ORDERED: Glucagon 1 MG/ML KIT IM PRN (21:20)
[2023-09-01] MEDS ORDERED: Dextrose 50% Abboject 50 ML SYRINGE SLOW IVP PRN (21:20)
[2023-09-01] MEDS ORDERED: Dextrose 5% in Water 1,000 ML IV PRN (21:20)
[2023-09-01] MEDS ORDERED: HumaLOG 300 UNITS/3 ML VIAL SC PRN ×2 (21:20)
[2023-09-01] MEDS ORDERED: Ondansetron ODT 4 MG TAB PO PRN (21:23)
[2023-09-01] MEDS ORDERED: Acetaminophen 325 MG TAB PO PRN (21:27)
[2023-09-01] MEDS ORDERED: Morphine 2 MG/ML VIAL SLOW IVP PRN (21:27)
[2023-09-01] MEDS ORDERED: Ipratropium/Albuterol 3 ML NEB NEB PRN (21:32)
[2023-09-01] MEDS ORDERED: Polyethylene Glycol 3350 17 GM Packet PO PRN (21:38)
[2023-09-01] MEDS ORDERED: Lorazepam 2 MG/ML VIAL SLOW IVP SCH (23:00)
[2023-09-02] MEDS: Morphine 4 MG/ML VIAL SLOW IVP PRN ×3 (01:34→21:50)
[2023-09-02] MEDS: busPIRone HCl 5 MG TAB PO SCH ×3 (05:49→20:54)
[2023-09-02] MEDS: Sodium Chloride 0.9% 1,000 ML IV SCH (05:49)
[2023-09-02 06:39] LABS: Anion Gap 15 mmol/L (10-20); BUN (Urea Nitrogen) 27 mg/dL (8.4-25.7); Calc. Creatinine Clearance 71 mL/min (70-130); Calcium 9.4 mg/dL (7.8-10.44); Carbon Dioxide 26 mmol/L (23-31); Chloride 104 mmol/L (98-107); Estimated GFR 67; Glucose 97 mg/dL (83-110); Potassium 4.1 mmol/L (3.5-5.1); Sodium 141 mmol/L (136-145)
[2023-09-02 07:11] LABS: #Basophils 0.1 thou/uL (0.0-0.2); #Eosinphils 0.3 thou/uL (0.0-0.7); #Monocytes 1.6 thou/uL (0.11-0.59); #Neutrophils 11.3 thou/uL (1.40-6.50); %Basophils 0.5 % (0.0-1.0); %Eosinophils 1.9 % (0.0-10.0); %Lymphocytes 10.2 % (21.0-51.0); %Monocytes 10.9 % (0.0-10.0); Hematocrit 29.7 % (42.0-52.0); Hemoglobin 9.4 g/dL (14.0-18.0); Mean Corpuscular HGB CONC 31.6 g/dL (32.0-36.0); Mean Corpuscular Hemoglobin 27.2 pg (27.0-31.0); Mean Corpuscular Volume 86.1 fl (78.0-98.0); Mean Platelet Volume 12.3 fL (7.4-10.4); Platelet Count 379 10x3/uL (130-400); RBC Distribution Width 16.8 % (11.5-14.5); Red Blood Cell (RBC) Count 3.45 mill/uL (4.70-6.10); White Blood Cell (WBC) Count 14.9 10x3/uL (4.8-10.8)
[2023-09-02] MEDS ORDERED: VANCOMYCIN IVPB PRN (07:52)
[2023-09-02] MEDS ORDERED: Piperacillin/Tazobactam 3.375 GM in Sodium Chloride 0.9% 100 ML IVPB SCH (08:00)
[2023-09-02] MEDS: Piperacillin/Tazobactam 3.375 GM in Sodium Chloride 0.9% 100 ML IVPB SCH ×2 (08:37→21:08)
[2023-09-02] MEDS: Digoxin 0.125 MG TAB PO SCH (08:38)
[2023-09-02] MEDS: Torsemide 20 MG TAB PO SCH ×2 (08:38→20:54)
[2023-09-02] MEDS ORDERED: Albuterol 200 PUFF (6.7GM INHALER) INH PRN (08:48)
[2023-09-02] MEDS ORDERED: Vancomycin 1.25 GM in Sodium Chloride 0.9% 250 ML 300 ML IVPB SCH (09:00)
[2023-09-02] MEDS: Lisinopril 10 MG TAB PO SCH (09:44)
[2023-09-02] MEDS: Lorazepam 0.5 MG TAB PO SCH ×3 (09:44→20:54)
[2023-09-02] MEDS: Aspirin 81 mg Enteric Coated Tablet PO SCH (09:44)
[2023-09-02] MEDS: Vancomycin (BATCH) 1.5 GM in Premix 1 BAG IVPB SCH (09:50)
[2023-09-02] MEDS: HYDROcodone/Acetaminophen 5/325 mg Tablet PO PRN (14:36)
[2023-09-02] MEDS: Atorvastatin Calcium 40 MG TAB PO SCH (20:54)
[2023-09-02 22:24] LABS: Bacteria/HPF None Seen HPF (None Seen); Bilirubin Negative (Negative); Blood, Urine Negative (Negative); CAUTI Indications for Culture Fever or rigors; Clarity Clear (Clear); Glucose, Urine (Dipstick) Normal (Negative); Ketone, Urine Negative (Negative); Leukocyte Negative Leu/uL (Negative); Nitrite Negative (Negative); Protein, Urine (Dipstick) Negative (Neg-Trace); RBC/HPF 0-3 HPF (0-3); Squamous Epithelial None Seen HPF (0-3); Urobilinogen Normal mg/dL (Less than 2); WBC/HPF 0-3 HPF (0-3)
[2023-09-02 22:26] LABS: Urine Culture Reflex No No
[2023-09-03] MEDS: Morphine 4 MG/ML VIAL SLOW IVP PRN ×3 (00:08→16:57)
[2023-09-03] MEDS: Piperacillin/Tazobactam 3.375 GM in Sodium Chloride 0.9% 100 ML IVPB SCH ×2 (04:34→11:06)
[2023-09-03 06:07] LABS: #Basophils 0.1 thou/uL (0.0-0.2); #Eosinphils 0.4 thou/uL (0.0-0.7); #Monocytes 1.2 thou/uL (0.11-0.59); #Neutrophils 9.4 thou/uL (1.40-6.50); %Basophils 0.5 % (0.0-1.0); %Eosinophils 3.4 % (0.0-10.0); %Lymphocytes 8.9 % (21.0-51.0); %Monocytes 9.9 % (0.0-10.0); %Neutrophils 76.8 % (42.0-75.0); Hematocrit 28.3 % (42.0-52.0); Hemoglobin 9.1 g/dL (14.0-18.0); Mean Corpuscular HGB CONC 32.2 g/dL (32.0-36.0); Mean Corpuscular Hemoglobin 27.2 pg (27.0-31.0); Mean Corpuscular Volume 84.5 fl (78.0-98.0); Mean Platelet Volume 11.3 fL (7.4-10.4); Platelet Count 341 10x3/uL (130-400); RBC Distribution Width 16.9 % (11.5-14.5); Red Blood Cell (RBC) Count 3.35 mill/uL (4.70-6.10); White Blood Cell (WBC) Count 12.2 10x3/uL (4.8-10.8)
[2023-09-03] MEDS: busPIRone HCl 5 MG TAB PO SCH ×2 (06:22→18:55)
[2023-09-03] MEDS: Torsemide 20 MG TAB PO SCH ×2 (09:40→20:24)
[2023-09-03] MEDS: Aspirin 81 mg Enteric Coated Tablet PO SCH (09:40)
[2023-09-03] MEDS: Lisinopril 10 MG TAB PO SCH (09:40)
[2023-09-03] MEDS: Digoxin 0.125 MG TAB PO SCH (09:40)
[2023-09-03] MEDS: Lorazepam 0.5 MG TAB PO SCH ×3 (09:40→20:24)
[2023-09-03] MEDS: Vancomycin (BATCH) 1.5 GM in Premix 1 BAG IVPB SCH (10:01)
[2023-09-03] MEDS: HYDROcodone/Acetaminophen 5/325 mg Tablet PO PRN ×3 (11:05→20:24)
[2023-09-03] MEDS: Atorvastatin Calcium 40 MG TAB PO SCH (20:24)
[2023-09-04] MEDS: Morphine 4 MG/ML VIAL SLOW IVP PRN (01:46)
[2023-09-04] MEDS: HYDROcodone/Acetaminophen 5/325 mg Tablet PO PRN (03:55)
[2023-09-04] MEDS: busPIRone HCl 5 MG TAB PO SCH ×2 (06:00→17:59)
[2023-09-04 06:53] LABS: #Basophils 0.1 thou/uL (0.0-0.2); #Eosinphils 0.7 thou/uL (0.0-0.7); #Monocytes 0.9 thou/uL (0.11-0.59); #Neutrophils 5.7 thou/uL (1.40-6.50); %Basophils 0.6 % (0.0-1.0); %Eosinophils 7.8 % (0.0-10.0); %Lymphocytes 12.5 % (21.0-51.0); %Monocytes 10.3 % (0.0-10.0); %Neutrophils 68.2 % (42.0-75.0); Hematocrit 26.9 % (42.0-52.0); Hemoglobin 8.6 g/dL (14.0-18.0); Mean Corpuscular Hemoglobin 27.1 pg (27.0-31.0); Mean Corpuscular Volume 84.9 fl (78.0-98.0); Mean Platelet Volume 10.9 fL (7.4-10.4); Platelet Count 349 10x3/uL (130-400); RBC Distribution Width 16.6 % (11.5-14.5); Red Blood Cell (RBC) Count 3.17 mill/uL (4.70-6.10); White Blood Cell (WBC) Count 8.4 10x3/uL (4.8-10.8)
[2023-09-04 07:15] LABS: Anion Gap 14 mmol/L (10-20); BUN (Urea Nitrogen) 25 mg/dL (8.4-25.7); Calc. Creatinine Clearance 70 mL/min (70-130); Calcium 8.8 mg/dL (7.8-10.44); Carbon Dioxide 27 mmol/L (23-31); Chloride 104 mmol/L (98-107); Estimated GFR 66; Glucose 107 mg/dL (83-110); Potassium 3.4 mmol/L (3.5-5.1); Sodium 142 mmol/L (136-145)
[2023-09-04] MEDS ORDERED: Vancomycin (BATCH) 1.5 GM in Premix 1 BAG IVPB SCH (08:15)
[2023-09-04] MEDS: Lisinopril 10 MG TAB PO SCH (08:50)
[2023-09-04] MEDS: Lorazepam 0.5 MG TAB PO SCH ×3 (08:50→22:20)
[2023-09-04] MEDS: Aspirin 81 mg Enteric Coated Tablet PO SCH (08:50)
[2023-09-04] MEDS: Torsemide 20 MG TAB PO SCH ×2 (08:50→22:20)
[2023-09-04 08:55] LABS: Vancomycin, Trough 14.8 ug/mL
[2023-09-04] MEDS: Digoxin 0.125 MG TAB PO SCH (08:58)
[2023-09-04] MEDS: Vancomycin (BATCH) 1.5 GM in Premix 1 BAG IVPB SCH (12:13)
[2023-09-04] MEDS: Atorvastatin Calcium 40 MG TAB PO SCH (22:20)
[2023-09-05] MEDS: HYDROcodone/Acetaminophen 5/325 mg Tablet PO PRN ×4 (00:45→20:54)
[2023-09-05 05:38] LABS: #Basophils 0.1 thou/uL (0.0-0.2); #Eosinphils 0.7 thou/uL (0.0-0.7); #Monocytes 0.9 thou/uL (0.11-0.59); #Neutrophils 6.4 thou/uL (1.40-6.50); %Basophils 0.5 % (0.0-1.0); %Eosinophils 7.8 % (0.0-10.0); %Lymphocytes 13.7 % (21.0-51.0); %Monocytes 9.5 % (0.0-10.0); %Neutrophils 68.1 % (42.0-75.0); Hematocrit 30.3 % (42.0-52.0); Hemoglobin 9.7 g/dL (14.0-18.0); Mean Corpuscular Hemoglobin 26.9 pg (27.0-31.0); Mean Corpuscular Volume 84.2 fl (78.0-98.0); Mean Platelet Volume 10.7 fL (7.4-10.4); Platelet Count 380 10x3/uL (130-400); RBC Distribution Width 16.4 % (11.5-14.5); White Blood Cell (WBC) Count 9.4 10x3/uL (4.8-10.8)
[2023-09-05 06:00] LABS: Anion Gap 13 mmol/L (10-20); BUN (Urea Nitrogen) 27 mg/dL (8.4-25.7); Calc. Creatinine Clearance 76 mL/min (70-130); Calcium 9.7 mg/dL (7.8-10.44); Carbon Dioxide 29 mmol/L (23-31); Chloride 101 mmol/L (98-107); Estimated GFR 73; Glucose 121 mg/dL (83-110); Potassium 3.6 mmol/L (3.5-5.1); Sodium 139 mmol/L (136-145)
[2023-09-05] MEDS: Torsemide 20 MG TAB PO SCH ×2 (07:49→20:51)
[2023-09-05] MEDS: Lisinopril 10 MG TAB PO SCH (07:49)
[2023-09-05] MEDS: Lorazepam 0.5 MG TAB PO SCH ×3 (07:49→20:51)
[2023-09-05] MEDS: Aspirin 81 mg Enteric Coated Tablet PO SCH (07:49)
[2023-09-05] MEDS: busPIRone HCl 5 MG TAB PO SCH (07:50)
[2023-09-05] MEDS: Vancomycin (BATCH) 1.5 GM in Premix 1 BAG IVPB SCH (10:43)
[2023-09-05] MEDS: Atorvastatin Calcium 40 MG TAB PO SCH (20:51)
[2023-09-05] MEDS: Linezolid 600 MG TAB PO SCH (20:51)
[2023-09-06 04:21] LABS: Anion Gap 16 mmol/L (10-20); BUN (Urea Nitrogen) 29 mg/dL (8.4-25.7); Calc. Creatinine Clearance 69 mL/min (70-130); Carbon Dioxide 27 mmol/L (23-31); Chloride 100 mmol/L (98-107); Estimated GFR 65; Glucose 108 mg/dL (83-110); Potassium 4.1 mmol/L (3.5-5.1); Sodium 139 mmol/L (136-145)
[2023-09-06] MEDS: HYDROcodone/Acetaminophen 5/325 mg Tablet PO PRN ×3 (04:44→21:11)
[2023-09-06] MEDS: Aspirin 81 mg Enteric Coated Tablet PO SCH (08:46)
[2023-09-06] MEDS: Linezolid 600 MG TAB PO SCH ×2 (08:46→21:11)
[2023-09-06] MEDS: Torsemide 20 MG TAB PO SCH ×2 (08:46→21:11)
[2023-09-06] MEDS: Lorazepam 0.5 MG TAB PO SCH ×3 (08:46→21:11)
[2023-09-06] MEDS: Lisinopril 10 MG TAB PO SCH (08:46)
[2023-09-06 09:00] LABS: Vancomycin, Trough 13.1 ug/mL
[2023-09-06] MEDS: Atorvastatin Calcium 40 MG TAB PO SCH (21:11)
[2023-09-07] MEDS: HYDROcodone/Acetaminophen 5/325 mg Tablet PO PRN ×4 (01:11→20:22)
[2023-09-07] MEDS: Lisinopril 10 MG TAB PO SCH (08:27)
[2023-09-07] MEDS: Lorazepam 0.5 MG TAB PO SCH ×3 (08:27→20:22)
[2023-09-07] MEDS: Linezolid 600 MG TAB PO SCH ×2 (08:27→20:22)
[2023-09-07] MEDS: Aspirin 81 mg Enteric Coated Tablet PO SCH (08:27)
[2023-09-07] MEDS: Torsemide 20 MG TAB PO SCH (08:27)
[2023-09-07 09:32] LABS: Anion Gap 16 mmol/L (10-20); BUN (Urea Nitrogen) 34 mg/dL (8.4-25.7); Calc. Creatinine Clearance 59 mL/min (70-130); Calcium 9.6 mg/dL (7.8-10.44); Carbon Dioxide 25 mmol/L (23-31); Chloride 99 mmol/L (98-107); Estimated GFR 53; Glucose 162 mg/dL (83-110); Potassium 4.3 mmol/L (3.5-5.1); Sodium 136 mmol/L (136-145)
[2023-09-07] MEDS: Atorvastatin Calcium 40 MG TAB PO SCH (20:22)
[2023-09-08 07:27] LABS: Anion Gap 12 mmol/L (10-20); BUN (Urea Nitrogen) 34 mg/dL (8.4-25.7); Calc. Creatinine Clearance 56 mL/min (70-130); Calcium 9.8 mg/dL (7.8-10.44); Carbon Dioxide 32 mmol/L (23-31); Chloride 98 mmol/L (98-107); Estimated GFR 50; Glucose 143 mg/dL (83-110); Potassium 4.5 mmol/L (3.5-5.1); Sodium 137 mmol/L (136-145)
[2023-09-08] MEDS: Linezolid 600 MG TAB PO SCH ×2 (08:45→20:45)
[2023-09-08] MEDS: Aspirin 81 mg Enteric Coated Tablet PO SCH (08:45)
[2023-09-08] MEDS: HYDROcodone/Acetaminophen 5/325 mg Tablet PO PRN ×3 (08:45→20:46)
[2023-09-08] MEDS: Lorazepam 0.5 MG TAB PO SCH ×3 (08:45→20:46)
[2023-09-08] MEDS: Lisinopril 10 MG TAB PO SCH (08:45)
[2023-09-08] MEDS ORDERED: Sodium Chloride 0.9% 500 ML IV SCH (12:00)
[2023-09-08] MEDS: Atorvastatin Calcium 40 MG TAB PO SCH (20:46)
[2023-09-08] MEDS: Zolpidem Tartrate 5 MG TAB PO PRN (22:00)
[2023-09-09] MEDS: HYDROcodone/Acetaminophen 5/325 mg Tablet PO PRN ×4 (00:35→20:06)
[2023-09-09] MEDS: Aspirin 81 mg Enteric Coated Tablet PO SCH (07:41)
[2023-09-09] MEDS: Lisinopril 10 MG TAB PO SCH (07:42)
[2023-09-09] MEDS: Linezolid 600 MG TAB PO SCH ×2 (07:43→20:05)
[2023-09-09] MEDS: Lorazepam 0.5 MG TAB PO SCH ×3 (07:43→20:05)
[2023-09-09] MEDS: Atorvastatin Calcium 40 MG TAB PO SCH (20:04)
[2023-09-09] MEDS: Zolpidem Tartrate 5 MG TAB PO PRN (20:07)
[2023-09-10] MEDS: HYDROcodone/Acetaminophen 5/325 mg Tablet PO PRN ×3 (04:10→13:43)
[2023-09-10] MEDS: Lorazepam 0.5 MG TAB PO SCH ×2 (08:31→13:42)
[2023-09-10] MEDS: Linezolid 600 MG TAB PO SCH (08:33)
[2023-09-10] MEDS: Lisinopril 10 MG TAB PO SCH (08:33)
[2023-09-10] MEDS: Aspirin 81 mg Enteric Coated Tablet PO SCH (08:34)
[2023-09-10 12:01] VITALS: BP 105/55; TEMP 97.3
== END 2023-09-10 15:46 | DRG 564 ==
LOC: ERS 10:42 → T4-B 18:03 → OBSVTOIN 09-02 15:05
PROVIDERS: ADMIT Surgery; ATTEND Surgery
DX: T87.44 Infection of amputation stump, left lower extremity (principal); A41.02 Sepsis due to Methicillin resistant Staphylococcus aureus; I50.22 Chronic systolic (congestive) heart failure; I13.0 Hypertensive heart and chronic kidney disease with heart failure and stage 1 through stage 4 chronic kidney disease, or unspecified chronic kidney disease; I48.0 Paroxysmal atrial fibrillation; I25.10 Atherosclerotic heart disease of native coronary artery without angina pectoris; J44.9 Chronic obstructive pulmonary disease, unspecified; E03.9 Hypothyroidism, unspecified; G20.A1 Parkinson's disease without dyskinesia, without mention of fluctuations; N18.30 Chronic kidney disease, stage 3 unspecified; M10.9 Gout, unspecified; E11.22 Type 2 diabetes mellitus with diabetic chronic kidney disease; F17.210 Nicotine dependence, cigarettes, uncomplicated; E11.42 Type 2 diabetes mellitus with diabetic polyneuropathy; E11.51 Type 2 diabetes mellitus with diabetic peripheral angiopathy without gangrene; Y83.8 Other surgical procedures as the cause of abnormal reaction of the patient, or of later complication, without mention of misadventure at the time of the procedure; Z95.1 Presence of aortocoronary bypass graft
CPT/HCPCS: 36415; 36416; 71045; 80048; 80053; 80202; 81001; 83605; 85025; 86140; 87040; 87070; 87077; 87186; 87205; 96361; 96365; 96375; 96376; 97139; G0378; J0696; J1650; J2060; J2270; J2272; J2543; J3010; J3370; J3490; J7050; Q9967

== ENCOUNTER 2023-09-17 10:30 | Emergency (ER) | payer OTHER, MEDICAID ==
[2023-09-17 11:00] LABS: #Basophils 0.1 thou/uL (0.0-0.2); #Eosinphils 0.3 thou/uL (0.0-0.7); #Monocytes 0.4 thou/uL (0.11-0.59); #Neutrophils 5.9 thou/uL (1.40-6.50); %Basophils 0.8 % (0.0-1.0); %Eosinophils 4.1 % (0.0-10.0); %Lymphocytes 11.9 % (21.0-51.0); %Monocytes 5.1 % (0.0-10.0); %Neutrophils 77.7 % (42.0-75.0); Hematocrit 29.7 % (42.0-52.0); Hemoglobin 9.3 g/dL (14.0-18.0); Mean Corpuscular HGB CONC 31.3 g/dL (32.0-36.0); Mean Corpuscular Volume 86.3 fl (78.0-98.0); Mean Platelet Volume 10.2 fL (7.4-10.4); Platelet Count 287 10x3/uL (130-400); RBC Distribution Width 16.5 % (11.5-14.5); Red Blood Cell (RBC) Count 3.44 mill/uL (4.70-6.10); White Blood Cell (WBC) Count 7.6 10x3/uL (4.8-10.8)
[2023-09-17 11:22] LABS: ALT (SGPT) 18 U/L (8-55); AST (SGOT) 13 U/L (5-34); Albumin 4.1 g/dL (3.4-4.8); Alkaline Phosphatase 115 U/L (40-110); Anion Gap 15 mmol/L (10-20); BUN (Urea Nitrogen) 30 mg/dL (8.4-25.7); Bilirubin, Total 0.5 mg/dL (0.2-1.2); Calc. Creatinine Clearance 0 mL/min (70-130); Calcium 9.9 mg/dL (7.8-10.44); Carbon Dioxide 26 mmol/L (23-31); Chloride 101 mmol/L (98-107); Estimated GFR 56; Globulin 3.1 g/dL (2.4-3.5); Glucose 131 mg/dL (83-110); Potassium 4.6 mmol/L (3.5-5.1); Protein, Total 7.2 g/dL (5.8-8.1); Sodium 137 mmol/L (136-145)
== END 2023-09-17 13:26 ==
LOC: ERS 10:30
DX: Z48.01 Encounter for change or removal of surgical wound dressing (principal); I25.10 Atherosclerotic heart disease of native coronary artery without angina pectoris; I13.0 Hypertensive heart and chronic kidney disease with heart failure and stage 1 through stage 4 chronic kidney disease, or unspecified chronic kidney disease; E11.22 Type 2 diabetes mellitus with diabetic chronic kidney disease; N18.31 Chronic kidney disease, stage 3a; I50.9 Heart failure, unspecified; E11.40 Type 2 diabetes mellitus with diabetic neuropathy, unspecified; J44.9 Chronic obstructive pulmonary disease, unspecified; K21.9 Gastro-esophageal reflux disease without esophagitis; F17.210 Nicotine dependence, cigarettes, uncomplicated; Z79.899 Other long term (current) drug therapy; Z79.84 Long term (current) use of oral hypoglycemic drugs; Z79.82 Long term (current) use of aspirin
CPT/HCPCS: 36415; 80053; 85025; 99283

== ENCOUNTER 2023-10-19 09:15 | Inpatient (IN) | payer OTHER, MEDICAID ==
[2023-10-19] MEDS ORDERED: LORazepam 2 MG/ML SYR.(CARPUJECT) ONE (09:40)
[2023-10-19 10:33] LABS: #Basophils 0.1 thou/uL (0.0-0.2); #Monocytes 1.6 thou/uL (0.11-0.59); #Neutrophils 15.4 thou/uL (1.40-6.50); %Basophils 0.6 % (0.0-1.0); %Eosinophils 0.2 % (0.0-10.0); %Lymphocytes 8.5 % (21.0-51.0); %Monocytes 8.4 % (0.0-10.0); Hematocrit 24.8 % (42.0-52.0); Hemoglobin 7.6 g/dL (14.0-18.0); Mean Corpuscular HGB CONC 30.6 g/dL (32.0-36.0); Mean Corpuscular Volume 81.6 fl (78.0-98.0); Mean Platelet Volume 10.3 fL (7.4-10.4); Platelet Count 529 10x3/uL (130-400); RBC Distribution Width 17.3 % (11.5-14.5); Red Blood Cell (RBC) Count 3.04 mill/uL (4.70-6.10)
[2023-10-19 10:44] LABS: ALT (SGPT) 15 U/L (8-55); AST (SGOT) 26 U/L (5-34); Albumin 3.9 g/dL (3.4-4.8); Alkaline Phosphatase 100 U/L (40-110); Anion Gap 31 mmol/L (10-20); BUN (Urea Nitrogen) 37 mg/dL (8.4-25.7); Bilirubin, Total 1.1 mg/dL (0.2-1.2); CK (CPK) 332 U/L (30-200); Calc. Creatinine Clearance 0 mL/min (70-130); Calcium 10.1 mg/dL (7.8-10.44); Carbon Dioxide 13 mmol/L (23-31); Chloride 101 mmol/L (98-107); Estimated GFR 37; Globulin 3.1 g/dL (2.4-3.5); Glucose 99 mg/dL (83-110); Potassium 5.6 mmol/L (3.5-5.1); Sodium 139 mmol/L (136-145)
[2023-10-19] MEDS ORDERED: Haloperidol Lactate 5 MG/ML VIAL ONE ×2 (11:16→13:05)
[2023-10-19 11:42] LABS: Acetaminophen Less than 10 mcg/mL (10.0-30.0); Alcohol Less than 10.0 mg/dL (Less than 10); Critical Call Chem-Lactate NUR.JH15@1145; Lipase 29 U/L (8-78); Salicylate Less than 8.0 mg/dL (15.0-30.0)
[2023-10-19 11:46] LABS: Troponin I 0.122 ng/mL (< 0.028)
[2023-10-19 12:13] LABS: Amphetamine Detected (NotDetected); Barbiturates Screen Not Detected (NotDetected); Benzodiazepine Screen Detected (NotDetected); Cocaine Metabolite Screen Not Detected (NotDetected); Methadone Not Detected (NotDetected); Methamphetamine Detected (NotDetected); Opiate Screen Detected (NotDetected); Oxycodone Screen Not Detected (NotDetected); Phencyclidine (PCP) Not Detected (NotDetected); THC/Cannabinoid Screen Not Detected (NotDetected); Tricyclic Screen Not Detected (NotDetected)
[2023-10-19] MEDS ORDERED: Sodium Chloride 0.9% 100 ML ONE (12:16)
[2023-10-19] MEDS ORDERED: Cefepime 2 GM VIAL ONE (12:16)
[2023-10-19] MEDS ORDERED: Vancomycin 1 GM/200 ML (FROZEN) BAG ONE (12:39)
[2023-10-19] MEDS ORDERED: Midazolam HCl 5 mg/ml Vial ONE (14:00)
[2023-10-19] MEDS ORDERED: Ondansetron ODT 4 MG TAB PO PRN (14:16)
[2023-10-19] MEDS ORDERED: Acetaminophen 325 MG TAB PO PRN (14:16)
[2023-10-19] MEDS ORDERED: Ondansetron PF 4 MG/2 ML Vial IVP PRN (14:16)
[2023-10-19] MEDS ORDERED: Cefepime 1 GM in Sodium Chloride 0.9% 100 ML IVPB SCH (14:30)
[2023-10-19 15:01] LABS: Critical Call Chem-Lactate ERS.JAN@1500; Lactic Acid 11.3 mmol/L (0.5-2.2)
[2023-10-19] MEDS ORDERED: Glucagon 1 MG/ML KIT IM PRN (15:08)
[2023-10-19] MEDS ORDERED: Dextrose 50% Abboject 50 ML SYRINGE SLOW IVP PRN (15:08)
[2023-10-19] MEDS ORDERED: Dextrose 5% in Water 1,000 ML IV PRN (15:08)
[2023-10-19] MEDS ORDERED: Sodium Chloride 0.9% 500 ML IV SCH (15:15)
[2023-10-19] MEDS: Sodium Chloride 0.9% 1,000 ML IV SCH ×2 (16:24→19:47)
[2023-10-19 16:28] LABS: Bacteria/HPF None Seen HPF (None Seen); Bilirubin Negative (Negative); Blood, Urine Negative (Negative); CAUTI Indications for Culture Alt mental st,lethar; Clarity Clear (Clear); Glucose, Urine (Dipstick) Normal (Negative); Ketone, Urine Trace mg/dL (Negative); Leukocyte Negative Leu/uL (Negative); Nitrite Negative (Negative); Protein, Urine (Dipstick) 20 mg/dL (Neg-Trace); RBC/HPF 0-3 HPF (0-3); Specific Gravity, Urine 1.017 (1.002-1.036); Squamous Epithelial 0-3 HPF (0-3); Urobilinogen Normal mg/dL (Less than 2); WBC/HPF 0-3 HPF (0-3)
[2023-10-19 16:30] LABS: Urine Culture Reflex No No
[2023-10-19] MEDS ORDERED: Electrolyte Replacement Protocol 1 EACH FS SCH (16:30)
[2023-10-19] MEDS ORDERED: Dextrose 10% in Water 250 ML ONE (17:27)
[2023-10-19 17:52] LABS: Analyzer IN Cardio ER; Base Excess -11.8 mEq/L (-2.0 to +3.0); Calcium, Ionized (venous) 1.09 mmol/L (1.16-1.32); Chloride (VBG) 105 mmol/L (98-106); Hematocrit-VBG 20 % (42.0-52.0); Hemoglobin (Hb) 6.8 g/dL (12.6-17.4); Potassium (VBG) 5.94 mmol/L (3.70-5.30); Sodium 141 mmol/L (133-146); pH (venous) 7.334 (7.32-7.43)
[2023-10-19 17:53] LABS: Actual Bicarbonate (HCO3v) 12.9 mEq/L (22-28)
[2023-10-19] MEDS ORDERED: Ziprasidone 20 MG VIAL ONE (17:55)
[2023-10-19] MEDS ORDERED: Sterile Water 10 ML ONE (17:56)
[2023-10-19] MEDS ORDERED: Ziprasidone 20 MG VIAL IM SCH (18:00)
[2023-10-19] MEDS ORDERED: Sodium Bicarb 50 mEq/50 ML VIAL ONE (18:13)
[2023-10-19 18:15] LABS: Critical Call Chem-Lactate NUR.ST17@1815
[2023-10-19] MEDS ORDERED: Sodium Bicarb 50 mEq/50 ML VIAL IVP SCH ×2 (18:15→19:45)
[2023-10-19] MEDS ORDERED: Vancomycin 1 GM in Premix 1 BAG IVPB SCH (18:30)
[2023-10-19 19:13] LABS: BUN (Urea Nitrogen) 38 mg/dL (8.4-25.7); Calc. Creatinine Clearance 47 mL/min (70-130); Chloride 105 mmol/L (98-107); Estimated GFR 41; Glucose 111 mg/dL (83-110); Sodium 136 mmol/L (136-145)
[2023-10-19 19:30] LABS: Carbon Dioxide Less than 8 mmol/L (23-31); Critical Call Chemistry NUR.DLH2@1930; Potassium 6.5 mmol/L (3.5-5.1)
[2023-10-19 19:44] LABS: Base Excess (BEa) -12.8 mEq/L (-2.0 to +3.0); Calcium, Ionized (arterial) 1.11 mmol/L (1.12-1.30); Carboxyhemoglobin (COHb) 0.9 gm% (0.0-3.0); Hematocrit-ABG 20 % (42.0-52.0); Hemoglobin (Hb) 6.8 g/dL (14.0-18.0); Potassium - ABG Lab 5.64 mmol/L (3.70-5.30); pH, Arterial 7.402 (7.35-7.45)
[2023-10-19] MEDS ORDERED: Dexmedetomidine In 0.9 % NaCl 100 ML IVPB SCH (19:45)
[2023-10-19] MEDS ORDERED: Calcium Gluc 4.6 MEQ/10 ML (100 MG/ML) SLOW IVP SCH (19:45)
[2023-10-19] MEDS ORDERED: Insulin Regular 300 UNITS/3 ML VIAL IVP SCH (19:45)
[2023-10-19 19:49] LABS: O2 Tension (PaO2), arterial 53.5 mmHg (> 70.0)
[2023-10-19 19:50] LABS: Puncture Site RBA
[2023-10-19] MEDS: Sodium Bicarbonate 150 MEQ in Dextrose 5% in Water 1,000 ML IV SCH (20:18)
[2023-10-19] MEDS: Dexmedetomidine 400 MCG, Admixture Fee 1 EACH in Sodium Chloride 0.9% 96 ML IVPB SCH (20:19)
[2023-10-19] MEDS ORDERED: Lorazepam 2 MG/ML VIAL ONE (20:52)
[2023-10-19 21:51] LABS: Critical Call Chem-Lactate REHAB.HL@2150; Lactic Acid 15.5 mmol/L (0.5-2.2)
[2023-10-19 22:35] LABS: Anion Gap 24 mmol/L (10-20); BUN (Urea Nitrogen) 43 mg/dL (8.4-25.7); Calc. Creatinine Clearance 47 mL/min (70-130); Calcium 9.1 mg/dL (7.8-10.44); Carbon Dioxide 17 mmol/L (23-31); Chloride 105 mmol/L (98-107); Estimated GFR 41; Glucose 78 mg/dL (83-110); Sodium 141 mmol/L (136-145)
[2023-10-19 22:46] LABS: Critical Call Chem-Lactate NUR.SLH2@2245
[2023-10-20] MEDS: Cefepime 2 GM in Sodium Chloride 0.9% 100 ML IVPB SCH ×2 (00:38→12:31)
[2023-10-20] MEDS ORDERED: Acetaminophen 650 MG Suppository PR PRN (02:53)
[2023-10-20 04:53] LABS: #Monocytes 1.4 thou/uL (0.11-0.59); %Basophils 0.1 % (0.0-1.0); %Eosinophils 0.1 % (0.0-10.0); %Lymphocytes 8.9 % (21.0-51.0); %Monocytes 10.1 % (0.0-10.0); %Neutrophils 79.9 % (42.0-75.0); Hematocrit 17.9 % (42.0-52.0); Hemoglobin 5.7 g/dL (14.0-18.0); Mean Corpuscular HGB CONC 31.8 g/dL (32.0-36.0); Mean Corpuscular Hemoglobin 24.9 pg (27.0-31.0); Mean Platelet Volume 10.5 fL (7.4-10.4); Platelet Count 459 10x3/uL (130-400); RBC Distribution Width 16.9 % (11.5-14.5); Red Blood Cell (RBC) Count 2.29 mill/uL (4.70-6.10); White Blood Cell (WBC) Count 13.8 10x3/uL (4.8-10.8)
[2023-10-20 04:58] LABS: Mean Corpuscular Volume 78.2 fl (78.0-98.0)
[2023-10-20 05:13] LABS: Lactic Acid 2.1 mmol/L (0.5-2.2)
[2023-10-20] MEDS: Sodium Bicarbonate 150 MEQ in Dextrose 5% in Water 1,000 ML IV SCH (05:19)
[2023-10-20 05:21] LABS: ALT (SGPT) 550 U/L (8-55); AST (SGOT) 861 U/L (5-34); Albumin 3.2 g/dL (3.4-4.8); Alkaline Phosphatase 80 U/L (40-110); Anion Gap 12 mmol/L (10-20); BUN (Urea Nitrogen) 42 mg/dL (8.4-25.7); Bilirubin, Total 1.2 mg/dL (0.2-1.2); Calc. Creatinine Clearance 54 mL/min (70-130); Calcium 8.7 mg/dL (7.8-10.44); Carbon Dioxide 28 mmol/L (23-31); Chloride 104 mmol/L (98-107); Estimated GFR 48; Globulin 2.3 g/dL (2.4-3.5); Glucose 147 mg/dL (83-110); Potassium 4.1 mmol/L (3.5-5.1); Protein, Total 5.5 g/dL (5.8-8.1); Sodium 140 mmol/L (136-145)
[2023-10-20 06:31] LABS: INR-International Normal Ratio 1.9; Prothrombin Time 22.4 sec (12.0-14.7)
[2023-10-20 06:32] LABS: PTT 35.1 sec (22.9-36.1)
[2023-10-20 06:40] LABS: Iron 14 ug/dL (65-175); Iron Binding Capacity, Total 254 mcg/dL (261-462)
[2023-10-20] MEDS: Dexmedetomidine 400 MCG, Admixture Fee 1 EACH in Sodium Chloride 0.9% 96 ML IVPB SCH ×2 (08:31→23:29)
[2023-10-20] MEDS ORDERED: Famotidine/PF 20 mg/2ml Vial SLOW IVP SCH (09:00)
[2023-10-20] MEDS: Vancomycin (BATCH) 1.25 GM in Premix 1 BAG IVPB SCH (12:31)
[2023-10-20 13:12] LABS: Glucose 164 mg/dL (83-110)
[2023-10-20] MEDS: Sodium Chloride 0.9% 1,000 ML IV SCH (13:27)
[2023-10-20] MEDS ORDERED: Pantoprazole 40 MG VIAL IVP SCH (14:45)
[2023-10-20 15:13] LABS: Hematocrit 25.9 % (42.0-52.0); Hemoglobin 8.5 g/dL (14.0-18.0)
[2023-10-20] MEDS: Ampicillin/Sulbactam 3 GM in Sodium Chloride 0.9% 100 ML IVPB SCH ×2 (17:51→23:30)
[2023-10-20] MEDS: Lorazepam 2 MG/ML VIAL SLOW IVP PRN (20:08)
[2023-10-21] MEDS: Sodium Chloride 0.9% 1,000 ML IV SCH ×2 (01:55→13:48)
[2023-10-21] MEDS: Lorazepam 2 MG/ML VIAL SLOW IVP PRN ×4 (02:59→21:43)
[2023-10-21 04:28] LABS: #Eosinphils 0.2 thou/uL (0.0-0.7); #Monocytes 0.7 thou/uL (0.11-0.59); #Neutrophils 9.6 thou/uL (1.40-6.50); %Basophils 0.4 % (0.0-1.0); %Eosinophils 1.6 % (0.0-10.0); %Monocytes 6.3 % (0.0-10.0); %Neutrophils 84.9 % (42.0-75.0); Hematocrit 26.1 % (42.0-52.0); Hemoglobin 8.2 g/dL (14.0-18.0); Mean Corpuscular HGB CONC 31.4 g/dL (32.0-36.0); Mean Corpuscular Hemoglobin 26.3 pg (27.0-31.0); Mean Platelet Volume 10.2 fL (7.4-10.4); Platelet Count 403 10x3/uL (130-400); RBC Distribution Width 17.7 % (11.5-14.5); Red Blood Cell (RBC) Count 3.12 mill/uL (4.70-6.10); White Blood Cell (WBC) Count 11.3 10x3/uL (4.8-10.8)
[2023-10-21 04:33] LABS: Mean Corpuscular Volume 83.7 fl (78.0-98.0)
[2023-10-21 04:55] LABS: ALT (SGPT) 861 U/L (8-55); AST (SGOT) 724 U/L (5-34); Alkaline Phosphatase 88 U/L (40-110); Anion Gap 12 mmol/L (10-20); BUN (Urea Nitrogen) 28 mg/dL (8.4-25.7); Bilirubin, Total 1.8 mg/dL (0.2-1.2); Calc. Creatinine Clearance 80 mL/min (70-130); Calcium 8.4 mg/dL (7.8-10.44); Carbon Dioxide 27 mmol/L (23-31); Chloride 110 mmol/L (98-107); Estimated GFR 77; Globulin 2.2 g/dL (2.4-3.5); Glucose 127 mg/dL (83-110); Potassium 3.6 mmol/L (3.5-5.1); Protein, Total 5.2 g/dL (5.8-8.1); Sodium 145 mmol/L (136-145)
[2023-10-21] MEDS: Ampicillin/Sulbactam 3 GM in Sodium Chloride 0.9% 100 ML IVPB SCH ×3 (06:19→17:43)
[2023-10-21] MEDS: Pantoprazole 40 MG VIAL IVP SCH (08:23)
[2023-10-21 11:11] LABS: CO2 Tension 17.4 mmHg (35.0-45.0)
[2023-10-21 11:12] LABS: Actual Bicarbonate (HCO3a) 10.6 mEq/L (22-28)
[2023-10-21 13:31] LABS: Vancomycin, Trough 8.9 ug/mL
[2023-10-21] MEDS: Vancomycin (BATCH) 1.25 GM in Premix 1 BAG IVPB SCH (13:47)
[2023-10-21 15:10] LABS: #Eosinphils 0.1 thou/uL (0.0-0.7); #Monocytes 0.7 thou/uL (0.11-0.59); #Neutrophils 9.4 thou/uL (1.40-6.50); %Basophils 0.4 % (0.0-1.0); %Eosinophils 1.3 % (0.0-10.0); %Lymphocytes 6.7 % (21.0-51.0); %Neutrophils 85.1 % (42.0-75.0); Hematocrit 26.3 % (42.0-52.0); Hemoglobin 8.3 g/dL (14.0-18.0); Mean Corpuscular HGB CONC 31.6 g/dL (32.0-36.0); Mean Corpuscular Hemoglobin 27.1 pg (27.0-31.0); Mean Corpuscular Volume 85.9 fl (78.0-98.0); Mean Platelet Volume 10.6 fL (7.4-10.4); Platelet Count 427 10x3/uL (130-400); RBC Distribution Width 18.1 % (11.5-14.5); Red Blood Cell (RBC) Count 3.06 mill/uL (4.70-6.10); White Blood Cell (WBC) Count 11.1 10x3/uL (4.8-10.8)
[2023-10-21 15:12] LABS: Platelet Count 438 10x3/uL (130-400)
[2023-10-21 15:36] LABS: ALT (SGPT) 779 U/L (8-55); AST (SGOT) 451 U/L (5-34); Albumin 2.8 g/dL (3.4-4.8); Alkaline Phosphatase 90 U/L (40-110); Bilirubin, Direct 0.8 mg/dL (0.1-0.3); Bilirubin, Total 1.5 mg/dL (0.2-1.2); Protein, Total 5.3 g/dL (5.8-8.1)
[2023-10-21 15:40] LABS: INR-International Normal Ratio 1.5; Prothrombin Time 18.5 sec (12.0-14.7)
[2023-10-21 15:41] LABS: Fibrinogen 387 mg/dL (253-463); PTT 30.5 sec (22.9-36.1)
[2023-10-21 15:44] LABS: D-Dimer Test 3.71 *mcg/mL (0.27-0.43)
[2023-10-21] MEDS ORDERED: QUEtiapine 25 MG TAB PO SCH (22:30)
[2023-10-22] MEDS: Ampicillin/Sulbactam 3 GM in Sodium Chloride 0.9% 100 ML IVPB SCH ×5 (00:58→23:50)
[2023-10-22] MEDS: Dexmedetomidine 400 MCG, Admixture Fee 1 EACH in Sodium Chloride 0.9% 96 ML IVPB SCH (01:00)
[2023-10-22] MEDS: Vancomycin HCl 750 MG in Sodium Chloride 0.9% 250 ML 250 ML IVPB SCH ×2 (02:07→13:32)
[2023-10-22] MEDS: Sodium Chloride 0.9% 1,000 ML IV SCH (02:08)
[2023-10-22] MEDS: Pantoprazole 40 MG VIAL IVP SCH (08:50)
[2023-10-22 09:15] LABS: #Basophils 0.1 thou/uL (0.0-0.2); #Eosinphils 0.3 thou/uL (0.0-0.7); #Monocytes 0.7 thou/uL (0.11-0.59); #Neutrophils 7.1 thou/uL (1.40-6.50); %Basophils 0.5 % (0.0-1.0); %Eosinophils 3.6 % (0.0-10.0); %Lymphocytes 10.6 % (21.0-51.0); %Monocytes 7.8 % (0.0-10.0); Hematocrit 32.1 % (42.0-52.0); Hemoglobin 9.6 g/dL (14.0-18.0); Mean Corpuscular HGB CONC 29.9 g/dL (32.0-36.0); Mean Corpuscular Hemoglobin 26.8 pg (27.0-31.0); Mean Platelet Volume 10.6 fL (7.4-10.4); Platelet Count 384 10x3/uL (130-400); RBC Distribution Width 19.3 % (11.5-14.5); Red Blood Cell (RBC) Count 3.58 mill/uL (4.70-6.10); White Blood Cell (WBC) Count 9.3 10x3/uL (4.8-10.8)
[2023-10-22 09:31] LABS: ALT (SGPT) 600 U/L (8-55); AST (SGOT) 217 U/L (5-34); Albumin 3.2 g/dL (3.4-4.8); Alkaline Phosphatase 105 U/L (40-110); Anion Gap 14 mmol/L (10-20); BUN (Urea Nitrogen) 17 mg/dL (8.4-25.7); Bilirubin, Total 1.7 mg/dL (0.2-1.2); Calc. Creatinine Clearance 100 mL/min (70-130); Calcium 8.2 mg/dL (7.8-10.44); Carbon Dioxide 21 mmol/L (23-31); Chloride 109 mmol/L (98-107); Estimated GFR 94; Globulin 2.9 g/dL (2.4-3.5); Glucose 122 mg/dL (83-110); Mean Corpuscular Volume 89.7 fl (78.0-98.0); Potassium 4.3 mmol/L (3.5-5.1); Protein, Total 6.1 g/dL (5.8-8.1); Sodium 140 mmol/L (136-145)
[2023-10-22] MEDS: Lorazepam 2 MG/ML VIAL SLOW IVP PRN ×2 (15:57→19:17)
[2023-10-22] MEDS ORDERED: QUEtiapine 25 MG TAB PO SCH (21:00)
[2023-10-23] MEDS: Vancomycin HCl 750 MG in Sodium Chloride 0.9% 250 ML 250 ML IVPB SCH ×2 (02:07→16:15)
[2023-10-23] MEDS: Lorazepam 2 MG/ML VIAL SLOW IVP PRN ×5 (03:52→21:11)
[2023-10-23] MEDS: Ampicillin/Sulbactam 3 GM in Sodium Chloride 0.9% 100 ML IVPB SCH ×3 (05:48→17:11)
[2023-10-23] MEDS: Pantoprazole 40 MG VIAL IVP SCH (07:35)
[2023-10-23 11:34] LABS: #Basophils 0.1 thou/uL (0.0-0.2); #Eosinphils 0.4 thou/uL (0.0-0.7); #Monocytes 0.9 thou/uL (0.11-0.59); #Neutrophils 7.3 thou/uL (1.40-6.50); %Basophils 0.6 % (0.0-1.0); %Eosinophils 4.3 % (0.0-10.0); %Lymphocytes 11.4 % (21.0-51.0); %Monocytes 8.9 % (0.0-10.0); %Neutrophils 74.2 % (42.0-75.0); Hematocrit 34.9 % (42.0-52.0); Hemoglobin 10.8 g/dL (14.0-18.0); Mean Corpuscular HGB CONC 30.9 g/dL (32.0-36.0); Mean Corpuscular Hemoglobin 26.3 pg (27.0-31.0); Mean Corpuscular Volume 84.9 fl (78.0-98.0); Mean Platelet Volume 10.6 fL (7.4-10.4); Platelet Count 380 10x3/uL (130-400); RBC Distribution Width 19.3 % (11.5-14.5); Red Blood Cell (RBC) Count 4.11 mill/uL (4.70-6.10); White Blood Cell (WBC) Count 9.9 10x3/uL (4.8-10.8)
[2023-10-23] MEDS ORDERED: Vancomycin HCl 750 MG in Sodium Chloride 0.9% 250 ML 250 ML IVPB SCH (11:45)
[2023-10-23 11:47] LABS: ALT (SGPT) 404 U/L (8-55); AST (SGOT) 80 U/L (5-34); Albumin 3.4 g/dL (3.4-4.8); Alkaline Phosphatase 115 U/L (40-110); Anion Gap 14 mmol/L (10-20); BUN (Urea Nitrogen) 14 mg/dL (8.4-25.7); Bilirubin, Total 1.5 mg/dL (0.2-1.2); Calc. Creatinine Clearance 101 mL/min (70-130); Calcium 8.7 mg/dL (7.8-10.44); Carbon Dioxide 21 mmol/L (23-31); Chloride 111 mmol/L (98-107); Estimated GFR 93; Globulin 2.9 g/dL (2.4-3.5); Glucose 131 mg/dL (83-110); Potassium 4.2 mmol/L (3.5-5.1); Protein, Total 6.3 g/dL (5.8-8.1); Sodium 142 mmol/L (136-145)
[2023-10-23 12:10] LABS: Vancomycin, Trough 13.6 ug/mL
[2023-10-23] MEDS: QUEtiapine 25 MG TAB PO SCH (20:22)
[2023-10-23] MEDS: Dexmedetomidine 400 MCG, Admixture Fee 1 EACH in Sodium Chloride 0.9% 96 ML IVPB SCH (20:32)
[2023-10-23] MEDS ORDERED: Nicotine 14 MG PATCH TD SCH (21:15)
[2023-10-24] MEDS: Ampicillin/Sulbactam 3 GM in Sodium Chloride 0.9% 100 ML IVPB SCH ×5 (00:59→23:41)
[2023-10-24] MEDS: Vancomycin HCl 750 MG in Sodium Chloride 0.9% 250 ML 250 ML IVPB SCH ×2 (02:26→15:26)
[2023-10-24] MEDS ORDERED: hydrALAZINE 20 MG/ML VIAL SLOW IVP PRN (08:12)
[2023-10-24] MEDS: Pantoprazole 40 MG VIAL IVP SCH (08:29)
[2023-10-24] MEDS: Lorazepam 2 MG/ML VIAL SLOW IVP PRN ×3 (08:29→20:31)
[2023-10-24] MEDS: Nicotine 21 MG PATCH TD SCH (08:29)
[2023-10-24 10:47] LABS: ALT (SGPT) 280 U/L (8-55); AST (SGOT) 61 U/L (5-34); Albumin 3.3 g/dL (3.4-4.8); Alkaline Phosphatase 111 U/L (40-110); Anion Gap 19 mmol/L (10-20); BUN (Urea Nitrogen) 12 mg/dL (8.4-25.7); Bilirubin, Total 1.5 mg/dL (0.2-1.2); Calc. Creatinine Clearance 87 mL/min (70-130); Calcium 9.3 mg/dL (7.8-10.44); Carbon Dioxide 18 mmol/L (23-31); Chloride 112 mmol/L (98-107); Estimated GFR 81; Globulin 3.5 g/dL (2.4-3.5); Glucose 102 mg/dL (83-110); Potassium 5.3 mmol/L (3.5-5.1); Protein, Total 6.8 g/dL (5.8-8.1); Sodium 144 mmol/L (136-145)
[2023-10-24 10:56] LABS: #Eosinphils 0.6 thou/uL (0.0-0.7); #Monocytes 1.4 thou/uL (0.11-0.59); #Neutrophils 8.4 thou/uL (1.40-6.50); %Basophils 0.3 % (0.0-1.0); %Eosinophils 4.8 % (0.0-10.0); %Lymphocytes 9.5 % (21.0-51.0); %Monocytes 11.7 % (0.0-10.0); Hematocrit 34.8 % (42.0-52.0); Hemoglobin 10.8 g/dL (14.0-18.0); Mean Corpuscular Hemoglobin 26.5 pg (27.0-31.0); Mean Corpuscular Volume 85.3 fl (78.0-98.0); Mean Platelet Volume 11.2 fL (7.4-10.4); Platelet Count 366 10x3/uL (130-400); RBC Distribution Width 19.4 % (11.5-14.5); Red Blood Cell (RBC) Count 4.08 mill/uL (4.70-6.10); White Blood Cell (WBC) Count 11.6 10x3/uL (4.8-10.8)
[2023-10-24] MEDS ORDERED: Ipratropium/Albuterol 3 ML NEB NEB PRN (13:19)
[2023-10-24 15:15] LABS: Erythropoietin 34.1 mIU/mL (2.6-18.5)
[2023-10-24] MEDS: QUEtiapine 25 MG TAB PO SCH (20:30)
[2023-10-24] MEDS: Morphine 2 MG/ML VIAL SLOW IVP PRN (21:01)
[2023-10-25] MEDS ORDERED: Ketorolac Tromethamine 30 MG (1 mL) VIAL IVP SCH (00:15)
[2023-10-25] MEDS: Vancomycin HCl 750 MG in Sodium Chloride 0.9% 250 ML 250 ML IVPB SCH ×2 (01:21→12:50)
[2023-10-25] MEDS: Acetaminophen/Codeine 30-300mg Tablet PO PRN (02:07)
[2023-10-25] MEDS: Lorazepam 2 MG/ML VIAL SLOW IVP PRN (04:03)
[2023-10-25] MEDS: Ampicillin/Sulbactam 3 GM in Sodium Chloride 0.9% 100 ML IVPB SCH ×3 (05:54→17:13)
[2023-10-25] MEDS: Pantoprazole 40 MG VIAL IVP SCH (08:30)
[2023-10-25] MEDS: Nicotine 21 MG PATCH TD SCH (08:30)
[2023-10-25] MEDS: Morphine 2 MG/ML VIAL SLOW IVP PRN ×2 (11:44→17:13)
[2023-10-25 12:39] LABS: #Basophils 0.1 thou/uL (0.0-0.2); #Eosinphils 0.4 thou/uL (0.0-0.7); #Monocytes 0.8 thou/uL (0.11-0.59); #Neutrophils 6.7 thou/uL (1.40-6.50); %Basophils 0.6 % (0.0-1.0); %Eosinophils 4.3 % (0.0-10.0); %Neutrophils 74.5 % (42.0-75.0); Hemoglobin 9.5 g/dL (14.0-18.0); Mean Corpuscular HGB CONC 30.6 g/dL (32.0-36.0); Mean Corpuscular Hemoglobin 26.8 pg (27.0-31.0); Mean Corpuscular Volume 87.6 fl (78.0-98.0); Mean Platelet Volume 10.3 fL (7.4-10.4); Platelet Count 402 10x3/uL (130-400); RBC Distribution Width 19.7 % (11.5-14.5); Red Blood Cell (RBC) Count 3.54 mill/uL (4.70-6.10); White Blood Cell (WBC) Count 8.9 10x3/uL (4.8-10.8)
[2023-10-25 12:57] LABS: Vancomycin, Trough 15.6 ug/mL
[2023-10-25 13:02] LABS: Anion Gap 17 mmol/L (10-20); BUN (Urea Nitrogen) 9 mg/dL (8.4-25.7); CRP (Inflammatory) 3.27 mg/dL (= or < 0.5); Calc. Creatinine Clearance 94 mL/min (70-130); Calcium 8.6 mg/dL (7.8-10.44); Carbon Dioxide 19 mmol/L (23-31); Chloride 110 mmol/L (98-107); Estimated GFR 87; Glucose 140 mg/dL (83-110); Potassium 3.8 mmol/L (3.5-5.1); Sodium 142 mmol/L (136-145)
[2023-10-25 13:03] LABS: ALT (SGPT) 189 U/L (8-55); AST (SGOT) 23 U/L (5-34); Albumin 3.1 g/dL (3.4-4.8); Alkaline Phosphatase 108 U/L (40-110); Bilirubin, Direct 0.6 mg/dL (0.1-0.3); Bilirubin, Total 1.3 mg/dL (0.2-1.2)
[2023-10-25 14:00] LABS: Critical Call Chem Troponin I NUR.KD5 @1400; Troponin I 0.532 ng/mL (< 0.028)
[2023-10-25 17:38] LABS: Critical Call Chem Troponin I NUR.SM27 @1737; Troponin I 0.472 ng/mL (< 0.028)
[2023-10-25] MEDS: QUEtiapine 25 MG TAB PO SCH (22:22)
[2023-10-25] MEDS: Atorvastatin Calcium 40 MG TAB PO SCH (22:22)
[2023-10-26] MEDS: Ampicillin/Sulbactam 3 GM in Sodium Chloride 0.9% 100 ML IVPB SCH ×4 (00:57→17:10)
[2023-10-26] MEDS: Vancomycin HCl 750 MG in Sodium Chloride 0.9% 250 ML 250 ML IVPB SCH ×2 (01:58→13:06)
[2023-10-26 04:45] LABS: #Basophils 0.1 thou/uL (0.0-0.2); #Eosinphils 0.4 thou/uL (0.0-0.7); #Monocytes 0.8 thou/uL (0.11-0.59); #Neutrophils 6.2 thou/uL (1.40-6.50); %Basophils 0.6 % (0.0-1.0); %Eosinophils 4.3 % (0.0-10.0); %Lymphocytes 12.5 % (21.0-51.0); %Monocytes 9.7 % (0.0-10.0); %Neutrophils 72.3 % (42.0-75.0); Hematocrit 29.2 % (42.0-52.0); Hemoglobin 8.8 g/dL (14.0-18.0); Mean Corpuscular HGB CONC 30.1 g/dL (32.0-36.0); Mean Corpuscular Hemoglobin 26.2 pg (27.0-31.0); Mean Corpuscular Volume 86.9 fl (78.0-98.0); Mean Platelet Volume 10.4 fL (7.4-10.4); Platelet Count 374 10x3/uL (130-400); RBC Distribution Width 19.8 % (11.5-14.5); Red Blood Cell (RBC) Count 3.36 mill/uL (4.70-6.10); White Blood Cell (WBC) Count 8.6 10x3/uL (4.8-10.8)
[2023-10-26] MEDS: Lorazepam 2 MG/ML VIAL SLOW IVP PRN ×2 (05:10→13:53)
[2023-10-26 05:13] LABS: ALT (SGPT) 152 U/L (8-55); AST (SGOT) 21 U/L (5-34); Albumin 3.2 g/dL (3.4-4.8); Alkaline Phosphatase 95 U/L (40-110); Anion Gap 15 mmol/L (10-20); BUN (Urea Nitrogen) 10 mg/dL (8.4-25.7); Bilirubin, Total 1.3 mg/dL (0.2-1.2); CRP (Inflammatory) 2.32 mg/dL (= or < 0.5); Calc. Creatinine Clearance 94 mL/min (70-130); Calcium 8.4 mg/dL (7.8-10.44); Carbon Dioxide 20 mmol/L (23-31); Chloride 112 mmol/L (98-107); Estimated GFR 87; Globulin 2.6 g/dL (2.4-3.5); Glucose 112 mg/dL (83-110); Potassium 3.7 mmol/L (3.5-5.1); Protein, Total 5.8 g/dL (5.8-8.1); Sodium 143 mmol/L (136-145)
[2023-10-26] MEDS: Pantoprazole 40 MG VIAL IVP SCH (07:47)
[2023-10-26] MEDS: Nicotine 21 MG PATCH TD SCH (07:47)
[2023-10-26] MEDS ORDERED: Torsemide 20 MG TAB PO SCH ×2 (09:00→10:30)
[2023-10-26] MEDS ORDERED: QUEtiapine 25 MG TAB PO SCH (09:00)
[2023-10-26 10:19] LABS: Critical Call Chem Troponin I RESULT DECREASING; Troponin I 0.437 ng/mL (< 0.028)
[2023-10-26] MEDS: Torsemide 20 MG TAB PO SCH (10:31)
[2023-10-26] MEDS: Atorvastatin Calcium 40 MG TAB PO SCH (21:27)
[2023-10-26] MEDS: QUEtiapine 25 MG TAB PO SCH (21:27)
[2023-10-27] MEDS: Ampicillin/Sulbactam 3 GM in Sodium Chloride 0.9% 100 ML IVPB SCH ×4 (00:28→17:00)
[2023-10-27] MEDS: Acetaminophen/Codeine 30-300mg Tablet PO PRN ×2 (00:36→21:43)
[2023-10-27] MEDS: Vancomycin HCl 750 MG in Sodium Chloride 0.9% 250 ML 250 ML IVPB SCH ×2 (01:17→13:19)
[2023-10-27] MEDS: Lorazepam 2 MG/ML VIAL SLOW IVP PRN (04:23)
[2023-10-27 08:06] LABS: Anion Gap 15 mmol/L (10-20); BUN (Urea Nitrogen) 9 mg/dL (8.4-25.7); Calc. Creatinine Clearance 95 mL/min (70-130); Calcium 8.9 mg/dL (7.8-10.44); Carbon Dioxide 22 mmol/L (23-31); Chloride 110 mmol/L (98-107); Estimated GFR 88; Glucose 113 mg/dL (83-110); Potassium 3.7 mmol/L (3.5-5.1); Sodium 143 mmol/L (136-145)
[2023-10-27 08:21] LABS: #Basophils 0.1 thou/uL (0.0-0.2); #Eosinphils 0.5 thou/uL (0.0-0.7); #Monocytes 1.4 thou/uL (0.11-0.59); #Neutrophils 9.9 thou/uL (1.40-6.50); %Basophils 0.5 % (0.0-1.0); %Eosinophils 3.7 % (0.0-10.0); %Lymphocytes 9.2 % (21.0-51.0); %Monocytes 10.7 % (0.0-10.0); %Neutrophils 75.4 % (42.0-75.0); Mean Corpuscular HGB CONC 31.3 g/dL (32.0-36.0); Mean Corpuscular Volume 83.3 fl (78.0-98.0); Mean Platelet Volume 11.6 fL (7.4-10.4); Platelet Count 365 10x3/uL (130-400); RBC Distribution Width 19.8 % (11.5-14.5); Red Blood Cell (RBC) Count 3.84 mill/uL (4.70-6.10); White Blood Cell (WBC) Count 13.1 10x3/uL (4.8-10.8)
[2023-10-27] MEDS: Nicotine 21 MG PATCH TD SCH (09:28)
[2023-10-27] MEDS: Pantoprazole 40 MG VIAL IVP SCH (09:29)
[2023-10-27] MEDS: Torsemide 20 MG TAB PO SCH (09:29)
[2023-10-27] MEDS ORDERED: Digoxin 0.125 MG TAB PO SCH (10:15)
[2023-10-27] MEDS: QUEtiapine 25 MG TAB PO SCH (21:43)
[2023-10-27] MEDS: Atorvastatin Calcium 40 MG TAB PO SCH (21:43)
[2023-10-28] MEDS: Lorazepam 2 MG/ML VIAL SLOW IVP PRN (00:54)
[2023-10-28] MEDS: Ampicillin/Sulbactam 3 GM in Sodium Chloride 0.9% 100 ML IVPB SCH ×4 (00:54→17:16)
[2023-10-28] MEDS: Vancomycin HCl 750 MG in Sodium Chloride 0.9% 250 ML 250 ML IVPB SCH ×2 (02:52→13:06)
[2023-10-28 05:11] LABS: #Eosinphils 0.4 thou/uL (0.0-0.7); #Monocytes 0.7 thou/uL (0.11-0.59); #Neutrophils 4.2 thou/uL (1.40-6.50); %Basophils 0.6 % (0.0-1.0); %Eosinophils 6.4 % (0.0-10.0); %Lymphocytes 18.1 % (21.0-51.0); %Monocytes 10.9 % (0.0-10.0); %Neutrophils 63.4 % (42.0-75.0); Hematocrit 29.8 % (42.0-52.0); Hemoglobin 9.1 g/dL (14.0-18.0); Mean Corpuscular HGB CONC 30.5 g/dL (32.0-36.0); Mean Corpuscular Hemoglobin 26.1 pg (27.0-31.0); Mean Corpuscular Volume 85.4 fl (78.0-98.0); Mean Platelet Volume 10.9 fL (7.4-10.4); Platelet Count 381 10x3/uL (130-400); RBC Distribution Width 19.5 % (11.5-14.5); Red Blood Cell (RBC) Count 3.49 mill/uL (4.70-6.10); White Blood Cell (WBC) Count 6.6 10x3/uL (4.8-10.8)
[2023-10-28 05:44] LABS: ALT (SGPT) 82 U/L (8-55); AST (SGOT) 14 U/L (5-34); Albumin 3.2 g/dL (3.4-4.8); Alkaline Phosphatase 93 U/L (40-110); Anion Gap 10 mmol/L (10-20); BUN (Urea Nitrogen) 10 mg/dL (8.4-25.7); Bilirubin, Total 1.5 mg/dL (0.2-1.2); CRP (Inflammatory) 6.51 mg/dL (= or < 0.5); Calc. Creatinine Clearance 84 mL/min (70-130); Calcium 8.6 mg/dL (7.8-10.44); Carbon Dioxide 27 mmol/L (23-31); Chloride 107 mmol/L (98-107); Estimated GFR 76; Globulin 2.5 g/dL (2.4-3.5); Glucose 112 mg/dL (83-110); Potassium 3.4 mmol/L (3.5-5.1); Protein, Total 5.7 g/dL (5.8-8.1); Sodium 141 mmol/L (136-145)
[2023-10-28] MEDS ORDERED: Potassium Chloride 20 MEQ TAB PO SCH (06:00)
[2023-10-28] MEDS: Potassium Chloride 20 MEQ in Premix 1 BAG IVPB SCH ×2 (06:19→08:17)
[2023-10-28] MEDS: Digoxin 0.125 MG TAB PO SCH (08:20)
[2023-10-28] MEDS: Acetaminophen/Codeine 30-300mg Tablet PO PRN ×2 (08:21→20:35)
[2023-10-28] MEDS: Torsemide 20 MG TAB PO SCH (08:22)
[2023-10-28] MEDS: Nicotine 21 MG PATCH TD SCH (08:22)
[2023-10-28] MEDS: Pantoprazole 40 MG VIAL IVP SCH (08:22)
[2023-10-28 16:39] LABS: Bacteria/HPF None Seen HPF (None Seen); Bilirubin Negative (Negative); Blood, Urine Negative (Negative); CAUTI Indications for Culture Alt mental st,lethar; Clarity Clear (Clear); Glucose, Urine (Dipstick) Normal (Negative); Ketone, Urine Negative (Negative); Leukocyte Negative Leu/uL (Negative); Nitrite Negative (Negative); Protein, Urine (Dipstick) Negative (Neg-Trace); RBC/HPF 0-3 HPF (0-3); Specific Gravity, Urine 1.008 (1.002-1.036); Squamous Epithelial None Seen HPF (0-3); Urobilinogen Normal mg/dL (Less than 2); WBC/HPF 0-3 HPF (0-3); pH, Urine 6.5 (5.0-9.0)
[2023-10-28 16:49] LABS: Urine Culture Reflex No No
[2023-10-28] MEDS: Atorvastatin Calcium 40 MG TAB PO SCH (20:34)
[2023-10-28] MEDS: busPIRone HCl 5 MG TAB PO SCH (20:34)
[2023-10-28] MEDS: QUEtiapine 25 MG TAB PO SCH (20:34)
[2023-10-28] MEDS: Gabapentin 300 MG CAP PO SCH (20:35)
[2023-10-28] MEDS: Melatonin 3 MG TAB PO SCH (20:35)
[2023-10-29] MEDS: Ampicillin/Sulbactam 3 GM in Sodium Chloride 0.9% 100 ML IVPB SCH ×2 (00:49→05:53)
[2023-10-29] MEDS: Vancomycin HCl 750 MG in Sodium Chloride 0.9% 250 ML 250 ML IVPB SCH ×2 (01:15→14:56)
[2023-10-29 05:26] LABS: #Basophils 0.1 thou/uL (0.0-0.2); #Eosinphils 0.6 thou/uL (0.0-0.7); #Monocytes 0.6 thou/uL (0.11-0.59); #Neutrophils 3.6 thou/uL (1.40-6.50); %Basophils 0.8 % (0.0-1.0); %Eosinophils 9.3 % (0.0-10.0); %Lymphocytes 19.8 % (21.0-51.0); %Neutrophils 59.6 % (42.0-75.0); Hematocrit 28.2 % (42.0-52.0); Hemoglobin 8.8 g/dL (14.0-18.0); Mean Corpuscular HGB CONC 31.2 g/dL (32.0-36.0); Mean Corpuscular Hemoglobin 26.4 pg (27.0-31.0); Mean Corpuscular Volume 84.7 fl (78.0-98.0); Platelet Count 364 10x3/uL (130-400); RBC Distribution Width 19.2 % (11.5-14.5); Red Blood Cell (RBC) Count 3.33 mill/uL (4.70-6.10)
[2023-10-29 06:31] LABS: Anion Gap 14 mmol/L (10-20); BUN (Urea Nitrogen) 11 mg/dL (8.4-25.7); CRP (Inflammatory) 3.36 mg/dL (= or < 0.5); Calc. Creatinine Clearance 89 mL/min (70-130); Calcium 8.1 mg/dL (7.8-10.44); Carbon Dioxide 27 mmol/L (23-31); Chloride 105 mmol/L (98-107); Estimated GFR 80; Glucose 91 mg/dL (83-110); Potassium 3.7 mmol/L (3.5-5.1); Sodium 142 mmol/L (136-145)
[2023-10-29] MEDS: Meropenem 1 GM in Sodium Chloride 0.9% 100 ML IVPB SCH ×2 (09:10→16:06)
[2023-10-29] MEDS: Nicotine 21 MG PATCH TD SCH (09:10)
[2023-10-29] MEDS: Gabapentin 300 MG CAP PO SCH ×2 (09:11→20:22)
[2023-10-29] MEDS: Digoxin 0.125 MG TAB PO SCH (09:11)
[2023-10-29] MEDS: Aspirin 81 mg Enteric Coated Tablet PO SCH (09:11)
[2023-10-29] MEDS: Torsemide 20 MG TAB PO SCH (09:11)
[2023-10-29] MEDS: busPIRone HCl 5 MG TAB PO SCH ×2 (09:11→20:21)
[2023-10-29 10:35] VITALS: BMI 30.1
[2023-10-29] MEDS: Acetaminophen/Codeine 30-300mg Tablet PO PRN ×3 (11:31→21:37)
[2023-10-29] MEDS: QUEtiapine 25 MG TAB PO SCH (20:21)
[2023-10-29] MEDS: Atorvastatin Calcium 40 MG TAB PO SCH (20:21)
[2023-10-29] MEDS: Melatonin 3 MG TAB PO SCH (20:22)
[2023-10-30] MEDS: Meropenem 1 GM in Sodium Chloride 0.9% 100 ML IVPB SCH ×4 (00:21→23:12)
[2023-10-30] MEDS: Vancomycin HCl 750 MG in Sodium Chloride 0.9% 250 ML 250 ML IVPB SCH ×2 (04:39→17:52)
[2023-10-30] MEDS: Aspirin 81 mg Enteric Coated Tablet PO SCH (09:26)
[2023-10-30] MEDS: Torsemide 20 MG TAB PO SCH (09:27)
[2023-10-30] MEDS: Nicotine 21 MG PATCH TD SCH (09:27)
[2023-10-30] MEDS: busPIRone HCl 5 MG TAB PO SCH ×2 (09:27→22:14)
[2023-10-30] MEDS: Digoxin 0.125 MG TAB PO SCH (09:27)
[2023-10-30 12:04] LABS: #Eosinphils 0.5 thou/uL (0.0-0.7); #Monocytes 0.5 thou/uL (0.11-0.59); #Neutrophils 4.5 thou/uL (1.40-6.50); %Basophils 0.6 % (0.0-1.0); %Eosinophils 7.6 % (0.0-10.0); %Lymphocytes 12.1 % (21.0-51.0); %Monocytes 7.8 % (0.0-10.0); %Neutrophils 71.7 % (42.0-75.0); Mean Corpuscular Hemoglobin 26.5 pg (27.0-31.0); Mean Corpuscular Volume 85.5 fl (78.0-98.0); Mean Platelet Volume 10.3 fL (7.4-10.4); Platelet Count 388 10x3/uL (130-400); RBC Distribution Width 19.1 % (11.5-14.5); Red Blood Cell (RBC) Count 3.39 mill/uL (4.70-6.10); White Blood Cell (WBC) Count 6.3 10x3/uL (4.8-10.8)
[2023-10-30 12:22] LABS: ALT (SGPT) 46 U/L (8-55); AST (SGOT) 12 U/L (5-34); Albumin 3.1 g/dL (3.4-4.8); Alkaline Phosphatase 90 U/L (40-110); Anion Gap 11 mmol/L (10-20); BUN (Urea Nitrogen) 14 mg/dL (8.4-25.7); Bilirubin, Total 0.9 mg/dL (0.2-1.2); Calc. Creatinine Clearance 75 mL/min (70-130); Calcium 8.4 mg/dL (7.8-10.44); Carbon Dioxide 32 mmol/L (23-31); Chloride 102 mmol/L (98-107); Estimated GFR 66; Globulin 2.5 g/dL (2.4-3.5); Glucose 117 mg/dL (83-110); Potassium 3.9 mmol/L (3.5-5.1); Protein, Total 5.6 g/dL (5.8-8.1); Sodium 141 mmol/L (136-145)
[2023-10-30] MEDS: Gabapentin 300 MG CAP PO SCH ×2 (12:41→22:15)
[2023-10-30] MEDS ORDERED: Iopamidol 370 76% 100 ML VIAL ONE (13:48)
[2023-10-30] MEDS ORDERED: Vancomycin HCl 750 MG in Sodium Chloride 0.9% 250 ML 250 ML IVPB SCH ×2 (15:45→17:00)
[2023-10-30] MEDS: Morphine 2 MG/ML VIAL SLOW IVP PRN (17:24)
[2023-10-30 17:40] LABS: Vancomycin, Trough 16.2 ug/mL
[2023-10-30] MEDS: Melatonin 3 MG TAB PO SCH (22:14)
[2023-10-30] MEDS: Atorvastatin Calcium 40 MG TAB PO SCH (22:15)
[2023-10-30] MEDS: QUEtiapine 25 MG TAB PO SCH (22:16)
[2023-10-31 05:06] LABS: #Basophils 0.1 thou/uL (0.0-0.2); #Eosinphils 0.5 thou/uL (0.0-0.7); #Monocytes 0.6 thou/uL (0.11-0.59); #Neutrophils 4.1 thou/uL (1.40-6.50); %Basophils 0.8 % (0.0-1.0); %Eosinophils 8.4 % (0.0-10.0); %Lymphocytes 15.9 % (21.0-51.0); %Monocytes 8.9 % (0.0-10.0); %Neutrophils 65.5 % (42.0-75.0); Hematocrit 27.7 % (42.0-52.0); Hemoglobin 8.7 g/dL (14.0-18.0); Mean Corpuscular HGB CONC 31.4 g/dL (32.0-36.0); Mean Corpuscular Hemoglobin 26.3 pg (27.0-31.0); Mean Corpuscular Volume 83.7 fl (78.0-98.0); Mean Platelet Volume 11.4 fL (7.4-10.4); Platelet Count 371 10x3/uL (130-400); RBC Distribution Width 18.7 % (11.5-14.5); Red Blood Cell (RBC) Count 3.31 mill/uL (4.70-6.10); White Blood Cell (WBC) Count 6.2 10x3/uL (4.8-10.8)
[2023-10-31 05:19] LABS: ALT (SGPT) 36 U/L (8-55); AST (SGOT) 12 U/L (5-34); Albumin 2.8 g/dL (3.4-4.8); Alkaline Phosphatase 92 U/L (40-110); Anion Gap 11 mmol/L (10-20); BUN (Urea Nitrogen) 13 mg/dL (8.4-25.7); Bilirubin, Total 0.7 mg/dL (0.2-1.2); Calc. Creatinine Clearance 83 mL/min (70-130); Calcium 8.3 mg/dL (7.8-10.44); Carbon Dioxide 28 mmol/L (23-31); Chloride 104 mmol/L (98-107); Estimated GFR 75; Globulin 2.4 g/dL (2.4-3.5); Glucose 104 mg/dL (83-110); Potassium 3.9 mmol/L (3.5-5.1); Protein, Total 5.2 g/dL (5.8-8.1); Sodium 139 mmol/L (136-145)
[2023-10-31] MEDS: Vancomycin HCl 750 MG in Sodium Chloride 0.9% 250 ML 250 ML IVPB SCH ×2 (06:11→20:40)
[2023-10-31] MEDS: Meropenem 1 GM in Sodium Chloride 0.9% 100 ML IVPB SCH ×2 (09:14→17:02)
[2023-10-31] MEDS: Nicotine 21 MG PATCH TD SCH (09:15)
[2023-10-31] MEDS: Digoxin 0.125 MG TAB PO SCH (09:16)
[2023-10-31] MEDS: Gabapentin 300 MG CAP PO SCH ×2 (09:16→20:41)
[2023-10-31] MEDS: Aspirin 81 mg Enteric Coated Tablet PO SCH (09:16)
[2023-10-31] MEDS: busPIRone HCl 5 MG TAB PO SCH ×2 (09:16→20:42)
[2023-10-31] MEDS: Torsemide 20 MG TAB PO SCH (16:12)
[2023-10-31] MEDS: Acetaminophen/Codeine 30-300mg Tablet PO PRN (17:59)
[2023-10-31] MEDS: Atorvastatin Calcium 40 MG TAB PO SCH (20:41)
[2023-10-31] MEDS: Melatonin 3 MG TAB PO SCH (20:41)
[2023-10-31] MEDS: QUEtiapine 25 MG TAB PO SCH (20:42)
[2023-11-01] MEDS: Meropenem 1 GM in Sodium Chloride 0.9% 100 ML IVPB SCH ×3 (00:01→16:50)
[2023-11-01] MEDS: Acetaminophen/Codeine 30-300mg Tablet PO PRN ×3 (02:30→17:17)
[2023-11-01] MEDS: Vancomycin HCl 750 MG in Sodium Chloride 0.9% 250 ML 250 ML IVPB SCH ×2 (05:39→18:01)
[2023-11-01] MEDS: busPIRone HCl 5 MG TAB PO SCH ×2 (09:16→21:05)
[2023-11-01] MEDS: Aspirin 81 mg Enteric Coated Tablet PO SCH (09:16)
[2023-11-01] MEDS: Digoxin 0.125 MG TAB PO SCH (09:17)
[2023-11-01] MEDS: Gabapentin 300 MG CAP PO SCH ×2 (09:17→21:05)
[2023-11-01] MEDS: Nicotine 21 MG PATCH TD SCH (09:18)
[2023-11-01] MEDS: Torsemide 20 MG TAB PO SCH (09:18)
[2023-11-01] MEDS ORDERED: Vancomycin HCl 750 MG VIAL ONE (17:10)
[2023-11-01] MEDS: Atorvastatin Calcium 40 MG TAB PO SCH (21:05)
[2023-11-01] MEDS: Melatonin 3 MG TAB PO SCH (21:06)
[2023-11-01] MEDS: QUEtiapine 25 MG TAB PO SCH (21:06)
[2023-11-02] MEDS: Meropenem 1 GM in Sodium Chloride 0.9% 100 ML IVPB SCH ×4 (00:30→23:46)
[2023-11-02] MEDS: Vancomycin HCl 750 MG in Sodium Chloride 0.9% 250 ML 250 ML IVPB SCH ×2 (06:37→19:27)
[2023-11-02] MEDS: Nicotine 21 MG PATCH TD SCH (09:23)
[2023-11-02] MEDS: busPIRone HCl 5 MG TAB PO SCH ×2 (09:24→20:55)
[2023-11-02] MEDS: Digoxin 0.125 MG TAB PO SCH (09:24)
[2023-11-02] MEDS: Gabapentin 300 MG CAP PO SCH ×2 (09:24→20:56)
[2023-11-02] MEDS: Torsemide 20 MG TAB PO SCH (09:25)
[2023-11-02] MEDS: Aspirin 81 mg Enteric Coated Tablet PO SCH (09:26)
[2023-11-02] MEDS: Acetaminophen/Codeine 30-300mg Tablet PO PRN ×2 (17:05→21:02)
[2023-11-02] MEDS: Atorvastatin Calcium 40 MG TAB PO SCH (20:55)
[2023-11-02] MEDS: Melatonin 3 MG TAB PO SCH (20:55)
[2023-11-02] MEDS: QUEtiapine 25 MG TAB PO SCH (20:55)
[2023-11-03] MEDS: Acetaminophen/Codeine 30-300mg Tablet PO PRN ×2 (02:59→08:33)
[2023-11-03] MEDS: Morphine 2 MG/ML VIAL SLOW IVP PRN ×2 (04:17→21:38)
[2023-11-03] MEDS: Vancomycin HCl 750 MG in Sodium Chloride 0.9% 250 ML 250 ML IVPB SCH ×2 (06:00→17:54)
[2023-11-03 06:04] LABS: Vancomycin, Trough 20.8 ug/mL
[2023-11-03] MEDS: Digoxin 0.125 MG TAB PO SCH (08:32)
[2023-11-03] MEDS: Torsemide 20 MG TAB PO SCH (08:32)
[2023-11-03] MEDS: Gabapentin 300 MG CAP PO SCH ×2 (08:32→21:37)
[2023-11-03] MEDS: busPIRone HCl 5 MG TAB PO SCH ×2 (08:32→21:38)
[2023-11-03] MEDS: Aspirin 81 mg Enteric Coated Tablet PO SCH (08:33)
[2023-11-03] MEDS: Nicotine 21 MG PATCH TD SCH (08:35)
[2023-11-03] MEDS: Meropenem 1 GM in Sodium Chloride 0.9% 100 ML IVPB SCH ×2 (08:37→17:39)
[2023-11-03] MEDS: Melatonin 3 MG TAB PO SCH (21:38)
[2023-11-03] MEDS: QUEtiapine 25 MG TAB PO SCH (21:38)
[2023-11-03] MEDS: Atorvastatin Calcium 40 MG TAB PO SCH (21:38)
[2023-11-04] MEDS: Meropenem 1 GM in Sodium Chloride 0.9% 100 ML IVPB SCH ×2 (00:35→08:13)
[2023-11-04] MEDS: Vancomycin HCl 750 MG in Sodium Chloride 0.9% 250 ML 250 ML IVPB SCH (06:35)
[2023-11-04] MEDS: Digoxin 0.125 MG TAB PO SCH (09:05)
[2023-11-04] MEDS: Gabapentin 300 MG CAP PO SCH (09:06)
[2023-11-04] MEDS: busPIRone HCl 5 MG TAB PO SCH (09:06)
[2023-11-04] MEDS: Torsemide 20 MG TAB PO SCH (09:07)
[2023-11-04] MEDS: Aspirin 81 mg Enteric Coated Tablet PO SCH (09:07)
[2023-11-04 09:21] VITALS: BP 118/77; TEMP 98
[2023-11-04] MEDS: Nicotine 21 MG PATCH TD SCH (10:00)
== END 2023-11-04 14:14 | disposition home or self-care (01) | DRG 564 ==
LOC: ERS 09:15 → ERHOLD 14:24 → IMCU/EMU 19:33 → 2NO 10-25 16:32 → MSONC 10-31 15:03
PROVIDERS: ADMIT Student in an Organized Health Care Education/Training Program; ATTEND Family Medicine
PROC: 4A033R1 Measurement of Arterial Saturation, Peripheral, Percutaneous Approach (ICD-10-PCS; 2023-10-19)
PROC: 3E03329 Introduction of Other Anti-infective into Peripheral Vein, Percutaneous Approach (ICD-10-PCS; 2023-10-19)
PROC: 0T9B70Z Drainage of Bladder with Drainage Device, Via Natural or Artificial Opening (ICD-10-PCS; 2023-10-19)
PROC: 06HY33Z Insertion of Infusion Device into Lower Vein, Percutaneous Approach (ICD-10-PCS; 2023-10-19)
PROC: 30233N1 Transfusion of Nonautologous Red Blood Cells into Peripheral Vein, Percutaneous Approach (ICD-10-PCS; principal; 2023-10-20)
DX: T87.43 Infection of amputation stump, right lower extremity (principal); A41.9 Sepsis, unspecified organism; G93.41 Metabolic encephalopathy; I21.A1 Myocardial infarction type 2; R65.21 Severe sepsis with septic shock; L03.115 Cellulitis of right lower limb; I13.0 Hypertensive heart and chronic kidney disease with heart failure and stage 1 through stage 4 chronic kidney disease, or unspecified chronic kidney disease; N18.4 Chronic kidney disease, stage 4 (severe); N17.9 Acute kidney failure, unspecified; I50.22 Chronic systolic (congestive) heart failure; M62.82 Rhabdomyolysis; Z66 Do not resuscitate; T68.XXXA Hypothermia, initial encounter; J44.9 Chronic obstructive pulmonary disease, unspecified; I25.10 Atherosclerotic heart disease of native coronary artery without angina pectoris; K21.9 Gastro-esophageal reflux disease without esophagitis; M10.9 Gout, unspecified; E03.9 Hypothyroidism, unspecified; Z95.1 Presence of aortocoronary bypass graft; Z98.890 Other specified postprocedural states; E11.22 Type 2 diabetes mellitus with diabetic chronic kidney disease; Z79.82 Long term (current) use of aspirin; Z79.84 Long term (current) use of oral hypoglycemic drugs; F19.10 Other psychoactive substance abuse, uncomplicated; I48.0 Paroxysmal atrial fibrillation; E11.51 Type 2 diabetes mellitus with diabetic peripheral angiopathy without gangrene; Z88.8 Allergy status to other drugs, medicaments and biological substances; Z79.899 Other long term (current) drug therapy; Z89.512 Acquired absence of left leg below knee; E86.0 Dehydration; E87.5 Hyperkalemia; E11.42 Type 2 diabetes mellitus with diabetic polyneuropathy
CPT/HCPCS: 36415; 36416; 36430; 36600; 51702; 70450; 71045; 76705; 80048; 80053; 80076; 80202; 80306; 80307; 81001; 82140; 82550; 82565; 82607; 82668; 82728; 82805; 83010; 83540; 83550; 83605; 83615; 83690; 83880; 84145; 84484; 85025; 85046; 85049; 85300; 85362; 85379; 85384; 85610; 85730; 86140; 86850; 86900; 86901; 87040; 93005; 96365; 96367; 96374; 96375; 96376; 97139; C9113; J0295; J0360; J0612; J0692; J1630; J1815; J1885; J2060; J2185; J2250; J2272; J3370; J3370-JW; J3480; J3486; J3490; J7030; J7050; J7070; J7999; P9016; Q9967; S0028

== ENCOUNTER 2023-11-08 10:30 | Inpatient (IN) | payer OTHER, MEDICAID ==
[2023-11-08 11:31] LABS: #Basophils 0.1 thou/uL (0.0-0.2); #Eosinphils 0.1 thou/uL (0.0-0.7); #Monocytes 0.6 thou/uL (0.11-0.59); #Neutrophils 9.8 thou/uL (1.40-6.50); %Basophils 0.6 % (0.0-1.0); %Eosinophils 0.5 % (0.0-10.0); %Lymphocytes 5.6 % (21.0-51.0); %Neutrophils 87.9 % (42.0-75.0); Hematocrit 30.2 % (42.0-52.0); Hemoglobin 9.8 g/dL (14.0-18.0); Mean Corpuscular HGB CONC 32.5 g/dL (32.0-36.0); Mean Corpuscular Hemoglobin 26.1 pg (27.0-31.0); Mean Corpuscular Volume 80.5 fl (78.0-98.0); Mean Platelet Volume 11.2 fL (7.4-10.4); Platelet Count 394 10x3/uL (130-400); Red Blood Cell (RBC) Count 3.75 mill/uL (4.70-6.10); White Blood Cell (WBC) Count 11.1 10x3/uL (4.8-10.8)
[2023-11-08] MEDS ORDERED: Ondansetron PF 4 MG/2 ML Vial ONE (11:42)
[2023-11-08] MEDS ORDERED: Morphine 2 MG/ML VIAL ONE (11:42)
[2023-11-08 11:51] LABS: Acetaminophen Less than 10 mcg/mL (10.0-30.0); Alcohol Less than 10.0 mg/dL (Less than 10); Lipase 31 U/L (8-78); Magnesium 2.5 mg/dL (1.6-2.6); Salicylate Less than 8.0 mg/dL (15.0-30.0); Troponin I 0.068 ng/mL (< 0.028)
[2023-11-08 11:54] LABS: ALT (SGPT) 43 U/L (8-55); AST (SGOT) 50 U/L (5-34); Albumin 4.4 g/dL (3.4-4.8); Alkaline Phosphatase 158 U/L (40-110); Anion Gap 21 mmol/L (10-20); BUN (Urea Nitrogen) 42 mg/dL (8.4-25.7); Bilirubin, Total 2.3 mg/dL (0.2-1.2); CK (CPK) 965 U/L (30-200); Calc. Creatinine Clearance 0 mL/min (70-130); Calcium 10.4 mg/dL (7.8-10.44); Carbon Dioxide 26 mmol/L (23-31); Chloride 97 mmol/L (98-107); Estimated GFR 55; Globulin 3.2 g/dL (2.4-3.5); Glucose 92 mg/dL (83-110); Potassium 4.5 mmol/L (3.5-5.1); Protein, Total 7.6 g/dL (5.8-8.1); Sodium 139 mmol/L (136-145)
[2023-11-08 12:21] LABS: INR-International Normal Ratio 1.2; Prothrombin Time 15.3 sec (12.0-14.7)
[2023-11-08 12:22] LABS: PTT 36.8 sec (22.9-36.1)
[2023-11-08] MEDS ORDERED: Iopamidol 370 76% 100 ML VIAL ONE (13:07)
[2023-11-08] MEDS ORDERED: Sodium Chloride 0.9% 100 ML ONE (14:20)
[2023-11-08] MEDS ORDERED: Cefepime 2 GM VIAL ONE (14:20)
[2023-11-08] MEDS ORDERED: Vancomycin 1 GM/200 ML (FROZEN) BAG ONE (14:20)
[2023-11-08] MEDS ORDERED: LORazepam 2 MG/ML SYR.(CARPUJECT) ONE (14:58)
[2023-11-08] MEDS ORDERED: Ondansetron PF 4 MG/2 ML Vial IVP PRN (15:48)
[2023-11-08] MEDS ORDERED: Calcium Carbonate 500 MG ChewTAB PO PRN (15:48)
[2023-11-08] MEDS ORDERED: Acetaminophen 650 MG Suppository PR PRN (15:48)
[2023-11-08] MEDS ORDERED: Cefepime 1 GM in Sodium Chloride 0.9% 100 ML IVPB SCH ×2 (16:15→21:00)
[2023-11-08 16:18] LABS: Amphetamine Detected (NotDetected); Barbiturates Screen Not Detected (NotDetected); Benzodiazepine Screen Not Detected (NotDetected); Cocaine Metabolite Screen Not Detected (NotDetected); Methadone Not Detected (NotDetected); Methamphetamine Detected (NotDetected); Opiate Screen Detected (NotDetected); Oxycodone Screen Not Detected (NotDetected); Phencyclidine (PCP) Not Detected (NotDetected); THC/Cannabinoid Screen Not Detected (NotDetected); Tricyclic Screen Not Detected (NotDetected)
[2023-11-08] MEDS ORDERED: Dextrose 5% in Water 1,000 ML IV PRN (16:18)
[2023-11-08] MEDS ORDERED: Dextrose 50% Abboject 50 ML SYRINGE SLOW IVP PRN (16:18)
[2023-11-08] MEDS ORDERED: HumaLOG 300 UNITS/3 ML VIAL SC PRN ×2 (16:18)
[2023-11-08] MEDS ORDERED: Glucagon 1 MG/ML KIT IM PRN (16:18)
[2023-11-08 16:23] LABS: Bilirubin Negative (Negative); Blood, Urine 1+ (Negative); CAUTI Indications for Culture Alt mental st,lethar; Clarity Clear (Clear); Glucose, Urine (Dipstick) Normal (Negative); Ketone, Urine 10 mg/dL (Negative); Leukocyte 25 Leu/uL (Negative); Nitrite Negative (Negative); Protein, Urine (Dipstick) 20 mg/dL (Neg-Trace); RBC/HPF 0-3 HPF (0-3); Squamous Epithelial 0-3 HPF (0-3); Urobilinogen Normal mg/dL (Less than 2)
[2023-11-08 16:25] LABS: Bacteria/HPF 1+ HPF (None Seen)
[2023-11-08 16:26] LABS: Urine Culture Reflex No No
[2023-11-08 17:28] LABS: Troponin I 0.064 ng/mL (< 0.028)
[2023-11-08 20:49] LABS: Troponin I 0.068 ng/mL (< 0.028)
[2023-11-08] MEDS: Lorazepam 2 MG/ML VIAL SLOW IVP SCH (21:54)
[2023-11-08] MEDS: Meropenem 1 GM in Sodium Chloride 0.9% 100 ML IVPB SCH ×2 (22:02→23:26)
[2023-11-08] MEDS: Sodium Chloride 0.9% 1,000 ML IV SCH (22:03)
[2023-11-08] MEDS: Atorvastatin Calcium 40 MG TAB PO SCH (22:03)
[2023-11-08] MEDS: QUEtiapine 25 MG TAB PO SCH (22:04)
[2023-11-08] MEDS: busPIRone HCl 5 MG TAB PO SCH (22:04)
[2023-11-09] MEDS: Sodium Chloride 0.9% 1,000 ML IV SCH (02:44)
[2023-11-09] MEDS: Vancomycin HCl 750 MG in Sodium Chloride 0.9% 250 ML 250 ML IVPB SCH (03:02)
[2023-11-09] MEDS: Meropenem 1 GM in Sodium Chloride 0.9% 100 ML IVPB SCH (05:13)
[2023-11-09] MEDS: Mirabegron ER 25 MG ER.TAB PO SCH (08:38)
[2023-11-09] MEDS: Enoxaparin 40 MG (0.4 mL) SYRINGE SC SCH (08:38)
[2023-11-09] MEDS: Aspirin 81 mg Enteric Coated Tablet PO SCH (08:38)
[2023-11-09 08:41] LABS: #Eosinphils 0.4 thou/uL (0.0-0.7); #Monocytes 0.6 thou/uL (0.11-0.59); #Neutrophils 7.4 thou/uL (1.40-6.50); %Basophils 0.5 % (0.0-1.0); %Lymphocytes 4.5 % (21.0-51.0); %Monocytes 6.7 % (0.0-10.0); Hematocrit 30.2 % (42.0-52.0); Hemoglobin 9.5 g/dL (14.0-18.0); Mean Corpuscular HGB CONC 31.5 g/dL (32.0-36.0); Mean Corpuscular Volume 82.5 fl (78.0-98.0); Platelet Count 382 10x3/uL (130-400); RBC Distribution Width 18.1 % (11.5-14.5); Red Blood Cell (RBC) Count 3.66 mill/uL (4.70-6.10); White Blood Cell (WBC) Count 8.8 10x3/uL (4.8-10.8)
[2023-11-09] MEDS: Multivitamin W/ Minerals 1 TAB PO SCH (08:44)
[2023-11-09 09:08] LABS: ALT (SGPT) 41 U/L (8-55); AST (SGOT) 46 U/L (5-34); Albumin 3.8 g/dL (3.4-4.8); Alkaline Phosphatase 132 U/L (40-110); Anion Gap 13 mmol/L (10-20); BUN (Urea Nitrogen) 24 mg/dL (8.4-25.7); Bilirubin, Total 1.8 mg/dL (0.2-1.2); CK (CPK) 372 U/L (30-200); Calc. Creatinine Clearance 87 mL/min (70-130); Calcium 9.5 mg/dL (7.8-10.44); Carbon Dioxide 25 mmol/L (23-31); Chloride 107 mmol/L (98-107); Digoxin 0.55 ng/mL (0.8-2.0); Estimated GFR 91; Globulin 2.9 g/dL (2.4-3.5); Glucose 69 mg/dL (83-110); Magnesium 2.3 mg/dL (1.6-2.6); Potassium 4.1 mmol/L (3.5-5.1); Protein, Total 6.7 g/dL (5.8-8.1); Sodium 141 mmol/L (136-145)
[2023-11-09] MEDS: traMADol HCl 50 MG TAB PO PRN (12:32)
[2023-11-10 03:37] LABS: Vancomycin, Trough 9.3 ug/mL
[2023-11-10 04:24] LABS: ALT (SGPT) 39 U/L (8-55); AST (SGOT) 50 U/L (5-34); Albumin 3.3 g/dL (3.4-4.8); Alkaline Phosphatase 115 U/L (40-110); Anion Gap 19 mmol/L (10-20); BUN (Urea Nitrogen) 17 mg/dL (8.4-25.7); Calc. Creatinine Clearance 79 mL/min (70-130); Carbon Dioxide 16 mmol/L (23-31); Chloride 109 mmol/L (98-107); Estimated GFR 83; Glucose 81 mg/dL (83-110); Protein, Total 6.3 g/dL (5.8-8.1); Sodium 140 mmol/L (136-145)
[2023-11-10 04:37] LABS: #Eosinphils 0.2 thou/uL (0.0-0.7); #Monocytes 0.8 thou/uL (0.11-0.59); #Neutrophils 3.4 thou/uL (1.40-6.50); %Basophils 0.6 % (0.0-1.0); %Lymphocytes 15.1 % (21.0-51.0); %Monocytes 15.3 % (0.0-10.0); %Neutrophils 64.4 % (42.0-75.0); Hematocrit 31.2 % (42.0-52.0); Hemoglobin 9.5 g/dL (14.0-18.0); Mean Corpuscular HGB CONC 30.4 g/dL (32.0-36.0); Mean Corpuscular Hemoglobin 25.6 pg (27.0-31.0); Mean Corpuscular Volume 84.1 fl (78.0-98.0); Platelet Count 340 10x3/uL (130-400); RBC Distribution Width 18.3 % (11.5-14.5); Red Blood Cell (RBC) Count 3.71 mill/uL (4.70-6.10); White Blood Cell (WBC) Count 5.2 10x3/uL (4.8-10.8)
[2023-11-10] MEDS: Vancomycin 1 GM in Premix 1 BAG IVPB SCH (04:44)
[2023-11-10] MEDS: Senokot S 8.6-50 MG TAB PO PRN (09:20)
[2023-11-10] MEDS: Lorazepam 0.5 MG TAB PO PRN (21:05)
[2023-11-11] MEDS: Loperamide HCl 2 MG CAP PO SCH (04:38)
[2023-11-11 14:59] LABS: Vancomycin, Trough 18.4 ug/mL
[2023-11-11] MEDS: Vancomycin 1 GM in Premix 1 BAG IVPB SCH (17:09)
[2023-11-11] MEDS: Doxycycline 100 MG CAP PO SCH (22:38)
[2023-11-11] MEDS: Gabapentin 300 MG CAP PO SCH (22:39)
[2023-11-11] MEDS: Loperamide HCl 2 MG CAP PO PRN (23:27)
[2023-11-11] MEDS: Floranex 1 GM Packet PO SCH (23:27)
[2023-11-12 04:25] LABS: #Eosinphils 0.3 thou/uL (0.0-0.7); #Monocytes 0.6 thou/uL (0.11-0.59); #Neutrophils 3.8 thou/uL (1.40-6.50); %Basophils 0.5 % (0.0-1.0); %Eosinophils 5.3 % (0.0-10.0); %Lymphocytes 19.7 % (21.0-51.0); %Monocytes 9.5 % (0.0-10.0); %Neutrophils 64.7 % (42.0-75.0); Hematocrit 29.5 % (42.0-52.0); Mean Corpuscular HGB CONC 30.5 g/dL (32.0-36.0); Mean Corpuscular Hemoglobin 25.8 pg (27.0-31.0); Mean Corpuscular Volume 84.5 fl (78.0-98.0); Mean Platelet Volume 10.4 fL (7.4-10.4); Platelet Count 318 10x3/uL (130-400); RBC Distribution Width 18.1 % (11.5-14.5); Red Blood Cell (RBC) Count 3.49 mill/uL (4.70-6.10); White Blood Cell (WBC) Count 5.8 10x3/uL (4.8-10.8)
[2023-11-12 04:55] LABS: ALT (SGPT) 23 U/L (8-55); AST (SGOT) 22 U/L (5-34); Albumin 3.3 g/dL (3.4-4.8); Alkaline Phosphatase 92 U/L (40-110); Anion Gap 11 mmol/L (10-20); BUN (Urea Nitrogen) 12 mg/dL (8.4-25.7); Bilirubin, Total 0.7 mg/dL (0.2-1.2); Calc. Creatinine Clearance 85 mL/min (70-130); Calcium 8.7 mg/dL (7.8-10.44); Carbon Dioxide 18 mmol/L (23-31); Chloride 112 mmol/L (98-107); Estimated GFR 93; Globulin 2.5 g/dL (2.4-3.5); Glucose 90 mg/dL (83-110); Potassium 3.6 mmol/L (3.5-5.1); Protein, Total 5.8 g/dL (5.8-8.1); Sodium 137 mmol/L (136-145)
[2023-11-12] MEDS: HYDROcodone/Acetaminophen 10/325 mg Tablet PO PRN (05:24)
[2023-11-12] MEDS: Digoxin 0.125 MG TAB PO SCH (10:03)
[2023-11-12] MEDS: PROTEIN HYDROLYS PO SCH (14:28)
[2023-11-12] MEDS: AMINO ACIDS PO SCH (14:28)
[2023-11-12] MEDS: ARGININE PO SCH (14:28)
[2023-11-12] MEDS: ASCORBATE SOD PO SCH (14:28)
[2023-11-12] MEDS: VITE AC PO SCH (14:28)
[2023-11-12] MEDS ORDERED: Gabapentin 300 MG CAP PO SCH (21:00)
[2023-11-13 06:45] LABS: #Eosinphils 0.4 thou/uL (0.0-0.7); #Monocytes 0.5 thou/uL (0.11-0.59); %Basophils 0.5 % (0.0-1.0); %Eosinophils 6.7 % (0.0-10.0); %Lymphocytes 20.7 % (21.0-51.0); %Monocytes 8.6 % (0.0-10.0); %Neutrophils 63.2 % (42.0-75.0); Hematocrit 29.4 % (42.0-52.0); Hemoglobin 8.9 g/dL (14.0-18.0); Mean Corpuscular HGB CONC 30.3 g/dL (32.0-36.0); Mean Corpuscular Hemoglobin 24.9 pg (27.0-31.0); Mean Corpuscular Volume 82.1 fl (78.0-98.0); Mean Platelet Volume 11.1 fL (7.4-10.4); Platelet Count 306 10x3/uL (130-400); RBC Distribution Width 17.8 % (11.5-14.5); Red Blood Cell (RBC) Count 3.58 mill/uL (4.70-6.10); White Blood Cell (WBC) Count 6.3 10x3/uL (4.8-10.8)
[2023-11-13 07:09] LABS: ALT (SGPT) 19 U/L (8-55); AST (SGOT) 15 U/L (5-34); Albumin 3.2 g/dL (3.4-4.8); Alkaline Phosphatase 90 U/L (40-110); Anion Gap 11 mmol/L (10-20); BUN (Urea Nitrogen) 17 mg/dL (8.4-25.7); Bilirubin, Total 0.7 mg/dL (0.2-1.2); Calc. Creatinine Clearance 74 mL/min (70-130); Calcium 8.7 mg/dL (7.8-10.44); Carbon Dioxide 20 mmol/L (23-31); Chloride 109 mmol/L (98-107); Estimated GFR 84; Globulin 2.5 g/dL (2.4-3.5); Glucose 85 mg/dL (83-110); Potassium 3.9 mmol/L (3.5-5.1); Protein, Total 5.7 g/dL (5.8-8.1); Sodium 136 mmol/L (136-145)
[2023-11-13] MEDS: Torsemide 20 MG TAB PO SCH (08:26)
[2023-11-14 06:22] LABS: #Eosinphils 0.4 thou/uL (0.0-0.7); #Monocytes 0.4 thou/uL (0.11-0.59); #Neutrophils 3.4 thou/uL (1.40-6.50); %Basophils 0.5 % (0.0-1.0); %Lymphocytes 23.5 % (21.0-51.0); %Monocytes 7.5 % (0.0-10.0); %Neutrophils 61.1 % (42.0-75.0); Hematocrit 31.3 % (42.0-52.0); Hemoglobin 9.2 g/dL (14.0-18.0); Mean Corpuscular HGB CONC 29.4 g/dL (32.0-36.0); Mean Corpuscular Hemoglobin 24.7 pg (27.0-31.0); Mean Corpuscular Volume 84.1 fl (78.0-98.0); Mean Platelet Volume 10.8 fL (7.4-10.4); Platelet Count 304 10x3/uL (130-400); RBC Distribution Width 17.9 % (11.5-14.5); Red Blood Cell (RBC) Count 3.72 mill/uL (4.70-6.10); White Blood Cell (WBC) Count 5.6 10x3/uL (4.8-10.8)
[2023-11-14 15:17] VITALS: BMI 22.4
[2023-11-16] MEDS: Acetaminophen 325 MG TAB PO PRN (21:28)
[2023-11-17 00:41] VITALS: TEMP 97.2
[2023-11-17 07:36] VITALS: BP 110/61
== END 2023-11-17 15:52 | disposition home or self-care (01) | DRG 564 ==
LOC: SUATTDRO 10:30 → ERS 10:30 → ERHOLD 15:48 → 2NO 18:55 → T4-B 11-12 10:44
PROVIDERS: ADMIT Internal Medicine; ATTEND Internal Medicine
DX: T87.44 Infection of amputation stump, left lower extremity (principal); A41.9 Sepsis, unspecified organism; G93.41 Metabolic encephalopathy; I21.A1 Myocardial infarction type 2; I13.0 Hypertensive heart and chronic kidney disease with heart failure and stage 1 through stage 4 chronic kidney disease, or unspecified chronic kidney disease; I50.22 Chronic systolic (congestive) heart failure; N17.9 Acute kidney failure, unspecified; M62.82 Rhabdomyolysis; R62.7 Adult failure to thrive; Z68.21 Body mass index [BMI] 21.0-21.9, adult; J44.9 Chronic obstructive pulmonary disease, unspecified; E03.9 Hypothyroidism, unspecified; I48.0 Paroxysmal atrial fibrillation; E78.5 Hyperlipidemia, unspecified; E11.22 Type 2 diabetes mellitus with diabetic chronic kidney disease; N18.30 Chronic kidney disease, stage 3 unspecified; I25.10 Atherosclerotic heart disease of native coronary artery without angina pectoris; Z95.1 Presence of aortocoronary bypass graft; E11.51 Type 2 diabetes mellitus with diabetic peripheral angiopathy without gangrene; D63.1 Anemia in chronic kidney disease
CPT/HCPCS: 36415; 36416; 51701; 70450; 71045; 72125; 72170; 74177; 80048; 80053; 80162; 80202; 80306; 80307; 81001; 82550; 83036; 83605; 83690; 83735; 84484; 85025; 85610; 85730; 87040; 93005; 96361; 96365; 96367; 96375; 97139; J0692; J0696; J1644; J1650; J1815; J2060; J2185; J2272; J2405; J3370; J3370-JW; J3475; J3490; J7050; Q9967

== ENCOUNTER 2023-12-10 08:08 | Inpatient (IN) | payer OTHER, MEDICAID ==
[2023-12-10 09:04] LABS: #Basophils 0.1 thou/uL (0.0-0.2); #Monocytes 0.9 thou/uL (0.11-0.59); #Neutrophils 14.7 thou/uL (1.40-6.50); %Basophils 0.3 % (0.0-1.0); %Eosinophils 0.1 % (0.0-10.0); %Monocytes 5.4 % (0.0-10.0); %Neutrophils 89.6 % (42.0-75.0); Hematocrit 31.3 % (42.0-52.0); Mean Corpuscular HGB CONC 31.9 g/dL (32.0-36.0); Mean Corpuscular Hemoglobin 24.9 pg (27.0-31.0); Mean Corpuscular Volume 78.1 fl (78.0-98.0); Mean Platelet Volume 10.5 fL (7.4-10.4); Platelet Count 452 10x3/uL (130-400); RBC Distribution Width 18.4 % (11.5-14.5); Red Blood Cell (RBC) Count 4.01 mill/uL (4.70-6.10); White Blood Cell (WBC) Count 16.4 10x3/uL (4.8-10.8)
[2023-12-10 09:06] LABS: Actual Bicarbonate (HCO3v) 19.7 mEq/L (22-28); Analyzer IN Cardio ER; Base Excess -4.7 mEq/L (-2.0 to +3.0); Calcium, Ionized (venous) 1.18 mmol/L (1.16-1.32); Chloride (VBG) 100 mmol/L (98-106); Hematocrit-VBG 32 % (42.0-52.0); Hemoglobin (Hb) 10.8 g/dL (12.6-17.4); Potassium (VBG) 5.13 mmol/L (3.70-5.30)
[2023-12-10 09:28] LABS: Troponin I 0.112 ng/mL (< 0.028)
[2023-12-10 09:44] LABS: ALT (SGPT) 18 U/L (8-55); Albumin 4.7 g/dL (3.4-4.8); Alkaline Phosphatase 139 U/L (40-110); Anion Gap 20 mmol/L (10-20); BUN (Urea Nitrogen) 47 mg/dL (8.4-25.7); Bilirubin, Total 1.5 mg/dL (0.2-1.2); Calc. Creatinine Clearance 0 mL/min (70-130); Calcium 10.8 mg/dL (7.8-10.44); Carbon Dioxide 17 mmol/L (23-31); Chloride 101 mmol/L (98-107); Estimated GFR 38; Globulin 4.2 g/dL (2.4-3.5); Glucose 110 mg/dL (83-110); Lipase 17 U/L (8-78); Potassium 5.2 mmol/L (3.5-5.1); Protein, Total 8.9 g/dL (5.8-8.1); Sodium 133 mmol/L (136-145)
[2023-12-10 09:47] LABS: AST (SGOT) 37 U/L (5-34)
[2023-12-10] MEDS ORDERED: Cefepime 2 GM VIAL ONE (09:52)
[2023-12-10] MEDS ORDERED: Sodium Chloride 0.9% 100 ML ONE (09:53)
[2023-12-10] MEDS ORDERED: Aspirin 81 mg Enteric Coated Tablet ONE (10:20)
[2023-12-10] MEDS ORDERED: Vancomycin 1 GM/200 ML (FROZEN) BAG ONE (10:21)
[2023-12-10 10:35] LABS: Bacteria/HPF None Seen HPF (None Seen); Bilirubin Negative (Negative); Blood, Urine Negative (Negative); CAUTI Indications for Culture Fever or rigors; Clarity Clear (Clear); Glucose, Urine (Dipstick) Normal (Negative); Ketone, Urine Trace mg/dL (Negative); Leukocyte Negative Leu/uL (Negative); Nitrite Negative (Negative); Protein, Urine (Dipstick) 10 mg/dL (Neg-Trace); RBC/HPF 0-3 HPF (0-3); Specific Gravity, Urine 1.019 (1.002-1.036); Squamous Epithelial 0-3 HPF (0-3); Urobilinogen Normal mg/dL (Less than 2); WBC/HPF 0-3 HPF (0-3)
[2023-12-10 10:37] LABS: Urine Culture Reflex No No
[2023-12-10 12:20] LABS: Lactic Acid 1.5 mmol/L (0.5-2.2)
[2023-12-10 13:35] LABS: Acetaminophen Less than 10 mcg/mL (10.0-30.0); Alcohol Less than 10.0 mg/dL (Less than 10); Salicylate Less than 8.0 mg/dL (15.0-30.0)
[2023-12-10 14:20] LABS: Troponin I 0.074 ng/mL (< 0.028)
[2023-12-10] MEDS ORDERED: Dextrose 50% Abboject 50 ML SYRINGE SLOW IVP PRN (14:26)
[2023-12-10] MEDS ORDERED: Glucagon 1 MG/ML KIT IM PRN (14:26)
[2023-12-10] MEDS ORDERED: Senokot S 8.6-50 MG TAB PO PRN (14:26)
[2023-12-10] MEDS ORDERED: Insulin Regular 300 UNITS/3 ML VIAL SC PRN (14:26)
[2023-12-10] MEDS ORDERED: Vancomycin 1 GM in Sodium Chloride 0.9% 500 ML IVPB SCH (14:30)
[2023-12-10] MEDS ORDERED: Iopamidol-370 76% 500 ML MDV (1 ML CHARGE) ONE (14:40)
[2023-12-10] MEDS: Sodium Chloride 0.9% 1,000 ML IV SCH (15:15)
[2023-12-10 17:03] LABS: Digoxin Less than 0.15 ng/mL (0.8-2.0)
[2023-12-10] MEDS: Dextrose 5% in Water 1,000 ML IV PRN (20:42)
[2023-12-10] MEDS: busPIRone HCl 5 MG TAB PO SCH (20:51)
[2023-12-10] MEDS: Atorvastatin Calcium 40 MG TAB PO SCH (20:52)
[2023-12-10] MEDS: Famotidine 20 MG TAB PO SCH (20:52)
[2023-12-10] MEDS: QUEtiapine 25 MG TAB PO SCH (20:52)
[2023-12-10] MEDS: Gabapentin 300 MG CAP PO SCH (20:52)
[2023-12-10 21:03] VITALS: BMI 23.3
[2023-12-10] MEDS: Cefepime 2 GM in Sodium Chloride 0.9% 100 ML IVPB SCH (22:32)
[2023-12-10] MEDS: Cefepime 1 GM in Sodium Chloride 0.9% 100 ML IVPB SCH (22:45)
[2023-12-10] MEDS: Dextrose 5 % And 0.9 % NaCl 1,000 ML IV SCH (22:45)
[2023-12-11 05:16] LABS: #Basophils 0.1 thou/uL (0.0-0.2); #Eosinphils 0.3 thou/uL (0.0-0.7); #Monocytes 0.7 thou/uL (0.11-0.59); %Basophils 0.6 % (0.0-1.0); %Eosinophils 2.9 % (0.0-10.0); %Lymphocytes 7.6 % (21.0-51.0); %Monocytes 8.2 % (0.0-10.0); %Neutrophils 80.2 % (42.0-75.0); Hematocrit 25.6 % (42.0-52.0); Hemoglobin 8.2 g/dL (14.0-18.0); Mean Corpuscular Hemoglobin 24.6 pg (27.0-31.0); Mean Corpuscular Volume 76.9 fl (78.0-98.0); Mean Platelet Volume 11.1 fL (7.4-10.4); Platelet Count 376 10x3/uL (130-400); RBC Distribution Width 18.6 % (11.5-14.5); Red Blood Cell (RBC) Count 3.33 mill/uL (4.70-6.10); White Blood Cell (WBC) Count 8.7 10x3/uL (4.8-10.8)
[2023-12-11 05:52] LABS: ALT (SGPT) 15 U/L (8-55); AST (SGOT) 25 U/L (5-34); Albumin 3.4 g/dL (3.4-4.8); Alkaline Phosphatase 96 U/L (40-110); Anion Gap 12 mmol/L (10-20); BUN (Urea Nitrogen) 30 mg/dL (8.4-25.7); Bilirubin, Total 0.8 mg/dL (0.2-1.2); Calc. Creatinine Clearance 67 mL/min (70-130); Calcium 9.1 mg/dL (7.8-10.44); Carbon Dioxide 19 mmol/L (23-31); Chloride 108 mmol/L (98-107); Estimated GFR 67; Glucose 94 mg/dL (83-110); Potassium 3.7 mmol/L (3.5-5.1); Protein, Total 6.4 g/dL (5.8-8.1); Sodium 135 mmol/L (136-145)
[2023-12-11] MEDS: Digoxin 0.125 MG TAB PO SCH (09:10)
[2023-12-11] MEDS: Aspirin 81 mg Enteric Coated Tablet PO SCH (09:11)
[2023-12-11] MEDS: Torsemide 20 MG TAB PO SCH (09:11)
[2023-12-11] MEDS: Vancomycin 1 GM in Premix 1 BAG IVPB SCH (10:00)
[2023-12-11] MEDS: Acetaminophen 325 MG TAB PO PRN (10:51)
[2023-12-11 11:40] LABS: Amphetamine Detected (NotDetected); Barbiturates Screen Not Detected (NotDetected); Benzodiazepine Screen Not Detected (NotDetected); Cocaine Metabolite Screen Not Detected (NotDetected); Methadone Not Detected (NotDetected); Methamphetamine Detected (NotDetected); Opiate Screen Not Detected (NotDetected); Oxycodone Screen Not Detected (NotDetected); Phencyclidine (PCP) Not Detected (NotDetected); THC/Cannabinoid Screen Not Detected (NotDetected); Tricyclic Screen Detected (NotDetected)
[2023-12-11] MEDS: Vancomycin HCl 750 MG in Sodium Chloride 0.9% 250 ML 250 ML IVPB SCH (21:35)
[2023-12-12] MEDS: Enoxaparin 40 MG (0.4 mL) SYRINGE SC SCH (09:46)
[2023-12-12 18:29] LABS: #Basophils 0.1 thou/uL (0.0-0.2); #Eosinphils 0.5 thou/uL (0.0-0.7); #Monocytes 0.9 thou/uL (0.11-0.59); #Neutrophils 6.1 thou/uL (1.40-6.50); %Basophils 0.6 % (0.0-1.0); %Eosinophils 5.3 % (0.0-10.0); %Lymphocytes 11.1 % (21.0-51.0); %Neutrophils 71.3 % (42.0-75.0); Hematocrit 28.4 % (42.0-52.0); Hemoglobin 8.9 g/dL (14.0-18.0); Mean Corpuscular HGB CONC 31.3 g/dL (32.0-36.0); Mean Corpuscular Hemoglobin 24.4 pg (27.0-31.0); Mean Corpuscular Volume 77.8 fl (78.0-98.0); Mean Platelet Volume 10.7 fL (7.4-10.4); Platelet Count 432 10x3/uL (130-400); RBC Distribution Width 18.6 % (11.5-14.5); Red Blood Cell (RBC) Count 3.65 mill/uL (4.70-6.10); White Blood Cell (WBC) Count 8.6 10x3/uL (4.8-10.8)
[2023-12-12 19:06] LABS: ALT (SGPT) 14 U/L (8-55); AST (SGOT) 15 U/L (5-34); Albumin 3.6 g/dL (3.4-4.8); Alkaline Phosphatase 109 U/L (40-110); Anion Gap 16 mmol/L (10-20); BUN (Urea Nitrogen) 36 mg/dL (8.4-25.7); Bilirubin, Total 0.5 mg/dL (0.2-1.2); Calc. Creatinine Clearance 67 mL/min (70-130); Calcium 9.1 mg/dL (7.8-10.44); Carbon Dioxide 23 mmol/L (23-31); Chloride 103 mmol/L (98-107); Estimated GFR 66; Globulin 2.9 g/dL (2.4-3.5); Glucose 115 mg/dL (83-110); Potassium 4.6 mmol/L (3.5-5.1); Protein, Total 6.5 g/dL (5.8-8.1); Sodium 137 mmol/L (136-145)
[2023-12-13 09:31] LABS: #Basophils 0.1 thou/uL (0.0-0.2); #Eosinphils 0.4 thou/uL (0.0-0.7); #Monocytes 0.9 thou/uL (0.11-0.59); #Neutrophils 7.7 thou/uL (1.40-6.50); %Basophils 0.7 % (0.0-1.0); %Eosinophils 4.2 % (0.0-10.0); %Lymphocytes 8.5 % (21.0-51.0); Hematocrit 32.2 % (42.0-52.0); Hemoglobin 10.2 g/dL (14.0-18.0); Mean Corpuscular HGB CONC 31.7 g/dL (32.0-36.0); Mean Corpuscular Hemoglobin 24.4 pg (27.0-31.0); Platelet Count 420 10x3/uL (130-400); RBC Distribution Width 18.4 % (11.5-14.5); Red Blood Cell (RBC) Count 4.18 mill/uL (4.70-6.10)
[2023-12-13 09:35] LABS: Vancomycin, Trough 16.8 ug/mL
[2023-12-13 09:38] LABS: ALT (SGPT) 16 U/L (8-55); AST (SGOT) 18 U/L (5-34); Albumin 3.6 g/dL (3.4-4.8); Alkaline Phosphatase 105 U/L (40-110); Anion Gap 16 mmol/L (10-20); BUN (Urea Nitrogen) 33 mg/dL (8.4-25.7); Bilirubin, Total 0.6 mg/dL (0.2-1.2); Calc. Creatinine Clearance 74 mL/min (70-130); Calcium 9.4 mg/dL (7.8-10.44); Carbon Dioxide 22 mmol/L (23-31); Chloride 103 mmol/L (98-107); Estimated GFR 75; Globulin 3.4 g/dL (2.4-3.5); Glucose 116 mg/dL (83-110); Sodium 137 mmol/L (136-145)
[2023-12-13] MEDS: Morphine 2 MG/ML VIAL SLOW IVP PRN (12:34)
[2023-12-13] MEDS: Cefepime 2 GM in Sodium Chloride 0.9% 100 ML IVPB SCH (19:37)
[2023-12-13] MEDS: FLU VACC QS2023(65UP)/MF59C/PF 60 MCG/0.5 ML SYRINGE IM ONE (22:32)
[2023-12-14 06:18] LABS: #Basophils 0.1 thou/uL (0.0-0.2); #Eosinphils 0.5 thou/uL (0.0-0.7); #Monocytes 1.1 thou/uL (0.11-0.59); #Neutrophils 7.3 thou/uL (1.40-6.50); %Basophils 0.8 % (0.0-1.0); %Eosinophils 4.5 % (0.0-10.0); %Monocytes 11.2 % (0.0-10.0); %Neutrophils 71.7 % (42.0-75.0); Hematocrit 32.6 % (42.0-52.0); Hemoglobin 10.2 g/dL (14.0-18.0); Mean Corpuscular HGB CONC 31.3 g/dL (32.0-36.0); Mean Corpuscular Hemoglobin 24.2 pg (27.0-31.0); Mean Corpuscular Volume 77.4 fl (78.0-98.0); Mean Platelet Volume 11.2 fL (7.4-10.4); RBC Distribution Width 18.4 % (11.5-14.5); Red Blood Cell (RBC) Count 4.21 mill/uL (4.70-6.10); White Blood Cell (WBC) Count 10.1 10x3/uL (4.8-10.8)
[2023-12-14 06:20] LABS: Platelet Count 314 10x3/uL (130-400)
[2023-12-14 06:40] LABS: ALT (SGPT) 18 U/L (8-55); AST (SGOT) 17 U/L (5-34); Albumin 3.6 g/dL (3.4-4.8); Alkaline Phosphatase 99 U/L (40-110); Anion Gap 15 mmol/L (10-20); BUN (Urea Nitrogen) 38 mg/dL (8.4-25.7); Bilirubin, Total 0.3 mg/dL (0.2-1.2); Calc. Creatinine Clearance 80 mL/min (70-130); Calcium 9.3 mg/dL (7.8-10.44); Carbon Dioxide 25 mmol/L (23-31); Chloride 101 mmol/L (98-107); Estimated GFR 82; Globulin 3.3 g/dL (2.4-3.5); Glucose 116 mg/dL (83-110); Protein, Total 6.9 g/dL (5.8-8.1); Sodium 137 mmol/L (136-145)
[2023-12-14] MEDS: ALPRAZolam 0.5 MG TAB PO SCH (18:23)
[2023-12-14] MEDS: cefTRIAXone\\ROCEPHIN 2 GM in Sodium Chloride 0.9% 100 ML IVPB SCH (21:01)
[2023-12-14 21:47] LABS: Vancomycin, Trough 19.7 ug/mL
[2023-12-15 04:44] LABS: #Basophils 0.1 thou/uL (0.0-0.2); #Eosinphils 0.5 thou/uL (0.0-0.7); #Neutrophils 7.7 thou/uL (1.40-6.50); %Basophils 0.9 % (0.0-1.0); %Eosinophils 4.5 % (0.0-10.0); %Lymphocytes 14.2 % (21.0-51.0); %Monocytes 9.4 % (0.0-10.0); %Neutrophils 69.9 % (42.0-75.0); Hematocrit 31.2 % (42.0-52.0); Hemoglobin 9.7 g/dL (14.0-18.0); Mean Corpuscular HGB CONC 31.1 g/dL (32.0-36.0); Mean Corpuscular Volume 77.2 fl (78.0-98.0); Mean Platelet Volume 11.1 fL (7.4-10.4); RBC Distribution Width 18.1 % (11.5-14.5); Red Blood Cell (RBC) Count 4.04 mill/uL (4.70-6.10)
[2023-12-15 04:54] LABS: Platelet Count 471 10x3/uL (130-400)
[2023-12-15 05:12] LABS: ALT (SGPT) 14 U/L (8-55); AST (SGOT) 12 U/L (5-34); Albumin 3.8 g/dL (3.4-4.8); Alkaline Phosphatase 107 U/L (40-110); Anion Gap 15 mmol/L (10-20); BUN (Urea Nitrogen) 46 mg/dL (8.4-25.7); Bilirubin, Total 0.4 mg/dL (0.2-1.2); Calc. Creatinine Clearance 69 mL/min (70-130); Calcium 9.7 mg/dL (7.8-10.44); Carbon Dioxide 25 mmol/L (23-31); Chloride 98 mmol/L (98-107); Estimated GFR 68; Globulin 3.4 g/dL (2.4-3.5); Glucose 130 mg/dL (83-110); Protein, Total 7.2 g/dL (5.8-8.1); Sodium 134 mmol/L (136-145)
[2023-12-16 04:59] LABS: #Basophils 0.1 thou/uL (0.0-0.2); #Eosinphils 0.5 thou/uL (0.0-0.7); #Neutrophils 8.5 thou/uL (1.40-6.50); %Basophils 0.5 % (0.0-1.0); %Eosinophils 4.1 % (0.0-10.0); %Lymphocytes 12.9 % (21.0-51.0); %Monocytes 8.2 % (0.0-10.0); %Neutrophils 72.9 % (42.0-75.0); Hematocrit 31.3 % (42.0-52.0); Hemoglobin 9.8 g/dL (14.0-18.0); Mean Corpuscular HGB CONC 31.3 g/dL (32.0-36.0); Mean Corpuscular Hemoglobin 24.2 pg (27.0-31.0); Mean Corpuscular Volume 77.3 fl (78.0-98.0); Mean Platelet Volume 11.2 fL (7.4-10.4); Platelet Count 405 10x3/uL (130-400); RBC Distribution Width 17.9 % (11.5-14.5); Red Blood Cell (RBC) Count 4.05 mill/uL (4.70-6.10); White Blood Cell (WBC) Count 11.7 10x3/uL (4.8-10.8)
[2023-12-16 05:15] LABS: ALT (SGPT) 14 U/L (8-55); AST (SGOT) 12 U/L (5-34); Albumin 3.6 g/dL (3.4-4.8); Alkaline Phosphatase 109 U/L (40-110); Anion Gap 18 mmol/L (10-20); BUN (Urea Nitrogen) 46 mg/dL (8.4-25.7); Bilirubin, Total 0.2 mg/dL (0.2-1.2); Calc. Creatinine Clearance 65 mL/min (70-130); Calcium 9.3 mg/dL (7.8-10.44); Carbon Dioxide 25 mmol/L (23-31); Chloride 98 mmol/L (98-107); Estimated GFR 64; Globulin 3.5 g/dL (2.4-3.5); Glucose 124 mg/dL (83-110); Protein, Total 7.1 g/dL (5.8-8.1); Sodium 137 mmol/L (136-145)
[2023-12-16 21:27] LABS: Vancomycin, Trough 20.7 ug/mL
[2023-12-17 07:55] LABS: #Basophils 0.1 thou/uL (0.0-0.2); #Eosinphils 0.5 thou/uL (0.0-0.7); #Monocytes 0.9 thou/uL (0.11-0.59); #Neutrophils 7.9 thou/uL (1.40-6.50); %Basophils 0.8 % (0.0-1.0); %Eosinophils 4.2 % (0.0-10.0); %Lymphocytes 13.2 % (21.0-51.0); %Monocytes 8.2 % (0.0-10.0); %Neutrophils 72.3 % (42.0-75.0); Hematocrit 30.1 % (42.0-52.0); Hemoglobin 9.5 g/dL (14.0-18.0); Mean Corpuscular HGB CONC 31.6 g/dL (32.0-36.0); Mean Corpuscular Hemoglobin 24.2 pg (27.0-31.0); Mean Corpuscular Volume 76.8 fl (78.0-98.0); Platelet Count 482 10x3/uL (130-400); RBC Distribution Width 17.9 % (11.5-14.5); Red Blood Cell (RBC) Count 3.92 mill/uL (4.70-6.10); White Blood Cell (WBC) Count 10.9 10x3/uL (4.8-10.8)
[2023-12-17 08:34] LABS: ALT (SGPT) 14 U/L (8-55); AST (SGOT) 11 U/L (5-34); Albumin 3.6 g/dL (3.4-4.8); Alkaline Phosphatase 107 U/L (40-110); Anion Gap 15 mmol/L (10-20); BUN (Urea Nitrogen) 41 mg/dL (8.4-25.7); Bilirubin, Total 0.3 mg/dL (0.2-1.2); Calc. Creatinine Clearance 70 mL/min (70-130); Calcium 9.6 mg/dL (7.8-10.44); Carbon Dioxide 28 mmol/L (23-31); Chloride 99 mmol/L (98-107); Estimated GFR 70; Globulin 3.4 g/dL (2.4-3.5); Glucose 121 mg/dL (83-110); Potassium 4.2 mmol/L (3.5-5.1); Sodium 138 mmol/L (136-145)
[2023-12-17] MEDS: Vancomycin (BATCH) 1.25 GM in Premix 1 BAG IVPB SCH (14:05)
[2023-12-17 17:09] VITALS: TEMP 98
[2023-12-18 05:30] LABS: #Basophils 0.1 thou/uL (0.0-0.2); #Eosinphils 0.5 thou/uL (0.0-0.7); #Monocytes 0.9 thou/uL (0.11-0.59); #Neutrophils 7.7 thou/uL (1.40-6.50); %Basophils 0.8 % (0.0-1.0); %Eosinophils 4.6 % (0.0-10.0); %Monocytes 8.3 % (0.0-10.0); %Neutrophils 71.3 % (42.0-75.0); Hematocrit 31.5 % (42.0-52.0); Hemoglobin 9.8 g/dL (14.0-18.0); Mean Corpuscular HGB CONC 31.1 g/dL (32.0-36.0); Mean Corpuscular Hemoglobin 24.4 pg (27.0-31.0); Mean Corpuscular Volume 78.6 fl (78.0-98.0); Mean Platelet Volume 10.3 fL (7.4-10.4); Platelet Count 469 10x3/uL (130-400); RBC Distribution Width 17.8 % (11.5-14.5); Red Blood Cell (RBC) Count 4.01 mill/uL (4.70-6.10); White Blood Cell (WBC) Count 10.8 10x3/uL (4.8-10.8)
[2023-12-18 05:49] LABS: ALT (SGPT) 15 U/L (8-55); AST (SGOT) 13 U/L (5-34); Albumin 3.5 g/dL (3.4-4.8); Alkaline Phosphatase 103 U/L (40-110); Anion Gap 15 mmol/L (10-20); BUN (Urea Nitrogen) 41 mg/dL (8.4-25.7); Bilirubin, Total 0.2 mg/dL (0.2-1.2); Calc. Creatinine Clearance 69 mL/min (70-130); Calcium 9.6 mg/dL (7.8-10.44); Carbon Dioxide 26 mmol/L (23-31); Chloride 102 mmol/L (98-107); Estimated GFR 68; Globulin 3.4 g/dL (2.4-3.5); Glucose 131 mg/dL (83-110); Potassium 4.3 mmol/L (3.5-5.1); Protein, Total 6.9 g/dL (5.8-8.1); Sodium 139 mmol/L (136-145)
[2023-12-18 13:16] VITALS: BP 154/69
== END 2023-12-18 17:09 | disposition home or self-care (01) | DRG 872 ==
LOC: ERS 08:08 → ERHOLD 13:20 → 2NO 13:44 → OBSVTOIN 12-11 11:26 → SURG B 12-12 12:24
PROVIDERS: ADMIT Family Medicine; ATTEND Internal Medicine
DX: A41.59 Other Gram-negative sepsis (principal); I13.0 Hypertensive heart and chronic kidney disease with heart failure and stage 1 through stage 4 chronic kidney disease, or unspecified chronic kidney disease; I50.22 Chronic systolic (congestive) heart failure; N17.9 Acute kidney failure, unspecified; M01.X72 Direct infection of left ankle and foot in infectious and parasitic diseases classified elsewhere; J44.9 Chronic obstructive pulmonary disease, unspecified; I48.91 Unspecified atrial fibrillation; N18.30 Chronic kidney disease, stage 3 unspecified; E11.22 Type 2 diabetes mellitus with diabetic chronic kidney disease; E03.9 Hypothyroidism, unspecified; F19.10 Other psychoactive substance abuse, uncomplicated; E78.5 Hyperlipidemia, unspecified; F17.210 Nicotine dependence, cigarettes, uncomplicated; I48.0 Paroxysmal atrial fibrillation; W10.9XXA Fall (on) (from) unspecified stairs and steps, initial encounter; E78.00 Pure hypercholesterolemia, unspecified; R79.89 Other specified abnormal findings of blood chemistry; I25.10 Atherosclerotic heart disease of native coronary artery without angina pectoris; Z89.512 Acquired absence of left leg below knee; Z88.8 Allergy status to other drugs, medicaments and biological substances; Z79.899 Other long term (current) drug therapy; Z79.82 Long term (current) use of aspirin; Z95.1 Presence of aortocoronary bypass graft; Z82.49 Family history of ischemic heart disease and other diseases of the circulatory system; Z91.148 Patient's other noncompliance with medication regimen for other reason; R53.1 Weakness; E11.9 Type 2 diabetes mellitus without complications
CPT/HCPCS: 36415; 36416; 51701; 70450; 71045; 74177; 80048; 80053; 80162; 80202; 80306; 80307; 81001; 82805; 83605; 83690; 83735; 83880; 84145; 84484; 85025; 87040; 87070; 87077; 87086; 87149; 87186; 87205; 93005; 93306; 96361; 96365; 96366; 96367; 96368; 96376; 97139; G0378; J0692; J0696; J1200; J1650; J2272; J3370; J3370-JW; J3490; J7042; J7050; J7070; Q9967

== ENCOUNTER 2023-12-18 19:27 | Emergency (ER) | payer OTHER, MEDICAID ==
[2023-12-18] MEDS ORDERED: diphenhydrAMINE 50 MG/ML VIAL ONE (20:17)
[2023-12-18 21:23] LABS: #Basophils 0.1 thou/uL (0.0-0.2); #Eosinphils 0.3 thou/uL (0.0-0.7); #Monocytes 0.8 thou/uL (0.11-0.59); #Neutrophils 10.7 thou/uL (1.40-6.50); %Basophils 0.6 % (0.0-1.0); %Eosinophils 2.5 % (0.0-10.0); %Lymphocytes 10.3 % (21.0-51.0); %Monocytes 5.9 % (0.0-10.0); %Neutrophils 79.1 % (42.0-75.0); Hematocrit 32.6 % (42.0-52.0); Hemoglobin 10.3 g/dL (14.0-18.0); Mean Corpuscular HGB CONC 31.6 g/dL (32.0-36.0); Mean Corpuscular Hemoglobin 24.4 pg (27.0-31.0); Mean Corpuscular Volume 77.3 fl (78.0-98.0); Mean Platelet Volume 11.2 fL (7.4-10.4); Platelet Count 525 10x3/uL (130-400); RBC Distribution Width 18.1 % (11.5-14.5); Red Blood Cell (RBC) Count 4.22 mill/uL (4.70-6.10); White Blood Cell (WBC) Count 13.5 10x3/uL (4.8-10.8)
[2023-12-18 21:38] LABS: ALT (SGPT) 17 U/L (8-55); AST (SGOT) 17 U/L (5-34); Alkaline Phosphatase 117 U/L (40-110); Anion Gap 18 mmol/L (10-20); BUN (Urea Nitrogen) 49 mg/dL (8.4-25.7); Bilirubin, Total 0.3 mg/dL (0.2-1.2); Calc. Creatinine Clearance 0 mL/min (70-130); Carbon Dioxide 29 mmol/L (23-31); Chloride 97 mmol/L (98-107); Estimated GFR 47; Globulin 3.7 g/dL (2.4-3.5); Glucose 128 mg/dL (83-110); Potassium 4.6 mmol/L (3.5-5.1); Protein, Total 7.7 g/dL (5.8-8.1); Sodium 139 mmol/L (136-145)
[2023-12-18 21:40] LABS: Troponin I 0.016 ng/mL (< 0.028)
[2023-12-19 00:37] LABS: #Basophils 0.1 thou/uL (0.0-0.2); #Eosinphils 0.4 thou/uL (0.0-0.7); #Monocytes 0.8 thou/uL (0.11-0.59); #Neutrophils 10.9 thou/uL (1.40-6.50); %Basophils 0.6 % (0.0-1.0); %Eosinophils 2.8 % (0.0-10.0); %Lymphocytes 11.7 % (21.0-51.0); %Monocytes 5.7 % (0.0-10.0); Hematocrit 31.9 % (42.0-52.0); Hemoglobin 10.2 g/dL (14.0-18.0); Mean Corpuscular Hemoglobin 24.2 pg (27.0-31.0); Mean Corpuscular Volume 75.8 fl (78.0-98.0); Mean Platelet Volume 10.2 fL (7.4-10.4); Platelet Count 560 10x3/uL (130-400); RBC Distribution Width 17.9 % (11.5-14.5); Red Blood Cell (RBC) Count 4.21 mill/uL (4.70-6.10)
[2023-12-19 01:01] LABS: Anion Gap 15 mmol/L (10-20); BUN (Urea Nitrogen) 42 mg/dL (8.4-25.7); Calc. Creatinine Clearance 0 mL/min (70-130); Calcium 9.7 mg/dL (7.8-10.44); Carbon Dioxide 27 mmol/L (23-31); Chloride 99 mmol/L (98-107); Estimated GFR 56; Glucose 132 mg/dL (83-110); Potassium 4.3 mmol/L (3.5-5.1); Sodium 137 mmol/L (136-145)
[2023-12-19] MEDS ORDERED: cefTRIAXone (ROCEPHIN) 2 GM VIAL ONE (01:17)
[2023-12-19] MEDS ORDERED: Sodium Chloride 0.9% 100 ML ONE (01:17)
[2023-12-19] MEDS ORDERED: Vancomycin 1 GM/200 ML (FROZEN) BAG ONE (02:22)
== END 2023-12-19 03:50 | disposition home or self-care (01) ==
LOC: ERS 19:27
DX: M01.X72 Direct infection of left ankle and foot in infectious and parasitic diseases classified elsewhere (principal); R53.1 Weakness; E78.00 Pure hypercholesterolemia, unspecified; I11.0 Hypertensive heart disease with heart failure; I50.9 Heart failure, unspecified; E11.9 Type 2 diabetes mellitus without complications; F17.210 Nicotine dependence, cigarettes, uncomplicated
CPT/HCPCS: 71045; 83605; 84484; 87040; 93005; J1200

== ENCOUNTER 2024-03-04 13:35 | Emergency (ER) | payer OTHER, MEDICAID, MEDICARE ==
[2024-03-04] MEDS ORDERED: traMADol HCl 50 MG TAB ONE (14:57)
== END 2024-03-04 19:00 | disposition home or self-care (01) ==
LOC: ERS 13:35
DX: M79.671 Pain in right foot (principal); I11.0 Hypertensive heart disease with heart failure; I50.9 Heart failure, unspecified; J44.9 Chronic obstructive pulmonary disease, unspecified; I48.91 Unspecified atrial fibrillation; I25.10 Atherosclerotic heart disease of native coronary artery without angina pectoris; E78.00 Pure hypercholesterolemia, unspecified; M86.9 Osteomyelitis, unspecified; F17.210 Nicotine dependence, cigarettes, uncomplicated; Z55.6 Problems related to health literacy
CPT/HCPCS: 99283

== ENCOUNTER 2024-03-11 14:13 | Outpatient (CLI) | payer OTHER, MEDICAID | END 2024-03-11 14:14 | disposition home or self-care (01) | LOC: RAD 14:13 | PROVIDERS: ATTEND Internal Medicine | DX: R06.00 Dyspnea, unspecified (principal); S22.32XD Fracture of one rib, left side, subsequent encounter for fracture with routine healing | CPT/HCPCS: 71046 ==

== ENCOUNTER 2024-07-07 07:56 | Day surgery (SDC) | payer MEDICARE, MEDICAID ==
[2024-07-07] MEDS ORDERED: Heparin 10,000 UNITS/ 10 ML VIAL ONE (09:49)
[2024-07-07] MEDS ORDERED: fentaNYL 50 mcg/mL 1 mL Vial ONE ×3 (10:18→11:10)
[2024-07-07] MEDS ORDERED: Iopamidol 370 76% 100 ML VIAL ONE (13:29)
== END 2024-07-07 13:10 | disposition home or self-care (01) ==
LOC: CCL 07:56
PROVIDERS: ATTEND Thoracic Surgery (Cardiothoracic Vascular Surgery)
PROC: B400YZZ Plain Radiography of Abdominal Aorta using Other Contrast (ICD-10-PCS; principal; 2024-07-07)
PROC: B40JYZZ Plain Radiography of Other Lower Arteries using Other Contrast (ICD-10-PCS; 2024-07-07)
DX: I73.9 Peripheral vascular disease, unspecified (principal); M86.172 Other acute osteomyelitis, left ankle and foot; E78.5 Hyperlipidemia, unspecified; E11.9 Type 2 diabetes mellitus without complications; I11.9 Hypertensive heart disease without heart failure; K21.9 Gastro-esophageal reflux disease without esophagitis; F17.200 Nicotine dependence, unspecified, uncomplicated; Z88.1 Allergy status to other antibiotic agents; Z79.899 Other long term (current) drug therapy; Z79.2 Long term (current) use of antibiotics
CPT/HCPCS: 36247; C1760; C1769 ×2; C1887; C1894; J3010; 36416; 75625; 75710; 75774; J1644; Q9967

== ENCOUNTER 2024-10-25 19:49 | Inpatient (IN) | payer MEDICARE, MEDICAID ==
[2024-10-25] MEDS ORDERED: Glucagon 1 MG/ML KIT IM PRN (20:27)
[2024-10-25] MEDS ORDERED: Dextrose 5% in Water 1,000 ML IV PRN (20:27)
[2024-10-25] MEDS ORDERED: Dextrose 50% Abboject 50 ML SYRINGE SLOW IVP PRN (20:27)
[2024-10-25] MEDS ORDERED: Acetaminophen/Codeine 30-300mg Tablet PO PRN (20:27)
[2024-10-25] MEDS ORDERED: Ondansetron PF 4 MG/2 ML Vial IVP PRN (20:27)
[2024-10-25] MEDS ORDERED: Lorazepam 2 MG/ML VIAL SLOW IVP PRN (20:40)
[2024-10-25 21:34] VITALS: BMI 33.1
[2024-10-25 23:44] LABS: Lactic Acid 1.65 mmol/L (0.5-2.2)
[2024-10-26] MEDS: Lactated Ringer's 1,000 ML IV SCH (00:03)
[2024-10-26] MEDS: Heparin 5,000 UNITS/ML VIAL SC SCH (00:08)
[2024-10-26 03:05] LABS: Troponin I 0.191 ng/mL (< 0.028)
[2024-10-26 04:28] LABS: #Basophils 0.04 10x3/uL (0.0-0.2); %Basophils 0.5 % (0.0-1.0); %Eosinophils 2.3 % (0.0-10.0); %Lymphocytes 9.4 % (21.0-51.0); %Monocytes 8.5 % (0.0-10.0); %Neutrophils 78.8 % (42.0-75.0); Hematocrit 35.7 % (42.0-52.0); Hemoglobin 11.6 g/dL (14.0-18.0); Mean Corpuscular HGB CONC 32.5 g/dL (32.0-36.0); Mean Corpuscular Hemoglobin 25.7 pg (27.0-31.0); Mean Corpuscular Volume 79.2 fL (78.0-98.0); Mean Platelet Volume 11.9 fL (7.4-10.4); Platelet Count 281 10x3/uL (130-400); RBC Distribution Width 17.9 % (11.5-14.5); Red Blood Cell (RBC) Count 4.51 mill/uL (4.70-6.10)
[2024-10-26 04:56] LABS: Anion Gap 13 mmol/L (10-20); BUN (Urea Nitrogen) 24 mg/dL (8.4-25.7); Calc. Creatinine Clearance 46 mL/min (70-130); Calcium 8.8 mg/dL (7.8-10.44); Carbon Dioxide 22 mmol/L (23-31); Chloride 106 mmol/L (98-107); Estimated GFR 35; Glucose 138 mg/dL (83-110); Potassium 4.1 mmol/L (3.5-5.1); Sodium 137 mmol/L (136-145)
[2024-10-26] MEDS: Morphine 2 MG/ML VIAL SLOW IVP SCH (08:25)
[2024-10-26] MEDS ORDERED: Electrolyte Replacement Protocol 1 EACH FS ONE (08:41)
[2024-10-26] MEDS ORDERED: Piperacillin/Tazobactam 3.375 GM in Sodium Chloride 0.9% 100 ML IVPB SCH (08:45)
[2024-10-26] MEDS ORDERED: Electrolyte Replacement Protocol FS PRN (09:00)
[2024-10-26 09:29] LABS: Actual Bicarbonate (HCO3v) 24.9 mEq/L (22-28); Calcium, Ionized (venous) 1.11 mmol/L (1.16-1.32); Chloride (VBG) 105 mmol/L (98-106); Hematocrit-VBG 38 % (42.0-52.0); Hemoglobin (Hb) 12.8 g/dL (12.6-17.4); Potassium (VBG) 3.83 mmol/L (3.70-5.30); Sodium 137 mmol/L (133-146); pH (venous) 7.398 (7.32-7.43)
[2024-10-26] MEDS: Piperacillin/Tazobactam 3.375 GM in Sodium Chloride 0.9% 100 ML IVPB SCH ×2 (09:43→17:17)
[2024-10-26] MEDS: FLU (Fluad Triv) TS24-25 (65UP)/MF59C/PF 45 MCG/0.5 ML Syringe IM ONE (09:44)
[2024-10-26 10:38] LABS: Troponin I 0.633 ng/mL (< 0.028)
[2024-10-26 10:48] LABS: Magnesium 1.7 mg/dL (1.6-2.6)
[2024-10-26] MEDS: Aspirin 81 mg Enteric Coated Tablet PO SCH (11:31)
[2024-10-26] MEDS: Insulin Lispro 100 UNIT/ML 10 ML VIAL SC PRN ×2 (11:32→22:15)
[2024-10-26 11:36] VITALS: BMI 33.1
[2024-10-26] MEDS: Magnesium 2 GM/50 ML(in water) 2 GM in Premix 1 BAG IVPB SCH (13:19)
[2024-10-26] MEDS: Carvedilol 6.25 MG TAB PO SCH (17:20)
[2024-10-26] MEDS: Acetaminophen 325 MG TAB PO PRN (22:13)
[2024-10-26] MEDS: Apixaban 5 MG TAB PO SCH (22:13)
[2024-10-26] MEDS: Cholecalciferol 1,000 UNITS (25 MCG) TAB PO SCH (22:14)
[2024-10-26] MEDS: Multivit, Therapeutic 1 TAB PO SCH (22:14)
[2024-10-26] MEDS: Atorvastatin Calcium 40 MG TAB PO SCH (22:14)
[2024-10-26] MEDS: Cyanocobalamin (Vitamin B-12) 1,000 MCG TAB PO SCH (22:14)
[2024-10-26] MEDS: Folic Acid 1 MG TAB PO SCH (22:14)
[2024-10-26] MEDS: Thiamine 100 MG TAB PO SCH (22:14)
[2024-10-27 04:33] LABS: #Basophils 0.04 10x3/uL (0.0-0.2); %Basophils 0.6 % (0.0-1.0); %Eosinophils 3.7 % (0.0-10.0); %Lymphocytes 20.1 % (21.0-51.0); %Monocytes 12.5 % (0.0-10.0); %Neutrophils 62.8 % (42.0-75.0); Hematocrit 37.6 % (42.0-52.0); Hemoglobin 11.7 g/dL (14.0-18.0); Mean Corpuscular HGB CONC 31.1 g/dL (32.0-36.0); Mean Corpuscular Hemoglobin 25.2 pg (27.0-31.0); Mean Corpuscular Volume 80.9 fL (78.0-98.0); Mean Platelet Volume 11.4 fL (7.4-10.4); Platelet Count 267 10x3/uL (130-400); RBC Distribution Width 18.6 % (11.5-14.5); Red Blood Cell (RBC) Count 4.65 mill/uL (4.70-6.10)
[2024-10-27 05:13] LABS: Troponin I 0.254 ng/mL (< 0.028)
[2024-10-27 07:34] LABS: ALT (SGPT) 15 U/L (8-55); AST (SGOT) 27 U/L (5-34); Albumin 3.2 g/dL (3.4-4.8); Alkaline Phosphatase 52 U/L (40-110); Anion Gap 17 mmol/L (10-20); BUN (Urea Nitrogen) 20 mg/dL (8.4-25.7); Bilirubin, Total 0.4 mg/dL (0.2-1.2); Calc. Creatinine Clearance 60 mL/min (70-130); Calcium 8.6 mg/dL (7.8-10.44); Carbon Dioxide 18 mmol/L (23-31); Chloride 108 mmol/L (98-107); Estimated GFR 48; Globulin 3.2 g/dL (2.4-3.5); Glucose 90 mg/dL (83-110); Magnesium 2.2 mg/dL (1.6-2.6); Potassium 4.1 mmol/L (3.5-5.1); Protein, Total 6.4 g/dL (5.8-8.1); Sodium 139 mmol/L (136-145)
[2024-10-27] MEDS: Lactated Ringer's 1,000 ML IV SCH (21:12)
[2024-10-28] MEDS: Lisinopril 10 MG TAB PO SCH (09:26)
[2024-10-28] MEDS: Sertraline 25 MG TAB PO SCH (09:26)
[2024-10-28 09:33] LABS: #Basophils 0.03 10x3/uL (0.0-0.2); %Basophils 0.5 % (0.0-1.0); %Lymphocytes 16.6 % (21.0-51.0); %Monocytes 8.1 % (0.0-10.0); %Neutrophils 71.6 % (42.0-75.0); Hematocrit 36.7 % (42.0-52.0); Hemoglobin 11.7 g/dL (14.0-18.0); Mean Corpuscular HGB CONC 31.9 g/dL (32.0-36.0); Mean Corpuscular Hemoglobin 25.2 pg (27.0-31.0); Mean Corpuscular Volume 78.9 fL (78.0-98.0); Platelet Count 279 10x3/uL (130-400); RBC Distribution Width 18.2 % (11.5-14.5); Red Blood Cell (RBC) Count 4.65 mill/uL (4.70-6.10)
[2024-10-28 10:01] LABS: Anion Gap 12 mmol/L (10-20); BUN (Urea Nitrogen) 13 mg/dL (8.4-25.7); Calc. Creatinine Clearance 73 mL/min (70-130); Carbon Dioxide 24 mmol/L (23-31); Chloride 106 mmol/L (98-107); Estimated GFR 62; Glucose 114 mg/dL (83-110); Phosphorus 1.9 mg/dL (2.3-4.7); Potassium 4.1 mmol/L (3.5-5.1); Sodium 138 mmol/L (136-145)
[2024-10-28] MEDS: Magnesium 2 GM/50 ML(in water) 2 GM in Premix 1 BAG IVPB SCH (14:17)
[2024-10-28] MEDS: PHOS-NAK 1 PKT PACK PO SCH (14:18)
[2024-10-28] MEDS: clonazePAM 0.5 MG TAB PO SCH (23:52)
[2024-10-29 04:35] LABS: #Basophils 0.03 10x3/uL (0.0-0.2); %Basophils 0.4 % (0.0-1.0); %Eosinophils 3.1 % (0.0-10.0); %Lymphocytes 18.8 % (21.0-51.0); %Monocytes 7.9 % (0.0-10.0); %Neutrophils 69.4 % (42.0-75.0); Hematocrit 36.4 % (42.0-52.0); Hemoglobin 11.5 g/dL (14.0-18.0); Mean Corpuscular HGB CONC 31.6 g/dL (32.0-36.0); Mean Corpuscular Volume 79.1 fL (78.0-98.0); Platelet Count 273 10x3/uL (130-400); RBC Distribution Width 18.1 % (11.5-14.5)
[2024-10-29 05:04] LABS: Anion Gap 12 mmol/L (10-20); BUN (Urea Nitrogen) 12 mg/dL (8.4-25.7); Calc. Creatinine Clearance 74 mL/min (70-130); Carbon Dioxide 22 mmol/L (23-31); Chloride 106 mmol/L (98-107); Estimated GFR 63; Glucose 100 mg/dL (83-110); Magnesium 1.8 mg/dL (1.6-2.6); Potassium 3.7 mmol/L (3.5-5.1); Sodium 136 mmol/L (136-145)
[2024-10-29 05:05] LABS: Phosphorus 2.5 mg/dL (2.3-4.7)
[2024-10-29] MEDS: Magnesium 2 GM/50 ML(in water) 2 GM in Premix 1 BAG IVPB SCH (09:52)
[2024-10-29] MEDS: Empagliflozin 10 MG TAB PO SCH (09:53)
[2024-10-29] MEDS: Lisinopril 20 MG TAB PO SCH (09:53)
[2024-10-29 11:29] VITALS: BP 179/80; TEMP 98.7
[2024-10-29] MEDS ORDERED: clonazePAM 0.5 MG TAB PO SCH (21:00)
== END 2024-10-29 15:22 | DRG 70 ==
LOC: 2NO 19:49
PROVIDERS: ADMIT Family Medicine; ATTEND Internal Medicine
PROC: 4A10X4Z Monitoring of Central Nervous Electrical Activity, External Approach (ICD-10-PCS; principal; 2024-10-25)
DX: G93.41 Metabolic encephalopathy (principal); I21.4 Non-ST elevation (NSTEMI) myocardial infarction; E87.20 Acidosis, unspecified; I13.0 Hypertensive heart and chronic kidney disease with heart failure and stage 1 through stage 4 chronic kidney disease, or unspecified chronic kidney disease; I50.22 Chronic systolic (congestive) heart failure; N17.9 Acute kidney failure, unspecified; M86.9 Osteomyelitis, unspecified; I67.89 Other cerebrovascular disease; E86.0 Dehydration; N18.30 Chronic kidney disease, stage 3 unspecified; E11.22 Type 2 diabetes mellitus with diabetic chronic kidney disease; E03.9 Hypothyroidism, unspecified; E78.5 Hyperlipidemia, unspecified; I25.10 Atherosclerotic heart disease of native coronary artery without angina pectoris; E11.51 Type 2 diabetes mellitus with diabetic peripheral angiopathy without gangrene; E83.42 Hypomagnesemia; E83.39 Other disorders of phosphorus metabolism; E11.65 Type 2 diabetes mellitus with hyperglycemia; G47.30 Sleep apnea, unspecified; I07.1 Rheumatic tricuspid insufficiency; D72.829 Elevated white blood cell count, unspecified; R07.89 Other chest pain; F15.11 Other stimulant abuse, in remission; I48.0 Paroxysmal atrial fibrillation; E11.69 Type 2 diabetes mellitus with other specified complication; I25.2 Old myocardial infarction; I25.5 Ischemic cardiomyopathy; Z95.1 Presence of aortocoronary bypass graft; Z89.512 Acquired absence of left leg below knee; Z87.891 Personal history of nicotine dependence; Z91.199 Patient's noncompliance with other medical treatment and regimen due to unspecified reason; Z86.19 Personal history of other infectious and parasitic diseases; Z95.5 Presence of coronary angioplasty implant and graft; Z79.82 Long term (current) use of aspirin; Z79.899 Other long term (current) drug therapy; Z79.891 Long term (current) use of opiate analgesic; W22.8XXA Striking against or struck by other objects, initial encounter
CPT/HCPCS: 36415; 36416; 51701; 70450; 71045; 74176; 80048; 80053; 80162; 80306; 81001; 82805; 83605; 83690; 83735; 84100; 84484; 85025; 85610; 85730; 87040; 87086; 87400; 93005; 93306; 94760; 95700; 95711; 95957; 96361; 96365; 96367; 96372; 96375; J0692; J1644; J1650; J1815; J2060; J2543; J3370; J3475; J7120